=== PATIENT | female | born 2005 | race Caucasian/White ===

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

== ENCOUNTER 2025-04-08 13:55 | Emergency (ER) | payer MEDICAID, SELFPAY ==
[2025-04-08 13:56] VITALS: BP 117/76; PULSE 117; RESP 18; TEMP 36.8; O2SAT 97; BMI 23.3
--- NOTE | 2025-04-08 14:06 | US_ITS ---
PROCEDURE: TRANSVAGINAL W/PREG US 04/08/2025 REASON FOR EXAM: ABDOMINAL PAIN TECHNIQUE: TRANSVAGINAL W/PREG US FINDINGS No visualized intrauterine . No visualized gestational sac. Uterus measures 8.7 x 5.4 x 4.5 cm. No fibroids. Endometrial thickness of 18 mm. Minimal free fluid in the cul-de-sac. Right ovary measures 2.0 x 1.8 x 1.7 cm in the left ovary measures 3.2 x 2.5 x 2.2 cm. Both within preserved vascular flow. US/Transvaginal w/Preg US IMPRESSION: No visualized intrauterine . Reading Location: [id number]
--- NOTE | 2025-04-08 14:13 | EX.ED.DYSGE1 ---
HPI <VALERIA Rodriguez - Last Filed: 04/08/25 20:51> History of Present Illness Chief Complaint: Abd Pain Narrative Narrative: 20-year-old female who is G2, P1 approximately 8 weeks presents with 2 days of left lower quadrant abdominal pain. She states her period was late and she saw [facility] MRI MANAGER about 6 days ago and had a positive urine density test in the office. She initially thought this pain was ligament pain but after it persisted she called them and they recommended she seek ED evaluation. She has had first trimester nausea and vomiting but this is a chronic issue for her managed with Zofran. She denies fever or chills. No urinary symptoms. She is having normal bowel movements. No history of abdominal surgery. She is about 6 months and states her last was high risk because she had labor at 28 weeks and then vaginal delivery at 36 weeks. PFS <VALERIA Rodriguez - Last Filed: 04/08/25 20:51> [facility] Medical History ADHD Home Medications ?Medication ?Instructions ?Recorded ?Last Taken ?Type vit no.95-ferrous 1 tab PO DAILY 08/24/24 04/07/25 History fumarate 28 mg-folic acid 800 mcg tablet () ondansetron HCl 4 mg tablet 4 mg PO Q8H PRN PRN nausea/vomiting 04/08/25 04/07/25 History sertraline 100 mg tablet 100 mg PO DAILY 04/08/25 04/07/25 History Allergy/AdvReac Type Severity Reaction Status Date / Time No Known Allergies Allergy Verified 04/08/25 13:56 Family History no significant family his Social History Smoking Status: Never smoker ROS <VALERIA Rodriguez - Last Filed: 04/08/25 20:51> ROS ED ROS Narrative Constitutional: Negative for fever, chills, malaise. GI: Positive for abdominal pain, nausea, vomiting. Negative for diarrhea, constipation, melena, hematochezia. : Negative for dysuria, hematuria or frequency. EXAM <VALERIA Rodriguez - Last Filed: 04/08/25 20:51> Physical Exam Narrative Exam Narrative: CONST: Patient sitting in no acute distress. EYES: Normal inspection. NECK: Normal inspection. RESP: No respiratory distress, CTAB. CVS: Regular rate and rhythm, no murmur, no gallop. ABD: Soft mild left lower quadrant tenderness, no guarding or rebound, nondistended. Back: Normal inspection, no CVA tenderness. SKIN: Color normal, no rash, warm, dry, intact. EXTREMITIES: Normal appearance, no pedal edema. NEURO: Alert and answering questions appropriately. PSYCH: Normal affect. Const Vital Signs: 04/08/25 13:56 04/08/25 15:56 04/08/25 17:00 Temperature 98.2 F Temperature Source Temporal Pulse Rate 117 H 70 Respiratory Rate 18 Blood Pressure 117/76 110/56 L 108/64 Blood Pressure Mean 89 74 78 Pulse Ox 97 98 100 Oxygen Delivery Method Room Air Room Air Room Air 04/08/25 18:10 Temperature 97.6 F L Temperature Source Pulse Rate 64 Respiratory Rate 18 Blood Pressure 118/78 Blood Pressure Mean 91 Pulse Ox 99 Oxygen Delivery Method <Dr. Darryl Galeano DO - Last Filed: 04/08/25 16:14> Physical Exam Const Vital Signs: 04/08/25 13:56 04/08/25 15:56 04/08/25 17:00 Temperature 98.2 F Temperature Source Temporal Pulse Rate 117 H 70 Respiratory Rate 18 Blood Pressure 117/76 110/56 L 108/64 Blood Pressure Mean 89 74 78 Pulse Ox 97 98 100 Oxygen Delivery Method Room Air Room Air Room Air 04/08/25 18:10 Temperature 97.6 F L Temperature Source Pulse Rate 64 Respiratory Rate 18 Blood Pressure 118/78 Blood Pressure Mean 91 Pulse Ox 99 Oxygen Delivery Method <Dr. Mirna Alcazar MD - Last Filed: 04/08/25 23:34> Physical Exam Const Vital Signs: 04/08/25 13:56 04/08/25 15:56 04/08/25 17:00 Temperature 98.2 F Temperature Source Temporal Pulse Rate 117 H 70 Respiratory Rate 18 Blood Pressure 117/76 110/56 L 108/64 Blood Pressure Mean 89 74 78 Pulse Ox 97 98 100 Oxygen Delivery Method Room Air Room Air Room Air 04/08/25 18:10 Temperature 97.6 F L Temperature Source Pulse Rate 64 Respiratory Rate 18 Blood Pressure 118/78 Blood Pressure Mean 91 Pulse Ox 99 Oxygen Delivery Method [facility] <VALERIA Rodriguez - Last Filed: 04/08/25 20:51> [facility] Narrative Medical decision making narrative: Differential includes but not limited to UTI, threatened miscarriage, ectopic Consults: MRI MANAGER 20-year-old female G2, P1 and first trimester presents with left-sided abdominal pain. She appears well and nontoxic. She is tachycardic at 117 with otherwise normal vital signs. Soft with left upper and lower quadrant tenderness but no peritoneal signs. hCG quant is 989 which is around 4-week . UA is negative. Transvaginal ultrasound shows no intrauterine ; but based on her quant I think it is too early to visualize anything. I spoke with on-call MRI MANAGER Dr. Cortes who advised the patient call the office tomorrow and they will arrange to have her quant rechecked in 2 days. Patient was informed of this and was discharged in stable condition. Patient seen and evaluated with LAKIA. I personally interviewed and examined the patient. I was involved in all aspects of patient's orders, interpretation of results, and treatment. Patient signed out to me by Dr. Galeano pending transvaginal ultrasound results. in brief, the patient thinks she is about 8 weeks along. She has not seen an parachute inspector yet for her first ultrasound. She was presenting with left sided abdominal pain. More LUQ on initial exam. Ultrasound shows no visualized intrauterine . No visualized gestational sac. Minimal free fluid in the cul-de-sac. Right ovary measures 2.0 x 1.8 x 1.7 cm in the left ovary measures 3.2 x 2.5 x 2.2 cm. Both within preserved vascular flow. Given the patients hcg quant this would put her at approximately 3-4 weeks which coincides with no intrauterine seen on transvaginal ultrasound. 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 Lab Data Labs: Laboratory Results - last 24 hr 04/08/25 14:25 HCG, Quant 989 H Urine Color Straw Urine Clarity Clear Urine pH 6.5 Ur Specific [place] 1.010 Urine Protein Negative Urine Glucose (UA) Normal Urine Ketones 5 H Urine Occult Blood Negative Urine Nitrite Negative Urine Bilirubin Negative Urine Urobilinogen Normal Ur Leukocyte Esterase Negative Urine RBC 0-5 SEEN Urine WBC 0-5 SEEN Ur Squamous Epith Cells 5-10 SEEN Urine Bacteria 0 SEEN Urine Mucus 0 SEEN Radiography Diagnostic Testing: Clinical Impression(s) from Imaging Studies Obstetrics Ultrasound 04/08/25 14:06 IMPRESSION: No visualized intrauterine . Reading Location: [id number] <Dr. Darryl Galeano, DO - Last Filed: 04/08/25 16:14> [facility] Lab Data Labs: Laboratory Results - last 24 hr 04/08/25 14:25 HCG, Quant 989 H Urine Color Straw Urine Clarity Clear Urine pH 6.5 Ur Specific [place] 1.010 Urine Protein Negative Urine Glucose (UA) Normal Urine Ketones 5 H Urine Occult Blood Negative Urine Nitrite Negative Urine Bilirubin Negative Urine Urobilinogen Normal Ur Leukocyte Esterase Negative Urine RBC 0-5 SEEN Urine WBC 0-5 SEEN Ur Squamous Epith Cells 5-10 SEEN Urine Bacteria 0 SEEN Urine Mucus 0 SEEN Radiography Diagnostic Testing: Clinical Impression(s) from Imaging Studies Obstetrics Ultrasound 04/08/25 14:06 IMPRESSION: No visualized intrauterine . Reading Location: [facility] Treatment and Re-Evaluation :: I have personally performed a face to face assessment of the patient and have reviewed the LAKIA Note. I performed a substantive portion of the visit including all aspects of the following. My martinez findings include: History: Patient presents with abdominal pain that began yesterday. Patient states that began rather suddenly. Patient describes it as sharp. Patient states it was worse when she moves. Patient states it is worse over the left upper quadrant. Patient states she is approximately 8 weeks . Patient admits to some nausea and vomiting. Patient states she called her MRI MANAGER who referred her to the emergency department. Patient denies any dysuria, frequency, or hematuria. Patient denies any diarrhea, melena, or hematochezia. Exam: Vital signs are stable except for mild tachycardia of 117. Patient is afebrile. Patient is in no acute distress. Oral mucosa is pink and moist. Neck is supple. Trachea is midline. There is no JVD. Heart was regular rate and rhythm. Lungs are clear and equal bilaterally. Abdomen is soft. Bowel sounds are normal. There is left upper quadrant tenderness. There is no rebound or guarding noted. Cranial nerves II through XII are intact. There are no focal motor or sensory deficits noted. Medical Decision Making: Differential diagnosis includes ectopic , urinary tract infection, pyelonephritis, colitis, and urinary tract infection. Urinalysis will be obtained to assess for urinary tract infection and hematuria. Quantitative hCG will be obtained to assess for . Transvaginal ultrasound will be obtained to assess for ectopic . Urinalysis was reviewed. There is no evidence of urinary tract infection or hematuria. Quantitative hCG was reviewed and was 989. Care of the patient was turned over to the oncoming physician pending ultrasound results. <Dr. Mirna Alcazar MD - Last Filed: 04/08/25 23:34> [facility] Narrative Medical decision making narrative: Differential includes but not limited to UTI, threatened miscarriage, ectopic Consults: MRI MANAGER 20-year-old female G2, P1 and first trimester presents with left-sided abdominal pain. She appears well and nontoxic. She is tachycardic at 117 with otherwise normal vital signs. Soft with left upper and lower quadrant tenderness but no peritoneal signs. hCG quant is 989 which is around 4-week . UA is negative. Transvaginal ultrasound shows no intrauterine ; but based on her quant I think it is too early to visualize anything. I spoke with on-call MRI MANAGER Dr. Cortes who advised the patient call the office tomorrow and they will arrange to have her quant rechecked in 2 days. Patient was informed of this and was discharged in stable condition. Patient seen and evaluated with LAKIA. I personally interviewed and examined the patient. I was involved in all aspects of patient's orders, interpretation of results, and treatment. Patient signed out to me by Dr. Galeano pending transvaginal ultrasound results. in brief, the patient thinks she is about 8 weeks along. She has not seen an parachute inspector yet for her first ultrasound. She was presenting with left sided abdominal pain. More LUQ on initial exam. Ultrasound shows no visualized intrauterine . No visualized gestational sac. Minimal free fluid in the cul-de-sac. Right ovary measures 2.0 x 1.8 x 1.7 cm in the left ovary measures 3.2 x 2.5 x 2.2 cm. Both within preserved vascular flow. Given the patients hcg quant this would put her at approximately 3-4 weeks which coincides with no intrauterine seen on transvaginal ultrasound. Do not think this is an ectopic with no significant free fluid seen on ultrasound, largely unremarkable physical exam. 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 Patient discharged from the Emergency Department. I do not feel that the patient's evaluation reveals any acute reason for admission at this time. I instructed them to either follow-up with their primary care physician or promptly return to the Emergency Department for reevaluation should symptoms worsen or new symptoms develop. I explained what symptoms would indicate the need to return to the emergency department. Shared decision making was used. The patient voiced understanding of the treatment plan and is agreeable with it. Clinical impression Left lower quadrant abdominal pain Positive Lab Data Attestation: I reviewed the patient's lab results. Labs: Laboratory Results - last 24 hr 04/08/25 14:25 HCG, Quant 989 H Urine Color Straw Urine Clarity Clear Urine pH 6.5 Ur Specific [place] 1.010 Urine Protein Negative Urine Glucose (UA) Normal Urine Ketones 5 H Urine Occult Blood Negative Urine Nitrite Negative Urine Bilirubin Negative Urine Urobilinogen Normal Ur Leukocyte Esterase Negative Urine RBC 0-5 SEEN Urine WBC 0-5 SEEN Ur Squamous Epith Cells 5-10 SEEN Urine Bacteria 0 SEEN Urine Mucus 0 SEEN Radiography Diagnostic Testing: Clinical Impression(s) from Imaging Studies Obstetrics Ultrasound 04/08/25 14:06 IMPRESSION: No visualized intrauterine . Reading Location: [facility] Discharge Plan Triage Chief Complaint: Abd Pain ED Midlevel Provider: Mary Funes ED Provider: Darryl Galeano Dx/Rx/DC Orders Clinical Impression: Abdominal pain during in first trimester Instructions: Abdominal Pain Prescriptions: No Action ondansetron HCl 4 mg tablet 4 mg PO Q8H PRN PRN (Reason: nausea/vomiting) sertraline 100 mg tablet 100 mg PO DAILY PNV cmb#95-ferrous fumarate-FA [] 28 mg iron- 800 mcg tablet 1 tab PO DAILY Primary Care Provider: Halie Butts Referrals: Tami Cortes DO [Med Staff - Active Staff] - Halie Butts DO [Primary Care Provider] - Activity Restrictions/Additional Instructions: It is too early in your to see anything on the ultrasound. Make sure you call the [facility] MRI MANAGER office tomorrow. The staff there will instruct you when to get your blood work drawn next to check the hCG quant which is the hormone level. Print Language: Lithuanian Disposition Disposition: Home, Self Care Discharge Date/Time: 04/08/25 18:11
[2025-04-08 14:37] LABS: Mucous, Urine 0 SEEN /hpf (<or=2+)
[2025-04-08 14:46] LABS: Color, Urine Straw (Yellow); Glucose, Dipstick Normal (Normal); Ketone-Dipstick 5 mg/dl (Negative); Leukocyte Esterase-Dipstick Negative /ul (Negative); Nitrite-Dipstick Negative (Negative); Occult Blood-Urine Negative /ul (Negative); Protein-Dipstick Negative (Negative); Specific Gravity, Urine 1.010 (1.002-1.030); Urine Bilirubin Dipstick Negative (Negative)
[2025-04-08 15:16] LABS: hCG Titer Quant., Serum 989 mIU/mL (<9 non-preg)
[2025-04-08 15:56] VITALS: BP 110/56; PULSE 70; O2SAT 98
[2025-04-08 16:14] LABS: Red Blood Cells-Urine 0-5 SEEN /hpf (0-5); Squamous Epithelial Cells - UA 5-10 SEEN /hpf (5-10)
[2025-04-08 17:00] VITALS: BP 108/64; O2SAT 100
[2025-04-08 18:10] VITALS: BP 118/78; PULSE 64; RESP 18; TEMP 36.4; O2SAT 99
== END 2025-04-08 18:11 | disposition home or self-care (01) ==
PROVIDERS: Physician Assistant; Emergency Provider Emergency Medicine; PCP Family Medicine; Visit Provider Emergency Medicine
DX: O26.891 Other specified pregnancy related conditions, first trimester (principal); R10.32 Left lower quadrant pain; R11.2 Nausea with vomiting, unspecified; Z3A.01 Less than 8 weeks gestation of pregnancy; Z79.899 Other long term (current) drug therapy
CPT/HCPCS: 76817; 81001; 84702; 99283

== ENCOUNTER 2025-04-29 18:00 | Emergency (ER) | payer MEDICAID, SELFPAY ==
[2025-04-29 18:01] VITALS: BP 116/83; PULSE 97; RESP 16; TEMP 36.8; O2SAT 99; BMI 25.9
--- NOTE | 2025-04-29 18:32 | EX.ED.GENINJ ---
HPI History of Present Illness Chief Complaint: Nausea/Vomiting Narrative Narrative: Chief complaint and HPI: 20-year-old female who is G2, P1 and 7 weeks presents for evaluation of nausea and vomiting. Patient states that she is 7 weeks by outpatient ultrasound with her [employer]. She follows with [facility] [employer]. She states she was at their office today. Patient had hyperemesis gravidarum with her first . She has home Zofran. She states the nausea and vomiting worsened today with little p.o. intake. SAL[employer]PARTMENT SUPER[employer]OR told her to come to the emergency department for fluids. She denies any fever, chills, shortness of breath, chest pain, abdominal pain, vaginal bleeding, dysuria. Review of systems: See HPI Medications: As listed on the chart Allergies: As listed on the chart PFSH: Per chart Vital signs: As listed on the chart. Reviewed. Physical exam: Gen: A&O x3, NAD Head: Normocephalic, atraumatic Eyes: No sclera icterus, conjunctiva clear ENT: Mildly dry mucous membranes Neck: Trachea midline, No JVD CV: RRR, no murmurs, no peripheral edema Resp: Lungs CTA BL, no w/r/c GI: Abd soft, non-distended, non-tender, no r/r/g Musc: Full ROM, no deformity Skin: Warm, dry Neuro: Alert, oriented, grossly intact, sensation intact Psych: Cooperative, appropriate mood and affect [facility] Medical History ADHD Home Medications ?Medication ?Instructions ?Recorded ?Last Taken ?Type vit no.95-ferrous 1 tab PO DAILY 08/24/24 04/07/25 History fumarate 28 mg-folic acid 800 mcg tablet () ondansetron HCl 4 mg tablet 4 mg PO Q8H PRN PRN nausea/vomiting 04/08/25 04/07/25 History sertraline 100 mg tablet 100 mg PO DAILY 04/08/25 04/07/25 History Allergy/AdvReac Type Severity Reaction Status Date / Time No Known Allergies Allergy Verified 04/29/25 18:01 Social History Smoking Status: Never smoker EXAM Physical Exam Const Vital Signs: 04/29/25 18:01 04/29/25 20:01 Temperature 98.3 F Temperature Source Temporal Pulse Rate 97 75 Respiratory Rate 16 24 H Blood Pressure 116/83 H 106/76 Blood Pressure Mean 94 86 Pulse Ox 99 100 Oxygen Delivery Method Room Air Room Air MDM MDM MDM Narrative Medical decision making narrative: 20-year-old female who is G2, P1 and 7 weeks presents for evaluation of nausea and vomiting. Patient states that she is 7 weeks by outpatient ultrasound with her [employer]. She follows with [facility] [employer]. Patient had hyperemesis gravidarum with her first . She has home Zofran. She states the nausea and vomiting worsened today with little p.o. intake. SAL[employer]PARTMENT SUPER[employer]OR told her to come to the emergency department for fluids. She denies any fever, chills, shortness of breath, chest pain, abdominal pain, vaginal bleeding, dysuria. Differential diagnosis includes but is not limited to nausea vomiting and early , dehydration, electrolyte abnormality, UTI. NS bolus and Zofran ordered. Basic labs ordered with UA. Patient not having any abdominal pain or vaginal bleeding therefore I do not think any ultrasound is needed at this time. CBC with leukocytosis of 14.6. This is not unusual in . No anemia. BMP relatively unremarkable without significant electrolyte abnormality or KUNAL. UA positive for ketones which is consistent with nausea and vomiting. No UTI but she does have +1 bacteria. Will treat with Keflex for asymptomatic bacteriuria in to prevent UTI. Patient was updated of all results for and understand the plan. Symptoms have improved with medications here. Able to tolerate p.o. intake. Patient stable to discharge home. Does not need prescription for antinausea medicine as she states she has it at home. Impression: 1. Nausea and vomiting in first trimester 2. Asymptomatic bacteriuria in Lab Data Labs: Laboratory Results - last 24 hr 04/29/25 04/29/25 18:12 19:29 WBC 14.6 H RBC 5.23 Hgb 14.9 Hct 44.4 MCV 84.9 MCH 28.5 MCHC 33.6 RDW Std Deviation 38.5 RDW Coeff of Derek 12.6 Plt Count 283 MPV 11.4 Immature Gran % (Auto) 0.500 Neut % (Auto) 86.1 H Lymph % (Auto) 8.4 L [place] % (Auto) 4.6 Eos % (Auto) 0.1 Baso % (Auto) 0.3 Absolute Neuts (auto) 12.6 H Absolute Lymphs (auto) 1.23 Nucleated RBC % 0 Sodium 136 Potassium 3.7 Chloride 102 Carbon Dioxide 20.2 L Anion Gap 14 BUN 5 Creatinine 0.54 L Estim Creat Clear Calc 169.93 Est GFR (MDRD) Non-Af 135 BUN/Creatinine Ratio 9.8 L Glucose 88 Calcium 9.7 Urine Color Yellow Urine Clarity Sl. Cloudy Urine pH 6.0 Ur Specific [place] 1.020 Urine Protein 30 H Urine Glucose (UA) Normal Urine Ketones 150 A* Urine Occult Blood Negative Urine Nitrite Negative Urine Bilirubin Negative Urine Urobilinogen Normal Ur Leukocyte Esterase Negative Urine RBC 0-5 SEEN Urine WBC 0-5 SEEN Ur Squamous Epith Cells 5-10 SEEN Urine Bacteria 1+ Urine Mucus 0 SEEN Discharge Plan Triage Chief Complaint: Nausea/Vomiting ED Provider: Nate Bowling Dx/Rx/DC Orders Prescriptions: No Action ondansetron HCl 4 mg tablet 4 mg PO Q8H PRN PRN (Reason: nausea/vomiting) sertraline 100 mg tablet 100 mg PO DAILY PNV no.95-ferrous fumarate-FA [] 28 mg iron- 800 mcg tablet 1 tab PO DAILY Primary Care Provider: Halie Butts Referrals: Halie Butts, [Primary Care Provider] - Print Language: Togolese
[2025-04-29] MEDS: 0.9% Normal Saline (1000mL) 1,000 ML 1000 ML IV (18:37)
[2025-04-29 18:45] LABS: Hematocrit 44.4 % (37-47); Hemoglobin 14.9 g/dL (12.0-15.0); Immature Granulocytes Count 0.080 X10^3/uL (0.0-0.0); Mean Corp Hgb Conc 33.6 g/dL (32-36); Mean Corpuscular Volume 84.9 fL (81-99); Mean Platelet Vol. 11.4 fl (6.2-12.0); NRBC Flagged by Analyzer 0 % (0-5); Platelet Count 283 K/mm3 (150-450); RBC Distribution Width CV 12.6 % (11.6-14.6); RBC Distribution Width SD 38.5 fl (35.1-43.9); Red Blood Count 5.23 M/mm3 (4.2-5.4); White Blood Count 14.6 K/mm3 (4.4-11.0)
[2025-04-29 19:40] LABS: Anion Gap 14 (5-15); BUN 5 mg/dL (4-19); BUN/Creat Ratio 9.8 RATIO (10-20); Calcium,Total 9.7 mg/dL (7.6-11.0); Carbon Dioxide 20.2 mmol/L (21.0-32.0); Chloride 102 mmol/L (98-108); Estimated Creatinine Clearance 169.93 ml/min (50-250); Glucose 88 mg/dL (70-99); Potassium 3.7 mmol/L (3.3-5.1)
[2025-04-29 19:41] LABS: Mucous, Urine 0 SEEN /hpf (<or=2+)
[2025-04-29 19:53] LABS: Color, Urine Yellow (Yellow); Glucose, Dipstick Normal (Normal); Leukocyte Esterase-Dipstick Negative /ul (Negative); Nitrite-Dipstick Negative (Negative); Occult Blood-Urine Negative /ul (Negative); Protein-Dipstick 30 mg/dl (Negative); Specific Gravity, Urine 1.020 (1.002-1.030); Urine Bilirubin Dipstick Negative (Negative)
[2025-04-29 20:01] VITALS: BP 106/76; PULSE 75; RESP 24; O2SAT 100
[2025-04-29 20:21] LABS: Ketone-Dipstick 150 mg/dl (Negative)
[2025-04-29 20:47] LABS: Squamous Epithelial Cells - UA 5-10 SEEN /hpf (5-10)
[2025-04-29 20:49] LABS: Red Blood Cells-Urine 0-5 SEEN /hpf (0-5)
[2025-04-29 21:27] VITALS: BP 101/57; PULSE 75; RESP 18; TEMP 36.7; O2SAT 100
== END 2025-04-29 21:37 | disposition home or self-care (01) ==
PROVIDERS: Emergency Provider Surgery; PCP Family Medicine; Visit Provider Surgery
DX: O21.9 Vomiting of pregnancy, unspecified (principal); Z3A.01 Less than 8 weeks gestation of pregnancy; R82.71 Bacteriuria; O99.891 Other specified diseases and conditions complicating pregnancy
CPT/HCPCS: 80048; 81001; 85025; 87086; 87088; 96361; 96374; 99284; A4216; J2405

== ENCOUNTER 2025-05-06 18:02 | Observation (INO) | payer MEDICAID, SELFPAY ==
[2025-05-06 18:04] VITALS: BP 120/80; PULSE 73; RESP 16; TEMP 36.9; O2SAT 98; BMI 25.6
[2025-05-06] MEDS: 0.9% Normal Saline (1000mL) 1,000 ML 1000 ML IV (18:34)
[2025-05-06 19:09] LABS: Anion Gap 12 (5-15); BUN 6 mg/dL (4-19); BUN/Creat Ratio 12.8 RATIO (10-20); Calcium,Total 9.2 mg/dL (7.6-11.0); Carbon Dioxide 20.9 mmol/L (21.0-32.0); Chloride 104 mmol/L (98-108); Estimated Creatinine Clearance 182.39 ml/min (50-250); Glucose 83 mg/dL (70-99); Potassium 4.0 mmol/L (3.3-5.1)
[2025-05-06 19:15] VITALS: BP 102/75; BP 105/70; BP 95/54; PULSE 70; PULSE 80; PULSE 93
[2025-05-06 20:03] VITALS: BP 101/66; PULSE 79; RESP 14; O2SAT 98
[2025-05-06] MEDS: 0.9% Normal Saline (1000mL) 1,000 ML 999 ML IV (21:08)
[2025-05-06 21:09] LABS: Color, Urine Yellow (Yellow); Glucose, Dipstick Normal (Normal); Leukocyte Esterase-Dipstick 100 /ul (Negative); Nitrite-Dipstick Negative (Negative); Occult Blood-Urine Negative /ul (Negative); Protein-Dipstick 15 mg/dl (Negative); Specific Gravity, Urine 1.025 (1.002-1.030); Urine Bilirubin Dipstick Negative (Negative)
[2025-05-06 21:17] LABS: Ketone-Dipstick 150 mg/dl (Negative)
[2025-05-06 21:50] VITALS: BP 105/81; PULSE 81; RESP 14; O2SAT 99
[2025-05-06 23:15] VITALS: BP 102/71; PULSE 78; RESP 14; O2SAT 99
--- NOTE | 2025-05-06 23:25 | EX.ED.DYSGE1 ---
HPI History of Present Illness Chief Complaint: Nausea/Vomiting Detail of Chief Complaint: Nausea and vomiting for past several days. Informant: patient Onset/Context/Timing Onset: Days Context: Sudden Onset Timing: Continuous (Nauseous continuous), Intermittent and Waxes and wanes Quality: Patient started vomiting 3 days ago. Yesterday she had numerous episodes o Location: Nausea vomiting, 8 weeks gestation Current Severity: Severe Maximum Severity: Severe Worsened by: Relieved by: Nothing Associated Symptoms Associated Symptoms: Thirst, dry mouth, orthostatic symptoms, decreased urine output Narrative Narrative: Patient is a 20-year-old Ab0 female who is 8 weeks gestation. She is followed at the [facility]. She is present on Zofran. She states she is still vomiting. She denies fever, chills night sweats. She denies upper respiratory tract infectious symptoms. She denies chest discomfort. She complains of abdominal pain with vomiting. She has vomited numerous times. She denies coffee-ground emesis or hematemesis. She denies dysuria, frequency, urgency or hematuria. [id number], she reports decreased urine output. She gets orthostatic lightheadedness. She denies myalgias or arthralgias. She denies rash. She did report hyperemesis gravidarum with first . Prior similar symptoms: Yes Recent Illness/Hospitalization: [facility] Medical History Musculoskeletal pain Pyelonephritis ADHD Home Medications ?Medication ?Instructions ?Recorded ?Last Taken ?Type vit no.95-ferrous 1 tab PO DAILY 08/24/24 04/07/25 History fumarate 28 mg-folic acid 800 mcg tablet () ondansetron HCl 4 mg tablet 4 mg PO Q8H PRN PRN nausea/vomiting 04/08/25 04/07/25 History sertraline 100 mg tablet 100 mg PO DAILY 04/08/25 04/07/25 History cephalexin 500 mg capsule 500 mg PO BID 7 days #14 caps 04/29/25 Unknown Rx Allergy/AdvReac Type Severity Reaction Status Date / Time No Known Allergies Allergy Verified 05/06/25 18:06 Social History (Updated 05/06/25 @ 23:[address] Isidro Payne MD) household members: spouse and children Smoking Status: Never smoker ROS ROS ED Constitutional Constitutional ED: Denies chills, fever(s), subjective, sweats or weight loss Eyes Eyes: Denies blurry vision or change in vision ENT ENT ED: Reports other Details: Dry mouth and thirst ; Denies ear pain, rhinorrhea or sore throat Cardiovascular Cardiovascular: Denies chest pain or palpitations Respiratory/Chest Respiratory/Chest: Reports cough, dyspnea and dyspnea on exertion Gastrointestinal Gastrointestinal: Reports abdominal pain, nausea and vomiting; Denies diarrhea Genitourinary Genitourinary ED: Reports other Details: Decreased urine output ; Denies dysuria, hematuria or urinary frequency Musculoskeletal Musculoskeletal: Denies arthralgias or myalgias Integumentary Denies rash Neurologic Neurologic: Reports weakness; Denies paresthesias Endocrine Endocrinology: Denies cold intolerance or heat intolerance Hematologic/Lymphatic Hematologic/Lymphatic: Reports systems reviewed and no addt'l complaints, except as documented EXAM Physical Exam Const Vital Signs: 05/06/25 18:04 05/06/25 19:15 05/06/25 20:03 Temperature 98.5 F Temperature Source Oral Pulse Rate 73 79 Pulse Rate [Lying] 70 Pulse Rate [Sitting (for 1 minute prior to obtaining)] 80 Pulse Rate [Standing (for 1 minute prior to obtaining)] 93 Respiratory Rate 16 14 Blood Pressure 120/80 101/66 Blood Pressure [Lying] 95/54 L Blood Pressure [Sitting (for 1 minute prior to obtaining)] 102/75 Blood Pressure [Standing (for 1 minute prior to obtaining)] 105/70 Blood Pressure Mean 93 77 Blood Pressure Mean [Lying] 67 Blood Pressure Mean [Sitting (for 1 minute prior to obtaining)] 84 Blood Pressure Mean [Standing (for 1 minute prior to obtaining)] 81 Pulse Ox 98 98 Oxygen Delivery Method Room Air Room Air 05/06/25 21:50 05/06/25 23:15 Temperature Temperature Source Pulse Rate 81 78 Pulse Rate [Lying] Pulse Rate [Sitting (for 1 minute prior to obtaining)] Pulse Rate [Standing (for 1 minute prior to obtaining)] Respiratory Rate 14 14 Blood Pressure 105/81 H 102/71 Blood Pressure [Lying] Blood Pressure [Sitting (for 1 minute prior to obtaining)] Blood Pressure [Standing (for 1 minute prior to obtaining)] Blood Pressure Mean 89 81 Blood Pressure Mean [Lying] Blood Pressure Mean [Sitting (for 1 minute prior to obtaining)] Blood Pressure Mean [Standing (for 1 minute prior to obtaining)] Pulse Ox 99 99 Oxygen Delivery Method Room Air Room Air Positive well nourished and well developed Constitutional Narrative: Patient is ill-appearing pale. Vital signs noted. Orthostatic vital signs were negative. General Appearance ED: well developed and pallor; Negative for cyanotic or diaphoretic HEENT Reports dry mucous membranes HEENT Narrative: Head is atraumatic normocephalic. Ears are normal. Nares patent. Posterior pharynx is normal. Mouth ED: Yes dry mucous membranes Mouth: dry mucous membranes Eyes PERRL and EOMs intact bilaterally General Eye ED: Negative for pale conjunctiva or scleral icterus Neck no lymphadenopathy, supple and no JVD Chest Wall inspection of chest normal and palpation of chest normal Resp normal respiratory effort and clear to auscultation bilaterally Cardio regular rate, regular rhythm, S1 normal heart sound, S2 normal heart sound and no murmurs GI non-distended and no masses; Negative for normal to inspection, nondistended, normoactive bowel sounds, non-tender or hepatosplenomegaly Auscultation: hypoactive bowel sounds Palpation: soft and tender epigastric Back/Spine no CVA tenderness Extremity normal to inspection Neuro oriented x3 and CN's II-XII intact bilaterally Sensorium / Orientation: alert Psych mental status grossly normal Skin no rashes or lesions noted, no wounds and No skin turgor normal General Skin Exam: pallor; Negative for jaundice MDM MDM MDM Narrative Medical decision making narrative: Clinically patient looks dehydrated. Will order 1 L normal saline. She did not urinate after first liter. Second liter was ordered. Patient was initially treated with IV Zofran. She reports nausea with improvement. She was then given 10 mg of Reglan. She continued to have nausea and vomiting. She has made very minimal urine and spite of receiving 2 L of normal saline which is a proximately 30 cc/kg. Lab Data Attestation: I reviewed the patient's lab results. Lab results narrative: Basic metabolic panel is unremarkable. Urine reveals a spec gravity 1.025 with positive proteins and ketones. Labs: Laboratory Results - last 24 hr 05/06/25 05/06/25 18:33 20:55 Sodium 137 Potassium 4.0 Chloride 104 Carbon Dioxide 20.9 L Anion Gap 12 BUN 6 Creatinine 0.50 L Estim Creat Clear Calc 182.39 Est GFR (MDRD) Non-Af 138 BUN/Creatinine Ratio 12.8 Glucose 83 Calcium 9.2 Urine Color Yellow Urine Clarity Cloudy Urine pH 6.0 Ur Specific [place] 1.025 Urine Protein 15 H Urine Glucose (UA) Normal Urine Ketones 150 A* Urine Occult Blood Negative Urine Nitrite Negative Urine Bilirubin Negative Urine Urobilinogen Normal Ur Leukocyte Esterase 100 H Treatment and Re-Evaluation :: Since patient has made minimal urine still having nausea vomiting after administration of 2 different antiemetics and unable to pass p.o. challenge she was admitted to Dr. Belle Quiles service. Discharge Plan Dx/Rx/DC Orders Clinical Impression: Hyperemesis gravidarum before end of 22 week gestation with dehydration, Ketosis, Failure of outpatient treatment Disposition Disposition: Acute Care Hospital [facility]
[2025-05-06 23:41] VITALS: BP 108/60; PULSE 80; RESP 16; TEMP 36.9; O2SAT 100
--- NOTE | 2025-05-06 23:52 | ED.RN ---
REPORT CALLED TO [facility]. NO FURTHER QUESTIONS AT THIS TIME.
--- OUTSIDE RECORDS SUMMARY | 2025-05-07 | XMS RPT_ITS | CCD ---
Author Organization [facility] Care Team Providers Care Wastewater Treatment Supervisor Name Role Phone Kuldeep Khan MD Primary Care Provider [phone] Unavailable Primary Care Provider UnavailKuldeep Lindo MD Primary Care Provider Rachel SEALS, Paula Najera Unavailable Unavailable DAMON BEAVER Attending Unavailable STRONG, KULDEEP H Primary Care Unavailable MANISH JOHNSON Admitting Unavailable Kuldeep Khan MD Primary Care Provider Unavailable Primary Care Provider UnavailDr. Halie Evans DO Primary Care Provider Dr. Darryl Galeano DO Emergency Provider Diony Ferreira MD Primary Care Provider Dr. Darryl Galeano DO Attending Provider Dr. Nate Bowling DO Emergency Provider TOBY ROME Attending Unavailable STRONG, KULDEEP H Primary Care Unavailable TOBY ROME Attending Unavailable TOBY ROME Referring Unavailable STRONG, KULDEEP H Primary Care Unavailable PEGGY CEDILLO Attending Unavailable STRONG, KULDEEP H Primary Care Unavailable SETH CASTRO Attending Unavailable STRONG, KLUDEEP H Primary Care Unavailable FERREIRA, DIONY Primary Care Unavailable FERREIRADIONY Attending Unavailable TOBY ROME Attending Unavailable FERREIRA, DIONY Primary Care Unavailable ENE KING Attending Unavailable FERREIRA, DIONY Primary Care Unavailable HAURY, TOBY Referring Unavailable STRONG, KULDEEP H Primary Care Unavailable SUELLEN CORTES Attending Unavailable STRONG, KULDEEP H Primary Care Unavailable SELF Referring Unavailable PARADISE DIAZ Attending Unavailable LISA GREGORY Attending Unavailable STRONG, KULDEEP H Primary Care Unavailable FERREIRA, DIONY Referring Unavailable FERREIRA, DIONY Referring Unavailable STRONG, KULDEEP H Primary Care Unavailable ALISON GRIMM Attending Unavailable BELLE CARRILLO Referring Unavailable Mathew'PEGGY RAMEY Attending Unavailable STRONG, KULDEEP H Primary Care Unavailable HAURY, TOBY Referring Unavailable STRONG, KULDEEP H Primary Care Unavailable HAURY, TOBY Referring Unavailable STRONG, KULDEEP H Primary Care Unavailable BELLE CARRILLO Attending Unavailable STRONG, KULDEEP H Primary Care Unavailable HAURY, TOBY Attending Unavailable STRONG, KULDEEP H Primary Care Unavailable STRONG, KULDEEP H Primary Care Unavailable HAURY, TOBY Referring Unavailable PEGGY CEDILLO Attending Unavailable STRONG, KULDEEP H Primary Care Unavailable STRONG, KULDEEP H Primary Care Unavailable SELF Referring Unavailable DIONY FERREIRA Referring Unavailable FERREIRA, DIONY Primary Care Unavailable STRONG, KULDEEP H Primary Care Unavailable ALISON GRIMM Attending Unavailable KATINA REDDY Attending Unavailable STRONG, KULDEEP H Primary Care Unavailable STRONG, KULDEEP H Primary Care Unavailable HAURY, TOBY Attending Unavailable STRONG, KULDEEP H Primary Care Unavailable HAURY, TOBY Attending Unavailable STRONG, KULDEEP H Primary Care Unavailable STRONG, KULDEEP H Primary Care Unavailable THOMPSON GONZALEZ Attending Unavail able STRONG, KULDEEP H Primary Care Unavailable STRONG, KULDEEP H Referring Unavailable DIONY FERREIRA Attending Unavailable HAURY, TOBY Attending Unavailable STRONG, KULDEEP H Primary Care Unavailable HAURY, TOBY Referring Unavailable STRONG, KULDEEP H Primary Care Unavailable KATINA REDDY Referring Unavailable STRONG, KULDEEP H Primary Care Unavailable BELLE CARRILLO Attending Unavailable STRONG, KULDEEP H Primary Care Unavailable JEREMI CARRILLOCA Sotero Referring Unavailable STRONG, KULDEEP H Primary Care Unavailable KB BELLE L Referring Unavailable PEGGY CEDILLO Attending Unavailable STRONG, KULDEEP H Primary Care Unavailable Debbie Cedilloica Admitting Unavailable Debbie Cedilloica Attending Unavailable Strong, Kuldeep Primary Care Unavailable Belle Carrillo Attending Unavailable Kb Belle Referring Unavailable Strong, Kuldeep Primary Care Unavailable CedilloDebbiePeggy Attending Unavailable Cedillo, Peggy Referring Unavailable Strong, Kuldeep Primary Care Unavailable Strong, Kuldeep Primary Care Unavailable Debbie Cedilloica Attending Unavailable Dinorah Cortesa Attending Unavailable Wiswell, Suellen Referring Unavailable Strong, Kuldeep Primary Care Unavailable Strong, Kuldeep Primary Care Unavailable Alison Grimm Admitting Unavailable Alison Grimm Attending Unavailable Alison Grimm Referring Unavailable Nate Bowling Attending UnavailHalie Evans Primary Care Unavailable Halie Butts Primary Care Unavailable Darryl Galeano Attending Unavailable Darryl Galeano Attending Unavailable Strong, Kuldeep Primary Care Unavailable Strong, Kuldeep Primary Care Unavailable Addie Bustos Attending Unavailable Kuldeep Khan Primary Care Unavailable Provider, Ed Physician Attending Unavailab Thompson Morejon Admitting Unavail able Thompson Trevino Attending Unavail able Kuldeep Khan Primary Care Unavailable Peggy Cedillo Consulting Unavailable Medications Current Medications Medication Drug Class(es) Dates Sig (Normalized) Sig (Original) aspirin 81 mg delayed release oral tablet (4 sources) Platelet Aggregation Inhibitor, Nonsteroidal Anti-inflammatory Drug Start: 04-29-2025 take 1 tablet by mouth once daily aspirin, enteric coated (ECOTRIN LOW STRENGTH) 81 mg EC tablet Indications: with uncertain dates in first trimester (HCC) Take 1 tablet by mouth once daily. 90 tablet 3 04/29/2025 Active Start: 06-05-2024 End: 06-30-2024 take 1 tablet by mouth once daily aspirin, enteric coated (ASPIRIN, ENTERIC COATED) 81 mg EC tablet Take 1 tablet by mouth once daily. 30 tablet 4 06/05/2024 06/30/2024 Discontinued cephalexin 500 mg oral capsule (10 sources) Cephalosporin Antibacterial Start: 04-29-2025 take 1 capsule by mouth twice daily Cephalexin 500 mg capsule Active 500 mg PO TWICE A DAY 14 7 0 April 29, 2025 12:00am Start: 01-12-2025 End: 01-19-2025 take 1 capsule by mouth four times daily cephALEXin (KEFLEX) 500 mg capsule Take 1 capsule by mouth four times daily for 7 days. 28 capsule 01/12/2025 01/19/2025 Active Start: 11-12-2024 End: 11-19-2024 take 1 capsule by mouth four times daily cephALEXin (KEFLEX) 500 mg capsule Take 1 capsule by mouth four times daily for 7 days. 28 capsule 11/12/2024 11/19/2024 Active Start: 10-13-2024 End: 10-29-2024 take 1 capsule by mouth four times daily cephALEXin (KEFLEX) 500 mg capsule Take 1 capsule by mouth four times daily. 40 capsule 10/13/2024 10/29/2024 Discontinued cholecalciferol 0.025 mg oral capsule (5 sources) Vitamin D Start: 04-16-2025 End: 04-16-2026 take 1 capsule by mouth once daily Cholecalciferol, Vitamin D3, (VITAMIN D) 25 mcg (1,000 unit) cap Take 1 capsule by mouth once daily. 90 capsule 3 04/16/2025 04/16/2026 Active clotrimazole 10 mg/ml topical cream (1 source) Azole Antifungal Start: 11-12-2024 End: 11-19-2024 clotrimazole (LOTRIMIN) 1 % cream Apply to affected area two times a day for 7 days. 12 g 11/12/2024 11/19/2024 Active hydrocortisone 0.01 mg/mg topical ointment (8 sources) Corticosteroid Start: 04-14-2025 End: 05-05-2025 hydrocortisone 1 % ointment Indications: Eczema, unspecified type Apply to affected area two times a day for 21 days. Apply twice daily for 2 weeks then daily for 1 week 56 g 04/14/2025 05/05/2025 Active ondansetron 4 mg oral tablet (20 sources) Serotonin-3 Receptor Antagonist Start: 04-22-2025 take 1 tablet by mouth every eight hours as needed ondansetron (ZOFRAN) 4 mg tablet Take 1 tablet by mouth every 8 hours as needed for nausea/vomiting. 30 tablet 04/22/2025 Active Start: 04-04-2025 End: 04-19-2025 take 1 tablet by mouth every eight hours as needed ondansetron (ZOFRAN) 4 mg tablet Take 1 tablet by mouth every 8 hours as needed for nausea/vomiting. 30 tablet 04/22/2025 Active Start: 10-22-2024 End: 10-24-2024 take 1 tablet by mouth every eight hours as needed for nausea Ondansetron 4 mg tablet,disintegrating Discontinued 4 mg PO EVERY 8 HOURS NEEDED as needed for nausea October 22, 2024 1:00am October 24, 2024 11:06am Start: 09-12-2024 End: 10-10-2024 take 1 tablet by mouth every eight hours as needed for nausea Ondansetron 4 mg tablet,disintegrating Discontinued 4 mg PO EVERY 8 HOURS NEEDED as needed for Nausea September 12, 2024 1:00am October 10, 2024 10:43pm Start: 08-03-2024 End: 10-12-2024 take 1 tablet by mouth once daily Ondansetron Hcl 4 mg tablet Discontinued 4 mg PO DAILY August 03, 2024 1:00am October 12, 2024 2:21am Start: 03-27-2024 End: 11-26-2024 take 1 tablet by mouth every eight hours as needed for nausea Ondansetron Hcl 4 mg tablet Discontinued 4 mg PO EVERY 8 HOURS NEEDED as needed for nausea/vomiting April 07, 2024 12:00am May 26, 2024 5:57pm oseltamivir 75 mg oral capsule (1 source) Neuraminidase Inhibitor Start: 09-19-2023 End: 09-24-2023 take 1 capsule by mouth twice daily oseltamivir (TAMIFLU) 75 mg capsule Indications: Influenza A Take 1 capsule by mouth two times a day for 5 days. 10 capsule 0 09/19/2023 09/24/2023 Active Comment on above: Take 1 capsule by mo [facility] two times a day for 5 days. Pnv Cmb#95-Ferrous Fumarate-Fa () 28 mg iron- 800 mcg tablet (1 source) Start: 08-24-2024 Pnv Cmb#95-Ferrous Fumarate-Fa () 28 mg iron- 800 mcg tablet Active 1 {tbl} PO DAILY August 24, 2024 1:00am Pnv No.95-Ferrous Fumarate-Fa () 28 mg iron- 800 mcg tablet (1 source) Start: 08-24-2024 Pnv No.95-Ferrous Fumarate-Fa () 28 mg iron- 800 mcg tablet Active 1 {tbl} PO DAILY August 24, 2024 1:00am vits no.138/folic/dha (ALIVE ORAL) (6 sources) vits no.138/folic/dha (ALIVE ORAL) Take by mouth. Active promethazine hydrochloride 12.5 mg rectal suppository (20 sources) Phenothiazine Start: 04-19-2025 take 12.5 mg rectal route every six hours as needed promethazine (PHENERGAN) 12.5 mg suppository 1 suppository by RECTAL route every 6 hours as needed. 40 suppository 1 04/19/2025 Active Start: 05-08-2024 End: 10-10-2024 take 1 tablet by mouth every six hours as needed for nausea and vomiting Promethazine 25 mg tablet Discontinued 25 mg PO EVERY 6 HOURS NEEDED as needed for nausea and vomiting May 26, 2024 12:00am October 10, 2024 10:41pm sertraline 100 mg oral tablet (20 sources) Serotonin Reuptake Inhibitor Start: 02-25-2025 End: 02-25-2026 take 1 tablet by mouth once daily sertraline (ZOLOFT) 100 mg tablet Indications: mood disorder (HCC) Take 1 tablet by mouth once daily. 90 tablet 3 02/25/2025 02/25/2026 Active Start: 11-26-2024 End: 02-25-2025 take 1 tablet by mouth once daily sertraline (ZOLOFT) 50 mg tablet Indications: mood disorder (HCC) Take 1 tablet by mouth once daily. 90 tablet 3 12/30/2024 02/25/2025 Discontinued Completed/Discontinued Medications Medication Drug Class(es) Dates Sig (Normalized) Sig (Original) acetaminophen 500 mg oral tablet (4 sources) Start: 10-10-2024 End: 04-08-2025 take 1-10 tablets by mouth every six hours as needed for pain Acetaminophen 500 mg Tablet Discontinued 1000 mg PO EVERY 6 HOURS NEEDED as needed for Pain 1-10 Or Fever 0 0 October 24, 2024 1:00am April 08, 2025 2:23pm 3-bead 24 hr amphetamine aspartate 3.125 mg / amphetamine sulfate 3.125 mg / dextroamphetamine saccharate 3.125 mg / dextroamphetamine sulfate 3.125 mg extended release oral capsule (5 sources) Central Nervous System Stimulant Start: 07-04-2022 End: 06-21-2023 take 1 capsule by mouth once daily dextroamphetamine -amphetamine (MYDAYIS) 12.5 mg CT24 Indications: Attention deficit hyperactivity disorder (ADHD), combined type Take 1 capsule by mouth once daily for 90 days. 90 Each 0 07/04/2022 06/21/2023 Discontinued (Discontinued by Patient) Comment on above: Take 1 capsule by [facility] once daily for 90 days. betamethasone 3 mg/ml / betamethasone acetate 3 mg/ml injectable suspension (10 sources) Corticosteroid Start: 08-25-2024 End: 08-25-2024 betamethasone acetate-betametha sone sodium phosphate 12 mg injection (CELESTONE) Start: 08-25-2024 End: 08-25-2024 inject 1 dose by intramuscular injection once 12 mg, INTRAMUSCULAR, ONCE, 1 dose, On Sat08/25/24 at 1700, Protect From Light. Start: 08-24-2024 End: 08-26-2024 inject 12 mg by intramuscular injection every twenty-four hours betamethasone acetate-betamethasone sodium phosphate 12 mg injection (CELESTONE) Start: 08-24-2024 End: 08-26-2024 inject 2 mL by intramuscular injection every twenty-four hours betamethasone acetate-betamethasone sodium phosphate (CELESTONE) 6 mg/mL injection Indications: 28 weeks gestation of , Supervision of high risk in second trimester , Threatened premature labor, antepartum Inject 2 mL intramuscularly every 24 hours for 2 days. 4 mL 08/24/2024 08/26/2024 Active cloNIDine hydrochloride 0.1 mg oral tablet (11 sources) Central alpha-2 Adrenergic Agonist Start: 06-21-2023 End: 03-27-2024 take 1 tablet by mouth twice daily cloNIDine HCl (CATAPRES) 0.1 mg tablet Take 1 tablet by mouth two times a day. 90 tablet 1 06/21/2023 03/27/2024 Discontinued Start: 07-04-2022 End: 06-21-2023 take 1 tablet by mouth once daily at bedtime cloNIDine HCl (CATAPRES) 0.2 mg tablet Indications: Attention deficit hyperactivity disorder (ADHD), combined type Take 1 tablet by mouth daily at bedtime. 90 tablet 3 07/04/2022 06/21/2023 Discontinued (Dosage adjustment) Comment on above: Take 1 tablet by ashleigh th daily at bedtime. Take 1 tablet by ashleigh th two times a day. cyclobenzaprine hydrochloride 5 mg oral tablet (11 sources) Muscle Relaxant Start: 025 End: take 1 tablet by mouth three times daily as needed for muscle spasms Cyclobenzaprine 5 mg Tablet Discontinued 5 mg PO 3 TIMES DAILY NEEDED as needed for Muscle Spasm 0 0 October 13, 2024 1:00am October 24, 2024 11:06am 24 hr dexmethylphenidate hydrochloride 10 mg extended release oral capsule (4 sources) Central Nervous System Stimulant Start: 018 End: Dexmethylphenidate 10 MG capsule,ER biphasic 50-50 Discontinued 10 mg PO DAILY November 25, 2017 12:00am April 07, 2024 6:47pm ADHD Start: 11-25-2017 End: 04-07-2024 Dexmethylphenidate 20 MG cap sharan,ER biphasic 50-50 Discontinued 20 mg PO DAILY November 25, 2017 12:00am April 07, 2024 6:47pm ADHD 1 ml diphenhydrAMINE hydrochloride 50 mg/ml cartridge (1 source) Histamine-1 Receptor Antagonist Start: 05-17-2024 End: 05-17-2024 25 mg, Intravenous, ONCE, 1 dose, On 05/17/24 at 1730 Ethinyl Estradiol / norgestimate (7 sources) Progestin, Estrogen Start: 06-15-2022 End: 10-07-2023 take 1 tablet by mouth once daily JIMBO 0.25-35 mg-mcg per tablet Take 1 tablet by mouth once daily. 0 06/15/2022 10/07/2023 Discontinued (Course of therapy completed) Start: 06-15-2022 take 1 tablet by ashleigh th once daily JIMBO 0.25-35 mg-mcg per tablet Take 1 tablet by mouth once daily. 0 06/15/2022 Active Comment on above: Take 1 tablet by ashleigh th once daily. famotidine 20 mg oral tablet (16 sources) Histamine-2 Receptor Antagonist Start: End: take 1 tablet by mouth twice daily famotidine (PEPCID) 20 mg tablet Take 1 tablet by mouth two times a day. 60 tablet 1 10/15/2024 11/26/2024 Discontinued Start: 03-27-2024 End: 08-22-2024 take 1 tablet by mouth twice daily Famotidine 20 mg tablet Discontinued 20 mg PO TWICE A DAY May 26, 2024 12:00am August 22, 2024 9:20am ferrous sulfate 140 mg extended release oral tablet (7 sources) Start: 10-13-2024 End: 10-29-2024 take 1 tablet by mouth once daily ferrous sulfate (SLOW FE) 140 mg (45 mg iron) TbER Take 1 tablet by mouth once daily. With orange juice. 30 tablet 1 10/13/2024 10/29/2024 Discontinued ibuprofen 600 mg oral tablet (2 sources) Nonsteroidal Anti-inflammatory Drug Start: 10-24-2024 End: 04-08-2025 take 1 tablet by mouth every six hours as needed for pain Ibuprofen 600 mg Tablet Discontinued 600 mg PO EVERY 6 HOURS NEEDED as needed for Pain Score 1-10 0 0 October 24, 2024 1:00am April 08, 2025 2:23pm iv contrast (will be provided with radiology test) (4 sources) Start: 04-13-2025 End: 04-14-2025 inject 1 dose intravenously once iv contrast (will be provided with radiology test) MRI TSP Inject, intravenously, once for 1 dose. No IV access, insert saline lock prior to the beginning of sedation, infusion, injection of imaging exam. Discontinue saline lock post exam. If Pt. has a central line or IVAD, may access for administration according to line specific nursing protocol. Once exam is complete flush line and de-access according to line specific nursing protocol in the MR contrast administration guidelines link. 1 each 04/13/2025 04/14/2025 Start: 04-13-2025 End: 04-14-2025 iv contrast (will be provide d with radiology test) MRI LSP Inject, intravenously, once for 1 dose. No IV access, insert saline lock prior to the beginning of sedation, infusion, injection of imaging exam. Discontinue saline lock post exam. If Pt. has a central line or IVAD, may access for administration according to line specific nursing protocol. Once exam is complete flush line and de-access according to line specific nursing protocol in the MR contrast administration guidelines link. 1 each 04/13/2025 04/14/2025 Start: 04-13-2025 End: 04-14-2025 inject 1 dose intravenously once iv contrast (will be provided with radiology test) MRI TSP Inject, intravenously, once for 1 dose. No IV access, insert saline lock prior to the beginning of sedation, infusion, injection of imaging exam. Discontinue saline lock post exam. If Pt. has a central line or IVAD, may access for administration according to line specific nursing protocol. Once exam is complete flush line and de-access according to line specific nursing protocol in the MR contrast administration guidelines link. 1 each 04/13/2025 04/14/2025 Active Start: 04-13-2025 End: 04-14-2025 iv contrast (will be provide d with radiology test) MRI LSP Inject, intravenously, once for 1 dose. No IV access, insert saline lock prior to the beginning of sedation, infusion, injection of imaging exam. Discontinue saline lock post exam. If Pt. has a central line or IVAD, may access for administration according to line specific nursing protocol. Once exam is complete flush line and de-access according to line specific nursing protocol in the MR contrast administration guidelines link. 1 each 04/13/2025 04/14/2025 Active 2 ml metoclopramide 5 mg/ml prefilled syringe (1 source) Dopamine-2 Receptor Antagonist Start: 05-17-2024 End: 05-17-2024 5 mg, Intravenous, ONCE, 1 dose, On 05/17/24 at 1730 metroNIDAZOLE 500 mg oral tablet (2 sources) Nitroimidazole Antimicrobial Start: 08-22-2024 End: 10-10-2024 take 1 tablet by mouth twice daily Metronidazole 500 mg tablet Discontinued 500 mg PO TWICE A DAY 14 0 August 22, 2024 1:00am October 10, 2024 10:41pm nitrofurantoin, macrocrystals 25 mg / nitrofurantoin, monohydrate 75 mg oral capsule (5 sources) Nitrofuran Antibacterial Start: 05-26-2024 End: 08-22-2024 take 1 capsule by mouth every twelve hours Nitrofurantoin Monohyd/M-Cryst (Macrobid) 100 mg capsule Discontinued 100 mg PO Q12H 14 7 0 May 26, 2024 12:00am August 22, 2024 9:20am On Hold: pt states hasnt taken in a long time must administer with a meal/food Start: 03-04-2023 End: 03-09-2023 take 1 capsule by mouth twice daily nitrofurantoin monohydrate and macrocrystal (MACROBID) 100 mg capsule Take 1 capsule by mouth twice daily for 5 days. 10 capsule 0 03/04/2023 03/09/2023 Active Start: 11-29-2022 End: 12-04-2022 take 1 capsule by mouth twice daily at mealtime nitrofurantoin monohydrate and macrocrystal (MACROBID) 100 mg capsule Take 1 capsule by mouth twice daily with meals for 5 days. 10 capsule 0 11/29/2022 12/04/2022 Active Comment on above: Take 1 capsule by mo ut twice daily with meals for 5 days. Take 1 capsule by [facility] twice daily for 5 days. pantoprazole 40 mg delayed release oral tablet (20 sources) Proton Pump Inhibitor Start: End: take 1 tablet by mouth once daily Pantoprazole 20 mg tablet,delayed release (DR/EC) Discontinued 20 mg PO DAILY August 21, 2024 1:00am October 12, 2024 2:21am Start: 07-27-2024 End: 04-08-2025 take 1 tablet by mouth once daily Pantoprazole 40 mg tablet,delayed release (DR/EC) Discontinued 40 mg PO DAILY October 12, 2024 1:00am April 08, 2025 2:23pm Start: 04-30-2024 End: 07-27-2024 take 1 tablet by mouth once daily pantoprazole DR (PROTONIX) 20 mg tablet Take 1 tablet by mouth once daily. 90 tablet 06/30/2024 07/27/2024 Discontinued take 1 tablet by ashleigh once daily Pantoprazole [address] tablet DR Take 1 tablet by mouth daily. Active PNV/iron,carb/docusat/folic ac (PRENA-CAP ORAL) (20 sources) End: 10-29-2024 take 1 tablet by mouth once daily before mealtime PNV/iron,carb/docusat/folic ac (PRENA-CAP ORAL) Take 1 tablet by mouth once daily. 10/29/2024 Discontinued take 1 tablet by ashleigh once daily before mealtime PNV/iron,carb/docusat/folic ac (PRENA-CA P ORAL) Take 1 tablet by mouth once daily. Active take 1 tablet by ashleigh once daily before mealtime PNV/iron,carb/docusat/folic ac (PRENA-CA P ORAL) Take 1 tablet by mouth once daily. 0 Active progesterone 200 mg oral capsule (20 sources) Progesterone Start: 07-13-2024 End: 04-09-2025 Progesterone Micronized 200 mg capsule Discontinued 200 mg VAGINAL DAILY October 10, 2024 1:00am October 22, 2024 4:38pm 250 ml sodium chloride 9 mg/ml injection (1 source) Start: 05-17-2024 End: 05-17-2024 1,000 mL, Intravenous, ONCE, 1 dose, On 05/17/24 at 1730 Problems Active Problems Problem Classification Problem Date Documented Date Episodic/Chronic Abdominal pain (12 sources) Rebound tenderness; Translations: [Rebound abdominal tenderness, unspecified site] Onset: 04-13-2025 10-19-2024 Episodic Comment on above: Right mid quadrant Allergic reactions (2 sources) Eczema; Translations: [Dermatitis, unspecified] Onset: 04-14-2025 04-14-2025 Episodic Anxiety disorders (20 sources) Mixed anxiety and depressive disorder; Translations: [Anxiety disorder, unspecified] Onset: 08-25-2024 08-25-2024 Chronic Attention-deficit, conduct, and disruptive behavior disorders (20 sources) Attention deficit hyperactivity disorder; Translations: [Attention-deficit hyperactivity disorder, unspecified type] Onset: 08-28-2011 08-28-2011 Chronic Attention-deficit, conduct, and disruptive behavior disorders (1 source) Attention deficit hyperactivity disorder, combined type; Translations: [Attention-deficit hyperactivity disorder, combined type] 03-27-2024 Chronic Conditions associated with dizziness or vertigo (2 sources) Dizziness; Translations: [Dizziness and giddiness] 06-03-2024 Episodic Contraceptive and procreative management (1 source) Subcutaneous contraceptive implant present; Translations: [Encounter for surveillance of implantable subdermal contraceptive] 10-07-2023 Episodic Genitourinary symptoms and ill-defined conditions (7 sources) Increased frequency of urination; Translations: [Frequency of micturition] Episodic Immunizations and screening for infectious disease (1 source) Encounter for screening for infections with a predominantly sexual mode of transmission; Translations: [Screen for STD (sexually transmitted disease)] Onset: 04-29-2025 Episodic Inflammatory diseases of female pelvic organs (2 sources) Bacterial vaginosis; Translations: [Acute vaginitis] 08-22-2024 Episodic Influenza (1 source) Influenza due to Influenza A virus; Translations: [Influenza due to other identified influenza virus with other respiratory manifestations] 09-19-2023 Episodic Menstrual disorders (5 sources) Menstrual period late; Translations: [Irregular menstruation, unspecified] Onset: 01-12-2025 03-09-2024 Chronic Miscellaneous mental health disorders (2 sources) Chronic insomnia; Translations: [Psychophysiologic insomnia] Onset: 04-14-2025 04-14-2025 Chronic Mood disorders (1 source) Depressive disorder; Translations: [Depression, unspecified depression type] 04-14-2025 Chronic Mood disorders (1 source) Mood disorders; Translations: [Depression, unspecified depression type] Onset: 04-14-2025 Other complications of (19 sources) Vomiting of , unspecified; Translations: [Unspecified vomiting of , unspecified as to episode of care or not applicable] Onset: 03-27-2024 03-27-2024 Episodic Other complications of (20 sources) High risk ; Translations: [Supervision of high risk , unspecified, second trimester] Onset: 03-27-2024 05-22-2024 Episodic Other complications of (2 sources) Pyelonephritis in ; Translations: [Infections of kidney in , third trimester] 10-13-2024 Episodic Other complications of (2 sources) Abdominal pain in ; Translations: [Other specified related conditions, first trimester] 04-08-2025 Episodic Other complications of (2 sources) Reduced movement; Translations: [Decreased movements, unspecified trimester, not applicable or unspecified] 08-30-2024 Episodic Other complications of (1 source) Pain in female pelvis; Translations: [Other specified related conditions, unspecified trimester] 04-08-2025 Episodic Other complications of (1 source) Uncertain viability of ; Translations: [ with inconclusive viability, not applicable or unspecified] 04-16-2025 Episodic Other complications of (3 sources) Finding of pattern of ; Translations: [Supervision of other high risk pregnancies, unspecified trimester] Onset: 04-29-2025 04-29-2025 Episodic Other complications of (2 sources) with inconclusive viability, not applicable or unspecified; Translations: [Encounter to determine viability of , single or unspecified fetus (HCC)] Onset: 04-16-2025 Episodic Other complications of (2 sources) Mild hyperemesis gravidarum; Translations: [Hyperemesis gravidarum (HCC)] Onset: 05-22-2024 Episodic Other complications of (1 source) Other specified related conditions, unspecified trimester; Translations: [Pelvic pain in (HCC)] Onset: 04-14-2025 Episodic Other connective tissue disease (1 source) Pain of bilateral hands; Translations: [Pain in right hand] 06-21-2023 Episodic Other connective tissue disease (1 source) Pain of right thigh; Translations: [Pain in right thigh] 10-29-2024 Episodic Other connective tissue disease (2 sources) Musculoskeletal pain; Translations: [Myalgia, other site] 10-19-2024 Episodic Other nervous system disorders (1 source) Other chronic pain; Translations: [Chronic midline thoracic back pain] Onset: 03-03-2025 Chronic Other screening for suspected conditions (not mental disorders or infectious disease) (9 sources) Patient encounter status; Translations: [Encounter for screening for nuchal translucency] Onset: 05-13-2024 05-13-2024 Episodic Other skin disorders (2 sources) Eruption; Translations: [Rash and other nonspecific skin eruption] 04-17-2024 Episodic Other upper respiratory infections (2 sources) Sore throat symptom; Translations: [Acute pharyngitis, unspecified] 09-19-2023 Episodic Residual codes; unclassified (1 source) Initial insomnia; Translations: [Other insomnia] 06-21-2023 Chronic Residual codes; unclassified (1 source) Viral syndrome; Translations: [Other general symptoms and signs] 09-19-2023 Episodic Residual codes; unclassified (1 source) Procedure not done; Translations: [Procedure and treatment not carried out, unspecified reason] 01-26-2024 Episodic Residual codes; unclassified (1 source) Gestation period, 5 weeks; Translations: [Less than 8 weeks gestation of ] 03-27-2024 Episodic Residual codes; unclassified (1 source) Gestation period, 12 weeks; Translations: [12 weeks gestation of ] 05-08-2024 Episodic Residual codes; unclassified (2 sources) Gestation period, 13 weeks; Translations: [13 weeks gestation of ] 05-13-2024 Episodic Residual codes; unclassified (1 source) Gestation period, 14 weeks; Translations: [14 weeks gestation of ] 05-22-2024 Episodic Residual codes; unclassified (1 source) Gestation period, 16 weeks; Translations: [16 weeks gestation of ] 06-05-2024 Episodic Residual codes; unclassified (2 sources) Gestation period, 20 weeks; Translations: [20 weeks gestation of ] 06-30-2024 Episodic Residual codes; unclassified (2 sources) Gestation period, 22 weeks; Translations: [22 weeks gestation of ] 07-13-2024 Episodic Residual codes; unclassified (3 sources) Gestation period, 24 weeks; Translations: [24 weeks gestation of ] 07-27-2024 Episodic Residual codes; unclassified (3 sources) Gestation period, 28 weeks; Translations: [28 weeks gestation of ] 08-24-2024 Episodic Residual codes; unclassified (9 sources) Gestation period, 30 weeks; Translations: [30 weeks gestation of ] Onset: 09-29-2024 09-08-2024 Episodic Residual codes; unclassified (1 source) Gestation period, 31 weeks; Translations: [31 weeks gestation of ] 09-15-2024 Episodic Residual codes; unclassified (1 source) Gestation period, 32 weeks; Translations: [32 weeks gestation of ] 09-23-2024 Episodic Residual codes; unclassified (1 source) Gestation period, 33 weeks; Translations: [33 weeks gestation of ] 09-30-2024 Episodic Residual codes; unclassified (3 sources) Gestation period, 35 weeks; Translations: [35 weeks gestation of ] 10-15-2024 Episodic Comment on above: HD#3 Residual codes; unclassified (3 sources) Gestation period, 36 weeks; Translations: [36 weeks gestation of ] 10-22-2024 Episodic Residual codes; unclassified (2 sources) Gestation period, 26 weeks; Translations: [26 weeks gestation of ] 08-22-2024 Episodic Residual codes; unclassified (2 sources) Gestation period, 7 weeks; Translations: [Less than 8 weeks gestation of ] 04-29-2025 Episodic Residual codes; unclassified (2 sources) Less than 8 weeks gestation of ; Translations: [7 weeks gestation of ([facility])] Onset: 05-13-2024 Episodic Spondylosis; intervertebral disc disorders; other back problems (9 sources) Chronic thoracic back pain; Translations: [Pain in thoracic spine] Onset: 03-03-2025 02-26-2025 Episodic Unclassified (20 sources) [facility] Education - COMMON Onset: 03-27-2024 03-27-2024 Unclassified (20 sources) Education - [place] Onset: 03-27-2024 03-27-2024 Unclassified (1 source) Well adult 02-24-2025 Unclassified (1 source) Other specified diseases and conditions complicating ; Translations: [Other specified diseases and conditions complicating ] Onset: 10-19-2024 Urinary tract infections (4 sources) Urinary tract infectious disease; Translations: [Urinary tract infection, site not specified] 06-03-2024 Episodic Past or Other Problems Problem Classification Problem Date Documented Da te Episodic/Chronic Early or threatened labor (20 sources) False labor before 37 completed weeks of gestation; Translations: [False labor before 37 completed weeks of gestation, unspecified trimester] Onset: 08-24-2024 Resolved: 10-29-2024 08-24-2024 Episodic Miscellaneous mental health disorders (20 sources) mood disturbance; Translations: [Mental disorders of mother, condition or complication] Onset: 12-30-2024 11-26-2024 Episodic Nausea and vomiting (3 sources) Nausea and vomiting; Translations: [Nausea with vomiting, unspecified] Onset: 05-28-2024 09-20-2024 Episodic Nonmalignant breast conditions (3 sources) Inflammatory disorder of breast; Translations: [Mastitis without abscess] Onset: 01-12-2025 11-12-2024 Episodic Other complications of (20 sources) Heartburn; Translations: [Other specified related conditions, first trimester] Onset: 03-27-2024 03-27-2024 Episodic Other complications of (20 sources) Anxiety in ; Translations: [Other mental disorders complicating , unspecified trimester] Onset: 03-27-2024 03-27-2024 Episodic Other complications of (20 sources) Hyperemesis gravidarum; Translations: [Mild hyperemesis gravidarum] Onset: 03-27-2024 Resolved: 12-30-2024 05-08-2024 Episodic Other complications of (20 sources) Depressive disorder; Translations: [Other mental disorders complicating , second trimester] Onset: 05-22-2024 Resolved: 12-30-2024 05-22-2024 Episodic Other complications of (20 sources) Short cervical length in ; Translations: [Cervical shortening, second trimester] Onset: 07-13-2024 Resolved: 04-29-2025 06-30-2024 Episodic Other complications of (20 sources) Other mental disorders complicating the puerperium; Translations: [Mental disorders of mother, condition or complication] Onset: 03-27-2024 Resolved: 04-29-2025 10-29-2024 Episodic Other complications of (1 source) Supervision of high risk , unspecified, third trimester; Translations: [Supervision of high risk in third trimester] Onset: 09-29-2024 Episodic Other complications of (1 source) Supervision of high risk , unspecified, second trimester; Translations: [Supervision of high risk in second trimester] Onset: 07-27-2024 Episodic Other complications of (2 sources) Other specified related conditions, second trimester; Translations: [Heartburn during in second trimester] Onset: 05-08-2024 Episodic Other complications of (1 source) Cervical shortening, unspecified trimester; Translations: [Cervix, short (affecting )] Onset: 07-13-2024 Episodic Other complications of (1 source) Cervical shortening, second trimester; Translations: [Cervical shortening, second trimester] Onset: 07-13-2024 Episodic Other complications of (1 source) Decreased movements, second trimester, not applicable or unspecified; Translations: [Decreased movements, second trimester, not applicable or unspecified] Onset: 09-04-2024 Episodic Other gastrointestinal disorders (1 source) Heartburn; Translations: [Heartburn during in second trimester] Onset: 05-08-2024 Episodic Other lower respiratory disease (20 sources) Rib pain; Translations: [Pleurodynia] Onset: 09-29-2024 09-08-2024 Episodic Other lower respiratory disease (1 source) Pleurodynia; Translations: [Rib pain] Onset: 09-29-2024 Episodic Other and delivery including normal (20 sources) Normal ; Translations: [Encounter for supervision of normal first , first trimester] Onset: 03-27-2024 Resolved: 09-08-2024 03-27-2024 Episodic Residual codes; unclassified (20 sources) FH: Deafness; Translations: [Family history of deafness and hearing loss] Onset: 03-27-2024 03-27-2024 Episodic Residual codes; unclassified (1 source) 30 weeks gestation of ; Translations: [30 weeks gestation of ] Onset: 09-29-2024 Episodic Residual codes; unclassified (1 source) 24 weeks gestation of ; Translations: [24 weeks gestation of ] Onset: 08-24-2024 Episodic Residual codes; unclassified (1 source) 22 weeks gestation of ; Translations: [22 weeks gestation of ] Onset: 07-13-2024 Episodic Residual codes; unclassified (1 source) 20 weeks gestation of ; Translations: [20 weeks gestation of ] Onset: 06-30-2024 Episodic Residual codes; unclassified (1 source) 13 weeks gestation of ; Translations: [13 weeks gestation of ] Onset: 05-13-2024 Episodic Residual codes; unclassified (1 source) 12 weeks gestation of ; Translations: [12 weeks gestation of ] Onset: 05-08-2024 Episodic Short gestation; low weight; and growth retardation (20 sources) Prematurity of infant; Translations: [ , unspecified weeks of gestation] Onset: 08-25-2024 08-25-2024 Episodic Unclassified (2 sources) mood disorder (HCC) 02-26-2025 Results Test Name Value Interpretation Reference Range Facility Urine Cultureon 05-02-2025 [facility] Mixed Gram Positive Organisms [place] Count 25,000-50,000 [facility] Mixed contaminants. Submit a new specimen if indicated. Normal [facility] Comment on above: Performed By: #### M 100.2200 #### [facility] [address] [place], [address] [facility] ZAIN ROSE ([id number]) 5 F Date Time Provider Department 04/30/25 NURSE CLEATER [facility] [place] [facility] During your visit today, we recorded the following information about you: Amairani Judd RN 04/30/2025 8:11 AM Signed 1st risk assessment form submitted 04/30/25 Amairani Judd RN Allergies As of Date: 04/30/2025 (No Known Allergies) Date Reviewed: 04/29/2025 Reviewed by: Kate Guo LPN - Fully Assessed Reason for Visit: PRAF [4193] Prescriptions as of 04/30/2025 - aspirin, enteric coated (ECOTRIN LOW STRENGTH) 81 mg EC tablet Take 1 tablet by mouth once daily. - ondansetron (ZOFRAN) 4 mg tablet Take 1 tablet by mouth every 8 hours as needed for nausea/vomiting. - promethazine (PHENERGAN) 12.5 mg suppository 1 suppository by RECTAL route every 6 hours as needed. - vits no.138/folic/dha (ALIVE ORAL) Take by mouth. - Cholecalciferol, Vitamin D3, (VITAMIN D) 25 mcg (1,000 unit) cap Take 1 capsule by mouth once daily. - hydrocortisone 1 % ointment Apply to affected area two times a day for 21 days. Apply twice daily for 2 weeks then daily for 1 week - sertraline (ZOLOFT) 100 mg tablet Take 1 tablet by mouth once daily. Problem List As Of Date 04/30/2025 Noted Resolved ADHD (attention deficit hyperactivity disorder)*08/28/2011 with uncertain dates in first trimest*03/27/2024 09/08/2024 Family history of deafness [Z82.2] 03/27/2024 Hyperemesis gravidarum (HCC) [O21.0] 03/27/2024 12/30/2024 anxiety (HCC) [O99.345, F41.8] 03/27/2024 04/29/2025 Depression affecting in second trimes*05/22/2024 12/30/2024 Cervix, short (affecting ) (HCC) [O26.*07/13/2024 04/29/2025 contractions [O47.00] 08/24/2024 10/29/2024 Anxiety and depression [F41.9, F32.A] 08/25/2024 Prematurity of fetus [P07.30] 08/25/2024 Rib pain [R07.81] 09/29/2024 mood disorder (HCC) [O90.6] 12/30/2024 Short interval between pregnancies affecting pr*04/29/2025 Encounter for supervision of normal i*04/29/2025 Nausea and vomiting during (HCC) [O21*04/29/2025 Encounter Status:Closed by AMAIRANI JUDD on 04/30/25 Normal [facility] Absolute lymphocyte countOrd ered By: Nate Bowling on 04-29-2025 Lymphocytes Auto (Unsp spec) [#/Vol] 1.23 10*3/uL 0.83-4.51 [facility] Absolute neutrophil countOrd ered By: Nate Bowling on 04-29-2025 Neutrophils (Bld) [#/Vol] 12.6 10*3/uL High 2.0-7.7 [facility] Anion gap in Serum or Plasma Ordered By: Nate Bowling on 04-29-2025 Anion gap [Moles/Vol] 14 mmol/L 5-15 [facility] Automated lymphocyte count a s percentage of total leukocytesOrdered By: Nate Bowling on 04-29-2025 Lymphocytes/100 WBC Auto (Unsp spec) 8.4 % Low 19-41 [facility] BUN/creatinine ratioOrdered By: Nate Bowling on 04-29-2025 Urea nitrogen/Creatinine [Mass ratio] 9.8 mg/mg Low 10-20 [facility] Bacteria Ur Culton Bacteria identified Cx Nom (U) ORGANISM ID: 1 50,000-<100,000 CFU/ml Normal urogenital yeny Normal [facility] Comment on above: Performed By: #### 6 30-4 ####[facility] [id number] [address] [place] Basic Metabolic Profile (BMP )on 04-29-2025 BUN/CRE 9.8 RATIO Low 10-20 [facility] Comment on above: Performed By: #### M 100.2200 #### [facility] [address] [place], [address] Calcium [Mass/Vol] 9.7 mg/dL Normal 7.6-11.0 [facility] Comment on above: Performed By: #### M 100.2200 #### [facility] [address] [place], [address] Chloride [Moles/Vol] 102 mmol/L Normal 98-108 [facility] Comment on above: Performed By: #### M 100.2200 #### [facility] [address] [place], [address] CO2 [Moles/Vol] 20.2 mmol/L Low 21.0-32.0 [facility] Comment on above: Performed By: #### M 100.2200 #### [facility] [address] [place], [address] Creatinine [Mass/Vol] 0.54 mg/dL Low 0.70-1.20 [facility] Comment on above: Performed By: #### M 100.2200 #### [facility] [address] [place], [address] ECRCL 169.93 ml/min Normal 50-250 [facility] Comment on above: Performed By: #### M 100.2200 #### [facility] [address] [place], [address] GAP 14 Normal 5-15 [facility] Comment on above: Performed By: #### M 100.2200 #### [facility] [address] [place], [address] GFR/1.73 sq M.predicted among non-blacks MDRD (S/P/Bld) [Vol rate/Area] 135 mL/min/{1.73_m2} Normal >60 [facility] Comment on above: Result Comment: mL/m in/1.73m2 CKD-EPI Creatinine Equation (2020) Performed By: #### M 100.2200 #### [facility] [address] [place], [address] Glucose [Mass/Vol] 88 mg/dL Normal 70-99 [facility] Comment on above: Performed By: #### M 100.2200 #### [facility] [address] [place], [address] Potassium [Moles/Vol] 3.7 mmol/L Normal 3.3-5.1 [facility] Comment on above: Performed By: #### M 100.2200 #### [facility] [address] [place], [address] Sodium [Moles/Vol] 136 mmol/L Normal 133-145 [facility] Comment on above: Performed By: #### M 100.2200 #### [facility] [address] [place], [address] Urea nitrogen [Mass/Vol] 5 mg/dL Normal 4-19 [facility] Comment on above: Performed By: #### M 100.2200 #### [facility] [address] [place], [address] Basophil percentageOrdered B y: Nate Bowling on 04-29-2025 Basophils/100 WBC (Bld) 0.3 % 0-1 [facility] Bilirubin Test strip Ql (U)O rdered By: Nate Bowling on 04-29-2025 Bilirubin Ql (U) Negative Negative [facility] C. trachomatis+N. gonorrhoea e DNA VIRIDIANA+probe Ql (Unsp spec)on 04-29-2025 C. trachomatis rRNA VIRIDIANA+probe Ql (Unsp spec) Not detected Normal Not detected [facility] Comment on above: Order Comment: Speci men Type: SWABOrdering Facility: [facility] Address: [address] [place] [address] Performed By: #### T RVAMP, 26639-9 ####[facility] [id number] [place] [id number] [place] N. gonorrhoeae rRNA VIRIDIANA+probe Ql (Unsp spec) Not detected Normal Not detected [facility] Comment on above: Order Comment: Speci men Type: SWABOrdering Facility: [facility] Address: [address] [place] [address] Performed By: #### T RVAMP, 78485-1 ####[facility] [id number] [place] [id number] [place] CBC W/Diff, Automatedon 04-19 Absolute Lymph 1.23 X10 3/uL Normal 0.83-4.51 [facility] Comment on above: Performed By: #### M 100.2200 #### [facility] [address] [place], [address] Absolute Neut 12.6 X10 3/uL High 2.0-7.7 [facility] Comment on above: Performed By: #### M 100.2200 #### [facility] [address] [place], [address] Basophils/100 WBC (Bld) 0.3 % Normal 0-1 [facility] Comment on above: Performed By: #### M 100.2200 #### [facility] [address] [place], [address] Eosinophils/100 WBC (Bld) 0.1 % Normal 0-5 [facility] Comment on above: Performed By: #### M 100.2200 #### [facility] [address] [place], [address] Erythrocyte distribution width (RBC) [Ratio] 12.6 % Normal 11.6-14.6 [facility] Comment on above: Performed By: #### M 100.2200 #### [facility] [address] [place], [address] Hematocrit (Bld) [Volume fraction] 44.4 % Normal 37-47 [facility] Comment on above: Performed By: #### M 100.2200 #### [facility] [address] [place], [address] Hemoglobin (Bld) [Mass/Vol] 14.9 g/dL Normal 12.0-15.0 [facility] Comment on above: Performed By: #### M 100.2200 #### [facility] [address] [place], [address] IG% 0.500 Normal 0.0-0.9 [facility] Comment on above: Result Comment: IG% - Immature Granulocytes (promyelocytes, myelocytes and metamyelocytes) > 1% indicates that a LEFT SHIFT is Present. Performed By: #### M 100.2200 #### [facility] [address] [place], [address] Lymphocytes/100 WBC (Bld) 8.4 % Low 19-41 [facility] Comment on above: Performed By: #### M 100.2200 #### [facility] [address] [facility] [place], [address] MCH (RBC) [Entitic mass] 28.5 pg Normal 27.0-32.0 [facility] Comment on above: Performed By: #### M 100.2200 #### [facility] [address] [place], [address] MCHC (RBC) [Mass/Vol] 33.6 g/dL Normal 32-36 [facility] Comment on above: Performed By: #### M 100.2200 #### [facility] [address] [place], [address] MCV (RBC) [Entitic vol] 84.9 fL Normal 81-99 [facility] Comment on above: Performed By: #### M 100.2200 #### [facility] [address] [place], [address] Monocytes/100 WBC (Bld) 4.6 % Normal 0-10 [facility] Comment on above: Performed By: #### M 100.2199 #### [facility] [address] [place], [address] Neutrophils/100 WBC (Bld) 86.1 % High 47-70 [facility] Comment on above: Performed By: #### M 100.2199 #### [facility] [address] [place], [address] Nucleated RBC (Bld) [#/Vol] 0 10*3/uL Normal 0-5 [facility] Comment on above: Performed By: #### M 100.2199 #### [facility] [address] [place], [address] Platelet mean volume (Bld) [Entitic vol] 11.4 fL Normal 6.2-12.0 [facility] Comment on above: Performed By: #### M 100.2199 #### [facility] [address] [place], [address] Platelets (Bld) [#/Vol] 283 10*3/uL Normal 150-450 [facility] Comment on above: Performed By: #### M 100.2199 #### [facility] [address] [place], [address] RBC (Bld) [#/Vol] 5.23 10*6/uL Normal 4.2-5.4 [facility] Comment on above: Performed By: #### M 100.2199 #### [facility] [address] [place], [address] RDW SD 38.5 fl Normal 35.1-43.9 [facility] Comment on above: Performed By: #### M 100.2199 #### [facility] [address] [place], [address] WBC (Bld) [#/Vol] 14.6 10*3/uL High 4.4-11.0 [facility] Comment on above: Performed By: #### M 100.2200 #### [facility] [address] [place], [address] Carbon dioxide, total [Moles /volume] in Central venous bloodOrdered By: Nate Bowling on 04-29-2025 CO2 [Moles/Vol] 20.2 mmol/L Low 21.0-32.0 [facility] Chloride assayOrdered By: Connor Bowling on 04-29-2025 Chloride [Moles/Vol] 102 mmol/L 98-108 [facility] Emergency Department Summary on 04-29-2025 Emergency Department Summary [facility] Medical Records Department [address] [facility] [place] [address] Emergency Department Summary 04/29/25 MR#: [id number] Acct: [id number] Name: ZAIN ROSE GALINDO Rep #: [id number] : 2005 20 From: Nate Bowling DO PCP: Dr. Halie Butts, DO Status:[facility] ER Location: ED HPI History of Present Illness Chief Complaint: Nausea/Vomiting Narrative Narrative: Chief complaint and HPI: 20-year-old female who is G2, P1 and 7 weeks presents for evaluation of nausea and vomiting. 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 She follows with [facility] [employer]PER[employer]. She states she was at their office today. Patient had hyperemesis gravidarum with her first . She has home Zofran. She states the nausea and vomiting worsened today with little p.o. intake. [employer] OPERATOR told her to come to the emergency department for fluids. She denies any fever, chills, shortness of breath, chest pain, abdominal pain, vaginal bleeding, dysuria. Review of systems: See HPI Medications: As listed on the chart Allergies: As listed on the chart PFSH: Per chart Vital signs: As listed on the chart. Reviewed. Physical exam: Gen: A O x3, NAD Head: Normocephalic, atraumatic Eyes: No sclera icterus, conjunctiva clear ENT: Mildly dry mucous membranes Neck: Trachea midline, No JVD CV: RRR, no murmurs, no peripheral edema Resp: Lungs CTA BL, no w/r/c GI: Abd soft, non-distended, non-tender, no r/r/g Musc: Full ROM, no deformity Skin: Warm, dry Neuro: Alert, oriented, grossly intact, sensation intact Psych: Cooperative, appropriate mood and affect PFS PFS Medical History ADHD Home Medications ???Medication ???Instructions ???Recorded ???Last Taken ???Type vit no.95-ferrous 1 tab PO DAILY 08/24/24 04/07/25 H istory fumarate 28 mg-folic acid 800 mcg tablet () ondansetron HCl 4 mg tablet 4 mg PO Q8H PRN PRN nausea/vomitin g 04/08/25 04/07/25 History sertraline 100 mg tablet 100 mg PO DAILY 04/08/25 04/07/25 History Allergy/AdvReac Type Severity Reaction Status Date / Time No Known Allergies Allergy Verified 04/29/25 18:01 Social History Smoking Status: Never smoker EXAM Physical Exam Const Vital Signs: 04/29/25 18:01 04/29/25 20:01 Temperature 98.3 F Temperature Source Temporal Pulse Rate 97 75 Respiratory Rate 16 24 H Blood Pressure 116/83 H 106/76 Blood Pressure Mean 94 86 Pulse Ox 99 100 Oxygen Delivery Method Room Air Room Air MDM MDM MDM Narrative Medical decision making narrative: 20-year-old female who is G2, P1 and 7 weeks presents for evaluation of nausea and vomiting. 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 She follows with [facility] DISPOSAL PLANT OPERATOR. Patient had hyperemesis gravidarum with her first . She has home Zofran. She states the nausea and vomiting worsened today with little p.o. intake. DISPOSAL PLANT OPERATOR told her to come to the emergency department for fluids. She denies any fever, chills, shortness of breath, chest pain, abdominal pain, vaginal bleeding, dysuria. Differential diagnosis includes but is not limited to nausea vomiting and early , dehydration, electrolyte abnormality, UTI. NS bolus and Zofran ordered. Basic labs ordered with UA. Patient not having any abdominal pain or vaginal bleeding therefore I do not think any ultrasound is needed at this time. CBC with leukocytosis of 14.6. This is not unusual in . No anemia. BMP relatively unremarkable without significant electrolyte abnormality or KUNAL. UA positive for ketones which is consistent with nausea and vomiting. No UTI but she does have +1 bacteria. Will treat with Keflex for asymptomatic bacteriuria in to prevent UTI. Patient was updated of all results for and understand the plan. Symptoms have improved with medications here. Able to tolerate p.o. intake. Patient stable to discharge home. Does not need prescription for antinausea medicine as she states she has it at home. Impression: 1. Nausea and vomiting in first trimester 2. Asymptomatic bacteriuria in Lab Data Labs: Laboratory Results - last 24 hr 04/29/25 04/29/25 18:12 19:29 WBC 14.6 H RBC 5.23 Hgb 14.9 Hct 44.4 MCV 84.9 MCH 28.5 MCHC 33.6 RDW Std Deviation 38.5 RDW Coeff of Derek 12.6 Plt Count 283 MPV 11.4 Immature Gran % (Auto) 0.500 Neut % (Auto) 86.1 H Lymph % (Auto) 8.4 L Meade % (Auto) 4.6 Eos % (Auto) 0.1 Baso % (Auto) 0.3 Absolute Neuts (auto) 12.6 H Absolute Lymphs (auto) 1.23 Nucleated RBC % 0 Sodium 136 (more content not included)... Normal [facility] Eosinophil percentageOrdered By: Nate Bowling on 04-29-2025 Eosinophils/100 WBC (Bld) 0.1 % 0-5 [facility] Erythrocyte distribution wid th ratioOrdered By: Nate Bowling on 04-29-2025 Erythrocyte distribution width (RBC) [Ratio] 12.6 % 11.6-14.6 [facility] Erythrocyte distribution wid th standard deviationOrdered By: Nate Patel on 04-29-2025 Erythrocyte distribution width (RBC) [Ratio] 38.5 fl 35.1-43.9 [facility] Glomerular filtration rate ( GFR) estimation/1.73 sq m using serum, plasma, or whole bOrdered By: Nate Bowling on 04-29-2025 GFR/1.73 sq M.predicted among non-blacks MDRD (S/P/Bld) [Vol rate/Area] 135 mL/min/{1.73_m2} >60 [facility] Comment on above: mL/min/1.73m2 CKD-EP I Creatinine Equation (2020) Hematocrit Auto (Bld) [Volum e fraction]Ordered By: Nate Bowling on 04-29-2025 Hematocrit (Bld) [Volume fraction] 44.4 % 37-47 [facility] Hemoglobin measurementOrdere d By: Nate Bowling on 04-29-2025 Hemoglobin (Bld) [Mass/Vol] 14.9 g/dL 12.0-15.0 [facility] Immature granulocytes/100 WB C Auto (Bld)Ordered By: Nateinocencio Bowling on 04-29-2025 Immature granulocytes/100 WBC (Bld) 0.500 % 0.0-0.9 [facility] Comment on above: IG% - Immature Granu locytes (promyelocytes, myelocytes and metamyelocytes) > 1% indicates that a LEFT SHIFT is Present. Ketones Test strip Ql (U)Ord ered By: Nate Bowling on 04-29-2025 Ketones Ql (U) 150 mg/dl Abnormal Negative [facility] Comment on above: CRITICAL VALUE ASCENCIO D TO TUNDE AGUILAR04/29/252019 Mohini Harris.RESULTS READ BACK BY SAME. MCV (mean corpuscular volume ) determinationOrdered By: Nate Bowling on 04-29-2025 MCV (RBC) [Entitic vol] 84.9 fL 81-99 [facility] Mean corpuscular hemoglobin (MCH) determinationOrdered By: Nate Bowling on 04-29-2025 MCH (RBC) [Entitic mass] 28.5 pg 27.0-32.0 [facility] Mean corpuscular hemoglobin concentration (MCHC) determinationOrdered By: Nate Bowling on 04-29-2025 MCHC (RBC) [Mass/Vol] 33.6 g/dL 32-36 [facility] Mean platelet volume determi nationOrdered By: Nate Bowling on 04-29-2025 Platelet mean volume (Bld) [Entitic vol] 11.4 fL 6.2-12.0 [facility] Microscopic analysis of urin e for red blood cells (RBC)Ordered By: Nate Bowling on 04-29-2025 Microscopic analysis of urine for red blood cells (RBC) 0-5 SEEN /hpf 0-5 [facility] Monocyte percentageOrdered B y: Nate Bowling on 04-29-2025 Monocytes/100 WBC (Bld) 4.6 % 0-10 [facility] Mucus LM Ql (Urine sed)Order ed By: Nate Bowling on 04-29-2025 Mucus Ql (Urine sed) 0 SEEN /hpf [facility] Neutrophil percentageOrdered By: Newman Tawnya on 04-29-2025 Neutrophils/100 WBC (Bld) 86.1 % High 47-70 [facility] Nitrite Test strip Ql (U)Ord ered By: Nate Bowling on 04-29-2025 Nitrite Ql (U) Negative Negative [facility] Nucleated red blood cell per centageOrdered By: Nate Bowling on 04-29-2025 Nucleated RBC/100 WBC (Bld) [Ratio] 0 % 0-5 [facility] [place] JAILER ULTRASOUNDon 04-29-20 25 Indication Viability. Confirmation of intrauterine . Confirmation of cardiac activity. Estimation of gestational age Impression cardiac activity is visualized, CRL indicates discrepancy from clinical dates, BOGDAN 12/15/25 based on today's ultrasound Recommendations Follow up for 1st Trimester Anatomy with Nuchal Translucency as clinically indicated if desired. Method Transvaginal ultrasound examination. View: Adequate visualization Menezes . Number of embryos: 1 Dating LMP on: 02/13/2025 GA by LMP 10 w + 5 d BOGDAN by LMP: 11/20/2025 Ultrasound examination on: 04/29/2025 GA by U/S based upon: CRL GA by U/S 7 w + 1 d BOGDAN by U/S: 12/15/2025 Assigned: based on ultrasound (CRL), selected on 04/29/2025 Assigned GA 7 w + 1 d Assigned BOGDAN: 12/15/2025 Biometry Standard FHR 143 bpm CRL 10.5 mm 7w 1d 90% [place] Assessment Gestational sac: visualized Location: intrauterine Yolk sac: visualized Embryo: visualized CRL 10.5 mm 7w 1d 90% [place] Cardiac activity: present FHR 143 bpm General Evaluation Cardiac activity present. FHR 143 bpm Performed By: Ene King CNP Read By: Ene King CNP MATERNAL MEDICINE [facility] Radiology Study observation (narrative) [facility] Platelet countOrdered By: Connor Bowling on 04-29-2025 Platelets (Bld) [#/Vol] 283 10*3/uL 150-450 [facility] Potassium measurement (mass/ volume)Ordered By: Nate Bowling on 04-29-2025 Potassium (Unsp spec) [Mass/Vol] 3.7 mmol/L 3.3-5.1 [facility] Protein Test strip Ql (U)Ord ered By: Nate Bowling on 04-29-2025 Protein Ql (U) 30 mg/dl High Negative [facility] RBC Auto (Bld) [#/Vol]Ordere d By: Nate Bowlnig on 04-29-2025 RBC (Bld) [#/Vol] 5.23 10*6/uL 4.2-5.4 [facility] Serum creatinine measurement (mass/volume)Ordered By: Nate Bowling on 04-29-2025 Creatinine [Mass/Vol] 0.54 mg/dL Low 0.70-1.20 [facility] Serum glucose measurement (m ass/volume)Ordered By: Nate Bowling on 04-29-2025 Glucose [Mass/Vol] 88 mg/dL 70-99 [facility] Serum or plasma calcium chirag urement (mass/volume)Ordered By: Nate Patel on 04-29-2025 Calcium [Mass/Vol] 9.7 mg/dL 7.6-11.0 [facility] Serum or plasma urea nitroge n measurement (mass/volume)Ordered By: Nate Bowling on 04-29-2025 Urea nitrogen [Mass/Vol] 5 mg/dL 4-19 [facility] Sodium levelOrdered By: Kavin Bowling on 04-29-2025 Sodium [Moles/Vol] 136 mmol/L 133-145 [facility] Squamous epithelial cells de tection in urine sediment by light microscopyOrdered By: Nate Bowling on 04-29-2025 Epithelial cells.squamous LM Ql (Urine sed) 5-10 SEEN /hpf 5-10 [facility] TRICHOMONAS VAGINALIS NAATon 04-29-2025 T. vaginalis DNA VIRIDIANA+probe Ql (Unsp spec) Not detected Normal Not detected [facility] Comment on above: Order Comment: Speci men Type: SWABOrdering Facility: [facility] Address: [address] [place] [address] Performed By: #### T RVAMP, 19505-7 ####[facility] LABCLIA [id number] [place] [address] [place] Urinalysis, Completeon 04-29 BACTERIA 1+ /hpf Normal None Seen [facility] Comment on above: Order Comment: CLEAN CATCH Performed By: #### L 400.0001 #### [facility] [address] [place], [place], [id number] (791) RBC 0-5 SEEN Normal 0-5 [facility] Comment on above: Order Comment: CLEAN CATCH Performed By: #### L 400.0001 #### [facility] [address] [place], [address] WBC 0-5 SEEN Normal 0-5 [facility] Comment on above: Order Comment: CLEAN CATCH Performed By: #### L 400.0001 #### [facility] [address] [place], [address] EPI,SQUAMOUS 5-10 SEEN Normal 5-10 [facility] Comment on above: Order Comment: CLEAN CATCH Performed By: #### L 400.0001 #### [facility] [address] [place], [address] Mucus Ql (Urine sed) 0 SEEN Normal [facility] Comment on above: Order Comment: CLEAN CATCH Performed By: #### L 400.0001 #### [facility] [address] [place], [address] Urine clarityOrdered By: Vladimir Bowling on 04-29-2025 Clarity (U) Sl. Cloudy Clear [facility] Urine color determinationOrd ered By: Nate Bowling on 04-29-2025 Color (U) Yellow Yellow [facility] Urine glucose detectionOrder ed By: Nate Bowling on 04-29-2025 Glucose Ql (U) Normal mg/dl Normal [facility] Urine leukocyte esterase det ection by dipstickOrdered By: Nate Bowling on 04-29-2025 Leukocyte esterase Test strip Ql (U) Negative Negative [facility] Urine pHOrdered By: Nate Harris on 04-29-2025 pH (U) 6.0 [pH] 5.0 - 8.0 [facility] Urine sediment bacteria coun t by microscopy (number/high power field)Ordered By: Nate Bowling on 04-29-2025 Bacteria LM.HPF (Urine sed) [#/Area] 1 /[HPF] None Seen [facility] Urine specific gravity measu rementOrdered By: Nate Bowling on 04-29-2025 Specific gravity (U) [Rel density] 1.020 1.002-1.030 [facility] Urine urobilinogen measureme ntOrdered By: Nate Bowling on 04-29-2025 Urobilinogen Ql (U) Normal mg/dl Normal [facility] White blood cell (WBC) count Ordered By: Nate Bowling on 04-29-2025 WBC (Bld) [#/Vol] 14.6 10*3/uL High 4.4-11.0 [facility] White blood cell countOrdere d By: Nate Bowling on 04-29-2025 White blood cell count 0-5 SEEN /hpf 0-5 [facility] CNPNon 04-22-2025 CNPN Telephone (OBGYWM) ZAIN ROSE ([id number]) 5 F Date Time Provider Department 04/22/25 SETH CASTRO OBNICK During your visit today, we recorded the following information about you: Matt Lewis RN 04/22/2025 1:04 PM Signed Patient calling requesting a refill on her Zofran Rx. Patient is currently using Phenergan suppositories, but states she can only use them at night d/t work. Patient has a New OB appointment scheduled for 04/29. Please order if appropriate, will need to call patient back. BOZENA Valdez Courtney, APRN.CNM 04/22/2025 1:06 PM Signed On 04/19/25 patient was unable to tolerate PO Zofran and rectal phenergan was prescribed at this time. Patient should continue to use suppositories as needed and will discuss at NOB. NICOLÁS Cedillo Tara, RN 04/22/2025 1:47 PM S[address] Spoke to Dr. Grimm, as per her note on 04/19/25, Pt called in over weekend and Pt was given phenergan because she was unable to keep PO zofran down and Dr. Grimm did state that the Pt did not sound well on the phone. Would you be willing to at least give Pt one refill of zofran prior to NOB appt? Please advise. BOZENA Castelan Courtney, APRN.CNM 04/22/2025 1:58 PM Addendum RX sent. She should NOT use both medications together. NICOLÁS Cedillo Courtney, APRN.CNM 04/22/2025 1:59 PM Signed Addended by: SETH CASTRO on: 04/22/2025 01:59 PM Modules accepted: Orders Carine Doherty RN 04/22/2025 5:03 PM Signed [employer] message sent to Pt. Carine Doherty RN Allergies As of Date: 04/22/2025 (No Known Allergies) Date Reviewed: 04/22/2025 Reviewed by: Mona Lewis MA - Fully Assessed Reason for Visit: Nausea [70] Order(s):ondansetron (ZOFRAN) 4 mg tabletTake 1 tablet by mouth every 8 hours as needed for nausea/vomiting.Disp : 30 tabletRfl: 0 Prescriptions as of 04/22/2025 - ondansetron (ZOFRAN) 4 mg tablet Take 1 tablet by mouth every 8 hours as needed for nausea/vomiting. - promethazine (PHENERGAN) 12.5 mg suppository 1 suppository by RECTAL route every 6 hours as needed. - vits no.138/folic/dha (ALIVE ORAL) Take by mouth. - Cholecalciferol, Vitamin D3, (VITAMIN D) 25 mcg (1,000 unit) cap Take 1 capsule by mouth once daily. - hydrocortisone 1 % ointment Apply to affected area two times a day for 21 days. Apply twice daily for 2 weeks then daily for 1 week - sertraline (ZOLOFT) 100 mg tablet Take 1 tablet by mouth once daily. Problem List As Of Date 04/22/2025 Noted Resolved ADHD (attention deficit hyperactivity disorder)*08/28/2011 with uncertain dates in first trimest*03/27/2024 09/08/2024 Family history of deafness [Z82.2] 03/27/2024 Hyperemesis gravidarum (HCC) [O21.0] 03/27/2024 12/30/2024 anxiety [O99.345, F41.8] 03/27/2024 Depression affecting in second trimes*05/22/2024 12/30/2024 Cervix, short (affecting ) [O26.879] 07/13/2024 contractions [O47.00] 08/24/2024 10/29/2024 Anxiety and depression [F41.9, F32.A] 08/25/2024 Prematurity of fetus [P07.30] 08/25/2024 Rib pain [R07.81] 09/29/2024 mood disorder (HCC) [O90.6] 12/30/2024 Prescriptions ordered this encounter Disp Refills Start End ONDANSETRON HCL 4 MG TABLET 30 t* 0 04/22/2025 Route: PO Sig: Take 1 tablet by mouth every 8 hours as needed for nausea/vomiting. Encounter Status:Closed by SETH CASTRO on 04/22/25 [facility] Z[facility] RO[facility] ([id number]) 5 F Date Time Provider Department 04/19/25 ALISON GRIMM During your visit today, we recorded the following information about you: Alison Grimm MD 04/19/2025 3:26 PM Signed Constant nausea. Unable to tolerate PO zofran. Requesting a different medication. Ok trying rectal phenergan Allergies As of Date: 04/19/2025 (No Known Allergies) Date Reviewed: 04/16/2025 Reviewed by: Toby Rome APRN.HOG BUYER - Fully Assessed Order(s):promethazin e (PHENERGAN) 12.5 mg suppository1 suppository by RECTAL route every 6 hours as needed.Disp: 40 suppositoryRfl: 1 Prescriptions as of 04/19/2025 - promethazine (PHENERGAN) 12.5 mg suppository 1 suppository by RECTAL route every 6 hours as needed. - vits no.138/folic/dha (ALIVE ORAL) Take by mouth. - Cholecalciferol, Vitamin D3, (VITAMIN D) 25 mcg (1,000 unit) cap Take 1 capsule by mouth once daily. - hydrocortisone 1 % ointment Apply to affected area two times a day for 21 days. Apply twice daily for 2 weeks then daily for 1 week - sertraline (ZOLOFT) 100 mg tablet Take 1 tablet by mouth once daily. Problem List As Of Date 04/19/2025 Noted Resolved ADHD (attention deficit hyperactivity disorder)*08/28/2011 with uncertain dates in first trimest*03/27/2024 09/08/2024 Family history of deafness [Z82.2] 03/27/2024 Hyperemesis gravidarum (HCC) [O21.0] 03/27/2024 12/30/2024 anxiety [O99.345, F41.8] 03/27/2024 Depression affecting in second trimes*05/22/2024 12/30/2024 Cervix, short (affecting ) [O26.879] 07/13/2024 contractions [O47.00] 08/24/2024 10/29/2024 Anxiety and depression [F41.9, F32.A] 08/25/2024 Prematurity of fetus [P07.30] 08/25/2024 Rib pain [R07.81] 09/29/2024 mood disorder (HCC) [O90.6] 12/30/2024 Prescriptions ordered this encounter Disp Refills Start End PROMETHAZINE 12.5 MG RECTAL SUPPOSIT* 40 s* 1 04/19/2025 Route: VT Si suppository by RECTAL route every 6 hours as needed. Medications Discontinued During This Encounter Prescriptions - ondansetron (ZOFRAN) 4 mg tablet (Discontinued) Take 1 tablet by mouth every 8 hours as needed for nausea/vomiting. Encounter Status:Closed by ALISON GRIMM on 04/19/25 [facility] CNOVon 04-16-2025 CNOV Office Visit (OBGYWM) ZAIN ROSE ([id number]) 5 F Date Time Provider Department 04/16/25 1:30 PM TOBY ROME During your visit today, we recorded the following information about you: Blood pressure Weight 120/68 76.2 kg Toby Rome APRN.CNP 04/16/2025 3:51 PM Signed Bioinformatics Specialist offered: Patient declines. Zain Rose is a 20 year old female who presents for lower left quadrant pain in early . HPI: Zain is here for lower left quadrant pain in early . LMP 02/09, putting her at around 9 weeks today. HCG has increased to 9771 (04/14) from 989 on 04/08. Reports pain is still present, but mild. Denies bleeding. She is almost 6 months . Has not had ultrasound to confirm IUP. 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 Operator History LMP: 02/13/2025 (Exact Date), Unknown Age at Menarche: 13 Age at First : Age at Menopause: Corduroy Brusher Operator History Comments: Sexual Activity: Not Currently; Male Contraception: No contraception data on record PAST MEDICAL HISTORY Diagnosis Date ADHD (attention deficit hyperactivity disorder) Depression affecting in second trimester, antepartum (HCC) 05/22/2024 May 22, 2024 Initial Office Visit from 03/27/2024 in OB/Gynecology Routine Office Visit from 05/22/2024 in OB/Gynecology 03/24/2024 03/27/2024 05/22/2024 [id number] Depression Screening Over the past 2 weeks have you felt down, depressed, or hopeless? Negative Negative Positive - Further Testing Generalized anxiety disorder Hyperemesis gravidarum (HCC) 03/27/2024 May 22, 2024 Significantly improving with Zofran pump and IV fluids. Toby Rome APRN.HOG BUYER May 13, 2024 - Continues to experience severe nausea and vomiting - Minimal food/water intake - Phenergan providing some relief - Recommend Zofran pump, ordered. May 08, 2024 7% weight loss Tried going to ER, but was waiting for 4 hours so she left Vomits up to 10x per day NEGATIVE MEDICAL HISTORY normal color vision past medical history of age 2 years dermatoid - by her right eye contractions (HCC) 08/24/2024 PAST SURGICAL HISTORY Procedure Laterality Date NEXPLANON REMOVAL Left 10/07/2023 PAST SURGICAL HISTORY OF surgery on eye FAMILY HISTORY Problem Relation Age of Onset Allergies Father Cancer Maternal Grandmother Breast Cancer Maternal Grandmother SOCIAL HISTORY[1] Current Outpatient Medications Medication Sig vits no.138/folic/dha (ALIVE ORAL) Take by mouth. hydrocortisone 1 % ointment Apply to affected area two times a day for 21 days. Apply twice daily for 2 weeks then daily for 1 week ondansetron (ZOFRAN) 4 mg tablet Take 1 tablet by mouth every 8 hours as needed for nausea/vomiting. sertraline (ZOLOFT) 100 mg tablet Take 1 tablet by mouth once daily. No current facility-administere d medications for this visit. Allergies As of Date: 04/16/2025 (No Known Allergies) Fully Assessed 04/16/2025 REVIEW OF SYSTEMS Abdomen: No bloating, early satiety, indigestion, or increased flatulence. No abdominal pain, nausea, vomiting, diarrhea, or constipation. + LLQ pain Expanded ROS: GRADUATE INTERN: + positive test Allergies and current medication updated:Yes SENSITIVE EXAM: The sensitive examination was discussed with the Patient or Patient's Authorized Surface Plate Inspector. As applicable, any other physician, advance practice provider, medical student, or other health professional student that will be observing or involved in the sensitive examination for educational or training purposes was discussed with the Patient or Authorized Surface Plate Inspector. The Patient or Authorized Surface Plate Inspector has agreed to proceed with the sensitive examination. (Sensitive examination includes inspection and/or palpation of the breasts, pelvis, prostate and anorectal regions). EXAM: BP 120/68 Wt 168 lb (76.2kg) LMP 02/13/2025 GENERAL: pleasant, female in no apparent distress HEENT: Normocephalic, atraumatic, mucus membranes moist, and no lesions CHEST: Normal inspiratory effort ABDOMEN: soft, non-tender, and no masses PELVIC: external genitalia normal, normal Bartholin's glands, urethra, Huxley's glands, no vulvar lesions, normal appearing perineal body and perianal region NEURO: alert and oriented x3,exam grossly non-focal EXTREMITIES: normal ASSESSMENT AND PLAN: 1. with uncertain dates in first trimester (HCC) - ICD9: V22.1, ICD10: Z34.91 (primary diagnosis) 2. with uncertain viability, single or unspecified fetus (HCC) - ICD9: V23.87, ICD10: O36.80X0 - POCUS confirms gestational sac in uterus - Images also reviewed by Dr. Carrillo - Discussed with Zain that ectopic has been ruled out. Per Dr. Carrillo, repeat ul (more content not included)... Normal [facility] [place] JAILER ULTRASOUNDon 04-16-20 25 Indication Viability; confirm cardiac activity Impression Single intrauterine gestational sac. No pole or yolk sac identified. Recommendations Follow-up ultrasound in at least [address] Carrillo Method Transvaginal ultrasound examination. View: Adequate visualization Menezes . Number of embryos: 1 Dating LMP on: 02/13/2025 GA by LMP 8 w + 6 d BOGDAN by LMP: 11/20/2025 Assigned: based on the LMP, selected on 04/16/2025 Assigned GA 8 w + 6 d Assigned BOGDAN: 11/20/2025 Assessment Gestational sac: visualized. Location: intrauterine Yolk sac: not visualized Embryo: not visualized Performed By: Toby Rome NP Read By: Toby Rome NP MATERNAL MEDICINE [facility] Radiology Study observation (narrative) [facility] 25(OH)D3 [facility] 25-hydroxyvitamin D3 [Mass/Vol] 17.8 ng/mL Low 31.0-80.0 [facility] Comment on above: Order Comment: Speci men Type: BLOOD SPECIMENOrdering Facility: [facility] Address: [facility] [place] [address] Result Comment: Clas sification of 25 [place] Vitamin D status: Deficiency/Insufficiency: < or = 30 ng/ml. Sufficiency/Optimal Levels: 31-80 ng/mL Toxicity: > 100 ng/mL. Test performed by chemiluminescent immunoassay. Performed By: #### 1 989-3 ####[facility]IA [id number] [place] [address] [place] B-HCG SerPl-aCncon HCG.beta subunit Qn 9771.0 m[IU]/mL High <5.0 [facility] Comment on above: Order Comment: Speci men Type: BLOOD SPECIMENOrdering Facility: [facility] Address: [address] [place] [address] Result Comment: DANIEL TITATIVE HCG NORMAL RANGES Weeks of Gestation (Weeks Since LMP) 3 Weeks (5.8-71.2 mIU/mL) 4 Weeks (9.5-750 mIU/mL) 5 Weeks (217-7138 mIU/mL) 6 Weeks (158-30834 mIU/mL) 7 Weeks (3697-091508 mIU/mL) 8 Weeks (57554-242645 mIU/mL) 9 Weeks (33297-810314 mIU/mL) 10 Weeks (55343-495873 mIU/mL) 12 Weeks (22410-030958 mIU/mL) Referenced to 4th IS of [facility] Performed By: #### 2 1198-7 ####[facility] [id number] [place] [address] [place] CBC W Auto Differential pane l (Bld)on 04-14-2025 Basophils (Bld) [#/Vol] 0.03 10*3/uL Normal <0.11 [facility] Comment on above: Order Comment: Speci men Type: BLOOD SPECIMENOrdering Facility: [facility] Address: [address] [place] [address] Performed By: #### 5 7021-8 ####[facility] [id number] [place] [address] [place] Basophils/100 WBC (Bld) 0.3 % Normal C [facility] Comment on above: Order Comment: Speci men Type: BLOOD SPECIMENOrdering Facility: [facility] Address: [address] [place] [address] Performed By: #### 5 7021-8 ####[facility] [id number] [address], [place] [address] [place] Differential cell count method Nom (Bld) Auto Normal [facility] Comment on above: Order Comment: Speci men Type: BLOOD SPECIMENOrdering Facility: [facility] Address: [address] [place] [address] Performed By: #### 5 7021-8 ####[facility] [id number] [address], [place] [address] [place] Eosinophils (Bld) [#/Vol] 0.04 10*3/uL Normal <0.46 [facility] Comment on above: Order Comment: Speci men Type: BLOOD SPECIMENOrdering Facility: [facility] Address: [address] [place] [address] Performed By: #### 5 7021-8 ####[facility] LABCLIA [id number] [place] [address] [place] Eosinophils/100 WBC (Bld) 0.4 % Normal [facility] Comment on above: Order Comment: Speci men Type: BLOOD SPECIMENOrdering Facility: [facility] Address: [address] [place] [address] Performed By: #### 5 7021-8 ####[facility] LABCLIA [id number] [place] [address] [place] Erythrocyte distribution width (RBC) [Ratio] 12.9 % Normal 11.5-15.0 [facility] Comment on above: Order Comment: Speci men Type: BLOOD SPECIMENOrdering Facility: [facility] Address: [address] [place] [address] Performed By: #### 5 7021-8 ####[facility] LABCLIA [id number] [place] [id number] [place] Hematocrit (Bld) [Volume fraction] 43.1 % Normal 36.0-46.0 [facility] Comment on above: Order Comment: Speci men Type: BLOOD SPECIMENOrdering Facility: [facility] Address: [address] [place] [address] Performed By: #### 5 7021-8 ####[facility]CLIA [id number] [place] [id number] [place] Hemoglobin (Bld) [Mass/Vol] 13.9 g/dL Normal 11.5-15.5 [facility] Comment on above: Order Comment: Speci men Type: BLOOD SPECIMENOrdering Facility: [facility] Address: [address] [place] [address] Performed By: #### 5 7021-8 ####[facility]CLIA [id number] [place] [address] [place] Immature granulocytes (Bld) [#/Vol] 0.07 10*3/uL Normal <0.10 [facility] Comment on above: Order Comment: Speci men Type: BLOOD SPECIMENOrdering Facility: [facility] Address: [address] [place] [address] Performed By: #### 5 7021-8 ####[facility] LABIA [id number] [place] [address] [place] Immature granulocytes/100 WBC (Bld) 0.7 % Normal [facility] Comment on above: Order Comment: Speci men Type: BLOOD SPECIMENOrdering Facility: [facility] Address: [address] [place] [address] Performed By: #### 5 7021-8 ####[facility]CLIA [id number] [place] [address] [place] Lymphocytes (Bld) [#/Vol] 1.81 10*3/uL Normal 1.00-4.00 [facility] Comment on above: Order Comment: Speci men Type: BLOOD SPECIMENOrdering Facility: [facility] Address: [address] [place] [address] Performed By: #### 5 7021-8 ####[facility]CLIA [id number] [place] [address] [place] Lymphocytes/100 WBC (Bld) 18.6 % Normal [facility] Comment on above: Order Comment: Speci men Type: BLOOD SPECIMENOrdering Facility: [facility] Address: [address] [place] [address] Performed By: #### 5 7021-8 ####[facility] LABIA [id number] [place] [address] [place] MCH (RBC) [Entitic mass] 28.3 pg Normal 26.0-34.0 [facility] Comment on above: Order Comment: Speci men Type: BLOOD SPECIMENOrdering Facility: [facility] Address: [address] [place] [address] Performed By: #### 5 7021-8 ####[facility] LABIA [id number] [place] [address] [place] MCHC (RBC) [Mass/Vol] 32.3 g/dL Normal 30.5-36.0 [facility] Comment on above: Order Comment: Speci men Type: BLOOD SPECIMENOrdering Facility: [facility] Address: [address] [place] [address] Performed By: #### 5 7021-8 ####[facility] LABIA [id number] [place] [address] [place] MCV (RBC) [Entitic vol] 87.8 fL Normal 80.0-100.0 [facility] Comment on above: Order Comment: Speci men Type: BLOOD SPECIMENOrdering Facility: [facility] Address: [address] [place] [address] Performed By: #### 5 7021-8 ####[facility] LABIA [id number] [place] [address] [place] Monocytes (Bld) [#/Vol] 0.62 10*3/uL Normal <0.87 [facility] Comment on above: Order Comment: Speci men Type: BLOOD SPECIMENOrdering Facility: [facility] Address: [address] [place] [address] Performed By: #### 5 7021-8 ####[facility]CLIA [id number] [place] [address] [place] Monocytes/100 WBC (Bld) 6.4 % Normal [facility] Comment on above: Order Comment: Speci men Type: BLOOD SPECIMENOrdering Facility: [facility] Address: [address] [place] [address] Performed By: #### 5 7021-8 ####[facility]CLIA [id number] [place] [address] [place] Neutrophils (Bld) [#/Vol] 7.17 10*3/uL Normal 1.45-7.50 [facility] Comment on above: Order Comment: Speci men Type: BLOOD SPECIMENOrdering Facility: [facility] Address: [address] [place] [address] Performed By: #### 5 7021-8 ####[facility]CLIA [id number] [place] [address] [place] Neutrophils/100 WBC (Bld) 73.6 % Normal [facility] Comment on above: Order Comment: Speci men Type: BLOOD SPECIMENOrdering Facility: [facility] Address: [address] [place] [address] Performed By: #### 5 7021-8 ####[facility]CLIA [id number] [place] [address] [place] Nucleated RBC (Bld) [#/Vol] 10*3/uL Normal <0.01 [facility] Comment on above: Order Comment: Speci men Type: BLOOD SPECIMENOrdering Facility: [facility] Address: [address] [place] [address] Performed By: #### 5 7021-8 ####[facility]CLIA [id number] [place] [address] [place] Nucleated RBC/100 WBC (Bld) [Ratio] 0.0 /100 WBC Normal [facility] Comment on above: Order Comment: Speci men Type: BLOOD SPECIMENOrdering Facility: [facility] Address: [address] [place] [address] Performed By: #### 5 7021-8 ####[facility] LABCLIA [id number] [address], [place] [address] [place] Platelet mean volume (Bld) [Entitic vol] 11.6 fL Normal 9.0-12.7 [facility] Comment on above: Order Comment: Speci men Type: BLOOD SPECIMENOrdering Facility: [facility] Address: [address] [place] [address] Performed By: #### 5 7021-8 ####[facility] LABIA [id number] [place] [address] [place] Platelets (Bld) [#/Vol] 310 10*3/uL Normal 150-400 [facility] Comment on above: Order Comment: Speci men Type: BLOOD SPECIMENOrdering Facility: [facility] Address: [address] [place] [address] Performed By: #### 5 7021-8 ####[facility] LABCLIA [id number] [address] [place] [address] [place] RBC (Bld) [#/Vol] 4.91 10*6/uL Normal 3.90-5.20 [facility] Comment on above: Order Comment: Speci men Type: BLOOD SPECIMENOrdering Facility: [facility] Address: [address] [place] [address] Performed By: #### 5 7021-8 ####[facility] LABCLIA [id number] [place] [address] [place] WBC (Bld) [#/Vol] 9.74 10*3/uL Normal 3.70-11.00 [facility] Comment on above: Order Comment: Speci men Type: BLOOD SPECIMENOrdering Facility: [facility] Address: [address] [place] [address] Performed By: #### 5 7021-8 ####[facility] LABCLIA [id number] [facility] [address] [place] CNOVon 04-14-2025 CNOV Office Visit (FAMPWS) ZAIN ROSE ([id number]) 5 F Date Time Provider Department 04/14/25 5:00 PM [facility] During your visit today, we recorded the following information about you: Pulse Respiration Blood pressure Weight 73/minute 12/minute 110/74 75.8 kg Last Period 02/13/25 Diony Ferreira MD 04/14/2025 5:42 PM Signed Family Medicine OUTPATIENT VISIT April 14, 2025 CC: Depression follow up HPI: 20 year old female patient with a history of , , delivered via at [facility] on 10/22/24. 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 HOMAR on 02/25/25 with myself. At that time, she had post depression. Consulted psychiatry and increased sertraline to 100mg Consulted psychology. Also had pain at site of epidural with leg paresthesia though in upper thigh so ordered MRI. Interval events Patient now . Advised to continue sertraline. Established with panel sewer. ED visit 04/08. Hcg 989, US did now show pregancy bu expected at this HCG. Feels like mood is better. Still having some low mood but no more TSH. Anhedonia has resolved. Sleep is poor. Fatigued during day. Chronic insomnia. Concentration is so so. Self esteem is improved. Anxiety is improved a little bit. Still having nausea and emesis. Zofran is helping somewhat. Using zofran ATC. Having emesis about five times per day. Abdominal pain is improved today. Has a rash between her fingers. Noone else with a rash like this. Only on one hand. Scented soaps make it worse. Itchy. Not painful. Not anywhere else. Review of Systems PAIN ASSESSMENT: Negative for pain, history of chronic pain, or current treatment for a chronic pain condition. GENERAL: No weight loss, or fevers HEENT: Negative for frequent or significant headaches RESPIRATORY: Negative for cough, wheezing, shortness of breath CARDIOVASCULAR: Negative for chest pain, palpitations, PND or orthopnea GI: as above : No history of dysuria, frequency, urgency, or change in urine appearance NEURO: No history of headaches, numbness, weakness, or changes to vision or hearing Health maintenance: Meningococcal B Vaccine(1 of 2 - Standard) Never done Allergies: ALLERGIES No Known Allergies Medications: ondansetron (ZOFRAN) 4 mg tablet Take 1 tablet by mouth every 8 hours as needed for nausea/vomiting. sertraline (ZOLOFT) 100 mg tablet Take 1 tablet by mouth once daily. hydrocortisone 1 % ointment Apply to affected area two times a day for 21 days. Apply twice daily for 2 weeks then daily for 1 week iv contrast (will be provided with radiology test) MRI TSP Inject, intravenously, once for 1 dose. No IV access, insert saline lock prior to the beginning of sedation, infusion, injection of imaging exam. Discontinue saline lock post exam. If Pt. has a central line or IVAD, may access for administration according to line specific nursing protocol. Once exam is complete flush line and de-access according to line specific nursing protocol in the MR contrast administration guidelines link. iv contrast (will be provided with radiology test) MRI LSP Inject, intravenously, once for 1 dose. No IV access, insert saline lock prior to the beginning of sedation, infusion, injection of imaging exam. Discontinue saline lock post exam. If Pt. has a central line or IVAD, may access for administration according to line specific nursing protocol. Once exam is complete flush line and de-access according to line specific nursing protocol in the MR contrast administration guidelines link. Past Medical History: PAST MEDICAL HISTORY Diagnosis Date ADHD (attention deficit hyperactivity disorder) Depression affecting in second trimester, antepartum ([facility]) 05/22/2024 May 22, 2024 Initial Office Visit from 03/27/2024 in OB/Gynecology Routine Office Visit from 05/22/2024 in OB/Gynecology 03/24/2024 03/27/2024 05/22/2024 1543 1123 1507 Depression Screening Over the past 2 weeks have you felt down, depressed, or hopeless? Negative Negative Positive - Further Testing Generalized anxiety disorder Hyperemesis gravidarum ([facility]) 03/27/2024 May 22, 2024 Significantly improving with Zofran pump and IV fluids. Toby Rome, [employer]ER May 13, 2024 - Continues to experience severe nausea and vomiting - Minimal food/water intake - Phenergan providing some relief - Recommend Zofran pump, ordered. May 08, 2024 7% weight loss Tried going to ER, but was waiting for 4 hours so she left Vomits up to 10x per day NEGATIVE MEDICAL HISTORY normal color vision past medical history of age 2 years dermatoid - by her right eye contractions ([facility]) 08/24/2024 Social History: SOCIAL (more content not included)... Normal [facility] Comprehensive metabolic 2000 panelon 04-14-2025 Albumin [Mass/Vol] 4.2 g/dL Normal 3.9-4.9 [facility] Comment on above: Order Comment: Speci odilia Type: BLOOD SPECIMENOrdering Facility: [facility] Address: [address] [place] [address] Performed By: #### T [facility], 24306-6, 2276-4, 91345-2 ####[facility] LABCLIA [id number] [place] [address] [place] ALP [Catalytic activity/Vol] 131 U/L High 34-123 [facility] Comment on above: Order Comment: Speci men Type: BLOOD SPECIMENOrdering Facility: [facility] Address: [address] [place] [address] Performed By: #### T [facility], 68448-3, 2275-4, 17076-2 ####[facility] LABCLIA [id number] [address] [address] [place] ALT [Catalytic activity/Vol] 16 U/L Normal 7-38 [facility] Comment on above: Order Comment: Speci men Type: BLOOD SPECIMENOrdering Facility: [facility] Address: [address] [place] [address] Performed By: #### T BHARATHI, 79387-3, 2275-4, 69302-3 ####[facility] LABIA [id number] [address] [address] [place] Anion gap [Moles/Vol] 10 mmol/L Normal 8-15 [facility] Comment on above: Order Comment: Speci men Type: BLOOD SPECIMENOrdering Facility: [facility] Address: [address] [place] [address] Performed By: #### T BHARATHI, 57468-9, 2275-4, 59833-6 ####[facility] LABIA [id number] [address] [address] [place] AST [Catalytic activity/Vol] 18 U/L Normal 13-35 [facility] Comment on above: Order Comment: Speci men Type: BLOOD SPECIMENOrdering Facility: [facility] Address: [address] [place] [address] Performed By: #### T BHARATHI, 09991-1, 4, 00252-0 ####[facility] LABIA [id number] [address] [address] [place] Bilirubin [Mass/Vol] 0.4 mg/dL Normal 0.2-1.3 [facility] Comment on above: Order Comment: Speci men Type: BLOOD SPECIMENOrdering Facility: [facility] Address: [address] [place] [address] Performed By: #### T BHARATHI, 69449-6, 2275-11, ####[facility] LABIA [id number] [address] [address] [place] Calcium [Mass/Vol] 9.2 mg/dL Normal 8.5-10.2 [facility] Comment on above: Order Comment: Speci men Type: BLOOD SPECIMENOrdering Facility: [facility] Address: [address] [place] [address] Performed By: #### T BHARATHI, 63228-4, 2275-11, ####[facility] LABIA [id number] [address] [address] [place] Chloride [Moles/Vol] 105 mmol/L Normal 98-107 [facility] Comment on above: Order Comment: Speci men Type: BLOOD SPECIMENOrdering Facility: [facility] Address: [address] [place] [address] Performed By: #### T BHARATHI, 46213-0, 2275-11, 44213-3 ####[facility] LABIA [id number] [address] [address] [place] CO2 [Moles/Vol] 21 mmol/L Low 22-30 [facility] Comment on above: Order Comment: Speci men Type: BLOOD SPECIMENOrdering Facility: [facility] Address: [address] [place], [place] [address] Performed By: #### T BHARATHI, 21115-4, 2275-11, ####[facility] LABIA [id number] [address] [address] [place] Creatinine [Mass/Vol] 0.56 mg/dL Low 0.58-0.96 [facility] Comment on above: Order Comment: Speci men Type: BLOOD SPECIMENOrdering Facility: [facility] Address: [address] [place], [place] [address] Performed By: #### T BHARATHI, 90566-9, 2275-11, 88768-4 ####[facility] LABCLIA [id number] [place] [address] [place] eGFRcr SerPlBld CKD-EPI 2020 134 mL/min/1.73m??? Normal >=60 [facility] Comment on above: Order Comment: Ana hartley Type: BLOOD SPECIMENOrdering Facility: [facility] Address: [address] [place] [address] Result Comment: Cristy mated Glomerular Filtration Rate (eGFR) is calculated using the 2020 CKD-EPI creatinine equation. This equation utilizes serum creatinine, sex, and age as parameters. The creatinine assay has traceable calibration to isotope dilution-mass spectrometry. Refer to KDIGO guidelines for clinical interpretation. In patients with unstable renal function, e.g. those with acute kidney injury, the eGFR may not accurately reflect actual GFR. Performed By: #### T [facility], 24559-6, 2276-4, 32901-3 ####[facility] LABCLIA [id number] [place] [address] [place] Glucose [Mass/Vol] 76 mg/dL Normal 74-99 [facility] Comment on above: Order Comment: Ana hartley Type: BLOOD SPECIMENOrdering Facility: [facility] Address: [address] [place] [address] Result Comment: The [place] [employer] (ADA) provides guidance for cutoff values for fasting glucose and random glucose. The ADA defines fasting as no caloric intake for at least 8 hours. Fasting plasma glucose results between 100 to 125 mg/dL indicate increased risk for diabetes (prediabetes). Fasting plasma glucose results greater than or equal to 126 mg/dL meet the criteria for diagnosis of diabetes. In the absence of unequivocal hyperglycemia, results should be confirmed by repeat testing. In a patient with classic symptoms of hyperglycemia or hyperglycemic crisis, random plasma glucose results greater than or equal to 200 mg/dL meet the criteria for diagnosis of diabetes. Reference: Standards of Medical Care in Diabetes 2016, [place] [employer]. Diabetes Care. 2016.39(Suppl 1). Performed By: #### T [facility], 77825-9, 2276-4, 21805-5 ####[facility] LABCLIA [id number] [address] [address] [place] Potassium [Moles/Vol] 4.6 mmol/L Normal 3.7-5.1 [facility] Comment on above: Order Comment: Speci men Type: BLOOD SPECIMENOrdering Facility: [facility] Address: [address] [place] [address] Performed By: #### T BHARATHI, 13151-3, 2275-11, 98261-3 ####[facility]CLIA [id number] [address] [address] [place] Protein [Mass/Vol] 6.9 g/dL Normal 6.3-8.0 [facility] Comment on above: Order Comment: Speci men Type: BLOOD SPECIMENOrdering Facility: [facility] Address: [address] [place] [address] Performed By: #### T BHARATHI, 36544-6, 2275-11, 03193-0 ####[facility] LABCLIA [id number] [place] [id number] [place] Sodium [Moles/Vol] 136 mmol/L Normal 136-144 [facility] Comment on above: Order Comment: Speci men Type: BLOOD SPECIMENOrdering Facility: [facility] Address: [address] [place] [address] Performed By: #### T BHARATHI, 56133-1, 2275-11, 99617-0 ####[facility]CLIA [id number] [address] [address] [place] Urea nitrogen [Mass/Vol] 6 mg/dL Low 7-21 [facility] Comment on above: Order Comment: Speci men Type: BLOOD SPECIMENOrdering Facility: [facility] Address: [address] [place], [place] [address] Performed By: #### T BHARATHI, 90944-1, 2275-11, 68518-8 ####[facility] LABCLIA [id number] [place] [id number] [place] Ferritin SerPl-ncon 2024 Ferritin [Mass/Vol] 29.9 ng/mL Normal 14.7-205.1 [facility] Comment on above: Order Comment: Speci men Type: BLOOD SPECIMENOrdering Facility: [facility] Address: [address] [place] [address] Performed By: #### T [facility], 49011-5, 2276-4, 02463-7 ####[facility] [id number] [place] [id number] [place] HCG Preg Ur Qlon 04-14-2025 HCG ( test) Ql (U) Positive Abnormal Negative [facility] Comment on above: Order Comment: Speci men Type: URINE SPECIMENOrdering Facility: [facility] Address: [address] [place] [address] Result Comment: This test is intended to aid in the early detection of . Very dilute urine samples, as indicated by a low specific gravity, may not contain sales representative public utilities levels of hCG. This test detects intact hCG only. This test does not reliably detect hCG degradation products, including free-beta subunit and beta-core fragment. Therefore, this test may show reduced reactivity in urine after 8 weeks gestation. A number of conditions other than , including trophoblastic disease and certain non-trophoblastic neoplasms cause elevated levels of hCG. As with any assay employing mouse antibodies, the possibility exists for interference by human anti-mouse antibodies (HAMA) in the specimen. The test provides a presumptive diagnosis for . Performed By: #### 2 106-3 ####[facility] [id number] [place] [id number] [place] Iron and Iron binding capaci ty panelon 04-14-2025 Iron [Mass/Vol] 79 ug/dL Normal 41-186 [facility] Comment on above: Order Comment: Speci men Type: BLOOD SPECIMENOrdering Facility: [facility] Address: [address] [place] [address] Performed By: #### T [facility], 88130-0, 2276-4, 63445-5 ####[facility] LABIA [id number] [place] [id number] [place] Iron binding capacity [Mass/Vol] 372 ug/dL Normal 232-386 [facility] Comment on above: Order Comment: Speci men Type: BLOOD SPECIMENOrdering Facility: [facility] Address: [address] [place] [address] Performed By: #### T [facility], 26361-6, 6-4, 16547-4 ####[facility] [id number] [place] [id number] [place] Iron/TIBC [Molar ratio] 21.2 % Normal 15.0-57.0 C [facility] Comment on above: Order Comment: Speci men Type: BLOOD SPECIMENOrdering Facility: [facility] Address: [address] [place] [address] Performed By: #### T [facility], 78907-8, 2276-4, 57711-1 ####[facility] [id number] [place] [id number] [place] TSH W/REFLEX FT4on 5 TSH Qn 0.986 m[IU]/L Normal 0.510-4.300 [facility] Comment on above: Order Comment: Speci men Type: BLOOD SPECIMENOrdering Facility: [facility] [facility] Address: [address] [place] [address] Result Comment: If t he patient is , TSH reference range varies by gestational period: First Trimester (weeks 9-12): 0.180-2.990 mIU/L Second Trimester: 0.110-3.980 mIU/L Third Trimester: 0.480-4.710 mIU/L Ricki Bey et al. A Practical Approach for the Verifications and Determination of Site- and Trimester-Specific Reference Intervals for Thyroid Function tests in . Thyroid, 2019:29:3:412-420. Nickolas Saldana, et al. 2017 Guidelines of the [place] [employer] for the Diagnosis and Management of Thyroid Disease during and the . Thyroid, 2017:27:3:315-389. Performed By: #### T [facility], 03588-6, 2276-4, 36148-1 ####[facility] LABCLIA [id number] [place] [address] [place] Bilirubin Test strip Ql (U)O rdered By: Mary Funes on 04-08-2025 Bilirubin Ql (U) Negative Negative [facility] CNPNon 04-08-2025 CNPN Telephone (OBGYWM) ZAIN ROSE ([id number]) 5 F Date Time Provider Department 04/08/25 SUELLEN CORTES OBGYWM During your visit today, we recorded the following information about you: Edilberto Bailey RN 04/08/2025 11:50 AM Signed LMP 02/09/25 - 8w2d Patient calling in c/o LLQ pain that started this morning and seems to be getting worse. Sharp pain rating 5/10 on pain scale currently. No bleeding or other concners. She has not been seen for yet, has not had u/s elsewhere. NOB scheduled for 04/29/25. No available appts today with any provider. Please advise. BOZENA Washington Sara, MD 04/08/2025 1:29 PM Signed Recommend HCG quant today and possibly Saturday depending on level. To go to ER with severe pain or heavy bleeding. Give ectopic precautions Carine Doherty RN 04/08/2025 1:55 PM Signed Left message for patient informing her Q-Layer message was going to be sent and to let our office know that she got the message. OBZENA Castelan Tara, RN 04/08/2025 4:37 PM Signed Pt did read mychart message sent to her on 04/08/25. BOZENA Castelan Lindsey, RN 04/09/2025 12:05 PM Signed Suellen Cortes MD to Seth Castro APRN.Katina Garvin MD 04/08/25 2:34 PM FYI early with LLQ pain. She just delivered only a few months ago. Looks like she was still when she had a visit in December for missed menses. test was negative at that time. Most recent note with Paradise says regular periods with an LMP but implantation bleeding that she thought was a period, so not sure about how regular her periods are. I ordered a HCG quant to get an idea of where we are at. If high she'll need to schedule a pelvic US. If not high I already placed order for a repeat Saturday Matt Lewis RN 04/09/2025 12:05 PM Signed Patient calling stating she went to the [facility] ER yesterday for abdominal pain and was told that she needed to follow up in our office. Patient states blood work in ER was showing that she is only around 4 weeks, but states she should be around 8 weeks. Patient had blood work done at [facility] ER, not [facility] as ordered. Patient states she is still having LLQ pain that she rates at a 6 out of 10, describes as a constant sharp stabbing that increases with movement. Per patient they did not really do anything in the ER, was told she was 4 weeks according to blood work. Patient states she also had an ultrasound, but was told that she was to early and were not able to see anything. Denies any bleeding. Patient does have New OB scheduled for 04/29. ER notes printed from [facility], please review and advise on plan of care. See also below note from from . BOZENA Valdez Courtney, APRN.ESTELLA 04/09/2025 12:19 PM Signed Reviewed ER report. HCG level is 989 which is positive. This HCG level is too low to warrant anything to be seen via ultrasound which they were not able to see in ER. It is recommended that patient follow up with repeat HCG level in 2 days and will follow up with patient next week. Please review bleeding precautions and when she would need to return to ER. We will need to see how her HCG levels trend. Keep NOB. Seth Castro APRN.Edilberto Lim RN 04/09/2025 1:53 PM Signed Patient notified. She will get repeat hcg quant drawn tomorrow. Initial hcg quant was 989 at [facility] on 04/08/25. BOZENA Washington Tara, RN 04/15/2025 4:58 PM Signed Specimen Collected: 04/14/25 3:07 PM EDT Last Resulted: 04/15/25 4:38 PM EDT <5.0 mIU/mL 9,771.0 High Pt calling as she is concerned because states she is only 8 weeks (Per LMP 02/13/25, 8w5d) AND NOB appt is not until 04/29/25 and wanting to know if she should be seen sooner. Unfortunately, no sooner NOB appointments available. Did inform Pt about care center AND that they'll do basic US as Pt states she was high risk previously and is nervous, but informed her that if she does go there to please have records sent to us so that we have them for her NOB appt. Also reviewed with Pt to call the office if she has any severe abdominal pain (Pt states she still has intermittent abdominal pain, tolerable at this time), AND denies vaginal bleeding/but advised to call if begins with. Pt voiced understanding. Informed Pt that we would have provider review HCG level. Please advise re: any additional guidance at this time. BOZENA Castelan Jennifer, MD 04/15/2025 5:10 PM Signed The HCGs are about a week apart but do seem to be rising appropriately. I would recommend she get one a 48 hours to better access the rise unless she has an US from the center with an IUP. Toby Rome APRN.CNP 04/16/2025 7:58 AM Signed I can do a POCUS on her today to confirm IUP. She can return for her full new OB visit. Toby Rome APRN.Carine Hwang RN 04/16/2025 8:27 (more content not included)... Normal [facility] Emergency Department Summary on 04-08-2025 Emergency Department Summary [facility] Medical Records Department [address] [place] [address] Emergency Department Summary 04/08/25 MR#: [id number] Acct: [id number] Name: ZAIN ROSE Rep #: [id number] : 2005 20 From: Darryl Galeano DO PCP: Dr. Halie Butts DO Status:DEP ER Location: ED HPI History of Present Illness Chief Complaint: Abd Pain Narrative Narrative: 20-year-old female who is G2, P1 approximately 8 weeks presents with 2 days of left lower quadrant abdominal pain. 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 She initially thought this pain was ligament pain but after it persisted she called them and they recommended she seek ED evaluation. She has had first trimester nausea and vomiting but this is a chronic issue for her managed with Zofran. She denies fever or chills. No urinary symptoms. She is having normal bowel movements. No history of abdominal surgery. She is about 6 months and states her last was high risk because she had labor at 28 weeks and then vaginal delivery at 36 weeks. [facility] Medical History ADHD Home Medications ???Medication ???Instructions ???Recorded ???Last Taken ???Type vit no.95-ferrous 1 tab PO DAILY 08/24/24 04/07/25 H istory fumarate 28 mg-folic acid 800 mcg tablet () ondansetron HCl 4 mg tablet 4 mg PO Q8H PRN PRN nausea/vomitin g 04/08/25 04/07/25 History sertraline 100 mg tablet 100 mg PO DAILY 04/08/25 04/07/25 History Allergy/AdvReac Type Severity Reaction Status Date / Time No Known Allergies Allergy Verified 04/08/25 13:56 Family History no significant family his Social History Smoking Status: Never smoker ROS ROS ED ROS Narrative Constitutional: Negative for fever, chills, malaise. GI: Positive for abdominal pain, nausea, vomiting. Negative for diarrhea, constipation, melena, hematochezia. : Negative for dysuria, hematuria or frequency. EXAM Physical Exam Narrative Exam Narrative: CONST: Patient sitting in no acute distress. EYES: Normal inspection. NECK: Normal inspection. RESP: No respiratory distress, CTAB. CVS: Regular rate and rhythm, no murmur, no gallop. ABD: Soft mild left lower quadrant tenderness, no guarding or rebound, nondistended. Back: Normal inspection, no CVA tenderness. SKIN: Color normal, no rash, warm, dry, intact. EXTREMITIES: Normal appearance, no pedal edema. NEURO: Alert and answering questions appropriately. PSYCH: Normal affect. Const Vital Signs: 04/08/25 13:56 04/08/25 15:56 04/08/25 17:00 Temperature 98.2 F Temperature Source Temporal Pulse Rate 117 H 70 Respiratory Rate 18 Blood Pressure 117/76 110/56 L 108/64 Blood Pressure Mean 89 74 78 Pulse Ox 97 98 100 Oxygen Delivery Method Room Air Room Air Room Air 04/08/25 18:10 Temperature 97.6 F L Temperature Source Pulse Rate 64 Respiratory Rate 18 Blood Pressure 118/78 Blood Pressure Mean 91 Pulse Ox 99 Oxygen Delivery Method Physical Exam Const Vital Signs: 04/08/25 13:56 04/08/25 15:56 04/08/25 17:00 Temperature 98.2 F Temperature Source Temporal Pulse Rate 117 H 70 Respiratory Rate 18 Blood Pressure 117/76 110/56 L 108/64 Blood Pressure Mean 89 74 78 Pulse Ox 97 98 100 Oxygen Delivery Method Room Air Room Air Room Air 04/08/25 18:10 Temperature 97.6 F L Temperature Source Pulse Rate 64 Respiratory Rate 18 Blood Pressure 118/78 Blood Pressure Mean 91 Pulse Ox 99 Oxygen Delivery Method Physical Exam Const Vital Signs: 04/08/25 13:56 04/08/25 15:56 04/08/25 17:00 Temperature 98.2 F Temperature Source Temporal Pulse Rate 117 H 70 Respiratory Rate 18 Blood Pressure 117/76 110/56 L 108/64 Blood Pressure Mean 89 74 78 Pulse Ox 97 98 100 Oxygen Delivery Method Room Air Room Air Room Air 04/08/25 18:10 Temperature 97.6 F L Temperature Source Pulse Rate 64 Respiratory Rate 18 Blood Pressure 118/78 Blood Pressure Mean 91 Pulse Ox 99 Oxygen Delivery Method MDM MDM MDM Narrative Medical decision making narrative: Differential includes but not limited to UTI, threatened miscarriage, ectopic 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 She appears well and nontoxic. She is tachycardic at 117 with otherwise normal vital signs. Soft with left upper and lower quadrant tenderness but no peritoneal signs. hCG quant is (more content not included)... Normal [facility] Ketones Test strip Ql (U)Ord ered By: Mary Funes on 04-08-2025 Ketones Ql (U) 5 mg/dl High Negative [facility] Microscopic analysis of urin e for red blood cells (RBC)Ordered By: Mary Funes on 04-08-2025 Microscopic analysis of urine for red blood cells (RBC) 0-5 SEEN /hpf 0-5 [facility] Mucus LM Ql (Urine sed)Order ed By: Mary Funes on 04-08-2025 Mucus Ql (Urine sed) 0 SEEN /hpf [facility] Nitrite Test strip Ql (U)Ord ered By: Mary Funes on 04-08-2025 Nitrite Ql (U) Negative Negative [facility] Protein Test strip Ql (U)Ord ered By: Mary Funes on 04-08-2025 Protein Ql (U) Negative Negative [facility] Serum human chorionic gonado tropin detection for pregnancyOrdered By: Mary Funes on 04-08-2025 HCG ( test) Ql 989 mIU/mL High <9 [facility] Comment on above: Gestational Age0.2-1 Week: 5-50 mIU/mL1-2 Weeks: 50-500 mIU/mL2-3 Weeks: 100-5000 mIU/mL3-4 Weeks: 500-10,000 mIU/mL4-5 Weeks:1000-50,000 mIU/mL5-6 Weeks: 10,000-100,000 mIU/mL6-8 Weeks: 15,000-200,000 mIU/mL2-3 Months:10,000-100,000 mIU/mL Squamous epithelial cells de tection in urine sediment by light microscopyOrdered By: Mary Funes on 04-08-2025 Epithelial cells.squamous LM Ql (Urine sed) 5-10 SEEN /hpf 5-10 [facility] Transvaginal w/Preg USon Transvaginal w/Preg US [facility] Imaging Services [address] [place], [place] [address] Transvaginal w/Preg US MR#: [id number] Acct: [id number] Name: ZAIN ROSE Rep #: [id number] : 2005 F 20 From: Chato Nova MD PCP: Dr. Halie Butts DO Status: REG ER Study: Transvaginal w/Preg US Date of Exam: 04/08/25 Exam# [id number] Ordering Dr: Mary Funes PROCEDURE: TRANSVAGINAL W/PREG US 04/08/2025 REASON FOR EXAM: ABDOMINAL PAIN TECHNIQUE: TRANSVAGINAL W/PREG US FINDINGS No visualized intrauterine . No visualized gestational sac. Uterus measures 8.7 x 5.4 x 4.5 cm. No fibroids. Endometrial thickness of 18 mm. Minimal free fluid in the cul-de-sac. Right ovary measures 2.0 x 1.8 x 1.7 cm in the left ovary measures 3.2 x 2.5 x 2.2 cm. Both within preserved vascular flow. US/Transvaginal w/Preg US IMPRESSION: No visualized intrauterine . Reading Location: [facility] CC: Dr. Halie Butts DO; VALERIA Rodriguez Business Support Assistant: Signed Normal [facility] Urinalysis, Completeon 04-08 EPI,SQUAMOUS 5-10 SEEN Normal 5-10 [facility] Comment on above: Order Comment: COLLE CTOR TO SPECIFY Performed By: #### M 100.2200 #### [facility] [address] [place], [place], [id number] RBC 0-5 SEEN Normal 0-5 [facility] Comment on above: Order Comment: COLLE CTOR TO SPECIFY Performed By: #### M 100.2200 #### [facility] [address] [place], [address] WBC 0-5 SEEN Normal 0-5 [facility] Comment on above: Order Comment: MOODY CTOR TO SPECIFY Performed By: #### M 100.2200 #### [facility] [address] [place], [address] BACTERIA 0 SEEN Normal None Seen [facility] Comment on above: Order Comment: MOODY CTOR TO SPECIFY Performed By: #### M 100.2200 #### [facility] [address] [place], [address] Mucus Ql (Urine sed) 0 SEEN Normal [facility] Comment on above: Order Comment: MOODY CTOR TO SPECIFY Performed By: #### M 100.2200 #### [facility] [address] [place], [address] Urine clarityOrdered By: Tamara Funes on 04-08-2025 Clarity (U) Clear Clear [facility] Urine color determinationOrd ered By: aMry Funes on 04-08-2025 Color (U) Straw Yellow [facility] Urine glucose detectionOrder ed By: Mary Funes on 04-08-2025 Glucose Ql (U) Normal mg/dl Normal [facility] Urine leukocyte esterase det ection by dipstickOrdered By: Mary Funes on 04-08-2025 Leukocyte esterase Test strip Ql (U) Negative Negative [facility] Urine pHOrdered By: Mary kenny on 04-08-2025 pH (U) 6.5 [pH] 5.0 - 8.0 [facility] Urine sediment bacteria coun t by microscopy (number/high power field)Ordered By: Mary Funes on 04-08-2025 Bacteria LM.HPF (Urine sed) [#/Area] 0 /[HPF] None Seen [facility] Urine specific gravity measu rementOrdered By: Mary Funes on 04-08-2025 Specific gravity (U) [Rel density] 1.010 1.002-1.030 [facility] Urine urobilinogen measureme ntOrdered By: Mary Funes on 04-08-2025 Urobilinogen Ql (U) Normal mg/dl Normal [facility] White blood cell countOrdere d By: Mary Funes on 04-08-2025 White blood cell count 0-5 SEEN /hpf 0-5 [facility] hCG Titer Quant., Serumon HCG QUANT. 989 mIU/mL High <9 non-preg [facility] Comment on above: Result Comment: Gest ational Age 0.2-1 Week: 5-50 mIU/mL 1-2 Weeks: 50-500 mIU/mL 2-3 Weeks: 100-5000 mIU/mL 3-4 Weeks: 500-10,000 mIU/mL 4-5 Weeks:1000-50,000 mIU/mL 5-6 Weeks: 10,000-100,000 mIU/mL 6-8 Weeks: 15,000-200,000 mIU/mL 2-3 Months:10,000-100,000 mIU/mL Performed By: #### M 100.2200 #### [facility] [address] [place], [address] [facility] 04-04-2025 CNPN Telephone (OBGYWM) ZAIN ROSE ([id number]) 5 F Date Time Provider Department 04/04/25 ALISON GRIMM OBNICK During your visit today, we recorded the following information about you: Alison Grimm MD 04/04/2025 11:54 AM Signed Patient called with worsening nausea and vomiting. Hx of Hyperemesis requiring zofran pump. Requesting zofran rx. Allergies As of Date: 04/04/2025 (No Known Allergies) Date Reviewed: 04/02/2025 Reviewed by: Paradise Diaz APRN.HOG BUYER - Fully Assessed Primary Visit Diagnosis:Nausea and vomiting in (HCC) [O21.9] Order(s):ondansetron (ZOFRAN) 4 mg tabletTake 1 tablet by mouth every 8 hours as needed for nausea/vomiting.Disp : 30 tabletRfl: 1 Prescriptions as of 04/04/2025 - ondansetron (ZOFRAN) 4 mg tablet Take 1 tablet by mouth every 8 hours as needed for nausea/vomiting. - sertraline (ZOLOFT) 100 mg tablet Take 1 tablet by mouth once daily. Problem List As Of Date 04/04/2025 Noted Resolved ADHD (attention deficit hyperactivity disorder)*08/28/2011 with uncertain dates in first trimest*03/27/2024 09/08/2024 Family history of deafness [Z82.2] 03/27/2024 Hyperemesis gravidarum (HCC) [O21.0] 03/27/2024 12/30/2024 anxiety [O99.345, F41.8] 03/27/2024 Depression affecting in second trimes*05/22/2024 12/30/2024 Cervix, short (affecting ) [O26.879] 07/13/2024 contractions [O47.00] 08/24/2024 10/29/2024 Anxiety and depression [F41.9, F32.A] 08/25/2024 Prematurity of fetus [P07.30] 08/25/2024 Rib pain [R07.81] 09/29/2024 mood disorder (HCC) [O90.6] 12/30/2024 Prescriptions ordered this encounter Disp Refills Start End ONDANSETRON HCL 4 MG TABLET 30 t* 1 04/04/2025 Route: PO Sig: Take 1 tablet by mouth every 8 hours as needed for nausea/vomiting. Encounter Status:Closed by ALISON GRIMM on 04/04/25 [facility] Jose Daniel 04-02-2025 CNOV Office Visit (OBGYWM) ZAIN ROSE ([id number]) 5 F Date Time Provider Department 04/02/25 3:30 PM PARADISE DIAZ During your visit today, we recorded the following information about you: Blood pressure Weight Last Period 119/81 74.8 kg 02/09/25 Paradise Diaz APRN.HOG BUYER 04/02/2025 3:50 PM Signed Obstetrics and Gynecology [place] GRADUATE INTERN Visit Subjective Recording using ambient HarQen software for draft documentation of the visit was discussed with the patient/authorized sales representative public utilities; all questions welcomed and answered. Patient/authorized sales representative public utilities agreed to proceed CHIEF COMPLAINT: CC: Patient is a 20-year-old female presenting for a test. HPI: HPI: : - Patient reports regular menstrual cycles and was surprised by a positive test, as multiple home tests were negative. - Last menstrual period was on February 09; initially thought implantation bleeding was a period. - Stopped when trying to conceive due to high-risk status. - Currently experiencing nausea and requests medication to manage symptoms. - Previously required a Zofran pump for nausea during last . - Currently taking Zoloft and inquires about its safety during . 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 Operator History LMP: 2025 (Exact Date), Unknown Age at Menarche: 13 Age at First : Age at Menopause: Corduroy Brusher Operator History Comments: Sexual Activity: Not Currently; Male Contraception: No contraception data on record PAST MEDICAL HISTORY Diagnosis Date ADHD (attention deficit hyperactivity disorder) Depression affecting in second trimester, antepartum (HCC) 05/22/2024 May 22, 2024 Initial Office Visit from 03/27/2024 in OB/Gynecology Routine Office Visit from 05/22/2024 in OB/Gynecology 03/24/2024 03/27/2024 05/22/2024 [id number] Depression Screening Over the past 2 weeks have you felt down, depressed, or hopeless? Negative Negative Positive - Further Testing Generalized anxiety disorder Hyperemesis gravidarum (HCC) 03/27/2024 May 22, 2024 Significantly improving with Zofran pump and IV fluids. Toby Rome APRN.HOG BUYER May 13, 2024 - Continues to experience severe nausea and vomiting - Minimal food/water intake - Phenergan providing some relief - Recommend Zofran pump, ordered. May 08, 2024 7% weight loss Tried going to ER, but was waiting for 4 hours so she left Vomits up to 10x per day NEGATIVE MEDICAL HISTORY normal color vision past medical history of age 2 years dermatoid - by her right eye contractions (HCC) 08/24/2024 PAST SURGICAL HISTORY Procedure Laterality Date NEXPLANON REMOVAL Left 10/07/2023 PAST SURGICAL HISTORY OF surgery on eye FAMILY HISTORY Problem Relation Age of Onset Allergies Father Cancer Maternal Grandmother Breast Cancer Maternal Grandmother SOCIAL HISTORY[1] Current Outpatient Medications Medication Sig sertraline (ZOLOFT) 100 mg tablet Take 1 tablet by mouth once daily. No current facility-administere d medications for this visit. ALLERGIES No Known Allergies REVIEW OF SYSTEMS: Gastrointestinal: (+) nausea Genitourinary: (+) amenorrhea Objective SENSITIVE EXAM: Sensitive exam not performed. PHYSICAL EXAM: BP 119/81 Wt 165 lb (74.8kg) LMP 2025 GENERAL: Pleasant; in no acute distress PULMONARY: normal inspiratory effort NEURO: alert and oriented x3 Assessment AND Plan ASSESSMENT AND PLAN: 1. Missed menses (N92.6) 2. Encounter for test, result positive ([facility]) (Z32.01) - Positive test result; LMP 02/09, currently 7 weeks and 3 days gestation; BOGDAN 11/16/2024. - Advised patient to continue sertraline throughout . - Recommended vitamin B6 and Unisom for nausea management. - Instructed patient to schedule a new OB appointment Paradise Diaz APRN.CNP Medical Decision Making: Problems: Low: Acute, uncomplicated illness or injury Data: Unique test(s) ordered: 1 Risk: Moderate: Drug management Medical Decision Making Level: 3 - Low [1] Social History Tobacco Use Smoking status: Never Smokeless tobacco: Never Tobacco comments: no smoking in home Vaping Use Vaping status: Former Quit date: 03/08/2024 Substance Use Topics Alcohol use: Not Currently Comment: no alcohol use in home Drug use: Never Allergies As of Date: 04/02/2025 (No Known Allergies) Date Reviewed: 04/02/2025 Reviewed by: Paradise Diaz APRN.CNP - Fully Assessed Reason for Visit: problem visit [Other] Primary Visit Diagnosis:Missed menses [N92.6] Other Visit Diagnosis:Encounter for test, result positive ([facility]) [Z32.01] Order(s):UA DIP,URINE HCG (POC) [1725544] Order #: [id number]. #:[id number] (more content not included)... Normal [facility] UA DIP,URINE HCG (POC)on Beta HCG ( test) Ql (U) Positive Abnormal Negative [facility] Comment on above: Location:[facility], [address], [facility] [address] Interpretation and review of laboratory results Abnormal [facility] Director Of Enterprise Strategy (POCT) Internal QC OK [facility] Location:[facility], [address], [place] [id number] [place] [address] POINT OF CARE [facility] CNPNon 03-03-2025 CNPN Telephone (INTMWS) ZAIN ROSE ([id number]) 5 F Date Time Provider Department 03/03/25 DIONY FERREIRA INTWS During your visit today, we recorded the following information about you: Evelyn Draper, ARTHUR 03/03/2025 4:55 PM Signed Your patient arrived today for MRI ordered, we noticed she answered yes to and our onsite Rad requested the patient be reschedule for MRI to verify . Please advise. Allergies As of Date: 03/03/2025 (No Known Allergies) Date Reviewed: 02/25/2025 Reviewed by: Rubi Carrillo LPN - Fully Assessed Reason for Visit: Patient Update [1234] Prescriptions as of 04/09/2025 - ondansetron (ZOFRAN) 4 mg tablet Take 1 tablet by mouth every 8 hours as needed for nausea/vomiting. - sertraline (ZOLOFT) 100 mg tablet Take 1 tablet by mouth once daily. Problem List As Of Date 03/03/2025 Noted Resolved ADHD (attention deficit hyperactivity disorder)*08/28/2011 with uncertain dates in first trimest*03/27/2024 09/08/2024 Family history of deafness [Z82.2] 03/27/2024 Hyperemesis gravidarum (HCC) [O21.0] 03/27/2024 12/30/2024 anxiety [O99.345, F41.8] 03/27/2024 Depression affecting in second trimes*05/22/2024 12/30/2024 Cervix, short (affecting ) [O26.879] 07/13/2024 contractions [O47.00] 08/24/2024 10/29/2024 Anxiety and depression [F41.9, F32.A] 08/25/2024 Prematurity of fetus [P07.30] 08/25/2024 Rib pain [R07.81] 09/29/2024 mood disorder (HCC) [O90.6] 12/30/2024 Encounter Status:Closed by EVELYN DRAPER on 04/09/25 [facility] Jose Daniel 02-25-2025 CNOV Office Visit (FAMPWS) ZAIN ROSE ([id number]) 5 F Date Time Provider Department 02/25/25 5:00 PM DIONY FERREIRA During your visit today, we recorded the following information about you: Temperature Pulse Respiration Blood pressure 98.3 degrees 88/minute 12/minute 110/78 Weight Height Last Period 74.4 kg 1.632 m 02/09/25 Diony Ferreira MD 02/26/2025 12:25 PM Signed Family Medicine OUTPATIENT VISIT February 25, 2025 CC: Depression HPI: 20 year old female patient with a history of , , delivered via at [facility] on 10/22/24. Post delivery course has been complicated by mastitis treated w/ Keflex, hyperemesis gravidarum, and post depression treated with zoloft 50mg OD ADHD not on meds. She presents due to c/f post depression. Thinks that zoloft has been helping. Thoughts that she would be better off but never any actual planning. States I would never do it. Says if she ever did have thoughts of wanting to actually kill herself, she would tell her partner and would go to the ED. Mood has overall recently been getting worse over last few weeks, as have thoughts that things would be better if she were not here. No obvious trigger. Never any thoughts of wanting to hurt others including never any thoughts of wanting to harm her child. No desire to self harm in non fatal method. Previously was on clonidine for sleep prior to . Not currently or planning to resume. Psychosis: None Delusions: None Had longstanding depression prior to delivery. No episodes of magdalena. Also generalized anxiety. No therapy currently. None since [facility]. Not seeing psychiatry. Feels she does have good support at home. She also endorses back pain at side of epidural that has been worsening over last weeks. No drainage or erythema. No radiation of pain. No pain elsewhere. Pain is midline at exact site of epidural placement. No fevers or chills. No hx of IVDU. She is endorsing paresthesia of her right anterior thigh present since that comes and goes but denies any leg or arm weakness, saddle anesthesia, bowel or bladder changes. Also no ZENDEJAS, confusion, speech changes, facial droop, vision or hearing changes. PHQ-9 06/02/2020 07/04/2022 02/24/2025 PHQ-9 Scores Feeling down, depressed, irritable, or hopeless? - Nearly every day - Little interest or pleasure in doing things? - More than half the days - Trouble falling asleep, staying asleep, or sleeping too much? - Nearly every day - Poor appetite, weight loss, or overeating? - More than half the days - Feeling tired, or having little energy? - More than half the days - Feeling bad about yourself - or feeling that you are a failure, or have let yourself or your family down? - Nearly every day - Trouble concentrating on things like school work, reading, or watching TV? - More than half the days - Moving or speaking so slowly that other people could have noticed? Or the opposite- being so fidgety or restless that you have been moving around a lot more than usual? - Nearly every day - Thoughts that you would be better off , or of hurting yourself in some way? - More than half the days - In the PAST YEAR have you felt depressed or sad most days, even if you felt okay sometimes? - Yes - If you are experiencing any of the problems on this questionnaire, how difficult have these problems made it for you to do your work, take care of things at home, or get along with other people? - Somewhat difficult - Has there been a time in the PAST MONTH when you have had serious thoughts about ending your life? - No - Have you EVER, in your WHOLE LIFE, tried to kill yourself or made a suicide attempt? - No - PHQ-A Score - 22 - Little interest or pleasure in doing things: Not at all - Several days Feeling down, depressed, or hopeless: Not at all - Nearly every day Trouble falling or staying asleep, or sleeping too much - - Nearly every day Feeling tired or having little energy - - Nearly every day Poor appetite or overeating - - More than half the days Feeling bad about yourself - or that you are a failure or have let yourself or your family down - - Nearly every day Trouble concentrating on things, such as reading the newspaper or watching television - - More than half the days Moving or speaking so slowly that other people could have noticed. Or the opposite - being so fidgety or restless that you have been moving around a lot more than usual - - More than half the days Thoughts that you would be better off , or of hurting yourself in some way - - More than half the days PHQ-9 Score - - 21 Details Proxy-reported Review of Systems PAIN ASSESSMENT: Negative for pain, history of chronic pain, or current treatment for a chronic pain condition. Pain at epidural site. No mitch (more content not included)... Normal [facility] Satish 02-23-2025 CNPN Telephone (PEDSWS) ZAIN ROSE ([id number]) 5 F Date Time Provider Department 02/23/25 KULDEEP KHAN During your visit today, we recorded the following information about you: Stefanie Stacy MA 02/23/2025 6:18 PM Signed Please put a consult in for patient to ELIZABETH to family [facility] ROBIN Ernst John H, MD 02/24/2025 2:39 PM Signed Telephone on 02/23/25 ESTABLISH WITH PRIMARY CARE - NEW PATIENT MD Maryam Kemp Cherryle, RN 02/24/2025 2:56 PM Signed PSS calling to schedule BOZENA Blankenship Cherryle, RN 02/24/2025 3:31 PM Signed scheduled Nicolle Francisco RN Allergies As of Date: 02/23/2025 (No Known Allergies) Date Reviewed: 01/12/2025 Reviewed by: Erica Rowley LPN - Fully Assessed Reason for Visit: Transition Of Care [4074] Primary Visit Diagnosis:Well adult on routine health check [Z00.00] Order(s):ESTABLISH WITH PRIMARY CARE ? NEW PATIENT [[id number]] Order #: [id number]: 1 FUTURE Prescriptions as of 02/24/2025 - sertraline (ZOLOFT) 50 mg tablet Take 1 tablet by mouth once daily. Problem List As Of Date 02/23/2025 Noted Resolved ADHD (attention deficit hyperactivity disorder)*08/28/2011 with uncertain dates in first trimest*03/27/2024 09/08/2024 Family history of deafness [Z82.2] 03/27/2024 Hyperemesis gravidarum (HCC) [O21.0] 03/27/2024 12/30/2024 anxiety [O99.345, F41.8] 03/27/2024 Depression affecting in second trimes*05/22/2024 12/30/2024 Cervix, short (affecting ) [O26.879] 07/13/2024 contractions [O47.00] 08/24/2024 10/29/2024 Anxiety and depression [F41.9, F32.A] 08/25/2024 Prematurity of fetus [P07.30] 08/25/2024 Rib pain [R07.81] 09/29/2024 mood disorder (HCC) [O90.6] 12/30/2024 Encounter Status:Closed by NICOLLE FRANCISCO on 02/24/25 [facility] CNOVon 01-12-2025 CNOV Office Visit (UCWSTR) ZAIN ROSE ([id number]) 5 Date Time Provider Department 01/12/25 6:15 PM LISA GREGORY [facility] During your visit today, we recorded the following information about you: Temperature Pulse Respiration Blood pressure 98.7 degrees 90/minute 18/minute 124/82 Weight 70.5 kg Lisa Gregory APRN.HOG BUYER 01/12/2025 7:00 PM Signed [facility] Subjective Zain Rose is a 19 year old female. Patient presents with: Breast Problem: Mastitis x 1 day left breast-also missed eriod HPI Patient is a 19-year-old female that is recently . She had a delivery on 10/22/24. She is currently trying to stop breast-feeding and had some left pain in her breast and mild redness. She denies any fever or bodyaches. She states she is also started supposed to start her period today. And would like a test. She denies any abdominal pain, no frequency in urination, or back pain today. Review of Systems Constitutional: Negative for fever. Genitourinary: Negative for difficulty urinating, flank pain, frequency, pelvic pain, vaginal bleeding, vaginal discharge and vaginal pain. Skin: Positive for rash. Psychiatric/Behavior al: Negative for agitation and behavioral problems. Objective BP 124/82 Pulse 90 Temp 37.1 ?C (98.7 ?F) (Tympanic) Resp 18 Wt 70.5 kg (155 lb 6.8 oz) LMP 11/23/2024 (Exact Date) SpO2 99% BMI 25.09 kg/m? PAST MEDICAL HISTORY Diagnosis Date ADHD (attention deficit hyperactivity disorder) Depression affecting in second trimester, antepartum ([facility]) 05/22/2024 May 22, 2024 Initial Office Visit from 03/27/2024 in OB/Gynecology Routine Office Visit from 05/22/2024 in OB/Gynecology 03/24/2024 03/27/2024 05/22/2024 1543 1123 1507 Depression Screening Over the past 2 weeks have you felt down, depressed, or hopeless? Negative Negative Positive - Further Testing Generalized anxiety disorder Hyperemesis gravidarum ([facility]) 03/27/2024 May 22, 2024 Significantly improving with Zofran pump and IV fluids. Toby Rome, HEAD SAWYER.HOG BUYER May 13, 2024 - Continues to experience severe nausea and vomiting - Minimal food/water intake - Phenergan providing some relief - Recommend Zofran pump, ordered. May 08, 2024 7% weight loss Tried going to ER, but was waiting for 4 hours so she left Vomits up to 10x per day NEGATIVE MEDICAL HISTORY normal color vision past medical history of age 2 years dermatoid - by her right eye contractions ([facility]) 08/24/2024 PAST SURGICAL HISTORY Procedure Laterality Date NEXPLANON REMOVAL Left 10/07/2023 PAST SURGICAL HISTORY OF surgery on eye ALLERGIES Patient has no known allergies. MEDICATIONS sertraline (ZOLOFT) 50 mg tablet Take 1 tablet by mouth once daily. cephALEXin (KEFLEX) 500 mg capsule Take 1 capsule by mouth four times daily for 7 days. FAMILY HISTORY Problem Relation Age of Onset Allergies Father Breast Cancer Maternal Grandmother Social History Tobacco Use Smoking status: Never Smokeless tobacco: Never Tobacco comments: no smoking in home Vaping Use Vaping status: Former Quit date: 03/08/2024 Substance Use Topics Alcohol use: Not Currently Comment: no alcohol use in home Drug use: Never Physical Exam Vitals and nursing note reviewed. Constitutional: Appearance: Normal appearance. Cardiovascular: Rate and Rhythm: Normal rate and regular rhythm. Pulses: Normal pulses. Heart sounds: Normal heart sounds, S1 normal and S2 normal. Pulmonary: Effort: Pulmonary effort is normal. Breath sounds: Normal breath sounds. Chest: Chest wall: Tenderness present. No mass, swelling or edema. Breasts: Right: No bleeding, inverted nipple, mass, nipple discharge or skin change. Left: Normal. No bleeding, inverted nipple, mass or nipple discharge. Skin change: Mild erythema 2x2 cm non indurated left breast,. Abdominal: General: Abdomen is flat. Tenderness: There is no abdominal tenderness. There is no right CVA tenderness, left CVA tenderness, guarding or rebound. Lymphadenopathy: Upper Body: Right upper body: No supraclavicular or axillary adenopathy. Left upper body: No supraclavicular or axillary adenopathy. Neurological: Mental Status: She is alert. {ASSESSMENT/PLAN: 1. Missed period - ICD9: 626.4, ICD10: N92.6 (primary diagnosis) - Negative test, continue - HCG QUAL UR B/O - 2. Mastitis - ICD9: 611.0, ICD10: N61.0 - Will start on keflex follow up with OBGYN. - If worsening seek emergency care Lisa Gregory APRN.HOG BUYER History and Record Review Clinical information obtained from an independent historian. History obtained from or confirmed by: parent. External record(s) reviewed: prior outpatient record. Findings from review of outpatient records: Previous charts reviewed Differe (more content not included)... Normal [facility] UA DIP,URINE HCG (POC)on Beta HCG ( test) Ql (U) Negative Negative [facility] Comment on above: Location:[facility], [address] [place] [address], [id number] Director Of Enterprise Strategy (POCT) Internal QC [facility] Location:[facility], [address] [place] [address], [id number] [facility] POINT OF CARE [facility] CNCOon 12-30-2024 CNCO Letter Text Normal [facility] CNOVon 12-30-2024 CNOV Office Visit (OBGYWM) ZAIN ROSE ([id number]) 5 F Date Time Provider Department 12/30/24 4:00 PM TOBY ROME During your visit today, we recorded the following information about you: Blood pressure Weight 110/60 68.9 kg Toby Rome APRN.CNP 12/30/2024 4:12 PM Signed Zain Rose is a 19 year old female who presents for medication follow up. HPI: Zain had reported increased anger at her visit. She had declined counseling, but wanted to trial medication. 50 mg of Zoloft was initiated. She reports today that anger has subsided and that medication is helping significantly. She does not feel that a dosage increase or decrease is necessary. Holding and bonding with baby. Denies thoughts of self harm or harming others. Significant other present. 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 Operator History LMP: 11/23/2024 (Exact Date), Age at Menarche: 13 Age at First : Age at Menopause: Corduroy Brusher Operator History Comments: Sexual Activity: Not Currently; Male Contraception: No contraception data on record PAST MEDICAL HISTORY Diagnosis Date ADHD (attention deficit hyperactivity disorder) Depression affecting in second trimester, antepartum ([facility]) 05/22/2024 May 22, 2024 Initial Office Visit from 03/27/2024 in OB/Gynecology Routine Office Visit from 05/22/2024 in OB/Gynecology 03/24/2024 03/27/2024 05/22/2024 0148 0204 1102 Depression Screening Over the past 2 weeks have you felt down, depressed, or hopeless? Negative Negative Positive - Further Testing Generalized anxiety disorder Hyperemesis gravidarum ([facility]) 03/27/2024 May 22, 2024 Significantly improving with Zofran pump and IV fluids. Toby Rome APRN.HOG BUYER May 13, 2024 - Continues to experience severe nausea and vomiting - Minimal food/water intake - Phenergan providing some relief - Recommend Zofran pump, ordered. May 08, 2024 7% weight loss Tried going to ER, but was waiting for 4 hours so she left Vomits up to 10x per day NEGATIVE MEDICAL HISTORY normal color vision past medical history of age 2 years dermatoid - by her right eye contractions (HCC) 08/24/2024 PAST SURGICAL HISTORY Procedure Laterality Date NEXPLANON REMOVAL Left 10/07/2023 PAST SURGICAL HISTORY OF surgery on eye FAMILY HISTORY Problem Relation Age of Onset Allergies Father Breast Cancer Maternal Grandmother Social History Tobacco Use Smoking status: Never Smokeless tobacco: Never Tobacco comments: no smoking in home Vaping Use Vaping status: Former Quit date: 03/08/2024 Substance Use Topics Alcohol use: Not Currently Comment: no alcohol use in home Drug use: Never Current Outpatient Medications Medication Sig sertraline (ZOLOFT) 50 mg tablet Take 1 tablet by mouth once daily. No current facility-administere d medications for this visit. Allergies As of Date: 12/30/2024 (No Known Allergies) Fully Assessed 12/30/2024 REVIEW OF SYSTEMS Expanded ROS: PSYCH: Negative for depression, anxiety, rage Allergies and current medication updated:Yes SENSITIVE EXAM: Sensitive exam not performed. EXAM: BP 110/60 Wt 152 lb (68.9kg) LMP 11/23/2024 GENERAL: pleasant, female in no apparent distress HEENT: Normocephalic, atraumatic, mucus membranes moist, and no lesions CHEST: Normal inspiratory effort NEURO: alert and oriented x3,exam grossly non-focal EXTREMITIES: normal ASSESSMENT AND PLAN: 1. mood disorder (HCC) - ICD9: 648.44, 296.90, ICD10: O90.6 - Continue 50 mg of Zoloft - Do not attempt to self discontinue without discussing with provider - Declines counseling, mental health resources provided - To notify with worsening mood RTO for annual or sooner as needed. Toby Rome APRN.LUIS I spent a total of 10 minutes on the date of the service which included preparing to see the patient, [id number] patient care, completing clinical documentation, obtaining and/or reviewing separately obtained history, counseling and educating the patient/family/careg iver, and ordering medications, tests, or procedures. Toby Rome APRN.CNP 12/30/2024 4:12 PM Signed Psychotherapy Services at [facility] Call Behavioral Health Access Line at [phone] to schedule Individual psychotherapy In-person or virtual Wait time for first evaluation may be 12 or more weeks. Wait list spots may be available. Due to the high volume of patients this option is recommended if you are looking for short term acute symptom coping strategies. [phone] - [facility] If you are in suicidal crisis, please call or text [phone]-TALK ( ) or visit the National Suicide Prevention Lifeline website. [facility] If you are in c (more content not included)... Normal [facility] CNOVon 11-12-2024 [facility] ([id number]) 5 F Date Time Provider Department 11/12/24 3:30 PM GEORGE PRETTY [facility] During your visit today, we recorded the following information about you: Temperature Pulse Respiration Blood pressure 98.5 degrees 97/minute 20/minute 109/82 Weight Last Period 68 kg 11/12/24 George Pretty, PA 11/12/2024 3:44 PM Signed [facility] Subjective Zain Rose is a 19 year old female. Patient presents with: Breast Problem: Bilat breast, redness warmth, painful, lumps present in both, states she is exclusively pumping x 1 week HPI 19-year-old female presents for bilateral breast redness, warmth, pain, lumpiness and rash. Patient states that she is pumping. She states that she felt like her pump was not getting enough out of her breast, she recently got a new one. She states that she has had bilateral breast warmth, redness and pain for the past week. She has also felt generally unwell. She denies any fevers. She states that her breasts are lumpy and painful. She states yesterday she knows she has a rash around the nipple area on both breasts. It is not itchy, it is a little bit burning. She states infant has no signs of thrush, but also infant does not feed from her breasts. No other complaint PAST MEDICAL HISTORY Diagnosis Date ADHD (attention deficit hyperactivity disorder) Generalized anxiety disorder NEGATIVE MEDICAL HISTORY normal color vision past medical history of age 2 years dermatoid - by her right eye contractions 08/24/2024 PAST SURGICAL HISTORY Procedure Laterality Date NEXPLANON REMOVAL Left 10/07/2023 PAST SURGICAL HISTORY OF surgery on eye ALLERGIES Patient has no known allergies. MEDICATIONS cephALEXin (KEFLEX) 500 mg capsule Take 1 capsule by mouth four times daily for 7 days. clotrimazole (LOTRIMIN) 1 % cream Apply to affected area two times a day for 7 days. ondansetron (ZOFRAN) 4 mg tablet Take 1 tablet by mouth every 8 hours as needed for nausea/vomiting. (Patient not taking: Reported on 11/12/2024) famotidine (PEPCID) 20 mg tablet Take 1 tablet by mouth two times a day. (Patient not taking: Reported on 11/12/2024) cyclobenzaprine (FLEXERIL) 5 mg tablet Take 1 tablet by mouth three times a day as needed. (Patient not taking: Reported on 11/12/2024) FAMILY HISTORY Problem Relation Age of Onset Allergies Father Breast Cancer Maternal Grandmother Social History Tobacco Use Smoking status: Never Smokeless tobacco: Never Tobacco comments: no smoking in home Vaping Use Vaping status: Former Quit date: 03/08/2024 Substance Use Topics Alcohol use: Not Currently Comment: no alcohol use in home Drug use: Never Review of Systems Constitutional: Negative for chills and fever. HENT: Negative for congestion, ear pain and sore throat. Respiratory: Negative for cough and shortness of breath. Cardiovascular: Negative for chest pain. Gastrointestinal: Negative for diarrhea and vomiting. Skin: Positive for color change and rash. Objective BP 109/82 Pulse 97 Temp 36.9 ?C (98.5 ?F) Resp 20 Wt 68 kg (149 lb 14.6 oz) LMP 11/12/2024 (Exact Date) SpO2 97% Yes BMI 24.20 kg/m? Physical Exam Vitals and nursing note reviewed. Exam conducted with a contour stitcher present. Constitutional: General: She is not in acute distress. Appearance: Normal appearance. She is not toxic-appearing. Cardiovascular: Rate and Rhythm: Normal rate and regular rhythm. Pulmonary: Effort: Pulmonary effort is normal. Breath sounds: Normal breath sounds. Chest: Breasts: Right: Skin change and tenderness present. Left: Skin change and tenderness present. Comments: Patient has tenderness of bilateral breasts. She has slightly raised erythematous bumps around bilateral areola's. No drainage or fluctuance. No abscess felt. Skin: General: Skin is warm and dry. Neurological: Mental Status: She is alert. {ASSESSMENT/PLAN: 1. Mastitis - ICD9: 611.0, ICD10: N61.0 (primary diagnosis) -Will cover for mastitis due to breast pain, tenderness. Rx Keflex -Warm compresses to the breasts -Continue pumping 2. Rash - ICD9: 782.1, ICD10: R21 -Rash appears more consistent with a dermatitis or possible nipple candidiasis. Rx for clotrimazole ointment given -Follow-up with mold dresser if symptoms persist Diagnosis and treatment plan were discussed and questions were answered to the patient's satisfaction. Pt acknowledged understanding of concepts and follow up plan. Specific signs and symptoms that would indicate the need for higher level of care were discussed in detail warranting prompt ER evaluation. VALERIA Mcmanus History and Record Review External record(s) reviewed: prior outpatient record. Differential Diagnoses - Mastitis is more likely for the (more content not included)... [facility] (FRIEDAWM) ZAIN ROSE ([id number]) 5 F Date Time Provider Department 10/29/24 TOBY ROME During your visit today, we recorded the following information about you: Toby Rome APRN.LUIS 10/29/2024 3:12 PM Signed Please call patient in 1 week to check on mood. - UMU score 15 - Reports getting good emotional support at home - Declines counseling or medication - Mental health resources provided, including crisis line - Denies thoughts of self harm or thoughts of harming others Toby Rome APRN.Edilberto Lux RN 11/05/2024 8:34 AM Signed Patient states she is feeling better this week. Still no thoughts of harming self or others. Still has good support at home. Has not reached out to counselor. Will call if she feels worse prior to next appt. Edilberto Bailey RN Allergies As of Date: 10/29/2024 (No Known Allergies) Date Reviewed: 10/29/2024 Reviewed by: Toby Rome APRN.LUIS - Fully Assessed Reason for Visit: Anxiety [9] Prescriptions as of 11/05/2024 - ondansetron (ZOFRAN) 4 mg tablet Take 1 tablet by mouth every 8 hours as needed for nausea/vomiting. - famotidine (PEPCID) 20 mg tablet Take 1 tablet by mouth two times a day. - cyclobenzaprine (FLEXERIL) 5 mg tablet Take 1 tablet by mouth three times a day as needed. Problem List As Of Date 10/29/2024 Noted Resolved ADHD (attention deficit hyperactivity disorder)*08/28/2011 with uncertain dates in first trimest*03/27/2024 09/08/2024 Family history of deafness [Z82.2] 03/27/2024 Hyperemesis gravidarum [O21.0] 03/27/2024 Heartburn during in third trimester [*03/27/2024 anxiety [O99.345, F41.8] 03/27/2024 Depression affecting in second trimes*05/22/2024 Cervix, short (affecting ) [O26.879] 07/13/2024 contractions [O47.00] 08/24/2024 10/29/2024 Anxiety and depression [F41.9, F32.A] 08/25/2024 Prematurity of fetus [P07.30] 08/25/2024 Rib pain [R07.81] 09/29/2024 Medications Discontinued During This Encounter Prescriptions - cephALEXin (KEFLEX) 500 mg capsule (Discontinued) Reported on 10/29/2024 - ferrous sulfate (SLOW FE) 140 mg (45 mg iron) TbER (Discontinued) Reported on 10/29/2024 - pantoprazole DR (PROTONIX) 40 mg tablet (Discontinued) Reported on 10/29/2024 - PNV/iron,carb/docusa t/folic ac (PRENA-CAP ORAL) (Discontinued) Reported on 10/29/2024 Encounter Status:Closed by EDILBERTO BAILEY on 11/05/24 Normal [facility] Rule out Beta Strep (Grp. B) on 10-26-2024 [facility] Beta Streptococcus is not isolated. Normal [facility] Comment on above: Performed By: #### M 100.678 #### [facility] [address] [place], [address] CBC W/Diff, Automatedon 03 Absolute Lymph 1.57 X10 3/uL Normal 0.83-4.51 [facility] Comment on above: Performed By: #### L 100.0100 #### [facility] [address] [place], [address] Absolute Neut 15.7 X10 3/uL High 2.0-7.7 [facility] Comment on above: Performed By: #### L 100.0100 #### [facility] [address] [place], [address] Basophils/100 WBC (Bld) 0.2 % Normal 0-1 [facility] Comment on above: Performed By: #### L 100.0100 #### [facility] [address] [place], [address] Eosinophils/100 WBC (Bld) 0.2 % Normal 0-5 [facility] Comment on above: Performed By: #### L 100.0100 #### [facility] [address] [place], [address] Erythrocyte distribution width (RBC) [Ratio] 12.6 % Normal 11.6-14.6 [facility] Comment on above: Performed By: #### L 100.0100 #### [facility] [address] [place], [address] Hematocrit (Bld) [Volume fraction] 36.2 % Low 37-47 [facility] Comment on above: Performed By: #### L 100.0100 #### [facility] [address] [place], [address] Hemoglobin (Bld) [Mass/Vol] 12.3 g/dL Normal 12.0-15.0 [facility] Comment on above: Performed By: #### L 100.0100 #### [facility] [address] [place], [address] IG% 1.100 High 0.0-0.9 [facility] Comment on above: Result Comment: IG% - Immature Granulocytes (promyelocytes, myelocytes and metamyelocytes) > 1% indicates that a LEFT SHIFT is Present. Performed By: #### L 100.0100 #### [facility] [address] [place], [address] Lymphocytes/100 WBC (Bld) 8.4 % Low 19-41 [facility] Comment on above: Performed By: #### L 100.0100 #### [facility] [address] [place], [address] MCH (RBC) [Entitic mass] 28.7 pg Normal 27.0-32.0 [facility] Comment on above: Performed By: #### L 100.0100 #### [facility] [address] [place], [address] MCHC (RBC) [Mass/Vol] 34.0 g/dL Normal 32-36 [facility] Comment on above: Performed By: #### L 100.0100 #### [facility] [address] [place], [address] MCV (RBC) [Entitic vol] 84.6 fL Normal 81-99 [facility] Comment on above: Performed By: #### L 100.0100 #### [facility] [address] [place], [address] Monocytes/100 WBC (Bld) 5.5 % Normal 0-10 [facility] Comment on above: Performed By: #### L 100.0100 #### [facility] [address] [place], [address] Neutrophils/100 WBC (Bld) 84.6 % High 47-70 [facility] Comment on above: Performed By: #### L 100.0100 #### [facility] [address] [place], [address] Nucleated RBC (Bld) [#/Vol] 0 10*3/uL Normal 0-5 [facility] Comment on above: Performed By: #### L 100.0100 #### [facility] [address] [place], [address] Platelet mean volume (Bld) [Entitic vol] 10.6 fL Normal 6.2-12.0 [facility] Comment on above: Performed By: #### L 100.0100 #### [facility] [address] [place], [address] Platelets (Bld) [#/Vol] 273 10*3/uL Normal 150-450 [facility] Comment on above: Performed By: #### L 100.0100 #### [facility] [address] [place], [address] RBC (Bld) [#/Vol] 4.28 10*6/uL Normal 4.2-5.4 [facility] Comment on above: Performed By: #### L 100.0100 #### [facility] [address] [place], [address] RDW SD 38.5 fl Normal 35.1-43.9 [facility] Comment on above: Performed By: #### L 100.0100 #### [facility] [address] [place], [address] WBC (Bld) [#/Vol] 18.6 10*3/uL High 4.4-11.0 [facility] Comment on above: Performed By: #### L 100.0100 #### [facility] [address] [place], [address] H AND P Exam - OB/GYNon H&P Exam - DISPOSAL PLANT OPERATOR [facility] Medical Records Department [address] [place] [address] H P Exam - DISPOSAL PLANT OPERATOR 10/22/24 1750 MR#: [id number] Acct: [id number] Name: ZAIN ROSE GALINDO Rep #: [id number] : 2005 19 From: Alison Grimm MD PCP: Dr. Kuldeep Khan MD Status:ADM IN Location: [id number] HPI - General General Date of Admission: 10/22/24 Date of Service: 10/22/24 Chief Complaint: Contractions HPI Narrative ZAIN ROSE, is a 19 F who presents in labor. GBS positive Maternal Data Information BOGDAN Calculator Estimated Delivery Date Method Current WG Current Estimate 11/15/24 Manual 36w 4d Final BOGDAN: 11/15/24 Gestational age: 36+4 PFSH PFSH Medical History ADHD Home Medications ???Medication ???Instructions ???Recorded ???Last Taken ???Type vit no.95-ferrous 1 tab PO DAILY 08/24/24 10/22/24 0 9:00 History fumarate 28 mg-folic acid 800 mcg tablet () acetaminophen 500 mg tablet 500 mg PO Q6H PRN pain 10/10/24 09:00 History 500 mg pantoprazole 40 mg tablet,delayed 40 mg PO DAILY 10/12/24 10/22/24 09:00 History release 40 mg cyclobenzaprine 5 mg tablet 5 mg PO TID PRN PRN Muscle Spasm 0 10/13/24 10/20/24 Rx #0 tabs 5 mg ondansetron 4 mg disintegrating 4 mg PO Q8H PRN PRN nausea 5 10/22/24 09:00 History tablet 4 mg Allergy/AdvReac Type Severity Reaction Status Date / Time No Known Allergies Allergy Verified 10/12/24 01:05 Family History no significant family his Surgical History no surgical history Social History Smoking Status: Never smoker History 1 Elective abortions Hx Para 0 Spontaneous abortions Hx # Term Pregnancies Ectopic pregnancies Hx # Pregnancies Multiple births # of living children NST FHR Rate Baby A Baseline: 150 Variability:: Moderate Accelerations:: 15 x 15 Decelerations:: None NST Reactive:: Yes FHR Category:: Category I ROS Constitutional Constitutional: Denies fatigue, fever(s) or malaise Eyes Eyes: Denies change in vision ENT HEENT: Denies dizziness or headache(s) Cardiovascular Cardiovascular: Denies chest pain, dyspnea or lightheadedness Respiratory/Chest Respiratory/Chest: Denies cough or dyspnea Gastrointestinal Gastrointestinal: Denies change in bowel habits Genitourinary Genitourinary: Denies burning urination or genital lesions Integumentary Integumentary: Denies rash Neurologic Neurologic: Denies confusion, dizziness, headache(s), numbness or weakness Vital Signs Vital Signs Vital Signs: 10/22/24 17:44 10/22/24 17:44 10/22/24 17:45 Pulse Rate 96 Blood Pressure 116/75 BP Systolic 116 BP Diastolic 75 Pulse Ox 99 10/22/24 17:45 10/22/24 17:49 10/22/24 17:49 Pulse Rate 97 79 Blood Pressure BP Systolic BP Diastolic Pulse Ox 100 Weight Weight: 70.9 kg Body Mass Index (BMI) 25.2 Physical Exam Const alert and no apparent distress General Appearance: cooperative HEENT normocephalic Resp normal respiratory effort Cardio regular rate GI soft to palpation GI Narrative: gravid, nontender, appropriate for gestational age Extremity no calf tenderness General Extremity: edema Skin no wounds Rashes: No rashes noted Psych activity/motor behavior normal Labs Labs Labs: Blood Type O POSITIVE Antibody Screen NEGATIVE Hct 36.2 % (37-47) L Hgb 12.3 g/dL (12.0-15.0) Syphilis Total Ab Nonreactive (Nonreactive) Group B Strep DNA POSITIVE (Negative) H Assessment Plan (1) labor in third trimester: QUALIFIERS: labor delivery status: with delivery in third trimester Fetus number: single or unspecified fetus Qualified Code(s): O60.14X0 - labor third trimester with delivery third trimester, not applicable or unspecified (2) 36 weeks gestation of : PLAN: Plan Admit for labor GBS pos- PCN Epidural prn 10/22/242255 Cosigner Signature (if applicable): CC: Dr. Alison Grimm MD; Dr. Kuldeep Khan MD Signed [facility] L509.8002on 10-22-2024 Syphilis Abs Non-Reactive Normal Nonreactive [facility] Comment on above: Performed By: #### L 400.0001 #### [facility] [address] [place], [address] M8200.0100on 10-22-2024 M8200.0100 Negative [facility] Comment on above: Performed By: #### M 100.678 #### [facility] [address] [place], [address] MR/OB.VAGDELIon 10-22-2024 [facility] Medical Records Department [address] [place] [address] OB Vaginal Delivery 10/22/24 2241 MR#: [id number] Acct: [id number] Name: ZAIN ROSE GALINDO Rep #: [id number] : 2005 19 From: Alison Grimm MD PCP: Dr. Kuldeep Khan MD Status:ADM IN Location: [id number] Assessment Plan (1) delivery: (2) (spontaneous vaginal delivery): Maternal Data Information BOGDAN Calculator Estimated Delivery Date Method Current WG Current Estimate 11/15/24 Manual 36w 4d Final BOGDAN: 11/15/24 Gestational age: 36+4 Vaginal Delivery Maternal Presentation Maternal Presentation: Active Labor Maternal Presentation: labor at 36 weeks Vaginal Delivery Information Procedure Performed: Spontaneous Vaginal Delivery Surgeon/Practitioner : Alison Grimm Date of Procedure: 10/22/24 Pre-Procedure Diagnosis: labor Post-Procedure Diagnosis: Type of anesthesia: Epidural Estimated Blood Loss: 150 cc Time of Delivery: 22:13 Findings Description of procedure: Patient presented to [facility] at 4 cm and very uncomfortable. Admitted in PTL. GBS positive. PCN given. Epidural anesthesia was placed. She progressed without augmentation to complete dilation. AROM was performed just prior to delivery. Delivered AMANDA with the left hand below the chin. Nuchal x 1 reduced prior to delivery. The anterior and posterior shoulders delivered easily followed by the rest of the body. The was placed on the maternal abdomen. The cord was clamped and cut at 45 seconds so the could be moved to the warmer for stimulation. Cord blood was collected. The placenta delivered with gentle traction. A first degree laceration was repaired with 2-0 Vicryl. A left labia laceration was repaired with 3-0 Rapide. All sponge, needle and instrument counts were correct. 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 Alison Grimm MD; Dr. Kuldeep Khan MD Signed Normal [facility] OB Triage Physician Noteon 0 10-22-2024 OB Triage Physician Note [facility] Medical Records Department [address] [place] [address] OB Triage Physician Note 10/22/24 1538 MR#: [id number] Acct: [id number] Name: ZAIN ROSE Rep #: [id number] : 2005 19 From: Alison Grimm MD PCP: Dr. Kuldeep Khan MD Status:ADM IN Y Location: NC505-3 HPI - General General Date of Admission: 10/22/24 Date of Service: 10/22/24 Chief Complaint: Contractions HPI Narrative ZAIN ROSE, is a 19 F who presents from the office with contractions and 4 cm. Found to be in labor and admitted. GBS unknown Maternal Data Information BOGDAN Calculator Estimated Delivery Date Method Current WG Current Estimate 11/15/24 Manual 36w 4d Final BOGDAN: 11/15/24 Gestational age: 36+4 PFSH PFSH Medical History ADHD Home Medications ???Medication ???Instructions ???Recorded ???Last Taken ???Type vit no.95-ferrous 1 tab PO DAILY 08/24/24 10/22/24 0 9:00 History fumarate 28 mg-folic acid 800 mcg tablet () acetaminophen 500 mg tablet 500 mg PO Q6H PRN pain 10/10/24 09:00 History 500 mg pantoprazole 40 mg tablet,delayed 40 mg PO DAILY 10/12/24 10/22/24 09:00 History release 40 mg cyclobenzaprine 5 mg tablet 5 mg PO TID PRN PRN Muscle Spasm 0 10/13/24 10/20/24 Rx #0 tabs 5 mg ondansetron 4 mg disintegrating 4 mg PO Q8H PRN PRN nausea 5 10/22/24 09:00 History tablet 4 mg Allergy/AdvReac Type Severity Reaction Status Date / Time No Known Allergies Allergy Verified 10/12/24 01:05 Social History Smoking Status: Never smoker NST FHR Rate Baby A Baseline: 150 Variability:: Moderate Accelerations:: 15 x 15 Decelerations:: None NST Reactive:: Yes FHR Category:: Category I Assessment Plan (1) labor in third trimester: QUALIFIERS: labor delivery status: with delivery in third trimester Fetus number: single or unspecified fetus Qualified Code(s): O60.14X0 - labor third trimester with delivery third trimester, not applicable or unspecified (2) 36 weeks gestation of : 10/22/24 1750 Date Alison Grimm MD Cosigner Signature (if applicable): Date _ CC: Dr. Alison Grimm MD; Dr. Kuldeep Khan MD Signed Normal [facility] Type AND Screenon 10-22-2024 Ab SCREEN GEL Negative Normal [facility] Comment on above: Order Comment: Labor Performed By: #### L 100.0100 #### [facility] [address] [place], [place], [address] URINE OB DIP B/Oon 5 Glucose Ql (U) Negative Neg mg/dL [facility] Interpretation and review of laboratory results Normal [facility] Protein.monoclonal (U) [Mass/Vol] Negative Neg mg/dL [facility] URINE OB DIP B/Oon 5 Glucose Ql (U) Negative Neg mg/dL [facility] Interpretation and review of laboratory results Normal [facility] Protein.monoclonal (U) [Mass/Vol] trace Neg mg/dL [facility] CBC W/Diff, Automatedon 09-20 Absolute Lymph 1.42 X10 3/uL Normal 0.83-4.51 [facility] Comment on above: Performed By: #### M 100.2200 #### [facility] [address] [place], [place], [address] Absolute Neut 10.9 X10 3/uL High 2.0-7.7 [facility] Comment on above: Performed By: #### M 100.2200 #### [facility] [address] [place], [address] Basophils/100 WBC (Bld) 0.3 % Normal 0-1 [facility] Comment on above: Performed By: #### M 100.2200 #### [facility] [address] [place], [address] Eosinophils/100 WBC (Bld) 0.2 % Normal 0-5 [facility] Comment on above: Performed By: #### M 100.2200 #### [facility] [address] [place], [address] Erythrocyte distribution width (RBC) [Ratio] 12.4 % Normal 11.6-14.6 [facility] Comment on above: Performed By: #### M 100.2200 #### [facility] [address] [place], [address] Hematocrit (Bld) [Volume fraction] 28.9 % Low 37-47 [facility] Comment on above: Performed By: #### M 100.2200 #### [facility] [address] [place], [address] Hemoglobin (Bld) [Mass/Vol] 9.6 g/dL Low 12.0-15.0 [facility] Comment on above: Performed By: #### M 100.2200 #### [facility] [address] [place], [address] IG% 1.000 High 0.0-0.9 [facility] Comment on above: Result Comment: IG% - Immature Granulocytes (promyelocytes, myelocytes and metamyelocytes) > 1% indicates that a LEFT SHIFT is Present. Performed By: #### M 100.2200 #### [facility] [address] [place], [address] Lymphocytes/100 WBC (Bld) 10.6 % Low 19-41 [facility] Comment on above: Performed By: #### M 100.2200 #### [facility] [address] [place], [address] MCH (RBC) [Entitic mass] 28.8 pg Normal 27.0-32.0 [facility] Comment on above: Performed By: #### M 100.2200 #### [facility] [address] [place], [address] MCHC (RBC) [Mass/Vol] 33.2 g/dL Normal 32-36 [facility] Comment on above: Performed By: #### M 100.2200 #### [facility] [address] [place], [address] MCV (RBC) [Entitic vol] 86.8 fL Normal 81-99 [facility] Comment on above: Performed By: #### M 100.2200 #### [facility] [address] [place], [address] Monocytes/100 WBC (Bld) 6.5 % Normal 0-10 [facility] Comment on above: Performed By: #### M 100.2200 #### [facility] [address] [place], [address] Neutrophils/100 WBC (Bld) 81.4 % High 47-70 [facility] Comment on above: Performed By: #### M 100.2200 #### [facility] [address] [place], [address] Nucleated RBC (Bld) [#/Vol] 0 10*3/uL Normal 0-5 [facility] Comment on above: Performed By: #### M 100.2200 #### [facility] [address] [place], [address] Platelet mean volume (Bld) [Entitic vol] 11.0 fL Normal 6.2-12.0 [facility] Comment on above: Performed By: #### M 100.2200 #### [facility] [address] [place], [address] Platelets (Bld) [#/Vol] 176 10*3/uL Normal 150-450 [facility] Comment on above: Performed By: #### M 100.2200 #### [facility] [address] [place], [address] RBC (Bld) [#/Vol] 3.33 10*6/uL Low 4.2-5.4 [facility] Comment on above: Performed By: #### M 100.2200 #### [facility] [address] [place], [address] RDW SD 39.2 fl Normal 35.1-43.9 [facility] Comment on above: Performed By: #### M 100.2200 #### [facility] [address] [place], [address] WBC (Bld) [#/Vol] 13.4 10*3/uL High 4.4-11.0 [facility] Comment on above: Performed By: #### M 100.2200 #### [facility] [address] [place], [address] [facility] ZAIN ROSE ([id number]) 5 F Date Time Provider Department 10/13/24 KATINA REDDY During your visit today, we recorded the following information about you: Alison Yu RN 10/13/2024 9:19 AM Signed 35w2d Please send in prescriptions. Thank you. AlisonBZOENA Fernandez Karmon, MD 10/13/2024 9:34 AM Signed Medications sent. Please kleber to check anemia reflex panel at visit this week due to anemia at [facility]. MD Syeda Powers Trisha, RN 10/13/2024 9:45 AM Signed LANDD aware rx sent to [facility] to notify patient on discharge. Appt note updated. Edilberto Bailey RN Allergies As of Date: 10/13/2024 (No Known Allergies) Date Reviewed: 10/01/2024 Reviewed by: Seth Castro APRN.CNM - Fully Assessed Reason for Visit: Orders [681] Primary Visit Diagnosis:Pyelonephr itis affecting in third trimester [O23.03] Order(s):cyclobenzap rine (FLEXERIL) 5 mg tabletTake 1 tablet by mouth three times a day as needed.Disp: 20 tabletRfl: 0 cephALEXin (KEFLEX) 500 mg capsuleTake 1 capsule by mouth four times daily.Disp: 40 capsuleRfl: 0 ferrous sulfate (SLOW FE) 140 mg (45 mg iron) TbERTake 1 tablet by mouth once daily. With orange juice.Disp: 30 tabletRfl: 1 Prescriptions as of 10/13/2024 - cyclobenzaprine (FLEXERIL) 5 mg tablet Take 1 tablet by mouth three times a day as needed. - cephALEXin (KEFLEX) 500 mg capsule Take 1 capsule by mouth four times daily. - ferrous sulfate (SLOW FE) 140 mg (45 mg iron) TbER Take 1 tablet by mouth once daily. With orange juice. - ondansetron (ZOFRAN) 4 mg tablet Take 1 tablet by mouth every 8 hours as needed for nausea/vomiting. - pantoprazole DR (PROTONIX) 40 mg tablet Take 1 tablet by mouth once daily. - progesterone micronized (PROMETRIUM) 200 mg capsule Use 1 capsule vaginally once daily. - PNV/iron,carb/docusa t/folic ac (PRENA-CAP ORAL) Take 1 tablet by mouth once daily. Problem List As Of Date 10/13/2024 Noted Resolved ADHD (attention deficit hyperactivity disorder)*08/28/2011 with uncertain dates in first trimest*03/27/2024 09/08/2024 Supervision of high risk in third tri*03/27/2024 Family history of deafness [Z82.2] 03/27/2024 Hyperemesis gravidarum [O21.0] 03/27/2024 Heartburn during in third trimester [*03/27/2024 Anxiety during [O99.340, F41.9] 03/27/2024 Depression affecting in second trimes*05/22/2024 Cervix, short (affecting ) [O26.879] 07/13/2024 Threatened labor, third trimester [O47.*08/24/2024 contractions [O47.00] 08/24/2024 Anxiety and depression [F41.9, F32.A] 08/25/2024 Prematurity of fetus [P07.30] 08/25/2024 Rib pain [R07.81] 09/29/2024 30 weeks gestation of [Z3A.30] 09/29/2024 Prescriptions ordered this encounter Disp Refills Start End CYCLOBENZAPRINE 5 MG TABLET 20 t* 0 10/13/2024 Route: ORAL Sig: Take 1 tablet by mouth three times a day as needed. CEPHALEXIN 500 MG CAPSULE 40 c* 0 10/13/2024 Route: ORAL Sig: Take 1 capsule by mouth four times daily. FERROUS SULFATE ER 140 MG (45 MG IRO* 30 t* 1 10/13/2024 Route: ORAL Sig: Take 1 tablet by mouth once daily. With orange juice. Encounter Status:Closed by EDILBERTO BAILEY on 10/13/24 Normal [facility] Metabolic Prof ilon 10-13-2024 Albumin [Mass/Vol] 2.2 g/dL Low 3.2-5.0 [facility] Comment on above: Performed By: #### L 100.0100 #### [facility] [address] [place], [place], [address] Albumin/Globulin [Mass ratio] 0.7 {ratio} Low 0.9-2.4 [facility] Comment on above: Performed By: #### L 100.0100 #### [facility] [address] [place], [address] ALK P 165 U/L High 45-117 [facility] Comment on above: Performed By: #### L 100.0100 #### [facility] [address] [place], [address] ALT [Catalytic activity/Vol] 14 U/L Normal 13-56 [facility] Comment on above: Performed By: #### L 100.0100 #### [facility] [address] [place], [address] AST [Catalytic activity/Vol] 16 U/L Normal 15-37 [facility] Comment on above: Performed By: #### L 100.0100 #### [facility] [address] [place], [address] Bilirubin [Mass/Vol] 0.40 mg/dL Normal 0.20-1.00 [facility] Comment on above: Result Comment: For patients on eltrombopag therapy, use of Dimension [place] TBIL is not recommended. Performed By: #### L 100.0100 #### [facility] [address] [place], [address] BUN/CRE 9.5 RATIO Low 10-20 [facility] Comment on above: Performed By: #### L 100.0100 #### [facility] [address] [place], [address] CA,Total 8.4 mg/dL Low 8.5-10.1 [facility] Comment on above: Performed By: #### L 100.0100 #### [facility] [address] [place], [address] Chloride [Moles/Vol] 109 mmol/L High 98-107 [facility] Comment on above: Performed By: #### L 100.0100 #### [facility] [address] [place], [address] CO2 [Moles/Vol] 21.0 mmol/L Normal 21.0-32.0 [facility] Comment on above: Performed By: #### L 100.0100 #### [facility] [address] [place], [address] Creatinine [Mass/Vol] 0.32 mg/dL Low 0.55-1.02 [facility] Comment on above: Result Comment: The validity of the calculated GFR GFRAA in patients over 70 years has not been determined. Clinical correlation is essential. Performed By: #### L 100.0100 #### [facility] [address] [place], [address] ECRCL 290.85 ml/min Normal [facility] Comment on above: Performed By: #### L 100.0100 #### [facility] [address] [place], [address] EST GFR - AA 343 mL/min Normal >60 [facility] Comment on above: Result Comment: Afri can Bah[place]ian GFR Calc Performed By: #### L 100.0100 #### [facility] [address] [place], [address] GAP 9 Normal 5-15 [facility] Comment on above: Performed By: #### L 100.0100 #### [facility] [address] [place], [address] GFR/1.73 sq M.predicted among non-blacks MDRD (S/P/Bld) [Vol rate/Area] 284 mL/min/{1.73_m2} Normal >60 [facility] Comment on above: Result Comment: Non- GFR Calc Performed By: #### L 100.0100 #### [facility] [address] [place], [address] Globulin (S) [Mass/Vol] 3.0 g/dL Normal 2.2-4.2 [facility] Comment on above: Performed By: #### L 100.0100 #### [facility] [address] [place], [address] Glucose [Mass/Vol] 78 mg/dL Normal 74-106 [facility] Comment on above: Performed By: #### L 100.0100 #### [facility] [address] [place], [address] Potassium [Moles/Vol] 3.2 mmol/L Low 3.5-5.1 [facility] Comment on above: Performed By: #### L 100.0100 #### [facility] [address] [place], [address] Sodium [Moles/Vol] 139 mmol/L Normal 136-145 [facility] Comment on above: Performed By: #### L 100.0100 #### [facility] [address] [place], [address] T PROT 5.2 g/dL Low 6.4-8.2 [facility] Comment on above: Performed By: #### L 100.0100 #### [facility] [address] [place], [address] Urea nitrogen [Mass/Vol] 3 mg/dL Low 7-18 [facility] Comment on above: Performed By: #### L 100.0100 #### [facility] [address] [place], [address] Abdomen/Pelvis W IV Cont ONL Yon 10-12-2024 Abdomen/Pelvis W IV Cont ONLY [facility] Imaging Services [address] [place] [address] Abdomen/Pelvis W IV Cont ONLY MR#: [id number] Acct: [id number] Name: ZAIN ROSE Rep #: [id number] : 2005 F 19 From: Lise Estevez nd, MD PCP: Dr. Kuldeep Khan MD Status: REG ER Study: Abdomen/Pelvis W IV Cont ONLY Date of Exam: Exam# [id number] Ordering Dr: Garcia Castaneda DO PROCEDURE: ABDOMEN/PELVIS W IV CONT ONLY REASON FOR EXAM: 19-year-old female, right lower quadrant abdominal pain, 35 weeks . TECHNIQUE: Abdomen and pelvis CT with intravenous contrast. No oral contrast. IV CONTRAST: Isovue-300 COMPARISON: None. FINDINGS: Lung bases: Clear Liver: The liver is normal in size without focal hepatic mass. The major portal veins are patent. No biliary ductal dilation. Gallbladder: No radiopaque stones within the gallbladder. Spleen: Unremarkable. Pancreas: Unremarkable. Adrenals: Unremarkable. Kidneys: Mild bilateral hydroureteronephrosi s, compatible with patient's state. No nephrolithiasis. Bladder: Minimally distended and unremarkable. Reproductive Organs: Presence of Menezes intrauterine fetus in cephalic presentation. Bowel: Diffuse compression of the bowel loops secondary to patient's state. The bowel loops are normal in caliber. No ascites or pneumoperitoneum. The appendix is not discretely visualized. Lymph nodes: No suspicious lymph node enlargement. Vasculature: Major vascular structures are unremarkable. Bones: Unremarkable. CT/Abdomen/Pelvis W IV Cont ONLY IMPRESSION: 1. No inflammatory mass, ascites or free air. The appendix is not discretely visualized. 2. Menezes intrauterine fetus in cephalic presentation. One or more dose reduction techniques were used (e.g., Automated exposure control, adjustment of the mA and/or kV according to patient size, use of iterative reconstruction technique). Reading Location: [facility] CC: Dr. Kuldeep Khan MD; Dr. Garcia Castaneda DO Business Support Assistant: Signed Normal [facility] Amylaseon 10-12-2024 [place] 90 U/L Normal 25-115 [facility] Comment on above: Performed By: #### L 100.0100 #### [facility] [address] [place], [address] CBC W/Diff, Automatedon 09-20 Absolute Neut Normal 2.0-7.7 [facility] Comment on above: Result Comment: Canc elled via OM: Ordered Performed By: #### L 100.0100 #### [facility] [address] [place], [address] HCT Normal 37-47 [facility] Comment on above: Result Comment: Canc elled via OM: MD Ordered Performed By: #### L 100.0100 #### [facility] [address] [place], [address] HGB Normal 12.0-15.0 [facility] Comment on above: Result Comment: Canc elled via OM: MD Ordered Performed By: #### L 100.0100 #### [facility] [address] [place], [address] MCH Normal 27.0-32.0 [facility] Comment on above: Result Comment: Canc elled via OM: MD Ordered Performed By: #### L 100.0100 #### [facility] [address] [place], [address] MCHC Normal 32-36 [facility] Comment on above: Result Comment: Canc elled via OM: MD Ordered Performed By: #### L 100.0100 #### [facility] [address] [place], [address] MCV Normal 81-99 [facility] Comment on above: Result Comment: Canc elled via OM: MD Ordered Performed By: #### L 100.0100 #### [facility] [address] [place], [address] NEUT% Normal 47-70 [facility] Comment on above: Result Comment: Canc elled via OM: MD Ordered Performed By: #### L 100.0100 #### [facility] [address] [place], [address] PLT Normal 150-450 [facility] Comment on above: Result Comment: Canc elled via OM: MD Ordered Performed By: #### L 100.0100 #### [facility] [address] [place], [address] RBC Normal 4.2-5.4 [facility] Comment on above: Result Comment: Canc elled via OM: MD Ordered Performed By: #### L 100.0100 #### [facility] [address] [place], [address] RDW CV Normal 11.6-14.6 [facility] Comment on above: Result Comment: Canc elled via OM: MD Ordered Performed By: #### L 100.0100 #### [facility] [address] [place], [address] RDW SD Normal 35.1-43.9 [facility] Comment on above: Result Comment: Canc elled via OM: MD Ordered Performed By: #### L 100.0100 #### [facility] [address] [place], [address] WBC Normal 4.4-11.0 [facility] Comment on above: Result Comment: Canc elled via OM: MD Ordered Performed By: #### L 100.0100 #### [facility] [address] [place], [address] Absolute Lymph 1.56 X10 3/uL Normal 0.83-4.51 [facility] Comment on above: Performed By: #### L 100.0100 #### [facility] [address] [place], [address] Absolute Neut 12.0 X10 3/uL High 2.0-7.7 [facility] Comment on above: Performed By: #### L 100.0100 #### [facility] [address] [place], [address] Basophils/100 WBC (Bld) 0.5 % Normal 0-1 [facility] Comment on above: Performed By: #### L 100.0100 #### [facility] [address] [place], [address] Eosinophils/100 WBC (Bld) 0.3 % Normal 0-5 [facility] Comment on above: Performed By: #### L 100.0100 #### [facility] [address] [place], [address] Erythrocyte distribution width (RBC) [Ratio] 12.6 % Normal 11.6-14.6 [facility] Comment on above: Performed By: #### L 100.0100 #### [facility] [address] [place], [address] Hematocrit (Bld) [Volume fraction] 36.2 % Low 37-47 [facility] Comment on above: Performed By: #### L 100.0100 #### [facility] [address] [place], [address] Hemoglobin (Bld) [Mass/Vol] 11.9 g/dL Low 12.0-15.0 [facility] Comment on above: Performed By: #### L 100.0100 #### [facility] [address] [place], [address] IG% 1.600 High 0.0-0.9 [facility] Comment on above: Result Comment: IG% - Immature Granulocytes (promyelocytes, myelocytes and metamyelocytes) > 1% indicates that a LEFT SHIFT is Present. Performed By: #### L 100.0100 #### [facility] [address] [place], [address] Lymphocytes/100 WBC (Bld) 10.4 % Low 19-41 [facility] Comment on above: Performed By: #### L 100.0100 #### [facility] [address] [place], [address] MCH (RBC) [Entitic mass] 28.6 pg Normal 27.0-32.0 [facility] Comment on above: Performed By: #### L 100.0100 #### [facility] [address] [place], [address] MCHC (RBC) [Mass/Vol] 32.9 g/dL Normal 32-36 [facility] Comment on above: Performed By: #### L 100.0100 #### [facility] [address] [place], [address] MCV (RBC) [Entitic vol] 87.0 fL Normal 81-99 [facility] Comment on above: Performed By: #### L 100.0100 #### [facility] [address] [place], [address] Monocytes/100 WBC (Bld) 7.9 % Normal 0-10 [facility] Comment on above: Performed By: #### L 100.0100 #### [facility] [address] [place], [address] Neutrophils/100 WBC (Bld) 79.3 % High 47-70 [facility] Comment on above: Performed By: #### L 100.0100 #### [facility] [address] [place], [address] Nucleated RBC (Bld) [#/Vol] 0 10*3/uL Normal 0-5 [facility] Comment on above: Performed By: #### L 100.0100 #### [facility] [address] [place], [address] Platelet mean volume (Bld) [Entitic vol] 11.0 fL Normal 6.2-12.0 [facility] Comment on above: Performed By: #### L 100.0100 #### [facility] [address] [place], [address] Platelets (Bld) [#/Vol] 236 10*3/uL Normal 150-450 [facility] Comment on above: Performed By: #### L 100.0100 #### [facility] [address] [place], [address] RBC (Bld) [#/Vol] 4.16 10*6/uL Low 4.2-5.4 [facility] Comment on above: Performed By: #### L 100.0100 #### [facility] [address] [place], [address] RDW SD 39.6 fl Normal 35.1-43.9 [facility] Comment on above: Performed By: #### L 100.0100 #### [facility] [address] [place], [address] WBC (Bld) [#/Vol] 15.1 10*3/uL High 4.4-11.0 [facility] Comment on above: Performed By: #### L 100.0100 #### [facility] [address] [place], [address] Comprehensive Metabolic Prof ilon 10-12-2024 Albumin [Mass/Vol] 2.7 g/dL Low 3.2-5.0 [facility] Comment on above: Performed By: #### L 100.0100 #### [facility] [address] [place], [address] Albumin/Globulin [Mass ratio] 0.7 {ratio} Low 0.9-2.4 [facility] Comment on above: Performed By: #### L 100.0100 #### [facility] [address] [place], [address] ALK P 218 U/L High 45-117 [facility] Comment on above: Performed By: #### L 100.0100 #### [facility] [address] [place], [address] ALT [Catalytic activity/Vol] 15 U/L Normal 13-56 [facility] Comment on above: Performed By: #### L 100.0100 #### [facility] [address] [place], [address] AST [Catalytic activity/Vol] 13 U/L Low 15-37 [facility] Comment on above: Performed By: #### L 100.0100 #### [facility] [address] [place], [address] Bilirubin [Mass/Vol] 0.30 mg/dL Normal 0.20-1.00 [facility] Comment on above: Result Comment: For patients on eltrombopag therapy, use of Dimension [place] TBIL is not recommended. Performed By: #### L 100.0100 #### [facility] [address] [place], [address] BUN/CRE 7.0 RATIO Low 10-20 [facility] Comment on above: Performed By: #### L 100.0100 #### [facility] [address] [place], [address] CA,Total 9.0 mg/dL Normal 8.5-10.1 [facility] Comment on above: Performed By: #### L 100.0100 #### [facility] [address] [place], [address] Chloride [Moles/Vol] 108 mmol/L High 98-107 [facility] Comment on above: Performed By: #### L 100.0100 #### [facility] [address] [place], [address] CO2 [Moles/Vol] 23.0 mmol/L Normal 21.0-32.0 [facility] Comment on above: Performed By: #### L 100.0100 #### [facility] [address] [place], [address] Creatinine [Mass/Vol] 0.58 mg/dL Normal 0.55-1.02 [facility] Comment on above: Result Comment: The validity of the calculated GFR GFRAA in patients over 70 years has not been determined. Clinical correlation is essential. Performed By: #### L 100.0100 #### [facility] [address] [place], [address] ECRCL 159.48 ml/min Normal [facility] Comment on above: Performed By: #### L 100.0100 #### [facility] [address] [place], [address] EST GFR - AA 173 mL/min Normal >60 [facility] Comment on above: Result Comment: Afri can [place] GFR Calc Performed By: #### L 100.0100 #### [facility] [address] [place], [address] GAP 8 Normal 5-15 [facility] Comment on above: Performed By: #### L 100.0100 #### [facility] [address] [place], [address] GFR/1.73 sq M.predicted among non-blacks MDRD (S/P/Bld) [Vol rate/Area] 143 mL/min/{1.73_m2} Normal >60 [facility] Comment on above: Result Comment: Non- GFR Calc Performed By: #### L 100.0100 #### [facility] [address] [place], [address] Globulin (S) [Mass/Vol] 4.0 g/dL Normal 2.2-4.2 [facility] Comment on above: Performed By: #### L 100.0100 #### [facility] [address] [place], [address] Glucose [Mass/Vol] 93 mg/dL Normal 74-106 [facility] Comment on above: Performed By: #### L 100.0100 #### [facility] [address] [place], [address] Potassium [Moles/Vol] 3.6 mmol/L Normal 3.5-5.1 [facility] Comment on above: Performed By: #### L 100.0100 #### [facility] [address] [place], [address] Sodium [Moles/Vol] 140 mmol/L Normal 136-145 [facility] Comment on above: Performed By: #### L 100.0100 #### [facility] [address] [place], [address] T PROT 6.7 g/dL Normal 6.4-8.2 [facility] Comment on above: Performed By: #### L 100.0100 #### [facility] [address] [place], [address] Urea nitrogen [Mass/Vol] 4 mg/dL Low 7-18 [facility] Comment on above: Performed By: #### L 100.0100 #### [facility] [address] [place], [address] Emergency Department Summary on 10-12-2024 Emergency Department Summary [facility] Medical Records Department [address] [place] [address] Emergency Department Summary 10/12/24 MR#: [id number] Acct: [id number] Name: ZAIN ROSE GALINDO Rep #: [id number] : 2005 19 From: Garcia Vanegas PCP: Dr. Kuldeep Khan MD Status:ADM IN Location: [id number] HPI HPI - GI History of Present Illness Chief Complaint: Abd Pain Informant: patient and family Narrative Narrative: G1, P0 at 35 weeks gestation followed by [facility] OB. Sent from OB triage for worsening abdominal pain. She states she was kept overnight the day prior for contractions. She was seen by the OB team. She is sent home. Pain worsened this evening. No abdominal surgeries. No fevers. She was given morphine in triage and she was sent down here. Prior similar symptoms: No PFSH PFSH Medical History ADHD Home Medications ???Medication ???Instructions ???Recorded ???Last Taken ???Type vit no.95-ferrous 1 tab PO DAILY 08/24/24 10/10/24 H istory fumarate 28 mg-folic acid 800 mcg tablet () acetaminophen 500 mg tablet 500 mg PO Q6H PRN pain 10/10/24 History progesterone micronized 200 mg 200 mg vaginal DAILY 10/10/2409/20 History capsule pantoprazole 40 mg tablet,delayed 40 mg PO DAILY 10/12/24 Unknown H istory release Allergy/AdvReac Type Severity Reaction Status Date / Time No Known Allergies Allergy Verified 10/12/24 01:05 Social History Smoking Status: Never smoker ROS ROS ED Constitutional Constitutional ED: Denies chills, fever(s) or sweats ENT ENT ED: Denies sore throat Cardiovascular Cardiovascular: Denies chest pain, leg edema, palpitations or racing heartbeat Respiratory/Chest Respiratory/Chest: Denies cough, dyspnea or dyspnea on exertion Gastrointestinal Gastrointestinal: Reports abdominal pain; Denies diarrhea, nausea or vomiting Genitourinary Genitourinary ED: Denies dysuria, hematuria or urinary frequency Musculoskeletal Musculoskeletal: Denies back pain, extremity pain or neck pain Integumentary Denies rash or wounds Neurologic Neurologic: Denies headache(s), paresthesias or weakness EXAM Physical Exam Const Vital Signs: 10/12/24 01:05 10/12/24 02:00 10/12/24 05:00 Temperature 97 F L 97.9 F Temperature Source Oral Pulse Rate 93 97 73 Respiratory Rate 22 H 16 Blood Pressure 137/88 H 114/89 H 113/82 H Blood Pressure Mean 104 95 92 BP Systolic BP Diastolic Pulse Ox 99 99 97 Oxygen Delivery Method Room Air 10/12/24 05:18 10/12/24 05:18 10/12/24 05:21 Temperature Temperature Source Pulse Rate 126 H Respiratory Rate Blood Pressure 130/89 H Blood Pressure Mean BP Systolic 130 BP Diastolic 89 Pulse Ox 97 Oxygen Delivery Method 10/12/24 05:21 10/12/24 05:23 10/12/24 05:23 Temperature Temperature Source Pulse Rate 93 100 Respiratory Rate Blood Pressure Blood Pressure Mean BP Systolic BP Diastolic Pulse Ox 96 Oxygen Delivery Method 10/12/24 05:28 10/12/24 05:28 10/12/24 05:32 Temperature Temperature Source Temporal Pulse Rate 93 Respiratory Rate Blood Pressure Blood Pressure Mean BP Systolic BP Diastolic Pulse Ox 96 Oxygen Delivery Method 10/12/24 05:32 10/12/24 05:32 10/12/24 05:33 Temperature 98.0 F Temperature Source Pulse Rate 97 Respiratory Rate 24 H Blood Pressure Blood Pressure Mean BP Systolic BP Diastolic Pulse Ox Oxygen Delivery Method 10/12/24 05:33 10/12/24 05:36 Temperature Temperature Source Pulse Rate Respiratory Rate Blood Pressure Blood Pressure Mean BP Systolic BP Diastolic Pulse Ox 94 96 Oxygen Delivery Method Positive well nourished and well developed Constitutional Narrative: Pale, uncomfortable General Appearance ED: well developed HEENT Reports moist mucous membranes normocephalic and atraumatic Eyes General Eye ED: Yes normal appearance of both eyes Neck full ROM Chest Wall Chest: Negative for tenderness Resp normal respiratory effort and normal air movement Effort and Inspection: symmetric chest movement; Negative for respiratory distress Cardio regular rate, regular rhythm and no murmurs Peripheral Pulses: pulses 2+ throughout GI GI Narrative: Gravid abdomen tender palpation right side and right lower quadrant. Palpation: Negative for guarding or rebound tenderness present Extremity normal to inspection General Extremety ED: Negative for edema or tenderness General Extremity: Negative for edema Neuro oriented x3 and no sensory deficits noted (more content not included)... 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 Kuldeep Khan MD Status:ADM IN Location: [id number] HPI - General General Date of Admission: 10/12/24 Date of Service: 10/12/24 Chief Complaint: pain HPI Narrative ZAIN ROSE, is a 19 F who presented last night to OB triage with pain. She was admitted overnight by the provider solution make up operator. She reports yesterday she started having right flank pain that wraps around into her right side of her abdomen. She has nausea, vomiting and chills with the pain. She denies dysuria. She says she has had urinary frequency and has been using restroom more often, but only voiding small amounts. She reports having UTI's in the past. Was having contractions on admission that have resolved. No vb or lof. Good FM and states baby is active. Denies fevers, CP, SOB, leg pain. Denies constipation, diarrhea. She last ate soup last night for dinner and had emesis shortly after. Maternal Data Information BOGDAN Calculator Estimated Delivery Date Method Current WG Current Estimate 11/15/24 Manual 35w 1d PFSH PFSH Medical History ADHD Home Medications ???Medication ???Instructions ???Recorded ???Last Taken ???Type vit no.95-ferrous 1 tab PO DAILY 08/24/24 10/10/24 H istory fumarate 28 mg-folic acid 800 mcg tablet () acetaminophen 500 mg tablet 500 mg PO Q6H PRN pain 10/10/24 History progesterone micronized 200 mg 200 mg vaginal DAILY 10/10/2409/20 History capsule pantoprazole 40 mg tablet,delayed 40 mg PO DAILY 10/12/24 Unknown H istory release Allergy/AdvReac Type Severity Reaction Status Date / Time No Known Allergies Allergy Verified 10/12/24 01:05 Social History Smoking Status: Never smoker Vital Signs Vital Signs Vital Signs: 10/12/24 01:05 10/12/24 02:00 10/12/24 05:00 Temperature 97 F L 97.9 F Temperature Source Oral Pulse Rate 93 97 73 Respiratory Rate 22 H 16 Blood Pressure 137/88 H 114/89 H 113/82 H Blood Pressure Mean 104 95 92 BP Systolic BP Diastolic Pulse Ox 99 99 97 Oxygen Delivery Method Room Air 10/12/24 05:18 10/12/24 05:18 10/12/24 05:21 Temperature Temperature Source Pulse Rate 126 H Respiratory Rate Blood Pressure 130/89 H Blood Pressure Mean BP Systolic 130 BP Diastolic 89 Pulse Ox 97 Oxygen Delivery Method 10/12/24 05:21 10/12/24 05:23 10/12/24 05:23 Temperature Temperature Source Pulse Rate 93 100 Respiratory Rate Blood Pressure Blood Pressure Mean BP Systolic BP Diastolic Pulse Ox 96 Oxygen Delivery Method 10/12/24 05:28 10/12/24 05:28 10/12/24 05:32 Temperature Temperature Source Temporal Pulse Rate 93 Respiratory Rate Blood Pressure Blood Pressure Mean BP Systolic BP Diastolic Pulse Ox 96 Oxygen Delivery Method 10/12/24 05:32 10/12/24 05:32 10/12/24 05:33 Temperature 98.0 F Temperature Source Pulse Rate 97 Respiratory Rate 24 H Blood Pressure Blood Pressure Mean BP Systolic BP Diastolic Pulse Ox Oxygen Delivery Method 10/12/24 05:33 10/12/24 05:36 Temperature Temperature Source Pulse Rate Respiratory Rate Blood Pressure Blood Pressure Mean BP Systolic BP Diastolic Pulse Ox 94 96 Oxygen Delivery Method Weight Weight: 163 lb Body Mass Index (BMI) 26.3 Physical Exam Const alert and no apparent distress HEENT normocephalic Resp normal respiratory effort GI soft to palpation GI Narrative: Gravid, moderate tenderness along right side of abdomen. No rebounding, no guarding, no rigidity but did receive IV Morphine 2 hours prior to exam Back/Spine Back/Spine Narrative: +Right sided CVA tenderness General Back: CVA tenderness right Extremity normal to inspection Labs Labs Labs: Blood Type O POSITIVE Antibody Screen NEGATIVE Hct 36.2 % (37-47) L Hgb 11.9 g/dL (12.0-15.0) L Syphilis Total Ab Non-reactive Group B Strep DNA POSITIVE (Negative) H Assessment Plan (1) 35 weeks gestation of : (2) Right flank pain: PLAN: Admit for suspected pyelonephritis. UA shows blood and leuks. She has had flank pain, chills, N/V, urinary frequency. She has CVA tenderness on exam. Start IV Rocephin. Daily CBC with diff. SCD's for DVT prophylaxis. Discussed if no clinical improvement, will need general s (more content not included)... Normal [facility] Lipaseon 10-12-2024 Lipase [Catalytic activity/Vol] 48 U/L Low 73-393 [facility] Comment on above: Performed By: #### L 100.0100 #### [facility] [address] [place], [address] OB Triage Physician Noteon 0 10-12-2024 OB Triage Physician Note [facility] Medical Records Department [address] [place] [address] OB Triage Physician Note 10/12/24 0443 MR#: [id number] Acct: [id number] Name: AZIN ROSE Rep #: [id number] : 2005 19 From: Peggy Cedillo CNM PCP: Dr. Kuldeep Khan MD Status:ADM MARYELLEN Y [id number] HPI - General General Date of Admission: 10/12/24 HPI Narrative ZAIN ROSE, is a 19 F who presents at 35 weeks presents to labor and delivery from the emergency department. No further contractions but intermittent right sided abdominal pain. States now she is able to differentiate the pain is different from the contractions and thinks this was what was really hurting when she presented yesterday. Decreased since in ED as Morphine did help improve discomfort. Nausea and emesis x2. No diarrhea or constipation. No vaginal bleeding or fluid leakage. Maternal Data Information BOGDAN Calculator Estimated Delivery Date Method Current WG Current Estimate 11/15/24 Manual 35w 1d PFSH PFSH Medical History ADHD Home Medications ???Medication ???Instructions ???Recorded ???Last Taken ???Type vit no.95-ferrous 1 tab PO DAILY 08/24/24 10/10/24 H istory fumarate 28 mg-folic acid 800 mcg tablet () acetaminophen 500 mg tablet 500 mg PO Q6H PRN pain 10/10/24 History progesterone micronized 200 mg 200 mg vaginal DAILY 10/10/2409/20 History capsule pantoprazole 40 mg tablet,delayed 40 mg PO DAILY 10/12/24 Unknown H istory release Allergy/AdvReac Type Severity Reaction Status Date / Time No Known Allergies Allergy Verified 10/12/24 01:05 Social History Smoking Status: Never smoker ROS Constitutional Constitutional: Reports systems reviewed and no addt'l complaints, except as documented; Denies headache(s) Eyes Eyes: Denies acute decrease in peripheral vision, blurry vision or change in vision ENT HEENT: Reports systems reviewed and no addt'l complaints, except as documented Cardiovascular Cardiovascular: Denies chest pain or dizziness Respiratory/Chest Respiratory/Chest: Denies cough, dyspnea, dyspnea on exertion, shortness of breath at rest or shortness of breath with exertion Gastrointestinal Gastrointestinal: Denies diarrhea, nausea or vomiting Musculoskeletal Musculoskeletal: Denies limited range of motion Integumentary Integumentary: Reports systems reviewed and no addt'l complaints, except as documented Neurologic Neurologic: Reports systems reviewed and no addt'l complaints, except as documented Psychiatric Psychiatric: Reports systems reviewed and no addt'l complaints, except as documented Endocrine Endocrinology: Reports systems reviewed and no addt'l complaints, except as documented Hematologic/Lymphati c Hematologic/Lymphati c: Reports systems reviewed and no addt'l complaints, except as documented Allergic/Immunologic Allergic/Immunologic : Reports systems reviewed and no addt'l complaints, except as documented Physical Exam Const alert and oriented x3 General Appearance: cooperative Orientation / Consciousness: awake, oriented to person, oriented to place and oriented to time Exam Limitations: no limitations HEENT normocephalic Head and Scalp: normal to inspection, normocephalic and atraumatic Face and Sinus: normal facial exam Eyes General Eye: normal appearance of both eyes Neck full ROM Chest Chest: symmetrical chest wall rise Resp normal respiratory effort and normal air movement Auscultation: clear to auscultation bilaterally Cardio regular rate, regular rhythm, S1 normal heart sound, S2 normal heart sound, no murmurs, no rub, no gallops and no clicks GI normal to inspection, nondistended, normoactive bowel sounds and non-tender GI Narrative: Right sided mid quadrant pain. Rebound tenderness appearance of the vagina normal Bladder / Kidney Exam: no CVA tenderness Back/Spine normal ROM Extremity normal to inspection and full ROM Skin no rashes or lesions noted Neuro oriented x3 and moves all extremities Sensorium / Orientation: awake, alert and oriented to person Motor Exam: clonus absent Deep Tendon Reflexes: Rt Patellar (L4): 2+ and Lt Patellar (L4): 2+ Assessment Plan (1) Abdominal pain: QUALIFIERS: Abdominal location: lower abdomen, unspecified Qualified Code(s): R10.30 - Lower abdominal pain, unspecified (2) 35 weeks gestation of : (3) Rebound abdominal tenderness: COMMENT: Right mid quadrant PLAN: Plan 1) Will admit for observation at this time 2) Consult medicine in AM for possible additional imaging. 3) Labs reviewed, no signs of preeclampsia 4) Abdomen/Pelvis CT reviewed and appendix not visualize. 5) NPO 6) Zofran for nausea (more content not included)... Normal [facility] OB Triage Physician Note [facility] Medical Records Department [address] [place] [address] OB Triage Physician Note 10/12/24 0439 MR#: [id number] Acct: [id number] Name: ZAIN ROSE GALINDO Rep #: [id number] : 2005 19 From: Peggy Cedillo CNM PCP: Dr. Kuldeep Khan MD Status:DEP CLI Y Location: [facility] HPI - General HPI Narrative ZAIN ROSE, is a 19 F who presents 35w1d presents for possible labor and abdominal pain. Presented with contractions and increased RUQ pain. Unable to get comfortable in bed. No vaginal bleeding, fluid leakage. Maternal Data Information BOGDAN Calculator Estimated Delivery Date Method Current WG Current Estimate 11/22/24 Manual 34w 1d PFSH PFSH Medical History ADHD Home Medications ???Medication ???Instructions ???Recorded ???Last Taken ???Type vit no.95-ferrous 1 tab PO DAILY 08/24/24 10/10/24 H istory fumarate 28 mg-folic acid 800 mcg tablet () acetaminophen 500 mg tablet 500 mg PO Q6H PRN pain 10/10/24 History progesterone micronized 200 mg 200 mg vaginal DAILY 10/10/2409/20 History capsule pantoprazole 40 mg tablet,delayed 40 mg PO DAILY 10/12/24 Unknown H istory release Allergy/AdvReac Type Severity Reaction Status Date / Time No Known Allergies Allergy Verified 10/12/24 01:05 Social History Smoking Status: Never smoker NST FHR Rate Baby A Baseline: 115 Variability:: Moderate Accelerations:: 15 x 15 Decelerations:: Variable NST Reactive:: Yes Uterine Activity:: Irregular Assessment Plan (1) False labor: (2) Abdominal pain: (3) 35 weeks gestation of : PLAN: Plan 1) Morphine and vistaril given and no relief. Due to increased pain and rule out of labor, to ED for further evaluation 2) notified. 10/12/24 0442 Date Peggy Cedillo [facility] Cosigner Signature (if applicable): Date _ CC: [facility] Peggy Cedillo; Dr. Kuldeep Khan MD Signed Normal [facility] Uric Acidon 10-12-2024 URIC 3.6 mg/dL Normal 2.6-6.0 [facility] Comment on above: Result Comment: The drugs N-Acetylcysteine and Metamizole may falsely depress this assay. Performed By: #### L 100.0100 #### [facility] [address] [place], [address] Urinalysis, Completeon 10-12 BACTERIA Normal None Seen [facility] Comment on above: Order Comment: MOODY CROWELL TO SPECIFY Result Comment: Mayra gould via OM: Ordered Performed By: #### L 100.0100 #### [facility] [address] [place], [address] BILIRUBIN URINE Normal Negative [facility] Comment on above: Order Comment: MOODY CROWELL TO SPECIFY Result Comment: Mayra gould via OM: Ordered Performed By: #### L 100.0100 #### [facility] [address] [place], [address] Clarity (U) Normal Clear [facility] Comment on above: Order Comment: MOODY CROWELL TO SPECIFY Result Comment: Canc elled via OM: MD Ordered Performed By: #### L 100.0100 #### [facility] [address] [place], [address] Color (U) Normal Yellow [facility] Comment on above: Order Comment: MOODY CTOR TO SPECIFY Result Comment: Canc elled via OM: MD Ordered Performed By: #### L 100.0100 #### [facility] [address] [place], [address] EPI,SQUAMOUS Normal 5-10 [facility] Comment on above: Order Comment: MOODY CTOR TO SPECIFY Result Comment: Canc elled via OM: MD Ordered Performed By: #### L 100.0100 #### [facility] [address] [place], [address] GLUCOSE, UR Normal Normal [facility] Comment on above: Order Comment: MOODY CTOR TO SPECIFY Result Comment: Canc elled via OM: MD Ordered Performed By: #### L 100.0100 #### [facility] [address] [place], [address] KETONE UR Normal Negative [facility] Comment on above: Order Comment: MOODY CTOR TO SPECIFY Result Comment: Canc elled via OM: MD Ordered Performed By: #### L 100.0100 #### [facility] [address] [place], [address] LEUK ESTERASE Normal Negative [facility] Comment on above: Order Comment: MOODY CTOR TO SPECIFY Result Comment: Canc elled via OM: MD Ordered Performed By: #### L 100.0100 #### [facility] [address] [place], [address] Mucus Ql (Urine sed) Normal [facility] Comment on above: Order Comment: MOODY CTOR TO SPECIFY Result Comment: Canc elled via OM: MD Ordered Performed By: #### L 100.0100 #### [facility] [address] [place], [address] Nitrite Ql (U) Normal Negative [facility] Comment on above: Order Comment: MOODY CTOR TO SPECIFY Result Comment: Canc elled via OM: MD Ordered Performed By: #### L 100.0100 #### [facility] [address] [place], [address] OCCULT BLOOD-UR Normal Negative [facility] Comment on above: Order Comment: MOODY CTOR TO SPECIFY Result Comment: Canc elled via OM: MD Ordered Performed By: #### L 100.0100 #### [facility] [address] [place], [address] pH UR Normal 5.0 - 8.0 [facility] Comment on above: Order Comment: MOODY CTOR TO SPECIFY Result Comment: Canc elled via OM: MD Ordered Performed By: #### L 100.0100 #### [facility] [address] [place], [address] PROT DIPSTX Normal Negative [facility] Comment on above: Order Comment: MOODY CTOR TO SPECIFY Result Comment: Canc elled via OM: MD Ordered Performed By: #### L 100.0100 #### [facility] [address] [place], [address] RBC Normal 0-5 [facility] Comment on above: Order Comment: MOODY CTOR TO SPECIFY Result Comment: Canc elled via OM: MD Ordered Performed By: #### L 100.0100 #### [facility] [address] [place], [address] SP.GR. DIPSTX Normal 1.002-1.030 [facility] Comment on above: Order Comment: MOODY CTOR TO SPECIFY Result Comment: Canc elled via OM: MD Ordered Performed By: #### L 100.0100 #### [facility] [address] [place], [address] UR Preservative Normal [facility] Comment on above: Order Comment: COLLE CTOR TO SPECIFY Result Comment: Canc elled via OM: MD Ordered Performed By: #### L 100.0100 #### [facility] [address] [place], [address] UROBILI Normal Normal [facility] Comment on above: Order Comment: COLLE CTOR TO SPECIFY Result Comment: Canc elled via OM: MD Ordered Performed By: #### L 100.0100 #### [facility] [address] [place], [address] WBC Normal 0-5 [facility] Comment on above: Order Comment: COLLE CTOR TO SPECIFY Result Comment: Canc elled via OM: MD Ordered Performed By: #### L 100.0100 #### [facility] [address] [place], [address] Urine Cultureon 10-12-2024 URC Mixed Gram Positive Organisms [place] Count 1000-10,000 MIXC Mixed contaminants. Submit a new specimen if indicated. Normal [facility] Comment on above: Performed By: #### M 100.2200 #### [facility] [address] [place], [address] (ROM) Rupture Of Membraneson 10-11-2024 ROM Negative Normal Negative [facility] Comment on above: Result Comment: Amni otic fluid not present indicates No Rupture of Membranes at time of specimen collection. Performed By: #### L 100.0100 #### [facility] [address] [place], [address] ROM Negative Normal Negative [facility] Comment on above: Result Comment: Amni otic fluid not present indicates No Rupture of Membranes at time of specimen collection. Performed By: #### L 400.0001 #### [facility] [address] [place], [address] Basic Metabolic Profile (BMP )on 10-11-2024 BUN/CRE 9.4 RATIO Low 10-20 [facility] Comment on above: Performed By: #### M 100.678 #### [facility] [address] [place], [address] CA,Total 8.8 mg/dL Normal 8.5-10.1 [facility] Comment on above: Performed By: #### M 100.678 #### [facility] [address] [place], [address] Chloride [Moles/Vol] 110 mmol/L High 98-107 [facility] Comment on above: Performed By: #### M 100.678 #### [facility] [address] [place], [address] CO2 [Moles/Vol] 21.0 mmol/L Normal 21.0-32.0 [facility] Comment on above: Performed By: #### M 100.678 #### [facility] [address] [place], [address] Creatinine [Mass/Vol] 0.42 mg/dL Low 0.55-1.02 [facility] Comment on above: Result Comment: The validity of the calculated GFR GFRAA in patients over 70 years has not been determined. Clinical correlation is essential. Performed By: #### M 100.678 #### [facility] [address] [place], [address] ECRCL 219.01 ml/min Normal [facility] Comment on above: Performed By: #### M 100.678 #### [facility] [address] [place], [address] EST GFR - AA 246 mL/min Normal >60 [facility] Comment on above: Result Comment: Afri can Bahamian GFR Calc Performed By: #### M 100.678 #### [facility] [address] [place], [address] GAP 8 Normal 5-15 [facility] Comment on above: Performed By: #### M 100.678 #### [facility] [address] [place], [address] GFR/1.73 sq M.predicted among non-blacks MDRD (S/P/Bld) [Vol rate/Area] 203 mL/min/{1.73_m2} Normal >60 [facility] Comment on above: Result Comment: Non- GFR Calc Performed By: #### M 100.678 #### [facility] [address] [place], [address] Glucose [Mass/Vol] 87 mg/dL Normal 74-106 [facility] Comment on above: Performed By: #### M 100.678 #### [facility] [address] [place], [address] Potassium [Moles/Vol] 3.5 mmol/L Normal 3.5-5.1 [facility] Comment on above: Performed By: #### M 100.678 #### [facility] [address] [place], [address] Sodium [Moles/Vol] 139 mmol/L Normal 136-145 [facility] Comment on above: Performed By: #### M 100.678 #### [facility] [address] [place], [address] Urea nitrogen [Mass/Vol] 4 mg/dL Low 7-18 [facility] Comment on above: Performed By: #### M 100.678 #### [facility] [address] [place], [address] CBC W/Diff, Automatedon 02-2 -2024 Absolute Lymph 2.13 X10 3/uL Normal 0.83-4.51 [facility] Comment on above: Performed By: #### L 400.0001 #### [facility] [address] [place], [address] Absolute Neut 12.4 X10 3/uL High 2.0-7.7 [facility] Comment on above: Performed By: #### L 400.0001 #### [facility] [address] [place], [address] Basophils/100 WBC (Bld) 0.6 % Normal 0-1 [facility] Comment on above: Performed By: #### L 400.0001 #### [facility] [address] [place], [address] Eosinophils/100 WBC (Bld) 0.5 % Normal 0-5 [facility] Comment on above: Performed By: #### L 400.0001 #### [facility] [address] [place], [address] Erythrocyte distribution width (RBC) [Ratio] 12.4 % Normal 11.6-14.6 [facility] Comment on above: Performed By: #### L 400.0001 #### [facility] [address] [place], [address] Hematocrit (Bld) [Volume fraction] 35.3 % Low 37-47 [facility] Comment on above: Performed By: #### L 400.0001 #### [facility] [address] [place], [address] Hemoglobin (Bld) [Mass/Vol] 11.8 g/dL Low 12.0-15.0 [facility] Comment on above: Performed By: #### L 400.0001 #### [facility] [address] [place], [address] IG% 1.400 High 0.0-0.9 [facility] Comment on above: Result Comment: IG% - Immature Granulocytes (promyelocytes, myelocytes and metamyelocytes) > 1% indicates that a LEFT SHIFT is Present. Performed By: #### L 400.0001 #### [facility] [address] [place], [address] Lymphocytes/100 WBC (Bld) 13.3 % Low 19-41 [facility] Comment on above: Performed By: #### L 400.0001 #### [facility] [address] [place], [address] MCH (RBC) [Entitic mass] 28.6 pg Normal 27.0-32.0 [facility] Comment on above: Performed By: #### L 400.0001 #### [facility] [address] [place], [address] MCHC (RBC) [Mass/Vol] 33.4 g/dL Normal 32-36 [facility] Comment on above: Performed By: #### L 400.0001 #### [facility] [address] [place], [address] MCV (RBC) [Entitic vol] 85.5 fL Normal 81-99 [facility] Comment on above: Performed By: #### L 400.0001 #### [facility] [address] [place], [address] Monocytes/100 WBC (Bld) 6.9 % Normal 0-10 [facility] Comment on above: Performed By: #### L 400.0001 #### [facility] [address] [place], [address] Neutrophils/100 WBC (Bld) 77.3 % High 47-70 [facility] Comment on above: Performed By: #### L 400.0001 #### [facility] [address] [place], [address] Nucleated RBC (Bld) [#/Vol] 0 10*3/uL Normal 0-5 [facility] Comment on above: Performed By: #### L 400.0001 #### [facility] [address] [place], [address] Platelet mean volume (Bld) [Entitic vol] 10.9 fL Normal 6.2-12.0 [facility] Comment on above: Performed By: #### L 400.0001 #### [facility] [address] [place], [address] Platelets (Bld) [#/Vol] 222 10*3/uL Normal 150-450 [facility] Comment on above: Performed By: #### L 400.0001 #### [facility] [address] [place], [address] RBC (Bld) [#/Vol] 4.13 10*6/uL Low 4.2-5.4 [facility] Comment on above: Performed By: #### L 400.0001 #### [facility] [address] [place], [address] RDW SD 38.6 fl Normal 35.1-43.9 [facility] Comment on above: Performed By: #### L 400.0001 #### [facility] [address] [place], [address] WBC (Bld) [#/Vol] 16.1 10*3/uL High 4.4-11.0 [facility] Comment on above: Performed By: #### L 400.0001 #### [facility] [address] [place], [address] Absolute Neut Normal 2.0-7.7 [facility] Comment on above: Result Comment: DUPL ICATE Performed By: #### L 400.0001 #### [facility] [address] [place], [address] HCT Normal 37-47 [facility] Comment on above: Result Comment: DUPL ICATE Performed By: #### L 400.0001 #### [facility] [address] [place], [address] HGB Normal 12.0-15.0 [facility] Comment on above: Result Comment: DUPL ICATE Performed By: #### L 400.0001 #### [facility] [address] [place], [address] MCH Normal 27.0-32.0 [facility] Comment on above: Result Comment: DUPL ICATE Performed By: #### L 400.0001 #### [facility] [address] [place], [address] MCHC Normal 32-36 [facility] Comment on above: Result Comment: DUPL ICATE Performed By: #### L 400.0001 #### [facility] [address] [place], [address] MCV Normal 81-99 [facility] Comment on above: Result Comment: DUPL ICATE Performed By: #### L 400.0001 #### [facility] [address] [place], [address] NEUT% Normal 47-70 [facility] Comment on above: Result Comment: DUPL ICATE Performed By: #### L 400.0001 #### [facility] [address] [place], [address] PLT Normal 150-450 [facility] Comment on above: Result Comment: DUPL ICATE Performed By: #### L 400.0001 #### [facility] [address] [place], [address] RBC Normal 4.2-5.4 [facility] Comment on above: Result Comment: DUPL ICATE Performed By: #### L 400.0001 #### [facility] [address] [place], [address] RDW CV Normal 11.6-14.6 [facility] Comment on above: Result Comment: DUPL ICATE Performed By: #### L 400.0001 #### [facility] [address] [place], [address] RDW SD Normal 35.1-43.9 [facility] Comment on above: Result Comment: DUPL ICATE Performed By: #### L 400.0001 #### [facility] [address] [place], [address] WBC Normal 4.4-11.0 [facility] Comment on above: Result Comment: DUPL ICATE Performed By: #### L 400.0001 #### [facility] [address] [place], [address] Group B Strep DNA By PCRon 0 10-11-2024 GBS DNA ASSAY Positive Abnormal Negative [facility] Comment on above: Result Comment: Peni cillin is the recommended antibiotic for the treatment of Group B Streptococcal disease. In case of penicillin allergy, susceptibility testing for Clindamycin and Erythromycin is suggested by request. Performed By: #### L 400.0001 #### [facility] [address] [place], [address] L509.8000on 10-11-2024 Syphilis Abs Non-Reactive Normal [facility] Comment on above: Performed By: #### L 100.0100 #### [facility] [address] [place], [place], [address] OB Triage Physician Noteon 0 10-11-2024 OB Triage Physician Note [facility] Medical Records Department [address] [facility] [place] [address] OB Triage Physician Note 10/11/24 1135 MR#: [id number] Acct: [id number] Name: ZAIN ROSE GALINDO Rep #: [id number] : 2005 19 From: Peggy Cedillo CNM PCP: Dr. Kuldeep Khan MD Status:REG CLI Y Location: [id number] HPI - General HPI Narrative ZAIN ROSE, is a 19 F who presents with irregular contractions. Presented last night at 34w6d and 35 weeks today. No leakage of fluid or vaginal bleeding. Good movement. Maternal Data Information BOGDAN Calculator Estimated Delivery Date Method Current WG Current Estimate 11/22/24 Manual 34w 0d PFSH PFSH Medical History ADHD Home Medications ???Medication ???Instructions ???Recorded ???Last Taken ???Type ondansetron HCl 4 mg tablet 4 mg PO DAILY 08/03/24 10/09/24 22 :00 History pantoprazole 20 mg tablet,delayed 20 mg PO DAILY 08/21/24 10/09/24 22:00 History release vit no.95-ferrous 1 tab PO DAILY 08/24/24 10/09/24 2 2:00 History fumarate 28 mg-folic acid 800 mcg tablet () acetaminophen 500 mg tablet 500 mg PO Q6H PRN pain 10/10/24 12:00 History progesterone micronized 200 mg 200 mg vaginal DAILY 10/10/2409/20 22:00 History capsule Allergy/AdvReac Type Severity Reaction Status Date / Time No Known Allergies Allergy Verified 10/10/24 21:41 Surgical History no surgical history Social History Smoking Status: Never smoker ROS Constitutional Constitutional: Reports systems reviewed and no addt'l complaints, except as documented; Denies headache(s) Eyes Eyes: Denies acute decrease in peripheral vision, blurry vision or change in vision ENT HEENT: Reports systems reviewed and no addt'l complaints, except as documented Cardiovascular Cardiovascular: Denies chest pain or dizziness Respiratory/Chest Respiratory/Chest: Denies cough, dyspnea, dyspnea on exertion, shortness of breath at rest or shortness of breath with exertion Gastrointestinal Gastrointestinal: Denies abdominal pain, diarrhea, nausea or vomiting Genitourinary Genitourinary: Denies abdominal discomfort Musculoskeletal Musculoskeletal: Denies limited range of motion Integumentary Integumentary: Reports systems reviewed and no addt'l complaints, except as documented Neurologic Neurologic: Reports systems reviewed and no addt'l complaints, except as documented Psychiatric Psychiatric: Reports systems reviewed and no addt'l complaints, except as documented Endocrine Endocrinology: Reports systems reviewed and no addt'l complaints, except as documented Hematologic/Lymphati c Hematologic/Lymphati c: Reports systems reviewed and no addt'l complaints, except as documented Allergic/Immunologic Allergic/Immunologic : Reports systems reviewed and no addt'l complaints, except as documented Physical Exam Const alert and oriented x3 General Appearance: cooperative Orientation / Consciousness: awake, oriented to person, oriented to place and oriented to time Exam Limitations: no limitations HEENT normocephalic Head and Scalp: normal to inspection, normocephalic and atraumatic Face and Sinus: normal facial exam Eyes General Eye: normal appearance of both eyes Neck full ROM Chest Chest: symmetrical chest wall rise Resp normal respiratory effort and normal air movement Auscultation: clear to auscultation bilaterally Cardio regular rate, regular rhythm, S1 normal heart sound, S2 normal heart sound, no murmurs, no rub, no gallops and no clicks GI normal to inspection, nondistended, normoactive bowel sounds and non-tender appearance of the vagina normal Bladder / Kidney Exam: no CVA tenderness Back/Spine normal ROM Extremity normal to inspection and full ROM Skin no rashes or lesions noted Neuro oriented x3 and moves all extremities Sensorium / Orientation: awake, alert and oriented to person NST FHR Rate Baby A Baseline: 135 Variability:: Moderate Accelerations:: 15 x 15 Decelerations:: None NST Reactive:: Yes Uterine Activity:: Irregular every 2-5 minutes, mild Assessment Plan (1) 35 weeks gestation of : (2) False labor: PLAN: Plan 1) IV fluid bolus with 1L LR x2 2) Zofran for nausea 3) ROM negative 4) Urine culture 5) D/C home. notified of above assessment and plan. 10/11/24 1138 Date Peggy Cedillo CNM Cosigndarshana Signature (if applicable): Date _ CC: ESTELLA Cedillo; Dr. Kuldeep Khan MD Signed Normal [facility] Type AND Screenon 10-11-2024 Ab SCREEN GEL Negative Normal [facility] Comment on above: Order Comment: CLEAN CATCH Performed By: #### L 400.0001 #### [facility] [address] [place], [address] ABO and Rh group Nom (Bld) Blood group O Rh(D) positive Normal [facility] Comment on above: Order Comment: CLEAN CATCH Performed By: #### L 400.0001 #### [facility] [address] [place], [address] Urinalysis, Routine (Dipstic k)on 10-11-2024 BILIRUBIN URINE Negative Normal Negative [facility] Comment on above: Order Comment: COLLE CTOR TO SPECIFY Performed By: #### M 100.678 #### [facility] [address] [place], [address] Clarity (U) Sl. Cloudy Normal Clear [facility] Comment on above: Order Comment: COLLE CTOR TO SPECIFY Performed By: #### M 100.678 #### [facility] [address] [place], [address] Color (U) Yellow Normal Yellow [facility] Comment on above: Order Comment: COLLE CTOR TO SPECIFY Performed By: #### M 100.678 #### [facility] [address] [place], [address] GLUCOSE, UR Normal Normal Normal [facility] Comment on above: Order Comment: COLLE CTOR TO SPECIFY Performed By: #### M 100.678 #### [facility] [address] [place], [address] KETONE UR Negative Normal Negative [facility] Comment on above: Order Comment: COLLE CTOR TO SPECIFY Performed By: #### M 100.678 #### [facility] [address] [place], [address] LEUK ESTERASE 500 /ul Abnormal Negative [facility] Comment on above: Order Comment: COLLE CTOR TO SPECIFY Performed By: #### M 100.678 #### [facility] [address] [place], [address] Nitrite Ql (U) Negative Normal Negative [facility] Comment on above: Order Comment: MOODY CTOR TO SPECIFY Performed By: #### M 100.678 #### [facility] [address] [place], [address] OCCULT BLOOD-UR 150 /ul Abnormal Negative [facility] Comment on above: Order Comment: MOODY CTOR TO SPECIFY Performed By: #### M 100.678 #### [facility] [address] [place], [address] pH UR 8.0 Normal 5.0 - 8.0 [facility] Comment on above: Order Comment: MOODY CTOR TO SPECIFY Performed By: #### M 100.678 #### [facility] [address] [place], [address] PROT DIPSTX Negative Normal Negative [facility] Comment on above: Order Comment: MOODY CTOR TO SPECIFY Performed By: #### M 100.678 #### [facility] [address] [place], [address] SP.GR. DIPSTX 1.015 Normal 1.002-1.030 [facility] Comment on above: Order Comment: MOODY CTOR TO SPECIFY Performed By: #### M 100.678 #### [facility] [address] [place], [address] UROBILI Normal Normal Normal [facility] Comment on above: Order Comment: MOODY CTOR TO SPECIFY Performed By: #### M 100.678 #### [facility] [address] [place], [address] Urinalysis, Routine (Dipstic k)on 10-10-2024 BILIRUBIN URINE 1 mg/dL Abnormal Negative [facility] Comment on above: Order Comment: MOODY CTOR TO SPECIFY Result Comment: COLO R OF URINE MAY AFFECT DIPSTICK RESULTS. Performed By: #### M 100.678 #### [facility] [address] [place], [address] Clarity (U) Sl. Cloudy Normal Clear [facility] Comment on above: Order Comment: MOODY CTOR TO SPECIFY Performed By: #### M 100.678 #### [facility] [address] [place], [address] Color (U) Yellow Normal Yellow [facility] Comment on above: Order Comment: MOODY CTOR TO SPECIFY Performed By: #### M 100.678 #### [facility] [address] [place], [address] GLUCOSE, UR Normal Normal Normal [facility] Comment on above: Order Comment: MOODY CTOR TO SPECIFY Performed By: #### M 100.678 #### [facility] [address] [place], [address] KETONE UR Negative Normal Negative [facility] Comment on above: Order Comment: MOODY CTOR TO SPECIFY Performed By: #### M 100.678 #### [facility] [address] [place], [address] LEUK ESTERASE 500 /ul Abnormal Negative [facility] Comment on above: Order Comment: MOODY CTOR TO SPECIFY Performed By: #### M 100.678 #### [facility] [address] [place], [address] Nitrite Ql (U) Negative Normal Negative [facility] Comment on above: Order Comment: MOODY CTOR TO SPECIFY Performed By: #### M 100.678 #### [facility] [address] [place], [address] OCCULT BLOOD-UR 10 /ul Abnormal Negative [facility] Comment on above: Order Comment: MOODY CTOR TO SPECIFY Performed By: #### M 100.678 #### [facility] [address] [place], [address] pH UR 6.0 Normal 5.0 - 8.0 [facility] Comment on above: Order Comment: COLLE CTOR TO SPECIFY Performed By: #### M 100.678 #### [facility] [address] [place], [address] PROT DIPSTX 30 mg/dl Abnormal Negative [facility] Comment on above: Order Comment: MOODY CTOR TO SPECIFY Performed By: #### M 100.678 #### [facility] [address] [place], [address] SP.GR. DIPSTX 1.025 Normal 1.002-1.030 [facility] Comment on above: Order Comment: MOODY CTOR TO SPECIFY Performed By: #### M 100.678 #### [facility] [address] [place], [address] UROBILI 4 mg/dl Abnormal Normal [facility] Comment on above: Order Comment: COLLE CTOR TO SPECIFY Performed By: #### M 100.678 #### [facility] [address] [place], [address] [id number] 09-29-2024 [id number] O ID: [id number] Author: PEGGY CARDENAS PT Service: ? Author Type: Physical Therapist Type: [id number] Filed: 09/29/2024 17:07 Note Text: [facility] Physical Therapy Plan of Care Certification Patient Name: Zain Rose : 2005 [facility] #: [id number] Date: 09/29/2024 To: Belle Carrillo MD From Therapist: Peggy Cardenas PT RE: Patient Certification/ Recertification Your review, approval and electronic signature are required in order to comply with Payor: [employer] / Plan: [employer] OAP / Product Type: Open Access / regulations. The identified Physical Therapy PLAN OF CARE for the patient is as follows: R07.81 Rib pain (primary encounter diagnosis) Z3A.30 30 weeks gestation of O09.93 Supervision of high risk in third trimester PLAN OF CARE: Assessment: Zain Rose presents with diagnosis of rib pain that interferes with reaching behind back, reaching overhead, use hand with arm at shoulder level . The patient presents with impairments in ADL's, flexibility, independence in exercise, joint mobility, overall function, patient reported outcome measures, range of motion, strength, and symptom management. PROMIS? (Patient-Reported Outcomes Measurement Information System) scores were reviewed and identified as a rehabilitation concern. Prognosis for therapy is Good due to: within-session changes . The patient will benefit from skilled therapy services to meet the goals established for this plan of care as noted below. Goals for Episode of Care: established 09/29/24 [place] in home exercise program. Patient will decrease pain rating by 2 points to meet minimal clinical important difference for numeric pain rating scale. Patient will increase active ROM of thoracic spine to minimal to no limitation without increased pain to allow pt to to improve performance of ADLs. Perform crafting with decreased report of symptoms/pain in 6 weeks. Patient Goals: ruduce R side Rib pain Time Frame for Goals and Treatment : 11/10/24 Planned Interventions, Frequency, and Duration: Current Frequency: 1x/week Duration: 6 weeks Total Number of Visits Planned: 6 Planned Treatment Interventions: Therapeutic exercise (63416), Neuromuscular re-education (46501), Manual therapy (98082), Therapeutic activities (67772), Self-prison management (34619), Gait Training (17727) PLAN FOR NEXT VISIT: assess symptom response to thoracic stretching and scapular stabilization strengthening AROM Patient demonstrates good understanding of plan of care and treatment. The above goals and plan of care were discussed and agreed upon by patient/family. For further details regarding this patient refer to the Physical Therapy electronically documented visit dated 09/29/2024. Provider Attestation I have reviewed the treatment plan for Zain Rose, [facility]# [id number] for the period of 09/29/24 -- 11/10/24, established on 09/29/2024. Signature certifies the need for therapy services. Normal [facility] CNTHERAPYon 09-29-2024 CNTHERAPY OT/PT/Speech Visit (PTWS) ZAIN ROSE ([id number]) 5 F Date Time Provider Department 09/29/24 3:45 PM PEGGY CARDENAS Date Time Provider Department Center 09/29/2024 3:45 PM [id number]-RPEGGY CARDENAS [place] Reason for Visit: PT Carina [[id number]] Primary Visit Diagnosis:Rib pain [R07.81] Other Visit Diagnoses:30 weeks gestation of [Z3A.30] Supervision of high risk in third trimester [O09.93] Allergies As of Date: 09/29/2024 (No Known Allergies) Date Reviewed: 09/23/2024 Reviewed by: Ivanna García MA - Fully Assessed Prescriptions as of 09/29/2024 - ondansetron (ZOFRAN) 4 mg tablet Take 1 tablet by mouth every 8 hours as needed for nausea/vomiting. - pantoprazole DR (PROTONIX) 40 mg tablet Take 1 tablet by mouth once daily. - progesterone micronized (PROMETRIUM) 200 mg capsule Use 1 capsule vaginally once daily. - PNV/iron,carb/docusa t/folic ac (PRENA-CAP ORAL) Take 1 tablet by mouth once daily. Additional Progress Notes VISIT DATE: 03/27/2024 GA: 6w --------- Toby Rome APRN.HOG BUYER 03/27/2024 11:40 AM Addendum Bioinformatics Specialist offered: Patient declines. INITIAL OB ASSESSMENT HPI: Zain is a 19 year old No obstetric history on file. White here to establish Obstetrical Care. Patient's last menstrual period was 09/30/2023 (approximate). from OB Dating Form. was unplanned but accepted Complaints: Abdominal pain (mild light cramping) OB History No obstetric history on file. Previous history: Prior : never History of 4th degree laceration: NA History of shoulder dystocia: No History of Hypertensive disorders including pre-eclampsia or gestational hypertension: No History of gestational diabetes: No Patient's Risk Screening for delivery: Have you had a prior menezes between 20w and 36w6d? No How many pregnancies have you had before? 0 Did you have a previous baby with a GBS Infection? No Please select all that apply for any prior : N/A MEDICAL/PSYCHOSOCIAL HISTORY: History of hemorrhage or bleeding concerns: No Thyroid Disease: No History of chronic hypertension: No History of pre-existing diabetes: No No results found for: ABORHD No weight on file for this encounter. Last Pap: History of abnormal pap: No Prior treatment for cervical dysplasia: none. Last HPV: History of STDs: None Partner History of STDs: None Did you have a partner with Herpes? No Tobacco use: No E-Cigarette/Vaping Use: No Caffeine use: Yes, 60-80 mg per day Drug use: No Alcohol use: No Multivitamin with Folic acid: Yes Would refuse blood transfusion if medically necessary: No Social Needs: How often does this describe you? I don't have enough money to pay my bills: Sometimes Within the past 12 months, have you worried that your food would run out before you had money to buy more? Sometimes In the past 12 months, has lack of reliable transportation kept you from going to medical appointments or work, or from getting things needed for daily living? Never In the past 12 months, have you had any concerns about having a place to live, or about the condition or quality of your housing? Never Would you like more information on any of the following (please check all that apply)? Not interested Social History: Do you have any history of depression, anxiety, PTSD, or other mood problems? Yes Do you have a history of abuse or trauma that may impact your experience? No Are you currently employed? Yes Depression/Anxiety Screening: Admits to anxiety. OB Depression and Anxiety Screening- This Encounter (since 03/26/2024) Over the past 2 weeks have you felt down, depressed, or hopeless? Negative Over the past two weeks, have you felt little interest or pleasure in doing things?? Negative Feeling nervous, anxious or on edge 1-Several days Not being able to stop or control worrying 1-Several days Anxiety Pre-Screening Total (If >/= 3 additional questions will be reviewed) 2 Genetic Screening: Partner present: No Patient verbalized knowledge of partner family health history: Yes Do you or your partner have any personal or family history of defects not previously discussed: No Do you have history of a complicated by anomaly, genetic condition, or demise: No OB Risk Screening: Completed, no positive findings documented. Marital Status:Co-habitating Partner: Name: Enzo Age: 20 Occupation: [employer] Gender: Male PAST MEDICAL HISTORY No date: NEGATIVE MEDICAL HISTORY Comment: normal color vision age 2 years: past medical history of Comment: dermatoid - by her right eye PAST SURGICAL HISTORY 10/07/2023: NEXPLANON REMOVAL; Left No date: PAST SURGICAL HISTORY OF Comment: [place] (more content not included)... Normal [facility] THERAPY NTon 09-29-2024 THERAPY NT HNO ID: [id number] Author: PEGGY CARDENAS, PT Service: ? Author Type: Physical Therapist Type: Therapy (PT/OT/Speech/Resp) Filed: 09/29/2024 16:04 Note Text: Program_ID:[id number] Access Code: [email or web address] URL: [email or web address] Date: 09-29-2024 Prepared By: Peggy Cardenas Program Notes Exercises - Standing Thoracic Open Book at Wall - 1-2 x daily - 7 x weekly - 2 sets - 15 reps - Standing Shoulder W at Wall - 1-2 x daily - 7 x weekly - 2 sets - 15 reps - Scapular Protraction at Wall - 1-2 x daily - 7 x weekly - 2 sets - 5 reps - Seated Scapular Retraction - 1-2 x daily - 7 x weekly - 2 sets - 15 reps Normal [facility] Bacteria Ur Culton 5 Bacteria identified Cx Nom (U) ORGANISM ID: 1 50,000-<100,000 CFU/ml Mixed microbiota No further workup. Mixed microbiota can be due to???urine???contami nation with skin bacteria at time of collection or presence of a long-term urinary catheter. If a new culture is needed, please consider re-education of the patient on proper midstream collection technique or straight catheterization for???urine???collec tion. Normal [facility] Comment on above: Performed By: #### 6 30-4 ####[facility] [id number] [facility] [id number] [id number] [place] UA DIP, URINE (POC)on 2024 BILIRUBIN UA (POCT) Negative Negative [facility] CLARITY UA (POCT) Clear [facility] COLOR UA (POCT) Yellow [facility] GLUCOSE UA (POCT) Negative Negative mg/dL [facility] Hemoglobin Ql (U) Negative Negative [facility] Interpretation and review of laboratory results Abnormal [facility] KETONE UA (POCT) Negative Negative mg/dL [facility] LEUKOCYTES UA (POCT) Small Abnormal Negative [facility] NITRITE UA (POCT) Negative Negative [facility] PH UA (POCT) 7.0 4.5 - 8.0 [facility] Protein Ql (U) Trace Abnormal Negative mg/dL [facility] SPECIFIC GRAVITY UA (POCT) 1.025 1.005 - 1.030 [facility] UROBILINOGEN UA (POCT) 1.0 Normal E.U./d L [facility] Location:[facility], [address], [place], [address] [facility] POINT OF CARE [facility] URINE OB DIP B/Oon Glucose Ql (U) Negative Neg mg/dL [facility] Interpretation and review of laboratory results Normal [facility] Protein.monoclonal (U) [Mass/Vol] trace Neg mg/dL [facility] Urine Cultureon 09-15-2024 [facility] Mixed Gram Positive Organisms [place] Count 11,000-25,000 MIXC Mixed contaminants. Submit a new specimen if indicated. Normal [facility] Comment on above: Performed By: #### M 100.678 #### [facility] [address] [place], [address] Satish 09-14-2024 LUISN Telephone (OBGYW) ZAIN ROSE ([id number]) 5 F Date Time Provider Department 09/14/24 PEGGY CEDILLO During your visit today, we recorded the following information about you: Alison Yu, BOZENA 09/14/2024 2:31 PM Signed 31w1d Patient states that she has not been able to keep any food/fluids down since last night. So far the sandwich she ate 30 min ago has stayed down. She went to [facility] ER on Saturday for IV hydration. She was given RX for Zofran and has not yet picked it up. Highly encouraged she pick up attendant the RX. Patient was on Zofran pump and was d/c in Jun. Aware she needs to return to ER if it's been 24 hours or more since she last kept something down. Next OB visit is 09/23. Does patient need seen sooner? BOZENA Raymond Jessica, APRN.CNM 09/14/2024 3:25 PM Signed If we can see her tomorrow or Saturday if possible. Thanks, Peggy Cedillo APRN.Matt Lopez RN 09/14/2024 3:38 PM Signed Patient called and appointment scheduled. Matt Lewis RN Allergies As of Date: 09/14/2024 (No Known Allergies) Date Reviewed: 09/08/2024 Reviewed by: Belle Carrillo MD - Fully Assessed Reason for Visit: OB Vomiting [Other] Prescriptions as of 09/14/2024 - pantoprazole DR (PROTONIX) 40 mg tablet Take 1 tablet by mouth once daily. - progesterone micronized (PROMETRIUM) 200 mg capsule Use 1 capsule vaginally once daily. - ondansetron (ZOFRAN) 4 mg tablet Take 4 mg by mouth every 8 hours as needed for nausea/vomiting. - PNV/iron,carb/docusa t/folic ac (PRENA-CAP ORAL) Take 1 tablet by mouth once daily. Problem List As Of Date 09/14/2024 Noted Resolved ADHD (attention deficit hyperactivity disorder)*08/28/2011 with uncertain dates in first trimest*03/27/2024 09/08/2024 Supervision of high risk in second tr*03/27/2024 Family history of deafness [Z82.2] 03/27/2024 Hyperemesis gravidarum [O21.0] 03/27/2024 Heartburn during in third trimester [*03/27/2024 Anxiety during [O99.340, F41.9] 03/27/2024 Depression affecting in second trimes*05/22/2024 Cervix, short (affecting ) [O26.879] 07/13/2024 Threatened labor, third trimester [O47.*08/24/2024 contractions [O47.00] 08/24/2024 Anxiety and depression [F41.9, F32.A] 08/25/2024 Prematurity of fetus [P07.30] 08/25/2024 Encounter Status:Closed by MATT LEWIS on 09/14/24 Normal [facility] CBC W/Diff, Automatedon 08-20 Absolute Lymph 1.31 X10 3/uL Normal 0.83-4.51 [facility] Comment on above: Performed By: #### M 100.2200 #### [facility] [address] [place], [address] Absolute Neut 13.7 X10 3/uL High 2.0-7.7 [facility] Comment on above: Performed By: #### M 100.2200 #### [facility] [address] [place], [address] Basophils/100 WBC (Bld) 0.4 % Normal 0-1 [facility] Comment on above: Performed By: #### M 100.2200 #### [facility] [address] [place], [address] Eosinophils/100 WBC (Bld) 0.2 % Normal 0-5 [facility] Comment on above: Performed By: #### M 100.2200 #### [facility] [address] [place], [address] Erythrocyte distribution width (RBC) [Ratio] 12.9 % Normal 11.6-14.6 [facility] Comment on above: Performed By: #### M 100.2200 #### [facility] [address] [place], [address] Hematocrit (Bld) [Volume fraction] 39.3 % Normal 37-47 [facility] Comment on above: Performed By: #### M 100.2200 #### [facility] [address] [place], [address] Hemoglobin (Bld) [Mass/Vol] 13.0 g/dL Normal 12.0-15.0 [facility] Comment on above: Performed By: #### M 100.2200 #### [facility] [address] [place], [address] IG% 0.900 Normal 0.0-0.9 [facility] Comment on above: Result Comment: IG% - Immature Granulocytes (promyelocytes, myelocytes and metamyelocytes) > 1% indicates that a LEFT SHIFT is Present. Performed By: #### M 100.2200 #### [facility] [address] [place], [address] Lymphocytes/100 WBC (Bld) 8.1 % Low 19-41 [facility] Comment on above: Performed By: #### M 100.2200 #### [facility] [address] [place], [address] MCH (RBC) [Entitic mass] 28.9 pg Normal 27.0-32.0 [facility] Comment on above: Performed By: #### M 100.2200 #### [facility] [address] [place], [address] MCHC (RBC) [Mass/Vol] 33.1 g/dL Normal 32-36 [facility] Comment on above: Performed By: #### M 100.2200 #### [facility] [address] [place], [address] MCV (RBC) [Entitic vol] 87.3 fL Normal 81-99 [facility] Comment on above: Performed By: #### M 100.2200 #### [facility] [address] [place], [address] Monocytes/100 WBC (Bld) 5.2 % Normal 0-10 [facility] Comment on above: Performed By: #### M 100.2200 #### [facility] [address] [place], [address] Neutrophils/100 WBC (Bld) 85.2 % High 47-70 [facility] Comment on above: Performed By: #### M 100.2200 #### [facility] [address] [place], [address] Nucleated RBC (Bld) [#/Vol] 0 10*3/uL Normal 0-5 [facility] Comment on above: Performed By: #### M 100.2200 #### [facility] [address] [place], [address] Platelet mean volume (Bld) [Entitic vol] 10.1 fL Normal 6.2-12.0 [facility] Comment on above: Performed By: #### M 100.2200 #### [facility] [address] [place], [address] Platelets (Bld) [#/Vol] 252 10*3/uL Normal 150-450 [facility] Comment on above: Performed By: #### M 100.2200 #### [facility] [address] [place], [address] RBC (Bld) [#/Vol] 4.50 10*6/uL Normal 4.2-5.4 [facility] Comment on above: Performed By: #### M 100.2200 #### [facility] [address] [place], [address] RDW SD 40.7 fl Normal 35.1-43.9 [facility] Comment on above: Performed By: #### M 100.2200 #### [facility] [address] [place], [address] WBC (Bld) [#/Vol] 16.1 10*3/uL High 4.4-11.0 [facility] Comment on above: Performed By: #### M 100.2200 #### [facility] [address] [place], [address] Comprehensive Metabolic Prof ilon 09-12-2024 Albumin [Mass/Vol] 3.0 g/dL Low 3.2-5.0 [facility] Comment on above: Performed By: #### M 100.2200 #### [facility] [address] [place], [address] Albumin/Globulin [Mass ratio] 0.7 {ratio} Low 0.9-2.4 [facility] Comment on above: Performed By: #### M 100.2200 #### [facility] [address] [place], [address] ALK P 174 U/L High 45-117 [facility] Comment on above: Performed By: #### M 100.2200 #### [facility] [address] [place], [address] ALT [Catalytic activity/Vol] 11 U/L Low 13-56 [facility] Comment on above: Performed By: #### M 100.2200 #### [facility] [address] [place], [address] AST [Catalytic activity/Vol] 11 U/L Low 15-37 [facility] Comment on above: Performed By: #### M 100.2200 #### [facility] [address] [place], [address] Bilirubin [Mass/Vol] 0.50 mg/dL Normal 0.20-1.00 [facility] Comment on above: Result Comment: For patients on eltrombopag therapy, use of Dimension [place] TBIL is not recommended. Performed By: #### M 100.2200 #### [facility] [address] [place], [address] BUN/CRE 14.4 RATIO Normal 10-20 [facility] Comment on above: Performed By: #### M 100.2200 #### [facility] [address] [place], [address] CA,Total 9.3 mg/dL Normal 8.5-10.1 [facility] Comment on above: Performed By: #### M 100.2200 #### [facility] [address] [place], [address] Chloride [Moles/Vol] 107 mmol/L Normal 98-107 [facility] Comment on above: Performed By: #### M 100.2200 #### [facility] [address] [place], [address] CO2 [Moles/Vol] 23.0 mmol/L Normal 21.0-32.0 [facility] Comment on above: Performed By: #### M 100.2200 #### [facility] [address] [place], [address] Creatinine [Mass/Vol] 0.49 mg/dL Low 0.55-1.02 [facility] Comment on above: Result Comment: The validity of the calculated GFR GFRAA in patients over 70 years has not been determined. Clinical correlation is essential. Performed By: #### M 100.2200 #### [facility] [address] [place], [address] ECRCL 172.87 ml/min Normal [facility] Comment on above: Performed By: #### M 100.2200 #### [facility] [address] [place], [address] EST GFR - AA 210 mL/min Normal >60 [facility] Comment on above: Result Comment: Afri can [place] GFR Calc Performed By: #### M 100.2200 #### [facility] [address] [place], [address] GAP 7 Normal 5-15 [facility] Comment on above: Performed By: #### M 100.2200 #### [facility] [address] [place], [address] GFR/1.73 sq M.predicted among non-blacks MDRD (S/P/Bld) [Vol rate/Area] 174 mL/min/{1.73_m2} Normal >60 [facility] Comment on above: Result Comment: Non- GFR Calc Performed By: #### M 100.2200 #### [facility] [address] [place], [address] Globulin (S) [Mass/Vol] 4.1 g/dL Normal 2.2-4.2 [facility] Comment on above: Performed By: #### M 100.2200 #### [facility] [address] [place], [address] Glucose [Mass/Vol] 81 mg/dL Normal 74-106 [facility] Comment on above: Performed By: #### M 100.2200 #### [facility] [address] [place], [address] Potassium [Moles/Vol] 3.7 mmol/L Normal 3.5-5.1 [facility] Comment on above: Performed By: #### M 100.2200 #### [facility] [address] [place], [address] Sodium [Moles/Vol] 137 mmol/L Normal 136-145 [facility] Comment on above: Performed By: #### M 100.2200 #### [facility] [address] [place], [address] T PROT 7.1 g/dL Normal 6.4-8.2 [facility] Comment on above: Performed By: #### M 100.2200 #### [facility] [address] [place], [address] Urea nitrogen [Mass/Vol] 7 mg/dL Normal 7-18 [facility] Comment on above: Performed By: #### M 100.2200 #### [facility] [address] [place], [address] Emergency Department Summary on 09-12-2024 Emergency Department Summary [facility] Medical Records Department [address] [place] [address] Emergency Department Summary 09/12/24 MR#: [id number] Acct: [id number] Name: ZAIN ROSE Rep #: [id number] : 2005 19 From: Mary SHAW PCP: Dr. Kuldeep Khan MD Status:DEP ER Location: ED I did not participate in this patient's care. Herberth HANSEN History of Present Illness Chief Complaint: Nausea/Vomiting Narrative Narrative: 19-year-old female is approximately 31 weeks and states last night she developed malaise and nausea and today has been vomiting throughout the day and unable to keep down fluids. She states she vomited up the Zofran tablet and does not have anymore. She has no abdominal pain or bleeding and is feeling good movement. She states she had hyperemesis gravidarum which improved after the first trimester but then she had labor and has been on bedrest for the last few weeks. She denies fever but states she is felt hot and flushed. [facility] Medical History ADHD Home Medications ???Medication ???Instructions ???Recorded ???Last Taken ???Type promethazine 25 mg tablet 25 mg PO Q6H PRN PRN nausea and 05/26/24 Unknown History vomiting ondansetron HCl 4 mg tablet 4 mg PO DAILY 08/03/24 08/23/24 08:00 History 4 mg pantoprazole 20 mg tablet,delayed 20 mg PO DAILY 08/21/24 08/23/24 16:00 History release 20 mg metronidazole 500 mg tablet 500 mg PO BID #14 tabs 08/22/24 08/23/24 00:00 Rx 500 mg vit no.95-ferrous 1 tab PO DAILY 08/24/24 08/23/24 12:00 History fumarate 28 mg-folic acid 800 mcg 1 TAB tablet () ondansetron 4 mg disintegrating 4 mg PO Q8H PRN PRN Nausea #12 tabs 09/12/24 Unknown Rx tablet Allergy/AdvReac Type Severity Reaction Status Date / Time No Known Allergies Allergy Verified 09/12/24 20:17 Surgical History no surgical history Social History Smoking Status: Never smoker ROS ROS ED ROS Narrative Constitutional: Negative for fever, chills. CVS: Negative for chest pain, syncope. Respiratory: Negative for shortness of breath, cough. GI: Positive for nausea and vomiting. Negative for abdominal pain, diarrhea. : Negative for dysuria, frequency. EXAM Physical Exam Narrative Exam Narrative: CONST: Patient sitting in no acute distress. EYES: Normal inspection. NECK: Normal inspection. RESP: No respiratory distress, CTAB. CVS: Slightly tachycardic with regular rhythm, no murmur, no gallop. ABD: Gravid abdomen nontender, no guarding or rebound, nondistended, no hepatosplenomegaly. SKIN: Color normal, no rash, warm, dry, intact. EXTREMITIES: Normal appearance, no pedal edema. NEURO: Alert and answering questions appropriately. PSYCH: Normal affect. Const Vital Signs: 09/12/24 20:18 09/12/24 22:14 Temperature 97.7 F L 98.1 F Temperature Source Temporal Pulse Rate 118 H 93 Respiratory Rate 18 18 Blood Pressure 108/75 106/45 L Blood Pressure Mean 86 65 Pulse Ox 97 99 Oxygen Delivery Method Room Air Physical Exam Const Vital Signs: 09/12/24 20:18 09/12/24 22:14 Temperature 97.7 F L 98.1 F Temperature Source Temporal Pulse Rate 118 H 93 Respiratory Rate 18 18 Blood Pressure 108/75 106/45 L Blood Pressure Mean 86 65 Pulse Ox 97 99 Oxygen Delivery Method Room Air MDM MDM MDM Narrative Medical decision making narrative: Differential includes electrolyte derangement, KUNAL, UTI 19-year-old female approximately 31 weeks presents with nausea and vomiting that started last evening. She ran out of Zofran. She states she has mild abdominal cramping but no overt pain and is feeling good movement and does not have bleeding. She appears well and nontoxic. Heart rate is 118 with otherwise normal vital signs. She has no clinical signs of dehydration and gravid abdomen is soft and nontender. Labs show WBC of 16.1. It looks like she has chronic leukocytosis and this is lower than earlier this month. Electrolytes and renal function are normal. Her urinalysis is contaminated but does have 3+ bacteria. She has no urinary symptoms so I will send for culture and at this time do not feel she needs antibiotics. She was given IV fluids and Zofran. She is tolerating a p.o. challenge and vital signs have improved. I feel she is safe for discharge, I prescribed Zofran ODT and she was instructed to follow-up with her DISPOSAL PLANT OPERATOR. Lab Data Attestation: I reviewed the patient's lab results. Labs: Laboratory Results - last 24 hr 09/12/24 09/12/24 20:23 20:54 WBC 16.1 H RBC 4.50 Hgb 13.0 Hct 39.3 MCV 87.3 MCH 28. (more content not included)... Normal [facility] M100.678on 09-12-2024 M100.678 Pending SARS-CoV-2 (COVID 19) Negative INFLUENZA A Negative INFLUENZA B Negative RSV PCR Negative Normal [facility] Comment on above: Performed By: #### M 100.678 #### [facility] [address] [place], [place], [id number] ,Serum,hCG Quali.on 09-12-2024 HCG, SERUM QUAL Normal [facility] Comment on above: Result Comment: Mayra gould via OM: Ordered Performed By: #### M 100.678 #### [facility] [address] [place], [place], [id number] INTERNAL QC OK? Normal [facility] Comment on above: Result Comment: Canc elled via OM: Ordered Performed By: #### M 100.678 #### [facility] [address] [place], [address] RECORD KIT LOT# Normal [facility] Comment on above: Result Comment: Canc elled via OM: MD Ordered Performed By: #### M 100.678 #### [facility] [address] [place], [address] Urinalysis, Completeon 09-12 BACTERIA 3+ /hpf Normal None Seen [facility] Comment on above: Order Comment: CLEAN CATCH Performed By: #### L 400.0001 #### [facility] [address] [place], [address] EPI,SQUAMOUS 10-25 SEEN Normal 5-10 [facility] Comment on above: Order Comment: CLEAN CATCH Performed By: #### L 400.0001 #### [facility] [address] [place], [address] RBC 0-5 SEEN Normal 0-5 [facility] Comment on above: Order Comment: CLEAN CATCH Performed By: #### L 400.0001 #### [facility] [address] [place], [address] WBC 10-25 SEEN Normal 0-5 [facility] Comment on above: Order Comment: CLEAN CATCH Performed By: #### L 400.0001 #### [facility] [address] [place], [address] Mucus Ql (Urine sed) 0 SEEN Normal [facility] Comment on above: Order Comment: CLEAN CATCH Performed By: #### L 400.0001 #### [facility] [address] [place], [address] BACTERIAL VAGINOSIS NAATon 0 08-25-2024 Lactobacillus crispatus+gasseri+phillips ii + Gardnerella vaginalis + Atopobium vaginae rRNA VIRIDIANA+probe Ql (Vag fld) Not detected Normal Not detected [facility] Comment on above: Order Comment: Speci men Type: SWAB Ordering Facility: [facility] Address: [address] [place] [address] Performed By: #### B VAMP #### [facility] CLIA [id number] [address] [place] [address] [id number] C. trachomatis+N. gonorrhoea e DNA VIRIDIANA+probe Ql (Unsp spec)on 08-25-2024 C. trachomatis rRNA VIRIDIANA+probe Ql (Unsp spec) Not detected Normal Not detected [facility] Comment on above: Order Comment: Speci men Type: SWAB Ordering Facility: [facility] Address: [address] [place] [address] Performed By: #### 3 6902-5, TRVAMP #### [facility] CLIA [id number] [address] N. gonorrhoeae rRNA VIRIDIANA+probe Ql (Unsp spec) Not detected Normal Not detected [facility] Comment on above: Order Comment: Speci men Type: SWAB Ordering Facility: [facility] Address: [address] [place] [address] Performed By: #### 3 6902-5, TRVAMP #### [facility] CLIA [id number] [address] [facility] CNDSon 08-25-2024 CNDS HNO ID: [id number] Author: JAKOB CEJA MD Service: Obstetrics Author Type: Resident Type: Discharge Summary Filed: 08/25/2024 10:48 Note Text: Attestation signed by Jakob Ceja MD at 08/25/2024 10:48 AM Attending Note Reviewed the discharge summary for this patient being cared for by the OB team and agree with its content and above plan of care unless otherwise indicated. Signature: Jakob Ceja MD Date: August 25, 2024 Time: 10:48 AM I have performed the [id number] and relevant services for a total of >30 minutes. DISCHARGE NOTE (Patient Admitted Less than 48 Hours) SERVICE DATE: 08/25/2024 SERVICE TIME: 10:01 AM ADMISSION DATE: 08/24/2024 DISCHARGE DISPOSITION: Home with Self Care DIET: Regular ACTIVITY AFTER DISCHARGE: Resume pre-hospital activity FOLLOW UP CARE REQUIRED: Appointment today for 2nd dose of betamethasone. 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 40 mg tablet Commonly known as: PROTONIX Take 1 tablet by mouth once daily. PRENA-CAP ORAL progesterone micronized 200 mg capsule Commonly known as: PROMETRIUM Use 1 capsule vaginally once daily. ZOFRAN 4 mg tablet Generic drug: ondansetron FINAL DIAGNOSIS: contractions Plan of care discussed with Provider, RN, Patient SIGNATURE: Johnny Ulrich DO PATIENT NAME: Zain Rose DATE: August 25, 2024 TIME: 10:01 AM [facility] Nurse [facility] (OBGYWM) ZAIN ROSE ([id number]) 5 F Date Time Provider Department 08/25/24 4:00 PM NURSE DISPOSAL PLANT OPERATOR [facility] OBGYWM During your visit today, we recorded the following information about you: Blood pressure Weight 110/73 69.9 kg Alison Yu RN 08/25/2024 4:42 PM Signed The patient is here for 2nd injection of Betamethasone. Dose: 12mg/2ml Amount wasted: none. 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 Lot #: [id number] Expiration Date: 03/18/2025 See MAR The date due for the next injection is N/A Provider Alison Grimm MD was present in the office at the time of injection. Patient tolerated well. Alison Yu RN Allergies As of Date: 08/25/2024 (No Known Allergies) Date Reviewed: 08/24/2024 Reviewed by: Tania Fatima MA - Fully Assessed Primary Visit Diagnosis:Threatened premature labor, antepartum [O47.00] Order(s):[] betamethasone acetate-betamethason e sodium phosphate 12 mg injection (CELESTONE)Disp: Rfl: Prescriptions as of 08/25/2024 - betamethasone acetate-betamethason e sodium phosphate (CELESTONE) 6 mg/mL injection Inject 2 mL intramuscularly every 24 hours for 2 days. - pantoprazole DR (PROTONIX) 40 mg tablet Take 1 tablet by mouth once daily. - progesterone micronized (PROMETRIUM) 200 mg capsule Use 1 capsule vaginally once daily. - ondansetron (ZOFRAN) 4 mg tablet Take 4 mg by mouth every 8 hours as needed for nausea/vomiting. - PNV/iron,carb/docusa t/folic ac (PRENA-CAP ORAL) Take 1 tablet by mouth once daily. Problem List As Of Date 08/25/2024 Noted Resolved ADHD (attention deficit hyperactivity disorder)*08/28/2011 with uncertain dates in first trimest*03/27/2024 Supervision of high risk in second tr*03/27/2024 Family history of deafness [Z82.2] 03/27/2024 Hyperemesis gravidarum [O21.0] 03/27/2024 Heartburn during in third trimester [*03/27/2024 Anxiety during [O99.340, F41.9] 03/27/2024 Depression affecting in second trimes*05/22/2024 Cervix, short (affecting ) [O26.879] 07/13/2024 Threatened labor, third trimester [O47.*08/24/2024 contractions [O47.00] 08/24/2024 Anxiety and depression [F41.9, F32.A] 08/25/2024 Prematurity of fetus [P07.30] 08/25/2024 Prescriptions ordered this encounter Disp Refills Start End BETAMETHASONE ACETATE AND SODIUM MYNOR* 08/25/2024 08/25/2024 Route: INTRAMUSCULA Encounter Status:Closed by ALISON YU on 08/25/24 [facility] ZAIN RO[facility] ([id number]) 5 F Date Time Provider Department 08/25/24 ALISON GRIMM During your visit today, we recorded the following information about you: Edilberto Bailey RN 08/25/2024 4:52 PM Signed 28w2d Patient stopped at front attendant after betamethasone injection visit today. Asking for letter for some type of light duty at work. She was discharged from [facility] d/t PTL. 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 Didn't have specific requests. Aware note being sent to solution make up operator provider to review tomorrow d/t time of day. BOZENA Washington Jennifer, MD 08/26/2024 9:34 AM Signed She can have a letter for whatever qualifies as light duty for her work Matt Lewis RN 08/26/2024 10:49 AM Signed Called patient to inquire what she needs letter to address for work. Patient states she wants letter stating that she should not be working because she is on her feet all day. Discussed with patient not working and light duty are two different things and that this would have to be approved by doctor. Can you address? Patient has next appointment on 09/08/24. BOZENA [place] Jennifer, MD 08/26/2024 11:26 AM Signed She needs to start with her HR department. They more than likely have FMLA paperwork that would be needed for light duty or off completely. Either way she only get 12 weeks of FMLA. They will not hold her job for her after that. Matt Lewis RN 08/26/2024 11:39 AM Signed Patient notified and voiced understanding. Matt Lewis RN Allergies As of Date: 08/25/2024 (No Known Allergies) Date Reviewed: 08/24/2024 Reviewed by: Tania Fatima MA - Fully Assessed Reason for Visit: Letter [264] Prescriptions as of 08/26/2024 - betamethasone acetate-betamethason e sodium phosphate (CELESTONE) 6 mg/mL injection Inject 2 mL intramuscularly every 24 hours for 2 days. - pantoprazole DR (PROTONIX) 40 mg tablet Take 1 tablet by mouth once daily. - progesterone micronized (PROMETRIUM) 200 mg capsule Use 1 capsule vaginally once daily. - ondansetron (ZOFRAN) 4 mg tablet Take 4 mg by mouth every 8 hours as needed for nausea/vomiting. - PNV/iron,carb/docusa t/folic ac (PRENA-CAP ORAL) Take 1 tablet by mouth once daily. Problem List As Of Date 08/25/2024 Noted Resolved ADHD (attention deficit hyperactivity disorder)*08/28/2011 with uncertain dates in first trimest*03/27/2024 Supervision of high risk in second tr*03/27/2024 Family history of deafness [Z82.2] 03/27/2024 Hyperemesis gravidarum [O21.0] 03/27/2024 Heartburn during in third trimester [*03/27/2024 Anxiety during [O99.340, F41.9] 03/27/2024 Depression affecting in second trimes*05/22/2024 Cervix, short (affecting ) [O26.879] 07/13/2024 Threatened labor, third trimester [O47.*08/24/2024 contractions [O47.00] 08/24/2024 Anxiety and depression [F41.9, F32.A] 08/25/2024 Prematurity of fetus [P07.30] 08/25/2024 Encounter Status:Closed by MATT LEWIS on 08/26/24 [facility] HISTORY PHYSICALon HISTORY PHYSICAL HNO ID: [id number] Author: JAKOB CEJA MD Service: Obstetrics Author Type: Resident Type: H&P Filed: 08/25/2024 10:46 Note Text: Attestation signed by Jakob Ceja MD at 08/25/2024 10:46 AM Attending Note I evaluated the patient and personally participated in the martinez components. I agree with the resident's findings and plan as documented and have discussed the case and management of the patient's care with the resident. Pt transferred for concern for PTL. No evidence of PTL. Will d/c Mag, and discharge in am if no further ctx. Signature: Jakob Ceja MD Date: 08/25/2024 Time: 10:45 AM OBSTETRICS HISTORY AND PHYSICAL SERVICE DATE: August 25, 2024 SERVICE TIME: 1:22 AM Subjective Patient's stated reason for arrival: contractions CHIEF COMPLAINT: Contractions HISTORY OF THE PRESENT ILLNESS: The patient is a 19 year old female, , who is at 28w2d with an BOGDAN of 11/15/2024, by Last Menstrual Period dating method. Patient is a transfer of care from [facility] for contractions. She reports having contractions over the weekend. She presented to her provider today due to contractions, which she reports were q7-8m apart. The office started on BMZ and then sent her home. Her contractions worsened at home, so she presented to [facility]. They completed a cervical exam: fingertip, and started her on magnesium. She was then transferred here. The last contraction she felt was in the ambulance, that she rated a 8/10. She has not had any contractions since. Reports good movement, denies vaginal bleeding or discharge. Denies headache, vision changes, chest pain, shortness of breath, and right upper quadrant pain. Reports no history of HSV, HIV, MRSA, or Hep B or C. Reports no recreational drug use, substance use, tobacco/vaping, or alcohol in the last year. POST DELIVERY CONTRACEPTION: Discussed post-delivery contraception options. Patient does not desire post-delivery contraception. HISTORY REVIEW PAST MEDICAL HISTORY Diagnosis Date ADHD (attention deficit hyperactivity disorder) Generalized anxiety disorder NEGATIVE MEDICAL HISTORY normal color vision past medical history of age 2 years dermatoid - by her right eye PAST SURGICAL HISTORY Procedure Laterality Date NEXPLANON REMOVAL Left 10/07/2023 PAST SURGICAL HISTORY OF surgery on eye FAMILY HISTORY Problem Relation Age of Onset Allergies Father Breast Cancer Maternal Grandmother Social History Tobacco Use Smoking status: Never Smokeless tobacco: Never Tobacco comments: no smoking in home Vaping Use Vaping status: Former Quit date: 03/08/2024 Substance Use Topics Alcohol use: Not Currently Comment: no alcohol use in home Drug use: Never Obstetric History T0 L0 SAB0 IAB0 Ectopic0 Multiple0 Live Births0 Name of Baby 1: Not recorded Date: Not recorded GA: Not recorded Type: Not recorded Apgar1: Not recorded Apgar5: Not recorded Living: Not recorded ALLERGIES No Known Allergies Prior to Admission Medications Prescriptions Last Dose Informant Patient Reported? Taking? PNV/iron,carb/docusa t/folic ac (PRENA-CAP ORAL) Yes No Sig: Take 1 tablet by mouth once daily. betamethasone acetate-betamethason e sodium phosphate (CELESTONE) 6 mg/mL injection No No Sig: Inject 2 mL intramuscularly every 24 hours for 2 days. ondansetron (ZOFRAN) 4 mg tablet Yes No Sig: Take 4 mg by mouth every 8 hours as needed for nausea/vomiting. pantoprazole DR (PROTONIX) 40 mg tablet No No Sig: Take 1 tablet by mouth once daily. progesterone micronized (PROMETRIUM) 200 mg capsule No No Sig: Use 1 capsule vaginally once daily. Facility-Administere d Medications Last Administration Doses Remaining betamethasone acetate-betamethason e sodium phosphate 12 mg injection (CELESTONE) 08/24/2024 4:22 PM 1 REVIEW OF SYSTEMS: See HPI. Objective LAST VITALS: Pulse BP Resp O2 Sat Temp Pain 93 112/67 15 98 % 36.5 ?C (97.7 ?F) 8 HT/WT/BMI: Height Weight BMI 167.6 cm (5' 6) 69.9 kg (154 lb 3.2 oz) 24.89 SENSITIVE EXAMINATION CONSENT: The sensitive examination was discussed with the Patient or Patient's Authorized Surface Plate Inspector. As applicable, any other physician, advance practice provider, medical student, or other health professional student that will be observing or involved in the sensitive examination for educational or training purposes was discussed with the Patient or Authorized Surface Plate Inspector. The Patient or Authorized Surface Plate Inspector has agreed to proceed with the sensitive examination. (Sensitive examination includes inspection and/or palpation of the breasts, pelvis, prostate and anorectal regions) PHYSICAL EXAM: General: WD, WN (more content not included)... Normal [facility] TRICHOMONAS VAGINALIS NAATon 08-25-2024 T. vaginalis DNA VIRIDIANA+probe Ql (Unsp spec) Not detected Normal Not detected [facility] Comment on above: Order Comment: Speci men Type: SWAB Ordering Facility: [facility] Address: [address] [place] [address] Performed By: #### 3 6902-5, TRVA #### [facility] CLIA [id number] [address] [place] [address] [place] Urinalysis complete panel (U )on 08-25-2024 Bilirubin Ql (U) Negative Normal Negative [facility] Comment on above: Order Comment: Speci men Type: URINE SPECIMEN Ordering Facility: [facility] Address: [address] [place] [address] Performed By: #### 2 4356-8 #### [facility] CLIA [id number] [address] OF [place] Clarity (Unsp spec) Clear Normal Clear [facility] Comment on above: Order Comment: Speci men Type: URINE SPECIMEN Ordering Facility: [facility] Address: [address] [place] [address] Performed By: #### 2 4356-8 #### [facility] CLIA [id number] [address] Color (U) Yellow Normal Yellow [facility] Comment on above: Order Comment: Speci men Type: URINE SPECIMEN Ordering Facility: [facility] Address: [address] [place] [address] Performed By: #### 2 4356-8 #### [facility] CLIA [id number] [address] Epithelial cells LM.HPF (Urine sed) [#/Area] Few Normal [facility] Comment on above: Order Comment: Speci men Type: URINE SPECIMEN Ordering Facility: [facility] Address: [address] [place] [address] Performed By: #### 2 4356-8 #### [facility] CLIA [id number] [address] OF [place] Glucose Test strip (U) [Mass/Vol] Negative Normal Negative [facility] Comment on above: Order Comment: Speci men Type: URINE SPECIMEN Ordering Facility: [facility] Address: [address] [place] [address] Performed By: #### 2 4356-8 #### [facility] CLIA [id number] [address] [place] Hemoglobin Ql (U) Negative Normal Negative [facility] Comment on above: Order Comment: Speci men Type: URINE SPECIMEN Ordering Facility: [facility] Address: [address] [place] [address] Performed By: #### 2 4356-8 #### [facility] CLIA [id number] [address] OF [facility] Ketones Ql (U) 1+ Abnormal Negative [facility] Comment on above: Order Comment: Speci men Type: URINE SPECIMEN Ordering Facility: [facility] Address: [address] [place] [address] Performed By: #### 2 4356-8 #### [facility] CLIA [id number] [address] Leukocyte esterase Test strip Ql (U) Trace Abnormal Negative [facility] Comment on above: Order Comment: Speci men Type: URINE SPECIMEN Ordering Facility: [facility] Address: [address] [place] [address] Performed By: #### 2 4356-8 #### [facility] CLIA [id number] 1 [place] [address] [place] Nitrite Ql (U) Negative Normal Negative [facility] Comment on above: Order Comment: Speci men Type: URINE SPECIMEN Ordering Facility: [facility] Address: [address] [place] [address] Performed By: #### 2 4356-8 #### [facility] CLIA [id number] [address] [place] pH (U) 5.5 [pH] Normal 5.0-8.0 [facility] Comment on above: Order Comment: Speci men Type: URINE SPECIMEN Ordering Facility: [facility] Address: [address] [place] [address] Performed By: #### 2 4356-8 #### [facility] CLIA [id number] [address] [place] Protein (U) [Mass/Vol] Negative Normal Negative [facility] Comment on above: Order Comment: Speci men Type: URINE SPECIMEN Ordering Facility: [facility] Address: [address] [place], [place] [address] Performed By: #### 2 4356-8 #### [facility] CLIA [id number] [address] RBC LM.HPF (Urine sed) [#/Area] 0-3 /HPF Normal 0-3 /HPF [facility] Comment on above: Order Comment: Speci men Type: URINE SPECIMEN Ordering Facility: [facility] Address: [address] [place] [address] Performed By: #### 2 4356-8 #### [facility] CLIA [id number] [address] Specific gravity (U) [Rel density] >=1.030 High 1.005-1.030 [facility] Comment on above: Order Comment: Speci men Type: URINE SPECIMEN Ordering Facility: [facility] Address: [address] [place] [address] Performed By: #### 2 4356-8 #### [facility] CLIA [id number] [address] Urobilinogen Ql (U) 0.2 EU/dL Normal 0.2 EU/d L, 1.0 EU/dL [facility] Comment on above: Order Comment: Speci men Type: URINE SPECIMEN Ordering Facility: [facility] Address: [address] [place] [address] Performed By: #### 2 4356-8 #### [facility] CLIA [id number] [address] [place] [address] WBC LM.HPF (Urine sed) [#/Area] 0-5 /HPF Normal 0-5 /HPF [facility] Comment on above: Order Comment: Speci men Type: URINE SPECIMEN Ordering Facility: [facility] Address: [address] [place] [address] Performed By: #### 2 4356-8 #### [facility] CLIA [id number] [address] CBC W Auto Differential pane l (Bld)on 08-24-2024 Basophils (Bld) [#/Vol] 0.06 10*3/uL Normal <0.11 [facility] Comment on above: Order Comment: Speci men Type: BLOOD SPECIMENOrdering Facility: [facility] Address: [address] [place] [address] Performed By: #### 5 7021-8 ####[facility] [id number] [facility] [address] [place] Basophils/100 WBC (Bld) 0.5 % Normal C [facility] Comment on above: Order Comment: Speci men Type: BLOOD SPECIMENOrdering Facility: [facility] Address: [address] [place] [address] Performed By: #### 5 7021-8 ####[facility] [id number] [place] [address] [place] Differential cell count method Nom (Bld) Auto Normal [facility] Comment on above: Order Comment: Speci men Type: BLOOD SPECIMENOrdering Facility: [facility] Address: [address] [place] [address] Performed By: #### 5 7021-8 ####[facility] [id number] [place] [address] [place] Eosinophils (Bld) [#/Vol] 0.06 10*3/uL Normal <0.46 [facility] Comment on above: Order Comment: Speci men Type: BLOOD SPECIMENOrdering Facility: [facility] Address: [address] [place] [address] Performed By: #### 5 7021-8 ####[facility] [id number] [facility] [address] [place] Eosinophils/100 WBC (Bld) 0.5 % Normal [facility] Comment on above: Order Comment: Speci men Type: BLOOD SPECIMENOrdering Facility: [facility] Address: [address] [place] [address] Performed By: #### 5 7021-8 ####[facility] [id number] [place] [address] [place] Erythrocyte distribution width (RBC) [Ratio] 13.5 % Normal 11.5-15.0 [facility] Comment on above: Order Comment: Speci men Type: BLOOD SPECIMENOrdering Facility: [facility] Address: [address] [place] [address] Performed By: #### 5 7021-8 ####[facility] [id number] [place] [address] [place] Hematocrit (Bld) [Volume fraction] 38.5 % Normal 36.0-46.0 [facility] Comment on above: Order Comment: Speci men Type: BLOOD SPECIMENOrdering Facility: [facility] Address: [address] [place] [address] Performed By: #### 5 7021-8 ####[facility] [id number] [place] [address] [place] Hemoglobin (Bld) [Mass/Vol] 12.8 g/dL Normal 11.5-15.5 [facility] Comment on above: Order Comment: Speci men Type: BLOOD SPECIMENOrdering Facility: [facility] Address: [address] [place] [address] Performed By: #### 5 7021-8 ####[facility] [id number] [place] [address] [place] Immature granulocytes (Bld) [#/Vol] 0.24 10*3/uL High <0.10 [facility] Comment on above: Order Comment: Speci men Type: BLOOD SPECIMENOrdering Facility: [facility] Address: [address] [place] [address] Performed By: #### 5 7021-8 ####[facility]IA [id number] [place] [id number] [place] Immature granulocytes/100 WBC (Bld) 1.9 % Normal [facility] Comment on above: Order Comment: Speci men Type: BLOOD SPECIMENOrdering Facility: [facility] Address: [address] [place] [address] Performed By: #### 5 7021-8 ####[facility] [id number] [place] [address] [place] Lymphocytes (Bld) [#/Vol] 1.20 10*3/uL Normal 1.00-4.00 [facility] Comment on above: Order Comment: Speci men Type: BLOOD SPECIMENOrdering Facility: [facility] Address: [address] [place] [address] Performed By: #### 5 7021-8 ####[facility] [id number] [place] [address] [place] Lymphocytes/100 WBC (Bld) 9.4 % Normal [facility] Comment on above: Order Comment: Speci men Type: BLOOD SPECIMENOrdering Facility: [facility] Address: [address] [place] [address] Performed By: #### 5 7021-8 ####[facility] [id number] [place] [address] [place] MCH (RBC) [Entitic mass] 29.7 pg Normal 26.0-34.0 [facility] Comment on above: Order Comment: Speci men Type: BLOOD SPECIMENOrdering Facility: [facility] Address: [address] [place] [address] Performed By: #### 5 7021-8 ####[facility] [id number] [place] [address] [place] MCHC (RBC) [Mass/Vol] 33.2 g/dL Normal 30.5-36.0 [facility] Comment on above: Order Comment: Speci men Type: BLOOD SPECIMENOrdering Facility: [facility] Address: [address] [place] [address] Performed By: #### 5 7021-8 ####[facility] [id number] [place] [address] [place] MCV (RBC) [Entitic vol] 89.3 fL Normal 80.0-100.0 C [facility] Comment on above: Order Comment: Speci men Type: BLOOD SPECIMENOrdering Facility: [facility] Address: [address] [place] [address] Performed By: #### 5 7021-8 ####[facility] [id number] [place] [address] [place] Monocytes (Bld) [#/Vol] 0.74 10*3/uL Normal <0.87 [facility] Comment on above: Order Comment: Speci men Type: BLOOD SPECIMENOrdering Facility: [facility] Address: [address] [place] [address] Performed By: #### 5 7021-8 ####[facility] [id number] [place] [address] [place] Monocytes/100 WBC (Bld) 5.8 % Normal C [facility] Comment on above: Order Comment: Speci men Type: BLOOD SPECIMENOrdering Facility: [facility] Address: [address] [place] [address] Performed By: #### 5 7021-8 ####[facility] [id number] [place] [address] [place] Neutrophils (Bld) [#/Vol] 10.53 10*3/uL High 1.45-7.50 [facility] Comment on above: Order Comment: Speci men Type: BLOOD SPECIMENOrdering Facility: [facility] Address: [address] [place] [address] Performed By: #### 5 7021-8 ####[facility] [id number] [place] [address] [place] Neutrophils/100 WBC (Bld) 81.9 % Normal [facility] Comment on above: Order Comment: Speci men Type: BLOOD SPECIMENOrdering Facility: [facility] Address: [address] [place] [address] Performed By: #### 5 7021-8 ####[facility] [id number] [place] [address] [place] Nucleated RBC (Bld) [#/Vol] 10*3/uL Normal <0.01 [facility] Comment on above: Order Comment: Speci men Type: BLOOD SPECIMENOrdering Facility: [facility] Address: [address] [place] [address] Performed By: #### 5 7021-8 ####[facility] [id number] [place] [address] [place] Nucleated RBC/100 WBC (Bld) [Ratio] 0.0 /100 WBC Normal [facility] Comment on above: Order Comment: Speci men Type: BLOOD SPECIMENOrdering Facility: [facility] Address: [address] [place] [address] Performed By: #### 5 7021-8 ####[facility] [id number] [place] [address] [place] Platelet mean volume (Bld) [Entitic vol] 11.5 fL Normal 9.0-12.7 [facility] Comment on above: Order Comment: Speci men Type: BLOOD SPECIMENOrdering Facility: [facility] Address: [address] [place] [address] Performed By: #### 5 7021-8 ####[facility] [id number] [place] [address] [place] Platelets (Bld) [#/Vol] 256 10*3/uL Normal 150-400 [facility] Comment on above: Order Comment: Speci men Type: BLOOD SPECIMENOrdering Facility: [facility] Address: [address] [place] [address] Performed By: #### 5 7021-8 ####[facility] [id number] [place] [id number] [place] RBC (Bld) [#/Vol] 4.31 10*6/uL Normal 3.90-5.20 [facility] Comment on above: Order Comment: Speci men Type: BLOOD SPECIMENOrdering Facility: [facility] Address: [address] [place] [address] Performed By: #### 5 7021-8 ####[facility] [id number] [place] [address] [place] WBC (Bld) [#/Vol] 12.83 10*3/uL High 3.70-11.00 [facility] Comment on above: Order Comment: Speci men Type: BLOOD SPECIMENOrdering Facility: [facility] Address: [address] [place] [address] Performed By: #### 5 7021-8 ####[facility] [id number] [place] [id number] [place] CBC W/Diff, Automatedon 01-0 6-5 Absolute Lymph 0.77 X10 3/uL Low 0.83-4.51 [facility] Comment on above: Performed By: #### L 100.0100, L500.2500 #### [facility] [address] [place], [address] Absolute Neut 18.5 X10 3/uL High 2.0-7.7 [facility] Comment on above: Performed By: #### L 100.0100, L500.2500 #### [facility] [address] [place], [address] Basophils/100 WBC (Bld) 0.4 % Normal 0-1 [facility] Comment on above: Performed By: #### L 100.0100, L500.2500 #### [facility] [address] [place], [address] Eosinophils/100 WBC (Bld) 0.0 % Normal 0-5 [facility] Comment on above: Performed By: #### L 100.0100, L500.2500 #### [facility] [address] [place], [address] Erythrocyte distribution width (RBC) [Ratio] 13.4 % Normal 11.6-14.6 [facility] Comment on above: Performed By: #### L 100.0100, L500.2500 #### [facility] [address] [place], [address] Hematocrit (Bld) [Volume fraction] 37.6 % Normal 37-47 [facility] Comment on above: Performed By: #### L 100.0100, L500.2500 #### [facility] [address] [place], [address] Hemoglobin (Bld) [Mass/Vol] 12.4 g/dL Normal 12.0-15.0 [facility] Comment on above: Performed By: #### L 100.0100, L500.2500 #### [facility] [address] [place], [address] IG% 2.300 High 0.0-0.9 [facility] Comment on above: Result Comment: IG% - Immature Granulocytes (promyelocytes, myelocytes and metamyelocytes) > 1% indicates that a LEFT SHIFT is Present. Performed By: #### L 100.0100, L500.2500 #### [facility] [address] [place], [address] Lymphocytes/100 WBC (Bld) 3.8 % Low 19-41 [facility] Comment on above: Performed By: #### L 100.0100, L500.2500 #### [facility] [address] [place], [address] MCH (RBC) [Entitic mass] 28.8 pg Normal 27.0-32.0 [facility] Comment on above: Performed By: #### L 100.0100, L500.2500 #### [facility] [address] [place], [address] MCHC (RBC) [Mass/Vol] 33.0 g/dL Normal 32-36 [facility] Comment on above: Performed By: #### L 100.0100, L500.2500 #### [facility] [address] [place], [address] MCV (RBC) [Entitic vol] 87.2 fL Normal 81-99 [facility] Comment on above: Performed By: #### L 100.0100, L500.2500 #### [facility] [address] [place], [address] Monocytes/100 WBC (Bld) 1.6 % Normal 0-10 [facility] Comment on above: Performed By: #### L 100.0100, L500.2500 #### [facility] [address] [place], [address] Neutrophils/100 WBC (Bld) 91.9 % High 47-70 [facility] Comment on above: Performed By: #### L 100.0100, L500.2500 #### [facility] [address] [place], [address] Nucleated RBC (Bld) [#/Vol] 0 10*3/uL Normal 0-5 [facility] Comment on above: Performed By: #### L 100.0100, L500.2500 #### [facility] [address] [place], [address] Platelet mean volume (Bld) [Entitic vol] 10.9 fL Normal 6.2-12.0 [facility] Comment on above: Performed By: #### L 100.0100, L500.2500 #### [facility] [address] [place], [address] Platelets (Bld) [#/Vol] 247 10*3/uL Normal 150-450 [facility] Comment on above: Performed By: #### L 100.0100, L500.2500 #### [facility] [address] [place], [address] RBC (Bld) [#/Vol] 4.31 10*6/uL Normal 4.2-5.4 [facility] Comment on above: Performed By: #### L 100.0100, L500.2500 #### [facility] [address] [place], [address] RDW SD 42.8 fl Normal 35.1-43.9 [facility] Comment on above: Performed By: #### L 100.0100, L500.2500 #### [facility] [address] [place], [address] WBC (Bld) [#/Vol] 20.2 10*3/uL High 4.4-11.0 [facility] Comment on above: Performed By: #### L 100.0100, L500.2500 #### [facility] [address] [place], [address] GESTATIONAL GLUCOSE SCREEN, 1-HOUR, 50 GRAM, NON-FASTINGon 08-24-2024 Glucose [Mass/Vol] 115 mg/dL Normal 74-134 [facility] Comment on above: Order Comment: Speci men Type: BLOOD SPECIMENOrdering Facility: [facility] Address: [address] [place] [address] Result Comment: [facility] Congress of Obstetricians and Gynecologists (Marisa/[place]ula) guidelines state a gestational diabetes mellitus positive screen is made, in women not previously diagnosed with overt diabetes, when the 1 hr plasma glucose level is equal to or above 140 mg/dL. [facility] [employer] [facility] [place] recommends a 135 mg/dL cutoff. Performed By: #### G LTGST ####[facility] [id number] [address] [address] [place] GROUP B STREPTOCOCCUS BY PCR , ROUTINE SCREENINGon 08-24-2024 GROUP B STREPTOCOCCUS BY PCR, ROUTINE SCREENING GROUP B STREP PCR: Negative for Group B Streptococcus by PCR. Normal [facility] Comment on above: Performed By: #### G BPCR ####[facility] [id number] [place] [id number] [place] H AND P Exam - OB/GYNon H&P Exam - DISPOSAL [employer]ANT OPERATOR [facility] Medical Records Department [address] [place] [address] H P Exam - [employer]POSAL [employer]ANT OPERATOR 08/24/241957 MR#: [id number] Acct: [id number] Name: ZAIN ROSE GALINDO Rep #: [id number] : 2005 19 From: Suellen Cortes DO PCP: Dr. Kuldeep Khan MD Status:[facility] Location: [id number] HPI - General General Date of Admission: 08/24/24 Date of Service: 08/24/24 Chief Complaint: ctx's HPI Narrative ZAIN ROSE, is a 19 F who presents with more frequent ctx's. She was admitted over the weekend for threatened PTL. She was seen in the office today and cervix was unchanged. She was given 1 dose BMZ in the office and a GBS was collected. Her ctx's were improved earlier today so the plan was to return to the office in 24 hours for second dose of BMZ. However she presents to L D triage with more frequent ctx's. She reports ctx's are every 7-10 min. No vb, lof. Good FM. Maternal Data Information BOGDAN Calculator Estimated Delivery Date Method Current WG Current Estimate 11/22/24 Manual 27w 1d PFSH PFSH Medical History ADHD Home Medications ???Medication ???Instructions ???Recorded ???Last Taken ???Type promethazine 25 mg tablet 25 mg PO Q6H PRN PRN nausea and 05/26/24 Unknown History vomiting ondansetron HCl 4 mg tablet 4 mg PO DAILY 08/03/24 08/23/24 08:00 History 4 mg pantoprazole 20 mg tablet,delayed 20 mg PO DAILY 08/21/24 08/23/24 16:00 History release 20 mg metronidazole 500 mg tablet 500 mg PO BID #14 tabs 08/22/24 08/23/24 00:00 Rx 500 mg vit no.95-ferrous 1 tab PO DAILY 08/24/24 08/23/24 12:00 History fumarate 28 mg-folic acid 800 mcg 1 TAB tablet () Allergy/AdvReac Type Severity Reaction Status Date / Time No Known Allergies Allergy Verified 08/24/24 18:56 Surgical History no surgical history Social History Smoking Status: Never smoker History Addt'l History: H/o shortened cervix on vaginal prometrium NST FHR Rate Baby A NST Reactive:: Appropriate for gestational age Uterine Activity:: irregular Vital Signs Vital Signs Vital Signs: 08/24/24 19:01 08/24/24 19:01 08/24/24 19:02 Temperature Temperature Source Pulse Rate 103 H Respiratory Rate Blood Pressure 102/63 BP Systolic 102 BP Diastolic 63 Pulse Ox 98 08/24/24 19:02 08/24/24 19:02 08/24/24 19:02 Temperature Temperature Source Temporal Pulse Rate 86 Respiratory Rate 16 Blood Pressure BP Systolic BP Diastolic Pulse Ox 08/24/24 19:02 Temperature 98.5 F Temperature Source Pulse Rate Respiratory Rate Blood Pressure BP Systolic BP Diastolic Pulse Ox Weight Weight: 153 lb 14.122 oz Body Mass Index (BMI) 24.8 Physical Exam Const alert and no apparent distress Constitutional Narrative: breathing through ctx's HEENT normocephalic Resp normal respiratory effort GI soft to palpation and non-tender Narrative: Cvx 0.5/60/-1, soft, anterior Labs Labs Labs: Hct 42.0 % (37-47) Hgb 13.8 g/dL (12.0-15.0) Assessment Plan (1) 28 weeks gestation of : PLAN: Patient admitted over the weekend for threatened PTL. Bedside TAUS showing transverse presentation. Cvx remains fingertip dilated but softer and more anterior. Patient now breathing through ctx's. 1st dose of BMZ given in office and GBS collected. Start Mag gtt for neuroprotection. Discussed patient with [facility] who accepts patient as a transport to a tertiary care center. [facility] recommends Indocin as well. Will transport patient to tertiary care center. Discussed with patient if she makes cervical change and remains transverse presentation, would need a classical section with need for a repeat section with future . (2) Threatened labor, antepartum: 08/24/242005 Cosigner Signature (if applicable): CC: Dr. Kuldeep Khan MD; Dr. Suellen Cortes DO Signed [facility] L509.8000on 08-24-2024 Syphilis Abs Non-Reactive Normal [facility] Comment on above: Performed By: #### M 100.2200 #### [facility] [address] [facility] [place], [address] Reagin and Treponema pallidu m IgG and IgM [Interp]on 08-24-2024 T. pallidum IgG+IgM IA Ql (S) Non-Reactive Normal Nonreactive [facility] Comment on above: Order Comment: Speci men Type: BLOOD SPECIMENOrdering Facility: [facility] Address: [address] [place] [address] Performed By: #### 7 3752-8 ####[facility] [id number] [place] [address] [place] Reagin+T pallidum IgG+IgM Se rPl-Impon 08-24-2024 Reagin and Treponema pallidum IgG and IgM [Interp] Cannot exclude recent Treponemal infection if specimen collected within 7-10 days after appearance of suspect lesions or 2-3 weeks after an exposure. Clinical correlation is required. Normal [facility] Comment on above: Order Comment: Speci men Type: BLOOD SPECIMENOrdering Facility: [facility] Address: [address] [place] [address] Performed By: #### 7 3752-8 ####[facility] [id number] [address] [place] [address] [place] Type AND Screenon 08-24-2024 Ab SCREEN GEL Negative Normal [facility] Comment on above: Order Comment: Labor Performed By: #### L 100.0100, L500.2500 #### [facility] [address] [place], [address] ABO and Rh group Nom (Bld) Blood group O Rh(D) positive Normal [facility] Comment on above: Order Comment: Labor Performed By: #### L 100.0100, L500.2500 #### [facility] [address] [place], [address] Urine Cultureon 08-24-2024 [facility] Staphylococcus aureus [place] Count 1000-10,000 Staphylococcus aureus: REACTION cefOXitin Susc Islt Doxycycline Islt LUCIA <=0.5 S Clindamycin.induced Susc Islt NEG Gentamicin Islt LUCIA <=0.5 S Linezolid Islt LUCIA 2 S Moxifloxacin Islt LUCIA <=0.25 S Nitrofurantoin Islt LUCIA <=16 S Oxacillin Susc Islt 0.5 S Tetracycline Islt LUCIA <=1 S TMP SMX Islt LUCIA <=10 S Vancomycin Islt LUCIA 1 S Normal [facility] Comment on above: Performed By: #### L 100.0100, L500.2500 #### [facility] [address] [place], [address] OB Triage Physician Noteon 0 08-22-2024 OB Triage Physician Note [facility] Medical Records Department [address] [place] [address] OB Triage Physician Note 08/22/24 0821 MR#: [id number] Acct: [id number] Name: ZAIN ROSE GALINDO Rep #: [id number] : 2005 19 From: Belle Carrillo MD PCP: Dr. Kuldeep Khan MD Status:REG CLI Y [facility] HPI - General General Date of Admission: 08/21/24 Date of Service: 08/22/24 Chief Complaint: abdominal pain/cramping HPI Narrative ZAIN ROSE, is a 19 F who presents c/o cramping. I have been going on for a few days but she would only have a couple a day. Then she stated after she had intercourse yesterday afternoon they began to get more and more frequent. She rated them a 10 out of 10 when she arrived to labor and delivery. She denies any vaginal bleeding or leaking of fluid. She denies any fevers chills, nausea or constipation. She did have 2 emesis yesterday but that is normal for her she has had intermittent emesis throughout the . She denies any dysuria or hematuria. Should be noted that she has been on vaginal progesterone for a short cervix. She denies any vaginal itching or burning or change in sexual partners. She has had good movement. Maternal Data Information BOGDAN Calculator Estimated Delivery Date Method Current WG Current Estimate 11/22/24 Manual 26w 6d Final BOGDAN: 11/22/24 Gestational age: 26 6/7 [facility] Medical History ADHD Home Medications ???Medication ???Instructions ???Recorded ???Last Taken ???Type promethazine 25 mg tablet 25 mg PO Q6H PRN PRN nausea and 05/26/24 Unknown History vomiting ondansetron HCl 4 mg tablet 4 mg PO DAILY 08/03/24 07/30/24 History pantoprazole 20 mg tablet,delayed 20 mg PO DAILY 08/21/24 Unknown History release metronidazole 500 mg tablet 500 mg PO BID #14 tabs 08/22/24 Unknown Rx Allergy/AdvReac Type Severity Reaction Status Date / Time No Known Allergies Allergy Verified 08/21/24 20:55 Surgical History no surgical history Social History Smoking Status: Never smoker Physical Exam Narrative Awake, alert, no acute distress Skin warm dry and intact Abdomen soft, nondistended, gravid, no CVA tenderness, no rebound or guarding on abdominal exam. Fundus is appropriate size for gestational age Extremities no edema Verbal consent for sensitive exam obtained. Nursing present for exam. Cervix is fingertip, approximately 2 cm long, medium consistency and mid position. Can appreciate slight bulging of the lower uterine segment. NST FHR Rate Baby A Baseline: normal Variability:: Moderate Accelerations:: 10 x 10 Decelerations:: None NST Reactive:: Appropriate for gestational age Uterine Activity:: irreg ctxs Assessment Plan (1) Supervision of high risk , unspecified, second trimester: PLAN: Contractions decreased overnight. There is a vaginal odor appreciated on exam. Swabs were not sent as patient had cervical exams, and recent intercourse. Will treat empirically for BV. Discussed with the patient labor precautions. Recommend light activity and pelvic rest for now. Follow-up in the office in 2 days as scheduled but encourage patient to return if contractions increase. Patient is more comfortable at this point with rare contractions. If contractions increase again would consider betamethasone. Also would consider observation at tertiary care center. Has not been taking vaginal progesterone regularly, encouraged to this. Follow-up closely. Patient is comfortable with this plan. (2) 26 weeks gestation of : (3) Threatened labor, antepartum: (4) Bacterial vaginitis: 08/22/24826 Date Belle Carrillo MD Cosigner Signature (if applicable): Date _ CC: Dr. Kuldeep Khan MD; Dr. Belle Carrillo MD Signed Normal [facility] Fibronectinon 08-21-19 fFIBRONECTIN Positive Abnormal [facility] Comment on above: Result Comment: RESU LTS CALLED TO WOMEN YUDI SEALS 08/21/24 9279 Britni Ravi. REPORT READ BACK BY . SAME Performed By: #### M 100.0401 #### [facility] [address] [place], [address] Urinalysis, Routine (Dipstic k)on 08-21-2024 BILIRUBIN URINE Negative Normal Negative [facility] Comment on above: Order Comment: MOODY CTOR TO SPECIFY Performed By: #### M 100.2200 #### [facility] [address] [place], [address] Clarity (U) Sl. Cloudy Normal Clear [facility] Comment on above: Order Comment: MOODY CTOR TO SPECIFY Performed By: #### M 100.2200 #### [facility] [address] [place], [address] Color (U) Yellow Normal Yellow [facility] Comment on above: Order Comment: MOODY CTOR TO SPECIFY Performed By: #### M 100.2200 #### [facility] [address] [place], [address] GLUCOSE, UR Normal Normal Normal [facility] Comment on above: Order Comment: MOODY CTOR TO SPECIFY Performed By: #### M 100.2200 #### [facility] [address] [place], [address] KETONE UR Negative Normal Negative [facility] Comment on above: Order Comment: MOODY CTOR TO SPECIFY Performed By: #### M 100.2200 #### [facility] [address] [place], [address] LEUK ESTERASE 100 /ul Abnormal Negative [facility] Comment on above: Order Comment: MOODY CTOR TO SPECIFY Performed By: #### M 100.2200 #### [facility] [address] [place], [address] Nitrite Ql (U) Negative Normal Negative [facility] Comment on above: Order Comment: MOODY CTOR TO SPECIFY Performed By: #### M 100.2200 #### [facility] [address] [place], [address] OCCULT BLOOD-UR Negative Normal Negative [facility] Comment on above: Order Comment: MOODY CTOR TO SPECIFY Performed By: #### M 100.2200 #### [facility] [address] [place], [address] pH UR 6.0 Normal 5.0 - 8.0 [facility] Comment on above: Order Comment: COLLE CTOR TO SPECIFY Performed By: #### M 100.2200 #### [facility] [address] [place], [address] PROT DIPSTX 15 mg/dl Abnormal Negative [facility] Comment on above: Order Comment: COLLE CTOR TO SPECIFY Performed By: #### M 100.2200 #### [facility] [address] [place], [address] SP.GR. DIPSTX 1.015 Normal 1.002-1.030 [facility] Comment on above: Order Comment: MOODY CTOR TO SPECIFY Performed By: #### M 100.2200 #### [facility] [address] [place], [address] UROBILI Normal Normal Normal [facility] Comment on above: Order Comment: COLLE CTOR TO SPECIFY Performed By: #### M 100.2200 #### [facility] [address] [place], [address] OB Triage Physician Noteon 1 10-05-2023 OB Triage Physician Note [facility] Medical Records Department [address] [place] [address] OB Triage Physician Note 08/04/24 1027 MR#: [id number] Acct: [id number] Name: ZAIN ROSE GALINDO Rep #: [id number] : 2005 19 From: Peggy Cedillo CNM PCP: Dr. Kuldeep Khan MD Status:DEP CLI Y Location: [facility] HPI - General General Date of Service: 08/03/24 HPI Narrative ZAIN ROSE, is a 19 F who presents at 24w1d presents to labor and delivery due to decreased movement. Offers no other complaints. Maternal Data Information BOGDAN Calculator Estimated Delivery Date Method Current WG Current Estimate 11/22/24 Manual 24w 2d PFSH PFSH Medical History ADHD Home Medications ???Medication ???Instructions ???Recorded ???Last Taken ???Type famotidine 20 mg tablet 20 mg PO BID 05/26/24 08/03/24 History nitrofurantoin 100 mg PO Q12H 7 days #14 caps 05/26/24 Unknown Rx monohydrate/macrocry stals 100 mg capsule (Macrobid) promethazine 25 mg tablet 25 mg PO Q6H PRN PRN nausea and 05/26/24 Unknown History vomiting ondansetron HCl 4 mg tablet 4 mg PO DAILY 08/03/24 07/30/24 History Allergy/AdvReac Type Severity Reaction Status Date / Time No Known Allergies Allergy Verified 08/03/24 23:35 Surgical History no surgical history Social History Smoking Status: Never smoker NST FHR Rate Baby A Baseline: 135 Variability:: Minimal Accelerations:: 10 x 10 Decelerations:: None Uterine Activity:: None Assessment Plan (1) Decreased movement: (2) 24 weeks gestation of : PLAN: Plan 1) heart tones normal 2) D/C home 08/04/24 1029 Date Peggy Sanford Signature (if applicable): Date _ CC: ESTELLA Cedillo; Dr. Kuldeep Khan MD Signed Normal [facility] Examination level ultrasound on 07-13-2024 Indication Cervical length Impression REMOTE READ -The patient presents for TVS for cervical length measurement to assess the patient's risk for . -Single, live, intrauterine . -The cervical length measures 23.8 mm (less than 25 mm) with no evidence of funneling or other dynamic changes. -Cervical lengths less than 25 mm in asymptomatic patients have been associated with delivery. Recommendations Vaginal progesterone ordered Recommend examination of cervix, if dilated then discuss cerclage, if not dilated then continue vaginal progesterone until 36 weeks with additional follow up as clinically indicated Maternal Assessment Height 168 cm Height (ft) 5 ft Height (in) 6 in Physical Exam Initial weight (lb) 158 lb Initial BMI 25.50 kg/m Maternal assessment other: 1 Para 0 Growth Overview Exam date GA BPD (mm) HC (mm) AC (mm) FL (mm) HL (mm) EFW (g) 06/30/2024 20w 2d 45 22% 168.4 25% 162.6 77% 29.3 20% 29.7 32% 336 38% Method Transabdominal and transvaginal ultrasound examination. View: Adequate visualization Menezes . Number of fetuses: 1 Dating LMP on: 2024 GA by LMP 22 w + 1 d BOGDAN by LMP: 11/15/2024 GA by prior assessment 22 w + 1 d BOGDAN by prior assessment: 11/15/2024 Assigned: based on stated BOGDAN, selected on 07/13/2024 Assigned GA 22 w + 1 d Assigned BOGDAN: 11/15/2024 General Evaluation Cardiac activity present. FHR 135 bpm. movements: present. Presentation: breech Placenta: Placental site: anterior, fundal Umbilical cord: Cord vessels: 3 vessel cord Amniotic fluid: Amount of AF: normal amount. MVP 4.0 cm Anatomy Lateral ventricles: normal Choroid plexus: normal Profile: normal 4-chamber view: normal RVOT view: normal LVOT view: normal 3-vessel view: normal Heart / Thorax Situs: situs solitus (normal) Stomach: normal Kidneys: normal Bladder: normal sex: female Wants to know sex: yes Maternal Structures Uterus / Cervix Uterus: Visualized Cervix: Visualized Approach: Transvaginal Cervical length 23.8 mm Ovaries / Tubes / Adnexa Rt ovary: Visualized Lt ovary: Not visualized Performed By: Matt Lugo RDMS, RVT Read By: Mia Valdivia M.D. MATERNAL MEDICINE [facility] Radiology Study observation (narrative) [facility] Examination level ultrasound on 06-30-2024 Indication Standard anatomic survey Impression REMOTE READ The patient is referred for a standard anatomic survey. - Single, live, intrauterine . - biometry is consistent with the established gestational age. - No malformations were visualized on a complete standard anatomic survey. - The amniotic fluid volume is normal amount. - The placenta is anterior, fundal. - The Transvaginal cervical length measures 29.1 mm with no evidence of funneling or other dynamic changes. - Not all structural malformations can be detected by ultrasound examination. Recommendations Return in 1-2 weeks for cervical length Maternal Assessment Height 168 cm Height (ft) 5 ft Height (in) 6 in Physical Exam Initial weight (lb) 158 lb Initial BMI 25.50 kg/m Maternal assessment other: 1 Para 0 Method Transabdominal and transvaginal ultrasound examination. View: Suboptimal view: limited by position Menezes . Number of fetuses: 1 Dating LMP on: 2024 GA by LMP 20 w + 2 d BOGDAN by LMP: 11/15/2024 GA by prior assessment 20 w + 2 d BOGDAN by prior assessment: 11/15/2024 Ultrasound examination on: 06/30/2024 GA by U/S based upon: AC, BPD, Femur, HC GA by U/S 19 w + 6 d BOGDAN by U/S: 11/18/2024 Assigned: based on stated BOGDAN, selected on 06/30/2024 Assigned GA 20 w + 2 d Assigned BOGDAN: 11/15/2024 General Evaluation Cardiac activity present. FHR 135 bpm. movements: present. Presentation: cephalic Placenta: Placental site: anterior, fundal Umbilical cord: Cord vessels: 3 vessel cord Amniotic fluid: Amount of AF: normal amount. MVP 3.5 cm Growth Overview Exam date GA BPD (mm) HC (mm) AC (mm) FL (mm) HL (mm) EFW (g) 06/30/2024 20w 2d 45 22% 168.4 25% 162.6 77% 29.3 20% 29.7 32% 336 38% Biometry Standard BPD 45.0 mm 19w 4d 22% Hadlock OFD 59.9 mm 19w 3d 30% Nicolaides HC 168.4 mm 19w 3d 25% Muna Cerebellum tr 20.6 mm 19w 5d 51% Hill Nuchal fold 4.9 mm AC 162.6 mm 21w 2d 77% Hadlock Femur 29.3 mm 19w 1d 20% Muna Humerus 29.7 mm 19w 5d 32% Muna EFW 336 g 20w 0d 38% Hadlock EFW (lb) 0 lb EFW (oz) 12 oz EFW by: Hadlock (HC-AC-FL) Extended [employer] Work[employer] 6.1 mm CM 4.7 mm 37% Nicolaides Extremities / Bony Struc FL / HC 0.17 4% Hadlock Other Structures FHR 135 bpm Anatomy Cranium: normal Lateral ventricles: normal Choroid plexus: normal Midline falx: normal Cavum septi pellucidi: normal Cerebellum: normal Cisterna magna: normal Head / Neck Vermis: Normal but not required for a standard anatomy exam Neck: Normal but not required for a standard anatomy exam Nuchal fold: Normal but not required for a standard anatomy exam Lips: normal Profile: Normal but not required for a standard anatomy exam Nose: Normal but not required for a standard anatomy exam Face Maxilla: Normal but not required for a standard anatomy exam Mandible: Normal but not required for a standard anatomy exam Orbits: Normal but not required for a standard anatomy exam Lens: Normal but not required for a standard anatomy exam 4-chamber view: normal RVOT view: normal LVOT view: normal 3-vessel view: normal 5-ybisnd-ckhgxcj view: normal Heart / Thorax Situs: situs solitus (normal) Aortic arch view: Normal but not required for a standard anatomy exam SVC: Normal but not required for a standard anatomy exam IVC: Normal but not required for a standard anatomy exam Cardiac axis: normal Rt lung: Normal but not required for a standard anatomy exam Lt lung: Normal but not required for a standard anatomy exam Diaphragm: Normal but not required for a standard anatomy exam Cord insertion: normal Stomach: normal Kidneys: normal Bladder: normal Genitals: normal Abdomen Abdom. wall: normal Cervical spine: normal Thoracic spine: normal Lumbar spine: normal Sacral spine: normal Arms: normal Legs: normal Rt upper arm: normal Rt forearm: normal Rt hand: normal Rt fingers: normal Lt upper arm: normal Lt forearm: normal Lt hand: normal Lt fingers: normal Rt upper leg: normal Rt lower leg: normal Rt foot: normal Lt upper leg: normal Lt lower leg: normal Lt foot: normal sex: female Wants to know sex: yes Maternal Structures Uterus / Cervix Uterus: Visualized Cervix: Visualized Approach: Transvaginal Cervical length 29.1 mm Ovaries / Tubes / Adnexa Rt ovary: Visualized Lt ovary: Visualized Performed By: Matt Lugo RDMS, RVT Read By: Mia Valdivia M.D. MATERNAL MEDICINE [facility] Radiology Study observation (narrative) [facility] SEQUENTIAL SCN SECOND TRIMon 06-05-2024 AFP [Mass/Vol] 39.4 ng/mL Normal [facility] Comment on above: Order Comment: Speci men Type: BLOOD SPECIMENOrdering Facility: [facility] Address: [address] [place] [address] Performed By: #### S EQ2 ####[facility] LABCLIA [id number] [place] [address] AFP adjusted [MoM] 1.22 Normal [facility] Comment on above: Order Comment: Speci men Type: BLOOD SPECIMENOrdering Facility: [facility] Address: [address] [place] [address] Performed By: #### S EQ2 ####[facility] LABCLIA [id number] [place] [address] Age at delivery 19.8 [age] Normal [facility] Comment on above: Order Comment: Speci men Type: BLOOD SPECIMENOrdering Facility: [facility] Address: [address] [place] [address] Performed By: #### S EQ2 ####[facility] LABCLIA [id number] [place] [address] Collection date (Specimen) Date: Normal [facility] Comment on above: Order Comment: Speci men Type: BLOOD SPECIMENOrdering Facility: [facility] Address: [address] [place] [address] Result Comment: 05/19 Performed By: #### S EQ2 ####[facility] LABCLIA [id number] [place] [address] E3.unconjugated [Mass/Vol] 0.97 ng/mL Normal [facility] Comment on above: Order Comment: Speci men Type: BLOOD SPECIMENOrdering Facility: [facility] Address: [address] [place] [address] Performed By: #### S EQ2 ####[facility] LABCLIA [id number] [place] [address] E3.unconjugated adjusted [MoM] 1.13 Normal [facility] Comment on above: Order Comment: Speci men Type: BLOOD SPECIMENOrdering Facility: [facility] Address: [address] [place] [address] Performed By: #### S EQ2 ####[facility] LABCLIA [id number] [place] [address] [place] Rump length US 67.7 mm Normal [facility] Comment on above: Order Comment: Speci men Type: BLOOD SPECIMENOrdering Facility: [facility] Address: [address] [place] [address] Performed By: #### S EQ2 ####[facility] LABCLIA [id number] [place] [address] Nuchal fold [Multiple of the median] Thickness US 0.86 Normal [facility] Comment on above: Order Comment: Speci men Type: BLOOD SPECIMENOrdering Facility: [facility] Address: [address] [place] [address] Performed By: #### S EQ2 ####[facility] LABCLIA [id number] [place] [address] Nuchal fold Thickness US 1.3 mm Normal [facility] Comment on above: Order Comment: Speci men Type: BLOOD SPECIMENOrdering Facility: [facility] Address: [address] [place] [address] Performed By: #### S EQ2 ####[facility] LABCLIA [id number] [place] [address] First and Second trimester integrated maternal screen [Interp] Comment Normal [facility] Comment on above: Order Comment: Speci men Type: BLOOD SPECIMENOrdering Facility: [facility] Address: [address] [place] [address] Result Comment: Scre en Negative for Open Spina Bifida. Comment Screen Negative for Down syndrome Comment Screen Negative for Trisomy 18 Performed By: #### S EQ2 ####[facility] LABCLIA [id number] [place] [address] FIRST TRIMESTER SAMPLE Comment Normal [facility] Comment on above: Order Comment: Speci men Type: BLOOD SPECIMENOrdering Facility: [facility] Address: [address] [place] [address] Performed By: #### S EQ2 ####[facility] LABCLIA [id number] [place] [address] Gestational age 16.1 weeks Normal [facility] Comment on above: Order Comment: Speci men Type: BLOOD SPECIMENOrdering Facility: [facility] Address: [address] [place] [address] Performed By: #### S EQ2 ####[facility] LABCLIA [id number] [place] [address] HCG adjusted [MoM] 1.03 Normal [facility] Comment on above: Order Comment: Speci men Type: BLOOD SPECIMENOrdering Facility: [facility] Address: [address] [place] [address] Performed By: #### S EQ2 ####[facility] LABCLIA [id number] [place] [address] HCG Qn 37.1 IU/mL Normal [facility] Comment on above: Order Comment: Speci men Type: BLOOD SPECIMENOrdering Facility: [facility] Address: [address] [place] [address] Performed By: #### S EQ2 ####[facility] LABCLIA [id number] [place] [address] Inhibin A [Mass/Vol] 113.4 pg/mL Normal [facility] Comment on above: Order Comment: Speci men Type: BLOOD SPECIMENOrdering Facility: [facility] Address: [address] [place] [address] Performed By: #### S EQ2 ####[facility] LABCLIA [id number] [place] [address] Inhibin A adjusted [MoM] 0.68 Normal [facility] Comment on above: Order Comment: Speci men Type: BLOOD SPECIMENOrdering Facility: [facility] Address: [address] [place] [address] Performed By: #### S EQ2 ####[facility] LABCLIA [id number] [place] [address] Insulin dependent diabetes mellitus Ql No Normal [facility] Comment on above: Order Comment: Speci men Type: BLOOD SPECIMENOrdering Facility: [facility] Address: [address] [place] [address] Performed By: #### S EQ2 ####[facility] LABCLIA [id number] [place] [address] Laboratory comment Idris (Report) Comment Normal [facility] Comment on above: Order Comment: Speci men Type: BLOOD SPECIMENOrdering Facility: [facility] Address: [address] [place] [address] Result Comment: The [employer] recommends that all women be counseled regarding the differences between screening and invasive diagnostic testing. Performed By: #### S EQ2 ####[facility] LABCLIA [id number] [place] [address] Mother's race Normal [facility] Comment on above: Order Comment: Speci men Type: BLOOD SPECIMENOrdering Facility: [facility] Address: [address] [place] [address] Performed By: #### S EQ2 ####[facility] LABCLIA [id number] [place] [address] Neural tube defect risk Qn (fetus) Screening Risk: Normal [facility] Comment on above: Order Comment: Speci men Type: BLOOD SPECIMENOrdering Facility: [facility] Address: [address] [place] [address] Result Comment: [id number] Performed By: #### S EQ2 ####[facility] LABCLIA [id number] [place] [address] NOTE: Comment Normal [facility] Comment on above: Order Comment: Speci men Type: BLOOD SPECIMENOrdering Facility: [facility] Address: [address] [place] [address] Result Comment: Tere garcia verify all clinical data used in this risk assessment and call [phone] with any corrections. Esperanza Kennedy, Ph.D., [facility] Director References: Available upon request Open Spina Bifida (OSB) MoM Cutoffs Menezes 2.5 Black 2.8 IDD 2.0 Twins 4.5 Risk Cutoffs Down Syndrome (DS) cutoff 1:270 Trisomy 18 (T18) cutoff 1:100 For further inquiries contact [employer] Customer Service at [phone]. This test was developed and its performance characteristics determined by [employer]. It has not been cleared or approved by the Food and Drug Administration. Performed By: #### S EQ2 ####[facility] LABCLIA [id number] [place] [address] Number of fetuses by US 1 Normal C [facility] Comment on above: Order Comment: Speci men Type: BLOOD SPECIMENOrdering Facility: [facility] Address: [address] [place] [address] Performed By: #### S EQ2 ####[facility] LABCLIA [id number] [place] [address] associated plasma protein A [Mass/Vol] 1027.4 ng/mL Normal [facility] Comment on above: Order Comment: Speci men Type: BLOOD SPECIMENOrdering Facility: [facility] Address: [address] [place] [address] Performed By: #### S EQ2 ####[facility] LABCLIA [id number] [place] [address] associated plasma protein A adjusted [MoM] 0.88 Normal [facility] Comment on above: Order Comment: Speci men Type: BLOOD SPECIMENOrdering Facility: [facility] Address: [address], [place] [address] Performed By: #### S EQ2 ####[facility] LABCLIA [id number] [place] [address] RESULTS Report Normal [facility] Comment on above: Order Comment: Speci men Type: BLOOD SPECIMENOrdering Facility: [facility] Address: [address] [place] [address] Performed By: #### S EQ2 ####[facility] LABCLIA [id number] [place] [address] SECOND TRIMESTER SAMPLE Comment Normal [facility] Comment on above: Order Comment: Speci men Type: BLOOD SPECIMENOrdering Facility: [facility] Address: [address] [place] [address] Performed By: #### S EQ2 ####[facility] LABCLIA [id number] [place] [address] Activity Therapist [Identifier] [id number] Normal [facility] Comment on above: Order Comment: Speci men Type: BLOOD SPECIMENOrdering Facility: [facility] Address: [address] [place] [address] Performed By: #### S EQ2 ####[facility] LABCLIA [id number] [place] [address] Trisomy 18 risk Based on maternal age Qn (fetus) Age Risk: Normal [facility] Comment on above: Order Comment: Speci men Type: BLOOD SPECIMENOrdering Facility: [facility] Address: [address] [place] [address] Result Comment: [id number] Performed By: #### S EQ2 ####[facility] LABCLIA [id number] [place] [address] Trisomy 18 risk Qn (fetus) Screening Risk: Normal [facility] Comment on above: Order Comment: Speci men Type: BLOOD SPECIMENOrdering Facility: [facility] Address: [address] [place], [place] [id number] Result Comment: <1 [place] n [id number] Performed By: #### S EQ2 ####[facility] LABCLIA [id number] [place] [address] Trisomy 21 risk Based on maternal age Qn (fetus) Age Risk: Normal [facility] Comment on above: Order Comment: Ana hartley Type: BLOOD SPECIMENOrdering Facility: [facility] Address: [address] [place] [address] Result Comment: 1 in 1144 Performed By: #### S EQ2 ####[facility] LABCLIA [id number] [place] [address] Trisomy 21 risk Qn (fetus) Screening Risk: Normal [facility] Comment on above: Order Comment: Ana hartley Type: BLOOD SPECIMENOrdering Facility: [facility] Address: [address] [place] [address] Result Comment: <1 i n [id number] Performed By: #### S EQ2 ####[facility] LABCLIA [id number] [place] [address] Ultrasound date Date: Normal [facility] Comment on above: Order Comment: Ana hartley Type: BLOOD SPECIMENOrdering Facility: [facility] Address: [address] [place] [address] Result Comment: 04/20 Performed By: #### S EQ2 ####[facility] LABCLIA [id number] [place] [address] CNPLynsey 05-28-2024 [facility]UP[facility] ZAIN ROSE ([id number]) 5 F Date Time Provider Department 05/28/24 SETH CASTRO During your visit today, we recorded the following information about you: Alison Yu RN 05/28/2024 3:07 PM Signed 15w4d [facility] nurse called to give the office an update. See 05/26/24 phone note. Patient still scores high on the depression screen, but has no plan. No changes since Saturday. However, her urine ketones are 2+. [facility] nurse asking if our office has a plan in place for her to receive IV fluids. Patient last seen 05/22 for a NOB visit. BOZENA Raymond Courtney, APRN.CNM 05/28/2024 3:12 PM Signed There should be orders for IV fluids on the [facility] order set? They can give her IV fluids if they feel necessary. She currently is being treated for UTI as well. Is she unable to keep fluids down orally? NICOLÁS Cedillo Trisha, RN 05/28/2024 3:26 PM Signed The signed [facility] order only states to add hydration with D5LR at start of care for 500mL bolus then 125mL/hr up to 4 days. No further fluid order included for the rest of duration she is under their care. BOZENA Washington Courtney, APRN.CNM 05/28/2024 3:31 PM Signed I will fill out order sheet to fax to them. NICOLÁS Cedillo Trisha, RN 05/28/2024 4:02 PM Signed Spoke to [facility] nurse. Typically they only do the initial IV therapy when started on the Zofran pump as ordered. She is going to check with her administration to see if they will approve a second round of IV fluids for patient. She is going to call the back line back once she gets their response. BOZENA Washington Trisha, RN 05/28/2024 4:55 PM Signed [facility] nurse called back and got approval for IV fluids to be started tomorrow. She will type up order and fax to office to be signed and faxed back. Spoke to patient and she is aware too. Stated she already spoke to her nurse and it is scheduled for tomorrow. Edilberto Bailey RN Allergies As of Date: 05/28/2024 (No Known Allergies) Date Reviewed: 05/25/2024 Reviewed by: Franco Caal APRN.HOG BUYER - Fully Assessed Reason for Visit: Patient Update [1234] Prescriptions as of 05/28/2024 - ondansetron (ZOFRAN) 4 mg tablet Take 4 mg by mouth every 8 hours as needed for nausea/vomiting. - promethazine (PHENERGAN) 25 mg tablet Take 1 tablet by mouth every 6 hours as needed. - pantoprazole DR (PROTONIX) 20 mg tablet Take 1 tablet by mouth once daily. - PNV/iron,carb/docusa t/folic ac (PRENA-CAP ORAL) Take 1 tablet by mouth once daily. Problem List As Of Date 05/28/2024 Noted Resolved ADHD (attention deficit hyperactivity disorder)*08/28/2011 with uncertain dates in first trimest*03/27/2024 Supervision of high risk in second tr*03/27/2024 Family history of deafness [Z82.2] 03/27/2024 Hyperemesis gravidarum [O21.0] 03/27/2024 Heartburn during in second trimester *03/27/2024 Anxiety during [O99.340, F41.9] 03/27/2024 Depression affecting in second trimes*05/22/2024 Encounter Status:Closed by SETH CASTRO on 05/28/24 Normal [facility] Urine Cultureon 05-28-2024 [facility] Escherichia coli [place] Count 11,000-25,000 Mixed Gram Pos Gram Neg Org Mixed Gram Pos Gram Neg Org MIXC Mixed contaminants. Submit a new specimen if indicated. Escherichia coli: REACTION Ampicillin Islt LUCIA >=32 Ampicillin+Sulbac Islt LUCIA >=32 R ceFAZolin Islt LUCIA 16 Cefepime Islt LUCIA <=0.12 S cefTRIAXone Islt LUCIA <=0.25 S Ciprofloxacin Islt LUCIA <=0.25 S B-Lactamase Extended Susc Islt NEG Gentamicin Islt LUCIA >=16 R Imipenem Islt LUCIA <=0.25 S levoFLOXacin Islt LUCIA <=0.12 S Nitrofurantoin Islt LUCIA <=16 S Pip+Tazo Islt LUCIA 64 R Tobramycin Islt LUCIA 8 R TMP SMX Islt LUCIA >=320 R Normal [facility] Comment on above: Performed By: #### M 100.347 #### [facility] [address] [place], [address] Satish 05-27-2024 CNPN Telephone (UCWSTR) ZAIN ROSE Dania ([id number]) 5 F Date Time Provider Department 05/27/24 MIGUEL DYER [facility] During your visit today, we recorded the following information about you: Berenice Hoover MA 05/27/2024 8:00 AM Signed ----- Message from Miguel Dyer APRN.HOG BUYER sent at 05/27/2024 7:54 AM EDT ----- Please advise patient the urine culture was negative. Follow instructions given by provider at visit, f/u with DISPOSAL PLANT OPERATOR if symptoms persist or worsen. Berenice Hoover MA 05/27/2024 8:04 AM Signed Patient notified of results, verbalized understanding and mentioned she went to ER for other causes last night and they did run another urinalysis to which they diagnosed her with a UTI, so she is being treated with atb that was prescribed by [facility]. Instructed to follow up with DISPOSAL PLANT OPERATOR upon completion of medication to ensure symptoms have resolved. Berenice Hoover MA Allergies As of Date: 05/27/2024 (No Known Allergies) Date Reviewed: 05/25/2024 Reviewed by: Franco Caal APRN.HOG BUYER - Fully Assessed Prescriptions as of 05/27/2024 - ondansetron (ZOFRAN) 4 mg tablet Take 4 mg by mouth every 8 hours as needed for nausea/vomiting. - promethazine (PHENERGAN) 25 mg tablet Take 1 tablet by mouth every 6 hours as needed. - pantoprazole DR (PROTONIX) 20 mg tablet Take 1 tablet by mouth once daily. - PNV/iron,carb/docusa t/folic ac (PRENA-CAP ORAL) Take 1 tablet by mouth once daily. Problem List As Of Date 05/27/2024 Noted Resolved ADHD (attention deficit hyperactivity disorder)*08/28/2011 with uncertain dates in first trimest*03/27/2024 Supervision of high risk in second tr*03/27/2024 Family history of deafness [Z82.2] 03/27/2024 Hyperemesis gravidarum [O21.0] 03/27/2024 Heartburn during in second trimester *03/27/2024 Anxiety during [O99.340, F41.9] 03/27/2024 Depression affecting in second trimes*05/22/2024 Encounter Status:Closed by BERENICE HOOVER on 05/27/24 Normal [facility] Basic Metabolic Profile (BMP )on 05-26-2024 BUN/CRE 7.5 RATIO Low 10-20 [facility] Comment on above: Performed By: #### L 100.0100, L500.2500 #### [facility] [address] [place], [address] CA,Total 9.6 mg/dL Normal 8.5-10.1 [facility] Comment on above: Performed By: #### L 100.0100, L500.2500 #### [facility] [address] [place], [address] Chloride [Moles/Vol] 105 mmol/L Normal 98-107 [facility] Comment on above: Performed By: #### L 100.0100, L500.2500 #### [facility] [address] [place], [address] CO2 [Moles/Vol] 24.0 mmol/L Normal 21.0-32.0 [facility] Comment on above: Performed By: #### L 100.0100, L500.2500 #### [facility] [address] [place], [address] Creatinine [Mass/Vol] 0.53 mg/dL Low 0.55-1.02 [facility] Comment on above: Result Comment: The validity of the calculated GFR GFRAA in patients over 70 years has not been determined. Clinical correlation is essential. Performed By: #### L 100.0100, L500.2500 #### [facility] [address] [place], [address] ECRCL 159.83 ml/min Normal [facility] Comment on above: Performed By: #### L 100.0100, L500.2500 #### [facility] [address] [place], [address] EST GFR - AA 190 mL/min Normal >60 [facility] Comment on above: Result Comment: Afri can Bahamian GFR Calc Performed By: #### L 100.0100, L500.2500 #### [facility] [address] [place], [address] GAP 9 Normal 5-15 [facility] Comment on above: Performed By: #### L 100.0100, L500.2500 #### [facility] [address] [place], [address] GFR/1.73 sq M.predicted among non-blacks MDRD (S/P/Bld) [Vol rate/Area] 157 mL/min/{1.73_m2} Normal >60 [facility] Comment on above: Result Comment: Non- GFR Calc Performed By: #### L 100.0100, L500.2500 #### [facility] [address] [place], [address] Glucose [Mass/Vol] 94 mg/dL Normal 74-106 [facility] Comment on above: Performed By: #### L 100.0100, L500.2500 #### [facility] [address] [place], [address] Potassium [Moles/Vol] 3.7 mmol/L Normal 3.5-5.1 [facility] Comment on above: Performed By: #### L 100.0100, L500.2500 #### [facility] [address] [place], [address] Sodium [Moles/Vol] 137 mmol/L Normal 136-145 [facility] Comment on above: Performed By: #### L 100.0100, L500.2500 #### [facility] [address] [place], [address] Urea nitrogen [Mass/Vol] 4 mg/dL Low 7-18 [facility] Comment on above: Performed By: #### L 100.0100, L500.2500 #### [facility] [address] [place], [address] CBC W/Diff, Automatedon 10-0 8-2024 Absolute Lymph 1.19 X10 3/uL Normal 0.83-4.51 [facility] Comment on above: Performed By: #### L 100.0100, L500.2500 #### [facility] [address] [place], [address] Absolute Neut 14.3 X10 3/uL High 2.0-7.7 [facility] Comment on above: Performed By: #### L 100.0100, L500.2500 #### [facility] [address] [place], [address] Basophils/100 WBC (Bld) 0.5 % Normal 0-1 [facility] Comment on above: Performed By: #### L 100.0100, L500.2500 #### [facility] [address] [place], [address] Eosinophils/100 WBC (Bld) 0.2 % Normal 0-5 [facility] Comment on above: Performed By: #### L 100.0100, L500.2500 #### [facility] [address] [place], [address] Erythrocyte distribution width (RBC) [Ratio] 12.5 % Normal 11.6-14.6 [facility] Comment on above: Performed By: #### L 100.0100, L500.2500 #### [facility] [address] [place], [address] Hematocrit (Bld) [Volume fraction] 42.0 % Normal 37-47 [facility] Comment on above: Performed By: #### L 100.0100, L500.2500 #### [facility] [address] [place], [address] Hemoglobin (Bld) [Mass/Vol] 13.8 g/dL Normal 12.0-15.0 [facility] Comment on above: Performed By: #### L 100.0100, L500.2500 #### [facility] [address] [place], [address] IG% 0.500 Normal 0.0-0.9 [facility] Comment on above: Result Comment: IG% - Immature Granulocytes (promyelocytes, myelocytes and metamyelocytes) > 1% indicates that a LEFT SHIFT is Present. Performed By: #### L 100.0100, L500.2500 #### [facility] [address] [place], [address] Lymphocytes/100 WBC (Bld) 7.2 % Low 19-41 [facility] Comment on above: Performed By: #### L 100.0100, L500.2500 #### [facility] [address] [place], [address] MCH (RBC) [Entitic mass] 28.3 pg Normal 27.0-32.0 [facility] Comment on above: Performed By: #### L 100.0100, L500.2500 #### [facility] [address] [place], [address] MCHC (RBC) [Mass/Vol] 32.9 g/dL Normal 32-36 [facility] Comment on above: Performed By: #### L 100.0100, L500.2500 #### [facility] [address] [place], [address] MCV (RBC) [Entitic vol] 86.1 fL Normal 81-99 [facility] Comment on above: Performed By: #### L 100.0100, L500.2500 #### [facility] [address] [place], [address] Monocytes/100 WBC (Bld) 5.3 % Normal 0-10 [facility] Comment on above: Performed By: #### L 100.0100, L500.2500 #### [facility] [address] [place], [address] Neutrophils/100 WBC (Bld) 86.3 % High 47-70 [facility] Comment on above: Performed By: #### L 100.0100, L500.2500 #### [facility] [address] [place], [address] Nucleated RBC (Bld) [#/Vol] 0 10*3/uL Normal 0-5 [facility] Comment on above: Performed By: #### L 100.0100, L500.2500 #### [facility] [address] [place], [address] Platelet mean volume (Bld) [Entitic vol] 10.8 fL Normal 6.2-12.0 [facility] Comment on above: Performed By: #### L 100.0100, L500.2500 #### [facility] [address] [place], [address] Platelets (Bld) [#/Vol] 279 10*3/uL Normal 150-450 [facility] Comment on above: Performed By: #### L 100.0100, L500.2500 #### [facility] [address] [place], [address] RBC (Bld) [#/Vol] 4.88 10*6/uL Normal 4.2-5.4 [facility] Comment on above: Performed By: #### L 100.0100, L500.2500 #### [facility] [address] [place], [address] RDW SD 39.3 fl Normal 35.1-43.9 [facility] Comment on above: Performed By: #### L 100.0100, L500.2500 #### [facility] [address] [place], [address] WBC (Bld) [#/Vol] 16.6 10*3/uL High 4.4-11.0 [facility] Comment on above: Performed By: #### L 100.0100, L500.2500 #### [facility] [address] [place], [address] CNPNon 05-26-2024 [facility] ZAIN RO[facility] ([id number]) 5 F Date Time Provider Department 05/26/24 BELLE CARRILLO OBGYWM During your visit today, we recorded the following information about you: Edilberto Bailey, RN 05/26/2024 12:08 PM Signed 15w2d [facility] nurse calling with update. Stated depression screening was high again and she had to report it. Stated patient is still having thoughts of harming self, but no plan in place. She saw on 05/22 for depression and refused medication then. She has not called the counseling center to schedule with a counselor yet either. I called the patient then and she stated all the above. She plans to call the counselor today to establish care with them. She still has crisis hotline if needed. Feels she has good support and her symptoms have not worsened since she saw last week. Offered sooner appointment if needed here and patient declined. Advised if she changes her mind regarding medication to call office back and encouraged her to call counselor today to schedule an appointment. Patient agreed. Edilberto Bailey RN Belle Carrillo MD 05/26/2024 5:54 PM Signed Thank you for reaching out to her and agree w/ this plan. Belle Carrillo MD Allergies As of Date: 05/26/2024 (No Known Allergies) Date Reviewed: 05/25/2024 Reviewed by: Franco Caal APRN.HOG BUYER - Fully Assessed Reason for Visit: Patient Update [1234] Prescriptions as of 05/26/2024 - ondansetron (ZOFRAN) 4 mg tablet Take 4 mg by mouth every 8 hours as needed for nausea/vomiting. - promethazine (PHENERGAN) 25 mg tablet Take 1 tablet by mouth every 6 hours as needed. - pantoprazole DR (PROTONIX) 20 mg tablet Take 1 tablet by mouth once daily. - PNV/iron,carb/docusa t/folic ac (PRENA-CAP ORAL) Take 1 tablet by mouth once daily. Problem List As Of Date 05/26/2024 Noted Resolved ADHD (attention deficit hyperactivity disorder)*08/28/2011 with uncertain dates in first trimest*03/27/2024 Supervision of high risk in second tr*03/27/2024 Family history of deafness [Z82.2] 03/27/2024 Hyperemesis gravidarum [O21.0] 03/27/2024 Heartburn during in second trimester *03/27/2024 Anxiety during [O99.340, F41.9] 03/27/2024 Depression affecting in second trimes*05/22/2024 Encounter Status:Closed by BELLE CARRILLO on 05/26/24 Normal [facility] Emergency Department Summary on 05-26-2024 Emergency Department Summary [facility] Medical Records Department [address] [place] [address] Emergency Department Summary 05/26/24 MR#: [id number] Acct: [id number] Name: ELVERZAIN GALINDO Rep #: [id number] : 2005 19 From: Addie Bustos DO PCP: Dr. Kuldeep Khan MD Status:DEP ER Location: ED HPI History of Present Illness Chief Complaint: Dizziness Detail of Chief Complaint: Dizziness and near syncope Informant: patient Narrative Narrative: Patient presents the emergency department complaint of dizziness and feeling like she could pass out. 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 She did sit down. She has had similar episodes in the past but they have passed quickly and this time it is just not passing. She denies headache. Patient is 15 weeks . Patient states that she is on continuous Zofran because she has had hyperemesis and had lost about 25 pounds related to vomiting and dehydration. Patient states she has actually not thrown up in over 5 days and does not think she is dehydrated. She denies recent illness otherwise. She has had no abdominal pain or vaginal bleeding. Patient states that she has had some dysuria and yesterday was tested for a UTI but has not had her results yet. [facility] Medical History ADHD Home Medications ???Medication ???Instructions ???Recorded ???Last Taken ???Type famotidine 20 mg tablet 20 mg PO BID 05/26/24 Unknown History nitrofurantoin 100 mg PO Q12H 7 days #14 caps 05/26/24 Unknown Rx monohydrate/macrocry stals 100 mg capsule (Macrobid) promethazine 25 mg tablet 25 mg PO Q6H PRN PRN nausea and 05/26/24 Unknown History vomiting Allergy/AdvReac Type Severity Reaction Status Date / Time No Known Allergies Allergy Verified 05/26/24 17:44 Surgical History no surgical history Social History Smoking Status: Never smoker ROS ROS ED Review of Systems ROS Unobtainable: other Constitutional Constitutional ED: Reports lethargy; Denies chills, fever(s), sweats or weight loss Eyes Eyes: Denies blurry vision, change in vision or diplopia ENT ENT ED: Denies rhinorrhea or sore throat Cardiovascular Cardiovascular: Denies chest pain, orthopnea or racing heartbeat Respiratory/Chest Respiratory/Chest: Denies cough, dyspnea, dyspnea on exertion, orthopnea or sputum Gastrointestinal Gastrointestinal: Denies abdominal pain, diarrhea, nausea or vomiting Genitourinary Genitourinary ED: Denies dysuria, hematuria or urinary frequency Musculoskeletal Musculoskeletal: Denies arthralgias, back pain, myalgias or neck pain Integumentary Denies abscess, Abrasions or rash Neurologic Neurologic: Reports other Details: Dizziness and near syncope ; Denies headache(s) or weakness Psychiatric Psychiatric: Denies anxiety, depression or suicidal thoughts Endocrine Endocrinology: Denies polydipsia, polyphagia or polyuria Hematologic/Lymphati c Hematologic/Lymphati c: Denies easy bleeding, easy bruising or lymphadenopathy Allergic/Immunologic Allergic/Immunologic ED: Denies mouth swelling, tongue swelling or urticaria EXAM Physical Exam Const Vital Signs: 05/26/24 17:40 05/26/24 18:14 Temperature 98.4 F Temperature Source Oral Pulse Rate 82 Pulse Rate [Lying] 77 Pulse Rate [Sitting (for 1 minute prior to obtaining)] 76 Pulse Rate [Standing (for 1 minute prior to obtaining)] 100 Respiratory Rate 16 Blood Pressure 110/80 Blood Pressure [Lying] 114/63 Blood Pressure [Sitting (for 1 minute prior to obtaining)] 114/75 Blood Pressure [Standing (for 1 minute prior to obtaining)] 110/83 H Blood Pressure Mean 90 Blood Pressure Mean [Lying] 80 Blood Pressure Mean [Sitting (for 1 minute prior to obtaining)] 88 Blood Pressure Mean [Standing (for 1 minute prior to obtaining)] 92 Pulse Ox 99 Oxygen Delivery Method Room Air Positive well nourished and well developed General Appearance ED: well developed and NAD HEENT Reports TM's clear and moist mucous membranes normocephalic and atraumatic; Negative for trauma or tenderness Tympanic Membrane ED: Yes TM's clear Eyes PERRL and EOMs intact bilaterally General Eye ED: Negative for pale conjunctiva or scleral icterus Neck no lymphadenopathy, supple and no JVD General: Negative for tenderness Chest Wall inspection of chest normal and palpation of chest normal Chest: Negative for tenderness Resp normal respiratory effort and clear to auscultation bilaterally Effort and Inspection: Negative for respiratory distress or pain with movement Auscultation: Negative for rhonchi, wheezes or diminished lung sounds (more content not included)... Normal [facility] Urinalysis, Completeon 05-26 Mucus Ql (Urine sed) 1+ /hpf Normal [facility] Comment on above: Order Comment: CLEAN CATCH Performed By: #### L 400.0001 #### [facility] [address] [place], [address] BACTERIA 3+ /hpf Normal None Seen [facility] Comment on above: Order Comment: CLEAN CATCH Performed By: #### L 400.0001 #### [facility] [address] [place], [address] WBC 5-10 SEEN Normal 0-5 [facility] Comment on above: Order Comment: CLEAN CATCH Performed By: #### L 400.0001 #### [facility] [address] [place], [address] EPI,SQUAMOUS 0-5 SEEN Normal 5-10 [facility] Comment on above: Order Comment: CLEAN CATCH Performed By: #### L 400.0001 #### [facility] [address] [place], [address] RBC 0 SEEN Normal 0-5 [facility] Comment on above: Order Comment: CLEAN CATCH Performed By: #### L 400.0001 #### [facility] [address] [place], [address] Bacteria Ur Culton 4 Bacteria identified Cx Nom (U) ORGANISM ID: 1 10,000 -<50,000 CFU/ml Normal urogenital yeny Normal [facility] Comment on above: Performed By: #### 6 30-4 ####[facility] [id number] [address] [place] CNOVon 05-25-2024 CNOV Office Visit (UCWSTR) ZAIN ROSE ([id number]) 5 F Date Time Provider Department 05/25/24 6:30 PM FRANCO CAAL UCWSTR During your visit today, we recorded the following information about you: Temperature Pulse Respiration Blood pressure 98.5 degrees 88/minute 16/minute 110/68 Weight 66.4 kg Franco Caal APRN.HOG BUYER 05/25/2024 6:49 PM Signed Subjective HPI Nontoxic-appearing 15-week female presents urgent care chief complaint possible UTI. Duration of symptoms 1 week. Associated symptoms dysuria frequency. Presents today for evaluation. No OTC medication use. Denies any fevers vomiting abdominal pain new nausea flank pain urological abnormalities vaginal discharge leaking of fluid or rashes. Past medical history prescription medications allergies reviewed. .Patient presents with: Urinary Frequency: burning with urination x 1 week, 15 weeks PAST MEDICAL HISTORY Diagnosis Date ADHD (attention deficit hyperactivity disorder) Generalized anxiety disorder NEGATIVE MEDICAL HISTORY normal color vision past medical history of age 2 years dermatoid - by her right eye PAST SURGICAL HISTORY Procedure Laterality Date NEXPLANON REMOVAL Left 10/07/2023 PAST SURGICAL HISTORY OF surgery on eye ALLERGIES Patient has no known allergies. MEDICATIONS promethazine (PHENERGAN) 25 mg tablet Take 1 tablet by mouth every 6 hours as needed. pantoprazole DR (PROTONIX) 20 mg tablet Take 1 tablet by mouth once daily. PNV/iron,carb/docusa t/folic ac (PRENA-CAP ORAL) Take 1 tablet by mouth once daily. ondansetron (ZOFRAN) 4 mg tablet Take 4 mg by mouth every 8 hours as needed for nausea/vomiting. FAMILY HISTORY Problem Relation Age of Onset Allergies Father Breast Cancer Maternal Grandmother Social History Tobacco Use Smoking status: Never Smokeless tobacco: Never Tobacco comments: no smoking in home Vaping Use Vaping status: Former Quit date: 03/08/2024 Substance Use Topics Alcohol use: Not Currently Comment: no alcohol use in home Drug use: Never BP 110/68 Pulse 88 Temp 36.9 ?C (98.5 ?F) Resp 16 Wt 66.4 kg (146 lb 6.2 oz) LMP 2024 (Approximate) SpO2 98% BMI 23.63 kg/m? Review of Systems Constitutional: Negative for chills, fever and malaise/fatigue. Cardiovascular: Negative for chest pain. Gastrointestinal: Negative for abdominal pain, constipation, diarrhea, nausea and vomiting. Genitourinary: Positive for dysuria and frequency. Negative for flank pain, hematuria and urgency. Musculoskeletal: Negative for myalgias. Objective Physical Exam Vitals and nursing note reviewed. Constitutional: General: She is not in acute distress. Appearance: She is not diaphoretic. HENT: Head: Jaw: No trismus. Right Ear: Hearing normal. No decreased hearing noted. No drainage, swelling or tenderness. Tympanic membrane is not perforated, erythematous or bulging. Left Ear: Hearing normal. No decreased hearing noted. No drainage, swelling or tenderness. Tympanic membrane is not perforated, erythematous or bulging. Mouth/Throat: Pharynx: Uvula midline. No uvula swelling. Tonsils: No tonsillar abscesses. Cardiovascular: Rate and Rhythm: Normal rate and regular rhythm. Pulses: Normal pulses. Pulmonary: Effort: Pulmonary effort is normal. No respiratory distress. Breath sounds: Normal breath sounds. Chest: Chest wall: No tenderness. Abdominal: General: Bowel sounds are normal. There is no distension. Palpations: Abdomen is soft. Abdomen is not rigid. Tenderness: There is no abdominal tenderness. There is no right CVA tenderness, left CVA tenderness, guarding or rebound. Negative signs include Johnson's sign and McBurney's sign. Musculoskeletal: General: No tenderness. Lymphadenopathy: Head: Right side of head: No submental, submandibular, tonsillar, preauricular, posterior auricular or occipital adenopathy. Left side of head: No submental, submandibular, tonsillar, preauricular, posterior auricular or occipital adenopathy. Cervical: Right cervical: No superficial or posterior cervical adenopathy. Left cervical: No superficial or posterior cervical adenopathy. Skin: General: Skin is warm and dry. Findings: No rash. Neurological: Mental Status: She is alert and oriented to person, place, and time. ASSESSMENT/PLAN: 1. Urinary frequency - ICD9: 788.41, ICD10: R35.0 (primary diagnosis) - UA DIP, URINE (POC) - URINE CULTURE 2. Burning with urination - ICD9: 788.1, ICD10: R30.0 - UA DIP, URINE (POC) - URINE CULTURE Urine dip negative. Will not treat at this point. Follow-up with [employer]POSAL [employer]ANT OPERATOR if symptoms persist. Treat accordingly urine culture results. Patient was educated on supportive therapies. Patient will follow up with primary care provider as needed. Patient was instructed to immediately (more content not included)... Normal [facility] UA DIP, URINE (POC)on 2023 BILIRUBIN UA (POCT) Negative Negative [facility] CLARITY UA (POCT) Clear [facility] COLOR UA (POCT) Yellow [facility] GLUCOSE UA (POCT) Negative Negative mg/dL [facility] Hemoglobin Ql (U) Negative Negative [facility] KETONE UA (POCT) Negative Negative mg/dL [facility] LEUKOCYTES UA (POCT) Negative Negative [facility] NITRITE UA (POCT) Negative Negative [facility] PH UA (POCT) 7.0 4.5 - 8.0 [facility] Protein Ql (U) Negative Negative mg/dL [facility] SPECIFIC GRAVITY UA (POCT) 1.015 1.005 - 1.030 [facility] UROBILINOGEN UA (POCT) 0.2 Normal E.U./d L [facility] Location:[address], [place], [place], [id number] [place] [address] POINT OF CARE [facility] 05-21-2024 LUISN Telephone (VICKIGYWM) ZAIN ROSE ([id number]) 5 F Date Time Provider Department 05/21/24 TOBY ROME During your visit today, we recorded the following information about you: Edilberto Bailey, BOZENA 05/21/2024 12:56 PM Signed 14w4d Received phone call from [facility] nurse regarding patient. She stated her depression screen with them is worse this visit than last. She has occasional thoughts of harming self, but no plan in place. I then called the patient and she again agreed with that information. She declined visit for today d/t work. She states she has good support system and isn't alone at any point. She does not have a counselor, but she does have the 24 hour crisis hotline number if she would need it. Advised to keep appointment tomorrow with for sure then and call us if she changes her mind or crisis hotline as needed. Patient agreed. BOZENA Ace Emily, APRN.HOG BUYER 05/21/2024 1:25 PM Signed Noted. She is welcome to move up her appointment. To call crisis line with any further thoughts of self harm Toby Rome APRN.LUIS Allergies As of Date: 05/21/2024 (No Known Allergies) Date Reviewed: 05/13/2024 Reviewed by: Toby Rome APRN.HOG BUYER - Fully Assessed Reason for Visit: Patient Update [1234] Prescriptions as of 05/21/2024 - promethazine (PHENERGAN) 25 mg tablet Take 1 tablet by mouth every 6 hours as needed. - pantoprazole DR (PROTONIX) 20 mg tablet Take 1 tablet by mouth once daily. - ondansetron (ZOFRAN) 4 mg tablet Take 1 tablet by mouth every 8 hours as needed for nausea/vomiting. - PNV/iron,carb/docusa t/folic ac (PRENA-CAP ORAL) Take 1 tablet by mouth once daily. Problem List As Of Date 05/21/2024 Noted Resolved ADHD (attention deficit hyperactivity disorder)*08/28/2011 with uncertain dates in first trimest*03/27/2024 Encounter for supervision of normal first pregn*03/27/2024 Family history of deafness [Z82.2] 03/27/2024 Hyperemesis gravidarum [O21.0] 03/27/2024 Heartburn during in second trimester *03/27/2024 Anxiety during [O99.340, F41.9] 03/27/2024 Encounter Status:Closed by EDILBERTO BAILEY on 05/21/24 Normal [facility] Satish 05-18-2024 ADAM Telephone (OBGYWM) ZAIN ROSE ([id number]) 5 F Date Time Provider Department 05/18/24 TOBY ROME OBGYWM During your visit today, we recorded the following information about you: Matt Lewis RN 05/18/2024 4:14 PM Signed Denisha a nurse with [employer] calling to notify the office that she met with the patient today to start her zofran pump and IV hydration. Nurse states they always do a depression screening as part of their evaluation and patient score moderate to severe. Nurse states her depression is more physical than mental because she feels so horrible. Denies any thought of harming self or others. BOZENA Valdez Emily, APRN.LUIS 05/18/2024 4:37 PM Signed Please offer patient sooner appointment to discuss mental health if she'd like. Can be virtual. Toby Rome APRN.Alison Neal RN 05/18/2024 4:50 PM Signed Spoke with patient. Appointment given. Alison Yu RN Allergies As of Date: 05/18/2024 (No Known Allergies) Date Reviewed: 05/13/2024 Reviewed by: Toby Rome APRN.LUIS - Fully Assessed Reason for Visit: Patient Update [1234] Prescriptions as of 05/18/2024 - promethazine (PHENERGAN) 25 mg tablet Take 1 tablet by mouth every 6 hours as needed. - pantoprazole DR (PROTONIX) 20 mg tablet Take 1 tablet by mouth once daily. - ondansetron (ZOFRAN) 4 mg tablet Take 1 tablet by mouth every 8 hours as needed for nausea/vomiting. - PNV/iron,carb/docusa t/folic ac (PRENA-CAP ORAL) Take 1 tablet by mouth once daily. Problem List As Of Date 05/18/2024 Noted Resolved ADHD (attention deficit hyperactivity disorder)*08/28/2011 with uncertain dates in first trimest*03/27/2024 Encounter for supervision of normal first pregn*03/27/2024 Family history of deafness [Z82.2] 03/27/2024 Hyperemesis gravidarum [O21.0] 03/27/2024 Heartburn during in second trimester *03/27/2024 Anxiety during [O99.340, F41.9] 03/27/2024 Encounter Status:Closed by ALISON YU on 05/18/24 Normal [facility] CBCon 05-17-2024 ABSOLUTE BAS 0.0 10*3/uL Normal 0.0-0.2 [facility] Comment on above: Performed By: #### A CBC, CHEM7F #### Testing performed at [address] [address] ABSOLUTE EOS 0.0 10*3/uL Normal 0.0-0.7 [facility] Comment on above: Performed By: #### A CBC, CHEM7F #### Testing performed at [address] [address] ABSOLUTE NEUTROPHIL COUNT 10.9 10*3/uL High 1.4-6.5 [facility] Comment on above: Performed By: #### A CBC, CHEM7F #### Testing performed at [address] [address] Basophils/100 WBC (Bld) 0.1 % Normal 0.0-2.0 [facility] Comment on above: Performed By: #### A CBC, CHEM7F #### Testing performed at [address] [address] DTYPE AUTO DIFF Normal [facility] Comment on above: Performed By: #### A CBC, CHEM7F #### Testing performed at [address] [address] Eosinophils/100 WBC (Bld) 0.2 % Normal 0.0-11.0 [facility] Comment on above: Performed By: #### A CBC, CHEM7F #### Testing performed at [address] [address] Lymphocytes (Bld) [#/Vol] 1.0 10*3/uL Low 1.2-3.4 [facility] Comment on above: Performed By: #### A CBC, CHEM7F #### Testing performed at [address] [address] Lymphocytes/100 WBC (Bld) 8.3 % Low 20.0-55.0 [facility] Comment on above: Performed By: #### A CBC, CHEM7F #### Testing performed at [address] [address] Monocytes (Bld) [#/Vol] 0.7 10*3/uL Normal 0.0-0.7 [facility] Comment on above: Performed By: #### A CBC, CHEM7F #### Testing performed at [address] [address] Monocytes/100 WBC (Bld) 5.1 % Normal 0.0-10.0 [facility] Comment on above: Performed By: #### A CBC, CHEM7F #### Testing performed at [address] [address] Neutrophils/100 WBC (Bld) 86.3 % High 37.0-75.0 [facility] Comment on above: Performed By: #### A CBC, CHEM7F #### Testing performed at [address] [address] Erythrocyte distribution width (RBC) [Ratio] 13.3 % Normal 11.5-14.5 [facility] Comment on above: Performed By: #### A CBC, CHEM7F #### Testing performed at [address] [address] Hematocrit (Bld) [Volume fraction] 39.7 % Normal 36.0-48.0 [facility] Comment on above: Performed By: #### A CBC, CHEM7F #### Testing performed at [address] [address] Hemoglobin (Bld) [Mass/Vol] 13.3 g/dL Normal 12.0-16.0 [facility] Comment on above: Performed By: #### A CBC, CHEM7F #### Testing performed at [address] [place] [address] MCH (RBC) [Entitic mass] 28.5 pg Normal 26.0-35.0 [facility] Comment on above: Performed By: #### A CBC, CHEM7F #### Testing performed at [address] [place] [address] MCHC (RBC) [Mass/Vol] 33.4 g/dL Normal 27.0-37.0 [facility] Comment on above: Performed By: #### A CBC, CHEM7F #### Testing performed at [address] [address] MCV (RBC) [Entitic vol] 85.3 fL Normal 80.0-100.0 [facility] Comment on above: Performed By: #### A CBC, CHEM7F #### Testing performed at [address] [address] Platelet mean volume (Bld) [Entitic vol] 9.3 fL Normal 7.4-11.0 [facility] Comment on above: Performed By: #### A CBC, CHEM7F #### Testing performed at [address] [address] Platelets (Bld) [#/Vol] 221 10*3/uL Normal 130-400 [facility] Comment on above: Performed By: #### A CBC, CHEM7F #### Testing performed at [address] [address] RBC (Bld) [#/Vol] 4.66 10*6/uL Normal 4.0-5.4 [facility] Comment on above: Performed By: #### A CBC, CHEM7F #### Testing performed at [address] [address] WBC (Bld) [#/Vol] 12.6 10*3/uL High 3.6-11.0 [facility] Comment on above: Performed By: #### A CBC, CHEM7F #### Testing performed at [address] [address] CBC, EDIF, PLATELETon 2023 ABSOLUTE BASOPHIL COUNT 0.0 10*3/uL 0.0 - 0.2 10*3/uL [facility] Basophils/100 WBC (Bld) 0.1 % 0.0 - 2.0 % [facility] Differential cell count method Nom (Bld) AUTO DIFF % [facility] Eosinophils (Bld) [#/Vol] 0.0 10*3/uL 0.0 - 0.7 10*3/uL [facility] Eosinophils/100 WBC (Bld) 0.2 % 0.0 - 11.0 % [facility] Erythrocyte distribution width (RBC) [Ratio] 13.3 % 11.5 - 14.5 % [facility] Hematocrit (Bld) [Volume fraction] 39.7 % 36.0 - 48.0 % [facility] Hemoglobin (Bld) [Mass/Vol] 13.3 g/dL [facility] Interpretation and review of laboratory results Abnormal [facility] Lymphocytes (Bld) [#/Vol] 1.0 10*3/uL Low 1.2 - 3.4 10*3/uL [facility] Lymphocytes/100 WBC (Bld) 8.3 % Low 20.0 - 55.0 % [facility] MCH (RBC) [Entitic mass] 28.5 pg 26.0 - 35.0 PG [facility] MCHC (RBC) [Mass/Vol] 33.4 g/dL [facility] MCV (RBC) [Entitic vol] 85.3 fL A [facility] Monocytes (Bld) [#/Vol] 0.7 10*3/uL 0.0 - 0.7 10*3/uL [facility] Monocytes/100 WBC (Bld) 5.1 % 0.0 - 10.0 % [facility] Neutrophils (Bld) [#/Vol] 10.9 10*3/uL High 1.4 - 6.5 10*3/uL [facility] Neutrophils/100 WBC (Bld) 86.3 % High 37.0 - 75.0 % [facility] Platelet mean volume (Bld) [Entitic vol] 9.3 fL [facility] Platelets (Bld) [#/Vol] 221 10*3/uL 130 - 400 10*3/uL [facility] RBC (Bld) [#/Vol] 4.66 10*6/uL 4.0 - 5.4 10*6/uL [facility] WBC (Bld) [#/Vol] 12.6 10*3/uL High 3.6 - 11.0 10*3/uL [facility] CHEM 7 FASTINGon 05-17-2024 Chloride [Moles/Vol] 108 mmol/L High 98-107 [facility] Comment on above: Result Comment: Tere garcia note: Triglyceride levels of 600mg/dL or higher may positively bias chloride results by approximately 2.1 mmol Performed By: #### A CBC, CHEM7F #### [place] [address] CO2 [Moles/Vol] 22 mmol/L Normal 22-30 [facility] Comment on above: Performed By: #### A CBC, CHEM7F #### [place] [address] Creatinine [Mass/Vol] 0.44 mg/dL Low 0.70-1.20 [facility] Comment on above: Performed By: #### A CBC, CHEM7F #### Testing performed at [address] [address] EST. GFR, 237 ml/min/1.73sq.m [facility] Comment on above: Performed By: #### A CBC, CHEM7F #### Testing performed at [address] [address] EST. GFR,Non 196 ml/min/1.73sq.m [facility] Comment on above: Performed By: #### A CBC, CHEM7F #### Testing performed at [address] [address] GFR Information Average GFR for 18-29 years old = 116. [facility] Comment on above: Result Comment: Cuff Matcher zheng Kidney disease, GFR = <60. Kidney failure, GFR = <15. The GFR estimate is not adjusted for extreme body surface area or acute process, nor has it been validated for women or ethnic groups other than and . Performed By: #### A CBC, CHEM7F #### [place] [address] Glucose [Mass/Vol] 91 mg/dL Normal 70-100 [facility] Comment on above: Result Comment: NORMAL <100 mg/dL PREDIABETES 101-126 mg/dL DIABETES 126 mg/dL or higher Performed By: #### A CBC, CHEM7F #### Testing performed at [address] [address] Potassium [Moles/Vol] 3.7 mmol/L Normal 3.5-5.1 [facility] Comment on above: Performed By: #### A CBC, CHEM7F #### Testing performed at [address] [address] Sodium [Moles/Vol] 136 mmol/L Low 137-145 [facility] Comment on above: Performed By: #### A CBC, CHEM7F #### Testing performed at [address] [address] Urea nitrogen [Mass/Vol] 2 mg/dL Low 7-20 [facility] Comment on above: Performed By: #### A CBC, CHEM7F #### Testing performed at [address] [address] CHEM 7 (LYTES,BUN,CREA,GLUC) on 05-17-2024 Chloride [Moles/Vol] 108 mmol/L High [facility] Comment on above: Please note: Triglyc eride levels of 600mg/dL or higher may positively bias chloride results by approximately 2.1 mmol CO2 [Moles/Vol] 22 mmol/L [facility] Creatinine [Mass/Vol] 0.44 mg/dL Low [facility] GFR COMMENT Average GFR for 18-29 years old = 116. [facility] Comment on above: Chronic Kidney disea se, GFR = <60. Kidney failure, GFR = <15. The GFR estimate is not adjusted for extreme body surface area or acute process, nor has it been validated for women or ethnic groups other than and . GFR/1.73 sq M.predicted among blacks MDRD (S/P/Bld) [Vol rate/Area] 237 mL/min/{1.73_m2} ml/min/1.73sq. m [facility] GFR/1.73 sq M.predicted among non-blacks MDRD (S/P/Bld) [Vol rate/Area] 196 mL/min/{1.73_m2} ml/min/1.73sq. m [facility] Glucose post fast [Mass/Vol] 91 mg/dL [facility] Comment on above: NORMAL <100 mg/dL PREDIABETES 101-126 mg/dL DIABETES 126 mg/dL or higher Interpretation and review of laboratory results Abnormal [facility] Potassium [Moles/Vol] 3.7 mmol/L [facility] Sodium [Moles/Vol] 136 mmol/L Low [facility] Urea nitrogen [Mass/Vol] 2 mg/dL Low [facility] URINALYSIS, MACROon 05-17-20 24 Bilirubin Ql (U) Negative NEGATIVE [facility] Clarity (U) CLEAR CLEAR [facility] Color (U) LIGHT YELLOW Abnormal YELLOW [facility] Glucose Test strip (U) [Mass/Vol] Negative NEGATIVE mg/dl [facility] Hemoglobin Ql (U) Negative NEGATIVE [facility] Interpretation and review of laboratory results Abnormal [facility] Ketones (U) [Mass/Vol] 80 mg/dL Abnormal NEGATIVE [facility] Leukocyte esterase Test strip Ql (U) Negative NEGATIVE [facility] Nitrite Ql (U) Negative NEGATIVE [facility] pH (U) 7.0 [pH] 5.0 - 7.0 [facility] Protein Ql (U) Negative NEGATIVE mg/dl [facility] Specific gravity (U) [Rel density] 1.015 1.010 - 1.025 [facility] Urobilinogen (U) [Mass/Vol] 0.2 mg/dL [facility] URINE MACROSCOPICon 05-17-20 24 Bilirubin Ql (U) Negative Normal NEGATIVE [facility] Comment on above: Performed By: #### U MAC #### [place] [address] Clarity (U) CLEAR Normal CLEAR [facility] Comment on above: Performed By: #### U MAC #### Testing performed at [address] [address] Color (U) LIGHT YELLOW Abnormal YELLOW [facility] Comment on above: Performed By: #### U MAC #### Testing performed at [address] [address] Glucose Ql (U) Negative Normal NEGATIVE [facility] Comment on above: Performed By: #### U MAC #### Testing performed at [address] [address] pH (U) 7.0 [pH] Normal 5.0-7.0 [facility] Comment on above: Performed By: #### U MAC #### Testing performed at [address] [address] URINE HEMOGLOBIN Negative Normal NEGATIVE [facility] Comment on above: Performed By: #### U MAC #### Testing performed at [address] [address] URINE KETONE 80 mg/dl Abnormal NEGATIVE [facility] Comment on above: Performed By: #### U MAC #### Testing performed at [address] [address] URINE LEUKOTEST Negative Normal NEGATIVE [facility] Comment on above: Performed By: #### U MAC #### Testing performed at [address] [address] URINE NITRATES Negative Normal NEGATIVE [facility] Comment on above: Performed By: #### U MAC #### Testing performed at [address] [address] URINE SPEC GRAVITY 1.015 Normal 1.010-1.025 [facility] Comment on above: Performed By: #### U MAC #### Testing performed at [address] [address] URINE TOTAL PROTEIN Negative Normal NEGATIVE [facility] Comment on above: Performed By: #### U MAC #### Testing performed at [address] [address] Urobilinogen Qn (U) 0.2 {Jazmine'U}/dL Normal 0.2-1.0 [facility] Comment on above: Performed By: #### U MAC #### Testing performed at [address] [address] Satish 05-13-2024 LUISN Telephone (OBGYWM) ZAIN ROSE ([id number]) 5 F Date Time Provider Department 05/13/24 TOBY ROME During your visit today, we recorded the following information about you: Toby Rome APRN.LUIS 05/13/2024 9:44 AM Signed Zofran pump ordered, form placed at nurse station. Toby Rome APRN.Edilberto Lux RN 05/13/2024 10:02 AM Signed Order faxed to [facility]. Edilberto Bailey RN Allergies As of Date: 05/13/2024 (No Known Allergies) Date Reviewed: 05/13/2024 Reviewed by: Toby Rome APRN.CNP - Fully Assessed Reason for Visit: Orders [681] Prescriptions as of 05/13/2024 - promethazine (PHENERGAN) 25 mg tablet Take 1 tablet by mouth every 6 hours as needed. - pantoprazole DR (PROTONIX) 20 mg tablet Take 1 tablet by mouth once daily. - ondansetron (ZOFRAN) 4 mg tablet Take 1 tablet by mouth every 8 hours as needed for nausea/vomiting. - PNV/iron,carb/docusa t/folic ac (PRENA-CAP ORAL) Take 1 tablet by mouth once daily. Problem List As Of Date 05/13/2024 Noted Resolved ADHD (attention deficit hyperactivity disorder)*08/28/2011 with uncertain dates in first trimest*03/27/2024 Encounter for supervision of normal first pregn*03/27/2024 Family history of deafness [Z82.2] 03/27/2024 Hyperemesis gravidarum [O21.0] 03/27/2024 Heartburn during in second trimester *03/27/2024 Anxiety during [O99.340, F41.9] 03/27/2024 Encounter Status:Closed by EDILBERTO BAILEY on 05/13/24 Normal [facility] nuchal translucency me asured by on 05-13-2024 Indication First trimester anatomic survey Impression REMOTE READ The patient is referred for a first trimester anatomy scan including nuchal translucency measurement as clinically indicated. - Single, live, intrauterine . - [place] rump length measurement is consistent with the established gestational age. - No malformations visualized on a complete first trimester anatomic assessment. - The nuchal translucency measurement is 1.3 mm. - Not all structural malformations can be detected by ultrasound examination. Maternal Structures: Right Ovary: Size 30 mm x 18 mm x 18 mm Left Ovary: Size 22 mm x 18 mm x 14 mm Recommendations Return for anatomy ultrasound Maternal Assessment Height 168 cm Height (ft) 5 ft Height (in) 6 in Physical Exam Initial weight (lb) 158 lb Initial BMI 25.50 kg/m Maternal assessment other: 1 Para 0 Method Transabdominal ultrasound examination Menezes . Number of fetuses: 1 Dating LMP on: 2024 GA by LMP 13 w + 3 d BOGDAN by LMP: 11/15/2024 GA by prior assessment 13 w + 3 d BOGDAN by prior assessment: 11/15/2024 Ultrasound examination on: 05/13/2024 GA by U/S based upon: CRL GA by U/S 13 w + 0 d BOGDAN by U/S: 11/18/2024 Assigned: based on stated BOGDAN, selected on 05/13/2024 Assigned GA 13 w + 3 d Assigned BOGDAN: 11/15/2024 General Evaluation Cardiac activity present Placenta: anterior Cord vessels: 3 vessel cord Amniotic fluid: normal amount Biometry Standard FHR 151 bpm CRL 67.7 mm 13w 0d 23% Hadlock NT 1.30 mm First Trimester Anatomy Calvarium: normal Falx cerebri: normal Choroid plexus: normal Profile: normal Nasal bone: normal Retronasal triangle: normal Maxilla: normal Mandible: normal Nuchal translucency: Unremarkable Situs: normal Cardiac position: normal Cardiac axis: normal 4-chamber view: suboptimal 4-chamber view with color: suboptimal [id number] view: suboptimal Abdominal cord insertion: normal Stomach: normal Kidneys: normal Bladder: normal Color doppler of perivesical umbilical arteries: normal Vertebral alignment: normal Arms: normal Hands: normal Legs: normal Feet: normal Maternal Structures Uterus / Cervix Uterus: Visualized Uterus length 111 mm Uterus width 97 mm Uterus height 89 mm Uterus Vol 503.7 cm Ovaries / Tubes / Adnexa Rt ovary: Visualized Rt ovary D1 30 mm Rt ovary D2 18 mm Rt ovary D3 18 mm Rt ovary Vol 5.2 cm Lt ovary: Visualized Lt ovary D1 22 mm Lt ovary D2 18 mm Lt ovary D3 14 mm Lt ovary Vol 2.9 cm Performed By: Matt Lugo, TAMMI, RVT Read By: Mia Valdivia M.D. MATERNAL MEDICINE [facility] Radiology Study observation (narrative) [facility] SEQUENTIAL SCN FIRST TRIMEST Javan 05-13-[birth year]24 [age] delivery 19.8 yr Normal [facility] Comment on above: Order Comment: Speci men Type: BLOOD SPECIMENOrdering Facility: [facility] Address: [address] [place] [address] Performed By: #### S EQ1 ####[facility] [id number] [place] [address] [place] R[place] length US 67.7 mm Normal [facility] Comment on above: Order Comment: Speci men Type: BLOOD SPECIMENOrdering Facility: [facility] Address: [address] [place] [address] Performed By: #### S EQ1 ####[facility] LABCLIA [id number] [place] [address] Nuchal fold [Multiple of the median] Thickness US 0.86 Normal [facility] Comment on above: Order Comment: Speci men Type: BLOOD SPECIMENOrdering Facility: [facility] Address: [address] [place] [address] Performed By: #### S EQ1 ####[facility] LABCLIA [id number] [place] [address] Nuchal fold Thickness US 1.3 mm Normal [facility] Comment on above: Order Comment: Speci men Type: BLOOD SPECIMENOrdering Facility: [facility] Address: [address] [place] [address] Performed By: #### S EQ1 ####[facility] LABCLIA [id number] [place] [address] First and Second trimester integrated maternal screen [Interp] Comment Normal [facility] Comment on above: Order Comment: Speci men Type: BLOOD SPECIMENOrdering Facility: [facility] Address: [address] [place] [address] Result Comment: The risk for Down syndrome is less than the 1:45 cutoff. Comment The risk for trisomy 18 is less than the 1:100 cutoff. Performed By: #### S EQ1 ####[facility] LABCLIA [id number] [place] [address] Gestational age 12.9 weeks Normal [facility] Comment on above: Order Comment: Deannai odilia Type: BLOOD SPECIMENOrdering Facility: [facility] Address: [address] [place] [address] Performed By: #### S EQ1 ####[facility] LABCLIA [id number] [place] [address] HCG adjusted [MoM] 0.89 Normal [facility] Comment on above: Order Comment: Speci men Type: BLOOD SPECIMENOrdering Facility: [facility] Address: [address] [place] [address] Performed By: #### S EQ1 ####[facility] LABCLIA [id number] [place] [address] HCG Qn 79.5 IU/mL Normal [facility] Comment on above: Order Comment: Deannai men Type: BLOOD SPECIMENOrdering Facility: [facility] Address: [address] [place] [address] Performed By: #### S EQ1 ####[facility] LABCLIA [id number] [place] [address] Laboratory comment Idris (Report) Comment Normal [facility] Comment on above: Order Comment: Deannai men Type: BLOOD SPECIMENOrdering Facility: [facility] Address: [address] [place] [address] Result Comment: Tere garcia submit a second trimester sample between 15.0 - 21.9 weeks gestation to complete risk assessment for Down syndrome, trisomy 18 and open spina bifida. The [place] [employer] recommends that all women be counseled regarding the differences between screening and invasive diagnostic testing. Performed By: #### S EQ1 ####[facility] LABCLIA [id number] [place] [address] Mother's race Normal [facility] Comment on above: Order Comment: Speci men Type: BLOOD SPECIMENOrdering Facility: [facility] Address: [address] [place] [address] Performed By: #### S EQ1 ####[facility] LABCLIA [id number] [place] [address] NOTE: Comment Normal [facility] Comment on above: Order Comment: Speci men Type: BLOOD SPECIMENOrdering Facility: [facility] Address: [address] [place] [address] Result Comment: Tere garcia verify all clinical data used in this risk assessment and call [phone] with any corrections. Esperanza Kennedy, Ph.D., [facility] Director References: Available upon request Open Spina Bifida (OSB) MoM Cutoffs Menezes 2.5 Black 2.8 IDD 2.0 Twins 4.5 Risk Cutoffs Down Syndrome (DS) cutoff 1:270 Trisomy 18 (T18) cutoff 1:100 For further inquiries contact [employer] Customer Service at [phone]. This test was developed and its performance characteristics determined by [employer]. It has not been cleared or approved by the Food and Drug Administration. Performed By: #### S EQ1 ####[facility] LABCLIA [id number] [place] [address] Number of fetuses by US 1 Normal C [facility] Comment on above: Order Comment: Speci men Type: BLOOD SPECIMENOrdering Facility: [facility] Address: [address] [place] [address] Performed By: #### S EQ1 ####[facility] LABCLIA [id number] [place] [address] associated plasma protein A [Mass/Vol] 1027.4 ng/mL Normal [facility] Comment on above: Order Comment: Speci men Type: BLOOD SPECIMENOrdering Facility: [facility] Address: [address] [place] [address] Performed By: #### S EQ1 ####[facility] LABCLIA [id number] [place] [address] associated plasma protein A adjusted [MoM] 0.88 Normal [facility] Comment on above: Order Comment: Speci men Type: BLOOD SPECIMENOrdering Facility: [facility] Address: [address] [place] [address] Performed By: #### S EQ1 ####[facility] LABCLIA [id number] [place] [address] RESULTS Report Normal [facility] Comment on above: Order Comment: Speci men Type: BLOOD SPECIMENOrdering Facility: [facility] Address: [address] [place] [address] Performed By: #### S EQ1 ####[facility] LABCLIA [id number] [place] [address] Activity Therapist [Identifier] [id number] Normal [facility] Comment on above: Order Comment: Speci men Type: BLOOD SPECIMENOrdering Facility: [facility] Address: [address] [place] [address] Performed By: #### S EQ1 ####[facility] LABCLIA [id number] [place] [address] SUBMIT PART 2 SAMPLE USING Date: Normal [facility] Comment on above: Order Comment: Speci men Type: BLOOD SPECIMENOrdering Facility: [facility] Address: [address] [place] [address] Result Comment: Sequ ential 2 Test Code [id number] Based on gest age provided, draw sample after: 05/28/2024 Performed By: #### S EQ1 ####[facility] LABCLIA [id number] [place] [address] Trisomy 18 risk Based on maternal age Qn (fetus) Age Risk: Normal [facility] Comment on above: Order Comment: Speci men Type: BLOOD SPECIMENOrdering Facility: [facility] Address: [address] [place] [address] Result Comment: [id number] Performed By: #### S EQ1 ####[facility] LABCLIA [id number] [place] [address] Trisomy 18 risk Qn (fetus) Screening Risk: Normal [facility] Comment on above: Order Comment: Speci men Type: BLOOD SPECIMENOrdering Facility: [facility] Address: [address] [place] [address] Result Comment: <1 [place] [id number] Performed By: #### S EQ1 ####[facility] LABCLIA [id number] [place] [address] Trisomy 21 risk Based on maternal age Qn (fetus) Age Risk: Normal [facility] Comment on above: Order Comment: Speci men Type: BLOOD SPECIMENOrdering Facility: [facility] Address: [address] [place] [address] Result Comment: in 1143 Performed By: #### S EQ1 ####[facility] LABCLIA [id number] [place] [address] Trisomy 21 risk Qn (fetus) Screening Risk: Normal [facility] Comment on above: Order Comment: Speci men Type: BLOOD SPECIMENOrdering Facility: [facility] Address: [address] [place] [address] Result Comment: <1 [place] [id number] Performed By: #### S EQ1 ####[facility] LABCLIA [id number] [place] [address] Ultrasound date Date: Normal [facility] Comment on above: Order Comment: Speci men Type: BLOOD SPECIMENOrdering Facility: [facility] Address: [address] [place] [address] Result Comment: 04/20 Performed By: #### S EQ1 ####[facility] LABCLIA [id number] [place] [address] TYPE + SCREEN PRENATALon ABO O Normal [facility] Comment on above: Order Comment: Speci men Type: BLOOD SPECIMENOrdering Facility: [facility] Address: [address] [place] [address] Performed By: #### T SPN ####[facility] BLO[facility] BANKCLIA [id number] [address] [place] HISTORICAL AB SCR STATUS Negative Normal [facility] Comment on above: Order Comment: Speci men Type: BLOOD SPECIMENOrdering Facility: [facility] Address: [address] [place] [address] Performed By: #### T SPN ####[facility] BLOOD BANKCLIA [id number] [place] [address] [place] Rh Nom (Bld) Positive Normal [facility] Comment on above: Order Comment: Speci men Type: BLOOD SPECIMENOrdering Facility: [facility] Address: [address] [place] [address] Performed By: #### T SPN ####[facility] BLOOD BANKCLIA [id number] [place] [address] [place] TYPE AND SCREEN EXPIRATION 05/16/2024 23:59 Normal [facility] Comment on above: Order Comment: Speci men Type: BLOOD SPECIMENOrdering Facility: [facility] Address: [address] [place] [address] Performed By: #### T SPN ####[facility] BLOOD BANKCLIA [id number] [place] [address] [place] CBC panel Auto (Bld)on 05-08 Erythrocyte distribution width (RBC) [Ratio] 12.8 % 11.5 - 15.0 % [facility] Hematocrit (Bld) [Volume fraction] 41.2 % 36.0 - 46.0 % [facility] Hemoglobin (Bld) [Mass/Vol] 14.0 g/dL 11.5 - 15.5 g/dL [facility] Interpretation and review of laboratory results Normal [facility] MCH (RBC) [Entitic mass] 28.6 pg 26.0 - 34.0 pg [facility] MCHC (RBC) [Mass/Vol] 34.0 g/dL 30.5 - 36.0 g/dL [facility] MCV (RBC) [Entitic vol] 84.3 fL 80.0 - 100.0 fL [facility] Nucleated RBC (Bld) [#/Vol] NINF [facility] Platelet mean volume (Bld) [Entitic vol] 11.0 fL 9.0 - 12.7 fL [facility] Platelets (Bld) [#/Vol] 240 10*3/uL [facility] RBC (Bld) [#/Vol] 4.89 10*6/uL 3.90 - 5.2 0 m/uL [facility] WBC (Bld) [#/Vol] 10.81 10*3/uL [facility] Erythrocyte distribution width (RBC) [Ratio] 12.8 % Normal 11.5-15.0 [facility] Comment on above: Order Comment: Speci men Type: BLOOD SPECIMENOrdering Facility: [facility] Address: [address] [place] [address] Performed By: #### 5 8410-2 ####[facility] [id number] [address] STATES OF [facility] Hematocrit (Bld) [Volume fraction] 41.2 % Normal 36.0-46.0 [facility] Comment on above: Order Comment: Speci men Type: BLOOD SPECIMENOrdering Facility: [facility] Address: [address] [place] [address] Performed By: #### 5 8410-2 ####[facility] [id number] [place] [address] [place] Hemoglobin (Bld) [Mass/Vol] 14.0 g/dL Normal 11.5-15.5 [facility] Comment on above: Order Comment: Speci men Type: BLOOD SPECIMENOrdering Facility: [facility] Address: [address] [place], [place] [address] Performed By: #### 5 8410-2 ####[facility]ITALNCLIA [id number] [place] [address] [place] MCH (RBC) [Entitic mass] 28.6 pg Normal 26.0-34.0 [facility] Comment on above: Order Comment: Speci men Type: BLOOD SPECIMENOrdering Facility: [facility] Address: [address] [place] [address] Performed By: #### 5 8410-2 ####[facility] [id number] [place] [address] [place] MCHC (RBC) [Mass/Vol] 34.0 g/dL Normal 30.5-36.0 [facility] Comment on above: Order Comment: Speci men Type: BLOOD SPECIMENOrdering Facility: [facility] Address: [address] [place] [address] Performed By: #### 5 8410-2 ####[facility] [id number] [place] [address] [place] MCV (RBC) [Entitic vol] 84.3 fL Normal 80.0-100.0 C [facility] Comment on above: Order Comment: Speci men Type: BLOOD SPECIMENOrdering Facility: [facility] Address: [address] [place] [address] Performed By: #### 5 8410-2 ####[facility] [id number] [address] [place] Nucleated RBC (Bld) [#/Vol] 10*3/uL Normal <0.01 [facility] Comment on above: Order Comment: Speci men Type: BLOOD SPECIMENOrdering Facility: [facility] Address: [address] [place] [address] Performed By: #### 5 8410-2 ####[facility]ITALNCINTERM[facility] [id number] [place] [address] [place] Platelet mean volume (Bld) [Entitic vol] 11.0 fL Normal 9.0-12.7 [facility] Comment on above: Order Comment: Speci men Type: BLOOD SPECIMENOrdering Facility: [facility] Address: [address] [place] [address] Performed By: #### 5 8410-2 ####[facility] ROSMERYNallelyINNALIA [id number] [place] [address] [place] Platelets (Bld) [#/Vol] 240 10*3/uL Normal 150-400 [facility] Comment on above: Order Comment: Speci men Type: BLOOD SPECIMENOrdering Facility: [facility] Address: [address] [place] [address] Performed By: #### 5 8410-2 ####[facility] HOSPITALNCFLORAA [id number] [place] [address] [place] RBC (Bld) [#/Vol] 4.89 10*6/uL Normal 3.90-5.20 [facility] Comment on above: Order Comment: Speci men Type: BLOOD SPECIMENOrdering Facility: [facility] Address: [address] [place] [address] Performed By: #### 5 8410-2 ####[facility]ITALNCLIA [id number] [place] [address] [place] WBC (Bld) [#/Vol] 10.81 10*3/uL Normal 3.70-11.00 [facility] Comment on above: Order Comment: Speci men Type: BLOOD SPECIMENOrdering Facility: [facility] Address: [address] [place] [address] Performed By: #### 5 8410-2 ####[facility] H[facility]ITALNCLIA [id number] [place] [address] [place] Comprehensive metabolic 2000 panelOrdered By: Ronit Casillas on 05-08-2024 Albumin [Mass/Vol] 4.3 g/dL 3.9 - 4.9 g/dL [facility] ALP [Catalytic activity/Vol] 100 U/L 34 - 123 U/L [facility] ALT [Catalytic activity/Vol] 11 U/L 7 - 38 U/L [facility] Anion gap [Moles/Vol] 12 mmol/L 8 - 15 mmol/L [facility] AST [Catalytic activity/Vol] 15 U/L 13 - 35 U/L [facility] Bilirubin [Mass/Vol] 0.5 mg/dL 0.2 - 1 .3 mg/dL [facility] Calcium [Mass/Vol] 9.6 mg/dL 8.5 - 10. 2 mg/dL [facility] Chloride [Moles/Vol] 103 mmol/L 98 - 10 7 mmol/L [facility] CO2 [Moles/Vol] 22 mmol/L 22 - 30 mmol/L [facility] Creatinine [Mass/Vol] 0.48 mg/dL Low 0.58 - 0.96 mg/dL [facility] GFR/1.73 sq M.predicted among non-blacks MDRD (S/P/Bld) [Vol rate/Area] 140 mL/min/{1.73_m2} - PINF [facility] Comment on above: Estimated Glomerular Filtration Rate (eGFR) is calculated using the 2020 CKD-EPI creatinine equation. This equation utilizes serum creatinine, sex, and age as parameters. The creatinine assay has traceable calibration to isotope dilution-mass spectrometry. Refer to KDIGO guidelines for clinical interpretation. In patients with unstable renal function, e.g. those with acute kidney injury, the eGFR may not accurately reflect actual GFR. Glucose [Mass/Vol] 98 mg/dL 74 - 99 mg/dL [facility] Comment on above: The [place] Diabete s Association (ADA) provides guidance for cutoff values for fasting glucose and random glucose. The ADA defines fasting as no caloric intake for at least 8 hours. Fasting plasma glucose results between 100 to 125 mg/dL indicate increased risk for diabetes (prediabetes). Fasting plasma glucose results greater than or equal to 126 mg/dL meet the criteria for diagnosis of diabetes. In the absence of unequivocal hyperglycemia, results should be confirmed by repeat testing. In a patient with classic symptoms of hyperglycemia or hyperglycemic crisis, random plasma glucose results greater than or equal to 200 mg/dL meet the criteria for diagnosis of diabetes. Reference: Standards of Medical Care in Diabetes 2016, [place] [employer]. Diabetes Care. 2016.39(Suppl 1). Interpretation and review of laboratory results Abnormal [facility] Potassium [Moles/Vol] 3.9 mmol/L 3.7 - 5.1 mmol/L [facility] Protein [Mass/Vol] 6.9 g/dL 6.3 - 8.0 g/dL Cl [facility] Sodium [Moles/Vol] 137 mmol/L 136 - 144 mmol/L [facility] Urea nitrogen [Mass/Vol] 4 mg/dL Low 7 - 21 mg/d L [facility] Comprehensive metabolic 2000 panelon 05-08-2024 Albumin [Mass/Vol] 4.3 g/dL Normal 3.9-4.9 [facility] Comment on above: Order Comment: Ana hartley Type: BLOOD SPECIMENOrdering Facility: [facility] Address: [address] [place] [address] Performed By: #### 2 4323-8 ####[facility] [id number] [place] [address] [place] ALP [Catalytic activity/Vol] 100 U/L Normal 34-123 [facility] Comment on above: Order Comment: Deannai odilia Type: BLOOD SPECIMENOrdering Facility: [facility] Address: [address] [place] [address] Performed By: #### 2 4323-8 ####[facility] CENTERLIA [id number] [place] [address] [place] ALT [Catalytic activity/Vol] 11 U/L Normal 7-38 [facility] Comment on above: Order Comment: Deannai men Type: BLOOD SPECIMENOrdering Facility: [facility] Address: [address] [place] [address] Performed By: #### 2 4323-8 ####[facility] CENTERLIA [id number] [place] [address] [place] Anion gap [Moles/Vol] 12 mmol/L Normal 8-15 [facility] Comment on above: Order Comment: Speci men Type: BLOOD SPECIMENOrdering Facility: [facility] Address: [address] [place] [address] Performed By: #### 2 4323-8 ####[facility] HOSPITALNCLI [id number] [place] [address] [place] AST [Catalytic activity/Vol] 15 U/L Normal 13-35 [facility] Comment on above: Order Comment: Speci men Type: BLOOD SPECIMENOrdering Facility: [facility] Address: [address] [place] [address] Performed By: #### 2 4323-8 ####[facility] [id number] [place] [address] [place] Bilirubin [Mass/Vol] 0.5 mg/dL Normal 0.2-1.3 [facility] Comment on above: Order Comment: Speci men Type: BLOOD SPECIMENOrdering Facility: [facility] Address: [address] [place] [address] Performed By: #### 2 4323-8 ####[facility] [id number] [place] [address] [place] Calcium [Mass/Vol] 9.6 mg/dL Normal 8.5-10.2 [facility] Comment on above: Order Comment: Speci men Type: BLOOD SPECIMENOrdering Facility: [facility] Address: [address] [place] [address] Performed By: #### 2 4323-8 ####[facility] [id number] [place] [address] [place] Chloride [Moles/Vol] 103 mmol/L Normal 98-107 [facility] Comment on above: Order Comment: Speci men Type: BLOOD SPECIMENOrdering Facility: [facility] Address: [address] [id number] Performed By: #### 2 4323-8 ####[facility] MARTANCELVIRA [id number] [place] [address] [place] [facility] CO2 [Moles/Vol] 22 mmol/L Normal 22-30 [facility] Comment on above: Order Comment: Speci men Type: BLOOD SPECIMENOrdering Facility: [facility] Address: [address] [place] [address] Performed By: #### 2 4323-8 ####[facility]ITALNCINTERMOUNTAIN [facility] [id number] [address] [place] Creatinine [Mass/Vol] 0.48 mg/dL Low 0.58-0.96 [facility] Comment on above: Order Comment: Speci men Type: BLOOD SPECIMENOrdering Facility: [facility] Address: [address] [place] [address] Performed By: #### 2 4323-8 ####[facility] HOSPITALNCLIA [id number] [address] Creatinine and Glomerular filtration rate.predicted panel (S/P/Bld) 140 mL/min/1.73m??? Normal >=60 [facility] Comment on above: Order Comment: Speci men Type: BLOOD SPECIMENOrdering Facility: [facility] Address: [address] [place] [address] Result Comment: Cristy mated Glomerular Filtration Rate (eGFR) is calculated using the 2020 CKD-EPI creatinine equation. This equation utilizes serum creatinine, sex, and age as parameters. The creatinine assay has traceable calibration to isotope dilution-mass spectrometry. Refer to KDIGO guidelines for clinical interpretation. In patients with unstable renal function, e.g. those with acute kidney injury, the eGFR may not accurately reflect actual GFR. Performed By: #### 2 4323-8 ####[facility] CAMPUSWNCLIA [id number] [place] [address] [place] Glucose [Mass/Vol] 98 mg/dL Normal 74-99 [facility] Comment on above: Order Comment: Speci men Type: BLOOD SPECIMENOrdering Facility: [facility] Address: [address] [place], [place] [id number] Result Comment: The [place] Diabetes Association (ADA) provides guidance for cutoff values for fasting glucose and random glucose. The ADA defines fasting as no caloric intake for at least 8 hours. Fasting plasma glucose results between 100 to 125 mg/dL indicate increased risk for diabetes (prediabetes). Fasting plasma glucose results greater than or equal to 126 mg/dL meet the criteria for diagnosis of diabetes. In the absence of unequivocal hyperglycemia, results should be confirmed by repeat testing. In a patient with classic symptoms of hyperglycemia or hyperglycemic crisis, random plasma glucose results greater than or equal to 200 mg/dL meet the criteria for diagnosis of diabetes. Reference: Standards of Medical Care in Diabetes 2016, [place] [employer]. Diabetes Care. 2016.39(Suppl 1). Performed By: #### 2 4323-8 ####[facility] CAMPUSWINNALIA [id number] [place] [address] [place] Potassium [Moles/Vol] 3.9 mmol/L Normal 3.7-5.1 [facility] Comment on above: Order Comment: Deannai men Type: BLOOD SPECIMENOrdering Facility: [facility] Address: [address] [place] [address] Performed By: #### 2 4323-8 ####[facility] MILLWNCLIA [id number] [place] [address] [place] Protein [Mass/Vol] 6.9 g/dL Normal 6.3-8.0 [facility] Comment on above: Order Comment: Speci men Type: BLOOD SPECIMENOrdering Facility: [facility] Address: [address] [place], [place] [address] Performed By: #### 2 4323-8 ####[facility] MILLWNCLIA [id number] [place] [address] [place] Sodium [Moles/Vol] 137 mmol/L Normal 136-144 [facility] Comment on above: Order Comment: Speci men Type: BLOOD SPECIMENOrdering Facility: [facility] Address: [facility] [place] [address] Performed By: #### 2 4323-8 ####[facility] CAMPUSWMNLIA [id number] [place] [address] [place] Urea nitrogen [Mass/Vol] 4 mg/dL Low 7-21 [facility] Comment on above: Order Comment: Speci men Type: BLOOD SPECIMENOrdering Facility: [facility] Address: [facility] [place] [address] Performed By: #### 2 4323-8 ####[facility]ENTER[facility] [id number] [place] [address] [place] CBC W/Diff, Automatedon 04-19 Absolute Lymph 0.95 X10 3/uL Normal 0.83-4.51 [facility] Comment on above: Performed By: #### L 400.0001 #### [facility] [address] [facility] [place], [address] Absolute Neut 11.3 X10 3/uL High 2.0-7.7 [facility] Comment on above: Performed By: #### L 400.0001 #### [facility] [address] [place], [address] Basophils/100 WBC (Bld) 0.2 % Normal 0-1 [facility] Comment on above: Performed By: #### L 400.0001 #### [facility] [address] [place], [address] Eosinophils/100 WBC (Bld) 0.2 % Normal 0-5 [facility] Comment on above: Performed By: #### L 400.0001 #### [facility] [address] [place], [address] Erythrocyte distribution width (RBC) [Ratio] 12.7 % Normal 11.6-14.6 [facility] Comment on above: Performed By: #### L 400.0001 #### [facility] [address] [place], [address] Hematocrit (Bld) [Volume fraction] 42.8 % Normal 37-47 [facility] Comment on above: Performed By: #### L 400.0001 #### [facility] [address] [place], [address] Hemoglobin (Bld) [Mass/Vol] 14.1 g/dL Normal 12.0-15.0 [facility] Comment on above: Performed By: #### L 400.0001 #### [facility] [address] [place], [address] IG% 0.700 Normal 0.0-0.9 [facility] Comment on above: Result Comment: IG% - Immature Granulocytes (promyelocytes, myelocytes and metamyelocytes) > 1% indicates that a LEFT SHIFT is Present. Performed By: #### L 400.0001 #### [facility] [address] [facility] [place], [address] Lymphocytes/100 WBC (Bld) 7.4 % Low 19-41 [facility] Comment on above: Performed By: #### L 400.0001 #### [facility] [address] [place], [address] MCH (RBC) [Entitic mass] 28.1 pg Normal 27.0-32.0 [facility] Comment on above: Performed By: #### L 400.0001 #### [facility] [address] [place], [address] MCHC (RBC) [Mass/Vol] 32.9 g/dL Normal 32-36 [facility] Comment on above: Performed By: #### L 400.0001 #### [facility] [address] [place], [address] MCV (RBC) [Entitic vol] 85.4 fL Normal 81-99 [facility] Comment on above: Performed By: #### L 400.0001 #### [facility] [address] [place], [address] Monocytes/100 WBC (Bld) 4.3 % Normal 0-10 [facility] Comment on above: Performed By: #### L 400.0001 #### [facility] [address] [place], [address] Neutrophils/100 WBC (Bld) 87.2 % High 47-70 [facility] Comment on above: Performed By: #### L 400.0001 #### [facility] [place], [address] Nucleated RBC (Bld) [#/Vol] 0 10*3/uL Normal 0-5 [facility] Comment on above: Performed By: #### L 400.0001 #### [facility] [address] [place], [address] Platelet mean volume (Bld) [Entitic vol] 11.4 fL Normal 6.2-12.0 [facility] Comment on above: Performed By: #### L 400.0001 #### [facility] [address] [place], [address] Platelets (Bld) [#/Vol] 230 10*3/uL Normal 150-450 [facility] Comment on above: Performed By: #### L 400.0001 #### [facility] [address] [place], [address] RBC (Bld) [#/Vol] 5.01 10*6/uL Normal 4.2-5.4 [facility] Comment on above: Performed By: #### L 400.0001 #### [facility] [address] [place], [address] RDW SD 39.1 fl Normal 35.1-43.9 [facility] Comment on above: Performed By: #### L 400.0001 #### [facility] [address] [place], [address] WBC (Bld) [#/Vol] 12.9 10*3/uL High 4.4-11.0 [facility] Comment on above: Performed By: #### L 400.0001 #### [facility] [address] [place], [address] Comprehensive Metabolic Prof ilon 05-06-2024 Albumin [Mass/Vol] 3.8 g/dL Normal 3.2-5.0 [facility] Comment on above: Performed By: #### L 400.0001 #### [facility] [address] [place], [address] Albumin/Globulin [Mass ratio] 1.1 {ratio} Normal 0.9-2.4 [facility] Comment on above: Performed By: #### L 400.0001 #### [facility] [address] [place], [address] ALK P 106 U/L Normal 45-117 [facility] Comment on above: Performed By: #### L 400.0001 #### [facility] [address] [place], [address] ALT [Catalytic activity/Vol] 16 U/L Normal 13-56 [facility] Comment on above: Performed By: #### L 400.0001 #### [facility] [address] [place], [address] AST [Catalytic activity/Vol] 9 U/L Low 15-37 [facility] Comment on above: Performed By: #### L 400.0001 #### [facility] [address] [place], [address] Bilirubin [Mass/Vol] 0.60 mg/dL Normal 0.20-1.00 [facility] Comment on above: Result Comment: For patients on eltrombopag therapy, use of Dimension [place] TBIL is not recommended. Performed By: #### L 400.0001 #### [facility] [address] [place], [address] BUN/CRE 7.8 RATIO Low 10-20 [facility] Comment on above: Performed By: #### L 400.0001 #### [facility] [address] [place], [address] CA,Total 9.5 mg/dL Normal 8.5-10.1 [facility] Comment on above: Performed By: #### L 400.0001 #### [facility] [address] [place], [address] Chloride [Moles/Vol] 105 mmol/L Normal 98-107 [facility] Comment on above: Performed By: #### L 400.0001 #### [facility] [address] [place], [address] CO2 [Moles/Vol] 24.0 mmol/L Normal 21.0-32.0 [facility] Comment on above: Performed By: #### L 400.0001 #### [facility] [address] [place], [address] Creatinine [Mass/Vol] 0.51 mg/dL Low 0.55-1.02 [facility] Comment on above: Result Comment: The validity of the calculated GFR GFRAA in patients over 70 years has not been determined. Clinical correlation is essential. Performed By: #### L 400.0001 #### [facility] [address] [place], [address] ECRCL 166.09 ml/min Normal [facility] Comment on above: Performed By: #### L 400.0001 #### [facility] [address] [place], [address] EST GFR - AA 198 mL/min Normal >60 [facility] Comment on above: Result Comment: Afri can Bahamian GFR Calc Performed By: #### L 400.0001 #### [facility] [address] [place], [address] GAP 10 Normal 5-15 [facility] Comment on above: Performed By: #### L 400.0001 #### [facility] [address] [place], [address] GFR/1.73 sq M.predicted among non-blacks MDRD (S/P/Bld) [Vol rate/Area] 164 mL/min/{1.73_m2} Normal >60 [facility] Comment on above: Result Comment: Non- GFR Calc Performed By: #### L 400.0001 #### [facility] [address] [place], [address] Globulin (S) [Mass/Vol] 3.6 g/dL Normal 2.2-4.2 [facility] Comment on above: Performed By: #### L 400.0001 #### [facility] [address] [place], [address] Glucose [Mass/Vol] 93 mg/dL Normal 74-106 [facility] Comment on above: Performed By: #### L 400.0001 #### [facility] [address] [place], [address] Potassium [Moles/Vol] 3.8 mmol/L Normal 3.5-5.1 [facility] Comment on above: Performed By: #### L 400.0001 #### [facility] [address] [place], [address] Sodium [Moles/Vol] 139 mmol/L Normal 136-145 [facility] Comment on above: Performed By: #### L 400.0001 #### [facility] [address] [place], [address] T PROT 7.4 g/dL Normal 6.4-8.2 [facility] Comment on above: Performed By: #### L 400.0001 #### [facility] [address] [place], [address] Urea nitrogen [Mass/Vol] 4 mg/dL Low 03-05 [facility] Comment on above: Performed By: #### L 400.0001 #### [facility] [address] [place], [address] ,Serum,hCG Quali.on 05-06-2024 HCG, SERUM QUAL Positive Abnormal [facility] Comment on above: Result Comment: PREG MIRYAM TEST is *POSITIVE* RESULTS CALLED TO JUDI 05/06/24 Wood Ravi. REPORT READ BACK BY . SAME Performed By: #### L [id number] #### [facility] [address] [place], [address] Urinalysis, Completeon 05-06 BACTERIA Normal None Seen [facility] Comment on above: Order Comment: COLLE CTOR TO SPECIFY Result Comment: NO U RINE WAS COLLECTED. PATIENT DEPARTED ED. Performed By: #### L 400.0001 #### [facility] [address] [place], [address] BILIRUBIN URINE Normal Negative [facility] Comment on above: Order Comment: COLLE CTOR TO SPECIFY Result Comment: NO U RINE WAS COLLECTED. PATIENT DEPARTED ED. Performed By: #### L 400.0001 #### [facility] [address] [place], [address] Clarity (U) Normal Clear [facility] Comment on above: Order Comment: COLLE CTOR TO SPECIFY Result Comment: NO U RINE WAS COLLECTED. PATIENT DEPARTED ED. Performed By: #### L 400.0001 #### [facility] [address] [place], [address] Color (U) Normal Yellow [facility] Comment on above: Order Comment: MOODY CTOR TO SPECIFY Result Comment: NO U RINE WAS COLLECTED. PATIENT DEPARTED ED. Performed By: #### L 400.0001 #### [facility] [address] [place], [address] EPI,SQUAMOUS Normal 5-10 [facility] Comment on above: Order Comment: COLLE CTOR TO SPECIFY Result Comment: NO U RINE WAS COLLECTED. PATIENT DEPARTED ED. Performed By: #### L 400.0001 #### [facility] [address] [place], [address] GLUCOSE, UR Normal Normal [facility] Comment on above: Order Comment: MOODY CTOR TO SPECIFY Result Comment: NO U RINE WAS COLLECTED. PATIENT DEPARTED ED. Performed By: #### L 400.0001 #### [facility] [address] [place], [address] KETONE UR Normal Negative [facility] Comment on above: Order Comment: MOODY CTOR TO SPECIFY Result Comment: NO U RINE WAS COLLECTED. PATIENT DEPARTED ED. Performed By: #### L 400.0001 #### [facility] [address] [place], [address] LEUK ESTERASE Normal Negative [facility] Comment on above: Order Comment: MOODY CTOR TO SPECIFY Result Comment: NO U RINE WAS COLLECTED. PATIENT DEPARTED ED. Performed By: #### L 400.0001 #### [facility] [address] [place], [address] Mucus Ql (Urine sed) Normal [facility] Comment on above: Order Comment: MOODY CTOR TO SPECIFY Result Comment: NO U RINE WAS COLLECTED. PATIENT DEPARTED ED. Performed By: #### L 400.0001 #### [facility] [address] [place], [address] Nitrite Ql (U) Normal Negative [facility] Comment on above: Order Comment: COLLE CTOR TO SPECIFY Result Comment: NO U RINE WAS COLLECTED. PATIENT DEPARTED ED. Performed By: #### L 400.0001 #### [facility] [address] [place], [address] OCCULT BLOOD-UR Normal Negative [facility] Comment on above: Order Comment: COLLE CTOR TO SPECIFY Result Comment: NO U RINE WAS COLLECTED. PATIENT DEPARTED ED. Performed By: #### L 400.0001 #### [facility] [address] [place], [address] pH UR Normal 5.0 - 8.0 [facility] Comment on above: Order Comment: COLLE CTOR TO SPECIFY Result Comment: NO U RINE WAS COLLECTED. PATIENT DEPARTED ED. Performed By: #### L 400.0001 #### [facility] [address] [place], [address] PROT DIPSTX Normal Negative [facility] Comment on above: Order Comment: COLLE CTOR TO SPECIFY Result Comment: NO U RINE WAS COLLECTED. PATIENT DEPARTED ED. Performed By: #### L 400.0001 #### [facility] [address] [place], [address] RBC Normal 0-5 [facility] Comment on above: Order Comment: COLLE CTOR TO SPECIFY Result Comment: NO U RINE WAS COLLECTED. PATIENT DEPARTED ED. Performed By: #### L 400.0001 #### [facility] [address] [place], [address] SP.GR. DIPSTX Normal 1.002-1.030 [facility] Comment on above: Order Comment: COLLE CTOR TO SPECIFY Result Comment: NO U RINE WAS COLLECTED. PATIENT DEPARTED ED. Performed By: #### L 400.0001 #### [facility] [address] [place], [address] UR Preservative Normal [facility] Comment on above: Order Comment: COLLE CTOR TO SPECIFY Result Comment: NO U RINE WAS COLLECTED. PATIENT DEPARTED ED. Performed By: #### L [id number] #### [facility] [address] [place], [address] UROBILI Normal Normal [facility] Comment on above: Order Comment: COLLE CTOR TO SPECIFY Result Comment: NO U RINE WAS COLLECTED. PATIENT DEPARTED ED. Performed By: #### L 400.0001 #### [facility] [address] [place], [address] WBC Normal 0-5 [facility] Comment on above: Order Comment: COLLE CTOR TO SPECIFY Result Comment: NO U RINE WAS COLLECTED. PATIENT DEPARTED ED. Performed By: #### L [id number] #### [facility] [address] [place], [address] [facility]-05-20[facility] RO[facility] ([id number]) 5 F Date Time Provider Department 05/05/24 KATINA REDDY OBNICK During your visit today, we recorded the following information about you: Alison Yu RN 05/05/2024 4:04 PM Signed 11w2d For the last week and a half patient has been feeling shaky, like she could faint, dizzy, and nauseated. If she drinks a pop the feeling will subside, but then she's nauseated afterwards. States she is eating a snack every hour - carrots, chips, crackers (mostly carbs). Drinking x8 32 oz water bottles a day. She sometimes feels this way if she is standing up for while. Please advise. BOZENA Raymond Karmon, MD 05/05/2024 4:06 PM Signed Recommend snacks with protein AND fat. Should hydrate with water. Keep Saturday appt. MD Berto Powers Tara, RN 05/05/2024 4:18 PM Signed Pt notified and voiced understanding. Carine Doherty RN Allergies As of Date: 05/05/2024 (No Known Allergies) Date Reviewed: 04/17/2024 Reviewed by: Franco Caal APRN.HOG BUYER - Fully Assessed Reason for Visit: OB dizziness [Other] Prescriptions as of 05/05/2024 - pantop[address]ole DR (PROTONIX) 20 mg tablet Take 1 tablet by mouth once daily. - ondansetron (ZOFRAN) 4 mg tablet Take 1 tablet by mouth every 8 hours as needed for nausea/vomiting. - PNV/iron,carb/docusa t/folic ac (PRENA-CAP ORAL) Take 1 tablet by mouth once daily. Problem List As Of Date 05/05/2024 Noted Resolved ADHD (attention deficit hyperactivity disorder)*08/28/2011 with uncertain dates in first trimest*03/27/2024 Encounter for supervision of normal first pregn*03/27/2024 Family history of deafness [Z82.2] 03/27/2024 Nausea and vomiting during [O21.9] 03/27/2024 Heartburn during in first trimester [*03/27/2024 Anxiety during [O99.340, F41.9] 03/27/2024 Encounter Status:Closed by CARINE DOHERTY on 05/05/24 Normal [facility] US Pelvison 04-13-2024 Indication dating Impression Normal appearing anteflexed uterus measuring 83 mm x 66 mm x 52 mm. The central endometrial complex contains a gestational sac with a yolk sac and pole measuring 18.7 mm. Cardiac activity is present. CRL is consistent with patient's LMP. Both ovaries are visualized and appear normal. No adnexal masses identified. There is no free fluid visualized in the peritoneal cavity. Recommendations Viable menezes intrauterine with BOGDAN 11/15/2024 Follow up as clinically indicated. Method Transabdominal ultrasound examination. View: Adequate visualization Menezes . Number of embryos: 1 Dating LMP on: 2024 GA by LMP 8 w + 5 d BOGDAN by LMP: 11/15/2024 Ultrasound examination on: 04/10/2024 GA by U/S based upon: CRL GA by U/S 8 w + 3 d BOGDAN by U/S: 11/17/2024 Assigned: based on the LMP, selected on 04/10/2024 Assigned GA 8 w + 5 d Assigned BOGDAN: 11/15/2024 Assessment Gestational sac: visualized Location: intrauterine Yolk sac: visualized YS 3.0 mm <1% [place] Embryo: visualized CRL 18.7 mm 8w 3d 26% Hadlock Cardiac activity: present FHR 166 bpm Uterus Uterus: Visualized Uterus position: anteflexed Description of uterine malformations: none Myometrium: normal Cervix details: normal Uterus length 83 mm Uterus width 66 mm Uterus height 52 mm Uterus Vol 148.6 cm [place] no free fluid visualized Right Ovary Rt ovary: Visualized Rt ovary morphology: premenopausal normal follicular Rt ovary D1 29 mm Rt ovary D2 20 mm Rt ovary D3 22 mm Rt ovary Vol 6.6 cm Left Ovary Lt ovary: Visualized Lt ovary morphology: premenopausal normal follicular Lt ovary D1 23 mm Lt ovary D2 23 mm Lt ovary D3 19 mm Lt ovary Vol 5.0 cm Performed By: Carolyn Vega RDMS Read By: Terri Cancino M.D. MATERNAL MEDICINE [facility] US Pelvison 04-10-2024 Radiology Study observation (narrative) [facility] [place] ULTRASOUNDon 03-27-20 Indication Viability; confirm cardiac activity Impression Single intrauterine gestational sac, CRL indicates discrepancy from clinical dates, BOGDAN 11/22/24 based on today's ultrasound, cardiac activity is uncertain. Recommendations Follow up for repeat ultrasound in 1 week Method Transvaginal ultrasound examination. View: Adequate visualization Menezes . Number of embryos: 1 Dating LMP on: 2024 GA by LMP 6 w + 5 d BOGDAN by LMP: 11/15/2024 Ultrasound examination on: 03/27/2024 GA by U/S based upon: CRL GA by U/S 5 w + 5 d BOGDAN by U/S: 11/22/2024 Assigned: based on ultrasound (CRL), selected on 03/27/2024 Assigned GA 5 w + 5 d Assigned BOGDAN: 11/22/2024 Biometry Standard CRL 2.2 mm 5w 5d <1% [place] Assessment Gestational sac: visualized Location: intrauterine Yolk sac: visualized Embryo: visualized CRL 2.2 mm 5w 5d <1% [place] Cardiac activity: uncertain General Evaluation Cardiac activity uncertain Performed By: Toby Rome NP Read By: Toby Rome NP MATERNAL MEDICINE [facility] Radiology Study observation (narrative) [facility] UA DIP,URINE HCG (POC)on Beta HCG ( test) Ql (U) Positive Abnormal Negative [facility] Comment on above: Location:[facility], [address] [place] [address], [place], [address] Interpretation and review of laboratory results Abnormal [facility] Director Of Enterprise Strategy (POCT) Internal QC OK [facility] Location:[facility], [address] [facility], [place], [address] [facility] POINT OF CARE [facility] INFLUENZA A&B MOLECULAR (POC )on 09-19-2023 Flu A (POCT) Positive Abnormal Negative [facility] Procedural Control Valid [facility] STREP A MOLECULAR (POC)on Procedural Control Valid [facility] Strep A (POCT) Negative Negative [facility] C-REACTIVE PROTEIN (CRP)on 08-22-2022 CRP [Mass/Vol] <0.9 mg/dL [facility] CBC W Auto Differential pane l (Bld)on 06-22-2023 Basophils (Bld) [#/Vol] 0.04 10*3/uL <0.11 k/uL [facility] Basophils/100 WBC (Bld) 0.5 % [facility] Differential cell count method Nom (Bld) Auto [facility] Eosinophils (Bld) [#/Vol] 0.07 10*3/uL <0.46 k/uL [facility] Eosinophils/100 WBC (Bld) 0.8 % [facility] Erythrocyte distribution width (RBC) [Ratio] 12.2 % 11.5 - 15.0 % [facility] Hematocrit (Bld) [Volume fraction] 44.4 % 36.0 - 46.0 % [facility] Hemoglobin (Bld) [Mass/Vol] 14.4 g/dL 11.5 - 15.5 g/dL [facility] Immature granulocytes (Bld) [#/Vol] 0.04 10*3/uL <0.10 k/uL [facility] Immature granulocytes/100 WBC (Bld) 0.5 % [facility] Lymphocytes (Bld) [#/Vol] 2.01 10*3/uL 1.00 - 4.00 k/uL [facility] Lymphocytes/100 WBC (Bld) 24.0 % [facility] MCH (RBC) [Entitic mass] 29.0 pg 26.0 - 34.0 pg [facility] MCHC (RBC) [Mass/Vol] 32.4 g/dL 30.5 - 36.0 g/dL [facility] MCV (RBC) [Entitic vol] 89.3 fL 80.0 - 100.0 fL [facility] Monocytes (Bld) [#/Vol] 0.72 10*3/uL <0.87 k/uL [facility] Monocytes/100 WBC (Bld) 8.6 % [facility] Neutrophils (Bld) [#/Vol] 5.49 10*3/uL 1.45 - 7.50 k/uL [facility] Neutrophils/100 WBC (Bld) 65.6 % [facility] Nucleated RBC (Bld) [#/Vol] <0.01 k/uL [facility] Nucleated RBC/100 WBC (Bld) [Ratio] 0.0 /100 WBC [facility] Platelet mean volume (Bld) [Entitic vol] 11.4 fL 9.0 - 12.7 fL [facility] Platelets (Bld) [#/Vol] 265 10*3/uL 150 - 400 k /uL [facility] RBC (Bld) [#/Vol] 4.97 10*6/uL 3.90 - 5.2 0 m/uL [facility] WBC (Bld) [#/Vol] 8.37 10*3/uL 3.70 - 11. 00 k/uL [facility] CK CREATINE KINASEon 023 CK [Catalytic activity/Vol] 72 U/L 42 - 196 U/L [facility] Comprehensive metabolic 2000 panelon 06-22-2023 Albumin [Mass/Vol] 4.4 g/dL 3.9 - 4.9 g/dL Cl [facility] ALP [Catalytic activity/Vol] 131 U/L High 45 - 87 U/L [facility] ALT [Catalytic activity/Vol] 14 U/L 7 - 38 U/L [facility] Anion gap [Moles/Vol] 10 mmol/L 9 - 18 mmol/L [facility] AST [Catalytic activity/Vol] 18 U/L 13 - 35 U/L [facility] Bilirubin [Mass/Vol] 0.3 mg/dL 0.2 - 1 .3 mg/dL [facility] Calcium [Mass/Vol] 9.4 mg/dL 8.5 - 10. 2 mg/dL [facility] Chloride [Moles/Vol] 105 mmol/L 97 - 10 5 mmol/L [facility] CO2 [Moles/Vol] 24 mmol/L 22 - 30 mmol/L [facility] Creatinine [Mass/Vol] 0.63 mg/dL 0.58 - 0.96 mg/dL [facility] Estimated Glomerular Filtration Rate 132 mL/min/1.73m >=60 mL/min/1.73m [facility] Glucose [Mass/Vol] 86 mg/dL 74 - 99 mg/dL [facility] Potassium [Moles/Vol] 4.3 mmol/L 3.7 - 5.1 mmol/L [facility] Protein [Mass/Vol] 7.1 g/dL 6.3 - 8.0 g/dL [facility] Sodium [Moles/Vol] 139 mmol/L 136 - 144 mmol/L [facility] Urea nitrogen [Mass/Vol] 7 mg/dL 7 - 21 mg/d L [facility] ESR Westergren method (Bld) [Velocity]on 06-22-2023 ESR (Bld) [Velocity] 2 mm/h 0 - 20 mm/hr [facility] UA DIP, URINE (POC)on 2022 BILIRUBIN UA (POCT) Negative Negative [facility] CLARITY UA (POCT) Slightly Cloudy [facility] COLOR UA (POCT) Yellow [facility] GLUCOSE UA (POCT) Negative Negative mg/dL [facility] HEMOGLOBIN/BLOOD UA (POCT) Trace-intact Abnormal Negative [facility] KETONE UA (POCT) Negative Negative mg/dL [facility] LEUKOCYTES UA (POCT) Trace Abnormal Negative [facility] NITRITE UA (POCT) Negative Negative [facility] PH UA (POCT) 7.0 4.5 - 8.0 [facility] Protein Ql (U) Negative Negative mg/dL [facility] SPECIFIC GRAVITY UA (POCT) 1.025 1.005 - 1.030 [facility] UROBILINOGEN UA (POCT) 0.2 E.U./dL Normal E.U./ dL [facility] UA DIP, URINE (POC)on 2022 BILIRUBIN UA (POCT) Negative Negative [facility] CLARITY UA (POCT) Clear [facility] COLOR UA (POCT) Yellow [facility] GLUCOSE UA (POCT) Negative Negative mg/dL [facility] HEMOGLOBIN/BLOOD UA (POCT) Trace-intact Abnormal Negative [facility] [facility] KETONE UA (POCT) Negative Negative mg/dL [facility] LEUKOCYTES UA (POCT) Trace Abnormal Negative [facility] NITRITE UA (POCT) Negative Negative [facility] PH UA (POCT) 7.5 4.5 - 8.0 [facility] Protein Ql (U) Negative Negative mg/dL [facility] SPECIFIC GRAVITY UA (POCT) 1.015 1.005 - 1.030 [facility] UROBILINOGEN UA (POCT) 0.2 E.U./dL Normal E.U./ dL [facility] Vital Signs Date Time Vital Sign Value Performing Clinician Facility 04-29-2025 21:27-0400 Body temperature 98.1 [degF] Dr. Halie Butts DO Work Phone: [facility] 04-29-2025 21:27-0400 Diastolic blood pressure 57 mm[Hg] Dr. Halie turpin DO Work Phone: [facility] 04-29-2025 21:27-0400 Heart rate 75 /min Dr. Halie Butts DO Work Phone: [facility] 04-29-2025 21:27-0400 Respiratory rate 18 /min Dr. Halie Butts DO Work Phone: [facility] 04-29-2025 21:27-0400 SaO2% (BldA) [Mass fraction] 100 % Dr. Halie Butts DO Work Phone: [facility] 04-29-2025 21:27-0400 Systolic blood pressure 101 mm[Hg] Dr. Halie Butts DO Work Phone: [facility] 04-29-2025 18:01-0400 Body height 167.[address] Halie Butts DO Work Phone: [facility] 04-29-2025 18:01-0400 Body mass index (BMI) [Ratio] 25.9 kg/m2 Dr. Halie Butts DO Work Phone: [facility] 04-29-2025 18:01-0400 Body weight 72.[address] Halie Butts DO Work Phone: [facility] 04-29-2025 15:29-0400 Body mass index (BMI) [Ratio] 27.39 kg/m2 Ene Marv HEAD SAWYER.HOG BUYER Work Phone: [facility] 04-29-2025 15:29-0400 Body weight 72.94 kg Ene Marv HEAD [employer]WYER.HOG BUYER Work Phone: [facility] 04-29-2025 15:29-0400 Diastolic blood pressure 66 mm[Hg] Ene Marv [employer]WYER.HOG BUYER Work Phone: [facility] 04-29-2025 15:29-0400 Systolic blood pressure 118 mm[Hg] Ene Osprey HEAD [employer]WYER.HOG BUYER Work Phone: [facility] 04-16-2025 13:33-0400 Body mass index (BMI) [Ratio] 28.61 kg/m2 Toby Haury HEAD [employer]WYER.HOG BUYER Work Phone: [facility] 04-16-2025 13:33-0400 Body weight 76.2 kg Toby Haury HEAD [employer]WYER.HOG BUYER Work Phone: [facility] 04-16-2025 13:33-0400 Diastolic blood pressure 68 mm[Hg] Toby Haury HEAD [employer]WYER.HOG BUYER Work Phone: [facility] 04-16-2025 13:33-0400 Systolic blood pressure 120 mm[Hg] Toby Haury [employer]ER.H[employer] BUYER Work Phone: [facility] 04-14-2025 16:52-0400 Body mass index (BMI) [Ratio] 28.44 kg/m2 Diony Ferreira MD Work Phone: [facility] 04-14-2025 16:52-0400 Body weight 75.75 kg Diony Ferreira MD Work Phone: [facility] 04-14-2025 16:52-0400 Diastolic blood pressure 74 mm[Hg] Diony Ferreira MD Work Phone: [facility] 04-14-2025 16:52-0400 Heart rate 73 /min Diony Ferreira MD Work Phone: [facility] 04-14-2025 16:52-0400 Respiratory rate 12 /min Diony Ferreira MD Work Phone: [facility] 04-14-2025 16:52-0400 SaO2% (BldA) [Mass fraction] 98 % Diony Ferreira MD Work Phone: [facility] 04-14-2025 16:52-0400 Systolic blood pressure 110 mm[Hg] Diony Ferreira MD Work Phone: [facility] 04-08-2025 18:10-0400 Body temperature 97.6 [degF] Dr. Halie Butts DO Work Phone: [facility] 04-08-2025 18:10-0400 Diastolic blood pressure 78 mm[Hg] Dr. Halie turpin DO Work Phone: [facility] 04-08-2025 18:10-0400 Heart rate 64 /min Dr. Halie Butts DO Work Phone: [facility] 04-08-2025 18:10-0400 Respiratory rate 18 /min Dr. Halie Butts DO Work Phone: [facility] 04-08-2025 18:10-0400 SaO2% (BldA) [Mass fraction] 99 % Dr. Halie Butts DO Work Phone: [facility] 04-08-2025 18:10-0400 Systolic blood pressure 118 mm[Hg] Dr. Halie Butts DO Work Phone: [facility] 04-08-2025 13:56-0400 Body height 167.[address] Halie Butts DO Work Phone: [facility] 04-08-2025 13:56-0400 Body mass index (BMI) [Ratio] 23.3 kg/m2 Dr. Halie Butts DO Work Phone: [facility] 04-08-2025 13:56-0400 Body weight 65.[address] Halie Butts DO Work Phone: [facility] 04-02-2025 15:16-0400 Body mass index (BMI) [Ratio] 28.1 kg/m2 Paradise Diaz APRN.HOG BUYER Work Phone: [facility] 04-02-2025 15:16-0400 Body weight 74.84 kg Paradise Diaz APRN.HOG BUYER Work Phone: [facility] 04-02-2025 15:16-0400 Diastolic blood pressure 81 mm[Hg] Paradise Diaz APRN.HOG BUYER Work Phone: [facility] 04-02-2025 15:16-0400 Systolic blood pressure 119 mm[Hg] Paradise Diaz APRN.HOG BUYER Work Phone: [facility] 02-25-2025 16:49-0400 Body height 163.2 cm Diony Ferreira MD Work Phone: [facility] 02-25-2025 16:49-0400 Body mass index (BMI) [Ratio] 27.93 kg/m2 Diony Ferreira MD Work Phone: [facility] 02-25-2025 16:49-0400 Body temperature 98.29 [degF] Diony Ferreira MD Work Phone: [facility] 02-25-2025 16:49-0400 Body weight 74.39 kg Diony Ferreira MD Work Phone: [facility] 02-25-2025 16:49-0400 Diastolic blood pressure 78 mm[Hg] Diony Ferreira MD Work Phone: [facility] 02-25-2025 16:49-0400 Heart rate 88 /min Diony Ferreira MD Work Phone: [facility] 02-25-2025 16:49-0400 Respiratory rate 12 /min Diony Ferreira MD Work Phone: [facility] 02-25-2025 16:49-0400 SaO2% (BldA) [Mass fraction] 98 % Diony Ferreira MD Work Phone: [facility] 02-25-2025 16:49-0400 Systolic blood pressure 110 mm[Hg] Diony Ferreira MD Work Phone: [facility] 01-12-2025 18:27-0400 Body mass index (BMI) [Ratio] 25.09 kg/m2 Lisa Swank HEAD [employer]WYER.HOG BUYER Work Phone: [facility] 01-12-2025 18:27-0400 Body temperature 98.71 [degF] Lisa Swank HEAD [employer]WYER.HOG BUYER Work Phone: [facility] 01-12-2025 18:27-0400 Body weight 70.5 kg Lisa Swank HEAD [employer]WYER.HOG BUYER Work Phone: [facility] 01-12-2025 18:27-0400 Diastolic blood pressure 82 mm[Hg] Lisa Swank HEAD [employer]WYER.HOG BUYER Work Phone: [facility] 01-12-2025 18:27-0400 Heart rate 90 /min Lisa Swank HEAD [employer]WYER.HOG BUYER Work Phone: [facility] 01-12-2025 18:27-0400 Respiratory rate 18 /min Lisa Swank HEAD [employer]WYER.HOG BUYER Work Phone: [facility] 01-12-2025 18:27-0400 SaO2% (BldA) [Mass fraction] 99 % Lisa Swank [employer]ER.HOG BUYER Work Phone: [facility] 01-12-2025 18:27-0400 Systolic blood pressure 124 mm[Hg] Lisa Swank HEAD [employer]WYER.HOG BUYER Work Phone: [facility] 12-30-2024 15:50-0400 Body mass index (BMI) [Ratio] 24.53 kg/m2 Toby Rome [employer]WYER.HOG BUYER Work Phone: [facility] 12-30-2024 15:50-0400 Body weight 68.95 kg Toby Haury [employer]WYER.HOG BUYER Work Phone: [facility] 12-30-2024 15:50-0400 Diastolic blood pressure 60 mm[Hg] Toby Haury HEAD [employer]WYER.HOG BUYER Work Phone: [facility] 12-30-2024 15:50-0400 Systolic blood pressure 110 mm[Hg] Toby Haury [employer]ER.HOG BUYER Work Phone: [facility] 11-26-2024 16:04-0400 Body mass index (BMI) [Ratio] 24.53 kg/m2 Toby Haury [employer]ER.HOG BUYER Work Phone: [facility] 11-26-2024 16:04-0400 Body weight 68.95 kg Toby Haury [employer]ER.HOG BUYER Work Phone: [facility] 11-26-2024 16:04-0400 Diastolic blood pressure 62 mm[Hg] Toby Haury [employer]ER.HOG BUYER Work Phone: [facility] 11-26-2024 16:04-0400 Systolic blood pressure 104 mm[Hg] Toby Haury [employer].H[employer] BUYER Work Phone: [facility] 11-12-2024 15:33-0400 Body mass index (BMI) [Ratio] 24.2 kg/m2 Krislyn Aberegg PA Work Phone: [facility] 11-12-2024 15:33-0400 Body temperature 98.49 [degF] Krislyn Aberegg PA Work Phone: [facility] 11-12-2024 15:33-0400 Body weight 68 kg Krislyn Aberegg PA Work Phone: [facility] 11-12-2024 15:33-0400 Diastolic blood pressure 82 mm[Hg] Krislyn Aberegg PA Work Phone: [facility] 11-12-2024 15:33-0400 Heart rate 97 /min Krislyn Aberegg PA Work Phone: [facility] 11-12-2024 15:33-0400 Respiratory rate 20 /min Krislyn Aberegg PA Work Phone: [facility] 11-12-2024 15:33-0400 SaO2% (BldA) [Mass fraction] 97 % Krislyn Aberegg PA Work Phone: [facility] 11-12-2024 15:33-0400 Systolic blood pressure 109 mm[Hg] Krislyn Aberegg PA Work Phone: [facility] 10-29-2024 14:46-0400 Body mass index (BMI) [Ratio] 24.37 kg/m2 Toby Haury HEAD [employer]ER.HOG BUYER Work Phone: [facility] 10-29-2024 14:46-0400 Body weight 68.49 kg Toby Haury [employer]ER.HOG BUYER Work Phone: [facility] 10-29-2024 14:46-0400 Diastolic blood pressure 60 mm[Hg] Toby Haury [employer]ER.HOG BUYER Work Phone: [facility] 10-29-2024 14:46-0400 Systolic blood pressure 98 mm[Hg] Toby Haury [employer]ER.HOG BUYER Work Phone: [facility] 10-22-2024 13:35-0500 Body mass index (BMI) [Ratio] 25.34 kg/m2 Belle Carrillo MD Work Phone: [facility] 10-22-2024 13:35-0500 Body weight 71.22 kg Belle Carrillo MD Work Phone: [facility] 10-22-2024 13:35-0500 Diastolic blood pressure 68 mm[Hg] Belle Carrillo MD Work Phone: [facility] 10-22-2024 13:35-0500 Systolic blood pressure 114 mm[Hg] Belle Carrillo MD Work Phone: [facility] 10-15-2024 15:40-0500 Body mass index (BMI) [Ratio] 25.31 kg/m2 Alison Grimm MD Work Phone: [facility] 10-15-2024 15:40-0500 Body weight 71.12 kg Alison Grimm MD Work Phone: [facility] 10-15-2024 15:40-0500 Diastolic blood pressure 60 mm[Hg] Alison Grimm MD Work Phone: [facility] 10-15-2024 15:40-0500 Systolic blood pressure 98 mm[Hg] Alison Grimm MD Work Phone: [facility] 09-30-2024 16:11-0500 Body mass index (BMI) [Ratio] 25.02 kg/m2 Seth Plotts HEAD SAWYER.CNM Work Phone: [facility] 09-30-2024 16:11-0500 Body weight 70.31 kg Seth Plotts HEAD SAWYER.CNM Work Phone: [facility] 09-30-2024 16:11-0500 Diastolic blood pressure 66 mm[Hg] Seth Plotts HEAD SAWYER.CNM Work Phone: [facility] 09-30-2024 16:11-0500 Systolic blood pressure 110 mm[Hg] Seth Plotts HEAD SAWYER.CNM Work Phone: [facility] 09-23-2024 15:13-0500 Body mass index (BMI) [Ratio] 25.18 kg/m2 Peggy Cedillo HEAD SAWYER.CNM Work Phone: [facility] 09-23-2024 15:13-0500 Body weight 70.76 kg Peggy Cedillo HEAD SAWYER.CNM Work Phone: [facility] 09-23-2024 15:13-0500 Diastolic blood pressure 60 mm[Hg] Peggy Cedillo HEAD SAWYER.CNM Work Phone: [facility] 09-23-2024 15:13-0500 Systolic blood pressure 104 mm[Hg] Peggy Cedillo HEAD SAWYER.CNM Work Phone: [facility] 09-15-2024 15:55-0500 Body mass index (BMI) [Ratio] 24.94 kg/m2 Thompson Peña MD Work Phone: [facility] 09-15-2024 15:55-0500 Body weight 70.08 kg Thompson Peña MD Work Phone: [facility] 09-15-2024 15:55-0500 Diastolic blood pressure 62 mm[Hg] Thompson Peña MD Work Phone: [facility] 09-15-2024 15:55-0500 Systolic blood pressure 110 mm[Hg] Thompson Peña MD Work Phone: [facility] 09-08-2024 15:12-0500 Body mass index (BMI) [Ratio] 24.69 kg/m2 Belle Carrillo MD Work Phone: [facility] 09-08-2024 15:12-0500 Body weight 69.4 kg Belle Carrillo MD Work Phone: [facility] 09-08-2024 15:12-0500 Diastolic blood pressure 64 mm[Hg] Belle Carrillo MD Work Phone: [facility] 09-08-2024 15:12-0500 Systolic blood pressure 106 mm[Hg] Belle Carrillo MD Work Phone: [facility] 08-25-2024 16:35-0500 Body mass index (BMI) [Ratio] 24.86 kg/m2 Nurse Wstr Work Phone: [facility] 08-25-2024 16:35-0500 Body weight 69.85 kg Nurse Wstr Work Phone: [facility] 08-25-2024 16:35-0500 Diastolic blood pressure 73 mm[Hg] Nurse Wstr Work Phone: [facility] 08-25-2024 16:35-0500 Systolic blood pressure 110 mm[Hg] Nurse Wstr Work Phone: [facility] 08-24-2024 15:33-0500 Body mass index (BMI) [Ratio] 24.89 kg/m2 Suellen Cortes MD Work Phone: [facility] 08-24-2024 15:33-0500 Body weight 69.94 kg Suellen Cortes MD Work Phone: [facility] 08-24-2024 15:33-0500 Diastolic blood pressure 60 mm[Hg] Suellen Cortes MD Work Phone: [facility] 08-24-2024 15:33-0500 Systolic blood pressure 98 mm[Hg] Suellen Cortes MD Work Phone: [facility] 07-27-2024 15:47-0500 Body mass index (BMI) [Ratio] 23.89 kg/m2 Toby Haury HEAD [employer]WYER.HOG BUYER Work Phone: [facility] 07-27-2024 15:47-0500 Body weight 67.13 kg Toby Haury [employer]WYER.HOG BUYER Work Phone: [facility] 07-27-2024 15:47-0500 Diastolic blood pressure 60 mm[Hg] Toby Haury HEAD [employer]WYER.HOG BUYER Work Phone: [facility] 07-27-2024 15:47-0500 Systolic blood pressure 110 mm[Hg] Toby Haury HEAD [employer]WYER.HOG BUYER Work Phone: [facility] 07-13-2024 15:21-0500 Body mass index (BMI) [Ratio] 23.57 kg/m2 Peggy Cedillo HEAD SAWYER.CNM Work Phone: [facility] 07-13-2024 15:21-0500 Body weight 66.22 kg Peggy Cedillo HEAD SAWYER.CNM Work Phone: [facility] 07-13-2024 15:21-0500 Diastolic blood pressure 62 mm[Hg] Peggy Cedillo HEAD [employer]WYER.CNM Work Phone: [facility] 07-13-2024 15:21-0500 Systolic blood pressure 90 mm[Hg] Peggy Cedillo HEAD SAWYER.CNM Work Phone: [facility] 06-30-2024 16:14-0500 Body mass index (BMI) [Ratio] 22.92 kg/m2 Belle Carrillo MD Work Phone: [facility] 06-30-2024 16:14-0500 Body weight 64.41 kg Belle Carrillo MD Work Phone: [facility] 06-30-2024 16:14-0500 Diastolic blood pressure 64 mm[Hg] Belle Carrillo MD Work Phone: [facility] 06-30-2024 16:14-0500 Systolic blood pressure 98 mm[Hg] Belle Carrillo MD Work Phone: [facility] 06-05-2024 15:51-0400 Body weight 66.2256 kg TOBY ROME [facility] Comment on above: Order Comment: Specimen Type: BLOOD SPEC IMENOrdering Facility: [facility] Address: [address] [place] [address] Performed By: #### S EQ2 ####[employer] LABCLIA [id number] [place] [address] 06-05-2024 15:36-0400 Body mass index (BMI) [Ratio] 23.08 kg/m2 Peggy Cedillo APRN.CNM Work Phone: [facility] 06-05-2024 15:36-0400 Body weight 64.86 kg Peggy Cedillo APRN.CNM Work Phone: [facility] 06-05-2024 15:36-0400 Diastolic blood pressure 60 mm[Hg] Peggy Cedillo APRN.CNM Work Phone: [facility] 06-05-2024 15:36-0400 Systolic blood pressure 100 mm[Hg] Peggy Cedillo APRN.CNEvelin Work Phone: [facility] 05-25-2024 18:31-0400 Body mass index (BMI) [Ratio] 23.63 kg/m2 Franco Caal APRN.HOG BUYER Work Phone: [facility] 05-25-2024 18:31-0400 Body temperature 98.49 [degF] Franco Caal HEAD [employer]WYER.HOG BUYER Work Phone: [facility] 05-25-2024 18:31-0400 Body weight 66.4 kg Franco Caal HEAD SAWYER.HOG BUYER Work Phone: [facility] 05-25-2024 18:31-0400 Diastolic blood pressure 68 mm[Hg] Franco Caal HEAD SAWYER.HOG BUYER Work Phone: [facility] 05-25-2024 18:31-0400 Heart rate 88 /min Franco Caal HEAD SAWYER.HOG BUYER Work Phone: [facility] 05-25-2024 18:31-0400 Respiratory rate 16 /min Franco Caal HEAD SAWYER.HOG BUYER Work Phone: [facility] 05-25-2024 18:31-0400 SaO2% (BldA) [Mass fraction] 98 % Franco Caal HEAD [employer]WYER.HOG BUYER Work Phone: [facility] 05-25-2024 18:31-0400 Systolic blood pressure 110 mm[Hg] Franco Caal HEAD [employer]WYER.HOG BUYER Work Phone: [facility] 05-22-2024 15:09-0400 Body mass index (BMI) [Ratio] 23.27 kg/m2 Toby Rome HEAD SAWYER.HOG BUYER Work Phone: [facility] 05-22-2024 15:09-0400 Body weight 65.41 kg Toby Rome HEAD SAWYER.HOG BUYER Work Phone: [facility] 05-22-2024 15:09-0400 Diastolic blood pressure 64 mm[Hg] Toby Haury HEAD SAWYER.HOG BUYER Work Phone: [facility] 05-22-2024 15:09-0400 Systolic blood pressure 98 mm[Hg] Toby Haury HEAD SAWYER.HOG BUYER Work Phone: [facility] 05-17-2024 18:19-0400 Diastolic blood pressure 82 mm[Hg] [employer] 05-17-2024 18:19-0400 Heart rate 75 /min [facility] 05-17-2024 18:19-0400 Respiratory rate 16 /min [facility] 05-17-2024 18:19-0400 SaO2% (BldA) [Mass fraction] 99 % [facility] 05-17-2024 18:19-0400 Systolic blood pressure 135 mm[Hg] [facility] 05-17-2024 16:36-0400 Body temperature 98.49 [degF] [facility] 05-17-2024 16:34-0400 Body height 167.6 cm [facility] 05-17-2024 16:34-0400 Body mass index (BMI) [Ratio] 23.73 kg/m2 [facility] 05-17-2024 16:34-0400 Body weight 66.68 kg [facility] 05-13-2024 09:27-0400 Body weight 66.2256 kg TOBY ROME [facility] Comment on above: Order Comment: Specimen Type: BLOOD SPEC IMENOrdering Facility: [facility] Address: [address] [place] [address] Performed By: #### S EQ1 ####[employer] LABCLIA [id number] [place] [address] 05-13-2024 09:05-0400 Body mass index (BMI) [Ratio] 23.57 kg/m2 Toby Rome APRN.HOG BUYER Work Phone: [facility] 05-13-2024 09:05-0400 Body weight 66.22 kg Toby Rome APRN.HOG BUYER Work Phone: [facility] 05-13-2024 09:05-0400 Diastolic blood pressure 70 mm[Hg] Toby Rome APRN.HOG BUYER Work Phone: [facility] 05-13-2024 09:05-0400 Heart rate 94 /min Toby Rome APRN.HOG BUYER Work Phone: [facility] 05-13-2024 09:05-0400 Respiratory rate 16 /min Toby Rome APRN.HOG BUYER Work Phone: [facility] 05-13-2024 09:05-0400 SaO2% (BldA) [Mass fraction] 98 % Toby Hasherin HEAD SAWYER.HOG BUYER Work Phone: [facility] 05-13-2024 09:05-0400 Systolic blood pressure 102 mm[Hg] Toby Haury HEAD SAWYER.HOG BUYER Work Phone: [facility] 05-08-2024 15:40-0400 Body mass index (BMI) [Ratio] 23.73 kg/m2 Toby Haury HEAD SAWYER.HOG BUYER Work Phone: [facility] 05-08-2024 15:40-0400 Body weight 66.68 kg Tobyanneliese Zendejassherin HEAD SAWYER.HOG BUYER Work Phone: [facility] 05-08-2024 15:40-0400 Diastolic blood pressure 70 mm[Hg] Toby Haury HEAD SAWYER.HOG BUYER Work Phone: [facility] 05-08-2024 15:40-0400 Systolic blood pressure 102 mm[Hg] Toby Haury HEAD SAWYER.HOG BUYER Work Phone: [facility] 04-17-2024 15:35-0400 Body mass index (BMI) [Ratio] 24.55 kg/m2 Franco Caal HEAD SAWYER.HOG BUYER Work Phone: [facility] 04-17-2024 15:35-0400 Body temperature 97.9 [degF] Franco Caal HEAD SAWYER.HOG BUYER Work Phone: [facility] 04-17-2024 15:35-0400 Body weight 69 kg Franco Caal HEAD SAWYER.HOG BUYER Work Phone: [facility] 04-17-2024 15:35-0400 Diastolic blood pressure 70 mm[Hg] Franco Caal HEAD SAWYER.HOG BUYER Work Phone: [facility] 04-17-2024 15:35-0400 Heart rate 92 /min Franco Caal HEAD SAWYER.HOG BUYER Work Phone: [facility] 04-17-2024 15:35-0400 Respiratory rate 20 /min Franco Afua HEAD SAWYER.HOG BUYER Work Phone: [facility] 04-17-2024 15:35-0400 SaO2% (BldA) [Mass fraction] 97 % Franco Pendlebury HEAD SAWYER.HOG BUYER Work Phone: [facility] 04-17-2024 15:35-0400 Systolic blood pressure 106 mm[Hg] Franco Pendlebury HEAD SAWYER.HOG BUYER Work Phone: [facility] 04-01-2024 15:25-0400 Body mass index (BMI) [Ratio] 25.34 kg/m2 Kirby Moomaw HEAD SAWYER.HOG BUYER Work Phone: [facility] 04-01-2024 15:25-0400 Body temperature 98.6 [degF] Kirby Moomaw HEAD SAWYER.HOG BUYER Work Phone: [facility] 04-01-2024 15:25-0400 Body weight 71.2 kg Kirby Moomaw HEAD SAWYER.HOG BUYER Work Phone: [facility] 04-01-2024 15:25-0400 Diastolic blood pressure 64 mm[Hg] Kirby Moomaw HEAD SAWYER.HOG BUYER Work Phone: [facility] 04-01-2024 15:25-0400 Heart rate 105 /min Kirby Moomaw HEAD SAWYER.HOG BUYER Work Phone: [facility] 04-01-2024 15:25-0400 Respiratory rate 20 /min Kirby Moomaw HEAD SAWYER.HOG BUYER Work Phone: [facility] 04-01-2024 15:25-0400 SaO2% (BldA) [Mass fraction] 96 % Kirby Moomaw HEAD SAWYER.HOG BUYER Work Phone: [facility] 04-01-2024 15:25-0400 Systolic blood pressure 100 mm[Hg] Kirby Moomaw HEAD SAWYER.HOG BUYER Work Phone: [facility] 03-27-2024 10:56-0400 Body height 167.6 cm Toby Rome HEAD SAWYER.HOG BUYER Work Phone: [facility] 03-27-2024 10:56-0400 Body mass index (BMI) [Ratio] 25.5 kg/m2 Toby Hasherin HEAD SAWYER.HOG BUYER Work Phone: [facility] 03-27-2024 10:56-0400 Body weight 71.67 kg Toby Hasherin HEAD SAWYER.HOG BUYER Work Phone: [facility] 03-27-2024 10:56-0400 Diastolic blood pressure 70 mm[Hg] Toby Haury HEAD SAWYER.HOG BUYER Work Phone: [facility] 03-27-2024 10:56-0400 Heart rate 76 /min Toby Haury HEAD SAWYER.HOG BUYER Work Phone: [facility] 03-27-2024 10:56-0400 Respiratory rate 14 /min Toby Haury HEAD SAWYER.HOG BUYER Work Phone: [facility] 03-27-2024 10:56-0400 SaO2% (BldA) [Mass fraction] 98 % Toby Hasherin HEAD SAWYER.HOG BUYER Work Phone: [facility] 03-27-2024 10:56-0400 Systolic blood pressure 112 mm[Hg] Toby Haury HEAD SAWYER.HOG BUYER Work Phone: [facility] 03-09-2024 15:19-0400 Body temperature 98.8 [degF] Franoc Pendlebury HEAD SAWYER.HOG BUYER Work Phone: [facility] 03-09-2024 15:19-0400 Body weight 72.8 kg Franco Afua HEAD SAWYER.HOG BUYER Work Phone: [facility] 03-09-2024 15:19-0400 Diastolic blood pressure 64 mm[Hg] Franco Pendlebury HEAD SAWYER.HOG BUYER Work Phone: [facility] 03-09-2024 15:19-0400 Heart rate 92 /min Franco Pendlebury HEAD SAWYER.HOG BUYER Work Phone: [facility] 03-09-2024 15:19-0400 Respiratory rate 20 /min Franco Pendlebury HEAD SAWYER.HOG BUYER Work Phone: [facility] 03-09-2024 15:19-0400 SaO2% (BldA) [Mass fraction] 98 % Franco Shellylebury HEAD SAWYER.HOG BUYER Work Phone: [facility] 03-09-2024 15:19-0400 Systolic blood pressure 100 mm[Hg] Franco Pendlebury HEAD SAWYER.HOG BUYER Work Phone: [facility] 10-07-2023 14:26-0500 Diastolic blood pressure 72 mm[Hg] Toby Haury HEAD SAWYER.HOG BUYER Work Phone: [facility] 10-07-2023 14:26-0500 Systolic blood pressure 116 mm[Hg] Toby Haury HEAD SAWYER.HOG BUYER Work Phone: [facility] 10-07-2023 14:10-0500 Body weight 67.77 kg Toby Haury HEAD SAWYER.HOG BUYER Work Phone: [facility] 09-19-2023 15:06-0500 Body temperature 100.99 [degF] Miguel Praisler-Wood HEAD SAWYER.HOG BUYER Work Phone: [facility] 09-19-2023 15:06-0500 Body weight 66.68 kg Miguel Praisler-Wood HEAD SAWYER.HOG BUYER Work Phone: [facility] 09-19-2023 15:06-0500 Diastolic blood pressure 77 mm[Hg] Miguel Praisler-Wood HEAD SAWYER.HOG BUYER Work Phone: [facility] 09-19-2023 15:06-0500 Heart rate 103 /min Miguel Praisler-Wood HEAD SAWYER.HOG BUYER Work Phone: [facility] 09-19-2023 15:06-0500 Respiratory rate 20 /min Miguel Praisler-Wood HEAD SAWYER.HOG BUYER Work Phone: [facility] 09-19-2023 15:06-0500 SaO2% (BldA) [Mass fraction] 99 % Miguel Praisler-Wood HEAD SAWYER.HOG BUYER Work Phone: [facility] 09-19-2023 15:06-0500 Systolic blood pressure 110 mm[Hg] Miguel Praisler-Wood HEAD SAWYER.HOG BUYER Work Phone: [facility] 06-21-2023 16:06-0400 Body temperature 98.8 [degF] Kuldeep Khan MD Work Phone: [facility] 06-21-2023 16:06-0400 Body weight 61.24 kg Kuldeep Khan MD Work Phone: [facility] 06-21-2023 16:06-0400 Heart rate 80 /min Kuldeep Khan MD Work Phone: [facility] 06-21-2023 16:06-0400 Respiratory rate 16 /min Kuldeep Khan MD Work Phone: [facility] 03-04-2023 16:19-0400 Body temperature 98.91 [degF] Miguel Praisler-Wood HEAD SAWYER.HOG BUYER Work Phone: [facility] 03-04-2023 16:19-0400 Body weight 54.07 kg Miguel Praisler-Wood HEAD SAWYER.HOG BUYER Work Phone: [facility] 03-04-2023 16:19-0400 Diastolic blood pressure 62 mm[Hg] Miguel Praisler-Wood HEAD SAWYER.HOG BUYER Work Phone: [facility] 03-04-2023 16:19-0400 Heart rate 97 /min Miguel Praisler-Wood HEAD SAWYER.HOG BUYER Work Phone: [facility] 03-04-2023 16:19-0400 Respiratory rate 18 /min Miguel Praisler-Wood HEAD SAWYER.HOG BUYER Work Phone: [facility] 03-04-2023 16:19-0400 SaO2% (BldA) [Mass fraction] 99 % Miguel Praisler-Wood HEAD SAWYER.HOG BUYER Work Phone: [facility] 03-04-2023 16:19-0400 Systolic blood pressure 104 mm[Hg] Miguel Praisler-Wood HEAD SAWYER.HOG BUYER Work Phone: [facility] 11-27-2022 19:07-0400 Body temperature 98.4 [degF] Franco Pattersonlauren HEAD SAWYER.HOG BUYER Work Phone: [facility] 11-27-2022 19:07-0400 Body weight 51.08 kg Franco Pattersonlauren HEAD SAWYER.HOG BUYER Work Phone: [facility] 11-27-2022 19:07-0400 Diastolic blood pressure 60 mm[Hg] Franco Pattersonlauren HEAD SAWYER.HOG BUYER Work Phone: [facility] 11-27-2022 19:07-0400 Heart rate 90 /min Franco Pattersonlauren HEAD SAWYER.HOG BUYER Work Phone: [facility] 11-27-2022 19:07-0400 Respiratory rate 18 /min Franco Pattersonlauren HEAD SAWYER.HOG BUYER Work Phone: [facility] 11-27-2022 19:07-0400 SaO2% (BldA) [Mass fraction] 99 % Franco Pattersonlauren HEAD SAWYER.HOG BUYER Work Phone: [facility] 11-27-2022 19:07-0400 Systolic blood pressure 98 mm[Hg] [facility].HOG BUYER Work Phone: [facility] Encounters Encounter Date Encounter Type Care Provider Facility Start: 04-30-2025 End: 04-30-2025 Telephone encounter Nurse Volleyball Assembler [facility] Work Phone: Obstetrics/Gynecology Comment on above: PRAF Start: 04-29-2025 End: 04-29-2025 Emergency department patient visit Dr. Halie Butts DO Work Phone: -Emergency Department Work Phone: Start: 04-29-2025 End: 04-29-2025 ambulatory ENE EL PASO Facility:[facility] Start: 04-29-2025 End: 04-29-2025 Patient encounter procedure Ene Osprey HEAD SAWYER.HOG BUYER Work Phone: OB/Gynecology Comment on above: Encounter for superv ision of normal in multigravida in first trimester (HCC) (Primary Dx); 7 weeks gestation of (HCC); Short interval between pregnancies affecting , antepartum (HCC); Encounter to determine viability of , single or unspecified fetus (HCC); with uncertain dates in first trimester (HCC); Screen for STD (sexually transmitted disease); Nausea and vomiting during (HCC) Start: 04-22-2025 End: 04-22-2025 Telephone encounter Seth Castro APRN.CNM Work Phone: OB/Gynecology Comment on above: Nausea Start: 04-19-2025 End: 04-19-2025 Telephone encounter Alison Grimm MD Work Phone: OB/Gynecology Start: 04-16-2025 End: 04-16-2025 E-mail encounter from caregiver Diony Ferreira MD Work Phone: [facility] Start: 04-16-2025 End: 04-16-2025 Follow-up encounter Belle Carrillo MD Work Phone: OB/Gynecology Start: 04-16-2025 End: 04-16-2025 Patient encounter procedure Toby Rome APRN.HOG BUYER Work Phone: OB/Gynecology Comment on above: with uncer tain dates in first trimester (HCC) (Primary Dx); with uncertain viability, single or unspecified fetus (HCC); Left lower quadrant pain Start: 04-16-2025 End: 04-16-2025 ambulatory Diony Ferreira MD Work Phone: [facility] Comment on above: Labs Start: 04-14-2025 End: 04-14-2025 Office outpatient visit 40 minutes Diony Ferreira MD Work Phone: [facility] Comment on above: Chronic insomnia (Pr imary Dx); Eczema, unspecified type; Depression, unspecified depression type; Hyperemesis gravidarum (HCC) Start: 04-14-2025 End: 04-14-2025 ambulatory DIONY FERREIRA Facility:[facility] Start: 04-14-2025 End: 04-14-2025 ambulatory DIONY FERREIRA Facility:[facility] Start: 04-13-2025 End: 04-13-2025 Orders Only Diony Ferreira MD Work Phone: [facility] Comment on above: Chronic midline low back pain, unspecified whether sciatica present (Primary Dx) Start: 04-08-2025 End: 04-12-2025 Telephone encounter Suellen Cortes MD Work Phone: OB/Gynecology Comment on above: LLQ Pain in early pr egnancy Start: 04-08-2025 End: 04-08-2025 Emergency department patient visit Dr. Halie Butts DO Work Phone: -Emergency Department Work Phone: Start: 04-04-2025 End: 04-04-2025 Telephone encounter Alison Grimm MD Work Phone: OB/Gynecology Start: 04-02-2025 End: 04-02-2025 Patient encounter procedure Paradise Diaz APRN.[facility] Work Phone: OB/Gynecology Comment on above: Missed menses (Prima ry Dx); Encounter for test, result positive (HCC) Start: 04-02-2025 End: 04-02-2025 ambulatory PARADISE DIAZ Facility:[facility] Start: 03-03-2025 End: 03-03-2025 Subsequent hospital visit by physician [employer]ri [employer] [facility] (I-Stat/1.5t) Work Phone: Radiology Start: 03-03-2025 End: 03-03-2025 ambulatory Diony Ferreira MD Work Phone: [facility] Comment on above: test Start: 03-03-2025 End: 03-03-2025 E-mail encounter from caregiver Diony Ferreira MD Work Phone: [facility] Start: 03-03-2025 End: 04-09-2025 Telephone encounter Diony Ferreira MD Work Phone: [facility] Comment on above: Patient Update Start: 02-25-2025 End: 02-25-2025 Office outpatient new 45 minutes Diony Ferreira MD Work Phone: [facility] Comment on above: mood diso rder (HCC) (Primary Dx); Chronic midline thoracic back pain Start: 02-25-2025 End: 02-25-2025 ambulatory KULDEEP KHAN Facility:[facility] Start: 02-23-2025 End: 02-24-2025 Telephone encounter Kuldeep Khan MD Work Phone: [facility] Comment on above: Transition Of Care Start: 02-23-2025 End: 02-24-2025 Well adult Kuldeep Khan MD Work Phone: [facility] Start: 01-12-2025 End: 01-12-2025 Patient encounter procedure Lisa Gregory HEAD SAWYER.HOG BUYER Work Phone: [facility] Comment on above: Missed period (Prima ry Dx); Mastitis Start: 01-12-2025 End: 01-12-2025 ambulatory LISA GREGORY Facility:[facility] Start: 12-30-2024 End: 12-30-2024 Patient encounter procedure Toby Haury HEAD SAWYER.HOG BUYER Work Phone: OB/Gynecology Comment on above: mood diso rder (HCC) (Primary Dx) Start: 12-30-2024 End: 12-30-2024 ambulatory TOBY ROME Facility:[facility] Start: 11-26-2024 End: 11-26-2024 ambulatory TOBY [facility] Facility:[facility] Start: 11-26-2024 End: 11-26-2024 Patient encounter procedure Toby Haury HEAD SAWYER.HOG BUYER Work Phone: OB/Gynecology Comment on above: care and examination (HCC) (Primary Dx); mood disorder (HCC) Start: 11-12-2024 End: 11-12-2024 ambulatory KULDEEP Anand KHAN Facility:[facility] Start: 11-12-2024 End: 11-12-2024 Patient encounter procedure George Pretty PA Work Phone: [facility] Comment on above: Mastitis (Primary Dx ); Rash Start: 10-29-2024 End: 10-29-2024 ambulatory KATINA REDDY Facility:[facility] Start: 10-29-2024 End: 10-29-2024 Patient encounter procedure Toby Haury HEAD SAWYER.HOG BUYER Work Phone: OB/Gynecology Comment on above: care and examination immediately after delivery (Primary Dx); anxiety; Pain of right thigh Start: 10-29-2024 End: 11-05-2024 Telephone encounter Toby Latricia BAILEY Work Phone: OB/Gynecology Comment on above: Anxiety Start: 10-22-2024 End: 10-24-2024 Evaluation and management of inpatient [facility] Facility:[facility] Start: 10-22-2024 End: 10-23-2024 ambulatory Alison Grimm MD Work Phone: OB/Gynecology Comment on above: Ob Delivery Note Start: 10-22-2024 End: 10-22-2024 Patient encounter procedure Belle Carrillo MD Work Phone: OB/Gynecology Comment on above: Supervision of high risk in third trimester (Primary Dx); 36 weeks gestation of ; Threatened labor, third trimester Start: 10-19-2024 End: 10-19-2024 Refill Alison Grimm MD Work Phone: OB/Gynecology Comment on above: Refill Request Start: 10-15-2024 End: 10-15-2024 ambulatory [facility] Facility:[facility] Start: 10-15-2024 End: 10-15-2024 Patient encounter procedure Alison Grimm MD Work Phone: OB/Gynecology Comment on above: 35 weeks gestation o f (Primary Dx); Pyelonephritis affecting in third trimester; Supervision of high risk in third trimester; Cervix, short (affecting ) Start: 10-13-2024 End: 10-13-2024 Telephone encounter Katina Reddy MD Work Phone: OB/Gynecology Comment on above: Orders Start: 10-12-2024 End: 10-13-2024 Evaluation and management of inpatient Thompson Trevino Facility:[facility] Start: 10-11-2024 End: 10-12-2024 ambulatory [facility] Facility:[facility] Start: 10-10-2024 End: 10-11-2024 ambulatory Peggy Cedillo Facility:[facility] Start: 09-30-2024 End: 09-30-2024 Patient encounter procedure Seth Castro APRN.CNM Work Phone: OB/Gynecology Comment on above: Supervision of high risk in third trimester (Primary Dx); Anxiety and depression; Cervix, short (affecting ); 33 weeks gestation of Start: 09-30-2024 End: 09-30-2024 ambulatory SETH CASTRO Facility:[facility] Start: 09-29-2024 End: 09-29-2024 ambulatory Peggy Cardenas [facility] Physical Therapy Comment on above: Rib pain (Primary Dx ); 30 weeks gestation of ; Supervision of high risk in third trimester Start: 09-23-2024 End: 09-23-2024 ambulatory PEGGY CEDILLO Facility:[facility] Start: 09-23-2024 End: 09-23-2024 Patient encounter procedure Peggy Cedillo APRN.CNM Work Phone: OB/Gynecology Comment on above: Supervision of high risk in third trimester (Primary Dx); 32 weeks gestation of ; Cervix, short (affecting ); Threatened premature labor, antepartum; Anxiety and depression; Dysuria Start: 09-15-2024 End: 09-15-2024 ambulatory THOMPSON PEÑA Facility:[facility] Start: 09-15-2024 End: 09-15-2024 Patient encounter procedure Thompson Peña MD Work Phone: OB/Gynecology Comment on above: Nausea and vomiting in (Primary Dx); Cervix, short (affecting ); Supervision of high risk in third trimester; 31 weeks gestation of Start: 09-14-2024 End: 09-14-2024 Telephone encounter Peggy Cedillo APRN.CNEvelin Work Phone: OB/Gynecology Comment on above: OB Vomiting Start: 09-12-2024 End: 09-12-2024 Emergency department patient visit Darryl Galeano Facility:[facility] Start: 09-08-2024 End: 09-08-2024 ambulatory BELLE CARRILLO Facility:[facility] Start: 09-08-2024 End: 09-08-2024 Patient encounter procedure Belle Carrillo MD Work Phone: OB/Gynecology Comment on above: Supervision of high risk in third trimester (Primary Dx); Threatened premature labor, antepartum; Cervix, short (affecting ); 30 weeks gestation of ; Rib pain Start: 08-26-2024 End: 08-26-2024 Patient Outreach Paula Ramos RN Flight Surveyor Management Comment on above: Transition Of Care ( Discharged: [facility] contractions 08/25/24, 15 hours) Start: 08-25-2024 End: 08-25-2024 ambulatory KULDEEP KHAN Facility:[facility] Start: 08-25-2024 End: 08-25-2024 Nursing evaluation of patient and report Nurse Aerospace Physiological Technician [facility] Work Phone: OB/Gynecology Comment on above: Threatened premature labor, antepartum (Primary Dx) Start: 08-25-2024 End: 08-26-2024 Telephone encounter Alison Grimm MD Work Phone: OB/Gynecology Comment on above: Letter Start: 08-24-2024 End: 08-25-2024 Evaluation and management of inpatient DAMON BEAVER Facility:[facility] Start: 08-24-2024 End: 08-24-2024 Patient encounter procedure Suellne Cortes MD Work Phone: OB/Gynecology Comment on above: Supervision of high risk in second trimester (Primary Dx); 28 weeks gestation of ; Threatened premature labor, antepartum Start: 08-24-2024 End: 08-24-2024 ambulatory Heidi Vila RN NURSE WATER TANKER DRIVER Comment on above: Contractions Start: 08-21-2024 End: 08-22-2024 ambulatory Belle Carrillo Facility:[facility] Start: 08-03-2024 End: 08-04-2024 ambulatory Peggy Cedillo Facility:[facility] Start: 07-27-2024 End: 07-27-2024 ambulatory TOBY ROME Facility:[facility] Start: 07-27-2024 End: 07-27-2024 Patient encounter procedure Toby Rome HEAD SAWYER.HOG BUYER Work Phone: OB/Gynecology Comment on above: Supervision of high risk in second trimester (Primary Dx); 24 weeks gestation of ; Heartburn during in second trimester; Cervix, short (affecting ) Start: 07-13-2024 End: 07-13-2024 Patient encounter procedure Whi Tech 1 Volleyball Assembler [facility] Comment on above: Cervical shortening, second trimester (Primary Dx); 22 weeks gestation of Supervision of high risk in second trimester (Primary Dx); Heartburn during in second trimester; Cervical shortening, second trimester; Hyperemesis gravidarum; 22 weeks gestation of ; Cervix, short (affecting ) Start: 07-13-2024 End: 07-13-2024 ambulatory BELLE CARRILLO Facility:[facility] Start: 06-30-2024 End: 06-30-2024 ambulatory BELLE CARRILLO Facility:[facility] Start: 06-30-2024 End: 06-30-2024 ambulatory KATINA REDDY Facility:[facility] Start: 06-30-2024 End: 06-30-2024 Patient encounter procedure Belle Carrillo MD Work Phone: OB/Gynecology Comment on above: Supervision of high risk in second trimester (Primary Dx); Heartburn during in second trimester; 20 weeks gestation of ; Cervical shortening, second trimester Encounter for anatomic survey (Primary Dx); 20 weeks gestation of Start: 06-05-2024 End: 06-05-2024 ambulatory TOBY ROME Facility:[facility] Start: 06-05-2024 End: 06-05-2024 Patient encounter procedure Peggy Cedillo APRN.CNM Work Phone: OB/Gynecology Comment on above: Supervision of high risk in second trimester (Primary Dx); 16 weeks gestation of ; Hyperemesis gravidarum; Heartburn during in second trimester; Depression affecting in second trimester, antepartum; Anxiety during Start: 05-28-2024 End: 05-28-2024 Telephone encounter Seth Castro APRN.CNM Work Phone: OB/Gynecology Comment on above: Patient Update Start: 05-27-2024 End: 05-27-2024 Telephone encounter Miguel Dyer APRN.CNP Work Phone: [facility] Start: 05-26-2024 End: 05-26-2024 Emergency department patient visit [facility] Facility[facility] Start: 05-26-2024 End: 05-26-2024 Telephone encounter Belle Carrillo MD Work Phone: OB/Gynecology Comment on above: Patient Update Start: 05-25-2024 End: 05-25-2024 ambulatory [facility] Facility:[facility] Start: 05-25-2024 End: 05-25-2024 Office outpatient visit 15 minutes Franco Caal APRN.HOG BUYER Work Phone: [facility] Comment on above: Urinary frequency (P rimary Dx); Burning with urination Start: 05-22-2024 End: 05-22-2024 Patient encounter procedure Toby Rome APRN.HOG BUYER Work Phone: OB/Gynecology Comment on above: Encounter for superv ision of normal first in second trimester (Primary Dx); 14 weeks gestation of ; Depression affecting in second trimester, antepartum; Anxiety during ; Hyperemesis gravidarum Start: 05-22-2024 End: 05-22-2024 ambulatory Toby Rome APRN.CNP Work Phone: OB/Gynecology Comment on above: [facility] Start: 05-22-2024 End: 05-22-2024 E-mail encounter from caregiver Toby Rome APRN.CNP Work Phone: OB/Gynecology Start: 05-21-2024 End: 05-21-2024 Telephone encounter Toby Rome APRN.HOG BUYER Work Phone: OB/Gynecology Comment on above: Patient Update Start: 05-18-2024 End: 05-18-2024 Telephone encounter Toby Rome APRN.HOG BUYER Work Phone: OB/Gynecology Comment on above: Patient Update Start: 05-17-2024 End: 05-17-2024 Emergency department patient visit [facility] Start: 05-13-2024 End: 05-13-2024 Telephone encounter Toby Rome APRN.HOG BUYER Work Phone: OB/Gynecology Comment on above: Orders Start: 05-13-2024 End: 05-13-2024 ambulatory TOBY SHERIN Facility:[facility] Start: 05-13-2024 End: 05-13-2024 Patient encounter procedure Toby Latricia BAILEY Work Phone: OB/Gynecology Comment on above: Encounter for superv ision of normal first in second trimester (Primary Dx); 13 weeks gestation of ; Hyperemesis gravidarum; Encounter for screening for nuchal translucency Encounter for antena michael screening for malformation using ultrasound (Primary Dx); 13 weeks gestation of ; Encounter for (NT) nuchal translucency scan Start: 05-08-2024 End: 05-08-[facility] Start: 05-08-2024 End: 05-08-2024 Patient encounter procedure Tobyanneliese Zendejassherin [place].HOG BUYER Work Phone: OB/Gynecology Comment on above: Encounter for superv ision of normal first in first trimester (Primary Dx); 12 weeks gestation of ; with uncertain dates in first trimester; Anxiety during ; Hyperemesis gravidarum; Heartburn during in second trimester Start: 05-06-2024 End: 05-06-2024 Emergency department patient visit Kuldeep Khan Facility:[facility] Start: 05-05-2024 End: 05-05-2024 Telephone encounter Katina Reddy MD Work Phone: OB/Gynecology Comment on above: OB dizziness Start: 04-30-2024 End: 04-30-2024 Telephone encounter Seth Castro APRN.CNM Work Phone: OB/Gynecology Comment on above: Heartburn (/) Start: 04-17-2024 End: 04-17-2024 Office outpatient visit 15 minutes Franco Caal APRN.CNP Work Phone: [facility] Comment on above: Rash (Primary Dx) Start: 04-10-2024 End: 04-10-2024 ambulatory [facility] OB/Gynecology Start: 04-10-2024 End: 04-10-2024 Patient encounter procedure Whi Tech 1 Volleyball Assembler [facility] OB/Gynecology Start: 04-02-2024 Telephone encounter Katina dutta MD Work Phone: OB/Gynecology Comment on above: Appointment Start: 04-01-2024 End: 04-01-2024 Patient encounter procedure Kirby Sarmiento HEAD SAWYER.HOG BUYER Work Phone: [facility] Comment on above: URI, acute (Primary Dx) Start: 03-27-2024 End: 03-27-2024 Patient encounter procedure Toby Rome APRN.HOG BUYER Work Phone: OB/Gynecology Comment on above: Encounter for superv ision of normal first in first trimester (Primary Dx); 5 weeks gestation of ; with uncertain dates in first trimester; Family history of deafness; Nausea and vomiting during ; Heartburn during in first trimester; Anxiety during ; Attention deficit hyperactivity disorder (ADHD), combined type Start: 03-09-2024 End: 03-09-2024 Office outpatient visit 15 minutes Franco Caal APRN.HOG BUYER Work Phone: [facility] Comment on above: Late menses (Primary Dx) Start: 01-26-2024 End: 01-26-2024 Patient encounter procedure Franco Caal APRN.HOG BUYER Work Phone: [facility] Comment on above: Procedure not kayley d out (Primary Dx) Start: 10-07-2023 End: 10-07-2023 Patient encounter procedure Toby Rome APRN.HOG BUYER Work Phone: OB/Gynecology Comment on above: Encounter for Nexpla non removal (Primary Dx) Start: 09-19-2023 End: 09-19-2023 Patient encounter procedure Miguel Dyer APRN.HOG BUYER Work Phone: [facility] Comment on above: Sore throat (Primary Dx); Flu-like symptoms; Influenza A Start: 06-21-2023 End: 06-21-2023 Patient encounter procedure Kuldeep Khan MD Work Phone: [facility] Comment on above: Sleep initiation dis order (Primary Dx); Bilateral hand pain Start: 03-06-2023 Telephone encounter George SHAW Work Phone: [facility] Comment on above: Results Start: 03-04-2023 End: 03-04-2023 Patient encounter procedure Miguel CifuentesChris HEAD SAWYER.HOG BUYER Work Phone: [facility] Comment on above: Urinary frequency (P rimary Dx) Start: 11-29-2022 Telephone encounter Frandy Mae MD Work Phone: [facility] Comment on above: Results (Urine Cx) Start: 11-27-2022 End: 11-27-2022 Office outpatient visit 15 minutes Franco Caal HEAD SAWYER.HOG BUYER Work Phone: [facility] Comment on above: Urinary frequency (P rimary Dx) Procedures Date Procedure Procedure Detail Performing Clinician Start: 04-29-2025 Urnls dip stick/tabl et reagent auto microscopy Dr. Halie Butts DO Work Phone: Start: 04-29-[address] Halie Butts DO Work Phone: Start: 04-29-2025 Us uterus l imited 1/> fetuses Ene King HEAD SAWYER.HOG BUYER Work Phone: Start: 04-16-2025 Us uterus l imited 1/> fetuses Toby Rome HEAD SAWYER.HOG BUYER Work Phone: Start: 04-08-2025 Urnls dip stick/tabl et reagent auto microscopy Dr. Halie Butts DO Work Phone: Start: 04-08-[address]inal [address]etr ic ultrasonography Dr. Halie Butts DO Work Phone: Start: 04-02-2025 UA DIP,URINE HCG (POC) Paradise Diaz APRN.HOG BUYER Work Phone: Start: 01-12-2025 UA DIP,URINE HCG (POC) [facility] Provider Start: 10-22-2024 Urnls dip stick/tabl et rgnt non-auto w/o micrscp Alison Grimm MD Work Phone: Start: 10-15-2024 Urnls dip stick/tabl et rgnt non-auto w/o micrscp Alison Grimm MD Work Phone: Start: 09-23-2024 Urnls dip stick/tabl et rgnt auto w/o microscopy Peggy Cedillo APRN.CNM Work Phone: Start: 09-15-2024 Urnls dip stick/tabl et rgnt non-auto w/o micrscp Thompson Peña MD Work Phone: Start: 07-13-2024 Us preg uterus after 1st trimest 08/19 gestation Belle Carrillo MD Work Phone: Start: 06-30-2024 Us preg uterus after 1st trimest 08/19 gestation Katina Reddy MD Work Phone: Start: 05-25-2024 Urnls dip stick/tabl et rgnt auto w/o microscopy Peggy Remy HEAD SAWYER.HOG BUYER Work Phone: Start: 05-17-2024 Urinalysis, reagent strip without microscopy Chyna Magaña HEAD SAWYER-HOG BUYER Work Phone: Start: 05-17-2024 Complete blood count with white cell differential, automated Chyna Magaña HEAD SAWYER-HOG BUYER Work Phone: Start: 05-17-2024 Creatinine blood Chyna Magaña HEAD SAWYER-HOG BUYER Work Phone: Start: 05-13-2024 Antibody screen TOBY SHEIKH Comment on above: Order Comment: Speci men Type: BLOOD SPECIMENOrdering Facility: [facility] Address: [address] [place] [address] Performed By: #### T SPN ####CC [facility] BLOOD BANKCLIA [id number] [place] [id number] [place] Start: 05-13-2024 Us nuchal mitchell slucency 1st gestation Toby Rome HEAD SAWYER.HOG BUYER Work Phone: Start: 04-10-2024 Us pelvic nonobstetr ic real-time image complete Toyb Zendejassherin [place].HOG BUYER Work Phone: Start: 03-27-2024 Us uterus l imited / fetuses Toby Zendejassherin [place].HOG BUYER Work Phone: Start: 03-09-2024 UA DIP,URINE HCG (POC) [facility] Provider Start: 09-19-2023 INFLUENZA A&B MOLECU LAR (POC) Miguel Dyer HEAD SAWYER.HOG BUYER Work Phone: Start: 09-19-2023 STREP A MOLECULAR (POC) Jamaal Mortensen HEAD SAWYER.HOG BUYER Work Phone: Start: 03-04-2023 Urnls dip stick/tabl et rgnt auto w/o microscopy Nicci Szymanski PA-C Work Phone: Start: 11-27-2022 Urnls dip stick/tabl et rgnt auto w/o microscopy Miguel Dyer HEAD SAW[employer]ER.[employer]ER Work Phone: Start: 07-04-2022 Adult depression scr eening assessment Franco Caal HEAD SAW[employer]ER.[employer]ER Work Phone: Plan of Treatment Date Care Activity Detail Author Start: 05-14-2026 Tetanus vaccination TETANUS [facility] Start: 05-14-2026 [facility] Start: 04-29-2026 GC (Gonorrhea) Screening (18-24) GC (Gonorrhea) Screening (18-24) [facility] Start: 04-29-2026 Screening for Chlamydia trachomatis Chlamydia Screening (18-24) [facility] Start: 09-08-2025 Covid-19 Vaccine (2023- season) Covid-19 Vaccine ( season) [facility] Comment on above: Postponed from 04/19/2024 (Declined at t his time) Start: 08-25-2025 GC (Gonorrhea) Screening (18-24) GC (Gonorrhea) Screening (18-24) [facility] Start: 08-25-2025 Screening for Chlamydia trachomatis Chlamydia Screening (18-24) [facility] Start: 07-16-2025 End: 07-16-2025 Patient encounter procedure 07/16/2025 4:40 PM EST Office Visit [facility] [place] [address] [place] [address] Diony Ferreira MD [address] [place] [address] 3 month follow up [facility] [place] Comment on above: 3 month follow up Start: 06-24-2025 End: 06-24-2025 Patient encounter procedure Maternal Fet al Medicine Comment on above: anatomy anatomy/OB Start: 05-28-2025 End: 05-28-2025 Patient encounter procedure 05/28/2025 3:40 PM EDT Routine Office Visit OB/Gynecology [address] [place] [address] Suellen Cortes MD [address] [place] [address] OB OB/Gynecology Comment on above: OB Start: 05-27-2025 End: 05-27-2025 Patient encounter procedure 05/27/2025 3:00 PM EDT Routine Office Visit Maternal Medicine [address] [place] [address] nuchal Maternal Medicine Comment on above: nuchal Start: 05-12-2025 End: 05-12-2025 Patient encounter procedure Radiology Comment on above: Chronic midline thoracic back pain [M54. 6, G89.29] Start: 04-29-2025 [facility] Start: 04-29-2025 [facility] Start: 04-29-2025 End: 04-29-2025 Patient encounter procedure OB/Gynecolog y Comment on above: NEW OB LMP 02/09/25 NEW OB LMP 02/13/25 confirm viability, h ad pocus 04/16 Start: 04-29-2025 End: 07-29-2025 ANEMIA REFLEX PANEL ANEMIA REFLEX PANEL Lab Routine with uncertain dates in first trimester (HCC) Expected: 04/29/2025, Expires: 07/29/2025 [facility] Work Phone: Comment on above: Expected: 04/29/2025, Expires: Start: 04-29-2025 Bacteria identified in Urine by Culture [facility] Start: 04-29-2025 End: 07-29-2025 Chromosome 21 trisomy [Presence] in Blood or Tissue by Cytogenetics [id number] PLUS Lab Routine 7 weeks gestation of (HCC) Expected: 04/29/2025, Expires: 07/29/2025 [facility] Comment on above: Expected: 04/29/2025, Expires: Start: 04-29-2025 End: 07-29-2025 Hemoglobin A1c in Blood HEMOGLOBIN A1C Lab Routine with uncertain dates in first trimester (HCC) Expected: 04/29/2025, Expires: 07/29/2025 [facility] Comment on above: Expected: 04/29/2025, Expires: Start: 04-29-2025 End: 07-29-2025 Hepatitis B virus surface Ag [Presence] in Serum HEPATITIS B SURFACE ANTIGEN Lab Routine with uncertain dates in first trimester (HCC) Expected: 04/29/2025, Expires: 07/29/2025 [facility] Comment on above: Expected: 04/29/2025, Expires: Start: 04-29-2025 End: 07-29-2025 Hepatitis C virus Ab [Presence] in Serum HEPATITIS C ANTIBODY IA WITH CONFIRMATION Lab Routine with uncertain dates in first trimester (HCC) Expected: 04/29/2025, Expires: 07/29/2025 [facility] Comment on above: Expected: 04/29/2025, Expires: Start: 04-29-2025 End: 07-29-2025 HIV 1+2 Ab [Presence] in Serum or Plasma by Immunoassay HIV 1/2 COMBO WITH REFLEX TO DIFFERENTIATION Lab Routine with uncertain dates in first trimester (HCC) Expected: 04/29/2025, Expires: 07/29/2025 [facility] Comment on above: Expected: 04/29/2025, Expires: Start: 04-29-2025 End: 04-29-2026 [facility] Comment on above: Expected: 04/29/2025, Expires: 6 Start: 04-29-2025 End: 07-29-2025 RUBELLA IGG ANTIBODY RUBELLA IGG ANTIBODY Lab Routine with uncertain dates in first trimester (HCC) Expected: 04/29/2025, Expires: 07/29/2025 [facility] Comment on above: Expected: 04/29/2025, Expires: 5 Start: 04-29-2025 End: 07-29-2025 SYPHILIS TREPONEMAL W/REFLEX SYPHILIS TREPONEMAL W/REFLEX Lab Routine Screen for STD (sexually transmitted disease) Expected: 04/29/2025, Expires: 07/29/2025 [facility] Comment on above: Expected: 04/29/2025, Expires: Start: 04-29-2025 End: 07-29-2025 TYPE + SCREEN TYPE + SCREEN Blood Bank Routine with uncertain dates in first trimester (HCC) Expected: 04/29/2025, Expires: 07/29/2025 [facility] Comment on above: Expected: 04/29/2025, Expires: Start: 04-19-2025 Influenza vaccination [facility] Start: 04-14-2025 End: 04-14-2025 Patient encounter procedure [facility] [place] Comment on above: 5 week follow up Start: 04-14-2025 End: 04-14-2025 ambulatory 04/14/2025 3:15 PM EDT Results Only [facility] [address] [place] [address] [facility] Start: 04-08-2025 [facility] Start: 04-08-2025 End: 07-08-2025 Choriogonadotropin.beta subunit [Units/volume] in Serum or Plasma HCG QUANTITATIVE Lab Routine Pelvic pain in (HCC) Expected: 04/08/2025, Expires: 07/08/2025 [facility] Work Phone: Comment on above: Expected: 04/08/2025, Expires: Start: 03-27-2025 GC (Gonorrhea) Screening (18-24) GC (Gonorrhea) Screening (18-24) [facility] Start: 03-27-2025 Screening for Chlamydia trachomatis Chlamydia Screening (18-24) [facility] Start: 03-03-2025 End: 03-03-2025 Patient encounter procedure Radiology Comment on above: Chronic midline thoracic back pain [M54. 6, G89.29] Start: 03-03-2025 End: 06-02-2025 Choriogonadotropin ( test) [Presence] in Urine HCG, QUALITATIVE, URINE Lab Routine Encounter for test, result unknown Expected: 03/03/2025, Expires: 06/02/2025 [facility] Work Phone: Comment on above: Expected: 03/03/2025, Expires: Start: 02-25-2025 End: 02-25-2025 Patient encounter procedure 02/25/2025 5:00 PM EDT Office Visit [facility] [address] [place], [place] [address] Diony Ferreira MD [address] [place] [address] [phone] Transfer from peds OK'd per [facility] Comment on above: Transfer from peds OK'd per [facility] Start: 02-25-2025 End: 05-27-2025 25-hydroxyvitamin D3 [Mass/volume] in Serum or Plasma VITAMIN D 25 HYDROXY Lab Routine mood disorder (HCC) Expected: 02/25/2025, Expires: 05/27/2025 [facility] Comment on above: Expected: 02/25/2025, Expires: Start: 02-25-2025 End: 05-27-2025 CBC W Auto Differential panel - Blood COMPLETE BLOOD COUNT AND DIFFERENTIAL Lab Routine mood disorder (HCC) Expected: 02/25/2025, Expires: 05/27/2025 [facility] Work Phone: Comment on above: Expected: 02/25/2025, Expires: Start: 02-25-2025 End: 05-27-2025 Comprehensive metabolic 2000 panel - Serum or Plasma COMPREHENSIVE METABOLIC PANEL Lab Routine mood disorder (HCC) Expected: 02/25/2025, Expires: 05/27/2025 [facility] Comment on above: Expected: 02/25/2025, Expires: Start: 02-25-2025 End: 05-27-2025 Ferritin [Mass/volume] in Serum or Plasma FERRITIN Lab Routine mood disorder (HCC) Expected: 02/25/2025, Expires: 05/27/2025 [facility] Comment on above: Expected: 02/25/2025, Expires: Start: 02-25-2025 End: 05-27-2025 Iron and Iron binding capacity panel - Serum or Plasma IRON AND TIBC Lab Routine mood disorder (HCC) Expected: 02/25/2025, Expires: 05/27/2025 [facility] Comment on above: Expected: 02/25/2025, Expires: Start: 02-25-2025 End: 05-27-2025 TSH W/REFLEX FT4 TSH W/REFLEX FT4 Lab Routine mood disorder (HCC) Expected: 02/25/2025, Expires: 05/27/2025 [facility] Comment on above: Expected: 02/25/2025, Expires: Start: 02-15-2025 [facility]: Postponed from 04/19/2024 (Declined at t his time) Start: 12-30-2024 End: 12-30-2024 Patient encounter procedure 12/30/2024 4:00 PM EDT Office Visit OB/Gynecology [address] [place] [address] Toby Rome APRN.HOG BU[employer]ER [address] [place] [address] 1 month follow up OB/Gynecology Comment on above: 1 month follow up Start: 11-26-2024 End: 11-26-2024 Patient encounter procedure 11/26/2024 2:30 PM EDT Office Visit OB/Gynecology [address] [place] [id number] Toby Rome APRN.HOG BUYER [address] [place] [address] 6w Post OB/Gynecology Comment on above: 6w Post Start: 11-06-2024 End: 11-06-2024 Patient encounter procedure 11/06/2024 3:40 PM EDT Routine Office Visit OB/Gynecology [address] [place] [address] Alison Grimm MD [address] [place] [address] OB OB/Gynecology Comment on above: OB Start: 11-05-2024 End: 11-05-2024 Patient encounter procedure 11/05/2024 3:15 PM EDT Routine Office Visit OB/Gynecology [address] [place] [address] Seth Castro APRN.CNM [address] [place] [address] OB OB/Gynecology Comment on above: OB Start: 10-29-2024 End: 10-29-2024 Patient encounter procedure OB/Gynecolog y Comment on above: OB PP Start: 10-27-2024 End: 10-27-2024 ambulatory 10/27/2024 5:15 PM EDT OT/PT/Speech Visit [facility] Physical Therapy [address] [place] [address] Peggy Cardenas, PT Z3A.30 (ICD-10-CM) - 30 weeks gestation of [facility] Comment on above: Z3A.30 (ICD-10-CM) - 30 weeks gestation of Start: 10-22-2024 End: 10-22-2024 Patient encounter procedure 10/22/2024 1:50 PM EST Routine Office Visit OB/Gynecology [address] [place] [address] Alison Grimm MD [address] [place] [address] OB OB/Gynecology Comment on above: OB Start: 10-20-2024 End: 10-20-2024 ambulatory 10/20/2024 5:15 PM EST OT/PT/Speech Visit [facility] [address] [place] [address] O'Peggy Ramey, PT Z3A.30 (ICD-10-CM) - 30 weeks gestation of [facility] Therapy Comment on above: Z3A.30 (ICD-10-CM) - 30 weeks gestation of Start: 10-15-2024 End: 10-15-2024 Patient encounter procedure OB/Gynecolog y Comment on above: OB Routine OB Routine - recheck anemia reflex panel per KJ (anemic at [facility]) Start: 10-13-2024 End: 10-13-2024 ambulatory 10/13/2024 5:15 PM EST OT/PT/Speech Visit [facility] [address] [place] [address] O'TanvirDebbiePeggy, PT Z3A.30 (ICD-10-CM) - 30 weeks gestation of [facility] Therapy Comment on above: Z3A.30 (ICD-10-CM) - 30 weeks gestation of Start: 10-06-2024 End: 10-06-2024 ambulatory 10/06/2024 5:15 PM EST OT/PT/Speech Visit [facility] Therapy [address] [place] [address] O'TanvirPeggy, PT Z3A.30 (ICD-10-CM) - 30 weeks gestation of [facility] Physical Therapy Comment on above: Z3A.30 (ICD-10-CM) - 30 weeks gestation of Start: 09-30-2024 End: 09-30-2024 Patient encounter procedure 09/30/2024 4:30 PM EST Routine Office Visit OB/Gynecology [address] [place] [address] Seth Castro APRN.[facility] [address] [place] [address] OB OB/Gynecology Comment on above: OB Start: 09-29-2024 End: 09-29-2024 ambulatory 09/29/2024 3:45 PM EST OT/PT/Speech Visit [place] [facility] [address] [place] [address] Peggy Cardenas, PT 30 weeks gestation of [Z3A.30]; Supervision of high risk in third trimester [O09.93]; Rib pain [R07.81] [place] [facility] Comment on above: 30 weeks gestation of [Z3A.30] ; Supervision of high risk in third trimester [O09.93]; Rib pain [R07.81] Start: 09-23-2024 End: 09-23-2024 Patient encounter procedure 09/23/2024 3:15 PM EST Routine Office Visit OB/Gynecology [address] [place] [address] Seth Castro APRN.CN [address] [place] [address] ob OB/Gynecology Comment on above: ob Start: 09-15-2024 End: 09-15-2024 Patient encounter procedure 09/15/2024 3:40 PM EST Routine Office Visit OB/Gynecology [address] [place] [address] Thompson Gonzalez MD [address] [place] [address] OB-N/V follow up OB/Gynecology Comment on above: OB-N/V follow up Start: 09-08-2024 End: 09-08-2024 Patient encounter procedure 09/08/2024 3:10 PM EST Routine Office Visit OB/Gynecology [address] [place] [address] Belle Carrillo MD [address] [place] [address] OB Routine OB/Gynecology Comment on above: OB Routine Start: 08-25-2024 End: 08-25-2024 Nursing evaluation of patient and report 08/25/2024 4:15 PM EST Nurse Visit OB/Gynecology [address] [place] [address] Wstr, Nurse [employer] Physiological Technician [facility] [address] [place] [address] 2nd Betamethasone OB/Gynecology Comment on above: 2nd Betamethasone Start: 08-24-2024 End: 08-24-2024 Patient encounter procedure 08/24/2024 3:50 PM EST Routine Office Visit OB/Gynecology [address] [place] [address] Suellen Cortes MD [address] [place] [address] OB Routine OB/Gynecology Comment on above: OB Routine Start: 08-24-2024 End: 08-24-2024 ambulatory 08/24/2024 3:30 PM EST Results Only [facility] [address] [place] [address] Glucose Test and LABS [facility] Comment on above: Glucose Test and LABS Start: 07-27-2024 End: 07-27-2024 Patient encounter procedure 07/27/2024 3:45 PM EST Routine Office Visit OB/Gynecology [address] [place] [address] Toby Rome APRN.[employer] [address] [place] [address] OB Routine OB/Gynecology Comment on above: OB Routine Start: 07-27-2024 End: 10-26-2024 ANEMIA REFLEX PANEL ANEMIA REFLEX PANEL Lab Routine Supervision of high risk in second trimester 24 weeks gestation of Expected: 07/27/2024, Expires: 10/26/2024 [facility] Comment on above: Expected: 07/27/2024, Expires: Start: 07-27-2024 End: 10-26-2024 GESTATIONAL GLUCOSE SCREEN, 1-HOUR, 50 GRAM, NON-FASTING GESTATIONAL GLUCOSE SCREEN, 1-HOUR, 50 GRAM, NON-FASTING Lab Routine Supervision of high risk in second trimester 24 weeks gestation of Expected: 07/27/2024, Expires: 10/26/2024 [facility] Work Phone: Comment on above: Expected: 07/27/2024, Expires: Start: 07-27-2024 End: 10-26-2024 SYPHILIS TREPONEMAL W/REFLEX SYPHILIS TREPONEMAL W/REFLEX Lab Routine Supervision of high risk in second trimester 24 weeks gestation of Expected: 07/27/2024, Expires: 10/26/2024 [facility] Comment on above: Expected: 07/27/2024, Expires: Start: 07-20-2024 End: 07-20-2024 Patient encounter procedure Psychiatry Comment on above: Depression affecting in second trimester, antepartum [O99.342, F32.A] [facility] Depression a ffecting in second trimester, antepartum [O99.342, F32.A] #2 [facility] Depressio n affecting in second trimester, antepartum [O99.342, F32.A] Start: 07-13-2024 End: 07-13-2024 Patient encounter procedure 07/13/2024 2:30 PM EST Routine Office Visit Maternal Medicine [address] [place] [address] Cervical Length Maternal Medicine Comment on above: Cervical Length Start: 06-30-2024 End: 06-30-2024 Patient encounter procedure Maternal Fet al Medicine Comment on above: Anatomy Anatomy/OB Start: 06-30-2024 End: 06-30-2025 OBSTETRIC ULTRASOUND [facility] OBSTETRIC ULTRASOUND [facility] Anc Imaging Routine Cervical shortening, second trimester Expected: 06/30/2024, Expires: 06/30/2025 [facility] Work Phone: Comment on above: Expected: 06/30/2024, Expires: 5 Start: 06-05-2024 End: 06-05-2024 Patient encounter procedure 06/05/2024 3:15 PM EDT Routine Office Visit OB/Gynecology [address] [place] [address] Peggy Cedillo APRN.CNM [address] [place] [address] OB Routine OB/Gynecology Comment on above: OB Routine Start: 05-27-2024 End: 07-22-2024 SEQUENTIAL SCN SECOND TRIM SEQUENTIAL SCN SECOND TRIM Lab Routine Encounter for supervision of normal first in second trimester 13 weeks gestation of Encounter for screening for nuchal translucency Expected: 05/27/2024, Expires: 07/22/2024 [facility] Comment on above: Expected: 05/27/2024, Expires: 4 Start: 05-22-2024 End: 05-22-2024 Patient encounter procedure 05/22/2024 3:15 PM EDT Routine Office Visit OB/Gynecology [address] [address] Toby Rome APRN.HOG BUYER [address] [place] [address] OB - depression OB/Gynecology Comment on above: OB - depression Start: 05-13-2024 End: 08-12-2024 SEQUENTIAL SCN FIRST TRIMESTER [facility] Work Phone: Comment on above: Expected: 05/13/2024, Expires: 4 Start: 05-13-2024 End: 05-13-2024 Patient encounter procedure Maternal Fet al Medicine Comment on above: Nuchal US OB Routine Start: 05-08-2024 End: 05-08-2024 Patient encounter procedure 05/08/2024 3:45 PM EDT Routine Office Visit OB/Gynecology [address] [place] [address] Toby Rome APRN.HOG BUYER [address] [place] [address] OB OB/Gynecology Comment on above: OB Start: 05-08-2024 End: 05-08-2025 NUCHAL TRANSLUCENCY [facility]I NUCHAL TRANSLUCENCY [facility] Anc Imaging Routine Encounter for supervision of normal first in first trimester 12 weeks gestation of Expected: 05/08/2024, Expires: 05/08/2025 [facility] Work Phone: Comment on above: Expected: 05/08/2024, Expires: Start: 05-01-2024 End: 05-01-2024 Patient encounter procedure 05/01/2024 4:30 PM EDT Routine Office Visit OB/Gynecology [address] [place] [address] Peggy Cedillo APRN.CNM [address] [place] [address] [facility] OB OB/Gynecology Comment on above: [facility] OB Start: 04-24-2024 End: 04-24-2024 Patient encounter procedure 04/24/2024 2:30 PM EDT Routine Office Visit OB/Gynecology [address] [place] [address] Peggy Cedillo APRN.CNM [address] [place] [place] [address] [facility] OB OB/Gynecology Comment on above: [facility] OB Start: 04-19-2024 Covid-19 Vaccine ( season) Covid-19 Vaccine ( season) [facility] Start: 04-19-2024 Covid-19 Vaccine ( season) Covid-19 Vaccine ( season) [facility] Start: 04-19-2024 Influenza vaccination [facility] Start: 04-10-2024 End: 04-10-2024 ambulatory 04/10/2024 2:00 PM EDT Procedure OB/Gynecology [address] [place] [place] [address] dating ultrasound OB/Gynecology Comment on above: dating ultrasound Start: 04-03-2024 End: 04-03-2024 Patient encounter procedure 04/03/2024 1:00 PM EDT Routine Office Visit OB/Gynecology [address] [place] [address] Katina Reddy MD [address] [place] [address] F/U OB/ bed side utrla sound OB/Gynecology Comment on above: F/U OB/ bed side utrla sound Start: 04-02-2024 End: 04-02-2025 OBSTETRIC ULTRASOUND [facility] OBSTETRIC ULTRASOUND [facility] Anc Imaging Routine Encounter for test, result positive Expected: 04/02/2024, Expires: 04/02/2025 [facility] Work Phone: Comment on above: Expected: 04/02/2024, Expires: Start: 03-27-2024 End: 06-26-2024 CBC panel - Blood by Automated count COMPLETE BLOOD COUNT Lab Routine 5 weeks gestation of with uncertain dates in first trimester Expected: 03/27/2024, Expires: 06/26/2024 [facility] Work Phone: Comment on above: Expected: 03/27/2024, Expires: Start: 03-27-2024 End: 06-26-2024 Hemoglobin A1c in Blood HEMOGLOBIN A1C Lab Routine 5 weeks gestation of with uncertain dates in first trimester Expected: 03/27/2024, Expires: 06/26/2024 [facility] Comment on above: Expected: 03/27/2024, Expires: Start: 03-27-2024 End: 06-26-2024 HEMOGLOBIN EVALUATION CASCADE HEMOGLOBIN EVALUATION CASCADE Lab Routine 5 weeks gestation of with uncertain dates in first trimester Expected: 03/27/2024, Expires: 06/26/2024 [facility] Comment on above: Expected: 03/27/2024, Expires: Start: 03-27-2024 End: 06-26-2024 Hepatitis B virus surface Ag [Presence] in Serum HEPATITIS B SURFACE ANTIGEN Lab Routine 5 weeks gestation of with uncertain dates in first trimester Expected: 03/27/2024, Expires: 06/26/2024 [facility] Comment on above: Expected: 03/27/2024, Expires: Start: 03-27-2024 End: 06-26-2024 Hepatitis C virus Ab [Presence] in Serum HEPATITIS C ANTIBODY IA WITH CONFIRMATION Lab Routine 5 weeks gestation of with uncertain dates in first trimester Expected: 03/27/2024, Expires: 06/26/2024 [facility] Comment on above: Expected: 03/27/2024, Expires: Start: 03-27-2024 End: 06-26-2024 HIV 1+2 Ab [Presence] in Serum or Plasma by Immunoassay HIV 1/2 COMBO WITH REFLEX TO DIFFERENTIATION Lab Routine 5 weeks gestation of with uncertain dates in first trimester Expected: 03/27/2024, Expires: 06/26/2024 [facility] Comment on above: Expected: 03/27/2024, Expires: Start: 03-27-2024 End: 06-26-2024 RUBELLA IGG ANTIBODY RUBELLA IGG ANTIBODY Lab Routine 5 weeks gestation of with uncertain dates in first trimester Expected: 03/27/2024, Expires: 06/26/2024 [facility] Comment on above: Expected: 03/27/2024, Expires: Start: 03-27-2024 End: 06-26-2024 SYPHILIS TOTAL W/REFLEX SYPHILIS TOTAL W/REFLEX Lab Routine 5 weeks gestation of with uncertain dates in first trimester Expected: 03/27/2024, Expires: 06/26/2024 [facility] Comment on above: Expected: 03/27/2024, Expires: Start: 03-27-2024 End: 06-26-2024 TYPE + SCREEN TYPE + SCREEN Blood Bank Routine 5 weeks gestation of with uncertain dates in first trimester Expected: 03/27/2024, Expires: 06/26/2024 [facility] Comment on above: Expected: 03/27/2024, Expires: 4 Start: 03-27-2024 End: 03-27-2025 US Pelvis PELVIC US [facility] Anc Imaging Routine with uncertain dates in first trimester Expected: 03/27/2024, Expires: 03/27/2025 [facility] Comment on above: Expected: 03/27/2024, Expires: 5 Start: 03-27-2024 End: 03-27-2024 Patient encounter procedure 03/27/2024 11:00 AM EDT Initial Office Visit OB/Gynecology [address] [place], [place] [id number] Toby Rome APRN.HOG BUYER [address] [place], [place] [id number] new ob OB/Gynecology Comment on above: new ob Start: 08-19-2023 Behavioral Health Screening Behavioral Health Screening [facility] Start: 08-19-2023 Depression Assessment Depression Assessment [facility] Start: 07-04-2023 Adult depression screening assessment DEPRESSION SCREENING [facility] Start: 04-19-2023 Covid-19 Vaccine ( season) Covid-19 Vaccine ( season) [facility] Start: 04-19-2023 Influenza vaccination [facility] Start: 2023 Anxiety Screening Anxiety Screening [facility] Start: 2023 CHLAMYDIA SCREENING (18) CHLAMYDIA SCREENING (18-) [facility] Start: 2023 Depression Screening Depression Screening [facility] Start: 2023 GC (GONORRHEA) SCREENING () GC (GONORRHEA) SCREENING () [facility] Start: 2023 HEPATITIS C SCREENING HEPATITIS C SCREENING [facility] Start: 2023 Hepatitis C screening Hepatitis C Screening [facility] Start: 2023 HIV SCREENING HIV SCREENING [facility] Start: 2023 HIV screening HIV Screening [facility] Start: 2023 Screening for Chlamydia trachomatis Chlamydia Screening (18-24) [facility] Start: 08-19-2022 DEPRESSION ASSESSMENT DEPRESSION ASSESSMENT [facility] Start: 2021 Meningococcal B Vaccine (1 of 2 - Standard) Meningococcal B Vaccine (1 of 2 - Standard) [facility] Start: 2021 Meningococcal B Vaccine: Consider Based On Risk (1 of 2 - Patient Seeks Protection) Meningococcal B Vaccine: Consider Based On Risk (1 of 2 - Patient Seeks Protection) [facility] Start: 2021 MENINGOCOCCAL B: Consider based on risk (1 of 2 - Patient Seeks Protection) MENINGOCOCCAL B: Consider based on risk (1 of 2 - Patient Seeks Protection) [facility] Start: 2021 Screening for Chlamydia trachomatis CHLAMYDIA SCREEN [facility] Start: 02-10-2020 CHLAMYDIA SCREENING (<18) CHLAMYDIA SCREENING (<18) [facility] Start: 02-10-2020 GC (GONORRHEA) SCREENING (<18) GC (GONORRHEA) SCREENING (<18) [facility] Start: 02-10-2020 HIV screening HIV SCREENING DISCUSSION [facility] Start: 2019 PEDS TO ADULT TRANSITION ANNUAL ASSESSMENT PEDS TO ADULT TRANSITION ANNUAL ASSESSMENT [facility] Start: 2015 MENINGOCOCCAL B: Consider based on risk (1 of 2 - Risk Bexsero 2-dose series) MENINGOCOCCAL B: Consider based on risk (1 of 2 - Risk Bexsero 2-dose series) [facility] Start: 2005 COVID-19 VACCINE (#1) COVID-19 VACCINE (#1) [facility] Start: 2005 Hepatitis C screening HEPATITIS C VIRUS SCREENING [facility] Start: 2005 Screening for Chlamydia trachomatis GONORRHEA SCREEN [facility] Bacteria identified in Urine by Culture URINE CULTURE Microbiology Routine Urinary frequency 11/27/2022 7:42 PM EDT [facility] Work Phone: Bacteria identified in Urine by Culture URINE CULTURE Microbiology Routine Urinary frequency 03/04/2023 6:44 PM EDT [facility] Work Phone: Bacteria identified in Urine by Culture URINE CULTURE Microbiology Routine 5 weeks gestation of with uncertain dates in first trimester 03/27/2024 11:41 AM EDT [facility] Bacteria identified in Urine by Culture URINE CULTURE Microbiology Routine Urinary frequency Burning with urination Ordered: 05/25/2024 [facility] Work Phone: Comment on above: Ordered: 05/25/2024 Bacteria identified in Urine by Culture BACTERIAL CULTURE, URINE Microbiology Routine Dysuria 09/23/2024 4:41 PM [facility] Work Phone: Chlamydia trachomatis+Neisseria gonorrhoeae DNA [Presence] in Unspecified specimen by VIRIDIANA with probe detection GONORRHEA/CHLAMYDIA NAAT Lab Routine 5 weeks gestation of with uncertain dates in first trimester 03/27/2024 11:41 AM T [facility] Chlamydia trachomatis+Neisseria gonorrhoeae DNA [Presence] in Unspecified specimen by VIRIDIANA with probe detection GONORRHEA/CHLAMYDIA NAAT Lab Routine with uncertain dates in first trimester ([facility]) 04/29/2025 4:07 PM T [facility] End: 05-13-2026 MR Lumbar spine WO and W contrast IV MRI LUMBAR SPINE WO/W IVCON Radiology Routine Chronic midline low back pain, unspecified whether sciatica present 1 Occurrences starting 04/13/2025 until 05/13/2026 [facility] Comment on above: 1 Occurrences starting 04/13/2025 until 05/13/2026 End: 03-27-2026 MR Lumbar spine WO contrast MRI LUMBAR SPINE WO IVCON Radiology Routine Chronic midline thoracic back pain 1 Occurrences starting 02/25/2025 until 03/27/2026 [facility] Comment on above: 1 Occurrences starting 02/25/2025 until 03/27/2026 End: 05-13-2026 MR Thoracic spine WO and W contrast IV MRI THORACIC SPINE WO/W IVCON Radiology Routine Chronic midline low back pain, unspecified whether sciatica present 1 Occurrences starting 04/13/2025 until 05/13/2026 [facility] Work Phone: Comment on above: 1 Occurrences starting 04/13/2025 until 05/13/2026 End: 03-27-2026 MR Thoracic spine WO contrast MRI THORACIC SPINE WO IVCON Radiology Routine Chronic midline thoracic back pain 1 Occurrences starting 02/25/2025 until 03/27/2026 [facility] Comment on above: 1 Occurrences starting 02/25/2025 until 03/27/2026 NEXPLANON REMOVAL NEXPLANON ARSLAN MARILYN Procedures Routine Encounter for Nexplanon removal Ordered: 08/30/2023 [facility] Work Phone: Comment on above: Ordered: 08/30/2023 Patient Education [facility] Work Phone: PT ED SLEEP PT ED SLEEP Othe r 04/14/2025 [facility] Work Phone: ROUTINE, GR OUP B STREP PCR ROUTINE, GROUP B STREP PCR Microbiology Routine 28 weeks gestation of Supervision of high risk in second trimester 08/24/2024 4:03 PM EST [facility] Work Phone: SARS-CoV-2 (COVID-19 ) RNA [Presence] in Respiratory specimen by VIRIDIANA with probe detection COVID NAAT, UPPER RESPIRATORY, ROUTINE Microbiology Routine Flu-like symptoms Ordered: 09/19/2023 [facility] Work Phone: Comment on above: Ordered: 09/19/2023 SARS-CoV-2 (COVID-19 ) RNA [Presence] in Respiratory specimen by VIRIDIANA with probe detection COVID NAAT, UPPER RESPIRATORY, ROUTINE Microbiology Routine URI, acute Ordered: 04/01/2024 [facility] Work Phone: Comment on above: Ordered: 04/01/2024 TRICHOMONAS VAGINALIS NAAT TRICH OMONAS VAGINALIS NAAT Lab Routine Screen for STD (sexually transmitted disease) 04/29/2025 4:07 PM EDT [facility] Urine culture [facility] URINE OB DIP B/O URINE OB DIP B/ O Lab Routine Threatened premature labor, antepartum Cervix, short (affecting ) 30 weeks gestation of Supervision of high risk in third trimester Ordered: 09/08/2024 [facility] Work Phone: Comment on above: Ordered: 09/08/2024 Urine test visual color cmprsn meths HCG QUAL UR B/O Lab Routine Late menses Ordered: 03/09/2024 [facility] Work Phone: Comment on above: Ordered: 03/09/2024 Urine test visual color cmprsn meths HCG QUAL UR B/O Lab Routine Missed period Ordered: 01/12/2025 [facility] Work Phone: Comment on above: Ordered: 01/12/2025 [facility] Immunizations Immunization Date Immunization Notes Care Provider Ronni epps 06-01-2022 influenza virus vacc ine, unspecified formulation Franco Pendlebury [employer] Work Phone: [facility] 06-13-2021 influenza, injectabl e, quadrivalent, contains preservative Franco Pendlebury [employer] Work Phone: [facility] Work Phone: 06-13-2021 meningococcal polysaccharide (groups A, C, Y and W-135) diphtheria toxoid conjugate vaccine (MCV4P) Franco Pendlelauren [employer] Work Phone: [facility] Work Phone: 05-27-2020 influenza virus vacc ine, unspecified formulation Franco Pendlebury [employer] Work Phone: [facility] 05-19-2018 influenza, injectabl e, quadrivalent, preservative free Franco Pendlebury [employer] Work Phone: [facility] 05-13-2017 influenza, seasonal, injectable Franco Pendlebury [employer] Work Phone: [facility] Work Phone: 01-11-2017 Human Papillomavirus 9-valent vaccine Franco Pendlebury [employer] Work Phone: [facility] 05-14-2016 Human Papillomavirus 9-valent vaccine Franco Pendlebury [employer] Work Phone: [facility] 05-14-2016 influenza, injectabl e, quadrivalent, preservative free Franco Pendlebury [employer] Work Phone: [facility] 05-14-2016 meningococcal polysaccharide (groups A, C, Y and W-135) diphtheria toxoid conjugate vaccine (MCV4P) Franco Pendlelauren [employer] Work Phone: [facility] 05-14-2016 tetanus toxoid, redu no diphtheria toxoid, and acellular pertussis vaccine, adsorbed Franco Pendlebury [employer] Work Phone: [facility] 06-23-2015 influenza, injectabl e, quadrivalent, contains preservative Franco Pendlebury [employer] Work Phone: [facility] Work Phone: 06-27-2013 influenza virus vacc ine, live, attenuated, for intranasal use Franco Pendlebury [employer] Work Phone: [facility] 05-07-2011 influenza virus vacc ine, live, attenuated, for intranasal use Franco Pendlebury [employer] Work Phone: [facility] Work Phone: 05-27-2010 influenza virus vacc ine, live, attenuated, for intranasal use Franco Pendlebury [employer] Work Phone: [facility] Work Phone: 02-21-2010 diphtheria, tetanus toxoids and acellular pertussis vaccine [facility]omón [facility] [employer] Work Phone: [facility] Work Phone: 02-21-2010 measles, mumps and rubella virus vaccine Franco Pendlebury [employer] Work Phone: [facility] Work Phone: 02-21-2010 poliovirus vaccine, inactivated Franco Pendmeghnabury [employer] Work Phone: [facility] Work Phone: 02-21-2010 varicella virus vaccine Paramjit salomón Pendlebury [employer] Work Phone: [facility] Work Phone: 08-13-2008 influenza virus vacc ine, live, attenuated, for intranasal use Franco Pendlebury [employer] Work Phone: [facility] 08-21-2007 influenza virus vacc ine, live, attenuated, for intranasal use Franco Pendbury [employer] Work Phone: [facility] Work Phone: 09-09-2006 influenza virus vacc ine, unspecified formulation Francosalomón [facility] [employer] Work Phone: [facility] Work Phone: 05-15-2006 diphtheria, tetanus toxoids and acellular pertussis vaccine Franco [facility] [employer] Work Phone: [facility] Work Phone: 05-15-2006 haemophilus influenz ae type b vaccine, HbOC conjugate [facility] [employer] Work Phone: [facility] Work Phone: 02-13-2006 measles, mumps and rubella virus vaccine Francosalomón [facility] [employer] Work Phone: [facility] Work Phone: 02-13-2006 pneumococcal conjuga te vaccine, 7 valent Franco [facility] [employer] Work Phone: [facility] Work Phone: 02-13-2006 varicella virus vaccine Paramjit salomón [facility] [employer] Work Phone: [facility] Work Phone: 2005 DTaP-hepatitis B and poliovirus vaccine Franco [facility] [employer] Work Phone: [facility] Work Phone: 2005 haemophilus influenz ae type b vaccine, HbOC conjugate [facility] [employer] Work Phone: [facility] Work Phone: 2005 influenza virus vacc ine, unspecified formulation Francosalomón [facility] [employer] Work Phone: [facility] Work Phone: 2005 pneumococcal conjuga te vaccine, 7 valent Franco [facility] [employer] Work Phone: [facility] Work Phone: 2005 DTaP-hepatitis B and poliovirus vaccine [facility] [employer] Work Phone: [facility] Work Phone: 2005 haemophilus influenz ae type b vaccine, HbOC conjugate [facility] [employer] Work Phone: [facility] Work Phone: 2005 pneumococcal conjuga te vaccine, 7 valent [facility] [employer] Work Phone: [facility] Work Phone: 2005 DTaP-hepatitis B and poliovirus vaccine [facility] [employer] Work Phone: [facility] Work Phone: 2005 haemophilus influenz ae type b vaccine, HbOC conjugate [facility] [employer] Work Phone: [facility] Work Phone: 2005 pneumococcal conjuga te vaccine, 7 valent [facility] [employer] Work Phone: [facility] Work Phone: Payers Date Payer Category Payer Self-pay 2024 Private Health Insurance [id number] 2024 Medicaid [id number] 2024 Private Health Insurance [id number] 2023 Private Health Insurance [id number] 2017 Private Health Insurance [id number] 2005 Unknown [id number] 2.16.8 [id number] Private Health Insurance [id number] Unknown [id number] 2.16.8 [id number] Unknown [id number] 2.16.8 [id number] Unknown [id number] 2.16.8 [id number] Unknown [id number] 2.16.8 [id number] Unknown [id number] 2.16.8 [id number] Unknown [id number] 2.16.8 [id number] Unknown [id number] 2.16.8 [id number] Unknown [id number] 2.16.8 [id number] Unknown [id number] 2.16.8 [id number] Unknown [id number] 2.16.8 [id number] Unknown [id number] 2.16.8 [id number] Unknown [id number] 2.16.8 [id number] Social History Date Type Detail Facility Start: 07-04-2022 End: 04-29-2025 Tobacco smoking status NHIS Never smoked tobacco [facility] Start: 07-04-2022 End: 05-17-2024 Tobacco use and exposure Smokeless tobacco non-user [facility] Start: 11-27-2022 End: 03-09-2024 Alcohol intake Current non-drinker of alcohol (finding) [facility] Start: 06-27-2022 History SDOH Physica l Activity DPW 1 [facility] Start: 06-27-2022 History SDOH Financial 5 [facility] Start: 06-27-2022 History SDOH Transport Med 2 [facility] Start: 07-04-2022 Tobacco Comment no smoking in home [facility] Start: 2005 Sex Assigned At Not on file [facility] Start: 03-04-2023 End: 04-27-2024 [facility] Start: 03-04-2023 End: 04-27-2024 Tobacco use panel [facility] Start: 07-20-2012 How hard is it for y ou to pay for the very basics like food, housing, medical care, and heating Not hard at all [facility] (I/We) worried wheth er (my/our) food would run out before (I/we) got money to buy more. Never true [facility] In the past 12 month s, was there a time when you were not able to pay the mortgage or rent on time? No [facility] Start: 03-27-2024 End: 04-29-2025 Alcohol intake Ex-drinker (finding) [facility] Start: 03-24-2024 Education 13 [facility] Start: 02-23-2024 [facility] Start: 2005 Sex Assigned At Female [facility] Start: 03-24-2024 Gender identity Identifies as female gender (finding) [facility] Start: 03-24-2024 Sexual orientation Bisexual (finding ) [facility] The thought of [place] myself has occurred to me Hardly ever [facility] Are you now , , , , never or living with a partner? Living with partner [facility] How often to you hav e a drink containing alcohol? Monthly or less [facility] How many standard dr inks containing alcohol do you have on a typical day? 1 or 2 [facility] How often do you hav e 6 or more drinks on 1 occasion? Never [facility] How hard is it for y ou to pay for the very basics like food, housing, medical care, and heating Hard [facility] Do you feel stress - tense, restless, nervous, or anxious, or unable to sleep at night because your mind is troubled all the time - these days [OSQ] Very much [facility] (I/We) worried wheth er (my/our) food would run out before (I/we) got money to buy more. Often true [facility] The food that (I/we) bought just didn't last, and (I/we) didn't have money to get more. Sometimes true [facility] Goals Date Patient Goal Desired Activity /State Personal health goal Personal health goal Functional Status Date Assessment Result Facility 08-25-2024 Are you deaf, or do you have serious difficulty hearing No 08/25/2024 10:15 AM Bienvenido Gregory, BOZENA No [facility] 08-25-2024 Are you blind, or do you have serious difficulty seeing, even when wearing glasses No 08/25/2024 10:15 AM Bienvenido Gregory, BOZENA No [facility] 08-25-2024 Do you have serious difficulty walking or climbing stairs No 08/25/2024 10:15 AM Bienvenido Gregory, BOZENA No [facility] 08-25-2024 Do you have difficul ty dressing or bathing No 08/25/2024 10:15 AM Bienvenido Gregory, BOZENA No [facility] 08-25-2024 Because of a physica l, mental, or emotional condition, do you have difficulty doing errands alone such as visiting a physician's office or shopping No 08/25/2024 10:15 AM Bienvenido Gregory, BOZENA No [facility] Mental Status Date Assessment Result Facility 08-25-2024 Because of a physica l, mental, or emotional condition, do you have serious difficulty concentrating, remembering, or making decisions No 08/25/2024 10:15 AM Bienvenido Gregory, BOZENA No [facility] Clinical Notes 11-27-2022 to 04-30-2025 Telephone Encounter - Amairani Judd RN - 04/30/2025 8:06 AM EDTTelephone Encounter - Amairani Judd RN - 04/30/2025 8:06 AM Ene Patel APRN.CNP - 04/29/2025 2:45 PM EDT Note Date & Type Note Facility 04-30-2025 Telephone encounter Note Form atting of this note might be different from the original. 1st risk assessment form submitted 04/30/25 Amairani Judd RN [facility] 04-30-2025 Miscellaneous Notes Formattin g of this note might be different from the original. 1st risk assessment form submitted 04/30/25 Amairani Judd RN documented in this encounter [facility] 04-29-2025 Discharge summary [facility] 04-29-2025 History of Present illness Narrative Bioinformatics Specialist offered: Patient declines. INITIAL OB ASSESSMENT HPI: Zain is a 20 year old White Female here to establish Obstetrical Care. Patient's last menstrual period was 02/13/2025 (exact date). from OB Dating Form. was planned Complaints: Severe nausea/vomiting OB History Gravida2 Para1 Term0 Preterm1 AB0 Living1 SAB0 IAB0 Ectopic0 Multiple0 Live Births1 Previous history: Prior : never History of 4th degree laceration: No History of shoulder dystocia: No History of Hypertensive disorders including pre-eclampsia or gestational hypertension: No History of gestational diabetes: No Patient's Risk Screening for delivery: Have you had a prior menezes between 20w and 36w6d? yes How many pregnancies have you had before? 1 Did you have a previous baby with a GBS Infection? No Please select all that apply for any prior : N/A MEDICAL/PSYCHOSOCIAL HISTORY: History of hemorrhage or bleeding concerns: No Thyroid Disease: No History of chronic hypertension: No History of pre-existing diabetes: No No results found for: ABORHD BMI 27.39 kg/(m^2) Last Pap: never done History of abnormal pap: No Prior treatment for cervical dysplasia: none. Last HPV: History of STDs: None Partner History of STDs: None Did you have a partner with Herpes? No Tobacco use: No E-Cigarette/Vaping Use: No Caffeine use: Yes Drug use: No Alcohol use: No Multivitamin with Folic acid: Yes Would refuse blood transfusion if medically necessary: No Social Needs: How often does this describe you? I don't have enough money to pay my bills: Sometimes Within the past 12 months, have you worried that your food would run out before you had money to buy more? Never In the past 12 months, has lack of reliable transportation kept you from going to medical appointments or work, or from getting things needed for daily living? Never In the past 12 months, have you had any concerns about having a place to live, or about the condition or quality of your housing? Never Would you like more information on any of the following (please check all that apply)? Not interested Social History: Do you have any history of depression, anxiety, PTSD, or other mood problems? Yes Do you have a history of abuse or trauma that may impact your experience? No Are you currently employed? Yes Depression/Anxiety Screening: admits to symptoms of depression. OB Depression and Anxiety Screening- This Encounter Feeling down, depressed, or hopeless: Several days Little interest or pleasure in doing things: Several days Feeling nervous, anxious, or on edge More than half the days Not being able to stop or control worrying Several days Anxiety Pre-Screening Total (If >/= 3 additional questions will be reviewed) 3 Worrying too much about different things More than half the days Trouble relaxing Nearly Everyday Being so restless that it is hard to sit still Nearly Everyday Becoming easily annoyed or irritable More than half the days Feeling afraid, as if something awful might happen Nearly Everyday How difficult to do work, care for home, get along with people Somewhat difficult UMU-7 Score 16 Genetic Screening: Partner present: Yes Patient verbalized knowledge of partner family health history: Yes Do you or your partner have any personal or family history of defects not previously discussed: No Do you have history of a complicated by anomaly, genetic condition, or demise: No Preeclampsia Risk Screening: Screening for prevention of preeclampsia: High risk factors: None Moderate risk ractors: None OB Risk Screening: Completed, positive findings include: Patient answered 'Yes' they had a prior menezes between 20w and 36w6d. Marital Status:Partnering Partner: Name: Enzo Age: 22 Occupation: [employer] Gender: Male PAST MEDICAL HISTORY Diagnosis Date ADHD (attention deficit hyperactivity disorder) Depression affecting in second trimester, antepartum (HCC) 05/22/2024 May 22, 2024 Initial Office Visit from 03/27/2024 in OB/Gynecology Routine Office Visit from 05/22/2024 in OB/Gynecology 03/24/2024 03/27/2024 05/22/2024 [id number] Depression Screening Over the past 2 weeks have you felt down, depressed, or hopeless? Negative Negative Positive - Further Testing Generalized anxiety disorder Hyperemesis gravidarum (HCC) 03/27/2024 May 22, 2024 Significantly improving with Zofran pump and IV fluids. Toby Rome APRN.HOG BUYER May 13, 2024 - Continues to experience severe nausea and vomiting - Minimal food/water intake - Phenergan providing some relief - Recommend Zofran pump, ordered. May 08, 2024 7% weight loss Tried going to ER, but was waiting for 4 hours so she left Vomits up to 10x per day NEGATIVE MEDICAL HISTORY normal color vision past medical history of age 2 years dermatoid - by her right eye contractions (HCC) 08/24/2024 PAST SURGICAL HISTORY Procedure Laterality Date NEXPLANON REMOVAL Left 10/07/2023 PAST SURGICAL HISTORY OF surgery on eye Current Outpatient Medications Medication Sig Dispense Refill ondansetron (ZOFRAN) 4 mg tablet Take 1 tablet by mouth every 8 hours as needed for nausea/vomiting. 30 tablet 0 promethazine (PHENERGAN) 12.5 mg suppository 1 suppository by RECTAL route every 6 hours as needed. 40 suppository 1 vits no.138/folic/dha (ALIVE ORAL) Take by mouth. Cholecalciferol, Vitamin D3, (VITAMIN D) 25 mcg (1,000 unit) cap Take 1 capsule by mouth once daily. 90 capsule 3 hydrocortisone 1 % ointment Apply to affected area two times a day for 21 days. Apply twice daily for 2 weeks then daily for 1 week 56 g 0 sertraline (ZOLOFT) 100 mg tablet Take 1 tablet by mouth once daily. 90 tablet 3 aspirin, enteric coated (ECOTRIN LOW STRENGTH) 81 mg EC tablet Take 1 tablet by mouth once daily. 90 tablet 3 No current facility-administered medications for this visit. Allergies As of Date: 04/29/2025 (No Known Allergies) Fully Assessed 04/29/2025 Does patient have penicillin allergy: No REVIEW OF SYSTEMS: GENERAL: Negative for: Fever or Chills HEENT: Negative for: Headache, Impaired Vision, Ringing in Ears, Nosebleeds NECK: Negative for: Swelling, Pain, Stiffness RESPIRATORY: Negative for: Cough, Shortness of breath, Wheezing GASTROINTESTINAL: Negative for: Heartburn, Constipation, Diarrhea, Blood in stool and Positive for: Nausea and Vomiting MUSCULOSKELETAL: Negative for: Muscle or joint pain, stiffness, Joint swelling NEUROLOGIC/PSYCHIATRIC: Negative for: Weakness, Paralysis, Numbness, Tingling, Tremor, Anxiety, Depression, Memory loss SKIN: Negative for: Rash, Itching GENITOURINARY: Negative for: vaginal itching, vaginal discharge, hematuria or dysuria SENSITIVE EXAM: The sensitive examination was discussed with the Patient or Patient's Authorized Surface Plate Inspector. As applicable, any other physician, advance practice provider, medical student, or other health professional student that will be observing or involved in the sensitive examination for educational or training purposes was discussed with the Patient or Authorized Surface Plate Inspector. The Patient or Authorized Surface Plate Inspector has agreed to proceed with the sensitive examination. (Sensitive examination includes inspection and/or palpation of the breasts, pelvis, prostate and anorectal regions). PHYSICAL EXAM: BP 118/66 Wt 160 lb 12.8 oz (72.9kg) LMP 02/13/2025 GENERAL: pleasant in no apparent distress DERMATOLOGY: Normal, without lesions, non-icteric, and non-hirsute CHEST: Normal inspiratory effort BREAST: soft, non-tender, symmetric, no dominant mass, normal nipple-areolar complex, no lymphadenopathy, and no nipple discharge ABDOMEN: soft, non-tender, and no masses NEURO: alert and oriented x3,exam grossly non-focal PELVIS: External genitalia normal without lesions. Perineal body intact. No vaginal or cervical lesions. Cervix closed. No adnexal masses or tenderness. Clinical Pelvimetry: Pelvimetry clinically assessed as adequate Limited OB ultrasound exam: single intrauterine and POCUS performed. +cardiac activity, CRL NOT consistent with LMP. Ene King, HEAD SAWYER.HOG BUYER SBIRT Zain Rose was given the 4P's screening tool. Zain answered No to all the questions, the result is determined to be negative. ASSESSMENT: 20 year old at 7w1d wks gestational age PLAN: 1) Patient oriented to practice. Patient given new OB orientation folder. Discussed nutrition, folic acid supplementation, dietary guidelines, exercise, smoking, alcohol, caffeine, and drug use. Discussed gestational weight gain guidelines. Discussed routine OB labs including STD/HIV. Discussed how to access Your guide to a health and the [employer]. Reviewed midwifery and service station cashier services that are available. 2) Screening: Hemoglobin A1C: ordered Baby Aspirin: The patient has been counseled about the potential benefits of low dose aspirin in and our recommendation that this be offered to all patients, regardless of whether they meet the high risk criteria specified above. She Accepts Aneuploidy Screening: Discussed aneuploidy screening, nuchal translucency/first trimester early anatomy ultrasound and NIPT. The risks/benefits and limitations of NIPT/aneuploidy screening were reviewed including the potential for false negative and false positive results. The availability of genetic counseling was reviewed. Information on aneuploidy screening was provided. The patient chooses to proceed with First trimester early anatomy ultrasound (12-13w6d) and NIPT (10 weeks) Myriad Carrier Screening: Discussed myriad carrier screening. We discussed the availability of professional-society guided carrier screening and reviewed the conditions screened and limitations of screening. The availability of genetic counseling was reviewed. Information on carrier screening was provided. 3) Patient offered option of Virtual Visits. Patient unsure. May consider in future. 4) History of . Will order MFM consult for further discussion. 5) Zofran pump ordered Follow up in 5 weeks or sooner cristal. Ene King APRN.LUIS documented in this encounter [facility] 04-29-2025 Note HNO ID: [id number] Author: ENE KING APRN.CNP Service: ? Author Type: Nurse Practitioner Type: Progress Notes Filed: 04/29/2025 16:59 Note Text: Bioinformatics Specialist offered: Patient declines. INITIAL OB ASSESSMENT HPI: Zain is a 20 year old White Female here to establish Obstetrical Care. Patient's last menstrual period was 02/13/2025 (exact date). from OB Dating Form. was planned Complaints: Severe nausea/vomiting OB History Gravida2 Para1 Term0 Preterm1 AB0 Living1 SAB0 IAB0 Ectopic0 Multiple0 Live Births1 Previous history: Prior : never History of 4th degree laceration: No History of shoulder dystocia: No History of Hypertensive disorders including pre-eclampsia or gestational hypertension: No History of gestational diabetes: No Patient's Risk Screening for delivery: Have you had a prior menezes between 20w and 36w6d? yes How many pregnancies have you had before? 1 Did you have a previous baby with a GBS Infection? No Please select all that apply for any prior : N/A MEDICAL/PSYCHOSOCIAL HISTORY: History of hemorrhage or bleeding concerns: No Thyroid Disease: No History of chronic hypertension: No History of pre-existing diabetes: No No results found for: ABORHD BMI 27.39 kg/(m2) Last Pap: never done History of abnormal pap: No Prior treatment for cervical dysplasia: none. Last HPV: History of STDs: None Partner History of STDs: None Did you have a partner with Herpes? No Tobacco use: No E-Cigarette/Vaping Use: No Caffeine use: Yes Drug use: No Alcohol use: No Multivitamin with Folic acid: Yes Would refuse blood transfusion if medically necessary: No Social Needs: How often does this describe you? I don't have enough money to pay my bills: Sometimes Within the past 12 months, have you worried that your food would run out before you had money to buy more? Never In the past 12 months, has lack of reliable transportation kept you from going to medical appointments or work, or from getting things needed for daily living? Never In the past 12 months, have you had any concerns about having a place to live, or about the condition or quality of your housing? Never Would you like more information on any of the following (please check all that apply)? Not interested Social History: Do you have any history of depression, anxiety, PTSD, or other mood problems? Yes Do you have a history of abuse or trauma that may impact your experience? No Are you currently employed? Yes Depression/Anxiety Screening: admits to symptoms of depression. OB Depression and Anxiety Screening- This Encounter Feeling down, depressed, or hopeless: Several days Little interest or pleasure in doing things: Several days Feeling nervous, anxious, or on edge More than half the days Not being able to stop or control worrying Several days Anxiety Pre-Screening Total (If >/= 3 additional questions will be reviewed) 3 Worrying too much about different things More than half the days Trouble relaxing Nearly Everyday Being so restless that it is hard to sit still Nearly Everyday Becoming easily annoyed or irritable More than half the days Feeling afraid, as if something awful might happen Nearly Everyday How difficult to do work, care for home, get along with people Somewhat difficult UMU-7 Score 16 Genetic Screening: Partner present: Yes Patient verbalized knowledge of partner family health history: Yes Do you or your partner have any personal or family history of defects not previously discussed: No Do you have history of a complicated by anomaly, genetic condition, or demise: No Preeclampsia Risk Screening: Screening for prevention of preeclampsia: High risk factors: None Moderate risk ractors: None OB Risk Screening: Completed, positive findings include: Patient answered 'Yes' they had a prior menezes between 20w and 36w6d. Marital Status:Partnering Partner: Name: Enzo Age: 22 Occupation: [employer] Gender: Male PAST MEDICAL HISTORY Diagnosis Date ADHD (attention deficit hyperactivity disorder) Depression affecting in second trimester, antepartum (FORM[facility]LY [facility]) 05/22/2024 May 22, 2024 Initial Office Visit from 03/27/2024 in OB/Gynecology Routine Office Visit from 05/22/2024 in OB/Gynecology 03/24/2024 03/27/2024 05/22/2024 1543 1123 1507 Depression Screening Over the past 2 weeks have you felt down, depressed, or hopeless? Negative Negative Positive - Further Testing Generalized anxiety disorder Hyperemesis gravidarum ([facility]) 03/27/2024 May 22, 2024 Significantly improving with Zofran pump and IV fluids. Toby Rome APRN.HOG BUYER May 13, 2024 - Continues to experience severe nausea and vomiting - Minimal food/water intake - Phenergan providing some relief - Recomme (more content not included)... [facility] 04-29-2025 Instructions Kate Guo LPN - 04/29/2025 2:24 PM EDT Please select the following link to access the [facility] Your Guide to a Healthy . [email or web address] Please select the following link to access the [facility] Your Guide to a Healthy . [email or web address] documented in this encounter [facility] 04-29-2025 Discharge summary Note Date/Time April 29, 2025 9:17pm [facility] Medical Records Department [address] [place] [address] Emergency Department Summary 04/29/25 MR#: [id number] Acct: [id number] Name: ZAIN ROSE GALINDO Rep #:[id number] : 2005 20 From: Nate calhoun DO PCP: Dr. Halie Butts, DO Status:REG ER Location: ED HPI History of Present Illness Chief Complaint: Nausea/Vomiting Narrative Narrative: Chief complaint and HPI: 20-year-old female who is G2, P1 and 7 weeks presents for evaluation of nausea and vomiting. 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 She follows with [facility] DISPOSAL PLANT OPERATOR. She states she was at their office today. Patient hadhyperemesis gravidarum with her first . She has home Zofran. She states the nausea and vomiting worsened today with little p.o. intake. DISPOSAL PLANT OPERATOR told her to come to the emergency department for fluids. She denies any fever, chills, shortness of breath, chest pain, abdominal pain, vaginal bleeding, dysuria. Review of systems: See HPI Medications: As listed on the chart Allergies: As listed on the chart PFSH: Per chart Vital signs: As listed on the chart. Reviewed. Physical exam: Gen: A&O x3, NAD Head: Normocephalic, atraumatic Eyes: No sclera icterus, conjunctiva clear ENT: Mildly dry mucous membranes Neck: Trachea midline, No JVD CV: RRR, no murmurs, no peripheral edema Resp: Lungs CTA BL, no w/r/c GI: Abd soft, non-distended, non-tender, no r/r/g Musc: Full ROM, no deformity Skin: Warm, dry Neuro: Alert, oriented, grossly intact, sensation intact Psych: Cooperative, appropriate mood and affect [facility] Medical History ADHD Home Medications ?Medication ?Instructions ?Recorded ?Last Taken ?Type vit no.95-ferrous 1 tab PO DAILY 08/24/24 History fumarate 28 mg-folic acid 800 mcg tablet () ondansetron HCl 4 mg tablet 4 mg PO Q8H PRN PRN nausea /vomiting 04/08/25 04/07/25 History sertraline 100 mg tablet 100 mg PO DAILY 04/08/25 History Allergy/AdvReac Type Severity Reaction Status Date / Time No Known Allergies Allergy Verified 04/29/25 18:01 Social History Smoking Status: Never smoker EXAM Physical Exam Const Vital Signs: 04/29/25 18:01 04/29/25 20:01 Temperature 98.3 F Temperature Source Temporal Pulse Rate 97 75 Respiratory Rate 16 24 H Blood Pressure 116/83 H 106/76 Blood Pressure Mean 94 86 Pulse Ox 99 100 Oxygen Delivery Method Room Air Room Air MDM MDM MDM Narrative Medical decision making narrative: 20-year-old female who is G2, P1 and 7 weeks presents for evaluation ofnausea and vomiting. 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 She follows with [facility] DISPOSAL PLANT OPERATOR. Patient had hyperemesis gravidarum with her first . She has home Zofran. She states the nausea and vomiting worsened today with little p.o. intake. DISPOSAL PLANT OPERATOR told her to come to the emergency department for fluids. She denies any fever, chills, shortness of breath, chest pain, abdominal pain, vaginal bleeding, dysuria. Differential diagnosis includes but is not limited to nausea vomiting and early , dehydration, electrolyte abnormality, UTI. NS bolus and Zofran ordered. Basic labs ordered with UA. Patient not having any abdominal pain or vaginal bleeding therefore I do not think any ultrasound is needed at this time. CBC with leukocytosis of 14.6. This is not unusual in . No anemia. BMP relatively unremarkable without significant electrolyte abnormality or KUNAL. UA positive for ketones which is consistent with nausea andvomiting. No UTI but she does have +1 bacteria. Will treat with Keflex for asymptomatic bacteriuria in to prevent UTI. Patient was updated of all results for and understand the plan. Symptoms have improved with medications here. Able to tolerate p.o. intake. Patient stable to discharge home. Does not need prescription for antinausea medicine as she states she has it at home. Impression: 1. Nausea and vomiting in first trimester 2. Asymptomatic bacteriuria in Lab Data Labs: Laboratory Results - last 24 hr 04/29/25 04/29/25 18:12 19:29 WBC 14.6 H RBC 5.23 Hgb 14.9 Hct 44.4 MCV 84.9 MCH 28.5 MCHC 33.6 RDW Std Deviation 38.5 RDW Coeff of Derek 12.6 Plt Count 283 MPV 11.4 Immature Gran % (Auto) 0.500 Neut % (Auto) 86.1 H Lymph % (Auto) 8.4 L Meade % (Auto) 4.6 Eos % (Auto) 0.1 Baso % (Auto) 0.3 Absolute Neuts (auto) 12.6 H Absolute Lymphs (auto) 1.23 Nucleated RBC % 0 Sodium 136 Potassium 3.7 Chloride 102 Carbon Dioxide 20.2 L Anion Gap 14 BUN 5 Creatinine 0.54 L Estim Creat Clear Calc 169.93 Est GFR (MDRD) Non-Af 135 BUN/Creatinine Ratio 9.8 L Glucose 88 Calcium 9.7 Urine Color Yellow Urine Clarity Sl. Cloudy Urine pH 6.0 Ur Specific [place] 1.020 Urine Protein 30 H Urine Glucose (UA) Normal Urine Ketones 150 A* Urine Occult Blood Negative Urine Nitrite Negative Urine Bilirubin Negative Urine Urobilinogen Normal Ur Leukocyte Esterase Negative Urine RBC 0-5 SEEN Urine WBC 0-5 SEEN Ur Squamous Epith Cells 5-10 SEEN Urine Bacteria 1+ Urine Mucus 0 SEEN Discharge Plan Triage Chief Complaint: Nausea/Vomiting ED Provider: Nate Bowling Dx/Rx/DC Orders Prescriptions: No Action ondansetron HCl 4 mg tablet 4 mg PO Q8H PRN PRN (Reason: nausea/vomiting) sertraline 100 mg tablet 100 mg PO DAILY PNV no.95-ferrous fumarate-FA [] 28 mg iron- 800 mcg tablet 1 tab PO DAILY Primary Care Provider: Halie Butts Referrals: Halie Butts DO [Primary Care Provider] - Print Language: Somali What to do if you have Problems For any increased pain, shortness of breath, bleeding, nausea or vomiting, chestpain, or any unexpected problems, contact your Primary Care Provider. Call [facility] ([phone]) or report to the closest Emergency Room. Call 911 if necessary. 04/29/252116 <Electronically signed by Nate Bowling DO> Cosigner Signature (if applicable): CC: Dr. Halie Butts DO ~ Signed [facility] Work Phone: 1(835) 171-284209-04-2025 Telephone encounter Note* Telephone Encounter - Carine Doherty RN - 04/22/2025 5:03 PM EDT Retention Science message sent to Pt. Carine Doherty RN [facility]09-04-2025 Miscellaneous Notes* Telephone Encounter - Carine Doherty RN - 04/22/2025 5:03 PM EDT Retention Science message sent to Pt. Carine Doherty RN * Addendum Note - Seth Castro APRN.CNM - 04/22/2025 1:59 PM EDTAddended by: SETH CASTRO on: 04/22/2025 01:59 PM Modules accepted: Orders * Telephone Encounter - Seth Castro APRN.CNM - 04/22/2025 1:57 PM EDT RX sent. She should NOT use both medications together. Seth Castro APRN.CNM * Telephone Encounter - Carine Doherty RN - 04/22/2025 1:45 PM EDT Spoke to Dr. Grimm, as per her note on 04/19/25, Pt called in over weekend and Pt was given phenergan because she was unable to keep PO zofran down and Dr. Grimm did state that the Pt did not sound well on the phone. Would you be willing to at least give Pt one refill of zofran prior to NOB appt? Please advise. Carine Doherty RN * Telephone Encounter - Seth Castro APRN.CNM - 04/22/2025 1:05 PM EDT On 04/19/25 patient was unable to tolerate PO Zofran and rectal phenergan was prescribed at this time. Patient should continue to use suppositories as needed and will discuss at NOB. Seth Castro APRN.CNM * Telephone Encounter - Matt Lewis RN - 04/22/2025 1:03 PM EDT Patient calling requesting a refill on her Zofran Rx. Patient is currently using Phenergan suppositories, but states she can only use them at night d/t work. Patient has a New OB appointment scheduled for 04/29. Please order if appropriate, will need to call patient back. Matt Lewis RN [facility] Note* Addendum Note - Seth Castro APRN.CNM - 04/22/2025 1:59 PM EDTAddended by: SETH CASTRO on: 04/22/2025 01:59 PM Modules accepted: Orders [facility]09-04-2025 Telephone encounter Note* Telephone Encounter - Seth Castro APRN.CNM - 04/22/2025 1:57 PM EDT RX sent. She should NOT use both medications together. Seth Castro APRN.CNM [facility]09-04-2025 Telephone encounter Note* Telephone Encounter - Carine Doherty RN - 04/22/2025 1:45 PM EDT Spoke to Dr. Grimm, as per her note on 04/19/25, Pt called in over weekend and Pt was given phenergan because she was unable to keep PO zofran down and Dr. Grimm did state that the Pt did not sound well on the phone. Would you be willing to at least give Pt one refill of zofran prior to NOB appt? Please advise. Carine Doherty RN [facility]09-04-2025 Telephone encounter Note* Telephone Encounter - Seth Castro APRN.CNM - 04/22/2025 1:05 PM EDT On 04/19/25 patient was unable to tolerate PO Zofran and rectal phenergan was prescribed at this time. Patient should continue to use suppositories as needed and will discuss at NOB. Seth Castro APRN.CNM [facility]09-04-2025 Telephone encounter Note* Telephone Encounter - Matt Lewis RN - 04/22/2025 1:03 PM EDT Patient calling requesting a refill on her Zofran Rx. Patient is currently using Phenergan suppositories, but states she can only use them at night d/t work. Patient has a New OB appointment scheduled for 04/29. Please order if appropriate, will need to call patient back. Matt Lewis RN [facility]09-01-2025 Telephone encounter Note* Telephone Encounter - Alison Grimm MD - 04/19/2025 3:24 PM EDT Constant nausea. Unable to tolerate PO zofran. Requesting a different medication. Ok trying rectal phenergan [facility]09-01-2025 Miscellaneous Notes* Telephone Encounter - Alison Grimm MD - 04/19/2025 3:24 PM EDT Constant nausea. Unable to tolerate PO zofran. Requesting a different medication. Ok trying rectal phenergan [facility] Telephone encounter Note * Telephone Encounter - Diony Ferreira MD - 04/16/2025 2:22 PM EDT Low vit D [facility]08-29-2025 Miscellaneous Notes* Telephone Encounter - Diony Ferreira MD - 04/16/2025 2:22 PM EDT Low vit D [facility]25 NoteHNO ID: [id number] Author: TOBY ROME APRN.HOG BUYER Service: ? Author Type: Nurse Practitioner Type: Progress Notes Filed: 04/16/2025 15:51 Note Text: Bioinformatics Specialist offered: Patient declines. Zain Rose is a 20 year old female who presents for lower left quadrant pain in early . HPI: Zain is here for lower left quadrant pain in early . LMP 02/09, putting her at around 9 weeks today. HCG has increased to 9771 (04/14) from 989 on 04/08. Reports pain is still present, but mild. Denies bleeding. She is almost 6 months . Has not had ultrasound to confirm IUP. 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 Operator History LMP: 02/13/2025 (Exact Date), Unknown Age at Menarche: 13 Age at First : Age at Menopause: Corduroy Brusher Operator History Comments: Sexual Activity: Not Currently; Male Contraception: No contraception data on record PAST MEDICAL HISTORY Diagnosis Date ADHD (attention deficit hyperactivity disorder) Depression affecting in second trimester, antepartum (FORM[facility]LY [facility]) 05/22/2024 May 22, 2024 Initial Office Visit from 03/27/2024 in OB/Gynecology Routine Office Visit from 05/22/2024 in OB/Gynecology 03/24/2024 03/27/2024 05/22/2024 1543 1123 1507 Depression Screening Over the past 2 weeks have you felt down, depressed, or hopeless? Negative Negative Positive - Further Testing Generalized anxiety disorder Hyperemesis gravidarum ([facility]) 03/27/2024 May 22, 2024 Significantly improving with Zofran pump and IV fluids. Toby Rome, ULISES.HOG BUYER May 13, 2024 - Continues to experience severe nausea and vomiting - Minimal food/water intake - Phenergan providing some relief - Recommend Zofran pump, ordered. May 08, 2024 7% weight loss Tried going to ER, but was waiting for 4 hours so she left Vomits up to 10x per day NEGATIVE MEDICAL HISTORY normal color vision past medical history of age 2 years dermatoid - by her right eye contractions ([facility]LY [facility]) 08/24/2024 PAST SURGICAL HISTORY Procedure Laterality Date NEXPLANON REMOVAL Left 10/07/2023 PAST SURGICAL HISTORY OF surgery on eye FAMILY HISTORY Problem Relation Age of Onset Allergies Father Cancer Maternal Grandmother Breast Cancer Maternal Grandmother SOCIAL HISTORY[1] Current Outpatient Medications Medication Sig vits no.138/folic/dha (ALIVE ORAL) Take by mouth. hydrocortisone 1 % ointment Apply to affected area two times a day for 21 days. Apply twice daily for 2 weeks then daily for 1 week ondansetron (ZOFRAN) 4 mg tablet Take 1 tablet by mouth every 8 hours as needed for nausea/vomiting. sertraline (ZOLOFT) 100 mg tablet Take 1 tablet by mouth once daily. No current facility-administered medications for this visit. Allergies As of Date: 04/16/2025 (No Known Allergies) Fully Assessed 04/16/2025 REVIEW OF SYSTEMS Abdomen: No bloating, early satiety, indigestion, or increased flatulence. No abdominal pain, nausea, vomiting, diarrhea, or constipation. + LLQ pain Expanded ROS: GRADUATE INTERN: + positive test Allergies and current medication updated:Yes SENSITIVE EXAM: The sensitive examination was discussed with the Patient or Patient's Authorized Surface Plate Inspector. As applicable, any other physician, advance practice provider, medical student, or other health professional student that will be observing or involved in the sensitive examination for educational or training purposes was discussed with the Patient or Authorized Surface Plate Inspector. The Patient or Authorized Surface Plate Inspector has agreed to proceed with the sensitive examination. (Sensitive examination includes inspection and/or palpation of the breasts, pelvis, prostate and anorectal regions). EXAM: BP 120/68 Wt 168 lb (76.2kg) LMP 02/13/2025 GENERAL: pleasant, female in no apparent distress HEENT: Normocephalic, atraumatic, mucus membranes moist, and no lesions CHEST: Normal inspiratory effort ABDOMEN: soft, non-tender, and no masses PELVIC: external genitalia normal, normal Bartholin's glands, urethra, Huxley's glands, no vulvar lesions, normal appearing perineal body and perianal region NEURO: alert and oriented x3,exam grossly non-focal EXTREMITIES: normal ASSESSMENT AND PLAN: 1. with uncertain dates in first trimester (HCC) - ICD9: V22.1, ICD10: Z34.91 (primary diagnosis) 2. with uncertain viability, single or unspecified fetus (HCC) - ICD9: V23.87, ICD10: O36.80X0 - POCUS confirms gestational sac in uterus - Images also reviewed by Dr. Carrillo - Discussed with Zain that ectopic has been ruled out. Per Dr. Carrillo, repeat ultrasound in 2 weeks or more to determine viability of . - Discussed with Zain that this could be early or potentially early loss 3. Left lower quadrant pain - ICD9: 789.04, ICD10: R10.32 (more content not included)...[facility]08-29-2025 History of Present illness Narrative* Toby Rome APRN.HOG BUYER - 04/16/2025 1:25 PM EDT Bioinformatics Specialist offered: Patient declines. Zain Rose is a 20 year old female who presents for lower left quadrant pain in early . HPI: Zain is here for lower left quadrant pain in early . LMP 02/09, putting her at around 9 weeks today. HCG has increased to 9771 (04/14) from 989 on 04/08. Reports pain is still present, but mild. Denies bleeding. She is almost 6 months . Has not had ultrasound to confirm IUP. 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 Operator History LMP: 02/13/2025 (Exact Date), Unknown Age at Menarche: 13 Age at First : Age at Menopause: Corduroy Brusher Operator History Comments: Sexual Activity: Not Currently; Male Contraception: No contraception data on record PAST MEDICAL HISTORY Diagnosis Date ADHD (attention deficit hyperactivity disorder) Depression affecting in second trimester, antepartum (FORMERLY [facility]) 05/22/2024 May 22, 2024 Initial Office Visit from 03/27/2024 in OB/Gynecology Routine Office Visit from 05/22/2024 in OB/Gynecology 03/24/2024 03/27/2024 05/22/2024 1543 1123 1507 Depression Screening Over the past 2 weeks have you felt down, depressed, or hopeless? Negative Negative Positive - Further Testing Generalized anxiety disorder Hyperemesis gravidarum (FORM[facility]LY [facility]) 03/27/2024 May 22, 2024 Significantly improving with Zofran pump and IV fluids. Toby Rome, HEAD SAWYER.HOG BUYER May 13, 2024 - Continues to experience severe nausea and vomiting - Minimal food/water intake - Phenergan providing some relief - Recommend Zofran pump, ordered. May 08, 2024 7% weight loss Tried going to ER, but was waiting for 4 hours so she left Vomits up to 10x per day NEGATIVE MEDICAL HISTORY normal color vision past medical history of age 2 years dermatoid - by her right eye contractions (HCC) 08/24/2024 PAST SURGICAL HISTORY Procedure Laterality Date NEXPLANON REMOVAL Left 10/07/2023 PAST SURGICAL HISTORY OF surgery on eye FAMILY HISTORY Problem Relation Age of Onset Allergies Father Cancer Maternal Grandmother Breast Cancer Maternal Grandmother SOCIAL HISTORY[1] Current Outpatient Medications Medication Sig vits no.138/folic/dha (ALIVE ORAL) Take by mouth. hydrocortisone 1 % ointment Apply to affected area two times a day for 21 days. Apply twice daily for 2 weeks then daily for 1 week ondansetron (ZOFRAN) 4 mg tablet Take 1 tablet by mouth every 8 hours as needed for nausea/vomiting. sertraline (ZOLOFT) 100 mg tablet Take 1 tablet by mouth once daily. No current facility-administered medications for this visit. Allergies As of Date: 04/16/2025 (No Known Allergies) Fully Assessed 04/16/2025 REVIEW OF SYSTEMS Abdomen: No bloating, early satiety, indigestion, or increased flatulence. No abdominal pain, nausea, vomiting, diarrhea, or constipation. + LLQ pain Expanded ROS: GRADUATE INTERN: + positive test Allergies and current medication updated:Yes SENSITIVE EXAM: The sensitive examination was discussed with the Patient or Patient's Authorized Surface Plate Inspector. As applicable, any other physician, advance practice provider, medical student, or other health professional student that will be observing or involved in the sensitive examination for educational or training purposes was discussed with the Patient or Authorized Surface Plate Inspector. The Patient or Authorized Surface Plate Inspector has agreed to proceed with the sensitive examination. (Sensitive examination includes inspection and/or palpation of the breasts, pelvis, prostate and anorectal regions). EXAM: BP 120/68 Wt 168 lb (76.2kg) LMP 02/13/2025 GENERAL: pleasant, female in no apparent distress HEENT: Normocephalic, atraumatic, mucus membranes moist, and no lesions CHEST: Normal inspiratory effort ABDOMEN: soft, non-tender, and no masses PELVIC: external genitalia normal, normal Bartholin's glands, urethra, Huxley's glands, no vulvar lesions, normal appearing perineal body and perianal region NEURO: alert and oriented x3,exam grossly non-focal EXTREMITIES: normal ASSESSMENT AND PLAN: 1. with uncertain dates in first trimester (HCC) - ICD9: V22.1, ICD10: Z34.91 (primary diagnosis) 2. with uncertain viability, single or unspecified fetus (HCC) - ICD9: V23.87, ICD10: O36.80X0 - POCUS confirms gestational sac in uterus - Images also reviewed by Dr. Carrillo - Discussed with Zain that ectopic has been ruled out. Per Dr. Carrillo, repeat ultrasound in 2 weeks or more to determine viability of . - Discussed with Zain that this could be early or potentially early loss 3. Left lower quadrant pain - ICD9: 789.04, ICD10: R10.32 - Improving - Reviewed to go to ER with severe pain, fever, chills, heavy bleeding RTO for new OB visit or sooner if other symptoms occur. Toby Rome APRN.CNP Medical Decision Making: Problems: Low: Acute, uncomplicated illness or injury Data: Unique test result(s) reviewed: 3+ Risk: Low: Low risk from testing/treatment Medical Decision Making Level: 3 - Low [1] Social History Tobacco Use Smoking status: Never Smokeless tobacco: Never Tobacco comments: no smoking in home Vaping Use Vaping status: Former Quit date: 03/08/2024 Substance Use Topics Alcohol use: Not Currently Comment: no alcohol use in home Drug use: [facility] Telephone encounter Note * Telephone Encounter - Alison Yu RN - 04/16/2025 9:46 AM EDT Patient called the office. Has not had an US yet. See 04/08 phone note. Scheduled with today for POCUS. Alison Yu RN [facility]08-29-2025 Miscellaneous Notes* Telephone Encounter - Alison Yu RN - 04/16/2025 9:46 AM EDT Patient called the office. Has not had an US yet. See 04/08 phone note. Scheduled with today for POCUS. Alison Yu RN documented in [facility] encounterWay[facility]08-27-2025 Instructions* Patient Instructions* Diony Ferreira MD - 04/14/2025 5:33 PM EDT Please use the hydrocortisone for your eczema on your hands, and try not to scratch your rash. Please use vaseline or aquaphor twice daily to avoid flares, and use hypoallergenic soaps. Please see sleep cognitive behavioural therapy. Please follow up with OB. I have reached out to see if they can get you in sooner. If your vomiting becomes so severe that you are unable to stay hydrated, then you should attend an ED. documented in [facility] encounter[facility]08-27-2025 NoteHNO ID: [id number] Author: DIONY FERREIRA MD Service: ? Author Type: Physician Type: Progress Notes Filed: 04/14/2025 17:42 Note Text: Family Medicine OUTPATIENT VISIT April 14, 2025 CC: Depression follow up HPI: 20 year old female patient with a history of , , delivered via at [facility] on 10/22/24. 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 HOMAR on 02/25/25 with myself. At that time, she had post depression. Consulted psychiatry and increased sertraline to 100mg Consulted psychology. Also had pain at site of epidural with leg paresthesia though in upper thigh so ordered MRI. Interval events Patient now . Advised to continue sertraline. Established with panel sewer. ED visit 04/08. Hcg 989, US did now show pregancy bu expected at this HCG. Feels like mood is better. Still having some low mood but no more TSH. Anhedonia has resolved. Sleep is poor. Fatigued during day. Chronic insomnia. Concentration is so so. Self esteem is improved. Anxiety is improved a little bit. Still having nausea and emesis. Zofran is helping somewhat. Using zofran ATC. Having emesis about five times per day. Abdominal pain is improved today. Has a rash between her fingers. Noone else with a rash like this. Only on one hand. Scented soaps make it worse. Itchy. Not painful. Not anywhere else. Review of Systems PAIN ASSESSMENT: Negative for pain, history of chronic pain, or current treatment for a chronic pain condition. GENERAL: No weight loss, or fevers HEENT: Negative for frequent or significant headaches RESPIRATORY: Negative for cough, wheezing, shortness of breath CARDIOVASCULAR: Negative for chest pain, palpitations, PND or orthopnea GI: as above : No history of dysuria, frequency, urgency, or change in urine appearance NEURO: No history of headaches, numbness, weakness, or changes to vision or hearing Health maintenance: Meningococcal B Vaccine(1 of 2 - Standard) Never done Allergies: ALLERGIES No Known Allergies Medications: ondansetron (ZOFRAN) 4 mg tablet Take 1 tablet by mouth every 8 hours as needed for nausea/vomiting. sertraline (ZOLOFT) 100 mg tablet Take 1 tablet by mouth once daily. hydrocortisone 1 % ointment Apply to affected area two times a day for 21 days. Apply twice daily for 2 weeks then daily for 1 week iv contrast (will be provided with radiology test) MRI TSP Inject, intravenously, once for 1 dose. No IV access, insert saline lock prior to the beginning of sedation, infusion, injection of imaging exam. Discontinue saline lock post exam. If Pt. has a central line or IVAD, may access for administration according to line specific nursing protocol. Once exam is complete flush line and de-access according to line specific nursing protocol in the MR contrast administration guidelines link. iv contrast (will be provided with radiology test) MRI LSP Inject, intravenously, once for 1 dose. No IV access, insert saline lock prior to the beginning of sedation, infusion, injection of imaging exam. Discontinue saline lock post exam. If Pt. has a central line or IVAD, may access for administration according to line specific nursing protocol. Once exam is complete flush line and de-access according to line specific nursing protocol in the MR contrast administration guidelines link. Past Medical History: PAST MEDICAL HISTORY Diagnosis Date ADHD (attention deficit hyperactivity disorder) Depression affecting in second trimester, antepartum (FORM[facility]LY [facility]) 05/22/2024 May 22, 2024 Initial Office Visit from 03/27/2024 in OB/Gynecology Routine Office Visit from 05/22/2024 in OB/Gynecology 03/24/2024 03/27/2024 05/22/2024 1543 1125 1806 Depression Screening Over the past 2 weeks have you felt down, depressed, or hopeless? Negative Negative Positive - Further Testing Generalized anxiety disorder Hyperemesis gravidarum ([facility]) 03/27/2024 May 22, 2024 Significantly improving with Zofran pump and IV fluids. Toby Rome, HEAD SAWYER.HOG BUYER May 13, 2024 - Continues to experience severe nausea and vomiting - Minimal food/water intake - Phenergan providing some relief - Recommend Zofran pump, ordered. May 08, 2024 7% weight loss Tried going to ER, but was waiting for 4 hours so she left Vomits up to 10x per day NEGATIVE MEDICAL HISTORY normal color vision past medical history of age 2 years dermatoid - by her right eye contractions (HCC) 08/24/2024 Social History: SOCIAL HISTORY[1] Family History: Family History Problem Relation Age of Onset Allergies Father Cancer Maternal Grandmother Breast Cancer Maternal Grandmother BP 110/74 Pulse 73 Resp 12 Wt 75.8 kg (167 lb) LMP 02/13/2025 (Exact Date) SpO2 98% BMI 28.44 kg/m? General: Awake, (more content not included)...[facility] 04-14-2025 History of Present illness Narrative* Diony Ferreira MD - 04/14/2025 5:02 PM EDT Images from the original note were not included. Family Medicine OUTPATIENT VISIT April 14, 2025 CC: Depression follow up HPI: 20 year old female patient with a history of , , delivered via at [facility] on 10/22/24. 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 HOMAR on 02/25/25 with myself. At that time, she had post depression. Consulted psychiatry and increased sertraline to 100mg Consulted psychology. Also had pain at site of epidural with leg paresthesia though in upper thigh so ordered MRI. Interval events Patient now . Advised to continue sertraline. Established with panel sewer. ED visit 04/08. Hcg 989, US did now show pregancy bu expected at this HCG. Feels like mood is better. Still having some low mood but no more TSH. Anhedonia has resolved. Sleep is poor. Fatigued during day. Chronic insomnia. Concentration is so so. Self esteem is improved. Anxiety is improved a little bit. Still having nausea and emesis. Zofran is helping somewhat. Using zofran ATC. Having emesis about five times per day. Abdominal pain is improved today. Has a rash between her fingers. Noone else with a rash like this. Only on one hand. Scented soaps make it worse. Itchy. Not painful. Not anywhere else. Review of Systems PAIN ASSESSMENT: Negative for pain, history of chronic pain, or current treatment for a chronic pain condition. GENERAL: No weight loss, or fevers HEENT: Negative for frequent or significant headaches RESPIRATORY: Negative for cough, wheezing, shortness of breath CARDIOVASCULAR: Negative for chest pain, palpitations, PND or orthopnea GI: as above : No history of dysuria, frequency, urgency, or change in urine appearance NEURO: No history of headaches, numbness, weakness, or changes to vision or hearing Health maintenance: Meningococcal B Vaccine(1 of 2 - Standard) Never done Allergies: ALLERGIES No Known Allergies Medications: ondansetron (ZOFRAN) 4 mg tablet Take 1 tablet by mouth every 8 hours as needed for nausea/vomiting. sertraline (ZOLOFT) 100 mg tablet Take 1 tablet by mouth once daily. hydrocortisone 1 % ointment Apply to affected area two times a day for 21 days. Apply twice daily for 2 weeks then daily for 1 week iv contrast (will be provided with radiology test) MRI TSP Inject, intravenously, once for 1 dose. No IV access, insert saline lock prior to the beginning of sedation, infusion, injection of imaging exam. Discontinue saline lock post exam. If Pt. has a central line or IVAD, may access for administration according to line specific nursing protocol. Once exam is complete flush line and de-access according to line specific nursing protocol in the MR contrast administration guidelines link. iv contrast (will be provided with radiology test) MRI LSP Inject, intravenously, once for 1 dose. No IV access, insert saline lock prior to the beginning of sedation, infusion, injection of imaging exam. Discontinue saline lock post exam. If Pt. has a central line or IVAD, may access for administration according to line specific nursing protocol. Once exam is complete flush line and de-access according to line specific nursing protocol in the MR contrast administration guidelines link. Past Medical History: PAST MEDICAL HISTORY Diagnosis Date ADHD (attention deficit hyperactivity disorder) Depression affecting in second trimester, antepartum (HCC) 05/22/2024 May 22, 2024 Initial Office Visit from 03/27/2024 in OB/Gynecology Routine Office Visit from 05/22/2024 in OB/Gynecology 03/24/2024 03/27/2024 05/22/2024 6846 [id number] Depression Screening Over the past 2 weeks have you felt down, depressed, or hopeless? Negative Negative Positive - Further Testing Generalized anxiety disorder Hyperemesis gravidarum (HCC) 03/27/2024 May 22, 2024 Significantly improving with Zofran pump and IV fluids. Toby Rome APRN.HOG BUYER May 13, 2024 - Continues to experience severe nausea and vomiting - Minimal food/water intake - Phenergan providing some relief - Recommend Zofran pump, ordered. 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 No abnormal posturing or positioning. Speech is normal. Strength grossly intact. RESP: Clear lungs bilateral with good air entry, No increased work of breathing CVS: RRR, No murmur. Pulses 2+. GI: Abdomen is soft, non distended, non tender. No masses or hepatomegaly appreciated. Skin/Other: No rashes or lesions. HEENT: pupils equal Extremities: No peripheral edema, swelling or erythema of lower extremities. Labs: Reviewed the following: Labs in process Imaging: Reviewed the following: NA Assessment/Plan: ASSESSMENT/PLAN: 1. Chronic insomnia - ICD9: 780.52, ICD10: F51.04 (primary diagnosis) Chronic insomnia which is likely exacerbating MDD - sleep CBT 2. Eczema, unspecified type - ICD9: 692.9, ICD10: L30.9 - discussed skin care of rash - follow up if symptoms persist or worsen. - HYDROCORTISONE 1 % TOPICAL OINTMENT -vaseline/aquaphor BID to prevent flares -hypoallergenic soaps 3. Depression, unspecified depression type - ICD9: 311, ICD10: F32.A Controlled Continue zoloft 100 Encouraged her to establish with psychology 4. Hyperemesis gravidarum (HCC) - ICD9: 643.00, ICD10: O21.0 Uncontrolled On zofran Will reach out to OB to see if she can be seen earlier Continue zofran Discussed s/s that should prompt ED presentation Diony Ferreira Remainder of plan including medications to be continued as prior to this visit unless noted above. I will reach out if lab testing or imaging is abnormal and requires a change in the plan discussed above. Otherwise, we can review results at follow up. I discussed this with the patient and they arein agreement. Discussed with patient the importance of continuity of care. Follow up appointments as scheduled below. We discussed returning sooner if symptoms should worsen or not improve as expected as discussed during our appointment. Symptoms that should prompt escalation of care that we discussed include worsening SI, n/v worsening and inability to remain hydrated Diony Ferreira MD Internal Medicine and Pediatrics [facility] 04/14/2025 5:40 PM Portions of note generated prior to visit. History of illness, past medical and surgical history, family and social history, medications, allergies, labs and imaging reviewed during visit and are updated as appropriate following visit. I spent 40 minutes in the visit, with more than 50% of the total [id number] time of the visit in counseling / coordination of care. Future Appointments Date Time Provider Department Center 04/29/2025 2:45 PM Ene King APRN.HOG BUYER [facility] 05/12/2025 3:30 PM MRI RADIO [facility].5T[facility] 05/12/2025 4:00 PM MRI RADIO [facility] (I-STAT/1.5T) [facility] 07/16/2025 4:40 PM Diony Ferreira MD [facility] [1] Social History Tobacco Use Smoking status: Never Smokeless tobacco: Never Tobacco comments: no smoking in home Vaping Use Vaping status: Former Quit date: 03/08/2024 Substance Use Topics Alcohol use: Not Currently Comment: no alcohol use in home Drug use: Never documented in [facility] encounter[facility]08-[facility]25 Telephone encounter Note * Telephone Encounter - Edilberto Bailey RN - 04/09/2025 1:51 PM EDT Patient notified. She will get repeat hcg quant drawn tomorrow. Initial hcg quant was 989 at [facility] on 04/08/25. Edilberto Bailey RN [facility]08-22-2025 Miscellaneous Notes* Telephone Encounter - Edilberto Bailey RN - 04/09/2025 1:51 PM EDT Patient notified. She will get repeat hcg quant drawn tomorrow. Initial hcg quant was 989 at [facility] on 04/08/25. Edilberto Bailey RN * Telephone Encounter - Seth Castro APRN.CNM - 04/09/2025 12:13 PM EDT Reviewed ER report. HCG level is 989 which is positive. This HCG level is too low to warrant anything to be seen via ultrasound which they were not able to see in ER. It is recommended that patient follow up with repeat HCG level in 2 days and will follow up with patient next week. Please review bleeding precautions and when she would need to return to ER. We will need to see how her HCG levels trend. Keep NOB. Seth Castro APRN.CNM * Telephone Encounter - Matt Lewis RN - 04/09/2025 11:55 AM EDT Patient calling stating she went to the [facility] ER yesterday for abdominal pain and was told that she needed to follow up in our office. Patient states blood work in ER was showing that she is only around 4 weeks, but states she should be around 8 weeks. Patient had blood work done at [facility] ER, not [facility] as ordered. Patient states she is still having LLQ pain that she rates at a 6 out of 10, describes as a constant sharp stabbing that increases with movement. Per patient they did not really do anything in the ER, was told she was 4 weeks according to blood work. Patient states she also had an ultrasound, but was told that she was to early and were not able to see anything. Denies any bleeding. Patient does have New OB scheduled for 04/29. ER notes printed from [facility], please review and advise on plan of care. See also below note from from . Matt Lewis RN * Telephone Encounter - Matt Lewis RN - 04/09/2025 11:54 AM EDT Images from the original note were not included. Suellen Cortes MD to Seth Castro APRN.Katina Garvin MD 04/08/25 2:34 PM FYI early with LLQ pain. She just delivered only a few months ago. Looks like she was still when she had a visit in December for missed menses. test was negative at that time. Most recent note with [facility] says regular periods with an LMP but implantation bleeding that she thought was a period, so not sure about how regular her periods are. I ordered a HCG quant to get anidea of where we are at. If high she'll need to schedule a pelvic US. If not high I already placed order for a repeat Saturday * Telephone Encounter - Carine Doherty RN - 04/08/2025 4:35 PM EDT Pt did read [employer] message sent to her on 04/08/25. Carine Doherty RN * Telephone Encounter - Carine Doherty RN - 04/08/2025 1:54 PM EDT Left message for patient informing her [employer] message was going to be sent and to let our office know that she got the message. Carine Doherty RN * Telephone Encounter - Suellen Cortes MD - 04/08/2025 1:27 PM EDT Recommend HCG quant today and possibly Saturday depending on level. To go to ER with severe pain orheavy bleeding. Give ectopic precautions * Telephone Encounter - Edilberto Bailey RN - 04/08/2025 11:47 AM EDT LMP 02/09/25 - 8w2d Patient calling in c/o LLQ pain that started this morning and seems to be getting worse. Sharp painrating 5/10 on pain scale currently. No bleeding or other concners. She has not been seen for yet, has not had u/s elsewhere. NOB scheduled for 04/29/25. No available appts today with any pro vider. Please advise. Edilberto Bailey RN documented in this encounterWay[facility]08-22-2025 Telephone encounter Note * Telephone Encounter - Seth Castro APRN.CNM - 04/09/2025 12:13 PM EDT Reviewed ER report. HCG level is 989 which is positive. This HCG level is too low to warrant anything to be seen via ultrasound which they were not able to see in ER. It is recommended that patient follow up with repeat HCG level in 2 days and will follow up with patient next week. Please review bleeding precautions and when she would need to return to ER. We will need to see how her HCG levels trend. Keep NOB. Seth Castro APRN.CNM [facility] Work Phone: [phone]) 460-908908-22-2025 Telephone encounter Note* Telephone Encounter - Matt Lewis RN - 04/09/2025 11:55 AM EDT Patient calling stating she went to the [facility] ER yesterday for abdominal pain and was told that she needed to follow up in our office. Patient states blood work in ER was showing that she is only around 4 weeks, but states she should be around 8 weeks. Patient had blood work done at [facility] ER, not [facility] as ordered. Patient states she is still having LLQ pain that she rates at a 6 out of 10, describes as a constant sharp stabbing that increases with movement. Per patient they did not really do anything in the ER, was told she was 4 weeks according to blood work. Patient states she also had an ultrasound, but was told that she was to early and were not able to see anything. Denies any bleeding. Patient does have New OB scheduled for 04/29. ER notes printed from [employer], please review and advise on plan of care. See also below note from from . Matt Lewis RN [facility]08-22-2025 Telephone encounter Note* Telephone Encounter - Matt Lewis RN - 04/09/2025 11:54 AM EDT Images from the original note were not included. Suellen Cortes MD to Seth Castro APRN.Katina Garvin MD 04/08/25 2:34 PM FYI early with LLQ pain. She just delivered only a few months ago. Looks like she was still when she had a visit in December for missed menses. test was negative at that time. Most recent note with Paradise says regular periods with an LMP but implantation bleeding that she thought was a period, so not sure about how regular her periods are. I ordered a HCG quant to get anidea of where we are at. If high she'll need to schedule a pelvic US. If not high I already placed order for a repeat Saturday T [facility]08-21-2025 Radiology Diagnostic study note [facility] Imaging Services [address] [place], [place] [id number] Transvaginal w/Preg US MR#: [id number] Acct: [id number] Name: ZAIN ROSE Rep #: [id number] 10 : 2005 F 20 From: Ulises Nova MD PCP: Dr. Halie Butts DO Status: REG ER Study:Transvaginal w/Preg US Date of Exam: 04/08/25 Exam# [id number] Ordering Dr: Mary Maguire PROCEDURE: TRANSVAGINAL W/PREG US 04/08/2025 REASON FOR EXAM: ABDOMINAL PAIN TECHNIQUE: TRANSVAGINAL W/PREG US FINDINGS No visualized intrauterine . No visualized gestational sac. Uterus measures 8.7 x 5.4 x 4.5 cm. No fibroids. Endometrial thickness of 18 mm. Minimal free fluidin the cul-de-sac. Right ovary measures 2.0 x 1.8 x 1.7 cm in the left ovary measures 3.2 x 2.5 x 2.2 cm. Both within preserved vascular flow. US/Transvaginal w/Preg US IMPRESSION: No visualized intrauterine . Reading Location: [id number] CC: Dr. Halie Btuts DO; VALERIA Rodriguez ~ Business Support Assistant: Signed [facility]08-21-2025 Telephone encounter Note* Telephone Encounter - Carine Doherty RN - 04/08/2025 4:35 PM EDT Pt did read [employer] message sent to her on 04/08/25. Carine Doherty RN [facility]08-21-2025 Telephone encounter Note* Telephone Encounter - Carine Doherty RN - 04/08/2025 1:54 PM EDT Left message for patient informing her mychart message was going to be sent and to let our office know that she got the message. Carine Doherty RN [facility]08-21-2025 Telephone encounter Note* Telephone Encounter - Suellen Cortes MD - 04/08/2025 1:27 PM EDT Recommend HCG quant today and possibly Saturday depending on level. To go to ER with severe pain orheavy bleeding. Give ectopic precautions [facility]08-21-2025 Telephone encounter Note* Telephone Encounter - Edilberto Bailey RN - 04/08/2025 11:47 AM EDT LMP 02/09/25 - 8w2d Patient calling in c/o LLQ pain that started this morning and seems to be getting worse. Sharp painrating 5/10 on pain scale currently. No bleeding or other concners. She has not been seen for yet, has not had u/s elsewhere. NOB scheduled for 04/29/25. No available appts today with any pro vider. Please advise. Edilberto Bailey RN [facility]08-17-2025 Telephone encounter Note* Telephone Encounter - Alison Grimm MD - 04/04/2025 11:52 AM EDT Patient called with worsening nausea and vomiting. Hx of Hyperemesis requiring zofran pump. Requesting zofran rx. [facility]08-17-2025 Miscellaneous Notes* Telephone Encounter - Alison Grimm MD - 04/04/2025 11:52 AM EDT Patient called with worsening nausea and vomiting. Hx of Hyperemesis requiring zofran pump. Requesting zofran rx. documented in this encounterWay[facility]-2025 NoteHNO ID: [id number] Author: PARADISE DIAZ APRN.HOG BUYER Service: ? Author Type: Nurse Practitioner Type: Progress Notes Filed: 04/02/2025 15:50 Note Text: Obstetrics and Gynecology [place] GRADUATE INTERN Visit Subjective Recording using ambient Har[employer]en software for draft documentation of the visit was discussed with the patient/authorized sales representative public utilities; all questions welcomed and answered. Patient/authorized sales representative public utilities agreed to proceed CHIEF COMPLAINT: CC: Patient is a 20-year-old female presenting for a test. HPI: HPI: : - Patient reports regular menstrual cycles and was surprised by a positive test, as multiple home tests were negative. - Last menstrual period was on February 09; initially thought implantation bleeding was a period. - Stopped when trying to conceive due to high-risk status. - Currently experiencing nausea and requests medication to manage symptoms. - Previously required a Zofran pump for nausea during last . - Currently taking Zoloft and inquires about its safety during . 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 Operator History LMP: 2025 (Exact Date), Unknown Age at Menarche: 13 Age at First : Age at Menopause: Corduroy Brusher Operator History Comments: Sexual Activity: Not Currently; Male Contraception: No contraception data on record PAST MEDICAL HISTORY Diagnosis Date ADHD (attention deficit hyperactivity disorder) Depression affecting in second trimester, antepartum (HCC) 05/22/2024 May 22, 2024 Initial Office Visit from 03/27/2024 in OB/Gynecology Routine Office Visit from 05/22/2024 in OB/Gynecology 03/24/2024 03/27/2024 05/22/2024 1543 1123 1507 Depression Screening Over the past 2 weeks have you felt down, depressed, or hopeless? Negative Negative Positive - Further Testing Generalized anxiety disorder Hyperemesis gravidarum (HCC) 03/27/2024 May 22, 2024 Significantly improving with Zofran pump and IV fluids. Toby Rome APRN.HOG BUYER May 13, 2024 - Continues to experience severe nausea and vomiting - Minimal food/water intake - Phenergan providing some relief - Recommend Zofran pump, ordered. May 08, 2024 7% weight loss Tried going to ER, but was waiting for 4 hours so she left Vomits up to 10x per day NEGATIVE MEDICAL HISTORY normal color vision past medical history of age 2 years dermatoid - by her right eye contractions (HCC) 08/24/2024 PAST SURGICAL HISTORY Procedure Laterality Date NEXPLANON REMOVAL Left 10/07/2023 PAST SURGICAL HISTORY OF surgery on eye FAMILY HISTORY Problem Relation Age of Onset Allergies Father Cancer Maternal Grandmother Breast Cancer Maternal Grandmother SOCIAL HISTORY[1] Current Outpatient Medications Medication Sig sertraline (ZOLOFT) 100 mg tablet Take 1 tablet by mouth once daily. No current facility-administered medications for this visit. ALLERGIES No Known Allergies REVIEW OF SYSTEMS: Gastrointestinal: (+) nausea Genitourinary: (+) amenorrhea Objective SENSITIVE EXAM: Sensitive exam not performed. PHYSICAL EXAM: BP 119/81 Wt 165 lb (74.8kg) LMP 2025 GENERAL: Pleasant; in no acute distress PULMONARY: normal inspiratory effort NEURO: alert and oriented x3 Assessment AND Plan ASSESSMENT AND PLAN: 1. Missed menses (N92.6) 2. Encounter for test, result positive ([facility]) (Z32.01) - Positive test result; LMP 02/09, currently 7 weeks and 3 days gestation; BOGDAN 11/16/2024. - Advised patient to continue sertraline throughout . - Recommended vitamin B6 and Unisom for nausea management. - Instructed patient to schedule a new OB appointment Paradise Diaz APRN.CNP Medical Decision Making: Problems: Low: Acute, uncomplicated illness or injury Data: Unique test(s) ordered: 1 Risk: Moderate: Drug management Medical Decision Making Level: 3 - Low [1] Social History Tobacco Use Smoking status: Never Smokeless tobacco: Never Tobacco comments: no smoking in home Vaping Use Vaping status: Former Quit date: 03/08/2024 Substance Use Topics Alcohol use: Not Currently Comment: no alcohol use in home [facility] History of Present illness Narrative* Paradise Diaz APRN.CNP - 04/02/2025 3:10 PM EDT Images from the original note were not included. Obstetrics and Gynecology [place] [employer] INTERN Visit Subjective Recording using ambient [employer] software for draft documentation of the visit was discussed with the patient/authorized sales representative public utilities; all questions welcomed and answered. Patient/authorized sales representative public utilities agreed to proceed CHIEF COMPLAINT: CC: Patient is a 20-year-old female presenting for a test. HPI: HPI: : - Patient reports regular menstrual cycles and was surprised by a positive test, as multiple home tests were negative. - Last menstrual period was on February 09; initially thought implantation bleeding was a period. - Stopped when trying to conceive due to high-risk status. - Currently experiencing nausea and requests medication to manage symptoms. - Previously required a Zofran pump for nausea during last . - Currently taking Zoloft and inquires about its safety during . 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 Operator History LMP: 2025 (Exact Date), Unknown Age at Menarche: 13 Age at First : Age at Menopause: Corduroy Brusher Operator History Comments: Sexual Activity: Not Currently; Male Contraception: No contraception data on record PAST MEDICAL HISTORY Diagnosis Date ADHD (attention deficit hyperactivity disorder) Depression affecting in second trimester, antepartum ([facility]) 05/22/2024 May 22, 2024 Initial Office Visit from 03/27/2024 in OB/Gynecology Routine Office Visit from 05/22/2024 in OB/Gynecology 03/24/2024 03/27/2024 05/22/2024 1543 1123 1507 Depression Screening Over the past 2 weeks have you felt down, depressed, or hopeless? Negative Negative Positive - Further Testing Generalized anxiety disorder Hyperemesis gravidarum ([facility]) 03/27/2024 May 22, 2024 Significantly improving with Zofran pump and IV fluids. Toby Rome, HEAD SAWYER.HOG BUYER May 13, 2024 - Continues to experience severe nausea and vomiting - Minimal food/water intake - Phenergan providing some relief - Recommend Zofran pump, ordered. May 08, 2024 7% weight loss Tried going to ER, but was waiting for 4 hours so she left Vomits up to 10x per day NEGATIVE MEDICAL HISTORY normal color vision past medical history of age 2 years dermatoid - by her right eye contractions (HCC) 08/24/2024 PAST SURGICAL HISTORY Procedure Laterality Date NEXPLANON REMOVAL Left 10/07/2023 PAST SURGICAL HISTORY OF surgery on eye FAMILY HISTORY Problem Relation Age of Onset Allergies Father Cancer Maternal Grandmother Breast Cancer Maternal Grandmother SOCIAL HISTORY[1] Current Outpatient Medications Medication Sig sertraline (ZOLOFT) 100 mg tablet Take 1 tablet by mouth once daily. No current facility-administered medications for this visit. ALLERGIES No Known Allergies REVIEW OF SYSTEMS: Gastrointestinal: (+) nausea Genitourinary: (+) amenorrhea Objective SENSITIVE EXAM: Sensitive exam not performed. PHYSICAL EXAM: BP 119/81 Wt 165 lb (74.8kg) LMP 2025 GENERAL: Pleasant; in no acute distress PULMONARY: normal inspiratory effort NEURO: alert and oriented x3 Assessment & Plan ASSESSMENT AND PLAN: 1. Missed menses (N92.6) 2. Encounter for test, result positive (HCC) (Z32.01) - Positive test result; LMP 02/09, currently 7 weeks and 3 days gestation; BOGD[facility] 11/16/2024. - Advised patient to continue sertraline throughout . - Recommended vitamin B6 and Unisom for nausea management. - Instructed patient to schedule a new OB appointment Paradise Diaz APRN.CNP Medical Decision Making: Problems: Low: Acute, uncomplicated illness or injury Data: Unique test(s) ordered: 1 Risk: Moderate: Drug management Medical Decision Making Level: 3 - Low [1] Social History Tobacco Use Smoking status: Never Smokeless tobacco: Never Tobacco comments: no smoking in home Vaping Use Vaping status: Former Quit date: 03/08/2024 Substance Use Topics Alcohol use: Not Currently Comment: no alcohol use in home Drug use: Never documented in [facility] Telephone encounter Note * Telephone Encounter - Diony Ferreira MD - 03/03/2025 5:05 PM EDT Ordering test [facility]07-16-2025 Miscellaneous Notes* Telephone Encounter - Diony Ferreira MD - 03/03/2025 5:05 PM EDT Ordering test documented in this encounterWay[facility]-2025 Telephone encounter Note * Telephone Encounter - Evelyn Draper, ARTHUR - 03/03/2025 4:51 PM EDT Your patient arrived today for MRI ordered, we noticed she answered yes to and our [facility]siteRad requested the patient be reschedule for MRI to verify . Please advise. [facility]07-16-2025 Miscellaneous Notes* Telephone Encounter - Evelyn Draper PSS - 03/03/2025 4:51 PM EDT Your patient arrived today for MRI ordered, we noticed she answered yes to and our onsite[facility] requested the patient be reschedule for MRI to verify . Please advise. documented in this encounterWayne [facility]07-10-2025 Instructions* Patient Instructions* Diony Ferreira MD - 02/25/2025 5:37 PM EDT Please see psychiatry and psychology We increased your zoloft. If you have any thoughts of planning to hurt yourself, please go to the emergency room. We ordered spinal imaging and blood work. documented in this encounterWay[facility]-2025 History of Present illness Narrative* Diony Ferreira MD - 02/25/2025 5:00 PM EDT Images from the original note were not included. Family Medicine OUTPATIENT VISIT February 25, 2025 CC: Depression HPI: 20 year old female patient with a history of , , delivered via at [facility] on 10/22/24. Post delivery course has been complicated by mastitis treated w/ Keflex, hyperemesis gravidarum, and post depression treated with zoloft 50mg OD ADHD not on meds. She presents due to c/f post depression. Thinks that zoloft has been helping. Thoughts that she would be better off but never any actual planning. States I would never do it. Says if she ever did have thoughts of wanting to actually kill herself, she would tell her partner and would go to the ED. Mood has overall recently been getting worse over last few weeks, as have thoughts that things would be better if she were not here. No obvious trigger. Never any thoughts of wanting to hurt others including never any thoughts of wanting to harm her child. No desire to self harm in non fatal method. Previously was on clonidine for sleep prior to . Not currently or planning to resume. Psychosis: None Delusions: None Had longstanding depression prior to delivery. No episodes of magdalena. Also generalized anxiety. No therapy currently. [facility] Not seeing psychiatry. Feels she does have good support at home. She also endorses back pain at side of epidural that has been worsening over last weeks. No drainage or erythema. No radiation of pain. No pain elsewhere. Pain is midline at exact site of epidural placement. No fevers or chills. No hx of IVDU. She is endorsing paresthesia of her right anterior thigh present since that comes and goes but denies any leg or arm weakness, saddle anesthesia, bowel or bladder changes. Also no ZENDEJAS, confusion, speech changes, facial droop, vision or hearing changes. PHQ-9 06/02/2020 07/04/2022 02/24/2025 PHQ-9 Scores Feeling down, depressed, irritable, or hopeless? - Nearly every day - Little interest or pleasure in doing things? - More than half the days - Trouble falling asleep, staying asleep, or sleeping too much? - Nearly every day - Poor appetite, weight loss, or overeating? - More than half the days - Feeling tired, or having little energy? - More than half the days - Feeling bad about yourself - or feeling that you are a failure, or have let yourself or your familydown? - Nearly every day - Trouble concentrating on things like school work, reading, or watching TV? - More than half the days - Moving or speaking so slowly that other people could have noticed? Or the opposite- being so fidgety or restless that you have been moving around a lot more than usual? - Nearly every day - Thoughts that you would be better off , or of hurting yourself in some way? - More than half the days - In the PAST YEAR have you felt depressed or sad most days, even if you felt okay sometimes? - Yes - If you are experiencing any of the problems on this questionnaire, how difficult have these problems made it for you to do your work, take care of things at home, or get along with other people? - Somewhat difficult - Has there been a time in the PAST MONTH when you have had serious thoughts about ending your life? - No - Have you EVER, in your WHOLE LIFE, tried to kill yourself or made a suicide attempt? - No - PHQ-A Score - 22 - Little interest or pleasure in doing things: Not at all - Several days Feeling down, depressed, or hopeless: Not at all - Nearly every day Trouble falling or staying asleep, or sleeping too much - - Nearly every day Feeling tired or having little energy - - Nearly every day Poor appetite or overeating - - More than half the days Feeling bad about yourself - or that you are a failure or have let yourself or your family down - -Nearly every day Trouble concentrating on things, such as reading the newspaper or watching television - - More thanhalf the days Moving or speaking so slowly that other people could have noticed. Or the opposite - being so fidgety or restless that you have been moving around a lot more than usual - - More than half the days Thoughts that you would be better off , or of hurting yourself in some way - - More than half the days PHQ-9 Score - - 21 Details Proxy-reported Review of Systems PAIN ASSESSMENT: Negative for pain, history of chronic pain, or current treatment for a chronic pain condition. Pain at epidural site. No drainage from site. Pain has been getting worse. Pain is 5/10. GENERAL: No weight loss, or fevers HEENT: Negative for frequent or significant headaches RESPIRATORY: Negative for cough, wheezing, shortness of breath CARDIOVASCULAR: Negative for chest pain, palpitations, PND or orthopnea GI: diarrhea or abdominal pain. No VT bleeding or melana : No history of dysuria, frequency, urgency, or change in urine appearance NEURO: No history of headaches, numbness, weakness, or changes to vision or hearing. Numbness over anterior thigh since dlivery.. No bowel or bladder changes. No saddle anesthesia. Health maintenance: Meningococcal B Vaccine(1 of 2 - Standard) Never done Allergies: ALLERGIES No Known Allergies Medications: sertraline (ZOLOFT) 100 mg tablet Take 1 tablet by mouth once daily. Past Medical History: PAST MEDICAL HISTORY Diagnosis Date ADHD (attention deficit hyperactivity disorder) Depression affecting in second trimester, antepartum ([facility]) 05/22/2024 May 22, 2024 Initial Office Visit from 03/27/2024 in OB/Gynecology Routine Office Visit from 05/22/2024 in OB/Gynecology 03/24/2024 03/27/2024 05/22/2024 1543 1123 1507 Depression Screening Over the past 2 weeks have you felt down, depressed, or hopeless? Negative Negative Positive - Further Testing Generalized anxiety disorder Hyperemesis gravidarum ([facility]) 03/27/2024 May 22, 2024 Significantly improving with Zofran pump and IV fluids. Toby Rome APRN.HOG BUYER May 13, 2024 - Continues to experience severe nausea and vomiting - Minimal food/water intake - Phenergan providing some relief - Recommend Zofran pump, ordered. May 08, 2024 7% weight loss Tried going to ER, but was waiting for 4 hours so she left Vomits up to 10x per day NEGATIVE MEDICAL HISTORY normal color vision past medical history of age 2 years dermatoid - by her right eye contractions ([facility]) 08/24/2024 Social History: Social History Tobacco Use Smoking status: Never Smokeless tobacco: Never Tobacco comments: no smoking in home Vaping Use Vaping status: Former Quit date: 03/08/2024 Substance Use Topics Alcohol use: Not Currently Comment: no alcohol use in home Drug use: Never Rare ETOH use. Denies all else. 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 No abnormal posturing or positioning. Speech is normal. CN all intact. There is no paresthesia evident on my exam There is no saddle anesthesia Motor exam including LE is 5/5 Sensation all grossly intact. Reflexes +2 upper and lower extremities Exam of her spine remarkable for tenderness over palpation of lower thoracic spine around T9-12 butno erythema, drainage, or visible abnormalities and normal forward flexion. RESP: Clear lungs bilateral with good air entry, No increased work of breathing CVS: RRR, No murmur. Pulses 2+. GI: Abdomen is soft, non distended, non tender. No masses or hepatomegaly appreciated. Skin/Other: No rashes or lesions. HEENT: pupils equal Extremities: No peripheral edema, swelling or erythema of lower extremities. Labs: Reviewed the following: Pertinent labs as outlined above Imaging: Reviewed the following: Reviewed recent pertinent imaging Assessment/Plan: ASSESSMENT/PLAN: 1. mood disorder (HCC) - ICD9: 648.44, 296.90, ICD10: O90.6 (primary diagnosis) Worsening depression on hx of longstanding MDD and anxiety disorder. Having SI without any plan or intent and does not appear to post immediate risk to self or others, and states she wouldtell her partner if she was to have any planning and would present to ED. She appears to have good social support at home. Worsening of symptoms likely iso post period and life stressors. Will send labs to r/o organic pathology, and will increase sertraline as she feels it has been helpful. We did discuss the theoretical risk of increased SI, and that if she should have any worsening of symptoms she should present to the ED if they include any planning. Did discuss she should reach out if she becomes for discussion on whether to potentially transition to alternative SSRI -Will also refer to psychology and psychiatry given persistence and degree of depressive symptoms. - COMPLETE BLOOD COUNT AND DIFFERENTIAL - COMPREHENSIVE METABOLIC PANEL - VITAMIN D 25 HYDROXY - TSH W/REFLEX FT4 - CONSULT TO PSYCHIATRY - SERTRALINE 100 MG TABLET - IRON AND TIBC - FERRITIN - CONSULT TO PSYCHOLOGY 2. Chronic midline thoracic back pain - ICD9: 724.1, 338.29, ICD10: M54.6, G89.29 Chronic midline thoracic back pain at site of epidural with upper thigh paresthesia on right present since placement of epidural. No other red flag s/s such as fever, symptoms of cauda equina or cord compression. Exam today is unremarkable except for midline tenderness. Possibly soft tissue injury vs other non specific msk pain, though given pain at site of prior epidural and complaint of neurological symptom, will assess with labs and imaging to rule out epidural abscess or structural pathology. Did discuss these symptoms and that she should present to ED should they occur. Will assess labs as above and will rule out epidural abscess or other infection with imaging. - MRI THORACIC SPINE WO IVCON - MRI LUMBAR SPINE WO IVCON Diony Ferreira Remainder of plan including medications to be continued as prior to this visit unless noted above. I will reach out if lab testing or imaging is abnormal and requires a change in the plan discussed above. Otherwise, we can review results at follow up. I discussed this with the patient and they arein agreement. Discussed with patient the importance of continuity of care. Follow up appointments as scheduled below. We discussed returning sooner if symptoms should worsen or not improve as expected as discussed during our appointment. Symptoms that should prompt escalation of care that we discussed include reviewof s/s of spinal cord compression and infection, any suicidal ideation with any intent. Diony Ferreira MD Internal Medicine and Pediatrics [facility] 02/25/2025 5:57 PM Portions of note generated prior to visit. History of illness, past medical and surgical history, family and social history, medications, allergies, labs and imaging reviewed during visit and are updated as appropriate following visit. Future Appointments Date Time Provider Department Center 03/03/2025 3:30 PM [facility] 03/03/2025 4:00 PM MRI [facility] (I-STAT/1.5T) [facility] 04/14/2025 5:00 PM Diony Ferreira MD [facility] I spent a total of 45 minutes on the date of the service which included preparing to see the patient, kave-md-asrt patient care, and completing clinical documentation. documented in this encounterWayne [facility]07-10-2025 NoteHNO ID: [id number] Author: DIONY FERREIRA MD Service: ? Author Type: Physician Type: Progress Notes Filed: 02/26/2025 12:25 Note Text: Family Medicine OUTPATIENT VISIT February 25, 2025 CC: Depression HPI: 20 year old female patient with a history of , , delivered via at [facility] on 10/22/24. Post delivery course has been complicated by mastitis treated w/ Keflex, hyperemesis gravidarum, and post depression treated with zoloft 50mg OD ADHD not on meds. She presents due to c/f post depression. Thinks that zoloft has been helping. Thoughts that she would be better off but never any actual planning. States I would never do it. Says if she ever did have thoughts of wanting to actually kill herself, she would tell her partner and would go to the ED. Mood has overall recently been getting worse over last few weeks, as have thoughts that things would be better if she were not here. No obvious trigger. Never any thoughts of wanting to hurt others including never any thoughts of wanting to harm her child. No desire to self harm in non fatal method. Previously was on clonidine for sleep prior to . Not currently or planning to resume. Psychosis: None Delusions: None Had longstanding depression prior to delivery. No episodes of magdalena. Also generalized anxiety. No therapy currently. None since [facility]. Not seeing psychiatry. Feels she does have good support at home. She also endorses back pain at side of epidural that has been worsening over last weeks. No drainage or erythema. No radiation of pain. No pain elsewhere. Pain is midline at exact site of epidural placement. No fevers or chills. No hx of IVDU. She is endorsing paresthesia of her right anterior thigh present since that comes and goes but denies any leg or arm weakness, saddle anesthesia, bowel or bladder changes. Also no ZENDEJAS, confusion, speech changes, facial droop, vision or hearing changes. PHQ-9 06/02/2020 07/04/2022 02/24/2025 PHQ-9 Scores Feeling down, depressed, irritable, or hopeless? - Nearly every day - Little interest or pleasure in doing things? - More than half the days - Trouble falling asleep, staying asleep, or sleeping too much? - Nearly every day - Poor appetite, weight loss, or overeating? - More than half the days - Feeling tired, or having little energy? - More than half the days - Feeling bad about yourself - or feeling that you are a failure, or have let yourself or your family down? - Nearly every day - Trouble concentrating on things like school work, reading, or watching TV? - More than half the days - Moving or speaking so slowly that other people could have noticed? Or the opposite- being so fidgety or restless that you have been moving around a lot more than usual? - Nearly every day - Thoughts that you would be better off , or of hurting yourself in some way? - More than half the days - In the PAST YEAR have you felt depressed or sad most days, even if you felt okay sometimes? - Yes - If you are experiencing any of the problems on this questionnaire, how difficult have these problems made it for you to do your work, take care of things at home, or get along with other people? - Somewhat difficult - Has there been a time in the PAST MONTH when you have had serious thoughts about ending your life? - No - Have you EVER, in your WHOLE LIFE, tried to kill yourself or made a suicide attempt? - No - PHQ-A Score - 22 - Little interest or pleasure in doing things: Not at all - Several days Feeling down, depressed, or hopeless: Not at all - Nearly every day Trouble falling or staying asleep, or sleeping too much - - Nearly every day Feeling tired or having little energy - - Nearly every day Poor appetite or overeating - - More than half the days Feeling bad about yourself - or that you are a failure or have let yourself or your family down - - Nearly every day Trouble concentrating on things, such as reading the newspaper or watching television - - More than half the days Moving or speaking so slowly that other people could have noticed. Or the opposite - being so fidgety or restless that you have been moving around a lot more than usual - - More than half the days Thoughts that you would be better off , or of hurting yourself in some way - - More than half the days PHQ-9 Score - - 21 Details Proxy-reported Review of Systems PAIN ASSESSMENT: Negative for pain, history of chronic pain, or current treatment for a chronic pain condition. Pain at epidural site. No drainage from site. Pain has been getting worse. Pain is 5/10. GENERAL: No weight loss, or fevers HEENT: Negative for frequent or significant headaches RESPIRATORY: Negative for cough, wheezing, shortness of breath CARDIOVASCULAR: Negative for chest pain, palpitations, PND or orthopnea GI: diarrhea or abdominal pain. No P (more content not included)...[facility]07-09-2025 Telephone encounter Note* Telephone Encounter - Nicolle Francisco RN - 02/24/2025 3:31 PM EDT scheduled Nicolle Francisco RN [facility]07-09-2025 Miscellaneous Notes* Telephone Encounter - Nicolle Francisco RN - 02/24/2025 3:31 PM EDT scheduled Nicolle Francisco RN * Telephone Encounter - Nicolle Francisco RN - 02/24/2025 2:52 PM EDT PSS calling to schedule Nicolle Francisco RN * Telephone Encounter - Kuldeep Khan MD - 02/24/2025 2:38 PM EDT Telephone on 02/23/25 ESTABLISH WITH PRIMARY CARE - NEW PATIENT Kuldeep Khan MD * Telephone Encounter - Stefanie Stacy MA - 02/23/2025 6:17 PM EDT Please put a consult in for patient to ELIZABETH to family [facility] Stefanie Stacy MA documented in this encounterWayne [facility]07-09-2025 Telephone encounter Note * Telephone Encounter - Nicolle Francisco RN - 02/24/2025 2:52 PM EDT PSS calling to schedule Nicolle Francisco RN [facility]07-09-2025 Telephone encounter Note* Telephone Encounter - Kuledep Khan MD - 02/24/2025 2:38 PM EDT Telephone on 02/23/25 ESTABLISH WITH PRIMARY CARE - NEW PATIENT Kuldeep Khan MD [facility]07-08-2025 Telephone encounter Note* Telephone Encounter - Stefanie Stacy MA - 02/23/2025 6:17 PM EDT Please put a consult in for patient to ELIZABETH to [facility] Stefanie Stacy MA [facility]05-27-2025 Instructions* Patient Instructions* Lisa Gregory APRN.HOG BUYER - 01/12/2025 7:00 PM EDT Patient presents with: Breast Problem: Mastitis x 1 day left breast-also missed eriod I recommend you follow up with your Primary Care Provider (Physician, Nurse Practitioner, or Physician Microfilming Document Preparer). YOU SHOULD SEEK MEDICAL ATTENTION IMMEDIATELY AT THE NEAREST EMERGENCY DEPARTMENT IF ANY OF THE FOLLOWING OCCURS Call 911 if you have chest pain, heaviness or discomfort Fever (temperature higher than 100.4 F / 38 C) and it doesn't go away or gets worse after 2-3 days of antibiotics Unusual or increasing pain Lightheadedness Feeling sicker at any time or not getting better as expected Can't catch your breath or have shortness of breath Were seen for eye problems and have eye pain, changes/blurring of vision, or the light hurts your eyes and/or you have a fever Were seen for wound/skin infection issues and your wound/infection has increasing redness/swelling/pain, red streaking towards your heart, or green/yellow drainage Were seen for a headache and have any worsening of headache/dizziness or you develop a stiff neck or any other concerns about your headache Were seen for stomach/abdominal complaints and your diarrhea/vomiting/pain worsens and/or you don'turinate in an 8 hour period of time Develop swelling of your lips/face/tongue/throat or think you are having an allergic reaction to any medications Please read all pharmacy handouts regarding possible medication side effects and/or adverse reactions. Call your Primary Care Provider with any questions or concerns. Follow up with your Primary Care Provider if you require any follow up care. Urgent/Express Care and Walk In Clinics do not provide follow up care. documented in this encounterWayne Healthcare [facility] Campus05-27-2025 NoteHNO ID: [id number] Author: LISA GREGORY APRN.CNP Service: ? Author Type: Nurse Practitioner Type: Progress Notes Filed: 01/12/2025 19:00 Note Text: [facility] Subjective Zain Rose is a 19 year old female. Patient presents with: Breast Problem: Mastitis x 1 day left breast-also missed eriod HPI Patient is a 19-year-old female that is recently . She had a delivery on 10/22/24. She is currently trying to stop breast-feeding and had some left pain in her breast and mild redness. She denies any fever or bodyaches. She states she is also started supposed to start her period today. And would like a test. She denies any abdominal pain, no frequency in urination, or back pain today. Review of Systems Constitutional: Negative for fever. Genitourinary: Negative for difficulty urinating, flank pain, frequency, pelvic pain, vaginal bleeding, vaginal discharge and vaginal pain. Skin: Positive for rash. Psychiatric/Behavioral: Negative for agitation and behavioral problems. Objective BP 124/82 Pulse 90 Temp 37.1 ?C (98.7 ?F) (Tympanic) Resp 18 Wt 70.5 kg (155 lb 6.8 oz) LMP 11/23/2024 (Exact Date) SpO2 99% BMI 25.09 kg/m? PAST MEDICAL HISTORY Diagnosis Date ADHD (attention deficit hyperactivity disorder) Depression affecting in second trimester, antepartum (HCC) 05/22/2024 May 22, 2024 Initial Office Visit from 03/27/2024 in OB/Gynecology Routine Office Visit from 05/22/2024 in OB/Gynecology 03/24/2024 03/27/2024 05/22/2024 [id number] Depression Screening Over the past 2 weeks have you felt down, depressed, or hopeless? Negative Negative Positive - Further Testing Generalized anxiety disorder Hyperemesis gravidarum (HCC) 03/27/2024 May 22, 2024 Significantly improving with Zofran pump and IV fluids. Toby Rome, HEAD SAWYER.HOG BUYER May 13, 2024 - Continues to experience severe nausea and vomiting - Minimal food/water intake - Phenergan providing some relief - Recommend Zofran pump, ordered. May 08, 2024 7% weight loss Tried going to ER, but was waiting for 4 hours so she left Vomits up to 10x per day NEGATIVE MEDICAL HISTORY normal color vision past medical history of age 2 years dermatoid - by her right eye contractions (HCC) 08/24/2024 PAST SURGICAL HISTORY Procedure Laterality Date NEXPLANON REMOVAL Left 10/07/2023 PAST SURGICAL HISTORY OF surgery on eye ALLERGIES Patient has no known allergies. MEDICATIONS sertraline (ZOLOFT) 50 mg tablet Take 1 tablet by mouth once daily. cephALEXin (KEFLEX) 500 mg capsule Take 1 capsule by mouth four times daily for 7 days. FAMILY HISTORY Problem Relation Age of Onset Allergies Father Breast Cancer Maternal Grandmother Social History Tobacco Use Smoking status: Never Smokeless tobacco: Never Tobacco comments: no smoking in home Vaping Use Vaping status: Former Quit date: 03/08/2024 Substance Use Topics Alcohol use: Not Currently Comment: no alcohol use in home Drug use: Never Physical Exam Vitals and nursing note reviewed. Constitutional: Appearance: Normal appearance. Cardiovascular: Rate and Rhythm: Normal rate and regular rhythm. Pulses: Normal pulses. Heart sounds: Normal heart sounds, S1 normal and S2 normal. Pulmonary: Effort: Pulmonary effort is normal. Breath sounds: Normal breath sounds. Chest: Chest wall: Tenderness present. No mass, swelling or edema. Breasts: Right: No bleeding, inverted nipple, mass, nipple discharge or skin change. Left: Normal. No bleeding, inverted nipple, mass or nipple discharge. Skin change: Mild erythema 2x2 cm non indurated left breast,. Abdominal: General: Abdomen is flat. Tenderness: There is no abdominal tenderness. There is no right CVA tenderness, left CVA tenderness, guarding or rebound. Lymphadenopathy: Upper Body: Right upper body: No supraclavicular or axillary adenopathy. Left upper body: No supraclavicular or axillary adenopathy. Neurological: Mental Status: She is alert. {ASSESSMENT/PLAN: 1. Missed period - ICD9: 626.4, ICD10: N92.6 (primary diagnosis) - Negative test, continue - HCG QUAL UR B/O - 2. Mastitis - ICD9: 611.0, ICD10: N61.0 - Will start on keflex follow up with OBGYN. - If worsening seek emergency care Lisa Gregory APRN.LUIS History and Record Review Clinical information obtained from an independent historian. History obtained from or confirmed by: parent. External record(s) reviewed: prior outpatient record. Findings from review of outpatient records: Previous charts reviewed Differential Diagnoses - Mastitis is more likely for the following reason(s): suggested by HANDP - Sepsis is less likely for the following reason(s): HANDP not suggestive - abscess is less likely for the following reason(s): HANDP not suggestive Disposition The patient was discharged. OTC (more content not included)...[facility]05-27-2025 History of Present illness Narrative* Lisa Gregory APRN.CNP - 01/12/2025 6:41 PM EDT Images from the original note were not included. [facility] Subjective Zain Rose is a 19 year old female. Patient presents with: Breast Problem: Mastitis x 1 day left breast-also missed eriod HPI Patient is a 19-year-old female that is recently . She had a delivery on 10/22/24. She is currently trying to stop breast-feeding and had some left pain in her breast and mild redness. She denies any fever or bodyaches. She states she is also started supposed to start her period today. And would like a test. She denies any abdominal pain, no frequency in urination, or back pain today. Review of Systems Constitutional: Negative for fever. Genitourinary: Negative for difficulty urinating, flank pain, frequency, pelvic pain, vaginal bleeding, vaginal discharge and vaginal pain. Skin: Positive for rash. Psychiatric/Behavioral: Negative for agitation and behavioral problems. Objective BP 124/82 Pulse 90 Temp 37.1 C (98.7 F) (Tympanic) Resp 18 Wt 70.5 kg (155 lb 6.8 oz) LMP11/23/2024 (Exact Date) SpO2 99% BMI 25.09 kg/m PAST MEDICAL HISTORY Diagnosis Date ADHD (attention deficit hyperactivity disorder) Depression affecting in second trimester, antepartum ([facility]) 05/22/2024 May 22, 2024 Initial Office Visit from 03/27/2024 in OB/Gynecology Routine Office Visit from 05/22/2024 in OB/Gynecology 03/24/2024 03/27/2024 05/22/2024 1543 [id number] 1507 Depression Screening Over the past 2 weeks have you felt down, depressed, or hopeless? Negative Negative Positive - Further Testing Generalized anxiety disorder Hyperemesis gravidarum ([facility]) 03/27/2024 May 22, 2024 Significantly improving with Zofran pump and IV fluids. Toby Rome APRN.HOG BUYER May 13, 2024 - Continues to experience severe nausea and vomiting - Minimal food/water intake - Phenergan providing some relief - Recommend Zofran pump, ordered. May 08, 2024 7% weight loss Tried going to ER, but was waiting for 4 hours so she left Vomits up to 10x per day NEGATIVE MEDICAL HISTORY normal color vision past medical history of age 2 years dermatoid - by her right eye contractions ([facility]) 08/24/2024 PAST SURGICAL HISTORY Procedure Laterality Date NEXPLANON REMOVAL Left 10/07/2023 PAST SURGICAL HISTORY OF surgery on eye ALLERGIES Patient has no known allergies. MEDICATIONS sertraline (ZOLOFT) 50 mg tablet Take 1 tablet by mouth once daily. cephALEXin (KEFLEX) 500 mg capsule Take 1 capsule by mouth four times daily for 7 days. FAMILY HISTORY Problem Relation Age of Onset Allergies Father Breast Cancer Maternal Grandmother Social History Tobacco Use Smoking status: Never Smokeless tobacco: Never Tobacco comments: no smoking in home Vaping Use Vaping status: Former Quit date: 03/08/2024 Substance Use Topics Alcohol use: Not Currently Comment: no alcohol use in home Drug use: Never Physical Exam Vitals and nursing note reviewed. Constitutional: Appearance: Normal appearance. Cardiovascular: Rate and Rhythm: Normal rate and regular rhythm. Pulses: Normal pulses. Heart sounds: Normal heart sounds, S1 normal and S2 normal. Pulmonary: Effort: Pulmonary effort is normal. Breath sounds: Normal breath sounds. Chest: Chest wall: Tenderness present. No mass, swelling or edema. Breasts: Right: No bleeding, inverted nipple, mass, nipple discharge or skin change. Left: Normal. No bleeding, inverted nipple, mass or nipple discharge. Skin change: Mild erythema 2x2 cm non indurated left breast,. Abdominal: General: Abdomen is flat. Tenderness: There is no abdominal tenderness. There is no right CVA tenderness, left CVA tenderness, guarding or rebound. Lymphadenopathy: Upper Body: Right upper body: No supraclavicular or axillary adenopathy. Left upper body: No supraclavicular or axillary adenopathy. Neurological: Mental Status: She is alert. {ASSESSMENT/PLAN: 1. Missed period - ICD9: 626.4, ICD10: N92.6 (primary diagnosis) - Negative test, continue - HCG QUAL UR B/O - 2. Mastitis - ICD9: 611.0, ICD10: N61.0 - Will start on keflex follow up with OBGYN. - If worsening seek emergency care Lisa Gregory APRN.HOG BUYER History and Record Review Clinical information obtained from an independent historian. History obtained from or confirmed by:parent. External record(s) reviewed: prior outpatient record. Findings from review of outpatient records: Previous charts reviewed Differential Diagnoses - Mastitis is more likely for the following reason(s): suggested by H&P - Sepsis is less likely for the following reason(s): H&P not suggestive - abscess is less likely for the following reason(s): H&P not suggestive Disposition The patient was discharged. OTC Medications were advised: Tylenol as needed Patient patient well-appearing nontoxic in no acute distress 19-year-old female presents presents with acute left mastitis no concern for acute abscess, or sepsis today patient provided with superstable patient will be started on Keflex and to follow-up with DISPOSAL PLANT OPERATOR. Patient is no longer , discussed ways to decrease without getting engorged. Patient's test in clinic is negative discussed prevention and to follow-up with primary care versus DISPOSAL PLANT OPERATOR. Did discuss if delayed menses can retest in the next 3 days. No abdominal pain, no concerns for ectopic , pyelonephritis or PID today. No vaginitis complaints today. Patient verbalized understanding and agreement with this plan, no abdominal pain documented in this encounterWayne [facility]05-14-2025 Instructions* Patient Instructions* Toby Rome APRN.CNP - 12/30/2024 4:12 PM EDT Psychotherapy Services at [facility] Call Behavioral Health Access Line at [phone] to schedule Individual psychotherapy In-person or virtual Wait time for first evaluation may be 12 or more weeks. Wait list spots may be available. Due to the high volume of patients this option is recommended if you are looking for short term acute symptomcoping strategies. 7-082-2-LXVZ0ELSC - [facility] Mental Health Hotline If you are in suicidal crisis, please call or text 1-409-583-TALK ( ) or visit the National Suicide Prevention Lifeline website. [facility].gov If you are in crisis, call 521 or go to your nearest Emergency Department Here are some links for wonderful Providers here in the community and surrounding areas. Do not hesitate to contact their offices, many are offering virtual visits during this time. Psychotherapy Services outside of [facility] Support International Online Provider Directory https://[employer].Hyperfair/ - can assist in finding providers in your area that might be more extensive then the list below. [facility] [place] [place] [address] [place] [address] [address] [place] [address] [facility] [address] [place] [address] [facility] [address] [place], [place] [id number] Lien Mir MD [address] [place] [address] [facility] [address] [facility], [address] [place] [address] [facility] [address] [place] [address] [facility] Services [place] / [place] [phone]/ [phone] Miryam Kelsey [address] [facility] [phone] [facility] [place] / [place] [phone] Behavioral health services of [facility] [address] [place] [address]/ [place] [phone] Mario Billingsley, MICHAEL, CLC [facility] Workshops, telehealth and at home visits. [phone] [facility] counseling [address] 20 locations [place], [place], [place], [place], [place], [place], [place], [facility], [place], [place], [place], [place], [place], [place], [facility], [place], [place] ,[facility], [place], [place],[facility], [facility], [place], [facility], [facility], [place] www.AdReady [phone] Psychotherapy resources outside of [facility] are listed below [facility] Psychotherapy Web: https://www.[employer] Inc[employer] Support International Online Provider Directory https://Fracture/ [facility] https://hearo.fm/ [employer] for Behavioral Health and Wellness Web: https://ProBueno/ Contacts+ for Effective Living Web: https://www.MotorwayBuddyliving.Hyperfair/ [employer]Stance Web: https://Feathr.Hyperfair/location/critical access hospital/[place]/ [facility] Web: https://www.[facility].org/ [facility] Web: https://Virally.org/ Recovery Resources Mental health and substance abuse help Web: https://www.Poetica.Wordlock & RESOURCES Support International Direct peer support and connection to professional resources Non-Emergency Helpline Phone: / Text: 292.389.6044 Web: https://www..net/ Online Provider Directory: https://Fracture/ Online Support Meetings: https://www..net/get-help/kab-pslgcx-lfagkoy-meetings/ [facility] [employer] [facility] [employer] [facility] Web: https://TotalHousehold/ MotherToRoot Orange Expert information on medication use during and Text: [phone] Web: https://Essess, Inc/ NATIONAL REGISTRY FOR PSYCHIATRIC MEDICATIONS Currently studying the safety of antidepressants, ADHD medications and atypical antipsychotics taken during TO PARTICIPATE CALL TOLL-FREE: Web: https://womensmentalhealth.org/research/pregnancyregistry/ Support Groups: [facility]- Follow on facebook Baby Bistro support group led by [facility] department [facility] Mamas - Support Group [facility] City[facility].org The POEM support group [phone] Www.poVenuelabsline.org Follow on facebook - LUAN hooper Online support meetings PSI https://www..net/get-help/nrl-eazjzc-iudutje-meetings/ [facility] mommy and me virtual support group 11:30-1pm Support for mothers and new babies and toddlers [place] childbirth education: Childbirth @cc.org or call [phone] CRISIS: CRISIS HOTLINE [phone], 911 or go to the nearest [facility] [phone] / [facility] [phone] https://www.[facility].org Crisis text line text the word HOME to 383658 [facility] [address] [place] [address] [facility] [address] www.Contour InnovationsgiannaJiongji App Yasmin Mane clinical counseling [address] [address] www.Exalt Communications [phone] Holding space psychotherapy Ketty Reyez HOME ATTENDANT SHIPPING SUPPORT CLERK-S [address] [facility] www.Eat In Chef [phone]/ [place] [phone] They all offer virtual. All work with trauma Support groups Online support meetings PSI https://www..net/get-help/khh-afhxyj-eqmiqxd-meetings/ Here are the support groups they offer: Support of parents of 1 to 4 years old children POEM ( Outreach and Encouragement for Moms) offers free support for mothers experiencing depression, anxiety, and other mood and anxiety disorders. Masks are recommended but not required. No pre-registration required. Babies in arms welcome. meetings now take place on the and Saturday of each month Location: [facility] [address] [place] [address] Room 122 (library room) 7-8:00 p.m. When you enter the caodaism parking lot off of [address] the entrance door closest to our meeting room is on the front of the building toward the right. For those who are more comfortable with a virtual platform, POEM offers online support group options several days of the week. To register for an online group or to find out more about POEM, website at: https://mhaohio.org/get-help/qhmgtkdu-iwllfh-tjwbcw/poem-services/ offer a confidential helpline: private Facebook group is called LUAN [facility] Here are the groups they offer: Traumatic childbirth resources: Http://pattch.org/ https://www.RedkneelorenacacaoTVnereyda.Hyperfair/ Name Location (s) Phone # (s) Services Website [facility] 9747 [facility], [place], [place] - [phone]; [address] [facility] 201 [facility] [phone] In-Person GROUPS INDIVIDUAL THERAPY MATERNAL-INFANT MENTAL HEALTH MEDICATION MANAGEMENT PLAY AND ART THERAPY TELETHERAPY https://www.Raw Science Inc./services/ [facility]? [address] [place], [place] [address] ? [address], [address] [place], [place] [address] ? ALEXANDRA [address] [place], [place] [address]? Grief Support Groups Individual Grief Counseling Spiritual Care Memorial Events https://pemberton.[facility].org/grief-services [facility] [address] [place], [place] [address]; ; Email: vicki@[employer] Women's Mental Health; Couples Counseling; Trauma (EMDR); Stress Management; Mood and Anxiety Related Disorders- and much more https://www.Genetic Technologies/ LifeStance Numerous as they have contract providers: access website to find specific providers nearyou Counseling including CBT and EMDR as well as many more modalities; Medication Management; Telehealth and In-Person https://Healthways/ [facility] [address] [place], [place] [address]; [phone] Personal, Family and Group Therapy; Psychological Testing and Diagnosis; Medication Management; Life and Career Coaching; Psychoanalysis; Literacy Testing; Yoga and Meditation https://Orlumet.Hyperfair/ [facility] [address] [facility] [address], [place] [address] [address] ; [address] [place] [address], [address] [place] [address]; Office # for both sites: Individual and Couples Counseling https://www.ZeroFOX.Hyperfair/paymentinsurance.html OCD & Anxiety [facility] [address] [facility], [address], [place] [address]; Specialize in Cognitive-Behavioral Therapy (CBT) for the treatment of anxiety disorders across the lifespan. TELEHEALTH ONLY. https://ocdandanxietycentKash/faqs [facility] [address] [facility] 6th [place], [address] [place] [address] [facility] [place], [address] [place] [address] [facility] [place], [address] [place] 0250076 [place] [address], 8970277 [place] [address] [place], [address] [place] [address] [place], [place], [address] Transportation Services To minimize patient barriers, [facility] provides transportation services to patients who qualify. If you are unable to get to your appointment at any of our facilities, please let us know. Need help now? Stop by one of our walk-in clinics to establish behavioral health care. Counseling Indvidual, Group, Couples and Family Counseling and EMDR. Medication Management Case Management benefits applications housing assistance Substance abuse treatment Medication assisted treatment https://www.[facility].org/mental-health/ [facility] OFFICE AT [facility] 44[address] [place] [address] [facility] OFFICE [address] [place] [address] [facility] OFFICE 5[address] [place] [address] [facility] OFFICE (at [facility]) [address] [place] [address] [facility] SYRINGE EXCHANGE PROGRAM & HIV SCREENING [address] [place] [address] MADERA SYRINGE EXCHANGE PROGRAM [address] [place] [address] Behavioral Health Urgent Care: [facility] Counseling Indvidual and Group Medication Management Case Management benefits applications housing assistance Substance abuse treatment Medication assisted treatment Employment Services/ Job Training https://theID Quantiqueio.org/ Recovery Resources [address] [place], [place] [address]: P: [phone] [address] [facility] [address], [place] [address] P: [phone] Our services include: Addiction Mental Health Treatment Assessment Psychiatry Medical Care Employment Housing Drug and Alcohol Prevention HIV/AIDS Prevention https://www.recres.org/ [facility] [place] [address] [place] [id number] [address] [place], [place] [address] [place] [address] [place] [address] [place] [address] [facility] [address] [place] [address] [place] [address] [place] [address] TMS Therapy/ Counseling Psychocological Testing for ADHD Medication Management In-Person/ Telemedicine https://www.Platter.Hyperfair/patients-depression Memory & Psychological services [address] [address], [place] [address] Neuropsychological Testing For ADHD https://www.memoryandpsych.com/ [facility] Main Office [address] [place], [place] [address] [id number] [address] [place] [address] [id number] Providing brzl-yn-tumz and telehealth services. Adult Case Management Community Education and Prevention Employment Outpatient Treatment - Counseling & Psychotherapy Psychiatric Services http://www.ccc.org/ [facility] [place] [address] [place] [address] Kenna [facility] [address] [place] [address] Virtual Appointments! Now offering safe and convenient virtual client appointments to anyone in [place]! Individual Therapy Couples/Relationship Therapy Trauma/EMDR Therapy Art Therapy Play Therapy Regional Intermodal Truck Driver Support: Parenting Skills, Parent Child Interaction Therapy, Parent Interaction Therapy Meditation Dietitian/Airline Radio Operator Services Group Therapy Yoga https://www.NOVASYS MEDICAL.Hyperfair/ Sherin Krishnan [phone] Private Practice: Telehealth Only Specializes in EMDR for Trauma None documented in this encounterWayne [facility]05-14-2025 NoteHNO ID: [id number] Author: TOBY ROME APRN.CNP Service: ? Author Type: Nurse Practitioner Type: Progress Notes Filed: 12/30/2024 16:12 Note Text: Zain Rose is a 19 year old female who presents for medication follow up. HPI: Zain had reported increased anger at her visit. She had declined counseling, but wanted to trial medication. 50 mg of Zoloft was initiated. She reports today that anger has subsided and that medication is helping significantly. She does not feel that a dosage increase or decrease is necessary. Holding and bonding with baby. Denies thoughts of self harm or harming others. Significant other present. 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 Operator History LMP: 11/23/2024 (Exact Date), Age at Menarche: 13 Age at First : Age at Menopause: Corduroy Brusher Operator History Comments: Sexual Activity: Not Currently; Male Contraception: No contraception data on record PAST MEDICAL HISTORY Diagnosis Date ADHD (attention deficit hyperactivity disorder) Depression affecting in second trimester, antepartum ([facility]) 05/22/2024 May 22, 2024 Initial Office Visit from 03/27/2024 in OB/Gynecology Routine Office Visit from 05/22/2024 in OB/Gynecology 03/24/2024 03/27/2024 05/22/2024 1543 1123 1507 Depression Screening Over the past 2 weeks have you felt down, depressed, or hopeless? Negative Negative Positive - Further Testing Generalized anxiety disorder Hyperemesis gravidarum ([facility]) 03/27/2024 May 22, 2024 Significantly improving with Zofran pump and IV fluids. Toby Rome, ULISES.HOG BUYER May 13, 2024 - Continues to experience severe nausea and vomiting - Minimal food/water intake - Phenergan providing some relief - Recommend Zofran pump, ordered. May 08, 2024 7% weight loss Tried going to ER, but was waiting for 4 hours so she left Vomits up to 10x per day NEGATIVE MEDICAL HISTORY normal color vision past medical history of age 2 years dermatoid - by her right eye contractions ([facility]) 08/24/2024 PAST SURGICAL HISTORY Procedure Laterality Date NEXPLANON REMOVAL Left 10/07/2023 PAST SURGICAL HISTORY OF surgery on eye FAMILY HISTORY Problem Relation Age of Onset Allergies Father Breast Cancer Maternal Grandmother Social History Tobacco Use Smoking status: Never Smokeless tobacco: Never Tobacco comments: no smoking in home Vaping Use Vaping status: Former Quit date: 03/08/2024 Substance Use Topics Alcohol use: Not Currently Comment: no alcohol use in home Drug use: Never Current Outpatient Medications Medication Sig sertraline (ZOLOFT) 50 mg tablet Take 1 tablet by mouth once daily. No current facility-administered medications for this visit. Allergies As of Date: 12/30/2024 (No Known Allergies) Fully Assessed 12/30/2024 REVIEW OF SYSTEMS Expanded ROS: PSYCH: Negative for depression, anxiety, rage Allergies and current medication updated:Yes SENSITIVE EXAM: Sensitive exam not performed. EXAM: BP 110/60 Wt 152 lb (68.9kg) LMP 11/23/2024 GENERAL: pleasant, female in no apparent distress HEENT: Normocephalic, atraumatic, mucus membranes moist, and no lesions CHEST: Normal inspiratory effort NEURO: alert and oriented x3,exam grossly non-focal EXTREMITIES: normal ASSESSMENT AND PLAN: 1. mood disorder (HCC) - ICD9: 648.44, 296.90, ICD10: O90.6 - Continue 50 mg of Zoloft - Do not attempt to self discontinue without discussing with provider - Declines counseling, mental health resources provided - To notify with worsening mood RTO for annual or sooner as needed. Toby Rome APRN.HOG BUYER I spent a total of 10 minutes on the date of the service which included preparing to see the patient, mjyk-mt-hrxa patient care, completing clinical documentation, obtaining and/or reviewing separately obtained history, counseling and educating the patient/family/caregiver, and ordering medications, tests, or procedures.[facility]05-14-2025 History of Present illness Narrative* Toby Rome APRN.HOG BUYER - 12/30/2024 3:47 PM EDT Zain Rose is a 19 year old female who presents for medication follow up. HPI: Zain had reported increased anger at her visit. She had declined counseling, but wanted to trial medication. 50 mg of Zoloft was initiated. She reports today that anger has subsidedand that medication is helping significantly. She does not feel that a dosage increase or decrease is necessary. Holding and bonding with baby. Denies thoughts of self harm or harming others. Significant other present. 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 Operator History LMP: 11/23/2024 (Exact Date), Age at Menarche: 13 Age at First : Age at Menopause: Corduroy Brusher Operator History Comments: Sexual Activity: Not Currently; Male Contraception: No contraception data on record PAST MEDICAL HISTORY Diagnosis Date ADHD (attention deficit hyperactivity disorder) Depression affecting in second trimester, antepartum (HCC) 05/22/2024 May 22, 2024 Initial Office Visit from 03/27/2024 in OB/Gynecology Routine Office Visit from 05/22/2024 in OB/Gynecology 03/24/2024 03/27/2024 05/22/2024 1543 1123 1507 Depression Screening Over the past 2 weeks have you felt down, depressed, or hopeless? Negative Negative Positive - Further Testing Generalized anxiety disorder Hyperemesis gravidarum ([facility]) 03/27/2024 May 22, 2024 Significantly improving with Zofran pump and IV fluids. Toby Rome APRN.HOG BUYER May 13, 2024 - Continues to experience severe nausea and vomiting - Minimal food/water intake - Phenergan providing some relief - Recommend Zofran pump, ordered. May 08, 2024 7% weight loss Tried going to ER, but was waiting for 4 hours so she left Vomits up to 10x per day NEGATIVE MEDICAL HISTORY normal color vision past medical history of age 2 years dermatoid - by her right eye contractions ([facility]) 08/24/2024 PAST SURGICAL HISTORY Procedure Laterality Date NEXPLANON REMOVAL Left 10/07/2023 PAST SURGICAL HISTORY OF surgery on eye FAMILY HISTORY Problem Relation Age of Onset Allergies Father Breast Cancer Maternal Grandmother Social History Tobacco Use Smoking status: Never Smokeless tobacco: Never Tobacco comments: no smoking in home Vaping Use Vaping status: Former Quit date: 03/08/2024 Substance Use Topics Alcohol use: Not Currently Comment: no alcohol use in home Drug use: Never Current Outpatient Medications Medication Sig sertraline (ZOLOFT) 50 mg tablet Take 1 tablet by mouth once daily. No current facility-administered medications for this visit. Allergies As of Date: 12/30/2024 (No Known Allergies) Fully Assessed 12/30/2024 REVIEW OF SYSTEMS Expanded ROS: PSYCH: Negative for depression, anxiety, rage Allergies and current medication updated:Yes SENSITIVE EXAM: Sensitive exam not performed. EXAM: BP 110/60 Wt 152 lb (68.9kg) LMP 11/23/2024 GENERAL: pleasant, female in no apparent distress HEENT: Normocephalic, atraumatic, mucus membranes moist, and no lesions CHEST: Normal inspiratory effort NEURO: alert and oriented x3,exam grossly non-focal EXTREMITIES: normal ASSESSMENT AND PLAN: 1. mood disorder (HCC) - ICD9: 648.44, 296.90, ICD10: O90.6 - Continue 50 mg of Zoloft - Do not attempt to self discontinue without discussing with provider - Declines counseling, mental health resources provided - To notify with worsening mood RTO for annual or sooner as needed. Toby Rome APRN.CNP I spent a total of 10 minutes on the date of the service which included preparing to see the patient, jfnc-on-pvab patient care, completing clinical documentation, obtaining and/or reviewing separately obtained history, counseling and educating the patient/family/caregiver, and ordering medications, tests, or procedures. documented in this encounterWayne Healthcare [facility] Campus04-10-2025 Instructions* Patient Instructions* Toby Rome APRN.CNP - 11/26/2024 4:23 PM EDT Psychotherapy [facility] at [facility] Call Behavioral Health Access Line at [phone] to schedule Individual psychotherapy In-person or virtual Wait time for first evaluation may be 12 or more weeks. Wait list spots may be available. Due to the high volume of patients this option is recommended if you are looking for short term acute symptomcoping strategies. 7-095-0-UUNF0TBZJ - [place] Maternal Mental Health Hotline If you are in suicidal crisis, please call or text 4-855-101-TALK ( ) or visit the National Suicide Prevention Lifeline website. mchb.hrsa.gov If you are in crisis, call 911 or go to your nearest Emergency Department Here are some links for wonderful Providers here in the community and surrounding areas. Do not hesitate to contact their offices, many are offering virtual visits during this time. Psychotherapy Services outside of [facility] Support International Online Provider Directory https://Fracture/ - can assist in finding providers in your area that might be more extensive then the list below. [facility] [place], [place] [address] [place] [address] [facility] [address] [place] [address] [facility] [address] [place] [address] [facility] [address] [place] [address] Lien Mir MD [address] [place] [address] [facility] [address] [facility], [address] [place] [address] [facility] Psychiatric Services [address] [place] [address] [facility] Counseling Services [place] / [place] [phone]/ [phone] Miryam Delacruz [address] [facility] [address] [facility] [phone] Aves of Counseling and Mediation [place] / Bev [phone] Behavioral health services of [facility] [address] [place] [address]/ [place] and [place] [phone] MICHAEL Salguero, CHINTAN [facility] Family Therapy Workshops, telehealth and at home visits. [phone] [facility] counseling center 20 locations [facility], [place], [place], [place], [place], [place], [place] [facility], [place], [place], [place], [place], [place], [place], [facility], [place], [place] ,[facility], [place], [place],[facility], [facility] [place], [place], [facility], [facility], [place] www.AdReady [phone] Psychotherapy resources outside of [facility] are listed below [facility] Web: https://www.Raw Science Inc./ Support International Online Provider Directory https://Fracture/ [facility] https://hearo.fm/ [facility] Well[facility] Web: https://Orlumet.Hyperfair/ Contacts+ for Effective Living Web: https://appCREARliving.Hyperfair/ [facility]ance Web: https://Feathr.Hyperfair/location/state/[place]/ [facility] Web: https://www.[facility].org/ [facility] Web: https://Virally.Wordlock/ Recovery Resources Mental health and substance abuse help Web: https://www.OnQueue Technologiess.org & RESOURCES Support International Direct peer support and connection to professional resources Non-Emergency Helpline Phone: / Text: [phone] Web: https://www..net/ Online Provider Directory: https://Fracture/ Online Support Meetings: https://www..net/get-help/acq-wsgsvs-sydppjn-meetings/ MISHA Baby and Line Cook Services Web: https://wwwWisair/ MotherToBaby Expert information on medication use during and Text: [phone] Web: https://retsCloud.Wordlock/ NATIONAL REGISTRY FOR PSYCHIATRIC MEDICATIONS Currently studying the safety of antidepressants, ADHD medications and atypical antipsychotics taken during TO PARTICIPATE CALL TOLL-FREE: Web: https://womensmentalhealth.org/research/pregnancyregistry/ Support Groups: [facility]- Follow on facebook Baby Bistro support group led by [facility] department Resilient Mamas - Support Group [facility].org The POEM support group [phone] Www.poemonline.org Follow on facebook - LUAN hooper Online support meetings PSI https://www..net/get-help/aep-rmsmoz-zfuthfi-meetings/ [facility] mommy and me virtual support group 11:30-1pm Support for mothers and new babies and toddlers [place] childbirth education: Childbirth @cc.org or call [phone] CRISIS: CRISIS HOTLINE [phone], 911 or go to the nearest ER. [facility] [phone] / [facility] [phone] https://www.[facility] hospitalsrb.org Crisis text line text the word HOME to [phone] [facility] [address] [place]en [address] [facility] [id number] www.Meta Data Analytics 360 Yasmin Mane clinical counseling [address] [address] www.Exalt Communications [phone] Holding space psychotherapy Ketty Reyez HOME ATTENDANT SHIPPING SUPPORT CLERK-S [address] [facility] www.Eat In Chef [phone]/ [place] [phone] They all offer virtual. All work with trauma Support groups Online support meetings [facility] https://www..net/get-help/pfu-xfuroc-rwevszn-meetings/ Here are the support groups they offer: Support of parents of 1 to 4 years old children POEM ( Outreach and Encouragement for Moms) offers free support for mothers experiencing depression, anxiety, and other mood and anxiety disorders. Masks are recommended but not required. No pre-registration required. Babies in arms welcome. meetings now take place on the and Saturday of each month Location: [facility] [address] [place] [address] Room 122 (library room) 7-8:00 p.m. When you enter the caodaism parking lot off of [address] the entrance door closest to our meeting room is on the front of the building toward the right. For those who are more comfortable with a virtual platform, POEM offers online support group options several days of the week. To register for an online group or to find out more about POEM, website at: https://mhaohio.org/get-help/bopxzndz-hqwaqc-kuzrzh/poem-services/ offer a confidential helpline: private Facebook group is called LUAN [place] Here are the groups they offer: Traumatic childbirth resources: Http://pattch.org/ https://www.hakusuCompassMed.Hyperfair/ Name Location (s) Phone # (s) Services Website Holding [facility] Psychotherapy [address] [place], [place] - [phone]; [address] [phone] In-Person GROUPS INDIVIDUAL THERAPY MATERNAL- MENTAL HEALTH MEDICATION MANAGEMENT PLAY AND ART THERAPY TELETHERAPY https://www.Raw Science Inc./services/ [facility]? [address] [place], [place] [address] ? [address] [place], [place] [address] ? ALEXANDRA [address] [place] [phone]? Grief Support Groups Individual Grief Counseling Spiritual Care Memorial Events https://noriega.[facility].org/grief-services [facility] [address] [place], [place] [address]; ; Email: vicki@Applied Genetics [employer] Women's Mental Health; Couples Counseling; Trauma (EMDR); Stress Management; Mood and Anxiety Related Disorders- and much more [email or web address] county [email or web address]/ LifeStance Numerous as they have contract providers: access website to find specific providers nearyou Counseling including CBT and EMDR as well as many more modalities; Medication Management; Telehealth and In-Person [email or web address] [facility] [address] [place], [place] [address]; [phone] Personal, Family and Group Therapy; Psychological Testing and Diagnosis; Medication Management; Life and Career Coaching; Psychoanalysis; Literacy Testing; Yoga and Meditation [email or web address] [facility] [place] [address] [facility] [address], [place] [address] [address] ; [address] [facility] [address] [place] [address]; Office # for both sites: Individual and Couples Counseling [email or web address] [facility]xiety [facility] [address], [address], [place] [address]; Specialize in Cognitive-Behavioral Therapy (CBT) for the treatment of anxiety disorders across the lifespan. TELEHEALTH ONLY. [email or web address] hospitals cleveland medical [email or web address] [facility] [address] [place], [address] [place] [address] [place], [address] [place] [address] [facility] [place] [address] [place] [address] [place], [address], [address] [place] [address] [facility] [place], [address] [place] [address] [place], [address] Transportation Services To minimize patient barriers, [facility] provides transportation services to patients who qualify. If you are unable to get to your appointment at any of our facilities, please let us know. Need help now? Stop by one of our walk-in clinics to establish behavioral health care. Counseling Indvidual, Group, Couples and Family Counseling and EMDR. Medication Management Case Management benefits applications housing assistance Substance abuse treatment Medication assisted treatment [email or web address]/ [facility] OFFICE AT [facility] [address] [place] [address] [facility] OFFICE [address] [place] [address] [facility] OFFICE [address] [place], [place] [id number] [facility] OFFICE (at [facility]) [address] [place] [address] [facility] SYRINGE EXCHANGE PROGRAM & HIV SCREENING [address] [place] [address] [facility] EXCHANGE PROGRAM [address] [place] [address] Behavioral Health Urgent Care: [facility] Counseling Indvidual and Group Medication Management Case Management benefits applications housing assistance Substance abuse treatment Medication assisted treatment Employment Services/ Job Training https://theQingdao Land of State Power Environment EngineeringakOndeego.[email or web address]/ [facility] [address] [place], [place] [address]: P: [phone] [address] [facility], [address], [place], [place] [address] P: [phone] Our services include: Addiction Mental Health Treatment Assessment Psychiatry Medical Care Employment Housing Drug and Alcohol Prevention HIV/AIDS Prevention [email or web address]/ [facility] [place] [address] [place] [address] [place] [address] [place] [address] [address] [place], [place] [address] [place] [address] [place] [address] [place] [address] [facility] [address] [place] [address] [place] [address] [place] [address] TMS Therapy/ Counseling Psychocological Testing for ADHD Medication Management In-Person/ Telemedicine [email or web address] Memory [facility] Psychological services [address], [place] [address] Neuropsychological Testing For ADHD [email or web address] [facility] Office [facility] [place], [place] [address] [address] [address] Providing rpxl-sn-jpot and telehealth services. Adult Case Management Community Education and Prevention Employment Outpatient Treatment - Counseling & Psychotherapy Psychiatric Services [email or web address]/ [facility] [place] [address] [place] [address] [facility]) [address] [place] [address] Virtual Appointments! Now offering safe and convenient virtual client appointments to anyone in [place]! Individual Therapy Couples/Relationship Therapy Trauma/EMDR Therapy Art Therapy Play Therapy [employer] Driver Support: Parenting Skills, Parent Child Interaction Therapy, Parent Infant Interaction Therapy Meditation Dietitian/Airline Radio Operator Services Group Therapy Yoga [email or web address] Sherin Sahuriley [phone] Private Practice: Telehealth Only Specializes in EMDR for Trauma None documented in this encounterWayne Healthcare Main Campus04-10-2025 NoteHNO ID: [id number] Author: TOBY ROME APRN.CNP Service: ? Author Type: Nurse Practitioner Type: Progress Notes Filed: 11/26/2024 16:38 Note Text: VISIT Zain Rose is a 19 year old year old here for visit. Delivery Summary: 1 10/22/24 36w4d 2.58 kg (5 lb 11 oz) F Vag-Spont Epidural Living 5 8 Name: Chou Comments: Active labor, EBL 150 ml, midline, periurethral extension/lac and 1st degree Location: [facility] Delivering Clinician: Alison Grimm MD ROS/ Recovery: Feeding: Breast and bottle feeding problems: None Menses since delivery: moderate to heavy Menstrual pattern prior to : Regular periods [place] since delivery: Resumed Depression: denies symptoms of depression. OB Depression and Anxiety Screening- This Encounter (since 11/25/2024) Over the past 2 weeks have you felt down, depressed, or hopeless? Negative Over the past two weeks, have you felt little interest or pleasure in doing things?? Negative Feeling nervous, anxious or on edge 0-Not at all Not being able to stop or control worrying 0-Not al all Anxiety Pre-Screening Total (If >/= 3 additional questions will be reviewed) 0 Emotional support: Yes Bowel symptoms: Negative for abdominal discomfort, blood in stools or black stools and change in bowel habits Abdomen: N/A Bladder symptoms: No dysuria, gross hematuria, urinary frequency, urinary urgency, or incontinence Other issues: None Last Pap: n/a HPV: N/A PAST MEDICAL HISTORY Diagnosis Date ADHD (attention deficit hyperactivity disorder) Generalized anxiety disorder NEGATIVE MEDICAL HISTORY normal color vision past medical history of age 2 years dermatoid - by her right eye contractions 08/24/2024 PAST SURGICAL HISTORY Procedure Laterality Date NEXPLANON REMOVAL Left 10/07/2023 PAST SURGICAL HISTORY OF surgery on eye FAMILY HISTORY Problem Relation Age of Onset Allergies Father Breast Cancer Maternal Grandmother Social History Tobacco Use Smoking status: Never Smokeless tobacco: Never Tobacco comments: no smoking in home Vaping Use Vaping status: Former Quit date: 03/08/2024 Substance Use Topics Alcohol use: Not Currently Comment: no alcohol use in home Drug use: Never PHYSICAL EXAMINATION: SENSITIVE EXAM: The sensitive examination was discussed with the Patient or Patient's Authorized Surface Plate Inspector. As applicable, any other physician, advance practice provider, medical student, or other health professional student that will be observing or involved in the sensitive examination for educational or training purposes was discussed with the Patient or Authorized Surface Plate Inspector. The Patient or Authorized Surface Plate Inspector has agreed to proceed with the sensitive examination. (Sensitive examination includes inspection and/or palpation of the breasts, pelvis, prostate and anorectal regions). BP 104/62 Wt 152 lb (68.9kg) LMP 11/23/2024 GENERAL: pleasant, female in no apparent distress HEENT: Normocephalic, atraumatic, mucus membranes moist, and no lesions NECK: Supple, full range of motion, no adenopathy, and thyroid normal DERMATOLOGY: Normal, without lesions, non-icteric, and non-hirsute BREAST: deferred CHEST: Normal inspiratory effort ABDOMEN: soft, non-tender, and no masses. INCISION: N/A PELVIC: external genitalia normal, normal Bartholin's glands, urethra, Huxley's glands, no vulvar lesions, no cervical lesions, good vaginal support,+ menses normal appearing perineal body and perianal region BIMANUAL: uterus normal size, shape and consistency, no adnexal masses, and non-tender NEURO: alert and oriented x3,exam grossly non-focal EXTREMITIES: normal ASSESSMENT AND PLAN: 19 year old status post with course complicated by anger. Contraception plan: condoms Follow up: weight loss: Goal set for 10% of body weight over 6 months. Discussed diet and exercise., RTC for annual exams and PRN Can resume intercourse when physically, emotionally, and mentally ready. Reviewed the physical and mental changes that occur after having a baby. Recommend waiting 12-18 months after delivery for any subsequent pregnancies. Reviewed what to expect first year and when to follow up. mood disorder (HCC) - ICD9: 648.44, 296.90, ICD10: O90.6 - Reports increased anger - Denies thoughts of harming self or baby - Declines counseling - Discussed medication. Reviewed risks and benefits. Patient to go to ER with suicidal thoughts or thoughts of harming others. Discussed will likely take 4-6 weeks to notice full effect. Reviewed that symptoms can become worse before better. Ok to continue . Mental health resources provided. - SERTRALINE 50 MG TABLET RTO in 3-4 weeks to assess response t (more content not included)...[facility]04-10-[facility] History of Present illness Narrative* Toby Rome APRN.HOG BUYER - 11/26/2024 4:01 PM EDT VISIT Zain Rose is a 19 year old year old here for visit. Delivery Summary: 1 10/22/24 36w4d 2.58 kg (5 lb 11 oz) F Vag-Spont Epidural Living 5 8 Name: Chou Comments: Active labor, EBL 150 ml, midline, periurethral extension/lac and 1st degree Location: [facility] Delivering Clinician: Alison Grimm MD ROS/ Recovery: Feeding: Breast and bottle feeding problems: None Menses since delivery: moderate to heavy Menstrual pattern prior to : Regular periods [place] since delivery: Resumed Depression: denies symptoms of depression. OB Depression and Anxiety Screening- This Encounter (since 11/25/2024) Over the past 2 weeks have you felt down, depressed, or hopeless? Negative Over the past two weeks, have you felt little interest or pleasure in doing things? Negative Feeling nervous, anxious or on edge 0-Not at all Not being able to stop or control worrying 0-Not al all Anxiety Pre-Screening Total (If >/= 3 additional questions will be reviewed) 0 Emotional support: Yes Bowel symptoms: Negative for abdominal discomfort, blood in stools or black stools and change in bowel habits Abdomen: N/A Bladder symptoms: No dysuria, gross hematuria, urinary frequency, urinary urgency, or incontinence Other issues: None Last Pap: n/a HPV: N/A PAST MEDICAL HISTORY Diagnosis Date ADHD (attention deficit hyperactivity disorder) Generalized anxiety disorder NEGATIVE MEDICAL HISTORY normal color vision past medical history of age 2 years dermatoid - by her right eye contractions 08/24/2024 PAST SURGICAL HISTORY Procedure Laterality Date NEXPLANON REMOVAL Left 10/07/2023 PAST SURGICAL HISTORY OF surgery on eye FAMILY HISTORY Problem Relation Age of Onset Allergies Father Breast Cancer Maternal Grandmother Social History Tobacco Use Smoking status: Never Smokeless tobacco: Never Tobacco comments: no smoking in home Vaping Use Vaping status: Former Quit date: 03/08/2024 Substance Use Topics Alcohol use: Not Currently Comment: no alcohol use in home Drug use: Never PHYSICAL EXAMINATION: SENSITIVE EXAM: The sensitive examination was discussed with the Patient or Patient's Authorized Surface Plate Inspector. As applicable, any other physician, advance practice provider, medical student, or other health professional student that will be observing or involved in the sensitive examination for educational or training purposes was discussed with the Patient or Authorized Surface Plate Inspector. The Patient or Authorized Surface Plate Inspector has agreed to proceed with the sensitive examination. (Sensitive examination includes inspection and/or palpation of the breasts, pelvis, prostate and anorectal regions). BP 104/62 Wt 152 lb (68.9kg) LMP 11/23/2024 GENERAL: pleasant, female in no apparent distress HEENT: Normocephalic, atraumatic, mucus membranes moist, and no lesions NECK: Supple, full range of motion, no adenopathy, and thyroid normal DERMATOLOGY: Normal, without lesions, non-icteric, and non-hirsute BREAST: deferred CHEST: Normal inspiratory effort ABDOMEN: soft, non-tender, and no masses. INCISION: N/A PELVIC: external genitalia normal, normal Bartholin's glands, urethra, Huxley's glands, no vulvar lesions, no cervical lesions, good vaginal support,+ menses normal appearing perineal body and perianal region BIMANUAL: uterus normal size, shape and consistency, no adnexal masses, and non-tender NEURO: alert and oriented x3,exam grossly non-focal EXTREMITIES: normal ASSESSMENT AND PLAN: 19 year old status post with course complicated by anger. Contraception plan: condoms Follow up: weight loss: Goal set for 10% of body weight over 6 months. Discussed diet and exercise., RTC for annual exams and PRN Can resume intercourse when physically, emotionally, and mentally ready. Reviewed the physical and mental changes that occur after having a baby. Recommend waiting 12-18 months after delivery for any subsequent pregnancies. Reviewed what to expect first year and when to follow up. mood disorder (HCC) - ICD9: 648.44, 296.90, ICD10: O90.6 - Reports increased anger - Denies thoughts of harming self or baby - Declines counseling - Discussed medication. Reviewed risks and benefits. Patient to go to ER with suicidal thoughts or thoughts of harming others. Discussed will likely take 4-6 weeks to notice full effect. Reviewed that symptoms can become worse before better. Ok to continue . Mental health resources provided. - SERTRALINE 50 MG TABLET RTO in 3-4 weeks to assess response to Zoloft. Toby Rome APRN.HOG BUYER documented in this encounterWayne Healthcare Main Campus03-27-2025 NoteHNO ID: [id number] Author: GEORGE PRETTY PA Service: ? Author Type: Physician Microfilming Document Preparer Type: Progress Notes Filed: 11/12/2024 15:44 Note Text: [facility] Subjective Zain Rose is a 19 year old female. Patient presents with: Breast Problem: Bilat breast, redness warmth, painful, lumps present in both, states she is exclusively pumping x 1 week HPI 19-year-old female presents for bilateral breast redness, warmth, pain, lumpiness and rash. Patient states that she is pumping. She states that she felt like her pump was not getting enough out of her breast, she recently got a new one. She states that she has had bilateral breast warmth, redness and pain for the past week. She has also felt generally unwell. She denies any fevers. She states that her breasts are lumpy and painful. She states yesterday she knows she has a rash around the nipple area on both breasts. It is not itchy, it is a little bit burning. She states infant has no signs of thrush, but also infant does not feed from her breasts. No other complaint PAST MEDICAL HISTORY Diagnosis Date ADHD (attention deficit hyperactivity disorder) Generalized anxiety disorder NEGATIVE MEDICAL HISTORY normal color vision past medical history of age 2 years dermatoid - by her right eye contractions 08/24/2024 PAST SURGICAL HISTORY Procedure Laterality Date NEXPLANON REMOVAL Left 10/07/2023 PAST SURGICAL HISTORY OF surgery on eye ALLERGIES Patient has no known allergies. MEDICATIONS cephALEXin (KEFLEX) 500 mg capsule Take 1 capsule by mouth four times daily for 7 days. clotrimazole (LOTRIMIN) 1 % cream Apply to affected area two times a day for 7 days. ondansetron (ZOFRAN) 4 mg tablet Take 1 tablet by mouth every 8 hours as needed for nausea/vomiting. (Patient not taking: Reported on 11/12/2024) famotidine (PEPCID) 20 mg tablet Take 1 tablet by mouth two times a day. (Patient not taking: Reported on 11/12/2024) cyclobenzaprine (FLEXERIL) 5 mg tablet Take 1 tablet by mouth three times a day as needed. (Patient not taking: Reported on 11/12/2024) FAMILY HISTORY Problem Relation Age of Onset Allergies Father Breast Cancer Maternal Grandmother Social History Tobacco Use Smoking status: Never Smokeless tobacco: Never Tobacco comments: no smoking in home Vaping Use Vaping status: Former Quit date: 03/08/2024 Substance Use Topics Alcohol use: Not Currently Comment: no alcohol use in home Drug use: Never Review of Systems Constitutional: Negative for chills and fever. HENT: Negative for congestion, ear pain and sore throat. Respiratory: Negative for cough and shortness of breath. Cardiovascular: Negative for chest pain. Gastrointestinal: Negative for diarrhea and vomiting. Skin: Positive for color change and rash. Objective BP 109/82 Pulse 97 Temp 36.9 ?C (98.5 ?F) Resp 20 Wt 68 kg (149 lb 14.6 oz) LMP 11/12/2024 (Exact Date) SpO2 97% Yes BMI 24.20 kg/m? Physical Exam Vitals and nursing note reviewed. Exam conducted with a contour stitcher present. Constitutional: General: She is not in acute distress. Appearance: Normal appearance. She is not toxic-appearing. Cardiovascular: Rate and Rhythm: Normal rate and regular rhythm. Pulmonary: Effort: Pulmonary effort is normal. Breath sounds: Normal breath sounds. Chest: Breasts: Right: Skin change and tenderness present. Left: Skin change and tenderness present. Comments: Patient has tenderness of bilateral breasts. She has slightly raised erythematous bumps around bilateral areola's. No drainage or fluctuance. No abscess felt. Skin: General: Skin is warm and dry. Neurological: Mental Status: She is alert. {ASSESSMENT/PLAN: 1. Mastitis - ICD9: 611.0, ICD10: N61.0 (primary diagnosis) -Will cover for mastitis due to breast pain, tenderness. Rx Keflex -Warm compresses to the breasts -Continue pumping 2. Rash - ICD9: 782.1, ICD10: R21 -Rash appears more consistent with a dermatitis or possible nipple candidiasis. Rx for clotrimazole ointment given -Follow-up with mold dresser if symptoms persist Diagnosis and treatment plan were discussed and questions were answered to the patient's satisfaction. Pt acknowledged understanding of concepts and follow up plan. Specific signs and symptoms that would indicate the need for higher level of care were discussed in detail warranting prompt ER evaluation. VALERIA Mcmanus History and Record Review External record(s) reviewed: prior outpatient record. Differential Diagnoses - Mastitis is more likely for the following reason(s): suggested by HANDP Disposition The patient was discharged. OTC Medications were advised: Tylenol as needed for pain ProceduresUniversity [facility]als [facility]03-[facility] History of Present illness Narrative* George Pretty PA - 11/12/2024 3:41 PM EDT [facility] Subjective Zain Rose is a 19 year old female. Patient presents with: Breast Problem: Bilat breast, redness warmth, painful, lumps present in both, states she is exclusively pumping x 1 week HPI 19-year-old female presents for bilateral breast redness, warmth, pain, lumpiness and rash. Patientstates that she is pumping. She states that she felt like her pump was not getting enough out of her breast, she recently got a new one. She states that she has had bilateral breast warmth, redness and pain for the past week. She has also felt generally unwell. She denies any fevers. She states that her breasts are lumpy and painful. She states yesterday she knows she has a rash around the nipple area on both breasts. It is not itchy, it is a little bit burning. She states has no signsof thrush, but also does not feed from her breasts. No other complaint PAST MEDICAL HISTORY Diagnosis Date ADHD (attention deficit hyperactivity disorder) Generalized anxiety disorder NEGATIVE MEDICAL HISTORY normal color vision past medical history of age 2 years dermatoid - by her right eye contractions 08/24/2024 PAST SURGICAL HISTORY Procedure Laterality Date NEXPLANON REMOVAL Left 10/07/2023 PAST SURGICAL HISTORY OF surgery on eye ALLERGIES Patient has no known allergies. MEDICATIONS cephALEXin (KEFLEX) 500 mg capsule Take 1 capsule by mouth four times daily for 7 days. clotrimazole (LOTRIMIN) 1 % cream Apply to affected area two times a day for 7 days. ondansetron (ZOFRAN) 4 mg tablet Take 1 tablet by mouth every 8 hours as needed for nausea/vomiting. (Patient not taking: Reported on 11/12/2024) famotidine (PEPCID) 20 mg tablet Take 1 tablet by mouth two times a day. (Patient not taking: Reported on 11/12/2024) cyclobenzaprine (FLEXERIL) 5 mg tablet Take 1 tablet by mouth three times a day as needed. (Patientnot taking: Reported on 11/12/2024) FAMILY HISTORY Problem Relation Age of Onset Allergies Father Breast Cancer Maternal Grandmother Social History Tobacco Use Smoking status: Never Smokeless tobacco: Never Tobacco comments: no smoking in home Vaping Use Vaping status: Former Quit date: 03/08/2024 Substance Use Topics Alcohol use: Not Currently Comment: no alcohol use in home Drug use: Never Review of Systems Constitutional: Negative for chills and fever. HENT: Negative for congestion, ear pain and sore throat. Respiratory: Negative for cough and shortness of breath. Cardiovascular: Negative for chest pain. Gastrointestinal: Negative for diarrhea and vomiting. Skin: Positive for color change and rash. Objective BP 109/82 Pulse 97 Temp 36.9 C (98.5 F) Resp 20 Wt 68 kg (149 lb 14.6 oz) LMP 11/12/2024 (Exact Date) SpO2 97% Yes BMI 24.20 kg/m Physical Exam Vitals and nursing note reviewed. Exam conducted with a contour stitcher present. Constitutional: General: She is not in acute distress. Appearance: Normal appearance. She is not toxic-appearing. Cardiovascular: Rate and Rhythm: Normal rate and regular rhythm. Pulmonary: Effort: Pulmonary effort is normal. Breath sounds: Normal breath sounds. Chest: Breasts: Right: Skin change and tenderness present. Left: Skin change and tenderness present. Comments: Patient has tenderness of bilateral breasts. She has slightly raised erythematous bumps around bilateral areola's. No drainage or fluctuance. No abscess felt. Skin: General: Skin is warm and dry. Neurological: Mental Status: She is alert. {ASSESSMENT/PLAN: 1. Mastitis - ICD9: 611.0, ICD10: N61.0 (primary diagnosis) -Will cover for mastitis due to breast pain, tenderness. Rx Keflex -Warm compresses to the breasts -Continue pumping 2. Rash - ICD9: 782.1, ICD10: R21 -Rash appears more consistent with a dermatitis or possible nipple candidiasis. Rx for clotrimazoleointment given -Follow-up with mold dresser if symptoms persist Diagnosis and treatment plan were discussed and questions were answered to the patient's satisfaction. Pt acknowledged understanding of concepts and follow up plan. Specific signs and symptoms that would indicate the need for higher level of care were discussed in detail warranting prompt ER evaluation. VALERIA Mcmanus History and Record Review External record(s) reviewed: prior outpatient record. Differential Diagnoses - Mastitis is more likely for the following reason(s): suggested by H&P Disposition The patient was discharged. OTC Medications were advised: Tylenol as needed for pain Procedures documented in this encounterWayne Healthcare [facility] Campus03-20-2025 Telephone encounter Note * Telephone Encounter - Edilberto Bailey RN - 11/05/2024 8:32 AM EDT Patient states she is feeling better this week. Still no thoughts of harming self or others. Still has good support at home. Has not reached out to counselor. Will call if she feels worse prior to next appt. Edilberto Bailey RN [facility]03-20-2025 Miscellaneous Notes* Telephone Encounter - Edilberto Bailey RN - 11/05/2024 8:32 AM EDT Patient states she is feeling better this week. Still no thoughts of harming self or others. Still has good support at home. Has not reached out to counselor. Will call if she feels worse prior to next appt. Edilberto Bailey RN * Telephone Encounter - Toby Rome APRN.CNP - 10/29/2024 3:11 PM EDT Please call patient in 1 week to check on mood. - UMU score 15 - Reports getting good emotional support at home - Declines counseling or medication - Mental health resources provided, including crisis line - Denies thoughts of self harm or thoughts of harming others Toby Rome APRN.CNP documented in this encounter[facility]25 Telephone encounter Note * Telephone Encounter - Toby Rome APRN.CNP - 10/29/2024 3:11 PM EDT Please call patient in 1 week to check on mood. - UMU score 15 - Reports getting good emotional support at home - Declines counseling or medication - Mental health resources provided, including crisis line - Denies thoughts of self harm or thoughts of harming others Toby Rome APRN.CNP [facility]03-13-2025 Instructions* Patient Instructions* Toby Rome APRN.CNP - 10/29/2024 3:06 PM EDT Psychotherapy Services at [facility] Call Behavioral Health Access Line at [phone] to schedule Individual psychotherapy In-person or virtual Wait time for first evaluation may be 12 or more weeks. Wait list spots may be available. Due to the high volume of patients this option is recommended if you are looking for short term acute symptomcoping strategies. 5-360-8-GGWS7BXIB - [place] Maternal Mental Health Hotline If you are in suicidal crisis, please call or text 3-423-432-TALK ( ) or visit the National Suicide Prevention Lifeline website. mchb.[facility].gov If you are in crisis, call 911 or go to your nearest Emergency Department Here are some links for wonderful Providers here in the community and surrounding areas. Do not hesitate to contact their offices, many are offering virtual visits during this time. Psychotherapy Services outside of [facility] Support International Online Provider Directory https://Fracture/ - can assist in finding providers in your area that might be more extensive then the list below. [facility] [place], [place] [address] [place] [address] [facility] [address] [place] [address] [facility] [address] [place] [address] [facility] [address] [place], [place] [id number] Lien Mir MD [address] [place] [address] [facility] [address] [facility], [address] [place] [address] [facility] Psychiatric Services [address] [place] [address] [facility] Counseling Services [place] / [place] [phone]/ [phone] [facility] [address] [facility] [address] [facility] [phone] Aves of Counseling and Mediation [place] / Bev [phone] Behavioral health services of [facility] [address] [place] [address]/ [facility] [phone] MICHAEL Salguero, CHINTAN Pinto and Beyond Family Therapy Workshops, telehealth and at home visits. [phone] Humanistic counseling center 20 locations [facility], [place], [place], [place], [place], [place], [place] [facility], [place], [place], [place], [place], [place], [place], [facility], [place], [place] ,[place], [place], [place],[facility], [place], [place], [facility], [place], [place] www.AdReady [phone] Psychotherapy resources outside of [facility] are listed below [facility] Space Psychotherapy Web: https://www.Wowan365.comclePLYmedia/ Support International Online Provider Directory https://Fracture/ [facility] https://hearo.fm/ Partners [facility] Wellness Web: https://ProBueno/ Greysox Effective Living Web: https://SocialDiabetes.Hyperfair/ LifeStance Web: https://Healthways/location/state/[place]/ [facility] Web: https://www.[facility].org/ [facility] Web: https://Virally.org/ Recovery Resources Mental health and substance abuse help Web: https://www.OnQueue Technologiess.org & RESOURCES Support International Direct peer support and connection to professional resources Non-Emergency Helpline Phone: / Text: [phone] Web: https://www..net/ Online Provider Directory: https://Fracture/ Online Support Meetings: https://www..net/get-help/alw-vjhfud-bcvoglz-meetings/ MISHA Baby and Line Cook Services Web: https://wwwWisair/ Chewse Expert information on medication use during and Text: [phone] Web: https://Essess, Inc/ NATIONAL REGISTRY FOR PSYCHIATRIC MEDICATIONS Currently studying the safety of antidepressants, ADHD medications and atypical antipsychotics taken during TO PARTICIPATE CALL TOLL-FREE: Web: https://womensmentalhealth.org/research/pregnancyregistry/ Support Groups: [facility]- Follow on facebook Baby Bistro support group led by [facility] department Resilient Mamas - Support Group [facility].org The POEM support group [phone] Www.poemonline.org Follow on facebook - LUAN hooper Online support meetings PSI https://www..net/get-help/hre-cdntfc-qzsrhqo-meetings/ [facility] mommy and me virtual support group 11:30-1pm Support for mothers and new babies and toddlers [place] childbirth education: Childbirth @cc.org or call [phone] CRISIS: CRISIS HOTLINE [phone], 911 or go to the nearest . [facility] [phone] / [facility] [phone] https://www.[facility].org Crisis text line text the word HOME to 934350 [facility] [address] naveen [address] [facility] [phone] www.Meta Data Analytics 360 Yasmin Mane clinical counseling [address] [address] www.Exalt Communications [phone] [facility] psychotherapy Ketty Reyez [facility] SHIPPING SUPPORT CLERK-S [address] [facility] www.Eat In Chef [phone]/ [place] [phone] They all offer virtual. All work with trauma Support groups Online support meetings PSI https://www..net/get-help/qqw-cqoztz-eoczmco-meetings/ Here are the support groups they offer: Support of parents of 1 to 4 years old children POEM ( Outreach and Encouragement for Moms) offers free support for mothers experiencing depression, anxiety, and other mood and anxiety disorders. Masks are recommended but not required. No pre-registration required. Babies in arms welcome. meetings now take place on the and Saturday of each month Location: Kuldeep Sanabria [facility] [address] [place] [address] Room 122 (library room) 7-8:00 p.m. When you enter the caodaism parking lot off of [address] the entrance door closest to our meeting room is on the front of the building toward the right. For those who are more comfortable with a virtual platform, [employer] offers online support group options several days of the week. To register for an online group or to find out more about POEM, website at: https://mhaohio.org/get-help/dbdoaewv-qgyeeb-baxxmo/poem-services/ offer a confidential helpline: private Facebook group is called LUAN Hooper Here are the groups they offer: Traumatic childbirth resources: Http://pattch.org/ https://www.hakusuCompassMed.Hyperfair/ Name Location (s) Phone # (s) Services Website Holding [facility]otherapy [address] [place], [place] - [phone]; [address] [phone] In-Person GROUPS INDIVIDUAL THERAPY MATERNAL-INFANT MENTAL HEALTH MEDICATION MANAGEMENT PLAY AND ART THERAPY TELETHERAPY https://www.Raw Science Inc./services/ Malgorzata Banner NORIEGA? [address] [place], [place] [address] ? [address], [address] [place], [place] [address] ? ALEXANDRA [address] [place] [address]? Grief Support Groups Individual Grief Counseling Spiritual Care Memorial Events https://maryjane.[facility].org/grief-services [facility] [address] [place], [place] [address]; ; Email: vicki@[employer] Women's Mental Health; Couples Counseling; Trauma (EMDR); Stress Management; Mood and Anxiety Related Disorders- and much more https://www.Vision Critical familycounsSellABand.Hyperfair/ LifeStance Numerous as they have contract providers: access website to find specific providers nearyou Counseling including CBT and EMDR as well as many more modalities; Medication Management; Telehealth and In-Person https://Healthways/ [facility] Well[facility] [address] [place], [place] [address]; [phone] Personal, Family and Group Therapy; Psychological Testing and Diagnosis; Medication Management; Life and Career Coaching; Psychoanalysis; Literacy Testing; Yoga and Meditation https://ProBueno/ [place] [facility] [address] [facility] [address], [place] [address] [address] ; [address] [facility], [address] [place] [address]; Office # for both sites: Individual and Couples Counseling https://www.ZeroFOX.Hyperfair/paymentinsurance.html OCD & Anxiety [facility] [address] [facility], [address], [place] [address]; Specialize in Cognitive-Behavioral Therapy (CBT) for the treatment of anxiety disorders across the lifespan. TELEHEALTH ONLY. https://ocdandanxietycentKash/faqs [facility] [address] [place], [address] [place] [address] [facility] [place], [address] [place] [address] [facility], [address] [place] [address] [place] [address], [address] [place] [address] [place] [address]. [place], [address] [place] [address] [place], [address] Transportation Services To minimize patient barriers, [facility] provides transportation services to patients who qualify. If you are unable to get to your appointment at any of our facilities, please let us know. Need help now? Stop by one of our walk-in clinics to establish behavioral health care. Counseling Indvidual, Group, Couples and Family Counseling and EMDR. Medication Management Case Management benefits applications housing assistance Substance abuse treatment Medication assisted treatment https://www.[facility].org/mental-health/ [facility] OFFICE AT [facility] [address] [place] [address] [facility] OFFICE [address] [place] [address] [facility] OFFICE [address] [place] [address] [facility] OFFICE (at [facility]) [address] [place] [address] [facility] SYRINGE EXCHANGE PROGRAM & HIV SCREENING [address] [place] [address] V[place] EXCHANGE PROGRAM [address] [place] [address] Behavioral Health Urgent Care: [facility] Sites Counseling Indvidual and Group Medication Management Case Management benefits applications housing assistance Substance abuse treatment Medication assisted treatment Employment Services/ Job Training https://theSIPphone.org/ Recovery Resources [address] [place], [place] [address]: P: [phone] [address] [facility], [address], [place], [place] [address] P: [phone] Our services include: Addiction Mental Health Treatment Assessment Psychiatry Medical Care Employment Housing Drug and Alcohol Prevention HIV/AIDS Prevention https://www.OnQueue Technologiess.org/ [facility] [place] [address] [place] [address] [address] [place], [place] [address] [place] [address] [place] [address] [place] [address] [facility] [address] [place] [address] [place] [address] [place] [address] TMS Therapy/ Counseling Psychocological Testing for ADHD Medication Management In-Person/ Telemedicine https://www.Platter.com/patients-depression Memory & Psychological services [address] [place] [address], [place] [address] Neuropsychological Testing For ADHD https://www.memoryandpsych.com/ [facility] Main Office [address] [place] [address] [phone] Providing mqnm-bf-oyhj and telehealth services. Adult Case Management Community Education and Prevention Employment Outpatient Treatment - Counseling & Psychotherapy Psychiatric Services http://www.[facility].org/ Ebb And Flow Counseling and Wellness [facility] [address] [place] [address] Kenna [facility] [address] [place] [address] Virtual Appointments! Now offering safe and convenient virtual client appointments to anyone in [place]! Individual Therapy Couples/Relationship Therapy Trauma/EMDR Therapy Art Therapy Play Therapy Regional Intermodal Truck Driver Support: Parenting Skills, Parent Child Interaction Therapy, Parent Infant Interaction Therapy Meditation Dietitian/Airline Radio Operator Services Group Therapy Yoga https://www.MedLink/ Sherin Krishnan [phone] Private Practice: Telehealth Only Specializes in EMDR for Trauma None documented in this encounterWayne [facility]-2025 NoteHNO ID: [id number] Author: TOBY ROME APRN.CNP Service: ? Author Type: Nurse Practitioner Type: Progress Notes Filed: 10/29/2024 15:12 Note Text: EARLY VISIT Zain Rose is a 19 year old here for 1 week visit. Delivery Summary: 1 10/22/24 36w4d 2.58 kg (5 lb 11 oz) F Vag-Spont Epidural Living 5 8 Name: Chou Comments: Active labor, EBL 150 ml, midline, periurethral extension/lac and 1st degree Location: [facility] Delivering Clinician: Alison Grimm MD ROS: General: Denies any fever or chills Hypertension Screening: Headache? No. Visual Changes? No Epigastric Pain? No Increased Swelling? No Taking any BP medications at home? No If applicable, monitoring BP at home? (If Yes, include results) NA Mood: anxious Depression: admits to symptoms of anxiety OB Depression and Anxiety Screening- This Encounter (since 10/28/2024) Over the past 2 weeks have you felt down, depressed, or hopeless? Negative Over the past two weeks, have you felt little interest or pleasure in doing things?? Negative Feeling nervous, anxious or on edge 2-More than half the days Not being able to stop or control worrying 2-More than half the days Anxiety Pre-Screening Total (If >/= 3 additional questions will be reviewed) 4 Worrying too much about different things 2-More than half the days Trouble relaxing 1-Several days Being so restless that it is hard to sit still 3-Nearly every day Becoming easily annoyed or irritable 3-Nearly every day Feeling afraid, as if something awful might happen 2-More than half the days Anxiety (UMU) Full Screening Total 15 Feeding: Breast feeding- pumping problems: not latching- pumping and bottle feeding Bladder: No dysuria, gross hematuria, urinary frequency, urinary urgency, or incontinence Bowel symptoms: Negative for abdominal discomfort, blood in stools or black stools + heartburn, nausea in mornings (resolves after pumping) Abdomen: N/A Bleeding:medium flow Bottom and Perineum: Sore (improves with Tylenol) Sleep: no sleep concerns, [place] since delivery: Not resumed Emotional support: Yes Exercise: N/A Other issues: upper right thigh pain that is sometimes numb, intermittent SENSITIVE EXAM: Sensitive exam not performed. PHYSICAL EXAMINATION: BP 98/60 Wt 68.5 kg (151 lb) LMP 2024 (Approximate) Yes BMI 24.37 kg/m? General: pleasant,female in no apparent distress, AANDO x 3. Skin warm and intact. Breast: Deferred Abdomen: Deferred /Incision: N/A Pelvic: Deferred Bimanual: Deferred ASSESSMENT AND PLAN: 19 year old status post with normal course. and course complicated by anxiety. Contraception plan: condoms . Reinforced 6-week pelvic rest. Encouraged condom usage should patient deviate. anxiety - ICD9: 648.44, 300.00, ICD10: O99.345, F41.8 - UMU score 15 - Reports getting good emotional support at home - Declines counseling or medication - Mental health resources provided, including crisis line - Denies thoughts of self harm or thoughts of harming others Pain of right thigh - ICD9: 729.5, ICD10: M79.651 - Denies redness, warmth, swelling - Discussed possible strain with pushing - Recommend care administrative tech - To notify with redness, warmth, swelling, or worsening pain Recommend adding Ibuprofen for perineal soreness. Follow up: Return to Clinic for 6 week [facility] History of Present illness Narrative* Toby Rome APRN.HOG BUYER - 10/29/2024 2:45 PM EDT EARLY VISIT Zain Rose is a 19 year old here for 1 week visit. Delivery Summary: 1 10/22/24 36w4d 2.58 kg (5 lb 11 oz) F Vag-Spont Epidural Living 5 8 Name: Chou Comments: Active labor, EBL 150 ml, midline, periurethral extension/lac and 1st degree Location: [facility] Delivering Clinician: Alison Grimm MD ROS: General: Denies any fever or chills Hypertension Screening: Headache? No. Visual Changes? No Epigastric Pain? No Increased Swelling? No Taking any BP medications at home? No If applicable, monitoring BP at home? (If Yes, include results) NA Mood: anxious Depression: admits to symptoms of anxiety OB Depression and Anxiety Screening- This Encounter (since 10/28/2024) Over the past 2 weeks have you felt down, depressed, or hopeless? Negative Over the past two weeks, have you felt little interest or pleasure in doing things? Negative Feeling nervous, anxious or on edge 2-More than half the days Not being able to stop or control worrying 2-More than half the days Anxiety Pre-Screening Total (If >/= 3 additional questions will be reviewed) 4 Worrying too much about different things 2-More than half the days Trouble relaxing 1-Several days Being so restless that it is hard to sit still 3-Nearly every day Becoming easily annoyed or irritable 3-Nearly every day Feeling afraid, as if something awful might happen 2-More than half the days Anxiety (UMU) Full Screening Total 15 Feeding: Breast feeding- pumping problems: not latching- pumping and bottle feeding Bladder: No dysuria, gross hematuria, urinary frequency, urinary urgency, or incontinence Bowel symptoms: Negative for abdominal discomfort, blood in stools or black stools + heartburn, nausea in mornings (resolves after pumping) Abdomen: N/A Bleeding:medium flow Bottom and Perineum: Sore (improves with Tylenol) Sleep: no sleep concerns, [place] since delivery: Not resumed Emotional support: Yes Exercise: N/A Other issues: upper right thigh pain that is sometimes numb, intermittent SENSITIVE EXAM: Sensitive exam not performed. PHYSICAL EXAMINATION: BP 98/60 Wt 68.5 kg (151 lb) LMP 2024 (Approximate) Yes BMI 24.37 kg/m General: pleasant,female in no apparent distress, A&O x 3. Skin warm and intact. Breast: Deferred Abdomen: Deferred /Incision: N/A Pelvic: Deferred Bimanual: Deferred ASSESSMENT AND PLAN: 19 year old status post with normal course. and course complicated by anxiety. Contraception plan: condoms . Reinforced 6-week pelvic rest. Encouraged condom usage should patientdeviate. anxiety - ICD9: 648.44, 300.00, ICD10: O99.345, F41.8 - UMU score 15 - Reports getting good emotional support at home - Declines counseling or medication - Mental health resources provided, including crisis line - Denies thoughts of self harm or thoughts of harming others Pain of right thigh - ICD9: 729.5, ICD10: M79.651 - Denies redness, warmth, swelling - Discussed possible strain with pushing - Recommend care administrative tech - To notify with redness, warmth, swelling, or worsening pain Recommend adding Ibuprofen for perineal soreness. Follow up: Return to Clinic for 6 week visit and as needed documented in this encounterWayne [facility]-2025 [facility] Medical Records Department [address] [place] [address] Discharge Summary 10/24/24 1002 MR#: [id number] Acct: [id number] Name: ZAIN ROSE GALINDO Rep #: [id number] : 2005 19 From: Peggy Cedillo CNM PCP: Dr. Kuldeep Khan MD Status:ADM IN Location: [facility]669-6 Providers Date of Admission: 10/22/24 Primary Care Physician: Dr. Kuldeep Khan MD Reason For Visit: LABOR AND DELIVERY Diagnosis Discharge Diagnosis (1) (spontaneous vaginal delivery): Status: Acute Code(s): O80 - Encounter for full-term uncomplicated delivery (2) delivery: Status: Acute Code(s): O60.10X0 - labor with delivery, unspecified trimester, not applicable or unspecified (3) Lactating mother: Status: Acute Code(s): Z39.1 - Encounter for care and examination of lactating mother Plan 1) Routine care, PPD #2 2) Vitals signs stable 3) Pain controlled 4) , services PRN 5) D/C to hotel status 6) Follow up in 2 weeks and 6 weeks Medications at Discharge Home Medications vit no.95-ferrous fumarate 28 mg-folic acid 800 mcg tablet () 1 tab PO DAILY 08/24/24 pantoprazole 40 mg tablet,delayed release 40 mg PO DAILY 10/12/24 acetaminophen 500 mg tablet 1,000 mg (2 x 500 mg) PO Q6H PRN PRN Pain 1-10 Or Fever #0 tabs 10/24/24 ibuprofen 600 mg tablet 600 mg PO Q6H PRN PRN Pain Score 1-10 #0 tabs 10/24/24 Weight / BMI Weight Weight: 156 lb 4.924 oz Body Mass Index (BMI) 25.2 ABG / Lab / Microbiology Data 10/22/24 16:40 Microbiology: Microbiology 10/22/24 16:40 Genital vaginal Group B Streptococcus (PCR) - Final D/C Instructions Discharge Diet: No restrictions Discharge Activity: Return to Normal Activity, May Drive, May Shower and May Take a Tub Bath May resume sexual activity in: 6 weeks Weight Bearing Status: Full weight bearing Call your doctor if you observe: Fever of 101 or Higher, Inability to urinate, Using more than 1 pad per hour, Shortness of breath, Chest pain, Increased palpitations (irregular heartbeat), Calf discomfort and Uncontrolled pain DC O2, CPAP, BIPAP Needs Home O2 Discharge instructions: No Please Follow Up With: Peggy Cedillo CNM When: 2 week virtual visit and 6 week visit Meaningful Use Info Meaningful Use Meaningful Use Diagnoses (Choose all that apply): None applicable Ischemic Stroke Statin Dosing Therapy Reference: STATIN DOSE THERAPY REFERENCE: * Patients > 75 years receive moderate or high dose statin therapy. * Patients 75 years or YOUNGER should receive HIGH intensity statin dose unless contraindicated. You will be required to document reason for non-treatment if statin daily dose does not meet guidelines. HIGH DOSE STATIN THERAPY DAILY Atorvastatin > than or = to 40 mg Rosuvastatin > than or = to 20 mg Amlodipine + Atorvastatin > than or = to 2.5/40 mg Ezetimibe + Simvastatin 10/80 mg Simvastatin 80mg Discharge Plan Admission Admit Date/Time: 10/22/24 16:13 Primary Reason for Your Visit: vaginal delivery Attending Provider: Alison Grimm Primary Care Provider: Kuldeep Khan Discharge Orders/Prescriptions Prescriptions: New acetaminophen 500 mg Tablet 1,000 mg PO Q6H PRN PRN (Reason: Pain 1-10 Or Fever) Qty: 0 0RF ibuprofen 600 mg Tablet 600 mg PO Q6H PRN PRN (Reason: Pain Score 1-10) Qty: 0 0RF Continued PNV cmb#95-ferrous fumarate-FA [] 28 mg iron- 800 mcg tablet 1 tab PO DAILY pantoprazole 40 mg tablet,delayed release (DR/EC) 40 mg PO DAILY Discontinued ondansetron 4 mg tablet,disintegrating 4 mg PO Q8H PRN PRN (Reason: nausea) acetaminophen 500 mg tablet 500 mg PO Q6H PRN (Reason: pain) cyclobenzaprine 5 mg Tablet 5 mg PO TID PRN PRN (Reason: Muscle Spasm) Qty: 0 0RF Referrals / Follow Up: Kuldeep Khan MD [Primary Care Provider] - Disposition Disposition (needs filled in before D/C Order can be placed): Home, Self Care 10/24/24 1010 Cosigner Signature (if applicable): CC: ESTELLA Cedillo; Dr. Kuldeep Khan MD [facility]03-07-2025 NoteHNO ID: [id number] Author: ALISON YU RN Service: ? Author Type: Registered Nurse Type: Progress Notes Filed: 10/23/2024 08:46 Note Text: Patient delivered via at [facility] on 10/22/24 per Alison Grimm MD . See OB Outcome note. [facility] History of Present illness Narrative* Alison Yu RN - 10/23/2024 8:44 AM EST Patient delivered via at [facility] on 10/22/24 per Alison Grimm MD . See OB Outcome note. Alison Yu RN documented in this encounterWay[facility]03-[facility]-2025 Progress note* Quick Notes - Belle Carrillo MD - 10/22/2024 2:03 PM EST RR- VB No. LOF No. CTXS yes q 5 min last 24 hrs some are more intense than others. . Movement: present. Other c/o: No. Medication list reviewed. SENSITIVE EXAM: The sensitive examination was discussed with the Patient or Patient's Authorized Surface Plate Inspector. As applicable, any other physician, advance practice provider, medical student, or other health professional student that will be observing or involved in the sensitive examination for educational or training purposes was discussed with the Patient or Authorized Surface Plate Inspector. The Patient or Authorized Surface Plate Inspector has agreed to proceed with the sensitive examination. (Sensitive examination includes inspection and/or palpation of the breasts, pelvis, prostate and anorectal regions). Physical Exam See Flow Sheet Abd: soft, nontender, gravid Ext: edema: Trace A/P 36w4d Estimated Date of Delivery: 11/15/24 Assessment & Plan Supervision of high risk in third trimester Orders: URINE OB DIP B/O 36 weeks gestation of Orders: URINE OB DIP B/O Threatened labor, third trimester Cervical change, bbow, to L&D for likeloy a dmission Belle Carrillo M.D. [facility]03-06-2025 Miscellaneous Notes* Quick Notes - Belle Carrillo MD - 10/22/2024 2:03 PM EST RR- VB No. LOF No. CTXS yes q 5 min last 24 hrs some are more intense than others. . Movement: present. Other c/o: No. Medication list reviewed. SENSITIVE EXAM: The sensitive examination was discussed with the Patient or Patient's Authorized Surface Plate Inspector. As applicable, any other physician, advance practice provider, medical student, or other health professional student that will be observing or involved in the sensitive examination for educational or training purposes was discussed with the Patient or Authorized Surface Plate Inspector. The Patient or Authorized Surface Plate Inspector has agreed to proceed with the sensitive examination. (Sensitive examination includes inspection and/or palpation of the breasts, pelvis, prostate and anorectal regions). Physical Exam See Flow Sheet Abd: soft, nontender, gravid Ext: edema: Trace A/P 36w4d Estimated Date of Delivery: 11/15/24 Assessment & Plan Supervision of high risk in third trimester Orders: URINE OB DIP B/O 36 weeks gestation of Orders: URINE OB DIP B/O Threatened labor, third trimester Cervical change, bbow, to L&D for likeloy a dmission Belle Carrillo M.D. documented in this encounterWayne [facility]03-06-2025 Instructions* Patient Instructions* Mario Alberto Jain MA - 10/22/2024 1:28 PM EST SEQUENTIAL SCREENINGS The [facility] offers sequential screenings for women who are interested in screenings for chromosomal abnormalities and certain defects during a . The sequential screen combinesultrasound and blood tests to determine the risk of chromosomal abnormalities, including Down's Syndrome (Trisomy 21) and Trisomy 18, as well as open neural tube defects including spina bifida. Ultrasound examination is performed between 11 weeks and 13 weeks gestational age. Blood tests are drawn after the ultrasound and again later in the between 15 and 21 weeks gestational age. Please let your physician know if you are interested in this testing. It will require an appointment withour medication reconciliation technician. This is not an ultrasound performed by a physician in our office during a routine visit. SIGNS AND SYMPTOMS OF LABOR 1. Contractions every 10 minutes or more often 2. Clear, pink, or brownish fluid (water) leaking from vagina 3. Feeling that baby is pushing down, pressure 4. Low, dull backache 5. Cramps that feel like a period 6. Cramps with or without diarrhea If you notice any of the above symptoms, contact our office at [phone] and ask to speak with anurse. After hours, you can call doctors registry at [phone] OR call [facility] at [phone] ask to have the doctor solution make up operator paged. If you consider this an emergency, dial 9-1-7 or go to your nearest emergency department. NEED HELP? Are you dealing with a violent or abusive relationship? Are you a victim of rape or sexual assult? Call [facility] 24 hour Crisis Hotline: 581.843.5112 or 648-699-8815. MANUAL Your Guide to a Healthy manual is now on-line. Visit [email or web address] to download your free copy documented in this encounterWayne [facility]03-03-2025 Telephone encounter Note * Telephone Encounter - Carine Doherty RN - 10/19/2024 1:16 PM EST Last OV 10/15/24 with JG.. Next OB appt 10/22/24 with JG. Requested Prescriptions Pending Prescriptions Disp Refills ondansetron (ZOFRAN) 4 mg tablet 30 tablet 0 Sig: Take 1 tablet by mouth every 8 hours as needed for nausea/vomiting. Carine Doherty RN [facility]03-03-2025 Miscellaneous Notes* Telephone Encounter - Carine Doherty RN - 10/19/2024 1:16 PM EST Last OV 10/15/24 with JG.. Next OB appt 10/22/24 with JG. Requested Prescriptions Pending Prescriptions Disp Refills ondansetron (ZOFRAN) 4 mg tablet 30 tablet 0 Sig: Take 1 tablet by mouth every 8 hours as needed for nausea/vomiting. Carine Doherty RN documented in this encounterWayne Healthcare [facility]02-27-2025 Progress note* Quick Notes - Alison Grimm MD - 10/15/2024 4:24 PM EST S: Zain Rose is a 19 year old female who presents at 11/15/2024, by Last Menstrual Period fora routine visit. Denies headache, visual changes, chest pain, shortness of breath, vaginal bleeding, leakage of fluid, or dysuria. Feeling well, no complaints. Good movement, No contractions O: See flow sheet Gen: No apparent distress Abd: Gravid, nontender Done with progesterone after this week. 3 cm at last check. Recent admission for pyelo. Feeling better now. ASSESSMENT/PLAN: 1. 35 weeks gestation of - ICD9: V22.2, ICD10: Z3A.35 (primary diagnosis) PTL precautions - URINE OB DIP B/O 2. Pyelonephritis affecting in third trimester - ICD9: 646.63, 590.80, ICD10: O23.03 Improving. - URINE OB DIP B/O 3. Supervision of high risk in third trimester - ICD9: V23.9, ICD10: O09.93 - URINE OB DIP B/O - ANEMIA REFLEX PANEL 4. Cervix, short (affecting ) - ICD9: 649.70, ICD10: O26.879 Progesterone until 36 weeks - URINE OB DIP B/O Alison Grimm MD [facility]02-27-2025 Miscellaneous Notes* Quick Notes - Alison Grimm MD - 10/15/2024 4:24 PM EST S: Zain Rose is a 19 year old female who presents at 11/15/2024, by Last Menstrual Period fora routine visit. Denies headache, visual changes, chest pain, shortness of breath, vaginal bleeding, leakage of fluid, or dysuria. Feeling well, no complaints. Good movement, No contractions O: See flow sheet Gen: No apparent distress Abd: Gravid, nontender Done with progesterone after this week. 3 cm at last check. Recent admission for pyelo. Feeling better now. ASSESSMENT/PLAN: 1. 35 weeks gestation of - ICD9: V22.2, ICD10: Z3A.35 (primary diagnosis) PTL precautions - URINE OB DIP B/O 2. Pyelonephritis affecting in third trimester - ICD9: 646.63, 590.80, ICD10: O23.03 Improving. - URINE OB DIP B/O 3. Supervision of high risk in third trimester - ICD9: V23.9, ICD10: O09.93 - URINE OB DIP B/O - ANEMIA REFLEX PANEL 4. Cervix, short (affecting ) - ICD9: 649.70, ICD10: O26.879 Progesterone until 36 weeks - URINE OB DIP B/O Alison Grimm MD documented in this encounterWayne [facility]02-27-2025 Instructions* Patient Instructions* Tania Fatima MA - 10/15/2024 3:35 PM EST SEQUENTIAL SCREENINGS The [facility] offers sequential screenings for women who are interested in screenings for chromosomal abnormalities and certain defects during a . The sequential screen combinesultrasound and blood tests to determine the risk of chromosomal abnormalities, including Down's Syndrome (Trisomy 21) and Trisomy 18, as well as open neural tube defects including spina bifida. Ultrasound examination is performed between 11 weeks and 13 weeks gestational age. Blood tests are drawn after the ultrasound and again later in the between 15 and 21 weeks gestational age. Please let your physician know if you are interested in this testing. It will require an appointment withour medication reconciliation technician. This is not an ultrasound performed by a physician in our office during a routine visit. SIGNS AND SYMPTOMS OF LABOR 1. Contractions every 10 minutes or more often 2. Clear, pink, or brownish fluid (water) leaking from vagina 3. Feeling that baby is pushing down, pressure 4. Low, dull backache 5. Cramps that feel like a period 6. Cramps with or without diarrhea If you notice any of the above symptoms, contact our office at [phone] and ask to speak with anurse. After hours, you can call [employer] registry at [phone] OR call [facility] at [phone] ask to have the doctor solution make up operator paged. If you consider this an emergency, dial 9-1-1 or go to your nearest emergency department. NEED HELP? Are you dealing with a violent or abusive relationship? Are you a victim of rape or sexual assult? Call [facility] ([place]) 24 hour Crisis Hotline: 286.904.8236 or 445-956-8910. MANUAL Your Guide to a Healthy manual is now on-line. Visit [email or web address] to download your free copy documented in this encounterWayne Healthcare [facility] Campus02-25-2025 Telephone encounter Note * Telephone Encounter - Edilberto Bailey RN - 10/13/2024 9:43 AM EST L&D aware rx sent to [facility] to notify patient on discharge. Appt note updated. Edilberto Bailey RN [facility]02-25-2025 Miscellaneous Notes* Telephone Encounter - Edilberto Bailey RN - 10/13/2024 9:43 AM EST L&D aware rx sent to [facility] to notify patient on discharge. Appt note updated. Edilberto Bailey RN * Telephone Encounter - Katina Reddy MD - 10/13/2024 9:33 AM EST Medications sent. Please kleber to check anemia reflex panel at visit this week due to anemia at [facility]. Katina Reddy MD * Telephone Encounter - Alison Yu RN - 10/13/2024 9:18 AM EST 35w2d Please send in prescriptions. Thank you. Alison Highman, RN documented in this encounterWayne Healthcare [facility] Campus02-25-2025 Telephone encounter Note * Telephone Encounter - Katina Reddy MD - 10/13/2024 9:33 AM EST Medications sent. Please kleber to check anemia reflex panel at visit this week due to anemia at [facility]. Katina Reddy MD [facility]02-25-2025 Telephone encounter Note* Telephone Encounter - Alison Yu RN - 10/13/2024 9:18 AM EST 35w2d Please send in prescriptions. Thank you. Alison Yu RN [facility]02-25-2025 [facility] Medical Records Department [address] [place] [address] Discharge Summary 10/13/24 0901 MR#: [id number] Acct: [id number] Name: ZAIN ROSE GALINDO Rep #: [id number] : 2005 19 From: Katina Reddy MD PCP: Dr. Kuldeep Khan MD Status:ADM IN Location: [id number] Providers Date of Admission: 10/12/24 Date of Discharge: 10/13/24 Primary Care Physician: Dr. Kuldeep Khan MD Consultations 10/12/24 07:20 Consult: Hospitalist Routine Consulting Provider: Peggy Cedillo Reason for Consult: right lower abdominal pain EMERGENT Consult: Yes Notified: Yes Date Notified: 10/12/24 Time Notified: 07:21 Method of Notification: Text Reason For Visit: ABD PAIN, 3RD TRIMESTER Diagnosis Discharge Diagnosis (1) 35 weeks gestation of : Status: Acute Code(s): Z3A.35 - 35 weeks gestation of (2) Pyelonephritis: Status: Acute Code(s): N12 - Tubulo-interstitial nephritis, not specified as acute or chronic (3) Musculoskeletal pain: Status: Acute Code(s): M79.18 - Myalgia, other site Plan Plan for d/c home on keflex and flexeril. All questions answered and patient agrees with plan. Medications at Discharge Home Medications vit no.95-ferrous fumarate 28 mg-folic acid 800 mcg tablet () 1 tab PO DAILY 08/24/24 acetaminophen 500 mg tablet 500 mg PO Q6H PRN pain 10/10/24 progesterone micronized 200 mg capsule 200 mg vaginal DAILY 10/10/24 pantoprazole 40 mg tablet,delayed release 40 mg PO DAILY 10/12/24 cyclobenzaprine 5 mg tablet 5 mg PO TID PRN PRN Muscle Spasm #0 tabs 10/13/24 Hospital Course Operations None Procedures None Summary of Care Provided Minutes Spent on Discharge: 20 Hospital Course: Patient admitted for flank pain. She received imaging and medications. Weight / BMI Weight Weight: 163 lb Body Mass Index (BMI) 26.3 ABG / Lab / Microbiology Data 10/13/24 06:00 10/13/24 06:00 Laboratory: Laboratory Results - last 24 hr 10/13/24 06:00: WBC 13.4 H, RBC 3.33 L, Hgb 9.6 L, Hct 28.9 L, MCV 86.8, MCH 28.8, MCHC 33.2, RDW Std Deviation 39.2, RDW Coeff of Derek 12.4, Plt Count 176, MPV 11.0, Immature Gran % (Auto) 1.000 H, Neut % (Auto) 81.4 H, Lymph % (Auto) 10.6 L, Meade % (Auto) 6.5, Eos % (Auto) 0.2, Baso % (Auto) 0.3, Absolute Neuts (auto) 10.9 H, Absolute Lymphs (auto) 1.42, Nucleated RBC % 0, Sodium 139, Potassium 3.2 L, Chloride 109 H, Carbon Dioxide 21.0, Anion Gap 9, BUN 3 L, Creatinine 0.32 L, Estim Creat Clear Calc 290.85, Est GFR (MDRD) Af Amer 343, Est GFR (MDRD) Non-Af 284, BUN/Creatinine Ratio 9.5 L , Glucose 78, Calcium 8.4 L, Total Bilirubin 0.40, AST 16, ALT 14, Alkaline Phosphatase 165 H, Total Protein 5.2 L, Albumin 2.2 L, Globulin 3.0, Albumin/Globulin Ratio 0.7 L D/C Instructions Discharge Diet: No restrictions Discharge Activity: May Shower May resume sexual activity in: 1-2 weeks Weight Bearing Status: Weight bearing as tolerated Call your doctor if you observe: Fever of 101 or Higher, Inability to urinate, Fainting spells and Uncontrolled pain DC O2, CPAP, BIPAP Needs Home O2 Discharge instructions: No Please Follow Up With: Suellen Cortes DO When: Keep appointment this week. Meaningful Use Info Meaningful Use Meaningful Use Diagnoses (Choose all that apply): None applicable Ischemic Stroke Statin Dosing Therapy Reference: STATIN DOSE THERAPY REFERENCE: * Patients > 75 years receive moderate or high dose statin therapy. * Patients 75 years or YOUNGER should receive HIGH intensity statin dose unless contraindicated. You will be required to document reason for non-treatment if statin daily dose does not meet guidelines. HIGH DOSE STATIN THERAPY DAILY Atorvastatin > than or = to 40 mg Rosuvastatin > than or = to 20 mg Amlodipine + Atorvastatin > than or = to 2.5/40 mg Ezetimibe + Simvastatin 10/80 mg Simvastatin 80mg Discharge Plan Admission Admit Date/Time: 10/12/24 08:26 Primary Reason for Your Visit: Kidney infection and pain Attending Provider: Thompson Trevino Primary Care Provider: Kuldeep Khan Consulting Providers: Peggy Cedillo Discharge Orders/Prescriptions Prescriptions: New cyclobenzaprine 5 mg Tablet 5 mg PO TID PRN PRN (Reason: Muscle Spasm) Qty: 0 0RF Continued PNV cmb#95-ferrous fumarate-FA [] 28 mg iron- 800 mcg tablet 1 tab PO DAILY acetaminophen 500 mg tablet 500 mg PO Q6H PRN (Reason: pain) progesterone micronized 200 mg capsule 200 mg vaginal DAILY pantoprazole 40 mg tablet,delayed release (DR/EC) 40 mg PO DAILY Referrals / Follow Up: Kuldeep Khan MD [Primary Care Provider] - Disposition Disposition (needs filled in before D/C Order can be placed): Home, Self Care 10/13/24904 Cosigner Sign (more content not included)...[facility]02-12-2025 Progress note* Quick Notes - Seth Castro APRN.CNM - 09/30/2024 4:15 PM EST S: Zain Rose is a 19 year old female who presents at 33 weeks for a routine visit. Positive movements. Continues to have irregular cramps that are painful. Denies headache, visual changes, chest pain, shortness of breath, vaginal bleeding, leakage of fluid, or dysuria. Feeling well, nocomplaints. O: See flow sheet Gen: No apparent distress Abd: Gravid, nontender ASSESSMENT/PLAN: 1. Supervision of high risk in third trimester - ICD9: V23.9, ICD10: O09.93 (primary diagnosis) 2. Anxiety and depression - ICD9: 300.00, 311, ICD10: F41.9, F32.A 3. Cervix, short (affecting ) - ICD9: 649.70, ICD10: O26.879 4. 33 weeks gestation of - ICD9: V22.2, ICD10: Z3A.33 - BMZ x2 previously - PTL precautions and when to call office reviewed - RTO 2 weeks or sooner if needed Seth Castro APRN.CNM [facility]02-12-2025 Miscellaneous Notes* Quick Notes - Seth Castro APRN.CNM - 09/30/2024 4:15 PM EST S: Zain Rose is a 19 year old female who presents at 33 weeks for a routine visit. Positive movements. Continues to have irregular cramps that are painful. Denies headache, visual changes, chest pain, shortness of breath, vaginal bleeding, leakage of fluid, or dysuria. Feeling well, nocomplaints. O: See flow sheet Gen: No apparent distress Abd: Gravid, nontender ASSESSMENT/PLAN: 1. Supervision of high risk in third trimester - ICD9: V23.9, ICD10: O09.93 (primary diagnosis) 2. Anxiety and depression - ICD9: 300.00, 311, ICD10: F41.9, F32.A 3. Cervix, short (affecting ) - ICD9: 649.70, ICD10: O26.879 4. 33 weeks gestation of - ICD9: V22.2, ICD10: Z3A.33 - BMZ x2 previously - PTL precautions and when to call office reviewed - RTO 2 weeks or sooner if needed Seth Castro APRN.CNM documented in this encounterWayne Healthcare [facility]02-12-2025 Instructions* Patient Instructions* Mario Alberto Jain MA - 09/30/2024 4:08 PM EST SEQUENTIAL SCREENINGS The [facility] offers sequential screenings for women who are interested in screenings for chromosomal abnormalities and certain defects during a . The sequential screen combinesultrasound and blood tests to determine the risk of chromosomal abnormalities, including Down's Syndrome (Trisomy 21) and Trisomy 18, as well as open neural tube defects including spina bifida. Ultrasound examination is performed between 11 weeks and 13 weeks gestational age. Blood tests are drawn after the ultrasound and again later in the between 15 and 21 weeks gestational age. Please let your physician know if you are interested in this testing. It will require an appointment withour medication reconciliation technician. This is not an ultrasound performed by a physician in our office during a routine visit. SIGNS AND SYMPTOMS OF LABOR 1. Contractions every 10 minutes or more often 2. Clear, pink, or brownish fluid (water) leaking from vagina 3. Feeling that baby is pushing down, pressure 4. Low, dull backache 5. Cramps that feel like a period 6. Cramps with or without diarrhea If you notice any of the above symptoms, contact our office at [phone] and ask to speak with anurse. After hours, you can call doctors registry at [phone] OR call [facility] at [phone] ask to have the doctor solution make up operator paged. If you consider this an emergency, dial 3--9 or go to your nearest emergency department. NEED HELP? Are you dealing with a violent or abusive relationship? Are you a victim of rape or sexual assult? Call [facility] ([place]) 24 hour Crisis Hotline: 860.860.5125 or 268-508-9653. MANUAL Your Guide to a Healthy manual is now on-line. Visit [email or web address] to download your free copy documented in this encounterWayne Healthcare [facility] Campus02-11-2025 History of Present illness Narrative* Peggy Cardenas, PT - 09/29/2024 4:03 PM EST Program_ID:[id number] Access Code: [email or web address] URL: [email or web address] Date: 09-29-2024 Prepared By: Peggy Cardenas Program Notes Exercises - Standing Thoracic Open Book at Wall - 1-2 x daily - 7 x weekly - 2 sets - 15 reps - Standing Shoulder W at Wall - 1-2 x daily - 7 x weekly - 2 sets - 15 reps - Scapular Protraction at Wall - 1-2 x daily - 7 x weekly - 2 sets - 5 reps - Seated Scapular Retraction - 1-2 x daily - 7 x weekly - 2 sets - 15 reps * Peggy Cardenas, PT - 09/29/2024 3:44 PM EST Images from the original note were not included. Episode Visit Count: 1 Therapist That Will Accept/Oversee The Plan Of Care: Peggy Cardenas Start of Care Date: 09/29/24 Onset Date: 08/29/24 Plan of Care Certification Date: 09/29/24 Next Certification Due Date: 11/10/24 Patient Identified by Name and Date of : Yes REHABILITATION AND SPORTS THERAPY PHYSICAL THERAPY EVALUATION PLAN OF CARE: Assessment: Zain Rose presents with diagnosis of rib pain that interferes with reaching behind back, reaching overhead, use hand with arm at shoulder level . The patient presents with impairments in ADL's, flexibility, independence in exercise, joint mobility, overall function, patient reported outcome measures, range of motion, strength, and symptom management. PROMIS (Patient-Reported Outcomes Measurement Information System) scores were reviewed and identified as a rehabilitation concern. Prognosis for therapy is Good due to: within-session changes . The patient will benefit from skilled therapy services to meet the goals established for this plan of care as noted below. Goals for Episode of Care: established 09/29/24 [place] in home exercise program. Patient will decrease pain rating by 2 points to meet minimal clinical important difference for numeric pain rating scale. Patient will increase active ROM of thoracic spine to minimal to no limitation without increased pain to allow pt to to improve performance of ADLs. Perform crafting with decreased report of symptoms/pain in 6 weeks. Patient Goals: ruduce R side Rib pain Time Frame for Goals and Treatment : 11/10/24 Planned Interventions, Frequency, and Duration: Current Frequency: 1x/week Duration: 6 weeks Total Number of Visits Planned: 6 Planned Treatment Interventions: Therapeutic exercise (04664), Neuromuscular re- education (98386), Manual therapy (83670), Therapeutic activities (86757), Self- prison management (30974), Gait Training (61693) PLAN FOR NEXT VISIT: assess symptom response to thoracic stretching and scapular stabilization strengthening AROM Patient demonstrates good understanding of plan of care and treatment. The above goals and plan of care were discussed and agreed upon by patient/family. SUBJECTIVE: for R side rib pain. Pain improves with laying on the R side. Pt. becomes somewhat worse with taking a deep breath. Pt. is 33 weeks but says she could have her baby any day now. Patient Goals: ruduce R side Rib pain Functional Limitations: reaching behind back, reaching overhead, use hand with arm at shoulder level Prior Level of Function: Independent without limitations Relevant History Employment: Unemployed Recreation / Current Exercise: crafting Intake Information: Prescription present Previous Treatment: None Falls Interview: No positive findings with falls interview Red Flags Vertebral Fracture Red Flags: Female Vertebral Fracture Clinical Reasonin.834 Abdominal Aortic Aneurysm Clinical Reasoning: No identified risk factors. Cancer Clinical Reasoning: No identified risk factors. Infection Clinical Reasoning: No identified risk factors. Cauda Equina Syndrome Clinical Reasoning: No identified risk factors. Red Flags - Cervical Cancer Clinical Reasoning: No identified risk factors. Infection Clinical Reasoning: No identified risk factors. Spine History Pain is Better Always: (R side lying) Pain: Pain Pain Level: 6 Pain Location: (rib R) Description: Aching Frequency: Continuous Post Treatment Pain Post Treatment Pain Level: 5 Post Treatment Pain Location: (R rib pain) PROMIS Scales 09/29/2024 Higher is Better Phys Func - T Score 38 (moderate dysfunction) Phys Func - Percentile 12 Self-Eff Symptom - T Score 41 (Average) Self-Eff Symptom - Percentile 18 Proxy-reported T-scores: mean of general population = 50. 5 points is clinically meaningfully difference Percentiles provide an indication of how the patient's score ranks in relation to the general population. Higher percentile rankings indicate better function/quality of life. 50th percentile is the average of the general population and indicates half of respondents had a worse score. OBJECTIVE MEASURES WITH LEVEL OF FUNCTION: Posture / Alignment Posture: Forward head, Increased thoracic kyphosis, Decreased lumbar lordosis Sitting Posture: Slump Effects of Posture Correction: no effect Sensation - Lumbar Sensation: Grossly Intact Thoracic Spine AROM Thoracic Flexion: Normal Thoracic Extension: Moderate limitation Thoracic Sidebend Right: Increased pain Thoracic Sidebend Left: Abolishes Education: Education Learning Preferences: Demonstration, Explanation, Performance, Printed Materials Barriers: Acuity of Illness Learning/educational needs: Posture, Home exercise program, Plan of Care Education Provided: Yes, see treatment interventions for education provided Education Provided To: Patient Education Mode/Type: Performance, Literature/Printed Materials, Explanation/Discussion, Demonstration Response to Education/Teach Back: States/Identifies, Return Demonstration TREATMENT: PT Treatment Interventions: Therapeutic Exercise, Self-[facility] Management Evaluation Therapeutic Exercise: 1: *Access Code: [email or web address] URL: [email or web address] Date: 09/29/2024 Prepared by: Peggy Ling Exercises - Standing Thoracic Open Book at Wall - 1-2 x daily - 7 x weekly - 2 sets - 15 reps - Standing Shoulder W at Wall - 1-2 x daily - 7 x weekly - 2 sets - 15 reps - Scapular Protraction at Wall - 1-2 x daily - 7 x weekly - 2 sets - 5 reps - 10 hold - Seated Scapular Retraction - 1-2 x daily - 7 x weekly - 2 sets - 15 reps Skilled Intervention: Patient was educated in proper exercise technique and purpose for exercises. Skilled judgment was used in selection of appropriate interventions. Provided written instruction for home exercise program to facilitate proper performance and compliance. Correct performance of therapeutic exercises was facilitated with verbal, visual, and tactile cuing. Educated patient on rationale for performing exercises in regards to decreasing fatigue , increase ease of ADL, and ROM and function . Patient education as noted. Self-[facility] Management: 1: discussed plan to try scapular and thoracic isometrics to reduce rib pain, unable to do joint mobilzatio or manipuation at this time 2: discsussed anatomy and benefit of scapular stabilziation strengthening as it relates to rib pain 3: discussed posture and position to improve symptoms Skilled Intervention: Skilled judgment in the selection of proper modification for activity of daily living/home management based on clinical presentation, deficits, and needs. Provided written instruction for activities of daily living techniques to facilitate proper performance and compliance. Reviewed patient specific diagnosis in relation to activities of daily living/home management. Activity progression based on professional judgement. Moderate verbal cues for maintaining neutral spine alignment. Provided written instruction for home program to facilitate proper performance and compliance. Correct performance of home program was facilitated with verbal, visual, and tactile cueing. Billing * Evaluation Low Complexity: 1 Unit Therapeutic Exercise Treatment Minutes: 10 Self-Care/Home Management Treatment Minutes: 3 Skilled Treatment Time Minutes (timed and untimed codes): 33 Total Session Time (minutes): 33 Session Start Time : 1542 Session Stop Time : 1615 Peggy Cardenas PT documented in this encounterWay[facility] NoteHNO ID: [id number] Author: PEGGY CARDENAS PT Service: ? Author Type: Physical Therapist Type: Progress Notes Filed: 09/29/2024 17:07 Note Text: Episode Visit Count: 1 Therapist That Will Accept/Oversee The Plan Of Care: Peggy Cardenas Start of Care Date: 09/29/24 Onset Date: 08/29/24 Plan of Care Certification Date: 09/29/24 Next Certification Due Date: 11/10/24 Patient Identified by Name and Date of : Yes REHABILITATION AND SPORTS THERAPY PHYSICAL THERAPY EVALUATION PLAN OF CARE: Assessment: Zain Rose presents with diagnosis of rib pain that interferes with reaching behind back, reaching overhead, use hand with arm at shoulder level . The patient presents with impairments in ADL's, flexibility, independence in exercise, joint mobility, overall function, patient reported outcome measures, range of motion, strength, and symptom management. PROMIS? (Patient-Reported Outcomes Measurement Information System) scores were reviewed and identified as a rehabilitation concern. Prognosis for therapy is Good due to: within-session changes . The patient will benefit from skilled therapy services to meet the goals established for this plan of care as noted below. Goals for Episode of Care: established 09/29/24 [place] in home exercise program. Patient will decrease pain rating by 2 points to meet minimal clinical important difference for numeric pain rating scale. Patient will increase active ROM of thoracic spine to minimal to no limitation without increased pain to allow pt to to improve performance of ADLs. Perform crafting with decreased report of symptoms/pain in 6 weeks. Patient Goals: ruduce R side Rib pain Time Frame for Goals and Treatment : 11/10/24 Planned Interventions, Frequency, and Duration: Current Frequency: 1x/week Duration: 6 weeks Total Number of Visits Planned: 6 Planned Treatment Interventions: Therapeutic exercise (40560), Neuromuscular re-education (17945), Manual therapy (32476), Therapeutic activities (56884), Self-prison management (84921), Gait Training (58127) PLAN FOR NEXT VISIT: assess symptom response to thoracic stretching and scapular stabilization strengthening AROM Patient demonstrates good understanding of plan of care and treatment. The above goals and plan of care were discussed and agreed upon by patient/family. SUBJECTIVE: for R side rib pain. Pain improves with laying on the R side. Pt. becomes somewhat worse with taking a deep breath. Pt. is 33 weeks but says she could have her baby any day now. Patient Goals: ruduce R side Rib pain Functional Limitations: reaching behind back, reaching overhead, use hand with arm at shoulder level Prior Level of Function: Independent without limitations Relevant History Employment: Unemployed Recreation / Current Exercise: crafting Intake Information: Prescription present Previous Treatment: None Falls Interview: No positive findings with falls interview Red Flags Vertebral Fracture Red Flags: Female Vertebral Fracture Clinical Reasonin.834 Abdominal Aortic Aneurysm Clinical Reasoning: No identified risk factors. Cancer Clinical Reasoning: No identified risk factors. Infection Clinical Reasoning: No identified risk factors. Cauda Equina Syndrome Clinical Reasoning: No identified risk factors. Red Flags - Cervical Cancer Clinical Reasoning: No identified risk factors. Infection Clinical Reasoning: No identified risk factors. Spine History Pain is Better Always: (R side lying) Pain: Pain Pain Level: 6 Pain Location: (rib R) Description: Aching Frequency: Continuous Post Treatment Pain Post Treatment Pain Level: 5 Post Treatment Pain Location: (R rib pain) PROMIS Scales 09/29/2024 Higher is Better Phys Func - T Score 38 (moderate dysfunction) Phys Func - Percentile 12 Self-Eff Symptom - T Score 41 (Average) Self-Eff Symptom - Percentile 18 Proxy-reported T-scores: mean of general population = 50. 5 points is clinically meaningfully difference Percentiles provide an indication of how the patient's score ranks in relation to the general population. Higher percentile rankings indicate better function/quality of life. 50th percentile is the average of the general population and indicates half of respondents had a worse score. OBJECTIVE MEASURES WITH LEVEL OF FUNCTION: Posture / Alignment Posture: Forward head, Increased thoracic kyphosis, Decreased lumbar lordosis Sitting Posture: Slump Effects of Posture Correction: no effect Sensation - Lumbar Sensation: Grossly Intact Thoracic Spine AROM Thoracic Flexion: Normal Thoracic Extension: Moderate limitation Thoracic Sidebend Right: Increased pain Thoracic Sidebend Left: Abolishes Education: Education Learning Preferences: Demonstration, Explanation, Performance, Printed Materials Barriers: Acuity of Illness Learning/educational needs: Posture, Home exer (more content not included)... [facility]02-05-2025 Progress note* Quick Notes - Peggy Cedillo APRN.CNM - 09/23/2024 3:39 PM EST SHANIQUE-S: Zain Rose is a 19 year old female who presents at 32w3d with BOGDAN:11/15/2024, by Last Menstrual Period for a routine visit. Denies headache, visual changes, chest pain, shortness of breath, vaginal bleeding, leakage of fluid, or dysuria. Having increased pelvic pressure and pain, denies any urinary symptoms. Denies contractions or rhythmic timetable contractions. O: See flow sheet Gen: No apparent distress Abd: Gravid, nontender Participation of a fellow, resident, medical student, or advanced practice provider student in performing the sensitive examination was discussed with the patient or authorized sales representative public utilities. The patient or authorized sales representative public utilities has agreed to proceed with the sensitive examination. (Sensitive examination includes inspection and/or palpation of the breasts, pelvis, prostate and anorectal regions) ASSESSMENT/PLAN: 1. Supervision of high risk in third trimester -Continue PNV 2. 32 weeks gestation of 3. Cervix, short (affecting ) 4. Threatened premature labor, antepartum -BMZ x2 previously -Continue progesterone vaginally -Reviewed PTL precautions and when to call -Urine culture 5. Anxiety and depression PTL precautions reviewed and when to call RTO as scheduled Peggy Cedillo APRN.CNM [facility]02-05-[facility] Miscellaneous Notes* Quick Notes - Peggy Cedillo APRN.CNM - 09/23/2024 3:39 PM EST SHANIQUE-S: Zain Rose is a 19 year old female who presents at 32w3d with BOGDAN:11/15/2024, by Last Menstrual Period for a routine visit. Denies headache, visual changes, chest pain, shortness of breath, vaginal bleeding, leakage of fluid, or dysuria. Having increased pelvic pressure and pain, denies any urinary symptoms. Denies contractions or rhythmic timetable contractions. O: See flow sheet Gen: No apparent distress Abd: Gravid, nontender Participation of a fellow, resident, medical student, or advanced practice provider student in performing the sensitive examination was discussed with the patient or authorized sales representative public utilities. The patient or authorized sales representative public utilities has agreed to proceed with the sensitive examination. (Sensitive examination includes inspection and/or palpation of the breasts, pelvis, prostate and anorectal regions) ASSESSMENT/PLAN: 1. Supervision of high risk in third trimester -Continue PNV 2. 32 weeks gestation of 3. Cervix, short (affecting ) 4. Threatened premature labor, antepartum -BMZ x2 previously -Continue progesterone vaginally -Reviewed PTL precautions and when to call -Urine culture 5. Anxiety and depression PTL precautions reviewed and when to call RTO as scheduled Peggy Cedillo APRN.CNM documented in this encounterWayne [facility]02-05-2025 Instructions* Patient Instructions* Ivanna García MA - 09/23/2024 3:18 PM EST SEQUENTIAL SCREENINGS [facility] offers sequential screenings for women who are interested in screenings for chromosomal abnormalities and certain defects during a . The sequential screen combinesultrasound and blood tests to determine the risk of chromosomal abnormalities, including Down's Syndrome (Trisomy 21) and Trisomy 18, as well as open neural tube defects including spina bifida. Ultrasound examination is performed between 11 weeks and 13 weeks gestational age. Blood tests are drawn after the ultrasound and again later in the between 15 and 21 weeks gestational age. Please let your physician know if you are interested in this testing. It will require an appointment withour medication reconciliation technician. This is not an ultrasound performed by a physician in our office during a routine visit. SIGNS AND SYMPTOMS OF LABOR 1. Contractions every 10 minutes or more often 2. Clear, pink, or brownish fluid (water) leaking from vagina 3. Feeling that baby is pushing down, pressure 4. Low, dull backache 5. Cramps that feel like a period 6. Cramps with or without diarrhea If you notice any of the above symptoms, contact our office at [phone] and ask to speak with anurse. After hours, you can call doctors registry at [phone] OR call [facility] at [phone] ask to have the doctor solution make up operator paged. If you consider this an emergency, dial 9-1-1 or go to your nearest emergency department. NEED HELP? Are you dealing with a violent or abusive relationship? Are you a victim of rape or sexual assult? Call [facility] [place] ([facility] 24 hour Crisis Hotline: 581.197.2931 or 099-567-4680. MANUAL Your Guide to a Healthy manual is now on-line. Visit [email or web address] to download your free copy documented in this encounterWayne [facility]01-28-2025 Progress note* Quick Notes - Thompson Gonzalez MD - 09/15/2024 4:36 PM EST DM- follow up from ER for n/v. Pt reports using zofran every 8 hrs- last time she vomited was > 24hrs ago. Denies vaginal Bleeding, Leaking fluid, or regular Contractions. Pt reports good movement Physical Exam: Gen: female in no apparent distress Abd: soft, Gravid. Non tender to palpation. See flow sheet @ 31.2 weeks Assessment & Plan Nausea and vomiting in Orders: ondansetron (ZOFRAN) 4 mg tablet; Take 1 tablet by mouth every 8 hours as needed for nausea/vomiting. small frequent meals/fluids reviewed Cervix, short (affecting ) Orders: URINE OB DIP B/O continue prometrium Supervision of high risk in third trimester Orders: URINE OB DIP B/O 31 weeks gestation of Orders: URINE OB DIP B/O follow up as scheduled Thompson Trevino MD [facility]01-28-2025 Miscellaneous Notes* Quick Notes - Thompson Gonzalez MD - 09/15/2024 4:36 PM EST DM- follow up from ER for n/v. Pt reports using zofran every 8 hrs- last time she vomited was > 24hrs ago. Denies vaginal Bleeding, Leaking fluid, or regular Contractions. Pt reports good movement Physical Exam: Gen: female in no apparent distress Abd: soft, Gravid. Non tender to palpation. See flow sheet @ 31.2 weeks Assessment & Plan Nausea and vomiting in Orders: ondansetron (ZOFRAN) 4 mg tablet; Take 1 tablet by mouth every 8 hours as needed for nausea/vomiting. small frequent meals/fluids reviewed Cervix, short (affecting ) Orders: URINE OB DIP B/O continue prometrium Supervision of high risk in third trimester Orders: URINE OB DIP B/O 31 weeks gestation of Orders: URINE OB DIP B/O follow up as scheduled Thompson Trevino MD documented in this encounterWayne [facility]01-28-2025 Instructions* Patient Instructions* Kate Guo LPN - 09/15/2024 3:50 PM EST SEQUENTIAL SCREENINGS [facility] offers sequential screenings for women who are interested in screenings for chromosomal abnormalities and certain defects during a . The sequential screen combinesultrasound and blood tests to determine the risk of chromosomal abnormalities, including Down's Syndrome (Trisomy 21) and Trisomy 18, as well as open neural tube defects including spina bifida. Ultrasound examination is performed between 11 weeks and 13 weeks gestational age. Blood tests are drawn after the ultrasound and again later in the between 15 and 21 weeks gestational age. Please let your physician know if you are interested in this testing. It will require an appointment withour medication reconciliation technician. This is not an ultrasound performed by a physician in our office during a routine visit. SIGNS AND SYMPTOMS OF LABOR 1. Contractions every 10 minutes or more often 2. Clear, pink, or brownish fluid (water) leaking from vagina 3. Feeling that baby is pushing down, pressure 4. Low, dull backache 5. Cramps that feel like a period 6. Cramps with or without diarrhea If you notice any of the above symptoms, contact our office at [phone] and ask to speak with anurse. After hours, you can call doctors registry at [phone] OR call [facility] at [phone] ask to have the doctor solution make up operator paged. If you consider this an emergency, dial 6-9-8 or go to your nearest emergency department. NEED HELP? Are you dealing with a violent or abusive relationship? Are you a victim of rape or sexual assult? Call [facility] ([place]) 24 hour Crisis Hotline: 624.886.2250 or 729-200-2948. MANUAL Your Guide to a Healthy manual is now on-line. Visit [email or web address] to download your free copy documented in this encounterWayne [facility]01-27-2025 Telephone encounter Note * Telephone Encounter - Matt Lewis RN - 09/14/2024 3:38 PM EST Patient called and appointment scheduled. Matt Lewis RN [facility]01-27-2025 Miscellaneous Notes* Telephone Encounter - Matt Lewis RN - 09/14/2024 3:38 PM EST Patient called and appointment scheduled. Matt Lewis RN * Telephone Encounter - Peggy Cedillo APRN.CNM - 09/14/2024 3:25 PM EST If we can see her tomorrow or Saturday if possible. Thanks, Peggy Cedillo APRN.CNM * Telephone Encounter - Alison Yu RN - 09/14/2024 2:29 PM EST 31w1d Patient states that she has not been able to keep any food/fluids down since last night. So far [facility] she ate 30 min ago has stayed down. She went to [facility] ER on Saturday for IV hydration. She was given RX for Zofran and has not yet picked it up. Highly encouraged she pick up attendant the RX. Patient was on Zofran pump and was d/c in Nov. Aware she needs to return to ER if it's been 24 hours or more since she last kept something down. Next OB visit is 09/23. Does patient need seen sooner? Alison Yu RN documented in this encounterWayne [facility]01-27-2025 Telephone encounter Note * Telephone Encounter - Peggy Cedillo APRN.CNM - 09/14/2024 3:25 PM EST If we can see her tomorrow or Saturday if possible. Thanks, Peggy Cedillo APRN.CNM [facility]01-27-2025 Telephone encounter Note* Telephone Encounter - Alison Yu RN - 09/14/2024 2:29 PM EST 31w1d Patient states that she has not been able to keep any food/fluids down since last night. So far the[place]enson she ate 30 min ago has stayed down. She went to [facility] ER on Saturday for IV hydration. She was given RX for Zofran and has not yet picked it up. Highly encouraged she pick up attendant the RX. Patient was on Zofran pump and was d/c in Jun. Aware she needs to return to ER if it's been 24 hours or more since she last kept something down. Next OB visit is 09/23. Does patient need seen sooner? Alison Yu, RN [facility]01-21-2025 Progress note* Quick Notes - Belle Carrillo MD - 09/08/2024 3:32 PM EST RR- VB No. LOF No. CTXS only a few a day Movement: present. Other c/o: No. Medication list reviewed. SENSITIVE EXAM: Sensitive exam not performed. Physical Exam See Flow Sheet Abd: soft, nontender, gravid Ext: edema: Trace A/P 30w2d Estimated Date of Delivery: 11/15/24 some rib pain, hard to sit comfortable, No cough, SOB. No trauma to the area. declines tdap declines flu vaccine f/u in 2 weeks or prn rib pain- refer to chiropractor or sports medicine or PT to see if can get some relief Threatened premature labor, antepartum Orders: URINE OB DIP B/O Cervix, short (affecting ) Orders: URINE OB DIP B/O 30 weeks gestation of Orders: URINE OB DIP B/O Supervision of high risk in third trimester Orders: URINE OB DIP B/O Belle Kb, M.D. [facility]01-21-2025 Miscellaneous Notes* Quick Notes - Belle Carrillo MD - 09/08/2024 3:32 PM EST RR- VB No. LOF No. CTXS only a few a day Movement: present. Other c/o: No. Medication list reviewed. SENSITIVE EXAM: Sensitive exam not performed. Physical Exam See Flow Sheet Abd: soft, nontender, gravid Ext: edema: Trace A/P 30w2d Estimated Date of Delivery: 11/15/24 <!--RTF_S--> some rib pain, hard to sit comfortable, No cough, SOB. No trauma to the area. declines tdap declines flu vaccine f/u in 2 weeks or prn rib pain- refer to chiropractor or sports medicine or PT to see if can get some relief Threatened premature labor, antepartum Orders: URINE OB DIP B/O Cervix, short (affecting ) Orders: URINE OB DIP B/O 30 weeks gestation of Orders: URINE OB DIP B/O Supervision of high risk in third trimester Orders: URINE OB DIP B/O <!--RTF_E--> Belle Carrillo M.D. documented in this encounterWayne [facility]01-21-2025 Instructions* Patient Instructions* Ivanna García MA - 09/08/2024 3:12 PM EST SEQUENTIAL SCREENINGS [facility] offers sequential screenings for women who are interested in screenings for chromosomal abnormalities and certain defects during a . The sequential screen combinesultrasound and blood tests to determine the risk of chromosomal abnormalities, including Down's Syndrome (Trisomy 21) and Trisomy 18, as well as open neural tube defects including spina bifida. Ultrasound examination is performed between 11 weeks and 13 weeks gestational age. Blood tests are drawn after the ultrasound and again later in the between 15 and 21 weeks gestational age. Please let your physician know if you are interested in this testing. It will require an appointment withour medication reconciliation technician. This is not an ultrasound performed by a physician in our office during a routine visit. SIGNS AND SYMPTOMS OF LABOR 1. Contractions every 10 minutes or more often 2. Clear, pink, or brownish fluid (water) leaking from vagina 3. Feeling that baby is pushing down, pressure 4. Low, dull backache 5. Cramps that feel like a period 6. Cramps with or without diarrhea If you notice any of the above symptoms, contact our office at [phone] and ask to speak with anurse. After hours, you can call doctors registry at [phone] OR call [facility] at [phone] ask to have the doctor solution make up operator paged. If you consider this an emergency, dial [phone] or go to your nearest emergency department. NEED HELP? Are you dealing with a violent or abusive relationship? Are you a victim of rape or sexual assult? Call [facility] ([place]) 24 hour Crisis Hotline: 881.926.2522 or 436-827-6579. MANUAL Your Guide to a Healthy manual is now on-line. Visit [email or web address] to download your free copy documented in this encounterWayne [facility]01-08-2025 Telephone encounter Note * Telephone Encounter - Matt Lewis RN - 08/26/2024 11:39 AM EST Patient notified and voiced understanding. Matt Lewis RN [facility]01-08-2025 Miscellaneous Notes* Telephone Encounter - Matt Lewis RN - 08/26/2024 11:39 AM EST Patient notified and voiced understanding. Matt Lewis RN * Telephone Encounter - Alison Grimm MD - 08/26/2024 11:25 AM EST She needs to start with her HR department. They more than likely have FMLA paperwork that would be needed for light duty or off completely. Either way she only get 12 weeks of FMLA. They will not hold her job for her after that. * Telephone Encounter - Matt Lewis RN - 08/26/2024 10:46 AM EST Called patient to inquire what she needs letter to address for work. Patient states she wants letter stating that she should not be working because she is on her feet all day. Discussed with patient not working and light duty are two different things and that this would have to be approved by doctor. Can you address? Patient has next appointment on 09/08/24. Matt Lewis RN * Telephone Encounter - Alison Grimm MD - 08/26/2024 9:33 AM EST She can have a letter for whatever qualifies as light duty for her work * Telephone Encounter - Edilberto Bailey RN - 08/25/2024 4:46 PM EST 28w2d Patient stopped at front attendant after betamethasone injection visit today. Asking for letter for sometype of light duty at work. She was discharged from [facility] d/t PTL. 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 Didn't have specific requests. Aware note being sent to solution make up operator provider to review tomorrow d/t time of day. Edilberto Bailey RN documented in [facility] Telephone encounter Note * Telephone Encounter - Alison Grimm MD - 08/26/2024 11:25 AM EST She needs to start with her HR department. They more than likely have FMLA paperwork that would be needed for light duty or off completely. Either way she only get 12 weeks of FMLA. They will not hold her job for her after that. [facility] Work Phone: [phone] Telephone encounter Note* Telephone Encounter - Matt Lewis RN - 08/26/2024 10:46 AM EST Called patient to inquire what she needs letter to address for work. Patient states she wants letter stating that she should not be working because she is on her feet all day. Discussed with patient not working and light duty are two different things and that this would have to be approved by doctor. Can you address? Patient has next appointment on 09/08/24. Matt Lewis RN [facility]01-08-2025 NoteHNO ID: [id number] Author: PAULA RAMOS RN Service: ? Author Type: Registered Nurse Type: Progress Notes Filed: 08/26/2024 12:57 Note Text: TRANSITION CARE MANAGEMENT (TCM) INITIAL CONTACT Provider Action/FYI: RN PCC spoke with patient for TCM follow up. Patient reports she is doing well today, has only had a couple contractions today, no fever, no bleeding, no vaginal discharge, does not think her water has broken. Patient reports a little nausea, no vomiting, eating, drinking, voiding, and stooling normally. Additional concerning symptoms denied at this time. Medications reviewed. Betamethasone injection given yesterday. Follow up appointments reviewed. RN encouraged patient to return to Emergency Department for urgent concerns (including vaginal bleeding, ROM, difficulty breathing), call OB office for less urgent symptom concerns, call this RN for non-urgent needs. Patient verbalizes understanding and denies additional questions or concerns at this time. RN PCC contact info provided. Will follow up and remain available for assistance as needed during the TCM period. Initial contact with patient post discharge, spoke to patient. Patient identified by name and . TCM Eligibility Documentation The following information was gathered during patient outreach 08/26/2024 Date of Outreach: Outreach Attempt 1: Contact Made Date of Discharge 08/25/2024 SUMMARY: -Pt discharged from [facility] on 08/25/24, after 15 hours. -Follow up appointment on Appointments for Next 60 Days Date Time Provider Location Dept Phone 09/08/2024 3:10 PM BELLE CARRILLO Sotero Castano [phone] -Medication review done RN reviewed with patient. -Admitted for: contractions CONCERNS: Patient denies concerns at this time. NEW MEDICATIONS: None Noted. MEDS HELD/DISCONTINUED: None Noted. BRIEF HOSPITAL COURSE: 19 year old EGA:28w2d. Admitted for contractions. Assessment AND Plan contractions - contractions recurring today, last contraction occurred in ambulance during transfer, rated an 8/10 - Reports no contractions since presenting to [facility] - Vital Signs Stable - No contractions on [place] - Repeat Cervical exam: fingertip Plan: - Regular Diet - Stop Mag sulfate - 2nd dose of BMZ on 08/25 Prematurity of fetus - Transverse lie on US - US 20w2d 12oz 38%, AC 77% - First dose of BMZ given 08/24 at 1630, second dose on 08/25 at 1630. - NST daily - NICU to be consulted if concerned for labor Cervix, short (affecting ) - 23.8mm on 07/13 - Continue Prometrium 200mg vaginally Heartburn during in third trimester - daily Protonix ADHD (attention deficit hyperactivity disorder) - no medication Anxiety and depression - no medications - mood stable Family history of deafness - FOB - Unknown etiology DISCHARGE NOTE (Patient Admitted Less than 48 Hours) SERVICE DATE: 08/25/2024 SERVICE TIME: 10:01 AM ADMISSION DATE: 08/24/2024 DISCHARGE DISPOSITION: Home with Self Care DIET: Regular ACTIVITY AFTER DISCHARGE: Resume pre-hospital activity FOLLOW UP CARE REQUIRED: Appointment today for 2nd dose of betamethasone. Follow up within 2 weeks for regular care with primary crewman main battle tank FINAL DIAGNOSIS: contractions Information above from review of EMR and discharge summary Paula Ramos RN, BSN, PCCUniversity [facility]01-[facility] History of Present illness Narrative* Paula Ramos RN - 08/26/2024 9:48 AM EST Images from the original note were not included. TRANSITION CARE MANAGEMENT (TCM) INITIAL CONTACT Provider Action/FYI: RN PCC spoke with patient for TCM follow up. Patient reports she is doing well today, has only had a couple contractions today, no fever, no bleeding, no vaginal discharge, does not think her water has broken. Patient reports a little nausea, no vomiting, eating, drinking, voiding, and stooling normally. Additional concerning symptoms denied at this time. Medications reviewed. Betamethasone injection given yesterday. Follow up appointments reviewed. RN encouraged patient to return to Emergency Department for urgent concerns (including vaginal bleeding, ROM, difficulty breathing), call OB office for less urgent symptom concerns, call this RN for non-urgent needs. Patient verbalizes understanding and denies additional questions or concerns at this time. RN PCC contact info provided. Will follow up and remain available for assistance as needed during the TCM period. Initial contact with patient post discharge, spoke to patient. Patient identified by name and . TCM Eligibility Documentation The following information was gathered during patient outreach 08/26/2024 Date of Outreach: Outreach Attempt 1: Contact Made Date of Discharge 08/25/2024 SUMMARY: -Pt discharged from [facility] on 08/25/24, after 15 hours. -Follow up appointment on Appointments for Next 60 Days Date Time Provider Location Dept Phone 09/08/2024 3:10 PM BELLE CARRILLO [phone] -Medication review done RN reviewed with patient. -Admitted for: contractions CONCERNS: Patient denies concerns at this time. NEW MEDICATIONS: None Noted. MEDS HELD/DISCONTINUED: None Noted. BRIEF HOSPITAL COURSE: 19 year old EGA:28w2d. Admitted for contractions. Assessment & Plan contractions - contractions recurring today, last contraction occurred in ambulance during transfer, rated an 8/10 - Reports [facility] contractions [facility] - Vital Signs Stable - No contractions on [place] - Repeat Cervical exam: fingertip Plan: - Regular Diet - Stop Mag sulfate - 2nd dose of BMZ on 08/25 Prematurity of fetus - Transverse lie on US - US 20w2d 12oz 38%, AC 77% - First dose of BMZ given 08/24 at 1630, second dose on 08/25 at 1630. - NST daily - NICU to be consulted if concerned for labor Cervix, short (affecting ) - 23.8mm on 07/13 - Continue Prometrium 200mg vaginally Heartburn during in third trimester - daily Protonix ADHD (attention deficit hyperactivity disorder) - no medication Anxiety and depression - no medications - mood stable Family history of deafness - FOB - Unknown etiology DISCHARGE NOTE (Patient Admitted Less than 48 Hours) SERVICE DATE: 08/25/2024 SERVICE TIME: 10:01 AM ADMISSION DATE: 08/24/2024 DISCHARGE DISPOSITION: Home with Self Care DIET: Regular ACTIVITY AFTER DISCHARGE: Resume pre-hospital activity FOLLOW UP CARE REQUIRED: Appointment today for 2nd dose of betamethasone. Follow up within 2 weeks for regular care with primary crewman main battle tank FINAL DIAGNOSIS: contractions Information above from review of EMR and discharge summary Paula Ramos RN, BSN, PCC documented in this encounterWay[facility]01-08-2025 Telephone encounter Note * Telephone Encounter - Alison Grimm MD - 08/26/2024 9:33 AM EST She can have a letter for whatever qualifies as light duty for her work [facility]01-08-[facility]25 NotePatient Outreach ([facility]) ZAIN ROSE ([id number]) 5 F Date Time Provider Department 08/26/24 PAULA RAMOS [facility] During your visit today, we recorded the following information about you: Paula Ramos RN 08/26/2024 12:57 PM Signed TRANSITION CARE MANAGEMENT (TCM) INITIAL CONTACT Provider Action/FYI: RN PCC spoke with patient for TCM follow up. Patient reports she is doing well today, has only had a couple contractions today, no fever, no bleeding, no vaginal discharge, does not think her water has broken. Patient reports a little nausea, no vomiting, eating, drinking, voiding, and stooling normally. Additional concerning symptoms denied at this time. Medications reviewed. Betamethasone injection given yesterday. Follow up appointments reviewed. RN encouraged patient to return to Emergency Department for urgent concerns (including vaginal bleeding, ROM, difficulty breathing), call OB office for less urgent symptom concerns, call this RN for non-urgent needs. Patient verbalizes understanding and denies additional questions or concerns at this time. RN PCC contact info provided. Will follow up and remain available for assistance as needed during the TCM period. Initial contact with patient post discharge, spoke to patient. Patient identified by name and . TCM Eligibility Documentation The following information was gathered during patient outreach 08/26/2024 Date of Outreach: Outreach Attempt 1: Contact Made Date of Discharge 08/25/2024 SUMMARY: -Pt discharged from [facility] on 08/25/24, after 15 hours. -Follow up appointment on Appointments for Next 60 Days Date Time Provider Location Dept Phone 09/08/2024 3:10 PM BELLE CARRILLO [phone] -Medication review done RN reviewed with patient. -Admitted for: contractions CONCERNS: Patient denies concerns at this time. NEW MEDICATIONS: None Noted. MEDS HELD/DISCONTINUED: None Noted. BRIEF HOSPITAL COURSE: 19 year old EGA:28w2d. Admitted for contractions. Assessment AND Plan contractions - contractions recurring today, last contraction occurred in ambulance during transfer, rated an 8/10 - Reports no contractions since presenting to [facility] - Vital Signs Stable - No contractions on [place] - Repeat Cervical exam: fingertip Plan: - Regular Diet - Stop Mag sulfate - 2nd dose of BMZ on 08/25 Prematurity of fetus - Transverse lie on US - US 20w2d 12oz 38%, AC 77% - First dose of BMZ given 08/24 at 1630, second dose on 08/25 at 1630. - NST daily - NICU to be consulted if concerned for labor Cervix, short (affecting ) - 23.8mm on 07/13 - Continue Prometrium 200mg vaginally Heartburn during in third trimester - daily Protonix ADHD (attention deficit hyperactivity disorder) - no medication Anxiety and depression - no medications - mood stable Family history of deafness - FOB - Unknown etiology DISCHARGE NOTE (Patient Admitted Less than 48 Hours) SERVICE DATE: 08/25/2024 SERVICE TIME: 10:01 AM ADMISSION DATE: 08/24/2024 DISCHARGE DISPOSITION: Home with Self Care DIET: Regular ACTIVITY AFTER DISCHARGE: Resume pre-hospital activity FOLLOW UP CARE REQUIRED: Appointment today for 2nd dose of betamethasone. 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 contractions 08/25/24, 15 hours Prescriptions as of 08/26/2024 - betamethasone acetate-betamethasone sodium phosphate (CELESTONE) 6 mg/mL injection Inject 2 mL intramuscularly every 24 hours for 2 days. - pantoprazole DR (PROTONIX) 40 mg tablet Take 1 tablet by mouth once daily. - progesterone micronized (PROMETRIUM) 200 mg capsule Use 1 capsule vaginally once daily. - ondansetron (ZOFRAN) 4 mg tablet Take 4 mg by mouth every 8 hours as needed for nausea/vomiting. - PNV/iron,carb/docusat/folic ac (PRENA-CAP ORAL) Take 1 tablet by mouth once daily. Problem List As Of Date 08/26/2024 Noted Resolved ADHD (attention deficit hyperactivity disorder)*08/28/2011 with uncertain dates in first trimest*03/27/2024 Supervision of high risk in second tr*03/27/2024 Family history of deafness [Z82.2] 03/27/2024 Hyperemesis gravidarum [O21.0] 03/27/2024 Heartburn during in third trimester [*03/27/2024 Anxiety during [O99.340, F41.9] 03/27/2024 Depression affecting in second trimes*05/22/2024 Cervix, short (affecting ) [O2 (more content not included)...[facility]01-07-2025 Telephone encounter Note* Telephone Encounter - Edilberto Bailey RN - 08/25/2024 4:46 PM EST 28w2d Patient stopped at front attendant after betamethasone injection visit today. Asking for letter for sometype of light duty at work. She was discharged from [facility] d/t PTL. 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 Didn't have specific requests. Aware note being sent to solution make up operator provider to review tomorrow d/t time of day. Edilberto Bailey RN [facility]01-07-2025 NoteHNO ID: [id number] Author: ALISON YU RN Service: ? Author Type: Registered Nurse Type: Progress Notes Filed: 08/25/2024 16:42 Note Text: The patient is here for 2nd injection of Betamethasone. Dose: 12mg/2ml Amount wasted: none. Route: Intramuscular Site: right upper quadrant gluteus Inspecting Machine Adjuster: [employer] Lot #: [id number] Expiration Date: 03/18/2025 See MAR The date due for the next injection is N/A Provider Alison Grimm MD was present in the office at the time of injection. Patient tolerated well. Alison Yu RNUniversity Hospitals [facility]01-07-2025 History of Present illness Narrative* Alison Yu RN - 08/25/2024 4:33 PM EST The patient is here for 2nd injection of Betamethasone. Dose: 12mg/2ml Amount wasted: none. Route: Intramuscular Site: right upper quadrant gluteus Inspecting Machine Adjuster: [employer] Lot #: [id number] Expiration Date: 03/18/2025 See MAR The date due for the next injection is N/A Provider Alison Grimm MD was present in the office at the time of injection. Patient tolerated well. Alison Yu RN documented in this encounterWayne [facility]01-07-2025 NoteHNO ID: [id number] Author: BIENVENIDO PETERSON RN Service: Nursing Author Type: Registered Nurse Type: Nursing Progress Note Filed: 08/25/2024 13:45 Note Text: Pt resting in bed. States ride will be here in about an hour. Will continue to monitor[facility] NoteHNO ID: [id number] Author: BIENVENIDO PETERSON, RN Service: Nursing Author Type: Registered Nurse Type: Procedures Filed: 08/25/2024 09:37 Note Text: Attestation signed by Jakob Ceja MD at 08/25/2024 10:49 AM PROVIDER INTERPRETATION: Reactive SIGNATURE: Jakob Ceja MD DATE: August 25, 2024 TIME: 10:49 AM OBSTETRICS NST SUMMARY SERVICE DATE: August 25, 2024 The patient is a 19 year old female, , who is at 28w2d with an BOGDAN of 11/15/2024, by Last Menstrual Period dating method. NST OBJECTIVE FINDINGS PER NURSE: Start Time: 841 (08/25/24934 : Bienvenido Peterson, RN) Complete Time: 935 (08/25/24934 : Bienvenido Peterson, RN) Indications: Other: Comment ( contractions) (08/25/24934 : Bienvenido Peterson, RN) Patient Reason For: monitor baby (08/25/24934 : Bienvenido Peterson, RN) NST Explanation: Procedure Explained;Monitor Explained;Verbalizes Understanding (08/25/24934 : Bienvenido Peterson, RN) Acoustic Stimulator: Interventions: MONITORING/ASSESSMENT: Baseline: 130 bpm (08/25/24934 : Bienvenido Peterson, BOZENA) Variability: Moderate (6-25 bpm) (08/25/24934 : Bienvenido Peterson RN) Accelerations: Present (08/25/24934 : Bienvenido Peterson, BOZENA) Decelerations: Decelerations: None (08/25/24934 : Bienvenido Peterson RN) Contractions: Not present (08/25/24934 : Bienvenido Peterson, BOZENA) Frequency: Above information forwarded to Dr. Wing (08/25/24934 : Bienvenido Peterson, BOZENA) for final review and interpretation. SIGNATURE: Bienvenido Peterson RN PATIENT NAME: Zain Rose DATE: August 25, 2024 TIME: 9:37 [facility]01-07-2025 NoteHNO ID: [id number] Author: JAKOB CEJA MD Service: Obstetrics Author Type: Resident Type: Progress Notes Filed: 08/25/2024 10:47 Note Text: Attestation signed by Jakob Ceja MD at 08/25/2024 10:47 AM Attending Note I evaluated the patient and personally participated in the martinez components. I agree with the resident's findings and plan as documented and have discussed the case and management of the patient's care with the resident. Pt no longer having ctx. To continue Prometrium. D/C home . Follow up with OB for 2nd dose of BMZ today. PTL precautions given Signature: Jakob Ceja MD Date: 08/25/2024 Time: 10:46 AM OBSTETRICS ANTEPARTUM PROGRESS NOTE SERVICE DATE: 08/25/2024 SERVICE TIME: 6:20 AM 19 year old EGA:28w2d admitted for contractions . Plan of care discussed with: Provider, RN, Patient. Assessment AND Plan contractions - contractions with last contraction occurred in ambulance during transfer, rated an 8/10 - Patient reports 1 contraction this morning, no additional contractions since - Vital Signs Stable - No contractions on [place] - Repeat Cervical exam: fingertip - S/p Mag sulfate Plan: - Regular Diet - 2nd dose of BMZ on 08/25 - Pending NST this morning Prematurity of fetus - Transverse lie on US - US 20w2d 12oz 38%, AC 77% - First dose of BMZ given 08/24 at 1630, second dose on 08/25 at 1630. - NST daily - NICU to be consulted if concerned for labor Cervix, short (affecting ) - 23.8mm on 07/13 - Continue Prometrium 200mg vaginally Heartburn during in third trimester - daily Protonix ADHD (attention deficit hyperactivity disorder) - no medication Anxiety and depression - no medications - mood stable Family history of deafness - FOB - Unknown etiology Subjective : Patient reports one contraction this morning described as tightening and pressure in her lower abdomen, denies any additional contractions since. Patient denies any fever, chills, chest pain SOB, nausea, vomiting, dysuria, diarrhea, constipation.No current vaginal bleeding, No current leaking of fluid, Good movement, No shortness of breath or chest pain, and No calf tenderness Objective : LAST VITALS: Pulse BP Resp O2 Sat Temp Pain 92 121/73 16 99 % 36.6 ?C (97.9 ?F) 0 PHYSICAL EXAM: General: WD, WN Heart: RR Lungs: clear to auscultation Abdomen: soft, nontender, gravid uterus Uterus: NT, gravid Extremities: no edema MONITORING/ASSESSMENT: Pending NST today LABS Diagnostic tests reviewed for today's visit: Most recent labs and imaging results. SIGNATURE: Johnny Ulrich DO PATIENT NAME: Zain Rose DATE: August 25, 2024 TIME: 5:26 [facility]01-06-2025 Telephone encounter Note* Telephone Encounter - Heidi Vila RN - 08/24/2024 6:19 PM EST Reason: Patient in labor. Patient currently 28 weeks and experiencing contractions every 5 to 10 minutes. Patient rates contractions 6/10. Outcome: L & D recommendation. Patient states she will got o Yulia L &D for evaluation. Reason for Disposition MODERATE-SEVERE abdominal pain Protocols used: - Labor - [id number] [facility]01-06-2025 Miscellaneous Notes* Telephone Encounter - Heidi Vila RN - 08/24/2024 6:19 PM EST Reason: Patient in labor. Patient currently 28 weeks and experiencing contractions every 5 to 10 minutes. Patient rates contractions 6/10. Outcome: L & D recommendation. Patient states she will got o Yulia L &D for evaluation. Reason for Disposition MODERATE-SEVERE abdominal pain Protocols used: - Labor - [id number] documented in this encounterWayne Healthcare [facility]01-06-2025 NoteHNO ID: [id number] Author: EDILBERTO BAILEY RN Service: ? Author Type: Registered Nurse Type: Progress Notes Filed: 08/24/2024 16:30 Note Text: Zain Rose presents for injection of Betamethasone as ordered by Dr. Cortes. GA:28w1d Betamethasone (Celestone) 12mg first dose, given IM - see OCT. Patient tolerated well. Dr. Cortes in office at time of injection. Second dose due: Yes - scheduled nurse visit for tomorrow Edilberto Bailey RNUniversity Hospitals [facility]01-06-2025 History of Present illness Narrative* Edilberto Bailey RN - 08/24/2024 4:29 PM EST Zain Rose presents for injection of Betamethasone as ordered by Dr. Cortes. GA:28w1d Betamethasone (Celestone) 12mg first dose, given IM - see MAR. Patient tolerated well. Dr. Cortes in office at time of injection. Second dose due: Yes - scheduled nurse visit for tomorrow Edilberto Bailey RN documented in this encounterWayne [facility]01-06-2025 Progress note* Quick Notes - Suellen Cortes MD - 08/24/2024 3:39 PM EST SW- Pt doing well today. Was admitted over the weekend for contractions. Has started using the vaginal progesterone and last placed last night. Still having 2 ctx's an hour. Contractions haveincreased in intensity but not frequency. No vb, lof. Good FM. She overall feels better since the weekend and contractions have lessened some today, but were more painful yesterday PE: Gen- NAD, well appearing, comfortable Abd- Soft, gravid, NT Cvx fingertip/50/-2, medium consistency, midposition See flowsheet A/p 28 wk gestation - contractions: Overall improved from the weekend but still having 2 ctx's/hour. GBS collected today. Unable to collect FFN given placement of vaginal Prometrium last night. Discussed r/b/a BMZ with patient and her partner. Patient desires to proceed. BMZ given today and to return tomorrow for second injection. Discussed reasons to call and reasons to present to hospital for evaluation. Questions answered. Cervix unchanged today from weekend - LARC declined signed - Tdap declined - 28 wk labs today - RTO 2 wks Suellen Cortes DO [facility]01-06-2025 Miscellaneous Notes* Quick Notes - Suellen Cortes MD - 08/24/2024 3:39 PM EST SW- Pt doing well today. Was admitted over the weekend for contractions. Has started using the vaginal progesterone and last placed last night. Still having 2 ctx's an hour. Contractions haveincreased in intensity but not frequency. No vb, lof. Good FM. She overall feels better since the weekend and contractions have lessened some today, but were more painful yesterday PE: Gen- NAD, well appearing, comfortable Abd- Soft, gravid, NT Cvx fingertip/50/-2, medium consistency, midposition See flowsheet A/p 28 wk gestation - contractions: Overall improved from the weekend but still having 2 ctx's/hour. GBS collected today. Unable to collect FFN given placement of vaginal Prometrium last night. Discussed r/b/a BMZ with patient and her partner. Patient desires to proceed. BMZ given today and to return tomorrow for second injection. Discussed reasons to call and reasons to present to hospital for evaluation. Questions answered. Cervix unchanged today from weekend - LARC declined signed - Tdap declined - 28 wk labs today - RTO 2 wks Suellen Cortes DO documented in this encounterWayne [facility]01-06-2025 Instructions* Patient Instructions* Tania Fatima MA - 08/24/2024 3:23 PM EST SEQUENTIAL SCREENINGS [facility] offers sequential screenings for women who are interested in screenings for chromosomal abnormalities and certain defects during a . The sequential screen combinesultrasound and blood tests to determine the risk of chromosomal abnormalities, including Down's Syndrome (Trisomy 21) and Trisomy 18, as well as open neural tube defects including spina bifida. Ultrasound examination is performed between 11 weeks and 13 weeks gestational age. Blood tests are drawn after the ultrasound and again later in the between 15 and 21 weeks gestational age. Please let your physician know if you are interested in this testing. It will require an appointment withour medication reconciliation technician. This is not an ultrasound performed by a physician in our office during a routine visit. SIGNS AND SYMPTOMS OF LABOR 1. Contractions every 10 minutes or more often 2. Clear, pink, or brownish fluid (water) leaking from vagina 3. Feeling that baby is pushing down, pressure 4. Low, dull backache 5. Cramps that feel like a period 6. Cramps with or without diarrhea If you notice any of the above symptoms, contact our office at [phone] and ask to speak with anurse. After hours, you can call doctors registry at [phone] OR call [facility] at [phone] ask to have the doctor solution make up operator paged. If you consider this an emergency, dial 7-9 or go to your nearest emergency department. NEED HELP? Are you dealing with a violent or abusive relationship? Are you a victim of rape or sexual assult? Call [facility] ([place]) 24 hour Crisis Hotline: 632.684.2082 or 228-226-6242. MANUAL Your Guide to a Healthy manual is now on-line. Visit [email or web address] to download your free copy SEQUENTIAL SCREENINGS The [facility] offers sequential screenings for women who are interested in screenings for chromosomal abnormalities and certain defects during a . The sequential screen combinesultrasound and blood tests to determine the risk of chromosomal abnormalities, including Down's Syndrome (Trisomy 21) and Trisomy 18, as well as open neural tube defects including spina bifida. Ultrasound examination is performed between 11 weeks and 13 weeks gestational age. Blood tests are drawn after the ultrasound and again later in the between 15 and 21 weeks gestational age. Please let your physician know if you are interested in this testing. It will require an appointment withour medication reconciliation technician. This is not an ultrasound performed by a physician in our office during a routine visit. SIGNS AND SYMPTOMS OF LABOR 1. Contractions every 10 minutes or more often 2. Clear, pink, or brownish fluid (water) leaking from vagina 3. Feeling that baby is pushing down, pressure 4. Low, dull backache 5. Cramps that feel like a period 6. Cramps with or without diarrhea If you notice any of the above symptoms, contact our office at [phone] and ask to speak with anurse. After hours, you can call doctors registry at [phone] OR call [facility] at [phone] ask to have the doctor solution make up operator paged. If you consider this an emergency, dial 2-8-3 or go to your nearest emergency department. NEED HELP? Are you dealing with a violent or abusive relationship? Are you a victim of rape or sexual assult? Call [facility]) 24 hour Crisis Hotline: 662.100.6477 or 139-252-2402. MANUAL Your Guide to a Healthy manual is now on-line. Visit [email or web address] to download your free copy documented in this encounterWay[facility]12-[facility]-2024 Progress note* Quick Notes - Toby Rome APRN.CNP - 07/27/2024 3:54 PM EST EH - S: Zain is a 19 year old female who presents at 24w1d for a routine visit. Feeling movement. Denies headache, visual changes, chest pain, shortness of breath, vaginal bleeding, leakage of fluid, or dysuria. O: See flow sheet Gen: No apparent distress Abd: Gravid, nontender, S ASSESSMENT/PLAN: 1. Supervision of high risk in second trimester - ICD9: V23.9, ICD10: O09.92 (primary diagnosis) - Mood stable - Discussed birthing classes - Discussed pediatricians 2. 24 weeks gestation of - ICD9: V22.2, ICD10: Z3A.24 - GTT, CBC, RPR next visit 3. Heartburn during in second trimester - ICD9: 646.83, 787.1, ICD10: O26.892, R12 - Nausea controlled - Heartburn continues on 20 mg of Protonix, trial 40 mg 4. Cervix, short (affecting ) - ICD9: 649.70, ICD10: O26.879 - Continue pelvic rest - Has not started Prometrium 200 mg vaginally daily due to shortened cervix on US (23.8 mm on 07/13/24). Plans to pick up attendant Prometrium and start. PTL precautions reviewed. RTO in 4 weeks or sooner as needed. Toby Rome APRN.CNP [facility]12-09-2024 Miscellaneous Notes* Quick Notes - Toby Rome APRN.CNP - 07/27/2024 3:54 PM EST EH - S: Zain is a 19 year old female who presents at 24w1d for a routine visit. Feeling movement. Denies headache, visual changes, chest pain, shortness of breath, vaginal bleeding, leakage of fluid, or dysuria. O: See flow sheet Gen: No apparent distress Abd: Gravid, nontender, S<D, 10 lb weight loss ASSESSMENT/PLAN: 1. Supervision of high risk in second trimester - ICD9: V23.9, ICD10: O09.92 (primary diagnosis) - Mood stable - Discussed birthing classes - Discussed pediatricians 2. 24 weeks gestation of - ICD9: V22.2, ICD10: Z3A.24 - GTT, CBC, RPR next visit 3. Heartburn during in second trimester - ICD9: 646.83, 787.1, ICD10: O26.892, R12 - Nausea controlled - Heartburn continues on 20 mg of Protonix, trial 40 mg 4. Cervix, short (affecting ) - ICD9: 649.70, ICD10: O26.879 - Continue pelvic rest - Has not started Prometrium 200 mg vaginally daily due to shortened cervix on US (23.8 mm on 07/13/24). Plans to pick up attendant Prometrium and start. PTL precautions reviewed. RTO in 4 weeks or sooner as needed. Toby Rome APRN.HOG BUYER documented in this encounterWayne [facility]12-09-2024 Instructions* Patient Instructions* Mona Lewis MA - 07/27/2024 3:40 PM EST SEQUENTIAL SCREENINGS [facility] offers sequential screenings for women who are interested in screenings for chromosomal abnormalities and certain defects during a . The sequential screen combinesultrasound and blood tests to determine the risk of chromosomal abnormalities, including Down's Syndrome (Trisomy 21) and Trisomy 18, as well as open neural tube defects including spina bifida. Ultrasound examination is performed between 11 weeks and 13 weeks gestational age. Blood tests are drawn after the ultrasound and again later in the between 15 and 21 weeks gestational age. Please let your physician know if you are interested in this testing. It will require an appointment withour medication reconciliation technician. This is not an ultrasound performed by a physician in our office during a routine visit. SIGNS AND SYMPTOMS OF LABOR 1. Contractions every 10 minutes or more often 2. Clear, pink, or brownish fluid (water) leaking from vagina 3. Feeling that baby is pushing down, pressure 4. Low, dull backache 5. Cramps that feel like a period 6. Cramps with or without diarrhea If you notice any of the above symptoms, contact our office at [phone] and ask to speak with anurse. After hours, you can call doctors registry at [phone] OR call [facility] at [phone] ask to have the doctor solution make up operator paged. If you consider this an emergency, dial 0-8-3 or go to your nearest emergency department. NEED HELP? Are you dealing with a violent or abusive relationship? Are you a victim of rape or sexual assult? Call [facility] ([place]) 24 hour Crisis Hotline: 661.920.4572 or 806-630-2303. MANUAL Your Guide to a Healthy manual is now on-line. Visit [email or web address] to download your free copy documented in this encounterWayne Healthcare [facility] Campus11-25-2024 Progress note* Quick Notes - Peggy Cedillo APRN.CNM - 07/13/2024 3:37 PM EST SHANIQUE-Patient seen today for US. Cervical length decreased and requesting cervical exam. The sensitive examination was discussed with the Patient or Patient's Authorized Surface Plate Inspector. Asapplicable, any other physician, advance practice provider, medical student, or other health professional student that will be observing or involved in the sensitive examination for educational or training purposes was discussed with the Patient or Authorized Surface Plate Inspector. The Patient or Authorized Surface Plate Inspector has agreed to proceed with the sensitive examination. (Sensitive examination includes inspection and/or palpation of the breasts, pelvis, prostate and anorectal regions) Cervix examined with speculum, closed, no vaginal bleeding Cervical digital exam close, thick externally. Reviewed recommendation of pelvic rest and to start Prometrium 200 mg vaginally once daily due to shortened cervix on US today. Follow up as scheduled. Peggy Cedillo APRN.CNM [facility]11-25-2024 Miscellaneous Notes* Quick Notes - Peggy Cedillo APRN.CNM - 07/13/2024 3:37 PM EST SHANIQUE-Patient seen today for US. Cervical length decreased and requesting cervical exam. The sensitive examination was discussed with the Patient or Patient's Authorized Surface Plate Inspector. Asapplicable, any other physician, advance practice provider, medical student, or other health professional student that will be observing or involved in the sensitive examination for educational or training purposes was discussed with the Patient or Authorized Surface Plate Inspector. The Patient or Authorized Surface Plate Inspector has agreed to proceed with the sensitive examination. (Sensitive examination includes inspection and/or palpation of the breasts, pelvis, prostate and anorectal regions) Cervix examined with speculum, closed, no vaginal bleeding Cervical digital exam close, thick externally. Reviewed recommendation of pelvic rest and to start Prometrium 200 mg vaginally once daily due to shortened cervix on US today. Follow up as scheduled. Peggy Cedillo APRN.CNM documented in this encounterWayne Healthcare [facility] Campus11-25-2024 Instructions* Patient Instructions* Mario Alberto Jain MA - 07/13/2024 3:23 PM EST SEQUENTIAL SCREENINGS [facility] offers sequential screenings for women who are interested in screenings for chromosomal abnormalities and certain defects during a . The sequential screen combinesultrasound and blood tests to determine the risk of chromosomal abnormalities, including Down's Syndrome (Trisomy 21) and Trisomy 18, as well as open neural tube defects including spina bifida. Ultrasound examination is performed between 11 weeks and 13 weeks gestational age. Blood tests are drawn after the ultrasound and again later in the between 15 and 21 weeks gestational age. Please let your physician know if you are interested in this testing. It will require an appointment withour medication reconciliation technician. This is not an ultrasound performed by a physician in our office during a routine visit. SIGNS AND SYMPTOMS OF LABOR 1. Contractions every 10 minutes or more often 2. Clear, pink, or brownish fluid (water) leaking from vagina 3. Feeling that baby is pushing down, pressure 4. Low, dull backache 5. Cramps that feel like a period 6. Cramps with or without diarrhea If you notice any of the above symptoms, contact our office at [phone] and ask to speak with anurse. After hours, you can call doctors registry at [phone] OR call [facility] at [phone] ask to have the doctor solution make up operator paged. If you consider this an emergency, dial 7--6 or go to your nearest emergency department. NEED HELP? Are you dealing with a violent or abusive relationship? Are you a victim of rape or sexual assult? Call [facility] ([place]) 24 hour Crisis Hotline: 741.509.7642 or 755-196-1101. MANUAL Your Guide to a Healthy manual is now on-line. Visit [email or web address] to download your free copy documented in this encounterWayne Healthcare [facility] Campus11-12-2024 Note* Addendum Note - Belle Carrillo MD - 06/30/2024 4:42 PM ESTAddended by: BELLE CARRILLO on: 06/30/2024 04:42 PM Modules accepted: Orders [facility]11-12-2024 Miscellaneous Notes* Addendum Note - Belle Carrillo MD - 06/30/2024 4:42 PM ESTAddended by: BELLE CARRILLO on: 06/30/2024 04:42 PM Modules accepted: Orders * Quick Notes - Belle Carrillo MD - 06/30/2024 4:30 PM EST RR- VB No. LOF No. CTXS No. Movement: present. Other c/o: No. Medication list reviewed. Physical Exam See Flow Sheet Abd: soft, nontender, gravid A/P 20w2d Estimated Date of Delivery: 11/15/24 Labs: no labs today. Heartburn - protonix helping. N/v of - improved w/ protonix US today- XX- Short cervix, f/u in 1-2 weeks didn't start ASA Belle Carrillo M.D. documented in this encounterWayne Healthcare [facility]11-12-2024 Progress note* Quick Notes - Belle Carrillo MD - 06/30/2024 4:30 PM EST RR- VB No. LOF No. CTXS No. Movement: present. Other c/o: No. Medication list reviewed. Physical Exam See Flow Sheet Abd: soft, nontender, gravid A/P 20w2d Estimated Date of Delivery: 11/15/24 Labs: no labs today. Heartburn - protonix helping. N/v of - improved w/ protonix US today- XX- Short cervix, f/u in 1-2 weeks didn't start ASA Belle Carrillo M.D. [facility]11-12-2024 Instructions* Patient Instructions* Ivanna García MA - 06/30/2024 4:15 PM EST SEQUENTIAL SCREENINGS [facility] offers sequential screenings for women who are interested in screenings for chromosomal abnormalities and certain defects during a . The sequential screen combinesultrasound and blood tests to determine the risk of chromosomal abnormalities, including Down's Syndrome (Trisomy 21) and Trisomy 18, as well as open neural tube defects including spina bifida. Ultrasound examination is performed between 11 weeks and 13 weeks gestational age. Blood tests are drawn after the ultrasound and again later in the between 15 and 21 weeks gestational age. Please let your physician know if you are interested in this testing. It will require an appointment withour medication reconciliation technician. This is not an ultrasound performed by a physician in our office during a routine visit. SIGNS AND SYMPTOMS OF LABOR 1. Contractions every 10 minutes or more often 2. Clear, pink, or brownish fluid (water) leaking from vagina 3. Feeling that baby is pushing down, pressure 4. Low, dull backache 5. Cramps that feel like a period 6. Cramps with or without diarrhea If you notice any of the above symptoms, contact our office at [phone] and ask to speak with anurse. After hours, you can call doctors registry at [phone] OR call [facility] at [phone] ask to have the doctor solution make up operator paged. If you consider this an emergency, dial 3-8-5 or go to your nearest emergency department. NEED HELP? Are you dealing with a violent or abusive relationship? Are you a victim of rape or sexual assult? Call [facility] ([place]) 24 hour Crisis Hotline: 540.263.8154 or 526-976-4196. MANUAL Your Guide to a Healthy manual is now on-line. Visit [email or web address] to download your free copy documented in this encounterWayne Healthcare [facility] Campus10-18-2024 Progress note* Quick Notes - Peggy Cedillo APRN.CNM - 06/05/2024 3:44 PM EDT SHANIQUE-S: Zain Rose is a 19 year old female who presents at 16w5d with BOGDAN:11/15/2024, by Last Menstrual Period for a routine visit. Denies headache, visual changes, chest pain, shortness of breath, vaginal bleeding, leakage of fluid, or dysuria. Feeling much better with zofran pump O: See flow sheet Gen: No apparent distress Abd: Gravid, nontender ASSESSMENT/PLAN: 1. Supervision of high risk in second trimester -Recommend ASA 81mg PO once daily -Anatomy US at 20 wk -Second part of sequential screen today 2. 16 weeks gestation of 3. Hyperemesis gravidarum -Continue Zofran pump at this time 4. Heartburn during in second trimester -Continue Pepcid 5. Depression affecting in second trimester, antepartum -coping well at this time 6. Anxiety during -Coping well at this time. -PTL precautions reviewed and when to call -RTO in 4 wk Peggy Cedillo APRN.CNM [facility]10-18-2024 Miscellaneous Notes* Quick Notes - Peggy Cedillo APRN.CNM - 06/05/2024 3:44 PM EDT SHANIQUE-S: Zain Rose is a 19 year old female who presents at 16w5d with BOGDAN:11/15/2024, by Last Menstrual Period for a routine visit. Denies headache, visual changes, chest pain, shortness of breath, vaginal bleeding, leakage of fluid, or dysuria. Feeling much better with zofran pump O: See flow sheet Gen: No apparent distress Abd: Gravid, nontender ASSESSMENT/PLAN: 1. Supervision of high risk in second trimester -Recommend ASA 81mg PO once daily -Anatomy US at 20 wk -Second part of sequential screen today 2. 16 weeks gestation of 3. Hyperemesis gravidarum -Continue Zofran pump at this time 4. Heartburn during in second trimester -Continue Pepcid 5. Depression affecting in second trimester, antepartum -coping well at this time 6. Anxiety during -Coping well at this time. -PTL precautions reviewed and when to call -RTO in 4 wk Peggy Cedillo APRN.CNM documented in this encounterWayne Healthcare [facility] Campus10-18-2024 Instructions* Patient Instructions* Mona Lewis MA - 06/05/2024 3:36 PM EDT SEQUENTIAL SCREENINGS [facility] offers sequential screenings for women who are interested in screenings for chromosomal abnormalities and certain defects during a . The sequential screen combinesultrasound and blood tests to determine the risk of chromosomal abnormalities, including Down's Syndrome (Trisomy 21) and Trisomy 18, as well as open neural tube defects including spina bifida. Ultrasound examination is performed between 11 weeks and 13 weeks gestational age. Blood tests are drawn after the ultrasound and again later in the between 15 and 21 weeks gestational age. Please let your physician know if you are interested in this testing. It will require an appointment withour medication reconciliation technician. This is not an ultrasound performed by a physician in our office during a routine visit. SIGNS AND SYMPTOMS OF LABOR 1. Contractions every 10 minutes or more often 2. Clear, pink, or brownish fluid (water) leaking from vagina 3. Feeling that baby is pushing down, pressure 4. Low, dull backache 5. Cramps that feel like a period 6. Cramps with or without diarrhea If you notice any of the above symptoms, contact our office at [phone] and ask to speak with anurse. After hours, you can call doctors registry at [phone] OR call [facility] at [phone] ask to have the doctor solution make up operator paged. If you consider this an emergency, dial 6-1-6 or go to your nearest emergency department. NEED HELP? Are you dealing with a violent or abusive relationship? Are you a victim of rape or sexual assult? Call [facility] ([place]) 24 hour Crisis Hotline: 969.663.2038 or 673-747-3183. MANUAL Your Guide to a Healthy manual is now on-line. Visit [email or web address] to download your free copy documented in this encounterWayne Healthcare [facility] Campus10-10-2024 Telephone encounter Note * Telephone Encounter - Edilberto Bailey RN - 05/28/2024 4:52 PM EDT [facility] nurse called back and got approval for IV fluids to be started tomorrow. She will type up order and fax to office to be signed and faxed back. Spoke to patient and she is aware too. Stated she already spoke to her nurse and it is scheduled for tomorrow. Edilberto Bailey RN [facility]10-10-2024 Miscellaneous Notes* Telephone Encounter - Edilberto Bailey RN - 05/28/2024 4:52 PM EDT [facility] nurse called back and got approval for IV fluids to be started tomorrow. She will type up order and fax to office to be signed and faxed back. Spoke to patient and she is aware too. Stated she already spoke to her nurse and it is scheduled for tomorrow. Edilberto Bailey RN * Telephone Encounter - Edilberto Bailey RN - 05/28/2024 4:01 PM EDT Spoke to [facility] nurse. Typically they only do the initial IV therapy when started on the Zofran pumpas ordered. She is going to check with her administration to see if they will approve a second round of IV fluids for patient. She is going to call the back line back once she gets their response. Edilberto Bailey RN * Telephone Encounter - Seth Castro APRN.CNM - 05/28/2024 3:30 PM EDT I will fill out order sheet to fax to them. Seth Castro APRN.CNM * Telephone Encounter - Edilberto Bailey RN - 05/28/2024 3:21 PM EDT The signed [facility] order only states to add hydration with D5LR at start of care for 500mL bolus [id number] up to 4 days. No further fluid order included for the rest of duration she is under their care. Edilberto Bailey RN * Telephone Encounter - Seth Castro APRN.CNM - 05/28/2024 3:10 PM EDT There should be orders for IV fluids on the [facility] order set? They can give her IV fluids if they feel necessary. She currently is being treated for UTI as well. Is she unable to keep fluids down orally? Seth Castro APRN.CNM * Telephone Encounter - Alison Yu RN - 05/28/2024 3:04 PM EDT 15w4d [facility] nurse called to give the office an update. See 05/26/24 phone note. Patient still scores high on the depression screen, but has no plan. No changes since Saturday. However, her urine ketones are 2+. [facility] nurse asking if our office has a plan in place for her to receive IV fluids. Patient last seen 05/22 for a NOB visit. Alison Yu RN documented in this encounterWayne Healthcare [facility] Campus10-10-2024 Telephone encounter Note * Telephone Encounter - Edilberto Bailey RN - 05/28/2024 4:01 PM EDT Spoke to [facility] nurse. Typically they only do the initial IV therapy when started on the Zofran pumpas ordered. She is going to check with her administration to see if they will approve a second round of IV fluids for patient. She is going to call the back line back once she gets their response. Edilberto Bailey RN [facility]10-10-2024 Telephone encounter Note* Telephone Encounter - Seth Castro APRN.CNM - 05/28/2024 3:30 PM EDT I will fill out order sheet to fax to them. Seth Castro APRN.CNM [facility]10-10-2024 Telephone encounter Note* Telephone Encounter - Edilberto Bailey RN - 05/28/2024 3:21 PM EDT The signed [facility] order only states to add hydration with D5LR at start of care for 500mL bolus [id number] up to 4 days. No further fluid order included for the rest of duration she is under their care. Edilberto Bailey RN [facility]10-10-2024 Telephone encounter Note* Telephone Encounter - Seth Castro APRN.CNM - 05/28/2024 3:10 PM EDT There should be orders for IV fluids on the [facility] order set? They can give her IV fluids if they feel necessary. She currently is being treated for UTI as well. Is she unable to keep fluids down orally? Seth Castro APRN.CNM [facility]10-10-2024 Telephone encounter Note* Telephone Encounter - Alison Yu RN - 05/28/2024 3:04 PM EDT 15w4d [facility] nurse called to give the office an update. See 05/26/24 phone note. Patient still scores high on the depression screen, but has no plan. No changes since Saturday. However, her urine ketones are 2+. [facility] nurse asking if our office has a plan in place for her to receive IV fluids. Patient last seen 05/22 for a NOB visit. Alison Yu RN [facility]10-09-2024 Telephone encounter Note* Telephone Encounter - Berenice Hoover MA - 05/27/2024 8:02 AM EDT Patient notified of results, verbalized understanding and mentioned she went to ER for other causeslast night and they did run another urinalysis to which they diagnosed her with a UTI, so she is being treated with atb that was prescribed by [facility]. Instructed to follow up with DISPOSAL PLANT OPERATOR upon completionof medication to ensure symptoms have resolved. Berenice Hoover MA [facility]10-09-2024 Miscellaneous Notes* Telephone Encounter - Berenice Hoover MA - 05/27/2024 8:02 AM EDT Patient notified of results, verbalized understanding and mentioned she went to ER for other causeslast night and they did run another urinalysis to which they diagnosed her with a UTI, so she is being treated with atb that was prescribed by [facility]. Instructed to follow up with DISPOSAL PLANT OPERATOR upon completionof medication to ensure symptoms have resolved. Berenice Hoover MA * Telephone Encounter - Berenice Hoover MA - 05/27/2024 8:00 AM EDT ----- Message from Miguel Dyer APRN.HOG BUYER sent at 05/27/2024 7:54 AM EDT ----- Please advise patient the urine culture was negative. Follow instructions given by provider at visit, f/u with DISPOSAL PLANT OPERATOR if symptoms persist or worsen. [facility] Telephone encounter Note * Telephone Encounter - Berenice Hoover MA - 05/27/2024 8:00 AM EDT ----- Message from Miguel Dyer APRN.CNP sent at 05/27/2024 7:54 AM EDT ----- Please advise patient the urine culture was negative. Follow instructions given by provider at visit, f/u with DISPOSAL PLANT OPERATOR if symptoms persist or worsen. [facility]10-08-2024 Telephone encounter Note* Telephone Encounter - Belle Carrillo MD - 05/26/2024 5:54 PM EDT Thank you for reaching out to her and agree w/ this plan. Belle Carrillo MD [facility] Work Phone: [phone] 177-920910-08-2024 Miscellaneous Notes* Telephone Encounter - Belle Carrillo MD - 05/26/2024 5:54 PM EDT Thank you for reaching out to her and agree w/ this plan. Belle Carrillo MD * Telephone Encounter - Edilberto Bailey RN - 05/26/2024 12:06 PM EDT 15w2d [employer] nurse calling with update. Stated depression screening was high again and she had to report it. Stated patient is still having thoughts of harming self, but no plan in place. She saw on or depression and refused medication then. She has not called the counseling center to schedule with a counselor yet either. I called the patient then and she stated all the above. She plans to callthe counselor today to establish care with them. She still has crisis hotline if needed. Feels she has good support and her symptoms have not worsened since she saw last week. Offered sooner appointment if needed here and patient declined. Advised if she changes her mind regarding medication to call office back and encouraged her to call counselor today to schedule an appointment. Patient agreed. Edilberto Bailey RN documented in this encounterWay[facility]10-08-2024 Telephone encounter Note * Telephone Encounter - Edilberto Bailey RN - 05/26/2024 12:06 PM EDT 15w2d [employer] nurse calling with update. Stated depression screening was high again and she had to report it. Stated patient is still having thoughts of harming self, but no plan in place. She saw on or depression and refused medication then. She has not called the counseling center to schedule with a counselor yet either. I called the patient then and she stated all the above. She plans to callthe counselor today to establish care with them. She still has crisis hotline if needed. Feels she has good support and her symptoms have not worsened since she saw last week. Offered sooner appointment if needed here and patient declined. Advised if she changes her mind regarding medication to call office back and encouraged her to call counselor today to schedule an appointment. Patient agreed. Edilberto Bailey RN [facility]10-07-2024 NoteHNO ID: [id number] Author: FRANCO CAAL APRN.HOG BUYER Service: ? Author Type: Nurse Practitioner Type: Progress Notes Filed: 05/25/2024 18:49 Note Text: Subjective HPI Nontoxic-appearing 15-week female presents urgent care chief complaint possible UTI. Duration of symptoms 1 week. Associated symptoms dysuria frequency. Presents today for evaluation. No OTC medication use. Denies any fevers vomiting abdominal pain new nausea flank pain urological abnormalities vaginal discharge leaking of fluid or rashes. Past medical history prescription medications allergies reviewed. .Patient presents with: Urinary Frequency: burning with urination x 1 week, 15 weeks PAST MEDICAL HISTORY Diagnosis Date ADHD (attention deficit hyperactivity disorder) Generalized anxiety disorder NEGATIVE MEDICAL HISTORY normal color vision past medical history of age 2 years dermatoid - by her right eye PAST SURGICAL HISTORY Procedure Laterality Date NEXPLANON REMOVAL Left 10/07/2023 PAST SURGICAL HISTORY OF surgery on eye ALLERGIES Patient has no known allergies. MEDICATIONS promethazine (PHENERGAN) 25 mg tablet Take 1 tablet by mouth every 6 hours as needed. pantoprazole DR (PROTONIX) 20 mg tablet Take 1 tablet by mouth once daily. PNV/iron,carb/docusat/folic ac (PRENA-CAP ORAL) Take 1 tablet by mouth once daily. ondansetron (ZOFRAN) 4 mg tablet Take 4 mg by mouth every 8 hours as needed for nausea/vomiting. FAMILY HISTORY Problem Relation Age of Onset Allergies Father Breast Cancer Maternal Grandmother Social History Tobacco Use Smoking status: Never Smokeless tobacco: Never Tobacco comments: no smoking in home Vaping Use Vaping status: Former Quit date: 03/08/2024 Substance Use Topics Alcohol use: Not Currently Comment: no alcohol use in home Drug use: Never BP 110/68 Pulse 88 Temp 36.9 ?C (98.5 ?F) Resp 16 Wt 66.4 kg (146 lb 6.2 oz) LMP 2024 (Approximate) SpO2 98% BMI 23.63 kg/m? Review of Systems Constitutional: Negative for chills, fever and malaise/fatigue. Cardiovascular: Negative for chest pain. Gastrointestinal: Negative for abdominal pain, constipation, diarrhea, nausea and vomiting. Genitourinary: Positive for dysuria and frequency. Negative for flank pain, hematuria and urgency. Musculoskeletal: Negative for myalgias. Objective Physical Exam Vitals and nursing note reviewed. Constitutional: General: She is not in acute distress. Appearance: She is not diaphoretic. HENT: Head: Jaw: No trismus. Right Ear: Hearing normal. No decreased hearing noted. No drainage, swelling or tenderness. Tympanic membrane is not perforated, erythematous or bulging. Left Ear: Hearing normal. No decreased hearing noted. No drainage, swelling or tenderness. Tympanic membrane is not perforated, erythematous or bulging. Mouth/Throat: Pharynx: Uvula midline. No uvula swelling. Tonsils: No tonsillar abscesses. Cardiovascular: Rate and Rhythm: Normal rate and regular rhythm. Pulses: Normal pulses. Pulmonary: Effort: Pulmonary effort is normal. No respiratory distress. Breath sounds: Normal breath sounds. Chest: Chest wall: No tenderness. Abdominal: General: Bowel sounds are normal. There is no distension. Palpations: Abdomen is soft. Abdomen is not rigid. Tenderness: There is no abdominal tenderness. There is no right CVA tenderness, left CVA tenderness, guarding or rebound. Negative signs include Johnson's sign and McBurney's sign. Musculoskeletal: General: No tenderness. Lymphadenopathy: Head: Right side of head: No submental, submandibular, tonsillar, preauricular, posterior auricular or occipital adenopathy. Left side of head: No submental, submandibular, tonsillar, preauricular, posterior auricular or occipital adenopathy. Cervical: Right cervical: No superficial or posterior cervical adenopathy. Left cervical: No superficial or posterior cervical adenopathy. Skin: General: Skin is warm and dry. Findings: No rash. Neurological: Mental Status: She is alert and oriented to person, place, and time. ASSESSMENT/PLAN: 1. Urinary frequency - ICD9: 788.41, ICD10: R35.0 (primary diagnosis) - UA DIP, URINE (POC) - URINE CULTURE 2. Burning with urination - ICD9: 788.1, ICD10: R30.0 - UA DIP, URINE (POC) - URINE CULTURE Urine dip negative. Will not treat at this point. Follow-up with DISPOSAL PLANT OPERATOR if symptoms persist. Treat accordingly urine culture results. Patient was educated on supportive therapies. Patient will follow up with primary care provider as needed. Patient was instructed to immediately proceed to emergency room for any new, worsening, or symptoms lasting longer than anticipated. The patient's clinical presentation is otherwise unremarkable at this time. Based on exam and clinical finding, the patient is stable for discharge. Plan of care was discussed with patient. Valeria (more content not included)...[facility]10-07-[facility]24 History of Present illness Narrative* Franco Caal APRN.HOG BUYER - 05/25/2024 6:47 PM EDT Subjective HPI Nontoxic-appearing 15-week female presents urgent care chief complaint possible UTI. Duration of symptoms 1 week. Associated symptoms dysuria frequency. Presents today for evaluation. No OTCmedication use. Denies any fevers vomiting abdominal pain new nausea flank pain urological abnormalities vaginal discharge leaking of fluid or rashes. Past medical history prescription medications allergies reviewed. .Patient presents with: Urinary Frequency: burning with urination x 1 week, 15 weeks PAST MEDICAL HISTORY Diagnosis Date ADHD (attention deficit hyperactivity disorder) Generalized anxiety disorder NEGATIVE MEDICAL HISTORY normal color vision past medical history of age 2 years dermatoid - by her right eye PAST SURGICAL HISTORY Procedure Laterality Date NEXPLANON REMOVAL Left 10/07/2023 PAST SURGICAL HISTORY OF surgery on eye ALLERGIES Patient has no known allergies. MEDICATIONS promethazine (PHENERGAN) 25 mg tablet Take 1 tablet by mouth every 6 hours as needed. pantoprazole DR (PROTONIX) 20 mg tablet Take 1 tablet by mouth once daily. PNV/iron,carb/docusat/folic ac (PRENA-CAP ORAL) Take 1 tablet by mouth once daily. ondansetron (ZOFRAN) 4 mg tablet Take 4 mg by mouth every 8 hours as needed for nausea/vomiting. FAMILY HISTORY Problem Relation Age of Onset Allergies Father Breast Cancer Maternal Grandmother Social History Tobacco Use Smoking status: Never Smokeless tobacco: Never Tobacco comments: no smoking in home Vaping Use Vaping status: Former Quit date: 03/08/2024 Substance Use Topics Alcohol use: Not Currently Comment: no alcohol use in home Drug use: Never BP 110/68 Pulse 88 Temp 36.9 C (98.5 F) Resp 16 Wt 66.4 kg (146 lb 6.2 oz) LMP 2024(Approximate) SpO2 98% BMI 23.63 kg/m Review of Systems Constitutional: Negative for chills, fever and malaise/fatigue. Cardiovascular: Negative for chest pain. Gastrointestinal: Negative for abdominal pain, constipation, diarrhea, nausea and vomiting. Genitourinary: Positive for dysuria and frequency. Negative for flank pain, hematuria and urgency. Musculoskeletal: Negative for myalgias. Objective Physical Exam Vitals and nursing note reviewed. Constitutional: General: She is not in acute distress. Appearance: She is not diaphoretic. HENT: Head: Jaw: No trismus. Right Ear: Hearing normal. No decreased hearing noted. No drainage, swelling or tenderness. Tympanic membrane is not perforated, erythematous or bulging. Left Ear: Hearing normal. No decreased hearing noted. No drainage, swelling or tenderness. Tympanicmembrane is not perforated, erythematous or bulging. Mouth/Throat: Pharynx: Uvula midline. No uvula swelling. Tonsils: No tonsillar abscesses. Cardiovascular: Rate and Rhythm: Normal rate and regular rhythm. Pulses: Normal pulses. Pulmonary: Effort: Pulmonary effort is normal. No respiratory distress. Breath sounds: Normal breath sounds. Chest: Chest wall: No tenderness. Abdominal: General: Bowel sounds are normal. There is no distension. Palpations: Abdomen is soft. Abdomen is not rigid. Tenderness: There is no abdominal tenderness. There is no right CVA tenderness, left CVA tenderness, guarding or rebound. Negative signs include Johnson's sign and McBurney's sign. Musculoskeletal: General: No tenderness. Lymphadenopathy: Head: Right side of head: No submental, submandibular, tonsillar, preauricular, posterior auricular or occipital adenopathy. Left side of head: No submental, submandibular, tonsillar, preauricular, posterior auricular or occipital adenopathy. Cervical: Right cervical: No superficial or posterior cervical adenopathy. Left cervical: No superficial or posterior cervical adenopathy. Skin: General: Skin is warm and dry. Findings: No rash. Neurological: Mental Status: She is alert and oriented to person, place, and time. ASSESSMENT/PLAN: 1. Urinary frequency - ICD9: 788.41, ICD10: R35.0 (primary diagnosis) - UA DIP, URINE (POC) - URINE CULTURE 2. Burning with urination - ICD9: 788.1, ICD10: R30.0 - UA DIP, URINE (POC) - URINE CULTURE Urine dip negative. Will not treat at this point. Follow-up with DISPOSAL PLANT OPERATOR if symptoms persist. Treat accordingly urine culture results. Patient was educated on supportive therapies. Patient will followup with primary care provider as needed. Patient was instructed to immediately proceed to emergencyroom for any new, worsening, or symptoms lasting longer than anticipated. The patient's clinical presentation is otherwise unremarkable at this time. Based on exam and clinical finding, the patient is stable for discharge. Plan of care was discussed with patient. Patient verbalizes understanding and agrees to plan of care. This note was generated using Soapbox software. It may contain errors in wording, punctuation, or spelling. Franco Caal APRN.LUIS documented in this encounterWay[facility]10-[facility]-2024 Progress note* Quick Notes - Toby Rome APRN.CNP - 05/22/2024 3:19 PM EDT EH - S: Zain is a 19 year old female who presents at 14w5d for a visit to discuss anxiety and depression affecting . O: See flow sheet Gen: No apparent distress Abd: Gravid, nontender ACTIVE PROBLEM LIST Supervision of High Risk in Second Trimester - 03/27/2024 Depression Affecting in Second Trimester, Antepartum Anxiety During - 03/27/2024 Discussed depression and anxiety impact on and baby's health, as well as maternal health.Strongly recommend counseling or medication as very high risk for depression, anxiety, mood disorders. Zain declines medication at this time but willing to trial counseling. + for thoughts of self harm (reported hardly ever). No active plan. Partner emotionally supportive. Women's Behavioral Health consult placed. Discussed alternative options such as counseling center. Crisis line and mental health resources provided. Reports mental health is improving with Zofran pump and feelingphysically better. Toby Rome APRN.CNP Hyperemesis Gravidarum - 03/27/2024 Significantly improving with Zofran pump and IV fluids. PTL precautions reviewed. RTO for next OB visit as scheduled. Plan to schedule with Women's Behavioral Health. Toby Rome APRN.LUIS [facility]10-04-2024 Miscellaneous Notes* Quick Notes - Toby Rome APRN.CNP - 05/22/2024 3:19 PM EDT EH - S: Zain is a 19 year old female who presents at 14w5d for a visit to discuss anxiety and depression affecting . O: See flow sheet Gen: No apparent distress Abd: Gravid, nontender ACTIVE PROBLEM LIST Supervision of High Risk in Second Trimester - 03/27/2024 Depression Affecting in Second Trimester, Antepartum Anxiety During - 03/27/2024 Discussed depression and anxiety impact on and baby's health, as well as maternal health.Strongly recommend counseling or medication as very high risk for depression, anxiety, mood disorders. Zain declines medication at this time but willing to trial counseling. + for thoughts of self harm (reported hardly ever). No active plan. Partner emotionally supportive. Women's Behavioral Health consult placed. Discussed alternative options such as counseling center. Crisis line and mental health resources provided. Reports mental health is improving with Zofran pump and feelingphysically better. Toby Rome APRN.CNP Hyperemesis Gravidarum - 03/27/2024 Significantly improving with Zofran pump and IV fluids. PTL precautions reviewed. RTO for next OB visit as scheduled. Plan to schedule with Women's Behavioral Health. Toby Rome APRN.CNP documented in this encounterWay[facility]10-04-2024 Instructions* Patient Instructions* Toby Rome APRN.CNP - 05/22/2024 3:03 PM EDT Images from the original note were not included. [facility] at [facility] Call Behavioral Health Access Line at [phone] to schedule Individual psychotherapy In-person or virtual Wait time for first evaluation may be 12 or more weeks. Wait list spots may be available. Due to the high volume of patients this option is recommended if you are looking for short term acute symptomcoping strategies. 5-644-9-SUIQ8ZKLD - [place] Maternal Mental Health Hotline If you are in suicidal crisis, please call or text 9-535-151-ZALY ( ) or visit the National Suicide Prevention Lifeline website. [facility].gov If you are in crisis, call 911 or go to your nearest Emergency Department Here are some links for wonderful Providers here in the community and surrounding areas. Do not hesitate to contact their offices, many are offering virtual visits during this time. Psychotherapy Services outside of [facility] Support International Online Provider Directory https://psiBand Metrics.com/ - can assist in finding providers in your area that might be more extensive then the list below. [facility] [place] [address] [place] [address] Marcella [address] [place], [place] [address] [facility] [address] [place], [place] [address] [facility] [address] [place] [address] Lien Mir MD [address] [place] [address] [facility] [address] [facility], [address] [place] [address] [facility] [address] [place] [address] [facility] [place] / [place] [phone]/ [phone] Miryam Cerratolcshana [address] [facility] [phone] [facility] Counseling and Mediation [place] / Bev [phone] Behavioral health services of [facility] [address] [place] [address]/ [place] and [place] [phone] Mario Billingsley, MICHAEL, CLC [facility] Workshops, telehealth and at home visits. [phone] Humanistic counseling alder 20 locations [facility], [place], [place], [place], [place], [place], [facility], [place], [place], [place], [place], [place], [place], [facility], [place], [place] ,[facility], [place], [place],[facility], [facility], [place], [facility], [facility], [place] www.[facility] medical center vinelandExtend Mediasummersville memorial hospitalBin1 ATE [phone] Psychotherapy resources outside of [facility] are listed below [facility] [employer] [facility] Psychotherapy Web: https://www.Raw Science Inc./ Support International Online Provider Directory https://Fracture/ [facility] https://insightcoReflectance Medical.Hyperfair/ Partners for Behavioral Health and Wellness Web: https://ProBueno/ Center for Effective Living Web: https://www.effectiveBureau Of Tradeliving.Hyperfair/ LifeStance Web: https://Feathr.com/location/critical access hospital/[place]/ [facility] Health Web: https://www.Fox Technologiespl[facility].org/ [facility] Web: https://TelemetryWebakOndeego.org/ Recovery Resources Mental health and substance abuse help Web: https://www.OnQueue Technologiess.org & RESOURCES Support International Direct peer support and connection to professional resources Non-Emergency Helpline Phone: / Text: [phone] Web: https://www..net/ Online Provider Directory: https://Fracture/ Online Support Meetings: https://www..net/get-help/kgu-gnmybz-moeulfp-meetings/ MISHA Baby and Line Cook Services Web: https://TotalHousehold/ MotherToBaby Expert information on medication use during and Text: [phone] Web: https://Essess, Inc/ NATIONAL REGISTRY FOR PSYCHIATRIC MEDICATIONS Currently studying the safety of antidepressants, ADHD medications and atypical antipsychotics taken during TO PARTICIPATE CALL TOLL-FREE: Web: https://womensmentalhealth.org/research/pregnancyregistry/ Support Groups: [facility]- Follow on facebook Baby Bistro support group led by [facility] department [facility] - Support Group [facility].org The POEM support group [phone] Www.poemonline.org Follow on facebook - LUAN noriega chapter Online support meetings PSI https://www..net/get-help/ouq-dagfbh-nomuoos-meetings/ [facility] mommy and me virtual support group 11:30-1pm Support for mothers and new babies and toddlers [place] childbirth education: Childbirth @cc.org or call [phone] CRISIS: CRISIS HOTLINE [phone], 911 or go to the nearest . [facility] [phone] / [facility] [phone] https://www.[facility].org Crisis text line text the word HOME to [phone] [facility] [address] [facility] [address] www.Meta Data Analytics 360 Yasmin Mane clinical counseling [address] [facility] [address] [place] [address] www.Exalt Communications [phone] Holding space psychotherapy Ketty Reyez HOME ATTENDANT SHIPPING SUPPORT CLERK-S [address] [facility] www.Eat In Chef [phone]/ [place] [phone] They all offer virtual. All work with trauma Support groups Online support meetings PSI https://www..net/get-help/jcv-wkwbec-cafwgfb-meetings/ Here are the support groups they offer: Support of parents of 1 to 4 years old children POEM ( Outreach and Encouragement for Moms) offers free support for mothers experiencing depression, anxiety, and other mood and anxiety disorders. Masks are recommended but not required. No pre-registration required. Babies in arms welcome. meetings now take place on the and Saturday of each month Location: [facility] [address] [place] [address] Room 122 (library room) 7-8:00 p.m. When you enter the caodaism parking lot off of [address] the entrance door closest to our meeting room is on the front of the building toward the right. For those who are more comfortable with a virtual platform, POEM offers online support group options several days of the week. To register for an online group or to find out more about POEM, website at: https://mhaohio.org/get-help/ludqsdki-tcyczx-pxrxci/poem-services/ offer a confidential helpline: private Facebook group is called LUAN Hooper Here are the groups they offer: Traumatic childbirth resources: Http://pattch.org/ https://www.RedkneelorenacacaoTVnereyda.Hyperfair/ Name Location (s) Phone # (s) Services Website Red-M [facility] [address] [place] [address], [place], [place] - [phone]; [address] [facility] [address] [place], [place]- [phone] In-Person GROUPS INDIVIDUAL THERAPY MATERNAL- MENTAL HEALTH MEDICATION MANAGEMENT PLAY AND ART THERAPY TELETHERAPY https://www.Raw Science Inc./services/ Malgorzata samson [facility]? [address] [place], [place] [address] ? GILBERT [address] [facility], [address] [place], [place] [address] ? ALEXANDRA [address] [place] [phone]? Grief Support Groups Individual Grief Counseling Spiritual Care Memorial Events https://pemberton.[facility].org/grief-services [facility] [address] [place], [place] [address]; ; Email: vicki@[employer] Women's Mental Health; Couples Counseling; Trauma (EMDR); Stress Management; Mood and Anxiety Related Disorders- and much more https://www.Genetic Technologies/ LifeStance Numerous as they have contract providers: access website to find specific providers nearyou Counseling including CBT and EMDR as well as many more modalities; Medication Management; Telehealth and In-Person https://Healthways/ [employer] for Behavioral Health and Wellness [address] [place] [address]; [phone] Personal, Family and Group Therapy; Psychological Testing and Diagnosis; Medication Management; Life and Career Coaching; Psychoanalysis; Literacy Testing; Yoga and Meditation [email or web address]/ Fit [facility] [address], [place] [address] [address] ; [address] [facility], [address] [place] [address]; Office # for both sites: Individual and Couples Counseling [email or web address] OCD & Anxiety [facility] [address] [facility], [address], [place] [address]; Specialize in Cognitive-Behavioral Therapy (CBT) for the treatment of anxiety disorders across the lifespan. TELEHEALTH ONLY. [email or web address] [facility] [address] [place], [address] [place] [address] [place], [address] [place] [address] [place], [address] [place] [address] [place], [address], [address] [place] [address] [facility] [place], [address] [place] [address] [place], [place], [id number] Transportation Services To minimize patient barriers, [facility] provides transportation services to patients who qualify. If you are unable to get to your appointment at any of our facilities, please let us know. Need help now? Stop by one of our walk-in clinics to establish behavioral health care. Counseling Indvidual, Group, Couples and Family Counseling and EMDR. Medication Management Case Management benefits applications housing assistance Substance abuse treatment Medication assisted treatment [email or web address]/ [facility] OFFICE AT [facility] [address] [place] [address] [facility] OFFICE [address] [place] [address] [facility] OFFICE [address] [place] [address] TO OFFICE (at [facility]) [address] [place] [address] [facility] SYRINGE EXCHANGE PROGRAM & HIV SCREENING [address] [place] [address] [facility] EXCHANGE PROGRAM [address] [place] [address] Behavioral Health Urgent Care: [facility] Counseling Indvidual and Group Medication Management Case Management benefits applications housing assistance Substance abuse treatment Medication assisted treatment Employment Services/ Job Training https://theQingdao Land of State Power Environment EngineeringakOndeego.org/ [facility] [address] [place], [place] [address]: P: [phone] [address] [facility], [address], [place], [place] [address] P: [phone] Our services include: Addiction Mental Health Treatment Assessment Psychiatry Medical Care Employment Housing Drug and Alcohol Prevention HIV/AIDS Prevention [email or web address]://[email or web address]/ [facility] [place] [address] [place] [address] [place] [address] [place], [place] [address] [place] [address] [place] [address] [place] [address] [facility] [address] [place] [address] [place] [address] [place] [address] TMS Therapy/ Counseling Psychocological Testing for ADHD Medication Management In-Person/ Telemedicine [email or web address] Memory & Psychological services [address], [place] [address] Neuropsychological Testing For ADHD [email or web address] [facility] Office [address] [place] [id number] [address] Providing jyci-sf-oijm and telehealth services. Adult Case Management Community Education and Prevention Employment Outpatient Treatment - Counseling & Psychotherapy Psychiatric Services [email or web address] [facility] [place] [address] [place] [address] [place] [facility] [address] [place] [address] Virtual Appointments! Now offering safe and convenient virtual client appointments to anyone in [place]! Individual Therapy Couples/Relationship Therapy Trauma/EMDR Therapy Art Therapy Play Therapy Regional [employer] Truck Driver Support: Parenting Skills, Parent Child Interaction Therapy, Parent Infant Interaction Therapy Meditation Dietitian/Airline Radio Operator Services Group Therapy Yoga [email or web address]/ Sherin Krishnan [phone] Private Practice: Telehealth Only Specializes in EMDR for Trauma None SEQUENTIAL SCREENINGS [facility] offers sequential screenings for women who are interested in screenings for chromosomal abnormalities and certain defects during a . The sequential screen combinesultrasound and blood tests to determine the risk of chromosomal abnormalities, including Down's Syndrome (Trisomy 21) and Trisomy 18, as well as open neural tube defects including spina bifida. Ultrasound examination is performed between 11 weeks and 13 weeks gestational age. Blood tests are drawn after the ultrasound and again later in the between 15 and 21 weeks gestational age. Please let your physician know if you are interested in this testing. It will require an appointment withour medication reconciliation technician. This is not an ultrasound performed by a physician in our office during a routine visit. SIGNS AND SYMPTOMS OF LABOR 1. Contractions every 10 minutes or more often 2. Clear, pink, or brownish fluid (water) leaking from vagina 3. Feeling that baby is pushing down, pressure 4. Low, dull backache 5. Cramps that feel like a period 6. Cramps with or without diarrhea If you notice any of the above symptoms, contact our office at [phone] and ask to speak with anurse. After hours, you can call doctors registry at [phone] OR call [facility] at [phone] ask to have the doctor solution make up operator paged. If you consider this an emergency, dial 9-1-5 or go to your nearest emergency department. NEED HELP? Are you dealing with a violent or abusive relationship? Are you a victim of rape or sexual assult? Call [facility] 24 hour Crisis Hotline: 695.193.2228 or 685-949-6858. MANUAL Your Guide to a Healthy manual is now on-line. Visit [facility].org/HealthyPregnancyGuide to download your free copy documented in [facility]-2024 Telephone encounter Note * Telephone Encounter - Toby Rome APRN.CNP - 05/21/2024 1:25 PM EDT Noted. She is welcome to move up her appointment. To call crisis line with any further thoughts of self harm Toby Rome APRN.CNP [facility]10-03-2024 Miscellaneous Notes* Telephone Encounter - Toby Rome APRN.CNP - 05/21/2024 1:25 PM EDT Noted. She is welcome to move up her appointment. To call crisis line with any further thoughts of self harm Toby Rome APRN.CNP * Telephone Encounter - Edilberto Bailey RN - 05/21/2024 12:53 PM EDT 14w4d Received phone call from [employer] nurse regarding patient. She stated her depression screen with them is worse this visit than last. She has occasional thoughts of harming self, but no plan in place. I then called the patient and she again agreed with that information. She declined visit for today d/twork. She states she has good support system and isn't alone at any point. She does not have a counselor, but she does have the 24 hour crisis hotline number if she would need it. Advised to keep appointment tomorrow with for sure then and call us if she changes her mind or crisis hotline as needed. Patient agreed. FYI. Edilberto Bailey RN documented in this encounterWay[facility]10-03-2024 Telephone encounter Note * Telephone Encounter - Edilberto Bailey RN - 05/21/2024 12:53 PM EDT 14w4d Received phone call from [employer] nurse regarding patient. She stated her depression screen with them is worse this visit than last. She has occasional thoughts of harming self, but no plan in place. I then called the patient and she again agreed with that information. She declined visit for today d/twork. She states she has good support system and isn't alone at any point. She does not have a counselor, but she does have the 24 hour crisis hotline number if she would need it. Advised to keep appointment tomorrow with for sure then and call us if she changes her mind or crisis hotline as needed. Patient agreed. FYI. Edilberto Bailey RN [facility]09-30-2024 Telephone encounter Note* Telephone Encounter - Alison Yu RN - 05/18/2024 4:50 PM EDT Spoke with patient. Appointment given. Alison Yu RN [facility]09-30-2024 Miscellaneous Notes* Telephone Encounter - Alison Yu RN - 05/18/2024 4:50 PM EDT Spoke with patient. Appointment given. Alison Yu RN * Telephone Encounter - Toby Rome APRN.CNP - 05/18/2024 4:37 PM EDT Please offer patient sooner appointment to discuss mental health if she'd like. Can be virtual. Toby Rome APRN.LUIS * Telephone Encounter - Matt Lewis RN - 05/18/2024 4:12 PM EDT Denisha a nurse with [employer] calling to notify the office that she met with the patient today to start her zofran pump and IV hydration. Nurse states they always do a depression screening as part of their evaluation and patient score moderate to severe. Nurse states her depression is more physical thanmental because she feels so horrible. Denies any thought of harming self or others. Matt Lewis RN documented in this encounterWay[facility]09-30-2024 Telephone encounter Note * Telephone Encounter - Toby Rome APRN.CNP - 05/18/2024 4:37 PM EDT Please offer patient sooner appointment to discuss mental health if she'd like. Can be virtual. Toby Rome APRN.CNP [facility]09-30-2024 Telephone encounter Note* Telephone Encounter - Matt Lewis RN - 05/18/2024 4:12 PM EDT Denisha a nurse with [employer] calling to notify the office that she met with the patient today to start her zofran pump and IV hydration. Nurse states they always do a depression screening as part of their evaluation and patient score moderate to severe. Nurse states her depression is more physical thanmental because she feels so horrible. Denies any thought of harming self or others. Matt Lewis RN [facility]09-29-2024 Physician Emergency department Note* GINETTE Ridley - 05/17/2024 6:36 PM EDT Emergency Department Report [facility] Service Date:.05/17/24 PCP: No primary care provider on file. Chief Complaint: Chief Complaint Patient presents with Problem Patient to ED with c/o I can't stop vomiting since yesterday. Patient is currently 14 weeks . States I'm getting a nurse tomorrow. HPI Zain Rose is a 19 y.o. female presents to the ED today due to nausea and vomiting during . Patient states she was a proximally 14 weeks . She was 1 para 0. Patient follows with [facility]. Patient has been ultrasound which was normal. She denies any abdominal pain, vaginal discharge or bleeding. She denies any urinary complaints. Patient states she did take promethazine at home without relief. Patient was told by her OB that if she goes a day without food that she needs to come to the ER for IV fluids. Review of Systems: Review of Systems Constitutional: Negative. HENT: Negative. Eyes: Negative. Respiratory: Negative. Cardiovascular: Negative. Gastrointestinal: Positive for nausea and vomiting. Musculoskeletal: Negative. Skin: Negative. Neurological: Negative. Psychiatric/Behavioral: Negative. Past Medical History: No past medical history on file. Past Surgical History: No past surgical history on file. Allergies: Not on File Medications: Patient's Medications New Prescriptions No medications on file Previous Medications PANTOPRAZOLE [address] TABLET DR Take 1 tablet by mouth daily. PROMETHAZINE 25 MG TABLET Take 1 tablet by mouth every 6 hours as needed for Nausea / Vomiting. Modified Medications No medications on file Discontinued Medications No medications on file Family History: History reviewed. No pertinent family history. Social History: Social History Socioeconomic History Marital status: Single Spouse name: Not on file Number of children: Not on file Years of education: Not on file Highest education level: Not on file Occupational History Not on file Tobacco Use Smoking status: Never Smokeless tobacco: Never Vaping Use Vaping status: Never Used Substance and Sexual Activity Alcohol use: Not Currently Drug use: Not Currently Sexual activity: Not on file Other Topics Concern Not on file Social History Narrative Not on file Social Determinants of Health Financial Resource Strain: Low Risk (06/27/2022) Received from [facility] Overall Financial Resource Strain (CARDIA) Difficulty of Paying Living Expenses: Not hard at all Food Insecurity: No Food Insecurity (06/27/2022) Received from [facility] Hunger Vital Sign Worried About Running Out of Food in the Last Year: Never true Ran Out of Food in the Last Year: Never true Transportation Needs: No Transportation Needs (06/27/2022) Received from [facility] PRAPARE - Transportation Lack of Transportation (Medical): No Lack of Transportation (Non-Medical): No Physical Activity: Insufficiently Active (06/27/2022) Received from [facility] Exercise Vital Sign Days of Exercise per Week: 1 day Minutes of Exercise per Session: 10 min Stress: Not on file Social Connections: Not on file Intimate Partner Violence: Not on file Housing Stability: Not on file Physical Exam: Physical Exam Vitals and nursing note reviewed. Constitutional: General: She is not in acute distress. Appearance: Normal appearance. She is not ill-appearing or toxic-appearing. HENT: Head: Normocephalic. Right Ear: External ear normal. Left Ear: External ear normal. Nose: Nose normal. Eyes: Pupils: Pupils are equal, round, and reactive to light. Cardiovascular: Rate and Rhythm: Normal rate. Heart sounds: Normal heart sounds. Pulmonary: Effort: Pulmonary effort is normal. Breath sounds: Normal breath sounds. Abdominal: General: Bowel sounds are normal. There is no distension. Palpations: Abdomen is soft. Tenderness: There is no abdominal tenderness. There is no right CVA tenderness or left CVA tenderness. Musculoskeletal: General: Normal range of motion. Cervical back: Normal range of motion. Skin: General: Skin is warm and dry. Capillary Refill: Capillary refill takes less than 2 seconds. Neurological: General: No focal deficit present. Mental Status: She is alert and oriented to person, place, and time. Psychiatric: Thought Content: Thought content normal. Vital Signs During ED Visit Patient Vitals for the past 24 hrs: BP Temp Temp src Pulse Resp SpO2 Height Weight 05/17/24 1819 135/82 -- -- 75 16 99 % -- -- 05/17/24 1722 135/80 -- -- 77 16 99 % -- -- 05/17/24 1636 137/83 98.5 F (36.9 C) Oral 89 17 98 % -- -- 05/17/24 1634 -- -- -- -- -- -- 1.676 m (5' 6) 66.7 kg (147 lb) Orders/Results: Orders Placed This Encounter CBC, EDIF, PLATELET CHEM 7 (LYTES,BUN,CREA,GLUC) Sodium chloride 0.9% IV solution 1,000 mL diphenhydrAMINE (BENADRYL) injection 25 mg Metoclopramide (REGLAN) injection 5 mg URINALYSIS, MACRO Results for orders placed or performed during the hospital encounter of 05/17/24 CBC, EDIF, PLATELET Result Value Ref Range WBC (WHITE BLOOD COUNT) 12.6 (H) 3.6 - 11.0 10*3/uL RBC 4.66 4.0 - 5.4 10*6/uL HEMOGLOBIN (HGB) 13.3 12.0 - 16.0 G/DL HEMATOCRIT (HCT) 39.7 36.0 - 48.0 % MEAN CELL VOLUME 85.3 80.0 - 100.0 FL Mean Cell HGB 28.5 26.0 - 35.0 PG MEAN CELL HGB CONCENTRATION 33.4 27.0 - 37.0 G/DL RBC DISTRIBUTION 13.3 11.5 - 14.5 % PLATELET COUNT 221 130 - 400 10*3/uL MEAN PLATELET VOLUME 9.3 7.4 - 11.0 FL DIFFERENTIAL TYPE AUTO DIFF % NEUTROPHILS 86.3 (H) 37.0 - 75.0 % LYMPHOCYTE 8.3 (L) 20.0 - 55.0 % MONOCYTE % 5.1 0.0 - 10.0 % EOSINOPHIL % 0.2 0.0 - 11.0 % BASOPHIL % 0.1 0.0 - 2.0 % Absolute Neutrophil Count 10.9 (H) 1.4 - 6.5 10*3/uL LYMPHOCYTES, ABSOLUTE 1.0 (L) 1.2 - 3.4 10*3/uL MONOCYTES, ABSOLUTE 0.7 0.0 - 0.7 10*3/uL ABSOLUTE EOSINOPHIL COUNT 0.0 0.0 - 0.7 10*3/uL ABSOLUTE BASOPHIL COUNT 0.0 0.0 - 0.2 10*3/uL CHEM 7 (LYTES,BUN,CREA,GLUC) Result Value Ref Range Glucose 91 70 - 100 MG/DL BUN 2 (L) 7 - 20 MG/DL CREATININE SERUM 0.44 (L) 0.70 - 1.20 MG/DL SODIUM 136 (L) 137 - 145 MMOL/L POTASSIUM 3.7 3.5 - 5.1 MMOL/L CHLORIDE 108 (H) 98 - 107 MMOL/L CARBON DIOXIDE (CO2) 22 22 - 30 MMOL/L ESTIMATED GFR, NON AMER 196 ml/min/1.73sq.m ESTIMATED GFR, 237 ml/min/1.73sq.m GFR COMMENT Average GFR for 18-29 years old = 116. URINALYSIS, MACRO Result Value Ref Range COLOR, URINE LIGHT YELLOW (A) YELLOW APPEARANCE, URINE CLEAR CLEAR Specific [place], Urine 1.015 1.010 - 1.025 PH URINE 7.0 5.0 - 7.0 Urine Protein NEGATIVE NEGATIVE mg/dl GLUCOSE, URINE NEGATIVE NEGATIVE mg/dl KETONES, URINE 80 (A) NEGATIVE mg/dl BILIRUBIN, URINE NEGATIVE NEGATIVE BLOOD, URINE DIPSTICK NEGATIVE NEGATIVE NITRITES, URINE NEGATIVE NEGATIVE UROBILINOGEN, URINE 0.2 0.2 - 1.0 E.U./dL LEUKOCYTE ESTERASE, URINE NEGATIVE NEGATIVE Radiographic Imaging No orders to display Procedures: Procedures Moderate Sedation Procedure: No ED Summary/MDM Patient presents to the ER with nausea and vomiting in early . Patient received a 1 L fluid bolus as well as Benadryl and Reglan. She was feeling improved. She was to follow up with her OBGYN tomorrow. Patient verbalized understanding and agrees with discharged home stable. Clinical Impression: 1. Nausea and vomiting during No follow-ups on file. New Prescriptions No medications on file Discontinued Medications No medications on file An After Visit Summary was printed and given to the patient with above information. . . GINETTE Ridley 05/17/24 1855 [facility]09-29-2024 Emergency department Note* Chyna Magaña APRN- HOG BUYER - 05/17/2024 6:36 PM EDT Emergency Department Report [facility] Service Date:.05/17/24 PCP: No primary care provider on file. Chief Complaint: Chief Complaint Patient presents with Problem Patient to ED with c/o I can't stop vomiting since yesterday. Patient is currently 14 weeks . States I'm getting a nurse tomorrow. RAY Rose is a 19 y.o. female presents to the ED today due to nausea and vomiting during . Patient states she was a proximally 14 weeks . She was 1 para 0. [facility] Patient has been ultrasound which was normal. She denies any abdominal pain, vaginal discharge or bleeding. She denies any urinary complaints. Patient states she did take promethazine at home without relief. Patient was told by her OB that if she goes a day without food that she needs to come to the ER for IV fluids. Review of Systems: Review of Systems Constitutional: Negative. HENT: Negative. Eyes: Negative. Respiratory: Negative. Cardiovascular: Negative. Gastrointestinal: Positive for nausea and vomiting. Musculoskeletal: Negative. Skin: Negative. Neurological: Negative. Psychiatric/Behavioral: Negative. Past Medical History: No past medical history on file. Past Surgical History: No past surgical history on file. Allergies: Not on File Medications: Patient's Medications New Prescriptions No medications on file Previous Medications PANTOPRAZOLE [address] TABLET DR Take 1 tablet by mouth daily. PROMETHAZINE 25 MG TABLET Take 1 tablet by mouth every 6 hours as needed for Nausea / Vomiting. Modified Medications No medications on file Discontinued Medications No medications on file Family History: History reviewed. No pertinent family history. Social History: Social History Socioeconomic History Marital status: Single Spouse name: Not on file Number of children: Not on file Years of education: Not on file Highest education level: Not on file Occupational History Not on file Tobacco Use Smoking status: Never Smokeless tobacco: Never Vaping Use Vaping status: Never Used Substance and Sexual Activity Alcohol use: Not Currently Drug use: Not Currently Sexual activity: Not on file Other Topics Concern Not on file Social History Narrative Not on file Social Determinants of Health Financial Resource Strain: Low Risk (06/27/2022) Received from [facility] Overall Financial Resource Strain (CARDIA) Difficulty of Paying Living Expenses: Not hard at all Food Insecurity: No Food Insecurity (06/27/2022) Received from [facility] Hunger Vital Sign Worried About Running Out of Food in the Last Year: Never true Ran Out of Food in the Last Year: Never true Transportation Needs: No Transportation Needs (06/27/2022) Received from [facility] PRAPARE - Transportation Lack of Transportation (Medical): No Lack of Transportation (Non-Medical): No Physical Activity: Insufficiently Active (06/27/2022) Received from [facility] Exercise Vital Sign Days of Exercise per Week: 1 day Minutes of Exercise per Session: 10 min Stress: Not on file Social Connections: Not on file Intimate Partner Violence: Not on file Housing Stability: Not on file Physical Exam: Physical Exam Vitals and nursing note reviewed. Constitutional: General: She is not in acute distress. Appearance: Normal appearance. She is not ill-appearing or toxic-appearing. HENT: Head: Normocephalic. Right Ear: External ear normal. Left Ear: External ear normal. Nose: Nose normal. Eyes: Pupils: Pupils are equal, round, and reactive to light. Cardiovascular: Rate and Rhythm: Normal rate. Heart sounds: Normal heart sounds. Pulmonary: Effort: Pulmonary effort is normal. Breath sounds: Normal breath sounds. Abdominal: General: Bowel sounds are normal. There is no distension. Palpations: Abdomen is soft. Tenderness: There is no abdominal tenderness. There is no right CVA tenderness or left CVA tenderness. Musculoskeletal: General: Normal range of motion. Cervical back: Normal range of motion. Skin: General: Skin is warm and dry. Capillary Refill: Capillary refill takes less than 2 seconds. Neurological: General: No focal deficit present. Mental Status: She is alert and oriented to person, place, and time. Psychiatric: Thought Content: Thought content normal. Vital Signs During ED Visit Patient Vitals for the past 24 hrs: BP Temp Temp src Pulse Resp SpO2 Height Weight 05/17/24 1819 135/82 -- -- 75 16 99 % -- -- 05/17/24 1722 135/80 -- -- 77 16 99 % -- -- 05/17/24 1636 137/83 98.5 F (36.9 C) Oral 89 17 98 % -- -- 05/17/24 1634 -- -- -- -- -- -- 1.676 m (5' 6) 66.7 kg (147 lb) Orders/Results: Orders Placed This Encounter CBC, EDIF, PLATELET CHEM 7 (LYTES,BUN,CREA,GLUC) Sodium chloride 0.9% IV solution 1,000 mL diphenhydrAMINE (BENADRYL) injection 25 mg Metoclopramide (REGLAN) injection 5 mg URINALYSIS, MACRO Results for orders placed or performed during the hospital encounter of 05/17/24 CBC, EDIF, PLATELET Result Value Ref Range WBC (WHITE BLOOD COUNT) 12.6 (H) 3.6 - 11.0 10*3/uL RBC 4.66 4.0 - 5.4 10*6/uL HEMOGLOBIN (HGB) 13.3 12.0 - 16.0 G/DL HEMATOCRIT (HCT) 39.7 36.0 - 48.0 % MEAN CELL VOLUME 85.3 80.0 - 100.0 FL Mean Cell HGB 28.5 26.0 - 35.0 PG MEAN CELL HGB CONCENTRATION 33.4 27.0 - 37.0 G/DL RBC DISTRIBUTION 13.3 11.5 - 14.5 % PLATELET COUNT 221 130 - 400 10*3/uL MEAN PLATELET VOLUME 9.3 7.4 - 11.0 FL DIFFERENTIAL TYPE AUTO DIFF % NEUTROPHILS 86.3 (H) 37.0 - 75.0 % LYMPHOCYTE 8.3 (L) 20.0 - 55.0 % MONOCYTE % 5.1 0.0 - 10.0 % EOSINOPHIL % 0.2 0.0 - 11.0 % BASOPHIL % 0.1 0.0 - 2.0 % Absolute Neutrophil Count 10.9 (H) 1.4 - 6.5 10*3/uL LYMPHOCYTES, ABSOLUTE 1.0 (L) 1.2 - 3.4 10*3/uL MONOCYTES, ABSOLUTE 0.7 0.0 - 0.7 10*3/uL ABSOLUTE EOSINOPHIL COUNT 0.0 0.0 - 0.7 10*3/uL ABSOLUTE BASOPHIL COUNT 0.0 0.0 - 0.2 10*3/uL CHEM 7 (LYTES,BUN,CREA,GLUC) Result Value Ref Range Glucose 91 70 - 100 MG/DL BUN 2 (L) 7 - 20 MG/DL CREATININE SERUM 0.44 (L) 0.70 - 1.20 MG/DL SODIUM 136 (L) 137 - 145 MMOL/L POTASSIUM 3.7 3.5 - 5.1 MMOL/L CHLORIDE 108 (H) 98 - 107 MMOL/L CARBON DIOXIDE (CO2) 22 22 - 30 MMOL/L ESTIMATED GFR, NON AMER 196 ml/min/1.73sq.m ESTIMATED GFR, 237 ml/min/1.73sq.m GFR COMMENT Average GFR for 18-29 years old = 116. URINALYSIS, MACRO Result Value Ref Range COLOR, URINE LIGHT YELLOW (A) YELLOW APPEARANCE, URINE CLEAR CLEAR Specific [place], Urine 1.015 1.010 - 1.025 PH URINE 7.0 5.0 - 7.0 Urine Protein NEGATIVE NEGATIVE mg/dl GLUCOSE, URINE NEGATIVE NEGATIVE mg/dl KETONES, URINE 80 (A) NEGATIVE mg/dl BILIRUBIN, URINE NEGATIVE NEGATIVE BLOOD, URINE DIPSTICK NEGATIVE NEGATIVE NITRITES, URINE NEGATIVE NEGATIVE UROBILINOGEN, URINE 0.2 0.2 - 1.0 E.U./dL LEUKOCYTE ESTERASE, URINE NEGATIVE NEGATIVE Radiographic Imaging No orders to display Procedures: Procedures Moderate Sedation Procedure: No ED Summary/MDM Patient presents to the ER with nausea and vomiting in early . Patient received a 1 L fluid bolus as well as Benadryl and Reglan. She was feeling improved. She was to follow up with her OBGYN tomorrow. Patient verbalized understanding and agrees with discharged home stable. Clinical Impression: 1. Nausea and vomiting during No follow-ups on file. New Prescriptions No medications on file Discontinued Medications No medications on file An After Visit Summary was printed and given to the patient with above information. . . Chyna Magaña APRN-LUIS 05/17/241854 * Ani Matos RN - 05/17/2024 4:36 PM EDT Patient denies any cramping or spotting [facility] Emergency [facility] Note* Ani Matos RN - 05/17/2024 4:36 PM EDT Patient denies any cramping or spotting [facility] Telephone encounter Note* Telephone Encounter - Edilberto Bailey RN - 05/13/2024 10:02 AM EDT Order faxed to [facility]. Edilberto Bailey RN [facility]09-25-2024 Miscellaneous Notes* Telephone Encounter - Edilberto Bailey RN - 05/13/2024 10:02 AM EDT Order faxed to [facility]. Edilberto Bailey RN * Telephone Encounter - Toby Rome APRN.CNP - 05/13/2024 9:43 AM EDT Zofran pump ordered, form placed at nurse station. Toby Rome APRN.CNP documented in this encounterWay[facility]-2024 Telephone encounter Note * Telephone Encounter - Toby Rome APRN.CNP - 05/13/2024 9:43 AM EDT Zofran pump ordered, form placed at nurse station. Toby Rome APRN.CNP [facility]09-25-2024 NoteHNO ID: [id number] Author: IVANNA GARCÍA MA Service: ? Author Type: Thread Cutter Tender Type: Progress Notes Filed: 05/13/2024 09:44 Note Text: Patient here for First Trimester Screening. See ultrasound report for details. Options for genetic screening and diagnosis discussed with the patient. Patient opts for first trimester screening and the sequential screening protocol. Limitations of screening tests discussed with the patient. Toby Rome APRN.[facility]NPUniversity [facility] History of Present illness Narrative* Ivanna García MA - 05/13/2024 9:19 AM EDT Patient here for First Trimester Screening. See ultrasound report for details. Options for genetic screening and diagnosis discussed with the patient. Patient opts for first trimester screening and the sequential screening protocol. Limitations of screening tests discussed withthe patient. Toby Rome APRN.CNP documented in this encounterWay[facility]09-25-2024 Progress note* Quick Notes - Toby Rome APRN.CNP - 05/13/2024 8:48 AM EDT EH - S: Zain is a 19 year old female who presents at 13w3d for a routine visit. Denies headache, visual changes, chest pain, shortness of breath, vaginal bleeding, leakage of fluid, or dysuria. O: See flow sheet Gen: No apparent distress Abd: Gravid, nontender ASSESSMENT/PLAN: 1. Encounter for supervision of normal first in second trimester - ICD9: V22.0, ICD10: Z34.02 (primary diagnosis) - Nuchal today, report pending 2. 13 weeks gestation of - ICD9: V22.2, ICD10: Z3A.13 - Opts for sequential screening today 3. Hyperemesis gravidarum - ICD9: 643.00, ICD10: O21.0 - Continues to experience severe nausea and vomiting - Minimal food/water intake - Phenergan providing some relief - Recommend Zofran pump, ordered. RTO in 2 weeks to assess N+V or sooner as needed. Toby Rome APRN.CNP [facility]09-25-2024 Miscellaneous Notes* Quick Notes - Toby Rome APRN.CNP - 05/13/2024 8:48 AM EDT EH - S: Zain is a 19 year old female who presents at 13w3d for a routine visit. Denies headache, visual changes, chest pain, shortness of breath, vaginal bleeding, leakage of fluid, or dysuria. O: See flow sheet Gen: No apparent distress Abd: Gravid, nontender ASSESSMENT/PLAN: 1. Encounter for supervision of normal first in second trimester - ICD9: V22.0, ICD10: Z34.02 (primary diagnosis) - Nuchal today, report pending 2. 13 weeks gestation of - ICD9: V22.2, ICD10: Z3A.13 - Opts for sequential screening today 3. Hyperemesis gravidarum - ICD9: 643.00, ICD10: O21.0 - Continues to experience severe nausea and vomiting - Minimal food/water intake - Phenergan providing some relief - Recommend Zofran pump, ordered. RTO in 2 weeks to assess N+V or sooner as needed. Toby Rome APRN.CNP documented in this encounterWay[facility]09-25-2024 Instructions* Patient Instructions* Ivanna García MA - 05/13/2024 8:34 AM EDT SEQUENTIAL SCREENINGS The [facility] offers sequential screenings for women who are interested in screenings for chromosomal abnormalities and certain defects during a . The sequential screen combinesultrasound and blood tests to determine the risk of chromosomal abnormalities, including Down's Syndrome (Trisomy 21) and Trisomy 18, as well as open neural tube defects including spina bifida. Ultrasound examination is performed between 11 weeks and 13 weeks gestational age. Blood tests are drawn after the ultrasound and again later in the between 15 and 21 weeks gestational age. Please let your physician know if you are interested in this testing. It will require an appointment withour medication reconciliation technician. This is not an ultrasound performed by a physician in our office during a routine visit. SIGNS AND SYMPTOMS OF LABOR 1. Contractions every 10 minutes or more often 2. Clear, pink, or brownish fluid (water) leaking from vagina 3. Feeling that baby is pushing down, pressure 4. Low, dull backache 5. Cramps that feel like a period 6. Cramps with or without diarrhea If you notice any of the above symptoms, contact our office at [phone] and ask to speak with anurse. After hours, you can call doctors registry at [phone] OR call [facility] at [phone] ask to have the doctor solution make up operator paged. If you consider this an emergency, dial [phone] or go to your nearest emergency department. NEED HELP? Are you dealing with a violent or abusive relationship? Are you a victim of rape or sexual assult? Call [facility] ([facility] 24 hour Crisis Hotline: 709.874.7004 or 838-101-4607. MANUAL Your Guide to a Healthy manual is now on-line. Visit [email or web address] to download your free copy SEQUENTIAL TESTING PROCESS Sequential Screen First Trimester Today you are currently: 13w3d weeks 05/13/2024: Ultrasound and blood test. Sequential Screen Second Trimester (16-17 Weeks Gestation) When you are called with your results, the nurse will give the optimal draw dates for the Sequential screen second trimester. Blood testing can be done at any [facility] lab. Please report to the any special duty nurse office front attendant for the Sequential Part 2 requisition and order before reporting to the lab. Your weight will need to be documented for testing. Please note: -No appointment is need for your second blood draw. -Office hours are 8 am to 4:30 pm. -Please have testing done prior to 12 noon on Saturday's -Once the sequential testing is started, in the first trimester the only follow- up will be for the sequential screen second trimester. Please don't have a Quad screen ordered by another provider. If you or your Provider have any questions please call your maternal medicine office, for east side please call [phone] or for the West side call [phone] and ask for the the nurse. Thank you. documented in this encounterWay[facility]09-20-2024 Miscellaneous Notes* Quick Notes - Toby Rome APRN.HOG BUYER - 05/08/2024 3:45 PM EDT EH - S: Zain is a 19 year old female who presents at 12w5d for a routine visit. Denies headache, visual changes, chest pain, shortness of breath, vaginal bleeding, leakage of fluid, or dysuria. O: See flow sheet Gen: No apparent distress Abd: Gravid, nontender ASSESSMENT/PLAN: Encounter for supervision of normal first in first trimester - ICD9: V22.0, ICD10: Z34.01(primary diagnosis) - Undecided on genetic screening. Wants nuchal. - Start LDA when nausea improves 12 weeks gestation of - ICD9: V22.2, ICD10: Z3A.12 - BOGDAN changed back to LMP due to formal dating consistent with LMP Anxiety during - ICD9: 648.43, 300.00, ICD10: O99.340, F41.9 - Reports about the same since last visit. Declines counseling or medication Hyperemesis gravidarum - ICD9: 643.00, ICD10: O21.0 7% weight loss Tried going to ER, but was waiting for 4 hours so she left Vomits up to 10x per day some days Taking Vitamin B6 and Unisom, as well as Zofran every 8 hours Eating and drinking, but some days not much Adding 25 mg of Phenergan. If not helpful, recommend Zofran pump. CMP ordered Toby Rome APRN.CNP Heartburn during in second trimester - ICD9: 646.83, 787.1, ICD10: O26.892, R12 - Pepcid effective Reviewed when to go to ER for nausea/vomiting - may need to return this weekend if symptoms worsen/don't improve. Continue small frequent meals and sips of water throughout day. Try to hydrate. RTO next week for nuchal and OB visit. Toby Rome APRN.CNP documented in this encounterWay[facility]09-20-2024 Progress note* Quick Notes - Toby Rome APRN.CNP - 05/08/2024 3:45 PM EDT EH - S: Zain is a 19 year old female who presents at 12w5d for a routine visit. Denies headache, visual changes, chest pain, shortness of breath, vaginal bleeding, leakage of fluid, or dysuria. O: See flow sheet Gen: No apparent distress Abd: Gravid, nontender ASSESSMENT/PLAN: Encounter for supervision of normal first in first trimester - ICD9: V22.0, ICD10: Z34.01(primary diagnosis) - Undecided on genetic screening. Wants nuchal. - Start LDA when nausea improves 12 weeks gestation of - ICD9: V22.2, ICD10: Z3A.12 - BOGDAN changed back to LMP due to formal dating consistent with LMP Anxiety during - ICD9: 648.43, 300.00, ICD10: O99.340, F41.9 - Reports about the same since last visit. Declines counseling or medication Hyperemesis gravidarum - ICD9: 643.00, ICD10: O21.0 7% weight loss Tried going to ER, but was waiting for 4 hours so she left Vomits up to 10x per day some days Taking Vitamin B6 and Unisom, as well as Zofran every 8 hours Eating and drinking, but some days not much Adding 25 mg of Phenergan. If not helpful, recommend Zofran pump. CMP ordered Toby Rome APRN.CNP Heartburn during in second trimester - ICD9: 646.83, 787.1, ICD10: O26.892, R12 - Pepcid effective Reviewed when to go to ER for nausea/vomiting - may need to return this weekend if symptoms worsen/don't improve. Continue small frequent meals and sips of water throughout day. Try to hydrate. RTO next week for nuchal and OB visit. Toby Rome APRN.CNP [facility]09-20-2024 Instructions* Patient Instructions* Ivanna García MA - 05/08/2024 3:39 PM EDT SEQUENTIAL SCREENINGS The [facility] offers sequential screenings for women who are interested in screenings for chromosomal abnormalities and certain defects during a . The sequential screen combinesultrasound and blood tests to determine the risk of chromosomal abnormalities, including Down's Syndrome (Trisomy 21) and Trisomy 18, as well as open neural tube defects including spina bifida. Ultrasound examination is performed between 11 weeks and 13 weeks gestational age. Blood tests are drawn after the ultrasound and again later in the between 15 and 21 weeks gestational age. Please let your physician know if you are interested in this testing. It will require an appointment withour medication reconciliation technician. This is not an ultrasound performed by a physician in our office during a routine visit. SIGNS AND SYMPTOMS OF LABOR 1. Contractions every 10 minutes or more often 2. Clear, pink, or brownish fluid (water) leaking from vagina 3. Feeling that baby is pushing down, pressure 4. Low, dull backache 5. Cramps that feel like a period 6. Cramps with or without diarrhea If you notice any of the above symptoms, contact our office at [phone] and ask to speak with anurse. After hours, you can call doctors registry at [phone] OR call [facility] at [phone] ask to have the doctor solution make up operator paged. If you consider this an emergency, dial 9--1 or go to your nearest emergency department. NEED HELP? Are you dealing with a violent or abusive relationship? Are you a victim of rape or sexual assult? Call [facility] ([place]) 24 hour Crisis Hotline: 723.375.6369 or 486-315-3099. MANUAL Your Guide to a Healthy manual is now on-line. Visit [email or web address] to download your free copy documented in this encounterWayne [facility]09-17-2024 Telephone encounter Note * Telephone Encounter - Carine Doherty RN - 05/05/2024 4:18 PM EDT Pt notified and voiced understanding. Carine Doherty RN [facility]09-17-2024 Miscellaneous Notes* Telephone Encounter - Carine Doherty RN - 05/05/2024 4:18 PM EDT Pt notified and voiced understanding. Carine Doherty RN * Telephone Encounter - Katina Reddy MD - 05/05/2024 4:05 PM EDT Recommend snacks with protein & fat. Should hydrate with water. Keep Saturday appt. Katina Reddy MD * Telephone Encounter - Alison Yu RN - 05/05/2024 4:01 PM EDT 11w2d For the last week and a half patient has been feeling shaky, like she could faint, dizzy, and nauseated. If she drinks a pop the feeling will subside, but then she's nauseated afterwards. States she is eating a snack every hour - carrots, chips, crackers (mostly carbs). Drinking x8 32 oz water bottles a day. She sometimes feels this way if she is standing up for while. Please advise. Alison Yu RN documented in this encounterWayne [facility]09-17-2024 Telephone encounter Note * Telephone Encounter - Katina Reddy MD - 05/05/2024 4:05 PM EDT Recommend snacks with protein & fat. Should hydrate with water. Keep Saturday appt. Katina Reddy MD [facility] Work Phone: [phone]) 906-625709-17-2024 Telephone encounter Note* Telephone Encounter - Alison Yu RN - 05/05/2024 4:01 PM EDT 11w2d For the last week and a half patient has been feeling shaky, like she could faint, dizzy, and nauseated. If she drinks a pop the feeling will subside, but then she's nauseated afterwards. States she is eating a snack every hour - carrots, chips, crackers (mostly carbs). Drinking x8 32 oz water bottles a day. She sometimes feels this way if she is standing up for while. Please advise. Alison Yu RN [facility]09-12-2024 Telephone encounter Note* Telephone Encounter - Edilberto Bailey RN - 04/30/2024 10:37 AM EDT Patient notified. Edilberto Bailey RN The following approved medication requests have been transmitted electronically. Requested Prescriptions Signed Prescriptions Disp Refills pantoprazole DR (PROTONIX) 20 mg tablet 30 tablet 2 Sig: Take 1 tablet by mouth once daily. Authorizing Provider: SETH CASTRO Pharmacy Information Pharmacy Address Telephone [id number] [place] [address] [facility]09-12-2024 Miscellaneous Notes* Telephone Encounter - Edilberto Bailey RN - 04/30/2024 10:37 AM EDT Patient notified. Edilberto Bailey RN The following approved medication requests have been transmitted electronically. Requested Prescriptions Signed Prescriptions Disp Refills pantoprazole DR (PROTONIX) 20 mg tablet 30 tablet 2 Sig: Take 1 tablet by mouth once daily. Authorizing Provider: SETH CASTRO Pharmacy Information Pharmacy Address Telephone [facility]/pharmacy #[id number] [place], [place] [address] * Telephone Encounter - Seth Castro APRN.CNM - 04/30/2024 10:09 AM EDT Discontinue Pepcid medication. Will send RX for Protonix 20 mg PO Daily. Please notify patient thisis taken once a day and is an extended release medication. Seth Castro APRN.CNM * Telephone Encounter - Edilberto Bailey RN - 04/30/2024 8:18 AM EDT 10w4d Calling c/o worsening heartburn. Has been taking Pepcid 20mg BID. It was helping up until the past day. She tried taking Tums too and vomited d/t the taste of it. Asking what else she can do or if she should try different medication. Mychart message sent with some other recommendations too. Please advise. Edilberto Bailey RN documented in this encounterWayne [facility]09-12-2024 Telephone encounter Note * Telephone Encounter - Seth Castro APRN.CNM - 04/30/2024 10:09 AM EDT Discontinue Pepcid medication. Will send RX for Protonix 20 mg PO Daily. Please notify patient thisis taken once a day and is an extended release medication. Seth Castro APRN.CNM [facility]09-12-2024 Telephone encounter Note* Telephone Encounter - Edilberto Bailey RN - 04/30/2024 8:18 AM EDT 10w4d Calling c/o worsening heartburn. Has been taking Pepcid 20mg BID. It was helping up until the past day. She tried taking Tums too and vomited d/t the taste of it. Asking what else she can do or if she should try different medication. [employer] message sent with some other recommendations too. Please advise. Edilberto Bailey RN [facility]08-30-2024 History of Present illness Narrative* Franco Caal APRN.CNP - 04/17/2024 3:50 PM EDT Images from the original note were not included. Subjective HPI Nontoxic-appearing female presents urgent care accompanied by significant other. Chief complaint rash. Duration of symptoms 2 days. Associated symptoms pruritic rash on lower legs. No OTC medication use today. Did take Benadryl last night this helps some. No recent medication changes antibiotic use. Overall feels well. No pain. Denies any fever body aches chills nausea vomiting abdominal pain. Currently 10 weeks . Past medical history prescription medications allergies reviewed. .Patient presents with: Hives: BLE's covered in hives x 2 days, red bumps and itchy PAST MEDICAL HISTORY No date: ADHD (attention deficit hyperactivity disorder) No date: Generalized anxiety disorder No date: NEGATIVE MEDICAL HISTORY Comment: normal color vision age 2 years: past medical history of Comment: dermatoid - by her right eye PAST SURGICAL HISTORY 10/07/2023: NEXPLANON REMOVAL; Left No date: PAST SURGICAL HISTORY OF Comment: surgery on eye ALLERGIES Patient has no known allergies. MEDICATIONS ondansetron (ZOFRAN) 4 mg tablet Take 1 tablet by mouth every 8 hours as needed for nausea/vomiting. famotidine (PEPCID) 20 mg tablet Take 1 tablet by mouth two times a day. PNV/iron,carb/docusat/folic ac (PRENA-CAP ORAL) Take 1 tablet by mouth once daily. FAMILY HISTORY Problem Relation Age of Onset Allergies Father Breast Cancer Maternal Grandmother Social History Tobacco Use Smoking status: Never Smokeless tobacco: Never Tobacco comments: no smoking in home Vaping Use Vaping status: Former Quit date: 03/08/2024 Substance Use Topics Alcohol use: Not Currently Comment: no alcohol use in home Drug use: Never BP 106/70 Pulse 92 Temp 36.6 C (97.9 F) Resp 20 Wt 69 kg (152 lb 1.9 oz) LMP 2024 (Approximate) SpO2 97% BMI 24.55 kg/m Review of Systems Constitutional: Negative for chills, fever and malaise/fatigue. HENT: Negative for congestion, ear discharge, ear pain, sinus pain and sore throat. Eyes: Negative for blurred vision, pain, discharge and redness. Respiratory: Negative for cough, hemoptysis, sputum production, shortness of breath, wheezing and stridor. Cardiovascular: Negative for chest pain. Gastrointestinal: Negative for abdominal pain, diarrhea, nausea and vomiting. Musculoskeletal: Negative for myalgias. Skin: Positive for itching and rash. Neurological: Negative for dizziness and headaches. Objective Physical Exam Constitutional: General: She is not in acute distress. Appearance: She is not diaphoretic. HENT: Head: Normocephalic. Jaw: No trismus, tenderness, swelling or pain on movement. Mouth/Throat: Mouth: Mucous membranes are moist. Pharynx: Oropharynx is clear. Uvula midline. No pharyngeal swelling, posterior oropharyngeal erythema or uvula swelling. Eyes: Conjunctiva/sclera: Conjunctivae normal. Pupils: Pupils are equal, round, and reactive to light. Cardiovascular: Rate and Rhythm: Normal rate and regular rhythm. Heart sounds: Normal heart sounds. Pulmonary: Effort: Pulmonary effort is normal. No tachypnea, accessory muscle usage or respiratory distress. Breath sounds: Normal breath sounds. No stridor. No wheezing, rhonchi or rales. Abdominal: Palpations: Abdomen is soft. Musculoskeletal: Cervical back: Normal range of motion and neck supple. No edema, erythema, rigidity or tenderness. No pain with movement. Normal range of motion. Lymphadenopathy: Cervical: No cervical adenopathy. Skin: General: Skin is warm and dry. Comments: Maculopapular rash noted highlighted area. No pustules noted. Rash is blanching. Spares palms of hands. No mucosal membrane involvement or desquamation of skin. No adenopathy. Neurological: Mental Status: She is alert and oriented to person, place, and time. ASSESSMENT/PLAN: 1. Rash - ICD9: 782.1, ICD10: R21 Diagnosed with rash. Treat as contact dermatitis. Use hydrocortisone 1% as needed. Can use second-generation antihistamine such as Zyrtec. Treat as dermatitis no evidence of bacterial infection. Patient was educated on supportive therapies. Patient will follow up with primary care provider as needed. Patient was instructed to immediately proceed to emergency room for any new, worsening, or symptoms lasting longer than anticipated. The patient's clinical presentation is otherwise unremarkable at this time. Based on exam and clinical finding, the patient is stable for discharge. Plan of care was discussed with patient. Patient verbalizes understanding and agrees to plan of care. This note was generated using [employer]ap[employer] software. It may contain errors in wording, punctuation, or spelling. Franco Caal APRN.HOG BUYER documented in this encounterWayne Healthcare [facility] Campus08-26-2024 History of Present illness Narrative* Terri Cancino MD - 04/13/2024 7:50 AM EDT Zain Rose is a 19 year old female who presented for panel sewer ultrasound today. Encounter Diagnosis ICD-10-CM 1. with uncertain dates in first trimester Z34.91 Please see report under imaging tab. Terri Cancino MD April 13, 2024 7:50 AM documented in this encounterWayne [facility]08-15-2024 Telephone encounter Note * Telephone Encounter - Shantal Daniel LPN - 04/02/2024 12:05 PM EDT Patient notified [facility]08-15-2024 Miscellaneous Notes* Telephone Encounter - Shantal Daniel LPN - 04/02/2024 12:05 PM EDT Patient notified * Telephone Encounter - Katina Reddy MD - 04/02/2024 11:35 AM EDT Please cancel appointment for tomorrow. Needs formal US next Saturday for dating. Katina Reddy MD * Telephone Encounter - Alison Yu RN - 04/02/2024 9:28 AM EDT 6w4d While reviewing schedules it was noted that patient is scheduled tomorrow for one week follow up and bedside US. She tested positive for COVID yesterday. Office note states that she needs repeat dating US. Can you please review chart and advise how to reschedule her visit. Thank you. Alison Yu, RN documented in this encounterWayne Healthcare [facility]08-15-2024 Telephone encounter Note * Telephone Encounter - Katina Reddy MD - 04/02/2024 11:35 AM EDT Please cancel appointment for tomorrow. Needs formal US next Saturday for dating. Katina Reddy MD [facility]08-15-2024 Telephone encounter Note* Telephone Encounter - Alison Yu RN - 04/02/2024 9:28 AM EDT 6w4d While reviewing schedules it was noted that patient is scheduled tomorrow for one week follow up and bedside US. She tested positive for COVID yesterday. Office note states that she needs repeat dating US. Can you please review chart and advise how to reschedule her visit. Thank you. Alison Yu, RN [facility]08-14-2024 History of Present illness Narrative* Kirby Sarmiento, ULISES.HOG BUYER - 04/01/2024 3:30 PM EDT This note was created using makexyz. Subjective Zain Rose is a 19 year old female. HPI Pt's coworker is lexi postnatali. For the last two days pt has had sore throat congestion fever nausea and cough.. Pt is 7 weeks and states she is feeling more nauseated than baseline however she is still urinating 3-4 times a day and able to tolerate fluids. She denies any abdominal pain vaginal bleeding or discharge urinary burning or frequency. Review of Systems Constitutional: Positive for fever. HENT: Positive for congestion and sore throat. Respiratory: Positive for cough. Gastrointestinal: Positive for nausea. Objective BP 100/64 Pulse 105 Temp 37 C (98.6 F) Resp 20 Wt 71.2 kg (156 lb 15.5 oz) LMP 2024(Approximate) SpO2 96% BMI 25.34 kg/m Physical Exam Vitals and nursing note reviewed. Constitutional: General: She is not in acute distress. Appearance: Normal appearance. She is not ill-appearing. HENT: Head: Normocephalic. Mouth/Throat: Mouth: Mucous membranes are moist. Eyes: Conjunctiva/sclera: Conjunctivae normal. Cardiovascular: Rate and Rhythm: Regular rhythm. Tachycardia present. Pulmonary: Effort: Pulmonary effort is normal. Breath sounds: Normal breath sounds. Musculoskeletal: General: Normal range of motion. Cervical back: Normal range of motion. Skin: General: Skin is warm and dry. Neurological: General: No focal deficit present. Mental Status: She is alert. Psychiatric: Mood and Affect: Mood normal. Behavior: Behavior normal. Assessment and Plan ASSESSMENT/PLAN: 1. URI, acute - ICD9: 465.9, ICD10: J06.9 - Discussed viral etiology and rationale for treatment. - Symptomatic treatment with prn analgesia - Supportive care with fluids and rest -Patient swab for COVID. We discussed the risk and benefits of treatment with Paxlovid and at this time patient states she would prefer not to be treated if the test comes back positive. -Patient encouraged to return immediately for reevaluation for any increased nausea vomiting, worsening of symptoms. - COVID NAAT, UPPER RESPIRATORY, ROUTINE Kirby Sarmiento APRN.HOG BUYER documented [facility] History of Present illness Narrative* Toby Rome APRN.CNP - 03/24/2024 3:35 PM EDT Bioinformatics Specialist offered: Patient declines. INITIAL OB ASSESSMENT HPI: Zain is a 19 year old No obstetric history on file. White here to establish Obstetrical Care. Patient's last menstrual period was 09/30/2023 (approximate). from OB Dating Form. was unplanned but accepted Complaints: Abdominal pain (mild light cramping) OB History No obstetric history on file. Previous history: Prior : never History of 4th degree laceration: NA History of shoulder dystocia: No History of Hypertensive disorders including pre-eclampsia or gestational hypertension: No History of gestational diabetes: No Patient's Risk Screening for delivery: Have you had a prior menezes between 20w and 36w6d? No How many pregnancies have you had before? 0 Did you have a previous baby with a GBS Infection? No Please select all that apply for any prior : N/A MEDICAL/PSYCHOSOCIAL HISTORY: History of hemorrhage or bleeding concerns: No Thyroid Disease: No History of chronic hypertension: No History of pre-existing diabetes: No No results found for: ABORHD No weight on file for this encounter. Last Pap: History of abnormal pap: No Prior treatment for cervical dysplasia: none. Last HPV: History of STDs: None Partner History of STDs: None Did you have a partner with Herpes? No Tobacco use: No E-Cigarette/Vaping Use: No Caffeine use: Yes, 60-80 mg per day Drug use: No Alcohol use: No Multivitamin with Folic acid: Yes Would refuse blood transfusion if medically necessary: No Social Needs: How often does this describe you? I don't have enough money to pay my bills: Sometimes Within the past 12 months, have you worried that your food would run out before you had money to buy more? Sometimes In the past 12 months, has lack of reliable transportation kept you from going to medical appointments or work, or from getting things needed for daily living? Never In the past 12 months, have you had any concerns about having a place to live, or about the condition or quality of your housing? Never Would you like more information on any of the following (please check all that apply)? Not interested Social History: Do you have any history of depression, anxiety, PTSD, or other mood problems? Yes Do you have a history of abuse or trauma that may impact your experience? No Are you currently employed? Yes Depression/Anxiety Screening: Admits to anxiety. OB Depression and Anxiety Screening- This Encounter (since 03/26/2024) Over the past 2 weeks have you felt down, depressed, or hopeless? Negative Over the past two weeks, have you felt little interest or pleasure in doing things? Negative Feeling nervous, anxious or on edge 1-Several days Not being able to stop or control worrying 1-Several days Anxiety Pre-Screening Total (If >/= 3 additional questions will be reviewed) 2 Genetic Screening: Partner present: No Patient verbalized knowledge of partner family health history: Yes Do you or your partner have any personal or family history of defects not previously discussed: No Do you have history of a complicated by anomaly, genetic condition, or demise: No OB Risk Screening: Completed, no positive findings documented. Marital Status:Co-habitating Partner: Name: Enzo Age: 20 Occupation: [employer] Gender: Male PAST MEDICAL HISTORY No date: NEGATIVE MEDICAL HISTORY Comment: normal color vision age 2 years: past medical history of Comment: dermatoid - by her right eye PAST SURGICAL HISTORY 10/07/2023: NEXPLANON REMOVAL; Left No date: PAST SURGICAL HISTORY OF Comment: surgery on eye Current Outpatient Medications Medication Sig Dispense Refill PNV/iron,carb/docusat/folic ac (PRENA-CAP ORAL) Take 1 tablet by mouth once daily. No current facility-administered medications for this visit. Allergies As of Date: 03/27/2024 (No Known Allergies) Fully Assessed 03/09/2024 Does patient have penicillin allergy: No REVIEW OF SYSTEMS: GENERAL: Negative for: Fever or Chills HEENT: Negative for: Headache, Impaired Vision, Ringing in Ears, Nosebleeds NECK: Negative for: Swelling, Pain, Stiffness RESPIRATORY: Negative for: Cough, Shortness of breath, Wheezing GASTROINTESTINAL: Negative for: Constipation, Diarrhea, Blood in stool, + nausea and heartburn MUSCULOSKELETAL: Negative for: Muscle or joint pain, stiffness, Joint swelling NEUROLOGIC/PSYCHIATRIC: Negative for: Weakness, Paralysis, Numbness, Tingling, Tremor, Depression, Memory loss + anxiety SKIN: Negative for: Rash, Itching GENITOURINARY: Negative for: vaginal itching, vaginal discharge, hematuria or dysuria PHYSICAL EXAM: BP 112/70 Pulse 76 Resp 14 Ht 5' 6 (1.68m) Wt 158 lb (71.7kg) SpO2 98% LMP 2024 BMI 25.51 kg/(m^2). GENERAL: pleasant in no apparent distress DERMATOLOGY: Normal, without lesions, non-icteric, and non-hirsute NECK: Supple, full range of motion, no adenopathy, and thyroid normal CHEST: Normal inspiratory effort BREAST: soft, non-tender, symmetric, no dominant mass, normal nipple-areolar complex, no lymphadenopathy, and no nipple discharge ABDOMEN: soft, non-tender, and no masses NEURO: alert and oriented x3,exam grossly non-focal PELVIS: External genitalia normal without lesions. Perineal body intact. No vaginal or cervical lesions. Cervix closed. Uterus <6 week size. No adnexal masses or tenderness. Clinical Pelvimetry: Pelvimetry clinically assessed as adequate Limited OB ultrasound exam: single intrauterine and positive cardiac activity ASSESSMENT: 19 year old No obstetric history on file. at 6w5d wks gestational age PLAN: 1) Patient oriented to practice. Patient given new OB orientation folder. Discussed nutrition, folic acid supplementation, dietary guidelines, exercise, smoking, alcohol, caffeine, and drug use. Discussed gestational weight gain guidelines. Discussed routine OB labs including STD/HIV. Discussed how to access Your guide to a health and the [employer]. Discussed hemoglobin electrophoresis. Patient: Accepts Reviewed midwifery and service station cashier services that are available. 2) Screening: Hemoglobin A1C: ordered Aneuploidy Screening: Discussed aneuploidy screening, nuchal translucency/first trimester early anatomy ultrasound and NIPT. The risks/benefits and limitations of NIPT/aneuploidy screening were reviewed including the potential for false negative and false positive results. The availability of genetic counseling was reviewed. Information on aneuploidy screening was provided. The patient chooses toproceed with First trimester early anatomy ultrasound (12-13w6d) Myriad Carrier Screening: Discussed myriad carrier screening. We discussed the availability of professional-society guided carrier screening and reviewed the conditions screened and limitations of screening. The availability of genetic counseling was reviewed. Information on carrier screening was provided. The patient is considering 3) Patient offered option of Virtual Visits. Patient unsure. May consider in future. ACTIVE PROBLEM LIST Encounter for Supervision of Normal First in First Trimester - 03/27/2024 Comment: Care Checklist Vaccines: [] Flu vaccine [] declined [] RSV vaccine 32 0/7 - 36 67 (Apr - Sep) [] declined [] COVID vaccine [] declined [] TDaP 27-36 [] declined First trimester: [x] Dating US [] 1st tri labs [] Pap smear NA [] Carrier screening - considering [] declined [] NIPT screening - considering [] declined [] First trimester anatomy scan [] declined [] universal ASA ordered (start 12w-16w) [] declined [] M Power Consult [] not indicated [] declined Second trimester: [] AFP [] declined [] Anatomy scan [] Mode of Delivery - [] Feeding - [] Pump ordered [] Diabetes screen [] CBC, RPR Third trimester (28-30 weeks): [] Consent [] Contraception - [] Bicycle Messenger Third trimester (36-40 weeks): [] GBS [] Presentation - [] Scheduled [] yes - Hibiclens, pre-op instructions, CBC, T&S ordered [] no [] H&P With Uncertain Dates in First Trimester - 03/27/2024 Comment: POCUS not consistent with LMP. Repeat dating ultrasound in 1 week. Family History of Deafness - 03/27/2024 Comment: FOB. Unknown etiology. Discussed baby will be screened before leaving hospital. Nausea and Vomiting During - 03/27/2024 Comment: 03/27/24 Not able to eat much or drink much. Hydration encouraged. Vitamin B6 and Unisom doses reviewed. Zofran rx sent in the event that nausea/vomiting becomes severe. Reviewed risks in 1st trimester, written info provided. Tobyanneliese Rome APRN.CNP Heartburn During in First Trimester - 03/27/2024 Comment: Pepcid rx sent. Anxiety During - 03/27/2024 Comment: Coping well at this time. Declines counseling and medication. Mental health resources provided. To update throughout . Adhd (Attention Deficit Hyperactivity Disorder) - 08/28/2011 Comment: Coping well at this time. Not on any medication. Follow up in 1 weeks or sooner. Needs repeat dating ultrasound. Toby Rome APRN.CNP documented in [facility] Instructions* Patient Instructions* Toby Rome APRN.CNP - 03/24/2024 3:35 PM EDT Images from the original note were not included. Please select the following link to access the [facility] Your Guide to a Healthy . [email or web address] Please select the following link to access the [facility] Your Guide to a Healthy . [email or web address] MORNING SICKNESS IN by Norma Srivastava M.D. for [employer] As you may already know, morning sickness can often be more appropriately called evening sickness or oeoru-ariibd-du-the-day sickness. While there are the lefty few, most women (50-90%) experience some degree of nausea, some have vomiting, and a few develop a severe form of vomiting duringpregnancy called hyperemesis gravidarum. What causes the nausea and vomiting of ? We can't explain why some people feel fine and others are green for months. Even the same woman mayfeel vastly different in each . There is some relationship between nausea and the level ofthe hormone hCG. In twin pregnancies, and in other situations where the hCG is greater than expected, nausea and vomiting tend to be worse. In a destined for miscarriage, hCG levels tend to be low, and nausea is often less severe. This being said, a lack of nausea doesn't guarantee that the is destined for miscarriage. The fact that nausea and vomiting are often signs of a healthy can offer a silver lining in the dark cloud of miserable nausea. How long will the nausea last? Fortunately, for most women, nausea and vomiting are a first trimester event, peaking at week 9-10 and waning by week 14-16. When you are feeling bad the weeks can go by slowly but most momsdo feel tremendously better by the middle of the . Whether morning sickness is a brief experience or lasts through most of the , there are treatments that can make the weeks or months more tolerable. What can you do about it? Diet: See what works for you. Try eating bland dry foods, and avoid fatty or spicy foods. It is okay to eat a less than perfectly balanced diet in the first trimester. Have your liquids separately from dry foods. Try sports drinks, water, clear juices, Monty-aid, or non-caffeinated tea. Avoid carbonated beverages that fill up your stomach. Try eating lots of little meals. If you tend to feel sick when you first wake up, leave crackers next to the bed for a quick snack before rising. Keeping healthy snacks with you all day to nibble when you feel queasy can sometimes even prevent nausea from starting. vitamins and nausea: Pre-chantale vitamins can sometimes worsen nausea in . While folate is necessary, especially early in the , it comes as a smaller pill that many people find more tolerable than the complete vitamin pill. Ask your practitioner if it is okay to temporarilyreplace vitamins and iron with just a folate pill if you find a significant worsening in the level of your nausea from the vitamins. Alternative therapies: Acupressure may be used to treat nausea in , and is not known to have any risks for the fetus. Wristbands (marketed for seasickness) that put pressure on an acupressure point at the wrist are often available at drugstores or travel stores. Umair root is used for nausea in many traditional cultures. Some women take fresh grated umair or umair tablets. It is possible that the pill form contains other ingredients or contaminants, so you may want to try fresh umair first. Medications: Emetrol is the only nausea medication approved for use in . It is available over the counter and is soothing to the stomach. A prescription medication called Bendectin was available in the -1979's and was shown to be safe in , but the company stopped marketing it in the [place] due to the costs of liability coverage. Bendectin contained 10 milligrams of vitamin B6 and 10 milligrams of Doxylamine. Two tablets were given at bedtime and a total of up to 4 tablets could be used in a 24-hour period. Interestingly, Unisom , which contains a higher dose (25 mg.) of the same medication, Doxylamine, is currently marketed as an hydp-evi-xyeqehg sleeping pill. Ask your practitioner if creating a vitamin B6/Doxylaminecombination with otsv-ytw-fttejoe medications would be safe for you. Prescription medications like Compazine and Phenergan can be used if the benefits outweigh possiblerisks, but these have not been clearly shown to be safe in . Zofran , an expensive anti-nausea medication often used to treat nausea from chemotherapy, can also be used. Can I throw up so much it harms the baby? The act of vomiting cannot hurt your fetus, which is protected inside the uterus. If you get dehydrated or develop a metabolic imbalance, this can be unhealthy. As long as you can keep down liquids, you and your baby will generally do all right. Eat when you feel able. If you are unable to keep anyt bert down, or if you notice potential signs of dehydration such as lightheadedness, or concentratedand/or infrequent urination, call your practitioner. Some women need brief hospital admission for intravenous fluids and anti-nausea medications if their condition becomes severe. This severe form ofnausea and vomiting is called Hyperemesis Gravidarum. As with many symptoms of , remind yourself that this, too, shall pass, and you'll have a wonderful baby to show for it! TREATMENT OPTIONS, SHORT VERSION: Frequent small meals Hydrate throughout day [employer] wrist pressure point applicators Umair root (powdered, in capsules) 250mg four times a day Vitamin B6 25 mg tablet three times a day Also may be taken with half a tablet of Unisom three times a day (Doxylamine 12.5 mg) If severe (weight loss, dehydration), call us and come in for IV hydration and possible medication in the form of injections. Ondansetron (Zofran ) March 19, 2020 This sheet talks about exposure to ondansetron in a and while . This information should not take the place of medical care and advice from your healthcare provider. What is ondansetron? Ondansetron is a medication used to treat nausea and vomiting that may be caused by surgery, chemotherapy, or radiation therapy. Ondansetron has also been prescribed during to help with symptoms of nausea and vomiting in (NVP). NVP is also referred to as morning sickness . Ondansetron is taken by mouth, infused into a vein (by IV) or given by injection into a muscle (IM). Ondansetron is sold under the brand name Zofran . What can I do to help control my nausea and vomiting? [employer] has a helpful fact sheet on nausea in with recommendations. You can review it here: https://retsCloud.org/fact-sheets/xlvhmv-wzowfwoe-sptghnpkn-nvp/pdf/. Also, eating small meals often, drinking plenty of clear fluids, and avoiding triggers (such as odors, heat, and spicy or high fat foods) can help. Talk to your healthcare provider about which NVP treatments are right for you. I take ondansetron. Can it make it harder for me to become ? There are no studies that have looked to see if ondansetron could make it harder for a person to get . Studies in animals did not find that ondansetron would affect the ability to get . Does taking ondansetron increase the chance for miscarriage? Miscarriage can occur in any . One study did not find that miscarriage happened more oftenfor those who reported that they used ondansetron in the first trimester of . Does taking ondansetron increase the chance of defects? Every starts out with a 3-5% chance of having a defect. This is called the background risk. Most studies have found no increased chance for defects among thousands of people whoused ondansetron in the first trimester of . A few studies reported a very small (less than 1%) increase in the chance for a cleft palate (an opening in the roof of the mouth that may be repaired with surgery) or a heart defect. Because of other factors that could affect the pregnancies exposed to ondansetron, it is not known if ondansetron actually increases the chance of defects. Could taking ondansetron cause other complications? Studies did not find a higher chance of loss, delivery (delivery before 37 weeks of ), or low weight when ondansetron was used during . At higher doses, there have been reports that ondansetron use might cause a heart rhythm problem (called QT interval prolongation) in the person taking ondansetron. In severe cases, this could becomean abnormal heart rhythm known as Torsades de Pointes. If you are taking ondansetron, you can talk to your healthcare provider about how to watch for changes in your heart rhythm. Does taking ondansetron in cause long-term problems in behavior or learning for the baby? One study looked at 78 infants who were exposed to ondansetron at any time during . The infants were looked at between 7 days to 2 months of age and did not show any signs of unusual behaviors. A single follow-up survey for about 25 of these children was sent in by the parents. The children were between 1 to 5 years old. The survey asked about behavior. The surveys did not report behavior differences in these children compared to children who were not exposed ondansetron during . There are no other studies looking at the use of ondansetron in and long-term effects for the baby. Can I breastfeed while taking ondansetron? There have been no studies in humans looking at the use of ondansetron during . Studies in animals suggest that ondansetron enters breast milk, but the effects of ondansetron on a infant are not known. If ondansetron use is necessary, it is not usually a reason to stop . A different drug may be considered, especially while a or preterminfant. Be sure to talk to your healthcare provider about all your questions. I take ondansetron. Can it make it harder for me to get my partner or increase the chance of defects? There are no human studies looking at male use of ondansetron. Animal studies have not shown any effect on male fertility. In general, exposures that fathers and sperm donor have are unlikely to increase risks to a . For more information, please see the MotherToBaby fact sheet Paternal Exposures at https://mothertobaby.org/fact-sheets/rdinizue-nzlllukaj-xtgxnkkfv/pdf/. Prescription medications such as Phenergan, Compazine, Reglan Thank you for your interest in [facility] at [facility] [place] [facility]. Your provider has referred you for counseling services. Below you will find a list of options. Psychotherapy Services at [facility] Call Behavioral Health Access Line at [phone] to schedule Individual psychotherapy In-person or virtual Wait time for first evaluation may be 12 or more weeks. Wait list spots may be available. Due to the high volume of patients this option is recommended if you are looking for short term acute symptomcoping strategies. 5-876-3-FZIH4GPRL - [facility] Mental Health Hotline If you are in suicidal crisis, please call or text 1-913-830-TALK ( ) or visit the National Suicide Prevention Lifeline website. [facility]gov If you are in crisis, call 911 or go to your nearest Emergency Department Here are some links for wonderful Providers here in the community and surrounding areas. Do not hesitate to contact their offices, many are offering virtual visits during this time. Psychotherapy Services outside of [facility] Support International Online Provider Directory [email or web address] - can assist in finding providers in your area that might be more extensive then the list below. [facility] [place], [place] [address] [place] [address] [facility] [address] [place] [address] [facility] [address] [place] [address] [facility] [id number] [place], [place] [id number] Lien Mir MD [address] [place], [place] [id number] [facility] [address], [address] [place] [address] [facility] [address] [place] [address] [facility] [place] / [place] [phone]/ [phone] Miryam Kelsey [address] [facility] [address] [facility] [phone] [place] [facility] [place] / [place] [phone] [facility] services of [facility] [address] [place] [address]/ [place] [facility] [place] [phone] Mario Billingsley, MICHAEL, CLC [facility] Workshops, telehealth and at home visits. [phone] [facility] counseling alder 20 locations [place], [place], [place], [place], [place], [place], [place], [facility], [place], [place], [place], [place], [place], [place], [facility], [place], [place] ,[facility], [place], [place],[facility], [facility], [place], [facility], [facility], [place] www.DevZuzsouth coastal health campus emergency departmentCinelan [phone] Psychotherapy resources outside of [facility] are listed below [facility] Psychotherapy Web: https://www.Raw Science Inc./ Support International Online Provider Directory https://Fracture/ [facility] https://hearo.fm/ Partners for Behavioral Health and Wellness Web: https://ProBueno/ Contacts+ for Effective Living Web: https://BoxCat.PayRight Health Solutions.Hyperfair/ LifeStance Web: https://Feathr.Hyperfair/location/critical access hospital/[place]/ [facility] Web: https://www.[facility].org/ The Centers Web: https://Virally.org/ Recovery Resources Mental health and substance abuse help Web: https://www.OnQueue Technologiess.org & RESOURCES Support International Direct peer support and connection to professional resources Non-Emergency Helpline Phone: / Text: [phone] Web: https://www..net/ Online Provider Directory: https://Slyde Holding S.A.Hyperfair/ Online Support Meetings: https://www..net/get-help/rod-lqwcev-misbrtc-meetings/ MISHA Baby and Line Cook Services Web: https://TotalHousehold/ Chewse Expert information on medication use during and Text: [phone] Web: https://Essess, Inc/ NATIONAL REGISTRY FOR PSYCHIATRIC MEDICATIONS Currently studying the safety of antidepressants, ADHD medications and atypical antipsychotics taken during TO PARTICIPATE CALL TOLL-FREE: Web: https://womensmentalhealth.org/research/pregnancyregistry/ Support Groups: [facility]- Follow on facebook Baby Bistro support group led by [facility] department [facility] - Support Group [facility].org The POEM support group [phone] Www.poClear Water Outdooronline.org Follow on facebook - POEM noriega chapter Online support meetings PSI https://www..net/get-help/apo-qyqket-ayvezja-meetings/ [facility] mommy and me virtual support group 11:30-1pm Support for mothers and new babies and toddlers [place] childbirth education: Childbirth @cc.org or call [phone] CRISIS: CRISIS HOTLINE [phone], 911 or go to the nearest [facility] [phone] / [facility] [phone] https://www.[facility].org Crisis text line text the word HOME to 390969 [facility] [address] naveen [address] [facility] [address] www.Contour InnovationstoriNintex.Hyperfair Yasmin Mane clinical counseling [address] [address] www.bethbritton.Hyperfair [phone] [facility] psychotherapy Ketty Reyez HOME ATTENDANT SHIPPING SUPPORT CLERK-S [address] [facility] www.Eat In Chef [phone]/ [place] [phone] They all offer virtual. All work with trauma Support groups Online support meetings PSI https://www..net/get-help/agq-ewdyox-rmnqnyg-meetings/ Here are the support groups they offer: Support of parents of 1 to 4 years old children POEM ( Outreach and Encouragement for Moms) offers free support for mothers experiencing depression, anxiety, and other mood and anxiety disorders. Masks are recommended but not required. No pre-registration required. Babies in arms welcome. meetings now take place on the and Saturday of each month Location: [facility] [address] [place] [address] Room 122 (library room) 7-8:00 p.m. When you enter the caodaism parking lot off of [address] the entrance door closest to our meeting room is on the front of the building toward the right. For those who are more comfortable with a virtual platform, POEM offers online support group options several days of the week. To register for an online group or to find out more about POEM, website at: https://mhaohio.org/get-help/efvthaxv-iatjqk-bsksiz/poem-services/ offer a confidential helpline: private Facebook group is called LUAN Hooper Here are the groups they offer: Traumatic childbirth resources: Http://pattch.org/ https://www.hakusuCompassMed.Hyperfair/ Name Location (s) Phone # (s) Services Website [facility] Psychotherapy 35[address] [facility], [facility] [phone]; [address] [phone] In-Person GROUPS INDIVIDUAL THERAPY MATERNAL-INFANT MENTAL HEALTH MEDICATION MANAGEMENT PLAY AND ART THERAPY TELETHERAPY https://www.Promon.Hyperfair/services/ KaterinetonEsperanza NORIEGA? [address] [place], [place] [address] ? [address], [address] [place], [place] [id number] ? ALEXANDRA [address] [place], [place] [address]? Grief Support Groups Individual Grief Counseling Spiritual Care Memorial Events https://pemberton.[facility].org/grief-services [facility] [address] [place], [place] [address]; ; Email: vicki@[employer] Corporation Women's Mental Health; Couples Counseling; Trauma (EMDR); Stress Management; Mood and Anxiety Related Disorders- and much more https://www.elarmcoThinkfuse/ LifeStance Numerous as they have contract providers: access website to find specific providers nearyou Counseling including CBT and EMDR as well as many more modalities; Medication Management; Telehealth and In-Person https://Healthways/ [facility] [address] [place] [address]; [phone] Personal, Family and Group Therapy; Psychological Testing and Diagnosis; Medication Management; Life and Career Coaching; Psychoanalysis; Literacy Testing; Yoga and Meditation https://ProBueno/ [place] [address] [facility] [address], [place] [address] [address] ; [address] [place] [address], [address] [place] [address]; Office # for both sites: Individual and Couples Counseling https://www.ZeroFOX.Hyperfair/paymentinsurance.html OCD & Anxiety [facility] [address] [facility], [address], [place] [address]; Specialize in Cognitive-Behavioral Therapy (CBT) for the treatment of anxiety disorders across the lifespan. TELEHEALTH ONLY. https://ocdandanxietycenteroMarakana.Hyperfair/faqs [facility] [address] [facility] [address]th [place], [address] [place] [address] [facility] [place], [address] [place] [address] [facility] [place], [address] [place] [address] [place], [address] [place], [address] [place] [address] [facility] [place], [address] [place] [address] [place], [place], [id number] Transportation Services To minimize patient barriers, [facility] provides transportation services to patients who qualify. If you are unable to get to your appointment at any of our facilities, please let us know. Need help now? Stop by one of our walk-in clinics to establish behavioral health care. Counseling Indvidual, Group, Couples and Family Counseling and EMDR. Medication Management Case Management benefits applications housing assistance Substance abuse treatment Medication assisted treatment https://www.[facility].org/mental-health/ [facility] OFFICE AT [facility] [address] [place] [address] [facility] OFFICE [address] [place] [address] [facility] OFF[facility] [address] [place] [address] [place] OFFICE (at [facility]) [address] [place] [address] [facility] SYRINGE EXCHANGE PROGRAM & HIV SCREENING [address] [place] [address] MADERA SYRINGE EXCHANGE PROGRAM [address] [place] [address] Behavioral Health Urgent Care: [facility] Counseling Indvidual and Group Medication Management Case Management benefits applications housing assistance Substance abuse treatment Medication assisted treatment Employment Services/ Job Training https://theBlueprint LabsersInfiKnoio.org/ Recovery Resources [address] [place], [place] [address]: P: [phone] [address] [facility], [address], [place] [address] P: [phone] Our services include: Addiction Mental Health Treatment Assessment Psychiatry Medical Care Employment Housing Drug and Alcohol Prevention HIV/AIDS Prevention https://www.recres.org/ [facility] [place] [address] [place] [address] [address] [place] [address] [address] [place], [place] [address] [place] [address] [place] [address] [place] [address] [place] [address] [place] [address] TMS Therapy/ Counseling Psychocological Testing for ADHD Medication Management In-Person/ Telemedicine https://www.Platter.com/patients-depression Memory & Psychological services [address] [place] [address], [place] [address] Neuropsychological Testing For ADHD https://www.memoryandpsych.com/ [facility] - Main Office [address] [place] [id number] [address] Providing acmr-xu-jeva and telehealth services. Adult Case Management Community Education and Prevention Employment Outpatient Treatment - Counseling & Psychotherapy Psychiatric Services http://www.[facility].org/ Ebb And Flow Counseling and Wellness [facility] [address] [place] [address] [facility] [address] [place] [address] Virtual Appointments! Now offering safe and convenient virtual client appointments to anyone in [place]! Individual Therapy Couples/Relationship Therapy Trauma/EMDR Therapy Art Therapy Play Therapy Regional Intermodal Truck Driver Support: Parenting Skills, Parent Child Interaction Therapy, Parent Infant Interaction Therapy Meditation Dietitian/Airline Radio Operator Services Group Therapy Yoga https://www.NOVASYS MEDICAL.Hyperfair/ Sherin Krishnan [phone] Private Practice: Telehealth Only Specializes in EMDR for Trauma None documented in this encounterWay[facility] History of Present illness Narrative* Franco Caal APRN.CNP - 03/09/2024 3:21 PM EDT Subjective HPI Nontoxic-appearing female presents urgent care requesting test. Patient states she is 2 days late on her menses and is concerned about possible . Overall feels well. Slightly nauseous. Denies any pain. No vaginal discharge or leaking of fluids. Denies any fever body aches chills productive cough chest pain shortness of breath pleuritic pain hemoptysis nausea vomiting abdominal pain change in bowel or bladder habits. Past medical history prescription medication use and allergies reviewed. .Patient presents with: Care: test x 2 days late PAST MEDICAL HISTORY Diagnosis Date NEGATIVE MEDICAL HISTORY normal color vision past medical history of age 2 years dermatoid - by her right eye PAST SURGICAL HISTORY Procedure Laterality Date NEXPLANON REMOVAL Left 10/07/2023 PAST SURGICAL HISTORY OF surgery on eye ALLERGIES Patient has no known allergies. MEDICATIONS cloNIDine HCl (CATAPRES) 0.1 mg tablet Take 1 tablet by mouth two times a day. (Patient not taking:Reported on 03/09/2024) FAMILY HISTORY Problem Relation Age of Onset Allergies Father Social History Tobacco Use Smoking status: Never Smokeless tobacco: Never Tobacco comments: no smoking in home Substance Use Topics Alcohol use: No Comment: no alcohol use in home BP 100/64 Pulse 92 Temp 37.1 C (98.8 F) Resp 20 Wt 72.8 kg (160 lb 7.9 oz) LMP 09/30/2023(Approximate) SpO2 98% Review of Systems Constitutional: Negative for chills, fever and malaise/fatigue. HENT: Negative for congestion, ear discharge, ear pain, sinus pain and sore throat. Eyes: Negative for blurred vision, pain, discharge and redness. Respiratory: Negative for cough, hemoptysis, sputum production, shortness of breath, wheezing and stridor. Cardiovascular: Negative for chest pain. Gastrointestinal: Negative for abdominal pain, diarrhea, nausea and vomiting. Musculoskeletal: Negative for myalgias. Skin: Negative for itching and rash. Neurological: Negative for dizziness and headaches. Objective Physical Exam Constitutional: General: She is not in acute distress. Appearance: She is not toxic-appearing. HENT: Head: Normocephalic. Nose: Nose normal. Eyes: Pupils: Pupils are equal, round, and reactive to light. Cardiovascular: Rate and Rhythm: Normal rate. Pulmonary: Effort: Pulmonary effort is normal. No respiratory distress. Abdominal: Tenderness: There is no abdominal tenderness. There is no right CVA tenderness, left CVA tendernessor guarding. Musculoskeletal: Cervical back: Normal range of motion. Skin: General: Skin is warm and dry. Neurological: General: No focal deficit present. Mental Status: She is alert. ASSESSMENT/PLAN: 1. Late menses - ICD9: 626.8, ICD10: N92.6 - HCG QUAL UR B/O test positive in office. Discussed follow-up with DISPOSAL PLANT OPERATOR. Discussed the use of vitamins. Discussed care. Patient was educated on supportive therapies. Patient will followup with primary care provider as needed. Patient was instructed to immediately proceed to emergencyroom for any new, worsening, or symptoms lasting longer than anticipated. The patient's clinical presentation is otherwise unremarkable at this time. Based on exam and clinical finding, the patient is stable for discharge. Plan of care was discussed with patient. Patient verbalizes understanding and agrees to plan of care. This note was generated using Soapbox software. It may contain errors in wording, punctuation, or spelling. Franco Caal APRN.LUIS documented in this encounterWayne Healthcare [facility] Campus06-09-2024 History of Present illness Narrative* Franco Caal APRN.CNP - 01/26/2024 2:23 PM EDT Nontoxic-appearing female presents urgent care accompanied by significant other. Chief complaint abdominal pain vaginal bleeding. Patient states vaginal bleeding started today. Patient states she believes she is currently. With presenting symptoms recommend patient be seen the ED for further evaluation care. Will be seen at [facility]. Franco Caal APRN.CNP documented in this encounterWayne Healthcare Main Campus02-19-2024 Instructions* Patient Instructions* Toby Rome APRN.CNP - 10/07/2023 2:29 PM EST NEXPLANON (progestin implant) Removal Aftercare Instructions Things to know: Once the implant is removed you are at risk for becoming . Discuss with your provider use of another method of control. Bruising and swelling at the site are common in the first 24 hours. Keep the dressing on for 24 hours. After 24 hours, you can remove the dressing and take a shower or bath. You should use latex condoms and /or dental dams to prevent sexually transmitted infections (STIs). You may return to school or work after your visit. Warning Signs: Redness, warmth or drainage from the removal site Fever (>101 degrees) If you develop any of the above warning signs you should be seen by a health care provider as soon as possible. documented in this encounterWayne Healthcare Main Campus02-19-2024 History of Present illness Narrative* Toby Rome APRN.CNP - 10/07/2023 2:10 PM EST Bioinformatics Specialist offered: Patient declines. Zain is a 18 year old who presents for Nexplanon removal for pain and desire for removal. UNIVERSAL PROTOCOL / SAFETY CHECKLIST Procedure to be Performed: Nexplanon Removal Sign In: A Moment of CARE was completed. Personnel directly involved with the procedure wore the appropriate PPE (Personal Protective Equipment). Patient/Surrogate Stated/Verified: PATIENT VERIFIED(optional for EMERGENT procedures): Patient name, Date of , Relevant allergies, and The intended procedure Time Out Communication: Intended patient and procedure match the source documents. Consent documented and matches the intended procedure. Sign Out: SIGN OUT (optional for EMERGENT procedures): No specimen collected. All instruments, equipment, possible retained foreign bodies accounted for. Post-procedure follow-up management communicated and Plan of Care Visit completed when applicable. Raquel Hammond LPN TECHNIQUE: Patient placed in supine position with left arm bent at the elbow and placed over the head. Skin cleansed with betadine. 1.5 mL of 1% lidocaine with epi injected subQ along insertion site. Scalpel used to made a 5mm stab incision superficially at distal end of Nexplanon. Device removed under sterile technique with a small hemostat. Sterile pressure dressing applied. A&P: 18 year old here for Nexplanon removal Nexplanon removed intact without difficulty. The patient was instructed to remove the dressing after 24 hours. Discussed return of fertility. Recommend PNV. Toby Rome APRN.CNP documented in this encounterWayne Healthcare Main Campus02-01-2024 Instructions* Patient Instructions* Miguel Dyer APRN.LUIS - 09/19/2023 3:42 PM EST ASSESSMENT/PLAN: 1. Sore throat - ICD9: 462, ICD10: J02.9 (primary diagnosis) - suspect viral - Group A strep molecular testing negative - Discussed supportive care treatment with fluids, rest and analgesia. - STREP A MOLECULAR (POC) 2. Flu-like symptoms - ICD9: 780.99, ICD10: R68.89 - INFLUENZA A&B MOLECULAR (POC) - COVID NAAT, UPPER RESPIRATORY, ROUTINE 3. Influenza A - ICD9: 487.1, ICD10: J10.1 - OSELTAMIVIR 75 MG CAPSULE - Follow-up with your PCP in 3-5 days if symptoms have not improved or sooner if symptoms worsen - Discussed red flags and need for immediate medical evaluation if any occur. - Discussed supportive care treatment with fluids, rest and analgesia. - Discussed expected course of illness Miguel Dyer APRN.[facility] PATIENT INFO INFLUENZA INTRODUCTION Influenza (commonly called the flu) is a highly contagious illness that can occur in children or adults of any age. It occurs more often in the winter months because people spend more time in close contact with one another. The flu is spread easily from cyotmd-jo-nbdwsf by coughing, sneezing, or touching surfaces. Every year, complications of the flu require more than 200,000 people in the [place] to be hospitalized. Serious illness is more likely in the very young, older adults, women, and people who have certain health problems such as asthma or other forms of lung disease. There have been several widespread flu outbreaks (called pandemics), which led to the deaths of many people worldwide. These outbreaks occurred when new strains of influenza viruses formed (often from pigs or birds) and humans became infected because they had no immunity to these viruses. FLU SYMPTOMS Symptoms of seasonal flu can vary from person to person, but usually include: Fever (temperature higher than 100 F or 37.8 C) Headache and muscle aches Fatigue Cough and sore throat may also be present People with the flu usually have a fever for two to five days. This is different than fever caused by other upper respiratory viruses, which usually resolve after 24 to 48 hours. Some people have cold-like symptoms (runny nose, sore throat) during the flu while others have fever and muscle aches. Flu symptoms usually improve over two to five days, although the illness may last for a week or more. Weakness and fatigue may persist for several weeks Flu complications -- Complications of influenza occur in some people; pneumonia is the most common complication. Pneumonia is a serious infection of the lungs, and is more likely to occur in people over the age of 65, people who live in tank terminal gauger care facilities (nursing homes), and those with other illnesses such as diabetes or conditions affecting the heart or lungs. FLU DIAGNOSIS Influenza is usually diagnosed based on symptoms (fever, cough and muscle aches). Lab testing for influenza is performed in certain cases, such as during a new influenza outbreak in a community. FLU TREATMENT When to seek help -- Most people with the flu recover within one to two weeks without treatment. However, serious complications of the flu can occur. Call your doctor or nurse immediately if: You feel short of breath or have trouble breathing You have pain or pressure in your chest or stomach You have signs of being dehydrated, such as dizziness when standing or not passing urine You feel confused You cannot stop vomiting or you cannot drink enough fluids There are several groups of people who are at increased risk for flu complications. These include women, young children (<5 years of age, and especially <2 years of age), people ?65 years of age, and people with certain diseases such as chronic lung disease (such as asthma), heart disease, diabetes, immunosuppressing conditions (such as HIV infection or transplantation), and some other diseases. If you or your child has flu symptoms and is at increased risk of flu complications, you should call your healthcare provider. Treat symptoms -- Treating the symptoms of influenza can help you to feel better, but will not makethe flu go away faster. Rest until the flu is fully resolved, especially if the illness has been severe Fluids -- Drink enough fluids so that you do not become dehydrated. One way to assistant mechanic if you are drinking enough is to look at the color of your urine. Normally, urine should be light yellow to nearlycolorless. If you are drinking enough, you should pass urine every three to five hours. Acetaminophen (such as Tylenol and other brands) can relieve fever, headache, and muscle aches. Aspirin, and medicines that include aspirin (eg, bismuth subsalicylate; PeptoBismol), are not recommended for children under 18 because aspirin can lead to a serious disease called Hayley syndrome. Cough medicines are not usually helpful; cough usually resolves without treatment. We do not recommend cough or cold medicine for children under age six years. Antiviral treatment -- Antiviral medicines can be used to treat or prevent influenza. When used as a treatment, the medicine does not eliminate flu symptoms, although it can reduce the severity and duration of symptoms by about one day. Not every person with influenza needs an antiviral medicine; the decision is based upon your risk of developing complications of influenza. Antiviral treatment is most effective for seasonal influenza when it is taken within the first 48 hours of flu symptoms. Side effects -- Zanamivir and oseltamivir can cause mild side effects, including nausea and vomiting; zanamivir, which is inhaled, can cause difficulty breathing in some cases. Most people are able to continue the medicine despite the side effects. Antibiotics -- Antibiotics are NOT useful for treating viral illnesses such as influenza. Antibiotics should only used if there is a bacterial complication of the flu such as bacterial pneumonia, earinfection, or sinusitis. Antibiotics can cause side effects and lead to development of antibiotic resistance. documented in this encounterWayne Healthcare Main Campus02-01-2024 History of Present illness Narrative* Miguel Dyer APRN.HOG BUYER - 09/19/2023 3:11 PM EST Subjective Flu Like Symptoms Associated symptoms include congestion, coughing, a fever, headaches, myalgias and a sore throat. Pertinent negatives include no abdominal pain, nausea or vomiting. Zain Rose is a 18 year old female who presents with sore throat, cough, runny nose, fever, headache, body aches for the past 4 days. She has not had any sick contacts. She has been taking cough syrup at home. Review of Systems Constitutional: Positive for fever and malaise/fatigue. HENT: Positive for congestion and sore throat. Negative for ear pain. Respiratory: Positive for cough. Cardiovascular: Negative. Gastrointestinal: Negative for abdominal pain, diarrhea, nausea and vomiting. Musculoskeletal: Positive for myalgias. Neurological: Positive for headaches. BP 110/77 Pulse 103 Temp (!) 38.3 C (101 F) Resp 20 Wt 66.7 kg (147 lb) LMP 09/02/2023 (Approximate) SpO2 99% PAST MEDICAL HISTORY Diagnosis Date NEGATIVE MEDICAL HISTORY normal color vision past medical history of age 2 years dermatoid - by her right eye PAST SURGICAL HISTORY Procedure Laterality Date PAST SURGICAL HISTORY OF surgery on eye ALLERGIES Patient has no known allergies. MEDICATIONS cloNIDine HCl (CATAPRES) 0.1 mg tablet Take 1 tablet by mouth two times a day. JIMBO 0.25-35 mg-mcg per tablet Take 1 tablet by mouth once daily. FAMILY HISTORY Problem Relation Age of Onset Allergies Father Social History Tobacco Use Smoking status: Never Smokeless tobacco: Never Tobacco comments: no smoking in home Substance Use Topics Alcohol use: No Comment: no alcohol use in home Objective Physical Exam Vitals and nursing note reviewed. Constitutional: General: She is not in acute distress. Appearance: Normal appearance. She is not ill-appearing. HENT: Right Ear: Tympanic membrane, ear canal and external ear normal. Left Ear: Tympanic membrane, ear canal and external ear normal. Nose: Congestion and rhinorrhea present. Mouth/Throat: Mouth: Mucous membranes are moist. Pharynx: Uvula midline. No oropharyngeal exudate or posterior oropharyngeal erythema. Cardiovascular: Rate and Rhythm: Normal rate and regular rhythm. Heart sounds: Normal heart sounds. Pulmonary: Effort: Pulmonary effort is normal. No respiratory distress. Breath sounds: Normal breath sounds. No wheezing or rales. Musculoskeletal: Cervical back: Neck supple. Lymphadenopathy: Cervical: No cervical adenopathy. Skin: General: Skin is warm and dry. Findings: No erythema or rash. Neurological: Mental Status: She is alert. ASSESSMENT/PLAN: 1. Sore throat - ICD9: 462, ICD10: J02.9 (primary diagnosis) - suspect viral - Group A strep molecular testing negative - Discussed supportive care treatment with fluids, rest and analgesia. - STREP A MOLECULAR (POC) 2. Flu-like symptoms - ICD9: 780.99, ICD10: R68.89 - INFLUENZA A&B MOLECULAR (POC) - COVID NAAT, UPPER RESPIRATORY, ROUTINE 3. Influenza A - ICD9: 487.1, ICD10: J10.1 - OSELTAMIVIR 75 MG CAPSULE - Follow-up with your PCP in 3-5 days if symptoms have not improved or sooner if symptoms worsen - Discussed red flags and need for immediate medical evaluation if any occur. - Discussed supportive care treatment with fluids, rest and analgesia. - Discussed expected course of illness Miguel Dyer APRN.HOG BUYER [facility] History of Present illness Narrative* Kuldeep Khan MD - 06/21/2023 4:00 PM EDT Zain Rose is an 18-year-old female with diagnosis of attention deficit to disorder who presents to the office today with sleep complaints. Patient was previously prescribed days for treatment of ADHD. Patient discontinued stimulant use in December 2022 when she graduated from high school. Wish touse stimulant medication for control of symptoms. 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 Previously very effective with sleep. Additionally the patient has complaints of bilateral hand pain. 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 This has been going on for approximately 3 months which correlates when she started the job. She has no complaints of neck shoulder or elbow pain. No complaintsof pain in the forearm. She has no complaints of hand stiffness in the morning. ACTIVE PROBLEM LIST Adhd (Attention Deficit Hyperactivity Disorder) PAST MEDICAL HISTORY Diagnosis Date NEGATIVE MEDICAL HISTORY normal color vision past medical history of age 2 years dermatoid - by her right eye PAST SURGICAL HISTORY Procedure Laterality Date PAST SURGICAL HISTORY OF surgery on eye ALLERGIES No Known Allergies 06/21/23 1606 Pulse: 80 Resp: 16 Temp: 37.1 C (98.8 F) TempSrc: Temporal Weight: 61.2 kg (135 lb) GENERAL: alert and active in no apparent distress, nontoxic-appearing HEAD: Normocephalic, atraumatic EYES: Negative for scleral icterus OROPHARYNX:moist mucous membranes, gums and dentition are healthy appearing NECK: Negative for anterior or posterior cervical adenopathy. No masses are present in the suprasternal notch. No supraclavicular adenopathy is present. CARDIOVASCULAR : Regular Rate and Rhythm without murmurs or clicks, well perfused LUNGS: clear to auscultation, excellent air exchange, resonant to percussion, easy respirations without grunting/flaring/retracting. ABDOMEN : Abdomen is soft, nontender, without organomegaly or masses. MUSCULOSKELETAL: No obvious muscle wasting is present in the hands. Patient does have pain bilaterally over the adductor pollicis muscle bilaterally. Palmar and dorsiflexion are within normal limits and bilaterally symmetric EXTREMITIES: No clubbing, cyanosis, or edema. Capillary refill in the right and left hand is 1 second. SKIN : normal color, no jaundice or rash and Normal skin turgor Muscle strength examination Action Right Left Elbow flexion, C5-C6, musculocutaneous 5/5 5/5 Elbow extension, C6-C7, radial 5/5 5/5 Wrist extension, C6-C7, radial 5/5 5/5 Wrist flexion, C7-C8, median 5/5 5/5 Finger flexion, C8, median 5/5 5/5 Finger extension, C8, radial 5/5 5/5 Finger abduction, T1, ulnar 5/5 5/5 0/5: no contraction 1/5: muscle flicker, but no movement 2/5: movement possible, but not against gravity (test the joint in its horizontal plane) 3/5: movement possible against gravity, but not against resistance by the examiner 4/5: movement possible against some resistance by the 5/5: normal strength Sensory: C5: Sensation to light touch intact over lateral shoulder. C6: Sensation to light touch intact over thumb and index finger. C7: Sensation to light touch intact over the long digit C8: Sensation to light touch intact over the ring and small digits. ASSESSMENT/PLAN: 1. 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 Bilateral hand pain - ICD9: 729.5, ICD10: M79.641, M79.642 - CBC + DIFF - CK CREATINE KINASE - SED RATE WESTERGREN - COMP METABOLIC PANEL - C-REACTIVE PROTEIN (CRP) I spent a total of 25 minutes on the date of the service which included preparing to see the patient, [id number] patient care, completing clinical documentation, obtaining and/or reviewing separately obtained history, performing a medically appropriate examination, counseling and educating the pat ient/family/caregiver, and ordering medications, tests, or procedures. Follow-up Kuldeep Khan MD [facility], [facility] documented in this encounterWay[facility]07[facility]19[facility]23 Miscellaneous Notes* Telephone Encounter - Fior Phelan RN - 03/06/2023 12:51 PM EDT Patient notified of results and provider's instructions. Patient verbalizes understanding. Fior Phelan RN * Telephone Encounter - Autumn Chen - 03/06/2023 12:13 PM EDT Left message for patient to return call. Autumn Chen * Telephone Encounter - George Pretty PA - 03/06/2023 12:00 PM EDT Please call patient and let her know urine culture revealed possible contamination. Continue antibiotic if it is helping. Follow-up with PCP if no improvement. documented in this encounterWay[facility]07-17-2023 Instructions* Patient Instructions* Miguel Dyer APRN.CNP - 03/04/2023 4:34 PM EDT ASSESSMENT/PLAN: 1. Urinary frequency - ICD9: 788.41, ICD10: R35.0 acute - UA positive for albert esterase and hematuria - Send urine for culture - Begin treatment with Macrobid 100 mg BID for 5 days - Patient education for prevention given - UA DIP, URINE (POC) - URINE CULTURE - Follow-up with your PCP in 3-5 days if symptoms have not improved or sooner if symptoms worsen - Discussed red flags and need for immediate medical evaluation if any occur. - Discussed supportive care treatment with fluids, rest and analgesia. - Discussed expected course of illness Miguel Dyer APRN.[employer] BU[employer]ER [facility] PATIENT INFO BLADDER INFECTION OVERVIEW Bladder infections are one of the most common infections, causing symptoms of burning with urination and needing to urinate frequently. A bladder infection is a type of urinary tract infection (UTI).Bladder infections are more common is women than men. Most women have an uncomplicated bladder infection that is easily treated with a short course of antibiotics. In men, bladder infections may alsoaffect the prostate gland, and a longer course of treatment may be needed. BLADDER INFECTION CAUSES The urinary tract includes the kidneys (which filter urine), ureters (the tube that carries urine from the kidneys to the bladder), the bladder (which stores urine), and urethra (the tube that carries urine out of the bladder). Bacteria do not normally live in these areas. However, bacteria normally live close to the urethra in women and men who are not circumcised. Bladder infections occur when bacteria travel up the urethra into the bladder. Factors that increase the risk of developing a bladder infection include: Vaginal sex Use of spermicides History of past bladder infections Diabetes In men, not being circumcised or having anal sex increase the risk of bladder infections. BLADDER INFECTION SYMPTOMS The typical symptoms of a bladder infection include: Pain or burning when urinating Frequent need to urinate Urgent need to urinate Blood in the urine Fever, back pain, nausea, or vomiting are not common symptoms of a bladder infection, but can occurin people with a kidney infection (pyelonephritis). If you have these symptoms, you should call your doctor or nurse immediately. Is it a bladder infection or something else? -- Burning with urination can also occur in people with vaginitis (eg, yeast infection) or urethritis (inflammation of the urethra). For this reason, it is important to call your healthcare provider before assuming you have a bladder infection. BLADDER INFECTION DIAGNOSIS Simple bladder infections are usually diagnosed based upon your symptoms alone. However, most patients, especially those who have bladder infection symptoms for the first time, should see a healthcare provider for urine testing. Urine culture -- A urine culture is a test that uses a sample of urine to try and grow bacteria in a laboratory. It usually requires about 48 hours to get results. However, a urine culture is not always required to diagnose a bladder infection. Urine culture is often recommended if: You have never had a bladder infection before You have symptoms that are not typical for bladder infection You have had resistant bladder infections before You have frequent bladder infections You do not begin to feel better within 24 to 48 hours after starting antibiotics You are BLADDER INFECTION TREATMENT Bladder infection -- In young, healthy adolescents and adults with a bladder infection, the usual treatment includes a three to seven day course of antibiotics. The typical drugs chosen are: trimethoprim-sulfamethoxazole (Bactrim ), nitrofurantoin (Macrobid ), ciprofloxacin (Cipro ) or levofloxacin (Levaquin ). In men, the infection may involve your prostate gland and treatment is usually given for at least 7days. Your symptoms should begin to resolve within one day after starting treatment. It is important to take the full course of antibiotics to completely eliminate the infection. If your symptoms persist for more than two or three days after starting treatment, call your healthcare provider. If needed, you can take a prescription medication that numbs the bladder and urethra (phenazopyridine [Pyridium ]) to reduce the burning pain of some UTIs. A similar medication is available without aprescription (eg, Uristat). Both medications change the color of the urine (usually blue or orange)and can interfere with laboratory testing. You should not take these medications for more than 48 hours due to the risk of side effects. These medications do not treat the infection and must be takenalong with an antibiotic. Some providers recommend drinking more fluids while treating bladder infections to help flush bacteria from the bladder. Others believe that drinking more fluids may dilute the antibiotic in the bladder and make the medication less effective. No studies have been performed to address this issue. There are also no good studies on the effectiveness of cranberry juice for treating a bladder infection; we do not recommend using cranberry juice to treat bladder infections. Follow-up care -- Follow-up testing is not needed in healthy, young men or women with a bladder infection if symptoms resolve. women are usually asked to have a repeat urine culture one to two weeks after treatment has ended to make sure the bacteria are no longer in the urine. RECURRENT BLADDER INFECTIONS Bladder infections versus other causes -- Some adults, especially women, develop bladder infectionsfrequently. In this case, it is important to confirm that your symptoms (eg, pain or burning, frequency, and urgency) are caused by a bladder infection. Symptoms are usually similar from one infection to another. The best way to confirm an infection is to have a urine culture. If your urine culture is negative for infection, other causes of pain, burning, and frequency should be investigated. There is no reason to take antibiotics if your urine culture is negative. Need for further testing -- If you continue to develop bladder infections, you may require further testing. If you continue to notice blood in your urine after your bladder infection has cleared, you should have further testing. Preventing recurrent UTIs -- Women with recurrent urinary tract infections may be advised to take steps to prevent bladder infections, including one or more of the following: Changes in control -- Women who develop frequent bladder infections and use spermicides, particularly those who also use a diaphragm, may be encouraged to use an alternate method of control. Cranberry products -- Taking cranberry juice or cranberry tablets has been promoted as one way to help prevent frequent bladder infections. However, this has not been proven. Drinking more fluid and urinating after intercourse -- Although studies have not proven that drinking more fluids or urinating soon after intercourse can prevent infection, some healthcare providers recommend these measures since they are not harmful. Drinking more fluid may help to wash out bacteria that enter the bladder. Postmenopausal women -- Postmenopausal women who develop recurrent bladder infections may benefit from using vaginal estrogen. Vaginal estrogen is available in a flexible ring that is worn in the vagina for three months (eg, Estring ), a small tablet (Vagifem ), or a cream (eg, Premarin or Estrace ). Vaginal estrogen is discussed in more detail in a separate topic review. Antibiotics -- A preventive antibiotic treatment may be recommended if you repeatedly develop bladder infections and have not responded to other preventive measures. Antibiotics are highly effective in preventing recurrent bladder infections and can be taken in several different ways. Preventive antibiotic -- You can take a low dose of an antibiotic once per day or three times per week for six months to several years. Antibiotics following intercourse -- In women who develop urinary tract infections after sex, taking a single low dose antibiotic after intercourse can help to prevent bladder infections. Self-treatment -- A plan to begin antibiotics at the first sign of a bladder infection may be recommended in some situations. Before starting this regimen, it is important that you have had testing (urine cultures) to confirm that your symptoms are caused by a bladder infection; some people have symptoms of a bladder infection but do not actually have an infection. documented in this encounterWay[facility]07-17-[facility]23 History of Present illness Narrative* Miguel Dyer, ULISES.HOG BUYER - 03/04/2023 4:23 PM EDT Subjective HPI Zain Rose is a 18 year old female who presents with one week of urinary burning and frequency. She has had UTI in the past and these are her typical symptoms. She denies fever, back pain or abdominal pain. She has not taken any medication for this at home. She denies concern for , has Nexplanon. LMP was 01/02 prior to nexplanon, has not had periods since. Review of Systems Constitutional: Negative for chills and fever. Respiratory: Negative. Cardiovascular: Negative. Gastrointestinal: Negative for abdominal pain, nausea and vomiting. Genitourinary: Positive for dysuria and frequency. Negative for hematuria. Musculoskeletal: Negative for back pain. 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 MEDICATIONS JIMBO 0.25-35 mg-mcg per tablet Take 1 tablet by mouth once daily. cloNIDine HCl (CATAPRES) 0.2 mg tablet Take 1 tablet by mouth daily at bedtime. dextroamphetamine-amphetamine (MYDAYIS) 12.5 mg CT24 Take 1 capsule by mouth once daily for 90 days. FAMILY HISTORY Problem Relation Age of Onset Allergies Father Social History Tobacco Use Smoking status: Never Smokeless tobacco: Never Tobacco comments: no smoking in home Substance Use Topics Alcohol use: No Comment: no alcohol use in home Objective Physical Exam Vitals and nursing note reviewed. Constitutional: General: She is not in acute distress. Appearance: Normal appearance. She is not ill-appearing. Cardiovascular: Rate and Rhythm: Normal rate and regular rhythm. Heart sounds: Normal heart sounds. Pulmonary: Effort: Pulmonary effort is normal. No respiratory distress. Breath sounds: Normal breath sounds. No wheezing or rales. Abdominal: General: There is no distension. Palpations: Abdomen is soft. There is no mass. Tenderness: There is no abdominal tenderness. There is no right CVA tenderness, left CVA tendernessor guarding. Skin: General: Skin is warm and dry. Neurological: Mental Status: She is alert. ASSESSMENT/PLAN: 1. Urinary frequency - ICD9: 788.41, ICD10: R35.0 acute - UA positive for albert esterase and hematuria - Send urine for culture - Begin treatment with Macrobid 100 mg BID for 5 days - Patient education for prevention given - UA DIP, URINE (POC) - URINE CULTURE - Follow-up with your PCP in 3-5 days if symptoms have not improved or sooner if symptoms worsen - Discussed red flags and need for immediate medical evaluation if any occur. - Discussed supportive care treatment with fluids, rest and analgesia. - Discussed expected course of illness Miguel Dyer APRN.HOG BUYER documented in this encounterWay[facility]04-13-2023 Miscellaneous Notes* Telephone Encounter - Frandy El MD - 11/29/2022 3:09 PM EDT Urine culture grew bacteria which could represent a urinary tract infection. She also grew urogenital yeny. I spoke with patient's mother. She is continue to have urinary symptoms. Nitrofurantoin prescription sent to pharmacy. Follow-up with pediatrics if symptoms persist. documented in this encounterWay[facility]04-11-2023 History of Present illness Narrative* Franco Caal APRN.HOG BUYER - 11/27/2022 7:16 PM EDT Subjective HPI Nontoxic-appearing female presents urgent care accompanied by mother. Chief complaint urgency frequency and burning with urination. Duration of symptoms 4 days. Associated symptoms listed above. Denies history of UTIs. Has not used any OTC medications. Denies history of BV yeast infections. Denies any fever body aches chills nausea vomiting abdominal pain back pain vaginal discharge rashes concerns for STDs. Last menstrual period November 05, 2022. Past medical history prescription medication use allergies reviewed .Patient presents with: UTI: Pt presented with parent, reported frequency, burning x4 days. 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 MEDICATIONS JIMBO 0.25-35 mg-mcg per tablet Take 1 tablet by mouth once daily. cloNIDine HCl (CATAPRES) 0.2 mg tablet Take 1 tablet by mouth daily at bedtime. dextroamphetamine-amphetamine (MYDAYIS) 12.5 mg CT24 Take 1 capsule by mouth once daily for 90 days. FAMILY HISTORY Problem Relation Age of Onset Allergies Father Social History Tobacco Use Smoking status: Never Smokeless tobacco: Never Tobacco comments: no smoking in home Substance Use Topics Alcohol use: No Comment: no alcohol use in home BP 98/60 Pulse 90 Temp 36.9 C (98.4 F) (Tympanic) Resp 18 Wt 51.1 kg (112 lb 9.6 oz) LMP 11/06/2022 SpO2 99% Review of Systems Constitutional: Negative for chills, fever and malaise/fatigue. HENT: Negative for congestion, ear discharge, ear pain, sinus pain and sore throat. Eyes: Negative for blurred vision, pain, discharge and redness. Respiratory: Negative for cough, hemoptysis, sputum production, shortness of breath, wheezing and stridor. Cardiovascular: Negative for chest pain. Gastrointestinal: Negative for abdominal pain, diarrhea, nausea and vomiting. Genitourinary: Positive for dysuria, frequency and urgency. Musculoskeletal: Negative for myalgias. Skin: Negative for itching and rash. Neurological: Negative for dizziness and headaches. Objective Physical Exam Constitutional: General: She is not in acute distress. Appearance: She is not diaphoretic. HENT: Head: Normocephalic. Mouth/Throat: Mouth: Mucous membranes are moist. Pharynx: Oropharynx is clear. No oropharyngeal exudate or posterior oropharyngeal erythema. Eyes: Conjunctiva/sclera: Conjunctivae normal. Pupils: Pupils are equal, round, and reactive to light. Cardiovascular: Rate and Rhythm: Normal rate and regular rhythm. Heart sounds: Normal heart sounds. Pulmonary: Effort: Pulmonary effort is normal. No tachypnea, accessory muscle usage or respiratory distress. Breath sounds: Normal breath sounds. No stridor. No wheezing, rhonchi or rales. Abdominal: Palpations: Abdomen is soft. Tenderness: There is no abdominal tenderness. There is no right CVA tenderness, left CVA tenderness, guarding or rebound. Musculoskeletal: Cervical back: Normal range of motion. Skin: General: Skin is warm and dry. Neurological: Mental Status: She is alert and oriented to person, place, and time. ASSESSMENT/PLAN: 1. Urinary frequency - ICD9: 788.41, ICD10: R35.0 - UA DIP, URINE (POC) Trace amount of leukocytes and blood noted on urine dip. No antibiotics at today's visit. Treat conservatively at this time. Follow-up with PCP as needed. Be seen urgent care or ED for any new worsening or symptoms lasting longer anticipated. Supportive therapies discussed. Mother verbalized understand agrees with plan of care Franco Caal APRN.HOG BUYER documented in this encounterWay[facility]* Diagnosis Urinary frequency- Primary [facility] Diagnosis Urinary frequency- Primary [facility]* Diagnosis Sleep initiation disorder- Primary Insomnia, unspecified Bilateral hand pain Pain in limb [facility]* Diagnosis Sore throat- Primary Acute pharyngitis Flu-like symptoms Other general symptoms Influenza A Influenza with other respiratory manifestations [facility]* Diagnosis Encounter for Nexplanon removal- Primary Surveillance of previously prescribed implantable subdermal contraceptive documented in this [facility] Diagnosis Procedure not carried out- Primary Procedure not carried out for other reasons [facility] Diagnosis Late menses- Primary Other disorder of menstruation and other abnormal bleeding from female genital tract [facility] Diagnosis Encounter for supervision of normal first in first trimester- Primary Supervision of normal first 5 weeks gestation of state, incidental with uncertain dates in first trimester Family history of deafness Family history of deafness or hearing loss Nausea and vomiting during Heartburn during in first trimester Anxiety during Attention deficit hyperactivity disorder (ADHD), combined type [facility] Diagnosis URI, acute- Primary Acute upper respiratory infections of unspecified site documented in this encounter [facility] note* Diagnosis Encounter for test, result positive- Primary examination or test, positive result documented in this encounter [facility] note* Diagnosis with uncertain dates in first trimester documented in this encounter [facility] note* Diagnosis Rash- Primary Rash and other nonspecific skin eruption documented in this encounter [facility] note* Diagnosis Encounter for supervision of normal first in first trimester- Primary Supervision of normal first 12 weeks gestation of state, incidental with uncertain dates in first trimester Anxiety during Hyperemesis gravidarum Mild hyperemesis gravidarum, unspecified as to episode of care Heartburn during in second trimester documented in this encounter [facility] note* Diagnosis Encounter for supervision of normal first in second trimester- Primary Supervision of normal first 13 weeks gestation of state, incidental Hyperemesis gravidarum Mild hyperemesis gravidarum, unspecified as to episode of care Encounter for screening for nuchal translucency documented in this encounter [facility] note* Diagnosis Encounter for screening for malformation using ultrasound- Primary 13 weeks gestation of state, incidental Encounter for (NT) nuchal translucency scan Other specified screening documented in this encounter [facility] note* Diagnosis Nausea and vomiting during - Primary [facility] Diagnosis Encounter for supervision of normal first in second trimester- Primary Supervision of normal first 14 weeks gestation of state, incidental Depression affecting in second trimester, antepartum Anxiety during Hyperemesis gravidarum Mild hyperemesis gravidarum, unspecified as to episode of care * Assessment & Plan Note - Toby Rome APRN.HOG BU[employer]ER - 05/22/2024 3:30 PM EDT Associated Problem(s): Anxiety during May 22, 2024 Initial Office Visit from 03/27/2024 in OB/Gynecology Routine Office Visit from 05/22/2024 in OB/Gynecology 03/24/2024 03/27/2024 05/22/2024 [id number] Depression Screening Over the past 2 weeks have you felt down, depressed, or hopeless? Negative Negative Positive - Further Testing Indicated Over the past two weeks, have you felt little interest or pleasure in doing things? Negative Negative Positive - Further Testing Indicated Kechi Depression Scale: In the Past 7 Days I have been able to laugh and see the funny side of things. -- -- As much as I always could I have looked forward with enjoyment to things. -- -- Rather less than I used to I have blamed myself unnecessarily when things went wrong. -- -- Yes, some of the time I have been anxious or worried for no good reason. -- -- Yes, sometimes I have felt scared or panicky for no good reason. -- -- Yes, sometimes Things have been getting on top of me. -- -- Yes, most of the time I haven't been able to cope at all I have been so unhappy that I have had difficulty sleeping. -- -- Yes, most of the time I have felt sad or miserable. -- -- Yes, quite often I have been so unhappy that I have been crying. -- -- Only occasionally The thought of harming myself has occurred to me. -- -- Hardly ever Kechi Depression Scale Total -- -- 17 Anxiety Pre-Screening Questions - Questions reference in the last two weeks Feeling nervous, anxious or on edge 1-Several days 1-Several days 3-Nearly every day Not being able to stop or control worrying 1-Several days 1-Several days 3- Nearly every day Anxiety ([facility]) Pre-Screening Total 2 2 6 Anxiety ([facility]) Full Screening - Questions reference in the last two weeks Worrying too much about different things -- -- 3-Nearly every day Trouble relaxing -- -- 2-More than half the days Being so restless that it is hard to sit still -- -- 2-More than half the days Becoming easily annoyed or irritable -- -- 3-Nearly every day Feeling afraid, as if something awful might happen -- -- 3-Nearly every day Anxiety ([facility]) Full Screening Total -- -- May 22, 2024 Discussed depression and anxiety impact on and baby's health, as well as maternal health.Strongly recommend counseling or medication as very high risk for depression, anxiety, mood disorders. Zain declines medication at this time but willing to trial counseling. + for thoughts of self harm (reported hardly ever). No active plan. Partner emotionally supportive. Women's Behavioral Health consult placed. Discussed alternative options such as counseling center. Crisis line and mental health resources provided. Reports mental health is improving with Zofran pump and feelingphysically better. LYNN Fernandez APRN.CNP * Assessment & Plan Note - Toby Rome APRN.CNP - 05/22/2024 3:29 PM EDT Associated Problem(s): Depression affecting in second trimester, antepartum May 22, 2024 Discussed depression and anxiety impact on and baby's health, as well as maternal health.Strongly recommend counseling or medication as very high risk for depression, anxiety, mood disorders. Zain declines medication at this time but willing to trial counseling. + for thoughts of self harm (reported hardly ever). No active plan. Partner emotionally supportive. Women's Behavioral Health consult placed. Discussed alternative options such as counseling center. Crisis line and mental health resources provided. Reports mental health is improving with Zofran pump and feelingphysically better. Toby Rome APRN.CNP [facility] Diagnosis Encounter for supervision of normal first in second trimester- Primary Supervision of normal first 14 weeks gestation of state, incidental Depression affecting in second trimester, antepartum Anxiety during Hyperemesis gravidarum Mild hyperemesis gravidarum, unspecified as to episode of care Urinary frequency- Primary Burning with urination Dysuria [facility] Diagnosis Encounter for supervision of normal first in second trimester- Primary Supervision of normal first 14 weeks gestation of state, incidental Depression affecting in second trimester, antepartum Anxiety during Hyperemesis gravidarum Mild hyperemesis gravidarum, unspecified as to episode of care Supervision of high risk in second trimester- Primary Unspecified high-risk 16 weeks gestation of state, incidental Hyperemesis gravidarum Mild hyperemesis gravidarum, unspecified as to episode of care Heartburn during in second trimester Depression affecting in second trimester, antepartum Anxiety during documented in this encounter [facility] note* Diagnosis Encounter for supervision of normal first in second trimester- Primary Supervision of normal first 14 weeks gestation of state, incidental Depression affecting in second trimester, antepartum Anxiety during Hyperemesis gravidarum Mild hyperemesis gravidarum, unspecified as to episode of care Supervision of high risk in second trimester- Primary Unspecified high-risk Heartburn during in second trimester 20 weeks gestation of state, incidental Cervical shortening, second trimester documented in this encounter [facility] note* Diagnosis Encounter for supervision of normal first in second trimester- Primary Supervision of normal first 14 weeks gestation of state, incidental Depression affecting in second trimester, antepartum Anxiety during Hyperemesis gravidarum Mild hyperemesis gravidarum, unspecified as to episode of care Encounter for anatomic survey- Primary 20 weeks gestation of state, incidental [facility] Diagnosis Encounter for supervision of normal first in second trimester- Primary Supervision of normal first 14 weeks gestation of state, incidental Depression affecting in second trimester, antepartum Anxiety during Hyperemesis gravidarum Mild hyperemesis gravidarum, unspecified as to episode of care Cervical shortening, second trimester- Primary 22 weeks gestation of state, incidental [facility] Diagnosis Encounter for supervision of normal first in second trimester- Primary Supervision of normal first 14 weeks gestation of state, incidental Depression affecting in second trimester, antepartum Anxiety during Hyperemesis gravidarum Mild hyperemesis gravidarum, unspecified as to episode of care Supervision of high risk in second trimester- Primary Unspecified high-risk Heartburn during in second trimester Cervical shortening, second trimester Hyperemesis gravidarum Mild hyperemesis gravidarum, unspecified as to episode of care 22 weeks gestation of state, incidental Cervix, short (affecting ) Cervical shortening, unspecified as to episode of care or not applicable documented in this encounter [facility] note* Diagnosis Encounter for supervision of normal first in second trimester- Primary Supervision of normal first 14 weeks gestation of state, incidental Depression affecting in second trimester, antepartum Anxiety during Hyperemesis gravidarum Mild hyperemesis gravidarum, unspecified as to episode of care Supervision of high risk in second trimester- Primary Unspecified high-risk 24 weeks gestation of state, incidental Heartburn during in second trimester Cervix, short (affecting ) Cervical shortening, unspecified as to episode of care or not applicable documented in this encounter [facility] note* Diagnosis Encounter for supervision of normal first in second trimester- Primary Supervision of normal first 14 weeks gestation of state, incidental Depression affecting in second trimester, antepartum Anxiety during Hyperemesis gravidarum Mild hyperemesis gravidarum, unspecified as to episode of care Supervision of high risk in second trimester- Primary Unspecified high-risk 28 weeks gestation of state, incidental Threatened premature labor, antepartum documented in this encounter [facility] note* Diagnosis Encounter for supervision of normal first in second trimester- Primary Supervision of normal first 14 weeks gestation of state, incidental Depression affecting in second trimester, antepartum Anxiety during Hyperemesis gravidarum Mild hyperemesis gravidarum, unspecified as to episode of care contractions- Primary Threatened premature labor, antepartum Family history of deafness Family history of deafness or hearing loss Cervix, short (affecting ) Cervical shortening, unspecified as to episode of care or not applicable ADHD (attention deficit hyperactivity disorder) Attention deficit disorder with hyperactivity Heartburn during in third trimester Anxiety and depression Dysthymic disorder Prematurity of fetus Other infants, unspecified (weight) Threatened premature labor, antepartum- Primary documented in this encounter [facility] note* Diagnosis Encounter for supervision of normal first in second trimester- Primary Supervision of normal first 14 weeks gestation of state, incidental Depression affecting in second trimester, antepartum Anxiety during Hyperemesis gravidarum Mild hyperemesis gravidarum, unspecified as to episode of care contractions- Primary Threatened premature labor, antepartum Family history of deafness Family history of deafness or hearing loss Cervix, short (affecting ) Cervical shortening, unspecified as to episode of care or not applicable ADHD (attention deficit hyperactivity disorder) Attention deficit disorder with hyperactivity Heartburn during in third trimester Anxiety and depression Dysthymic disorder Prematurity of fetus Other infants, unspecified (weight) Supervision of high risk in third trimester- Primary Unspecified high-risk Threatened premature labor, antepartum Cervix, short (affecting ) Cervical shortening, unspecified as to episode of care or not applicable 30 weeks gestation of state, incidental Rib pain Chest pain, unspecified * Assessment & Plan Note - Belle Carrillo MD - 09/08/2024 3:37 PM EST Associated Problem(s): Cervix, short (affecting ) Orders: URINE OB DIP B/O documented in this encounter [facility] note* Diagnosis Encounter for supervision of normal first in second trimester- Primary Supervision of normal first 14 weeks gestation of state, incidental Depression affecting in second trimester, antepartum Anxiety during Hyperemesis gravidarum Mild hyperemesis gravidarum, unspecified as to episode of care contractions- Primary Threatened premature labor, antepartum Family history of deafness Family history of deafness or hearing loss Cervix, short (affecting ) Cervical shortening, unspecified as to episode of care or not applicable ADHD (attention deficit hyperactivity disorder) Attention deficit disorder with hyperactivity Heartburn during in third trimester Anxiety and depression Dysthymic disorder Prematurity of fetus Other infants, unspecified (weight) Supervision of high risk in third trimester- Primary Unspecified high-risk Threatened premature labor, antepartum Cervix, short (affecting ) Cervical shortening, unspecified as to episode of care or not applicable 30 weeks gestation of state, incidental Rib pain Chest pain, unspecified Nausea and vomiting in - Primary Unspecified vomiting of , unspecified as to episode of care Cervix, short (affecting ) Cervical shortening, unspecified as to episode of care or not applicable Supervision of high risk in third trimester Unspecified high-risk 31 weeks gestation of state, incidental * Assessment & Plan Note - Thompson Gonzalez MD - 09/15/2024 4:38 PM EST Associated Problem(s): Cervix, short (affecting ) Orders: URINE OB DIP B/O continue prometrium documented in this encounter [facility] note* Diagnosis Encounter for supervision of normal first in second trimester- Primary Supervision of normal first 14 weeks gestation of state, incidental Depression affecting in second trimester, antepartum Anxiety during Hyperemesis gravidarum Mild hyperemesis gravidarum, unspecified as to episode of care contractions- Primary Threatened premature labor, antepartum Family history of deafness Family history of deafness or hearing loss Cervix, short (affecting ) Cervical shortening, unspecified as to episode of care or not applicable ADHD (attention deficit hyperactivity disorder) Attention deficit disorder with hyperactivity Heartburn during in third trimester Anxiety and depression Dysthymic disorder Prematurity of fetus Other infants, unspecified (weight) Supervision of high risk in third trimester- Primary Unspecified high-risk Threatened premature labor, antepartum Cervix, short (affecting ) Cervical shortening, unspecified as to episode of care or not applicable 30 weeks gestation of state, incidental Rib pain Chest pain, unspecified Nausea and vomiting in - Primary Unspecified vomiting of , unspecified as to episode of care Cervix, short (affecting ) Cervical shortening, unspecified as to episode of care or not applicable Supervision of high risk in third trimester Unspecified high-risk 31 weeks gestation of state, incidental Supervision of high risk in third trimester- Primary Unspecified high-risk 32 weeks gestation of state, incidental Cervix, short (affecting ) Cervical shortening, unspecified as to episode of care or not applicable Threatened premature labor, antepartum Anxiety and depression Dysthymic disorder Dysuria documented in this encounter [facility] note* Diagnosis Encounter for supervision of normal first in second trimester- Primary Supervision of normal first 14 weeks gestation of state, incidental Depression affecting in second trimester, antepartum Anxiety during Hyperemesis gravidarum Mild hyperemesis gravidarum, unspecified as to episode of care contractions- Primary Threatened premature labor, antepartum Family history of deafness Family history of deafness or hearing loss Cervix, short (affecting ) Cervical shortening, unspecified as to episode of care or not applicable ADHD (attention deficit hyperactivity disorder) Attention deficit disorder with hyperactivity Heartburn during in third trimester Anxiety and depression Dysthymic disorder Prematurity of fetus Other infants, unspecified (weight) Supervision of high risk in third trimester- Primary Unspecified high-risk Threatened premature labor, antepartum Cervix, short (affecting ) Cervical shortening, unspecified as to episode of care or not applicable 30 weeks gestation of state, incidental Rib pain Chest pain, unspecified Nausea and vomiting in - Primary Unspecified vomiting of , unspecified as to episode of care Cervix, short (affecting ) Cervical shortening, unspecified as to episode of care or not applicable Supervision of high risk in third trimester Unspecified high-risk 31 weeks gestation of state, incidental Rib pain- Primary Chest pain, unspecified 30 weeks gestation of state, incidental Supervision of high risk in third trimester Unspecified high-risk documented in this encounter [facility] note* Diagnosis Encounter for supervision of normal first in second trimester- Primary Supervision of normal first 14 weeks gestation of state, incidental Depression affecting in second trimester, antepartum Anxiety during Hyperemesis gravidarum Mild hyperemesis gravidarum, unspecified as to episode of care contractions- Primary Threatened premature labor, antepartum Family history of deafness Family history of deafness or hearing loss Cervix, short (affecting ) Cervical shortening, unspecified as to episode of care or not applicable ADHD (attention deficit hyperactivity disorder) Attention deficit disorder with hyperactivity Heartburn during in third trimester Anxiety and depression Dysthymic disorder Prematurity of fetus Other infants, unspecified (weight) Supervision of high risk in third trimester- Primary Unspecified high-risk Threatened premature labor, antepartum Cervix, short (affecting ) Cervical shortening, unspecified as to episode of care or not applicable 30 weeks gestation of state, incidental Rib pain Chest pain, unspecified Nausea and vomiting in - Primary Unspecified vomiting of , unspecified as to episode of care Cervix, short (affecting ) Cervical shortening, unspecified as to episode of care or not applicable Supervision of high risk in third trimester Unspecified high-risk 31 weeks gestation of state, incidental Supervision of high risk in third trimester- Primary Unspecified high-risk Anxiety and depression Dysthymic disorder Cervix, short (affecting ) Cervical shortening, unspecified as to episode of care or not applicable 33 weeks gestation of state, incidental documented in this encounter [facility] note* Diagnosis Encounter for supervision of normal first in second trimester- Primary Supervision of normal first 14 weeks gestation of state, incidental Depression affecting in second trimester, antepartum Anxiety during Hyperemesis gravidarum Mild hyperemesis gravidarum, unspecified as to episode of care contractions- Primary Threatened premature labor, antepartum Family history of deafness Family history of deafness or hearing loss Cervix, short (affecting ) Cervical shortening, unspecified as to episode of care or not applicable ADHD (attention deficit hyperactivity disorder) Attention deficit disorder with hyperactivity Heartburn during in third trimester Anxiety and depression Dysthymic disorder Prematurity of fetus Other infants, unspecified (weight) Supervision of high risk in third trimester- Primary Unspecified high-risk Threatened premature labor, antepartum Cervix, short (affecting ) Cervical shortening, unspecified as to episode of care or not applicable 30 weeks gestation of state, incidental Rib pain Chest pain, unspecified Nausea and vomiting in - Primary Unspecified vomiting of , unspecified as to episode of care Cervix, short (affecting ) Cervical shortening, unspecified as to episode of care or not applicable Supervision of high risk in third trimester Unspecified high-risk 31 weeks gestation of state, incidental Pyelonephritis affecting in third trimester- Primary [facility] Encounter for supervision of normal first in second trimester- Primary Supervision of normal first 14 weeks gestation of state, incidental Depression affecting in second trimester, antepartum Anxiety during Hyperemesis gravidarum Mild hyperemesis gravidarum, unspecified as to episode of care contractions- Primary Threatened premature labor, antepartum Family history of deafness Family history of deafness or hearing loss Cervix, short (affecting ) Cervical shortening, unspecified as to episode of care or not applicable ADHD (attention deficit hyperactivity disorder) Attention deficit disorder with hyperactivity Heartburn during in third trimester Anxiety and depression Dysthymic disorder Prematurity of fetus Other infants, unspecified (weight) Supervision of high risk in third trimester- Primary Unspecified high-risk Threatened premature labor, antepartum Cervix, short (affecting ) Cervical shortening, unspecified as to episode of care or not applicable 30 weeks gestation of state, incidental Rib pain Chest pain, unspecified Nausea and vomiting in - Primary Unspecified vomiting of , unspecified as to episode of care Cervix, short (affecting ) Cervical shortening, unspecified as to episode of care or not applicable Supervision of high risk in third trimester Unspecified high-risk 31 weeks gestation of state, incidental 35 weeks gestation of - Primary state, incidental Pyelonephritis affecting in third trimester Supervision of high risk in third trimester Unspecified high-risk Cervix, short (affecting ) Cervical shortening, unspecified as to episode of care or not applicable documented in this encounter [facility] note* Diagnosis Encounter for supervision of normal first in second trimester- Primary Supervision of normal first 14 weeks gestation of state, incidental Depression affecting in second trimester, antepartum Anxiety during Hyperemesis gravidarum Mild hyperemesis gravidarum, unspecified as to episode of care contractions- Primary Threatened premature labor, antepartum Family history of deafness Family history of deafness or hearing loss Cervix, short (affecting ) Cervical shortening, unspecified as to episode of care or not applicable ADHD (attention deficit hyperactivity disorder) Attention deficit disorder with hyperactivity Heartburn during in third trimester Anxiety and depression Dysthymic disorder Prematurity of fetus Other infants, unspecified (weight) Supervision of high risk in third trimester- Primary Unspecified high-risk Threatened premature labor, antepartum Cervix, short (affecting ) Cervical shortening, unspecified as to episode of care or not applicable 30 weeks gestation of state, incidental Rib pain Chest pain, unspecified Nausea and vomiting in - Primary Unspecified vomiting of , unspecified as to episode of care Cervix, short (affecting ) Cervical shortening, unspecified as to episode of care or not applicable Supervision of high risk in third trimester Unspecified high-risk 31 weeks gestation of state, incidental Nausea and vomiting in Unspecified vomiting of , unspecified as to episode of care [facility] Diagnosis Encounter for supervision of normal first in second trimester- Primary Supervision of normal first 14 weeks gestation of state, incidental Depression affecting in second trimester, antepartum Anxiety during Hyperemesis gravidarum Mild hyperemesis gravidarum, unspecified as to episode of care contractions- Primary Threatened premature labor, antepartum Family history of deafness Family history of deafness or hearing loss Cervix, short (affecting ) Cervical shortening, unspecified as to episode of care or not applicable ADHD (attention deficit hyperactivity disorder) Attention deficit disorder with hyperactivity Heartburn during in third trimester Anxiety and depression Dysthymic disorder Prematurity of fetus Other infants, unspecified (weight) Supervision of high risk in third trimester- Primary Unspecified high-risk Threatened premature labor, antepartum Cervix, short (affecting ) Cervical shortening, unspecified as to episode of care or not applicable 30 weeks gestation of state, incidental Rib pain Chest pain, unspecified Nausea and vomiting in - Primary Unspecified vomiting of , unspecified as to episode of care Cervix, short (affecting ) Cervical shortening, unspecified as to episode of care or not applicable Supervision of high risk in third trimester Unspecified high-risk 31 weeks gestation of state, incidental Supervision of high risk in third trimester- Primary Unspecified high-risk 36 weeks gestation of state, incidental Threatened labor, third trimester * Assessment & Plan Note - Belle Carrillo MD - 10/22/2024 2:10 PM EST Associated Problem(s): Supervision of high risk in third trimester Orders: URINE OB DIP B/O * Assessment & Plan Note - Belle Carrillo MD - 10/22/2024 2:10 PM EST Associated Problem(s): Threatened labor, third trimester Cervical change, bbow, to L&D for likeloy a dmission [facility] Diagnosis Encounter for supervision of normal first in second trimester- Primary Supervision of normal first 14 weeks gestation of state, incidental Depression affecting in second trimester, antepartum Anxiety during Hyperemesis gravidarum Mild hyperemesis gravidarum, unspecified as to episode of care Family history of deafness Family history of deafness or hearing loss Cervix, short (affecting ) Cervical shortening, unspecified as to episode of care or not applicable ADHD (attention deficit hyperactivity disorder) Attention deficit disorder with hyperactivity Heartburn during in third trimester Anxiety and depression Dysthymic disorder Prematurity of fetus Other infants, unspecified (weight) Supervision of high risk in third trimester- Primary Unspecified high-risk Threatened premature labor, antepartum Cervix, short (affecting ) Cervical shortening, unspecified as to episode of care or not applicable 30 weeks gestation of state, incidental Rib pain Chest pain, unspecified Nausea and vomiting in - Primary Unspecified vomiting of , unspecified as to episode of care Cervix, short (affecting ) Cervical shortening, unspecified as to episode of care or not applicable Supervision of high risk in third trimester Unspecified high-risk 31 weeks gestation of state, incidental care and examination immediately after delivery- Primary anxiety Mental disorders of mother, Pain of right thigh Pain in limb [facility] Diagnosis Encounter for supervision of normal first in second trimester- Primary Supervision of normal first 14 weeks gestation of state, incidental Depression affecting in second trimester, antepartum Anxiety during Hyperemesis gravidarum Mild hyperemesis gravidarum, unspecified as to episode of care Family history of deafness Family history of deafness or hearing loss Cervix, short (affecting ) Cervical shortening, unspecified as to episode of care or not applicable ADHD (attention deficit hyperactivity disorder) Attention deficit disorder with hyperactivity Heartburn during in third trimester Anxiety and depression Dysthymic disorder Prematurity of fetus Other infants, unspecified (weight) Supervision of high risk in third trimester- Primary Unspecified high-risk Threatened premature labor, antepartum Cervix, short (affecting ) Cervical shortening, unspecified as to episode of care or not applicable 30 weeks gestation of state, incidental Rib pain Chest pain, unspecified Nausea and vomiting in - Primary Unspecified vomiting of , unspecified as to episode of care Cervix, short (affecting ) Cervical shortening, unspecified as to episode of care or not applicable Supervision of high risk in third trimester Unspecified high-risk 31 weeks gestation of state, incidental Mastitis- Primary Inflammatory disease of breast Rash Rash and other nonspecific skin eruption [facility] Diagnosis Encounter for supervision of normal first in second trimester (HCC)- Primary Supervision of normal first 14 weeks gestation of (HCC) state, incidental Depression affecting in second trimester, antepartum (HCC) Anxiety during ([facility]) Hyperemesis gravidarum (HCC) Mild hyperemesis gravidarum, unspecified as to episode of care Family history of deafness Family history of deafness or hearing loss Cervix, short (affecting ) ([facility] [place]) Cervical shortening, unspecified as to episode of care or not applicable ADHD (attention deficit hyperactivity disorder) Attention deficit disorder with hyperactivity Heartburn during in third trimester ([facility] [place]) Anxiety and depression Dysthymic disorder Prematurity of fetus ([facility] [place]) Other infants, unspecified (weight) Supervision of high risk in third trimester ([facility])- Primary Unspecified high-risk Threatened premature labor, antepartum ([facility]) Cervix, short (affecting ) ([facility] [place]) Cervical shortening, unspecified as to episode of care or not applicable 30 weeks gestation of ([facility]) state, incidental Rib pain Chest pain, unspecified Nausea and vomiting in ([facility])- Primary Unspecified vomiting of , unspecified as to episode of care Cervix, short (affecting ) ([facility] [place]) Cervical shortening, unspecified as to episode of care or not applicable Supervision of high risk in third trimester ([facility] [place]) Unspecified high-risk 31 weeks gestation of ([facility]) state, incidental care and examination ([facility])- Primary Routine follow-up mood disorder ([facility]) [facility] Diagnosis Encounter for supervision of normal first in second trimester ([facility])- Primary Supervision of normal first 14 weeks gestation of ([facility]) state, incidental Depression affecting in second trimester, antepartum ([facility]) Anxiety during ([facility]) Hyperemesis gravidarum ([facility]) Mild hyperemesis gravidarum, unspecified as to episode of care Family history of deafness Family history of deafness or hearing loss Cervix, short (affecting ) ([facility] [place]) Cervical shortening, unspecified as to episode of care or not applicable ADHD (attention deficit hyperactivity disorder) Attention deficit disorder with hyperactivity Anxiety and depression Dysthymic disorder Prematurity of fetus ([facility] [place]) Other infants, unspecified (weight) Supervision of high risk in third trimester ([facility] [place])- Primary Unspecified high-risk Threatened premature labor, antepartum ([facility] [place]) Cervix, short (affecting ) ([facility]) Cervical shortening, unspecified as to episode of care or not applicable 30 weeks gestation of ([facility]) state, incidental Rib pain Chest pain, unspecified Nausea and vomiting in ([facility] [place])- Primary Unspecified vomiting of , unspecified as to episode of care Cervix, short (affecting ) ([facility]) Cervical shortening, unspecified as to episode of care or not applicable Supervision of high risk in third trimester ([facility] [place]) Unspecified high-risk 31 weeks gestation of ([facility]) state, incidental mood disorder ([facility])- Primary documented in this encounter [facility]* Diagnosis Encounter for supervision of normal first in second trimester ([facility])- Primary Supervision of normal first 14 weeks gestation of ([facility]) state, incidental Depression affecting in second trimester, antepartum ([facility] [place]) Anxiety during ([facility]) Hyperemesis gravidarum ([facility]) Mild hyperemesis gravidarum, unspecified as to episode of care Family history of deafness Family history of deafness or hearing loss Cervix, short (affecting ) ([facility]) Cervical shortening, unspecified as to episode of care or not applicable ADHD (attention deficit hyperactivity disorder) Attention deficit disorder with hyperactivity Anxiety and depression Dysthymic disorder Prematurity of fetus ([facility]) Other infants, unspecified (weight) Supervision of high risk in third trimester ([facility])- Primary Unspecified high-risk Threatened premature labor, antepartum ([facility]) Cervix, short (affecting ) ([facility]) Cervical shortening, unspecified as to episode of care or not applicable 30 weeks gestation of ([facility]) state, incidental Rib pain Chest pain, unspecified Nausea and vomiting in ([facility])- Primary Unspecified vomiting of , unspecified as to episode of care Cervix, short (affecting ) ([facility]) Cervical shortening, unspecified as to episode of care or not applicable Supervision of high risk in third trimester ([facility]) Unspecified high-risk 31 weeks gestation of ([facility]) state, incidental Missed period- Primary Irregular menstrual cycle Mastitis Inflammatory disease of breast documented in this encounter [facility] note* Diagnosis Encounter for supervision of normal first in second trimester ([facility])- Primary Supervision of normal first 14 weeks gestation of ([facility]) state, incidental Depression affecting in second trimester, antepartum ([facility]) Anxiety during ([facility]) Hyperemesis gravidarum ([facility]) Mild hyperemesis gravidarum, unspecified as to episode of care Family history of deafness Family history of deafness or hearing loss Cervix, short (affecting ) ([facility]) Cervical shortening, unspecified as to episode of care or not applicable ADHD (attention deficit hyperactivity disorder) Attention deficit disorder with hyperactivity Anxiety and depression Dysthymic disorder Prematurity of fetus (HCC) Other infants, unspecified (weight) Supervision of high risk in third trimester ([facility])- Primary Unspecified high-risk Threatened premature labor, antepartum ([facility]) Cervix, short (affecting ) ([facility]) Cervical shortening, unspecified as to episode of care or not applicable 30 weeks gestation of ([facility]) state, incidental Rib pain Chest pain, unspecified Nausea and vomiting in ([facility])- Primary Unspecified vomiting of , unspecified as to episode of care Cervix, short (affecting ) ([facility]) Cervical shortening, unspecified as to episode of care or not applicable Supervision of high risk in third trimester ([facility]) Unspecified high-risk 31 weeks gestation of ([facility]) state, incidental Well adult on routine health check- Primary Routine general medical examination at a health care facility [facility] Diagnosis Encounter for supervision of normal first in second trimester ([facility])- Primary Supervision of normal first 14 weeks gestation of ([facility]) state, incidental Depression affecting in second trimester, antepartum ([facility]) Anxiety during ([facility]) Hyperemesis gravidarum ([facility]) Mild hyperemesis gravidarum, unspecified as to episode of care Family history of deafness Family history of deafness or hearing loss Cervix, short (affecting ) ([facility]) Cervical shortening, unspecified as to episode of care or not applicable ADHD (attention deficit hyperactivity disorder) Attention deficit disorder with hyperactivity Anxiety and depression Dysthymic disorder Prematurity of fetus (HCC) Other infants, unspecified (weight) Supervision of high risk in third trimester ([facility])- Primary Unspecified high-risk Threatened premature labor, antepartum ([facility]) Cervix, short (affecting ) ([facility]) Cervical shortening, unspecified as to episode of care or not applicable 30 weeks gestation of ([facility]) state, incidental Rib pain Chest pain, unspecified Nausea and vomiting in ([facility])- Primary Unspecified vomiting of , unspecified as to episode of care Cervix, short (affecting ) ([facility]) Cervical shortening, unspecified as to episode of care or not applicable Supervision of high risk in third trimester ([facility]) Unspecified high-risk 31 weeks gestation of ([facility]) state, incidental mood disorder ([facility])- Primary Chronic midline thoracic back pain [facility] Diagnosis Encounter for supervision of normal first in second trimester ([facility])- Primary Supervision of normal first 14 weeks gestation of ([facility]) state, incidental Depression affecting in second trimester, antepartum ([facility]) Anxiety during ([facility]) Hyperemesis gravidarum ([facility]) Mild hyperemesis gravidarum, unspecified as to episode of care Family history of deafness Family history of deafness or hearing loss Cervix, short (affecting ) ([facility]) Cervical shortening, unspecified as to episode of care or not applicable ADHD (attention deficit hyperactivity disorder) Attention deficit disorder with hyperactivity Anxiety and depression Dysthymic disorder Prematurity of fetus ([facility]) Other infants, unspecified (weight) Supervision of high risk in third trimester ([facility])- Primary Unspecified high-risk Threatened premature labor, antepartum ([facility]) Cervix, short (affecting ) ([facility]) Cervical shortening, unspecified as to episode of care or not applicable 30 weeks gestation of ([facility]) state, incidental Rib pain Chest pain, unspecified Nausea and vomiting in ([facility])- Primary Unspecified vomiting of , unspecified as to episode of care Cervix, short (affecting ) ([facility]) Cervical shortening, unspecified as to episode of care or not applicable Supervision of high risk in third trimester ([facility]) Unspecified high-risk 31 weeks gestation of ([facility]) state, incidental Encounter for test, result unknown- Primary documented in this encounter [facility] note* Diagnosis Encounter for supervision of normal first in second trimester ([facility])- Primary Supervision of normal first 14 weeks gestation of ([facility]) state, incidental Depression affecting in second trimester, antepartum ([facility]) Anxiety during ([facility]) Hyperemesis gravidarum ([facility]) Mild hyperemesis gravidarum, unspecified as to episode of care Family history of deafness Family history of deafness or hearing loss Cervix, short (affecting ) ([facility]) Cervical shortening, unspecified as to episode of care or not applicable ADHD (attention deficit hyperactivity disorder) Attention deficit disorder with hyperactivity Anxiety and depression Dysthymic disorder Prematurity of fetus ([facility]) Other infants, unspecified (weight) Supervision of high risk in third trimester ([facility])- Primary Unspecified high-risk Threatened premature labor, antepartum ([facility]) Cervix, short (affecting ) ([facility]) Cervical shortening, unspecified as to episode of care or not applicable 30 weeks gestation of ([facility]) state, incidental Rib pain Chest pain, unspecified Nausea and vomiting in ([facility])- Primary Unspecified vomiting of , unspecified as to episode of care Cervix, short (affecting ) ([facility]) Cervical shortening, unspecified as to episode of care or not applicable Supervision of high risk in third trimester ([facility]) Unspecified high-risk 31 weeks gestation of ([facility]) state, incidental Chronic midline thoracic back pain documented in this encounter [facility] note* Diagnosis Encounter for supervision of normal first in second trimester ([facility] Primary Supervision of normal first 14 weeks gestation of ([facility]) state, incidental Depression affecting in second trimester, antepartum ([facility]) Anxiety during ([facility]) Hyperemesis gravidarum ([facility]) Mild hyperemesis gravidarum, unspecified as to episode of care Family history of deafness Family history of deafness or hearing loss Cervix, short (affecting ) ([facility]) Cervical shortening, unspecified as to episode of care or not applicable ADHD (attention deficit hyperactivity disorder) Attention deficit disorder with hyperactivity Anxiety and depression Dysthymic disorder Prematurity of fetus ([facility]) Other infants, unspecified (weight) Supervision of high risk in third trimester ([facility])- Primary Unspecified high-risk Threatened premature labor, antepartum ([facility]) Cervix, short (affecting ) ([facility]) Cervical shortening, unspecified as to episode of care or not applicable 30 weeks gestation of ([facility]) state, incidental Rib pain Chest pain, unspecified Nausea and vomiting in ([facility] Primary Unspecified vomiting of , unspecified as to episode of care Cervix, short (affecting ) ([facility]) Cervical shortening, unspecified as to episode of care or not applicable Supervision of high risk in third trimester ([facility]) Unspecified high-risk 31 weeks gestation of ([facility]) state, incidental Missed menses- Primary Absence of menstruation Encounter for test, result positive ([facility]) examination or test, positive result documented in this encounter [facility] note* Diagnosis Encounter for supervision of normal first in second trimester ([facility])- Primary Supervision of normal first 14 weeks gestation of ([facility]) state, incidental Depression affecting in second trimester, antepartum ([facility]) Anxiety during (HCC) Hyperemesis gravidarum (HCC) Mild hyperemesis gravidarum, unspecified as to episode of care Family history of deafness Family history of deafness or hearing loss Cervix, short (affecting ) (HCC) Cervical shortening, unspecified as to episode of care or not applicable ADHD (attention deficit hyperactivity disorder) Attention deficit disorder with hyperactivity Anxiety and depression Dysthymic disorder Prematurity of fetus (HCC) Other infants, unspecified (weight) Supervision of high risk in third trimester ([facility] Primary Unspecified high-risk Threatened premature labor, antepartum ([facility]) Cervix, short (affecting ) ([facility]) Cervical shortening, unspecified as to episode of care or not applicable 30 weeks gestation of ([facility]) state, incidental Rib pain Chest pain, unspecified Nausea and vomiting in ([facility] Primary Unspecified vomiting of , unspecified as to episode of care Cervix, short (affecting ) ([facility]) Cervical shortening, unspecified as to episode of care or not applicable Supervision of high risk in third trimester ([facility]) Unspecified high-risk 31 weeks gestation of ([facility]) state, incidental Nausea and vomiting in ([facility] Primary Unspecified vomiting of , unspecified as to episode of care documented in this encounter [facility] [facility] Main CampusEvaluation noteNo assessment information availableWLima [facility] Hospital Work Phone: Evaluation note* Diagnosis Encounter for supervision of normal first in second trimester ([facility] Primary Supervision of normal first 14 weeks gestation of ([facility]) state, incidental Depression affecting in second trimester, antepartum ([facility]) Anxiety during ([facility]) Hyperemesis gravidarum (HCC) Mild hyperemesis gravidarum, unspecified as to episode of care Family history of deafness Family history of deafness or hearing loss Cervix, short (affecting ) ([facility]) Cervical shortening, unspecified as to episode of care or not applicable ADHD (attention deficit hyperactivity disorder) Attention deficit disorder with hyperactivity Anxiety and depression Dysthymic disorder Prematurity of fetus (HCC) Other infants, unspecified (weight) Supervision of high risk in third trimester ([facility])- Primary Unspecified high-risk Threatened premature labor, antepartum ([facility]) Cervix, short (affecting ) ([facility]) Cervical shortening, unspecified as to episode of care or not applicable 30 weeks gestation of ([facility]) state, incidental Rib pain Chest pain, unspecified Nausea and vomiting in ([facility])- Primary Unspecified vomiting of , unspecified as to episode of care Cervix, short (affecting ) ([facility]) Cervical shortening, unspecified as to episode of care or not applicable Supervision of high risk in third trimester ([facility]) Unspecified high-risk 31 weeks gestation of ([facility]) state, incidental Pelvic pain in ([facility])- Primary Other specified complication of , unspecified as to episode of care documented in this encounter [facility] note* Diagnosis Encounter for supervision of normal first in second trimester ([facility])- Primary Supervision of normal first 14 weeks gestation of ([facility]) state, incidental Depression affecting in second trimester, antepartum ([facility]) Anxiety during ([facility]) Hyperemesis gravidarum ([facility]) Mild hyperemesis gravidarum, unspecified as to episode of care Family history of deafness Family history of deafness or hearing loss Cervix, short (affecting ) ([facility]) Cervical shortening, unspecified as to episode of care or not applicable ADHD (attention deficit hyperactivity disorder) Attention deficit disorder with hyperactivity Anxiety and depression Dysthymic disorder Prematurity of fetus ([facility]) Other infants, unspecified (weight) Supervision of high risk in third trimester ([facility])- Primary Unspecified high-risk Threatened premature labor, antepartum ([facility]) Cervix, short (affecting ) ([facility]) Cervical shortening, unspecified as to episode of care or not applicable 30 weeks gestation of ([facility]) state, incidental Rib pain Chest pain, unspecified Nausea and vomiting in ([facility])- Primary Unspecified vomiting of , unspecified as to episode of care Cervix, short (affecting ) ([facility]) Cervical shortening, unspecified as to episode of care or not applicable Supervision of high risk in third trimester ([facility]) Unspecified high-risk 31 weeks gestation of ([facility]) state, incidental Chronic midline low back pain, unspecified whether sciatica present- Primary documented in this encounter [facility] note* Diagnosis Encounter for supervision of normal first in second trimester ([facility])- Primary Supervision of normal first 14 weeks gestation of ([facility]) state, incidental Depression affecting in second trimester, antepartum ([facility]) Anxiety during ([facility]) Hyperemesis gravidarum ([facility]) Mild hyperemesis gravidarum, unspecified as to episode of care Family history of deafness Family history of deafness or hearing loss Cervix, short (affecting ) ([facility]) Cervical shortening, unspecified as to episode of care or not applicable ADHD (attention deficit hyperactivity disorder) Attention deficit disorder with hyperactivity Anxiety and depression Dysthymic disorder Prematurity of fetus (HCC) Other infants, unspecified (weight) Supervision of high risk in third trimester ([facility])- Primary Unspecified high-risk Threatened premature labor, antepartum ([facility]) Cervix, short (affecting ) ([facility]) Cervical shortening, unspecified as to episode of care or not applicable 30 weeks gestation of ([facility]) state, incidental Rib pain Chest pain, unspecified Nausea and vomiting in ([facility])- Primary Unspecified vomiting of , unspecified as to episode of care Cervix, short (affecting ) ([facility]) Cervical shortening, unspecified as to episode of care or not applicable Supervision of high risk in third trimester ([facility]) Unspecified high-risk 31 weeks gestation of ([facility]) state, incidental Chronic insomnia- Primary Insomnia, unspecified Eczema, unspecified type Depression, unspecified depression type Hyperemesis gravidarum ([facility]) Mild hyperemesis gravidarum, unspecified as to episode of care [facility] Diagnosis Encounter for supervision of normal first in second trimester ([facility])- Primary Supervision of normal first 14 weeks gestation of ([facility]) state, incidental Depression affecting in second trimester, antepartum ([facility]) Anxiety during ([facility]) Hyperemesis gravidarum ([facility]) Mild hyperemesis gravidarum, unspecified as to episode of care Family history of deafness Family history of deafness or hearing loss Cervix, short (affecting ) ([facility]) Cervical shortening, unspecified as to episode of care or not applicable ADHD (attention deficit hyperactivity disorder) Attention deficit disorder with hyperactivity Anxiety and depression Dysthymic disorder Prematurity of fetus (HCC) Other infants, unspecified (weight) Supervision of high risk in third trimester ([facility])- Primary Unspecified high-risk Threatened premature labor, antepartum ([facility]) Cervix, short (affecting ) ([facility]) Cervical shortening, unspecified as to episode of care or not applicable 30 weeks gestation of ([facility]) state, incidental Rib pain Chest pain, unspecified Nausea and vomiting in (HCC)- Primary Unspecified vomiting of , unspecified as to episode of care Cervix, short (affecting ) ([facility]) Cervical shortening, unspecified as to episode of care or not applicable Supervision of high risk in third trimester ([facility]) Unspecified high-risk 31 weeks gestation of ([facility]) state, incidental with uncertain dates in first trimester ([facility])- Primary with uncertain viability, single or unspecified fetus ([facility]) Left lower quadrant pain Abdominal pain, left lower quadrant [facility] Diagnosis Family history of deafness Family history of deafness or hearing loss ADHD (attention deficit hyperactivity disorder) Attention deficit disorder with hyperactivity Anxiety and depression Dysthymic disorder Prematurity of fetus ([facility]) Other infants, unspecified (weight) Encounter for supervision of normal in multigravida in first trimester ([facility])- Primary 7 weeks gestation of ([facility]) state, incidental Short interval between pregnancies affecting , antepartum ([facility]) Encounter to determine viability of , single or unspecified fetus ([facility]) with uncertain dates in first trimester ([facility]) Nausea and vomiting during ([facility]) [facility]* Attachments The following attachments cannot be sent through Care Everywhere. * Hyperemesis Gravidarum (HG) ([facility]) ([place]) [facility] in [facility] instructions Additional Instructions It is too early in your to see anything on the ultrasound. Make sure you call the [facility] [employer] OPERATOR office tomorrow. The staff there will instruct you when to get your blood work drawn next to check the hCG quant which is the hormone level. 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 Continue to take your home antinausea medicine as needed. Drink plenty of fluids. Recommend small frequent meals. You had bacteria in your urine, we will place you on antibiotics to prevent UTI. First dose given here.[facility] Work Phone: Reason for referral (narrative)* Diagnostic Procedure Only (Routine) - New Request Specialty Diagnoses / Procedures Referred By Contac t Referred To Contact [facility] Diagnoses with uncertain dates in first trimester Procedures PELVIC US WHI US PELVIC NONOBSTETRIC REAL-TIME IMAGE COMPLETE Toby Rome APRN.CNP [address] [place] [address] [facility] [address] [place] [address] Referral ID Status Reason Start Date Expiration Date Visits Requested Visits Authorized [id number] New Request Auto-Generat ed Referral 03/27/2024 03/27/2025 1 1 [facility] for referral (narrative)* Diagnostic Procedure Only (Routine) - New Request Specialty Diagnoses / Procedures Referred By Contac t Referred To Contact [facility] Diagnoses Encounter for test, result positive Procedures OBSTETRIC ULTRASOUND WHI US PREG UTERUS AFTER 1ST TRIMEST GESTATION Katina Reddy MD [address] [place] [address] [facility] [address] [place] [address] Referral ID Status Reason Start Date Expiration Date Visits Requested Visits Authorized [id number] New Request Auto-Generat ed Referral 04/02/2024 04/02/2025 1 1 [facility] for referral (narrative)* Diagnostic Procedure Only (Routine) - Authorized Specialty Diagnoses / Procedures Referred By Contac t Referred To Contact [facility] Diagnoses Encounter for supervision of normal first in first trimester 12 weeks gestation of Procedures NUCHAL TRANSLUCENCY WHI US NUCHAL TRANSLUCENCY 1ST GESTATION Toby Rome APRN.CNP [address] [place] [address] [facility] [address] [place] [address] Referral ID Status Reason Start Date Expiration Date Visits Requested Visits Authorized [id number] Authorized Auto-Generat ed Referral 05/08/2024 05/08/2025 1 1 [facility] for referral (narrative)* Diagnostic Procedure Only (Routine) - Authorized Specialty Diagnoses / Procedures Referred By Contac t Referred To Contact [facility] Diagnoses Cervical shortening, second trimester Procedures OBSTETRIC ULTRASOUND WHI US PREG UTERUS AFTER 1ST TRIMEST GESTATION Belle Carrillo MD [address] [place] [address] [address] Referral ID Status Reason Start Date Expiration Date Visits Requested Visits Authorized [id number] Authorized Auto-Generat ed Referral 06/30/2025 1 1 [facility] for referral (narrative)No reason for referral information availableWLima Memorial Hospital Work Phone: Reason for visit Narrative* Diagnostic Procedure Only (Routine) - Closed Specialty Diagnoses / Procedures Referred By Contac t Referred To Contact [facility] Diagnoses with uncertain dates in first trimester Procedures PELVIC US I US PELVIC NONOBSTETRIC REAL-TIME IMAGE COMPLETE Toby Roem, HEAD SAWYER.HOG BUYER [address] [place] [address] [address] Referral ID Status Reason Start Date Expiration Date V isits Requested Visits Authorized [id number] Closed Auto-Generate d Referral 03/27/2024 03/27/2025 1 1 [facility] for visit Narrative* (Routine) - Closed Specialty Diagnoses / Procedures Referred By Contac t Referred To Contact Radiology / RADIO MRI [facility] Diagnoses Chronic midline thoracic back pain [M54.6, G89.29] Procedures MRI [facility] [address] Diony Ferreira MD [address] [place] [address] Phone: tel: fax: Radiology [address] [place] [address] Phone: tel: fax: Referral ID Status Reason Start Date Expiration Date Visits Re quested Visits Authorized [id number] Closed 03/03/2025 06/01/2025 1 1 [facility] N[facility]* (Routine) - Closed Specialty Diagnoses / Procedures Referred By Contac t Referred To Contact Radiology / RADIO MRI [facility] Diagnoses Chronic midline thoracic back pain [M54.6, G89.29] Procedures MRI WO [facility] [address] ALL Diony Ferreira MD [address] [place] [address] Phone: tel: fax: Radiology [address] [place] [address] Phone: tel: fax: Referral ID Status Reason Start Date Expiration Date Visits Re quested Visits Authorized [id number] Closed 03/03/2025 06/01/2025 1 1 [facility] Reason for Referral Specialty Diagnoses / Procedures Referred By Contac t Referred To Contact Diagnoses Sleep initiation disorder Procedures CONSULT TO SLEEP MEDICINE - ADULT OFFICE/OUTPATIENT [facility] MDM 60-74 MINUTES Kuldeep Khan MD [address] [place] [address] Referral ID Status Reason Start Date Expiration Date Visits Requested Visits Authorized [id number] Pending Review PCP Requested Referral 06/21/2023 06/20/2024 1 1 Specialty Diagnoses / Procedures Referred By Contac t Referred To Contact Diagnoses Depression affecting in second trimester, antepartum Procedures CONSULT TO [facility] OFFICE/OUTPATIENT [facility] MDM 60 MINUTES Toby Rome APRN.HOG BUYER [address] [place] [address] Referral ID Status Reason Start Date Expiration Date Visits Requested Visits Authorized [id number] Authorized PCP Requested Referral 05/22/2024 05/22/2025 1 1 Specialty Diagnoses / Procedures Referred By Contac t Referred To Contact [facility] Diagnoses 30 weeks gestation of Supervision of high risk in third trimester Rib pain Procedures CONSULT TO PHYSICAL THERAPY PHYSICAL THERAPY EVALUATION HIGH COMPLEX 45 MINS Belle Carrillo MD [address] [place] [address] [facility] [place] [address] Referral ID Status Reason Start Date Expiration Date Visits Requested Visits Authorized [id number] Pending Review Auto-Generat ed Referral 09/08/2024 09/08/2025 1 1 Summary Purpose Family History No Family History Records FoundNo Family History Records FoundNo Family History Records FoundNo Family History Records Found Advance Directives No Advanced Directives Records Found Advance Directive Response Recorded Date/ Time Do you have a Healthcare Power of Home Health Physical Therapist? No April 08, 2025 2:22pm Advance Directive Response Recorded Date/ Time Do you have a Healthcare Power of Home Health Physical Therapist? No April 08, 2025 2:22pm Do you have a Healthcare Power of Home Health Physical Therapist? No April 29, 2025 6:54pm Chief Complaint and Reason for Visit Chief Complaint Admit Date abd pain April 08, 2025 1: 55pm Chief Complaint Admit Date abd pain April 08, 2025 1: 55pm N/V April 29, 2025 6:00pm Additional Source Comments Source Comments (unrecognize d section and content) In the event this informatio n is protected by the Federal Confidentiality of Alcohol and Drug Abuse Patient Records regulations: The Federal rules restrict any use of the information to criminally investigate or prosecute any alcohol or drug abuse patient.[facility] the event this information is protected by the Federal Confidentiality of Alcohol and Drug Abuse Patient Records regulations: The Federal rules restrict any use of the information to criminally investigate or prosecute any alcohol or drug abuse patient.[facility] CampusIn the event this information is protected by the Federal Confidentiality of Alcohol and Drug Abuse Patient Records regulations: The Federal rules restrict any use of the information to criminally investigate or prosecute any alcohol or drug abuse patient.[facility] CampusIn the event this information is protected by the Federal Confidentiality of Alcohol and Drug Abuse Patient Records regulations: The Federal rules restrict any use of the information to criminally investigate or prosecute any alcohol or drug abuse patient.[facility] CampusIn the event this information is protected by the Federal Confidentiality of Alcohol and Drug Abuse Patient Records regulations: The Federal rules restrict any use of the information to criminally investigate or prosecute any alcohol or drug abuse patient.[facility] CampusIn the event this information is protected by the Federal Confidentiality of Alcohol and Drug Abuse Patient Records regulations: The Federal rules restrict any use of the information to criminally investigate or prosecute any alcohol or drug abuse patient.[facility] CampusIn the event this information is protected by the Federal Confidentiality of Alcohol and Drug Abuse Patient Records regulations: The Federal rules restrict any use of the information to criminally investigate or prosecute any alcohol or drug abuse patient.[facility] CampusIn the event this information is protected by the Federal Confidentiality of Alcohol and Drug Abuse Patient Records regulations: The Federal rules restrict any use of the information to criminally investigate or prosecute any alcohol or drug abuse patient.[facility] CampusIn the event this information is protected by the Federal Confidentiality of Alcohol and Drug Abuse Patient Records regulations: The Federal rules restrict any use of the information to criminally investigate or prosecute any alcohol or drug abuse patient.[facility] CampusIn the event this information is protected by the Federal Confidentiality of Alcohol and Drug Abuse Patient Records regulations: The Federal rules restrict any use of the information to criminally investigate or prosecute any alcohol or drug abuse patient.[facility] CampusIn the event this information is protected by the Federal Confidentiality of Alcohol and Drug Abuse Patient Records regulations: The Federal rules restrict any use of the information to criminally investigate or prosecute any alcohol or drug abuse patient.[facility] CampusIn the event this information is protected by the Federal Confidentiality of Alcohol and Drug Abuse Patient Records regulations: The Federal rules restrict any use of the information to criminally investigate or prosecute any alcohol or drug abuse patient.[facility] CampusIn the event this information is protected by the Federal Confidentiality of Alcohol and Drug Abuse Patient Records regulations: The Federal rules restrict any use of the information to criminally investigate or prosecute any alcohol or drug abuse patient.[facility] CampusIn the event this information is protected by the Federal Confidentiality of Alcohol and Drug Abuse Patient Records regulations: The Federal rules restrict any use of the information to criminally investigate or prosecute any alcohol or drug abuse patient.[facility] CampusIn the event this information is protected by the Federal Confidentiality of Alcohol and Drug Abuse Patient Records regulations: The Federal rules restrict any use of the information to criminally investigate or prosecute any alcohol or drug abuse patient.[facility] CampusIn the event this information is protected by the Federal Confidentiality of Alcohol and Drug Abuse Patient Records regulations: The Federal rules restrict any use of the information to criminally investigate or prosecute any alcohol or drug abuse patient.[facility] CampusIn the event this information is protected by the Federal Confidentiality of Alcohol and Drug Abuse Patient Records regulations: The Federal rules restrict any use of the information to criminally investigate or prosecute any alcohol or drug abuse patient.[facility] CampusIn the event this information is protected by the Federal Confidentiality of Alcohol and Drug Abuse Patient Records regulations: The Federal rules restrict any use of the information to criminally investigate or prosecute any alcohol or drug abuse patient.[facility] CampusIn the event this information is protected by the Federal Confidentiality of Alcohol and Drug Abuse Patient Records regulations: The Federal rules restrict any use of the information to criminally investigate or prosecute any alcohol or drug abuse patient.[facility] CampusIn the event this information is protected by the Federal Confidentiality of Alcohol and Drug Abuse Patient Records regulations: The Federal rules restrict any use of the information to criminally investigate or prosecute any alcohol or drug abuse patient.[facility] CampusIn the event this information is protected by the Federal Confidentiality of Alcohol and Drug Abuse Patient Records regulations: The Federal rules restrict any use of the information to criminally investigate or prosecute any alcohol or drug abuse patient.[facility] CampusIn the event this information is protected by the Federal Confidentiality of Alcohol and Drug Abuse Patient Records regulations: The Federal rules restrict any use of the information to criminally investigate or prosecute any alcohol or drug abuse patient.[facility] CampusIn the event this information is protected by the Federal Confidentiality of Alcohol and Drug Abuse Patient Records regulations: The Federal rules restrict any use of the information to criminally investigate or prosecute any alcohol or drug abuse patient.[facility] CampusIn the event this information is protected by the Federal Confidentiality of Alcohol and Drug Abuse Patient Records regulations: The Federal rules restrict any use of the information to criminally investigate or prosecute any alcohol or drug abuse patient.[facility] CampusIn the event this information is protected by the Federal Confidentiality of Alcohol and Drug Abuse Patient Records regulations: The Federal rules restrict any use of the information to criminally investigate or prosecute any alcohol or drug abuse patient.[facility] CampusIn the event this information is protected by the Federal Confidentiality of Alcohol and Drug Abuse Patient Records regulations: The Federal rules restrict any use of the information to criminally investigate or prosecute any alcohol or drug abuse patient.[facility] CampusIn the event this information is protected by the Federal Confidentiality of Alcohol and Drug Abuse Patient Records regulations: The Federal rules restrict any use of the information to criminally investigate or prosecute any alcohol or drug abuse patient.[facility] CampusIn the event this information is protected by the Federal Confidentiality of Alcohol and Drug Abuse Patient Records regulations: The Federal rules restrict any use of the information to criminally investigate or prosecute any alcohol or drug abuse patient.[facility] CampusIn the event this information is protected by the Federal Confidentiality of Alcohol and Drug Abuse Patient Records regulations: The Federal rules restrict any use of the information to criminally investigate or prosecute any alcohol or drug abuse patient.[facility] CampusIn the event this information is protected by the Federal Confidentiality of Alcohol and Drug Abuse Patient Records regulations: The Federal rules restrict any use of the information to criminally investigate or prosecute any alcohol or drug abuse patient.[facility] CampusIn the event this information is protected by the Federal Confidentiality of Alcohol and Drug Abuse Patient Records regulations: The Federal rules restrict any use of the information to criminally investigate or prosecute any alcohol or drug abuse patient.[facility] CampusIn the event this information is protected by the Federal Confidentiality of Alcohol and Drug Abuse Patient Records regulations: The Federal rules restrict any use of the information to criminally investigate or prosecute any alcohol or drug abuse patient.[facility] CampusIn the event this information is protected by the Federal Confidentiality of Alcohol and Drug Abuse Patient Records regulations: The Federal rules restrict any use of the information to criminally investigate or prosecute any alcohol or drug abuse patient.[facility] CampusIn the event this information is protected by the Federal Confidentiality of Alcohol and Drug Abuse Patient Records regulations: The Federal rules restrict any use of the information to criminally investigate or prosecute any alcohol or drug abuse patient.[facility] CampusIn the event this information is protected by the Federal Confidentiality of Alcohol and Drug Abuse Patient Records regulations: The Federal rules restrict any use of the information to criminally investigate or prosecute any alcohol or drug abuse patient.[facility] CampusIn the event this information is protected by the Federal Confidentiality of Alcohol and Drug Abuse Patient Records regulations: The Federal rules restrict any use of the information to criminally investigate or prosecute any alcohol or drug abuse patient.[facility] CampusIn the event this information is protected by the Federal Confidentiality of Alcohol and Drug Abuse Patient Records regulations: The Federal rules restrict any use of the information to criminally investigate or prosecute any alcohol or drug abuse patient.[facility] CampusIn the event this information is protected by the Federal Confidentiality of Alcohol and Drug Abuse Patient Records regulations: The Federal rules restrict any use of the information to criminally investigate or prosecute any alcohol or drug abuse patient.[facility] CampusIn the event this information is protected by the Federal Confidentiality of Alcohol and Drug Abuse Patient Records regulations: The Federal rules restrict any use of the information to criminally investigate or prosecute any alcohol or drug abuse patient.[facility] CampusIn the event this information is protected by the Federal Confidentiality of Alcohol and Drug Abuse Patient Records regulations: The Federal rules restrict any use of the information to criminally investigate or prosecute any alcohol or drug abuse patient.[facility] CampusIn the event this information is protected by the Federal Confidentiality of Alcohol and Drug Abuse Patient Records regulations: The Federal rules restrict any use of the information to criminally investigate or prosecute any alcohol or drug abuse patient.[facility] CampusIn the event this information is protected by the Federal Confidentiality of Alcohol and Drug Abuse Patient Records regulations: The Federal rules restrict any use of the information to criminally investigate or prosecute any alcohol or drug abuse patient.[facility] CampusIn the event this information is protected by the Federal Confidentiality of Alcohol and Drug Abuse Patient Records regulations: The Federal rules restrict any use of the information to criminally investigate or prosecute any alcohol or drug abuse patient.[facility] CampusIn the event this information is protected by the Federal Confidentiality of Alcohol and Drug Abuse Patient Records regulations: The Federal rules restrict any use of the information to criminally investigate or prosecute any alcohol or drug abuse patient.[facility] CampusIn the event this information is protected by the Federal Confidentiality of Alcohol and Drug Abuse Patient Records regulations: The Federal rules restrict any use of the information to criminally investigate or prosecute any alcohol or drug abuse patient.[facility] CampusIn the event this information is protected by the Federal Confidentiality of Alcohol and Drug Abuse Patient Records regulations: The Federal rules restrict any use of the information to criminally investigate or prosecute any alcohol or drug abuse patient.[facility] CampusIn the event this information is protected by the Federal Confidentiality of Alcohol and Drug Abuse Patient Records regulations: The Federal rules restrict any use of the information to criminally investigate or prosecute any alcohol or drug abuse patient.[facility] CampusIn the event this information is protected by the Federal Confidentiality of Alcohol and Drug Abuse Patient Records regulations: The Federal rules restrict any use of the information to criminally investigate or prosecute any alcohol or drug abuse patient.[facility] CampusIn the event this information is protected by the Federal Confidentiality of Alcohol and Drug Abuse Patient Records regulations: The Federal rules restrict any use of the information to criminally investigate or prosecute any alcohol or drug abuse patient.[facility] CampusIn the event this information is protected by the Federal Confidentiality of Alcohol and Drug Abuse Patient Records regulations: The Federal rules restrict any use of the information to criminally investigate or prosecute any alcohol or drug abuse patient.[facility] CampusIn the event this information is protected by the Federal Confidentiality of Alcohol and Drug Abuse Patient Records regulations: The Federal rules restrict any use of the information to criminally investigate or prosecute any alcohol or drug abuse patient.[facility] CampusIn the event this information is protected by the Federal Confidentiality of Alcohol and Drug Abuse Patient Records regulations: The Federal rules restrict any use of the information to criminally investigate or prosecute any alcohol or drug abuse patient.[facility] CampusIn the event this information is protected by the Federal Confidentiality of Alcohol and Drug Abuse Patient Records regulations: The Federal rules restrict any use of the information to criminally investigate or prosecute any alcohol or drug abuse patient.[facility] CampusIn the event this information is protected by the Federal Confidentiality of Alcohol and Drug Abuse Patient Records regulations: The Federal rules restrict any use of the information to criminally investigate or prosecute any alcohol or drug abuse patient.[facility] CampusIn the event this information is protected by the Federal Confidentiality of Alcohol and Drug Abuse Patient Records regulations: The Federal rules restrict any use of the information to criminally investigate or prosecute any alcohol or drug abuse patient.[facility] CampusIn the event this information is protected by the Federal Confidentiality of Alcohol and Drug Abuse Patient Records regulations: The Federal rules restrict any use of the information to criminally investigate or prosecute any alcohol or drug abuse patient.[facility] CampusIn the event this information is protected by the Federal Confidentiality of Alcohol and Drug Abuse Patient Records regulations: The Federal rules restrict any use of the information to criminally investigate or prosecute any alcohol or drug abuse patient.[facility] CampusIn the event this information is protected by the Federal Confidentiality of Alcohol and Drug Abuse Patient Records regulations: The Federal rules restrict any use of the information to criminally investigate or prosecute any alcohol or drug abuse patient.[facility] CampusIn the event this information is protected by the Federal Confidentiality of Alcohol and Drug Abuse Patient Records regulations: The Federal rules restrict any use of the information to criminally investigate or prosecute any alcohol or drug abuse patient.[facility] CampusIn the event this information is protected by the Federal Confidentiality of Alcohol and Drug Abuse Patient Records regulations: The Federal rules restrict any use of the information to criminally investigate or prosecute any alcohol or drug abuse patient.[facility] CampusIn the event this information is protected by the Federal Confidentiality of Alcohol and Drug Abuse Patient Records regulations: The Federal rules restrict any use of the information to criminally investigate or prosecute any alcohol or drug abuse patient.[facility] CampusIn the event this information is protected by the Federal Confidentiality of Alcohol and Drug Abuse Patient Records regulations: The Federal rules restrict any use of the information to criminally investigate or prosecute any alcohol or drug abuse patient.[facility] CampusIn the event this information is protected by the Federal Confidentiality of Alcohol and Drug Abuse Patient Records regulations: The Federal rules restrict any use of the information to criminally investigate or prosecute any alcohol or drug abuse patient.[facility] CampusIn the event this information is protected by the Federal Confidentiality of Alcohol and Drug Abuse Patient Records regulations: The Federal rules restrict any use of the information to criminally investigate or prosecute any alcohol or drug abuse patient.[facility] CampusIn the event this information is protected by the Federal Confidentiality of Alcohol and Drug Abuse Patient Records regulations: The Federal rules restrict any use of the information to criminally investigate or prosecute any alcohol or drug abuse patient.[facility] CampusIn the event this information is protected by the Federal Confidentiality of Alcohol and Drug Abuse Patient Records regulations: The Federal rules restrict any use of the information to criminally investigate or prosecute any alcohol or drug abuse patient.[facility] CampusIn the event this information is protected by the Federal Confidentiality of Alcohol and Drug Abuse Patient Records regulations: The Federal rules restrict any use of the information to criminally investigate or prosecute any alcohol or drug abuse patient.[facility] CampusIn the event this information is protected by the Federal Confidentiality of Alcohol and Drug Abuse Patient Records regulations: The Federal rules restrict any use of the information to criminally investigate or prosecute any alcohol or drug abuse patient.[facility] CampusIn the event this information is protected by the Federal Confidentiality of Alcohol and Drug Abuse Patient Records regulations: The Federal rules restrict any use of the information to criminally investigate or prosecute any alcohol or drug abuse patient.[facility] CampusIn the event this information is protected by the Federal Confidentiality of Alcohol and Drug Abuse Patient Records regulations: The Federal rules restrict any use of the information to criminally investigate or prosecute any alcohol or drug abuse patient.[facility] CampusIn the event this information is protected by the Federal Confidentiality of Alcohol and Drug Abuse Patient Records regulations: The Federal rules restrict any use of the information to criminally investigate or prosecute any alcohol or drug abuse patient.[facility] CampusIn the event this information is protected by the Federal Confidentiality of Alcohol and Drug Abuse Patient Records regulations: The Federal rules restrict any use of the information to criminally investigate or prosecute any alcohol or drug abuse patient.[facility] CampusIn the event this information is protected by the Federal Confidentiality of Alcohol and Drug Abuse Patient Records regulations: The Federal rules restrict any use of the information to criminally investigate or prosecute any alcohol or drug abuse patient.[facility] CampusIn the event this information is protected by the Federal Confidentiality of Alcohol and Drug Abuse Patient Records regulations: The Federal rules restrict any use of the information to criminally investigate or prosecute any alcohol or drug abuse patient.[facility] Reason for Visit (unrecogniz ed section and content) Reason Comments UTI Pt presented with pa rent, reported frequency, burning x4 days. Reason Comments Results Urine Cx Reason Comments Urinary Frequency With burning x1 week Reason Comments Results Reason Comments Medication Discussion Reason Comments Flu Like Symptoms Fever, bodyaches, ru nny nose, cough, sore throat headache x 4 days but worse x 2 Reason Comments Nexplanon removal Specialty Diagnoses / Procedures Referred By Abdirahman palma Referred To Contact [facility] Diagnoses Encounter for Nexplanon removal Encounter for initial prescription of implantable subdermal contraceptive Procedures NEXPLANON REMOVAL REMOVAL NON-BIODEGRADABLE DRUG DELIVERY IMPLANT INSERT DRUG IMPLANT DEVICE ETONOGESTREL IMPLANT SYSTEM Toby Rome APRN.HOG BU[employer]ER [address] [place] [address] [facility] [address] [place] [address] Referral ID Status Reason Start Date Expiration Date Visits Requested Visits Authorized [id number] Authorized Auto-Generat ed Referral 09/16/2023 08/18/2024 2 2 Reason Comments Care test x 2 d ays late Reason Comments Initial OB Visit Reason Comments Cough Sore throat, congest ion, fever, nausea x 2 days Reason Comments Appointment Reason Comments Hives BLE's covered in hiv es x 2 days, red bumps and itchy Reason Comments Heartburn Reason Comments OB dizziness Reason Onset Date Comments Care 05/08/2024 Reason Onset Date Comments Care 05/13/2024 Reason Comments Orders Reason Comments US Specialty Diagnoses / Procedures Referred By Contac t Referred To Contact [facility] Diagnoses Encounter for supervision of normal first in first trimester 12 weeks gestation of Procedures NUCHAL TRANSLUCENCY WHI US NUCHAL TRANSLUCENCY 1ST GESTATION Toby Rome APRN.HOG BU[employer]ER [address] [place] [address] [facility] [address] [place] [address] Referral ID Status Reason Start Date Expiration Date V isits Requested Visits Authorized [id number] Closed Auto-Generate d Referral 05/08/2024 05/08/2025 1 1 Reason Comments Problem Patient to ED with c /o I can't stop vomiting since yesterday. Patient is currently 14 weeks . States I'm getting a nurse tomorrow. Reason Comments Patient Update Reason Onset Date Comments Care 05/22/2024 Nausea improved. Reason Comments Urinary Frequency burning with urinati on x 1 week, 15 weeks Reason Onset Date Comments Care 06/05/2024 Reason Onset Date Comments Care 06/30/2024 Specialty Diagnoses / Procedures Referred By Contac t Referred To Contact [facility] Diagnoses Encounter for test, result positive Procedures OBSTETRIC ULTRASOUND WHI US PREG UTERUS AFTER 1ST TRIMEST GESTATION Katina Reddy MD [address] [place] [address] [address] Referral ID Status Reason Start Date Expiration Date V isits Requested Visits Authorized [id number] Closed Auto-Generate d Referral 06/30/2024 08/18/2024 1 1 Specialty Diagnoses / Procedures Referred By Contac t Referred To Contact [facility] Diagnoses Cervical shortening, second trimester Procedures OBSTETRIC ULTRASOUND WHI US PREG UTERUS AFTER 1ST TRIMEST GESTATION Belle Carrillo MD [address] [place] [address] [address] Referral ID Status Reason Start Date Expiration Date V isits Requested Visits Authorized [id number] Closed Auto-Generate d Referral 06/30/2024 06/30/2025 1 1 Reason Onset Date Comments Care 07/13/2024 Reason Onset Date Comments Care 07/27/2024 Reason Onset Date Comments Care 08/24/2024 Reason Comments Contractions Reason Onset Date Comments Transition Of Care 08/26/2024 Discharged: A [facility] contractions 08/25/24, 15 hours Reason Comments Letter Reason Onset Date Comments Care 09/08/2024 Reason Comments OB Vomiting Reason Onset Date Comments Care 09/15/2024 Ob Problem Visit Reason Onset Date Comments Care 09/23/2024 Reason Comments PT Eval Specialty Diagnoses / Procedures Referred By Contac t Referred To Contact [facility] Diagnoses 30 weeks gestation of Supervision of high risk in third trimester Rib pain Procedures CONSULT TO PHYSICAL THERAPY PHYSICAL THERAPY EVALUATION HIGH COMPLEX 45 MINS Belle Carrillo MD [address] [place] [address] Phone: tel: fax: [facility] [address] [place] [id number] Referral ID Status Reason Start Date Expiration Date Visits Requested Visits Authorized [id number] Authorized Auto-Generat ed Referral 08/19/2024 08/18/2025 30 30 Reason Onset Date Comments Care 09/30/2024 Reason Onset Date Comments Care 10/15/2024 Reason Onset Date Comments Refill Request 10/19/2024 Reason Onset Date Comments Care 10/22/2024 Reason Comments Ob Delivery Note Reason Comments Early Reason Comments Anxiety Reason Comments Breast Problem Bilat breast, rednes s warmth, painful, lumps present in both, states she is exclusively pumping x 1 week Reason Comments Routine Reason Comments Follow Up Reason Comments Breast Problem Mastitis x 1 day lef t breast-also missed eriod Reason Comments Transition Of Care Reason Comments Establish Care back pain start abou t 1 month ago after starting back to work.States it is in about the same spot of epidural. Specialty Diagnoses / Procedures Referred By Abdirahman palma Referred To Contact Diagnoses Well adult on routine health check Procedures ESTABLISH WITH PRIMARY CARE NEW PATIENT OFFICE/OUTPATIENT [facility] MDM 60 MINUTES Kuldeep Khan MD [address] [place] [address] Phone: tel: fax: Referral ID Status Reason Start Date Expiration Date V isits Requested Visits Authorized [id number] Closed PCP Requested Referral 02/24/2025 02/24/2026 1 1 Reason Comments problem visit Reason Comments LLQ Pain in early Reason Comments Recheck medication and labs results Recently tested positive for Abdominal Pain off and on left side Derm Problem on right palm and 3r d and 4th digits Reason Comments Nausea Reason Comments Initial OB Visit Reason Comments [facility] Care Teams (unrecognized sec tion and content) Wastewater Treatment Supervisor Relationship Specialty Start Date End Date Kuldeep Khan MD [address] [place], [place] [id number] PCP - General 11/14/09 Wastewater Treatment Supervisor Relationship Specialty Start Date End Date Kuldeep Khan MD [address] [place], [place] [id number] PCP - General 11/14/09 Wastewater Treatment Supervisor Relationship Specialty Start Date End Date Kuldeep Khan MD [address] [place], [place] [id number] PCP - General 11/14/09 Wastewater Treatment Supervisor Relationship Specialty Start Date End Date Kuldeep Khan MD [address] [facility] [place] [address] PCP - General 11/14/09 Wastewater Treatment Supervisor Relationship Specialty Start Date End Date Kuldeep Khan MD [address] [place] [address] PCP - General 11/14/09 Wastewater Treatment Supervisor Relationship Specialty Start Date End Date Kuldeep Khan MD [address] [place] [address] PCP - General 11/14/09 Wastewater Treatment Supervisor Relationship Specialty Start Date End Date Kuldeep Khan MD [address] [place] [address] PCP - General 11/14/09 Wastewater Treatment Supervisor Relationship Specialty Start Date End Date Kuldeep Khan MD [address] [place] [address] PCP - General 11/14/09 Wastewater Treatment Supervisor Relationship Specialty Start Date End Date Kuldeep Khan MD [address] [place] [address] PCP - General 11/14/09 Wastewater Treatment Supervisor Relationship Specialty Start Date End Date Kuldeep Khan MD [address] [place] [address] PCP - General 11/14/09 Wastewater Treatment Supervisor Relationship Specialty Start Date End Date Kuldeep Khan MD [address] [place] [address] PCP - General 11/14/09 Wastewater Treatment Supervisor Relationship Specialty Start Date End Date Kuldeep Khan MD [address] [place] [address] PCP - General 11/14/09 Wastewater Treatment Supervisor Relationship Specialty Start Date End Date Kuldeep Khan MD [address] [place] [address] PCP - General 11/14/09 Wastewater Treatment Supervisor Relationship Specialty Start Date End Date Kuldeep Khan MD [address] [place] [address] PCP - General 11/14/09 Wastewater Treatment Supervisor Relationship Specialty Start Date End Date Kuldeep Khan MD [address] [place] [address] PCP - General 11/14/09 Wastewater Treatment Supervisor Relationship Specialty Start Date End Date Kuldeep Khan MD [address] [place] [address] PCP - General 11/14/09 Wastewater Treatment Supervisor Relationship Specialty Start Date End Date Kuldeep Khan MD [address] [place] [address] PCP - General 11/14/09 Wastewater Treatment Supervisor Relationship Specialty Start Date End Date Kuldeep Khan MD [address] [place] [address] PCP - General 11/14/09 Wastewater Treatment Supervisor Relationship Specialty Start Date End Date Kuldeep Khan MD [address] [place] [address] PCP - General 11/14/09 Wastewater Treatment Supervisor Relationship Specialty Start Date End Date Kuldeep Khan MD [address] [place] [address] PCP - General 11/14/09 Wastewater Treatment Supervisor Relationship Specialty Start Date End Date Kuldeep Khan MD [address] [place] [address] PCP - General 11/14/09 Wastewater Treatment Supervisor Relationship Specialty Start Date End Date Kuldeep Khan MD [address] [place] [address] PCP - General 11/14/09 Wastewater Treatment Supervisor Relationship Specialty Start Date End Date Kuldeep Khan MD [address] [place] [address] PCP - General 11/14/09 Wastewater Treatment Supervisor Relationship Specialty Start Date End Date Kuldeep Khan MD [address] [place] [address] PCP - General 11/14/09 Wastewater Treatment Supervisor Relationship Specialty Start Date End Date Kuldeep Khan MD [address] [place] [address] PCP - General 11/14/09 Wastewater Treatment Supervisor Relationship Specialty Start Date End Date Kuldeep Khan MD [address] [place] [address] PCP - General 11/14/09 Wastewater Treatment Supervisor Relationship Specialty Start Date End Date Kuldeep Khan MD [address] [place] [address] PCP - General 11/14/09 Wastewater Treatment Supervisor Relationship Specialty Start Date End Date Kuldeep Khan MD [address] [place] [address] PCP - General 11/14/09 Wastewater Treatment Supervisor Relationship Specialty Start Date End Date Kuldeep Khan MD [address] [place], [place] [address] PCP - General 11/14/09 Wastewater Treatment Supervisor Relationship Specialty Start Date End Date Kuldeep Khan MD [address] [place], [place] [address] PCP - General 11/14/09 Wastewater Treatment Supervisor Relationship Specialty Start Date End Date Kuldeep Khan MD [address] [place], [place] [address] PCP - General 11/14/09 Wastewater Treatment Supervisor Relationship Specialty Start Date End Date Kuldeep Khan MD [address] [place], [place] [id number] PCP - General 11/14/09 Wastewater Treatment Supervisor Relationship Specialty Start Date End Date Kuldeep Khan MD [address] [place], [place] [id number] PCP - General 11/14/09 Wastewater Treatment Supervisor Relationship Specialty Start Date End Date Kuldeep Khan MD [address] [place], [place] [id number] PCP - General 11/14/09 Wastewater Treatment Supervisor Relationship Specialty Start Date End Date Kuldeep Khan MD [address] [place], [place] [id number] PCP - General 11/14/09 Paula Ramos, summons server Automobile Rental Agent 08/26/24 09/25/24 Wastewater Treatment Supervisor Relationship Specialty Start Date End Date Kuldeep Khan MD [address] [place], [place] [address] PCP - General 11/14/09 Paula Ramos, summons server Automobile Rental Agent 08/26/24 09/25/24 Wastewater Treatment Supervisor Relationship Specialty Start Date End Date Kuldeep Khan MD [address] [facility] [place] [address] PCP - General 11/14/09 Paula Ramos summons server Automobile Rental Agent 08/26/24 09/25/24 Wastewater Treatment Supervisor Relationship Specialty Start Date End Date Kuldeep Khan MD [address] [place] [address] PCP - General 11/14/09 Paula Ramos RN Primary Care Automobile Rental Agent 08/26/24 09/25/24 Wastewater Treatment Supervisor Relationship Specialty Start Date End Date Kuldeep Khan MD [address] [place] [address] PCP - General 11/14/09 Paula Ramos summons server Automobile Rental Agent 08/26/24 09/25/24 Wastewater Treatment Supervisor Relationship Specialty Start Date End Date Kuldeep Khan MD [address] [facility] [place] [address] PCP - General 11/14/09 Paula Ramos, summons server Automobile Rental Agent 08/26/24 09/25/24 Wastewater Treatment Supervisor Relationship Specialty Start Date End Date Kuldeep Khan MD [address] [place] [address] PCP - General 11/14/09 Wastewater Treatment Supervisor Relationship Specialty Start Date End Date Kuldeep Khan MD [address] [place] [address] PCP - General 11/14/09 Wastewater Treatment Supervisor Relationship Specialty Start Date End Date Kuldeep Khan MD [address] [place] [address] PCP - General 11/14/09 Wastewater Treatment Supervisor Relationship Specialty Start Date End Date Kuldeep Khan MD [address] [place] [address] PCP - General 11/14/09 Wastewater Treatment Supervisor Relationship Specialty Start Date End Date Kuldeep Khan MD [address] [place] [address] PCP - General 11/14/09 Wastewater Treatment Supervisor Relationship Specialty Start Date End Date Kuldeep Khan MD [address] [place] [address] PCP - General 11/14/09 Wastewater Treatment Supervisor Relationship Specialty Start Date End Date Kuldeep Khan MD [address] [place] [address] PCP - General 11/14/09 Wastewater Treatment Supervisor Relationship Specialty Start Date End Date Kuldeep Khan MD [address] [place] [address] PCP - General 11/14/09 Wastewater Treatment Supervisor Relationship Specialty Start Date End Date Kuldeep Khan MD [address] [place] [address] PCP - General 11/14/09 Team Status: Active Member Role/Relationship Status Dates Dr. Halie Butts , DO Primary Care Provider Active Team Status: Inactive Member Role/Relationship Status Dates Dr. Halie Butts , DO Primary Care Provider Active Start: April 08, 2025 End: April 08, 2025 Dr. Darryl Galeano , Emergency Provider Active Start: April 08, 2025 End: April 08, 2025 Wastewater Treatment Supervisor Relationship Specialty Start Date End Date Diony Ferreira MD [address] [place] [address] PCP - General Internal Medicine/Pediatrics 04/14/25 Wastewater Treatment Supervisor Relationship Specialty Start Date End Date Diony Ferreira MD [address] [place] [address] PCP - General Internal Medicine/Pediatrics 04/14/25 Wastewater Treatment Supervisor Relationship Specialty Start Date End Date Diony Ferreira MD [address] [place], [place] [address] PCP - General Internal Medicine/Pediatrics 04/14/25 Wastewater Treatment Supervisor Relationship Specialty Start Date End Date Diony Ferreira MD [address] [place] [address] PCP - General Internal Medicine/Pediatrics 04/14/25 Wastewater Treatment Supervisor Relationship Specialty Start Date End Date Diony Ferreira MD [address] [place] [address] PCP - General Internal Medicine/Pediatrics 04/14/25 Wastewater Treatment Supervisor Relationship Specialty Start Date End Date Diony Ferreira MD [address] [place] [address] PCP - General Internal Medicine/Pediatrics 04/14/25 Team Status: Inactive Member Role/Relationship Status Dates Dr. Halie Butts , DO Primary Care Provider Active Start: April 08, 2025 End: April 08, 2025 Dr. Darryl Galeano , DO Attending Provider Active Start: April 08, 2025 End: April 08, 2025 Dr. Darryl Galeano , DO Emergency Provider Active Start: April 08, 2025 End: April 08, 2025 Team Status: Inactive Member Role/Relationship Status Dates Dr. Halie Butts , DO Primary Care Provider Active Start: April 29, 2025 End: April 29, 2025 Dr. Nate Bowling , DO Emergency Provider Active Start: April End: April 29, 2025 Wastewater Treatment Supervisor Relationship Specialty Start Date End Date Diony Ferreira MD [address] [place] [address] PCP - General Internal Medicine/Pediatrics 04/14/25 Wastewater Treatment Supervisor Relationship Specialty Start Date End Date Diony Ferreira MD [address] [place] [address] PCP - General Internal Medicine/Pediatrics 04/14/25 Scheduled Active and Recently Administ ered Medications (unrecognized section and content) Medication Order 05/15/2024 05/16/2024 05/17/2024 diphenhydrAMINE (BENADRYL) injection 25 mg (COMPLETED) 25 mg, Intravenous, ONCE, 1 dose, On 05/17/24 at 1730 1714 (Given - Provid er: Ella Woods RN) Metoclopramide (REGLAN) injection 5 mg (COMPLETED) 5 mg, Intravenous, ONCE, 1 dose, On 05/17/24 at 1730 1713 (Given - Provid er: Ella Woods RN) Sodium chloride 0.9% IV solution 1,000 mL (COMPLETED) 1,000 mL, Intravenous, ONCE, 1 dose, On 05/17/24 at 1730 1713 ($$New Bag$$ - Provider: Ella Woods RN)1819 (Stopped - Provider: Ella Woods RN) INFORMATION SOURCE (unrecogn ized section and content) DATE CREATED AUTHOR 05/21/2024 [facility] DATE CREATED AUTHOR AUTHOR'S ORGANIZ ATION 08/30/2024 [facility] DATE CREATED AUTHOR AUTHOR'S ORGANIZ ATION 05/02/2025 [facility] DATE CREATED AUTHOR AUTHOR'S ORGANIZ ATION 05/03/2025 [facility] Goals (unrecognized section and content) Goals may be documented in a n alternate sectionGoals may be documented in an alternate section FOR RECORDS PERTAINING TO PATIENTS WHO ARE OR HAVE BEEN ENROLLED IN A CHEMICAL DEPENDENCY/SUBSTANCEABUSE PROGRAM, SOME INFORMATION MAY BE OMITTED. This clinical summary was aggregated from multiple sources. Caution should be exercised in using it in the provision of clinical care. This summary normalizes information from multiple sources, and as a consequence, information in this document may materially change the coding, format and clinical context of patient data. In addition, data may be omitted in some cases. CLINICAL DECISIONS SHOULD BE BASED ON THE PRIMARY CLINICAL RECORDS. [facility] [facility] provides no warranty or guarantee of the accuracy or completeness of information in this document.
[2025-05-07 00:20] VITALS: BMI 26.4
[2025-05-07] MEDS: Dext 5%-0.45% NS 1,000 ML 200 ML IV (00:55)
[2025-05-07] MEDS: Famotidine 200 MG/20 ML MDV 20 MG in 0.9% Normal Saline (Pres. free 8 ML 300 MG IV ×2 (01:02→13:22)
[2025-05-07 05:28] VITALS: BP 101/65; PULSE 70; RESP 14; O2SAT 97
--- NOTE | 2025-05-07 09:11 | PCM.PN.OB ---
Subjective Subjective Feeling better today. Mild nausea no vomiting. Has not tried food. Zofran pump on order Objective Data Objective Data Vital Signs: Vital Signs Temp Pulse Resp BP Pulse Ox O2 Del Method 98.5 F 70 14 101/65 97 Room Air 05/06/25 23:41 05/07/25 05:28 05/07/25 05:28 05/07/25 05:28 05/07/25 05:28 05/07/25 05:28 Oxygen Delivery Method Room Air Weight: 71.9 kg Body Mass Index (BMI) 26.4 Intake & Output: Intake and Output for Last 24 Hours 05/05/25 05/06/25 05/07/25 23:59 23:59 23:59 Intake Total 1999 1010 / 1010 Output Total 650 / 650 Balance 1999 360 / 360 Lab / Micro Data 05/06/25 18:33 Labs: Laboratory Results - last 24 hr 05/06/25 18:33: Sodium 137, Potassium 4.0, Chloride 104, Carbon Dioxide 20.9 L, Anion Gap 12, BUN 6, Creatinine 0.50 L, Estim Creat Clear Calc 182.39, Est GFR (MDRD) Non-Af 138, BUN/Creatinine Ratio 12.8, Glucose 83, Calcium 9.2 05/06/25 20:55: Urine Color Yellow, Urine Clarity Cloudy, Urine pH 6.0, Ur Specific [place] 1.025, Urine Protein 15 H, Urine Glucose (UA) Normal, Urine Ketones 150 A*, Urine Occult Blood Negative, Urine Nitrite Negative, Urine Bilirubin Negative, Urine Urobilinogen Normal, Ur Leukocyte Esterase 100 H Physical Exam Const alert and no apparent distress General Appearance: cooperative HEENT normocephalic Resp normal respiratory effort Cardio regular rate GI soft to palpation Extremity no calf tenderness General Extremity: edema Skin no wounds Rashes: No rashes noted Psych activity/motor behavior normal Assessment & Plan (1) Failure of outpatient treatment: (2) Hyperemesis gravidarum before end of 22 week gestation with dehydration: PLAN: Plan Discharge home today
[2025-05-07 12:00] VITALS: BP 99/67; PULSE 100; RESP 16; TEMP 37.2; O2SAT 100
== END 2025-05-07 14:00 | disposition home or self-care (01) ==
LOC: ED 23:31 → WP 05-07 02:04
PROVIDERS: Admitting Provider Obstetrics & Gynecology; Emergency Provider Emergency Medicine; PCP Family Medicine; Visit Provider Obstetrics & Gynecology
DX: O21.1 Hyperemesis gravidarum with metabolic disturbance (principal); E88.89 Other specified metabolic disorders; O99.281 Endocrine, nutritional and metabolic diseases complicating pregnancy, first trimester; Z3A.08 8 weeks gestation of pregnancy
CPT/HCPCS: 96374; 96375 ×2; 96376 ×3; 96361 ×2; 80048; 81002; 99221; 99285; A4216; G0378; J2405

== ENCOUNTER 2025-05-20 16:43 | Emergency (ER) | payer MEDICAID, SELFPAY ==
[2025-05-20 16:43] VITALS: BP 102/76; PULSE 88; RESP 24; TEMP 36.2; O2SAT 97; BMI 26.3
[2025-05-20 17:18] LABS: Mucous, Urine 0 SEEN /hpf (<or=2+); Red Blood Cells-Urine 0 SEEN /hpf (0-5)
[2025-05-20 17:20] LABS: Color, Urine Yellow (Yellow); Glucose, Dipstick Normal (Normal); Ketone-Dipstick Negative (Negative); Leukocyte Esterase-Dipstick 100 /ul (Negative); Nitrite-Dipstick Negative (Negative); Occult Blood-Urine Negative /ul (Negative); Protein-Dipstick 15 mg/dl (Negative); Specific Gravity, Urine 1.010 (1.002-1.030); Urine Bilirubin Dipstick Negative (Negative)
[2025-05-20 17:21] LABS: Hematocrit 42.7 % (37-47); Hemoglobin 14.4 g/dL (12.0-15.0); Immature Granulocytes Count 0.040 X10^3/uL (0.0-0.0); Mean Corp Hgb Conc 33.7 g/dL (32-36); Mean Corpuscular Volume 83.4 fL (81-99); Mean Platelet Vol. 11.2 fl (6.2-12.0); NRBC Flagged by Analyzer 0 % (0-5); Platelet Count 256 K/mm3 (150-450); RBC Distribution Width CV 12.4 % (11.6-14.6); RBC Distribution Width SD 37.5 fl (35.1-43.9); Red Blood Count 5.12 M/mm3 (4.2-5.4); White Blood Count 11.3 K/mm3 (4.4-11.0)
[2025-05-20 17:35] LABS: Squamous Epithelial Cells - UA 5-10 SEEN /hpf (5-10); Yeast-Urine RARE /hpf (None Seen)
[2025-05-20 17:55] LABS: AST(SGOT) 19 U/L (<=31); Alanine Aminotransfer ALT/SGPT 18 U/L (<=34); Albumin, Serum 4.1 g/dL (3.5-5.0); Alkaline Phosphatase 107 U/L (35-104); Anion Gap 12 (5-15); BUN 3 mg/dL (4-19); BUN/Creat Ratio 7.4 RATIO (10-20); Calcium,Total 9.5 mg/dL (7.6-11.0); Carbon Dioxide 21.4 mmol/L (21.0-32.0); Chloride 103 mmol/L (98-108); Estimated Creatinine Clearance 193.65 ml/min (50-250); Globulin 2.6 g/dL (2.2-4.2); Glucose 92 mg/dL (70-99); Internal QC Validated? YES +Cl - CLEAR BKGD; Lipase 38 U/L (13-75); Potassium 3.7 mmol/L (3.3-5.1); Pregnancy, Serum, hCG Quali. POSITIVE Negative; Record Kit Lot#, Serum Preg. 0000980607
--- NOTE | 2025-05-20 17:57 | ED.VIS.FEGU ---
HPI HPI - Female History of Present Illness Chief Complaint: Detail of Chief Complaint: First trimester with a gush of fluid and lower cramping pain Informant: patient and spouse/S.O. Pain Pain: Positive for Pelvic Pain Current Severity: Moderate Maximum Severity: Severe Worsened by: - (Nothing specific) Relieved by: - (Nothing) Bleeding Issue: Negative for Vaginal bleeding, Passing clots or Passing tissue Associated Symptoms Associated Symptoms: Positive for Frequency; Negative for Dysuria, Urgency, Hematuria, Missed Period or Irregular Period Last known menstrual period: Patient is 10 weeks gestation. Test: Positive Sexually: Positive for Active Control: No control P: 1 Ab: 0 Narrative Narrative: Patient is a 20-year-old G2, P1 Ab0 female who is followed through the [facility]. She has not had care to this point. She apparently had a gush of fluid. states that saturated her pants/jeans. She denies vaginal bleeding. She states she has O- blood. She denies orthostatic symptoms. She does complain of cramping and pelvic pain. She endorses frequency without dysuria or hematuria. She denies low back pain or flank pain. Prior similar symptoms: No Recent Illness/Hospitalization: No PFSH PFSH Medical History Musculoskeletal pain Pyelonephritis ADHD Home Medications ?Medication ?Instructions ?Recorded ?Last Taken ?Type vit no.95-ferrous 1 tab PO DAILY 08/24/24 04/07/25 History fumarate 28 mg-folic acid 800 mcg tablet () ondansetron HCl 4 mg tablet 4 mg PO Q8H PRN PRN nausea/vomiting 04/08/25 04/07/25 History cholecalciferol (vitamin D3) 25 25 mcg PO DAILY 05/20/25 Unknown History mcg (1,000 unit) capsule clotrimazole 1 % topical cream applic topical BID 05/20/25 Unknown History hydrocortisone 1 % topical ointment topical 05/20/25 Unknown History promethazine 12.5 mg rectal 12.5 mg MA Q6H PRN PRN nausea 05/20/25 Unknown History suppository Allergy/AdvReac Type Severity Reaction Status Date / Time No Known Allergies Allergy Verified 05/20/25 16:43 Social History household members: spouse and children Smoking Status: Never smoker ROS ROS ED Constitutional Constitutional ED: Denies chills, fever(s) or subjective Eyes Eyes: Denies blurry vision or change in vision ENT ENT ED: Denies ear pain, rhinorrhea or sore throat Cardiovascular Cardiovascular: Denies chest pain or palpitations Respiratory/Chest Respiratory/Chest: Denies cough, dyspnea or dyspnea on exertion Gastrointestinal Gastrointestinal: Reports abdominal pain; Denies nausea or vomiting Genitourinary Genitourinary ED: Reports urinary frequency; Denies dysuria or hematuria Musculoskeletal Musculoskeletal: Denies arthralgias or myalgias Neurologic Neurologic: Denies headache(s) Hematologic/Lymphatic Hematologic/Lymphatic: Denies easy bleeding or easy bruising EXAM Physical Exam Const Vital Signs: 05/20/25 16:43 Temperature 97.2 F L Temperature Source Temporal Pulse Rate 88 Respiratory Rate 24 H Blood Pressure 102/76 Blood Pressure Mean 84 Pulse Ox 97 Oxygen Delivery Method Room Air Positive well nourished and well developed General Appearance ED: well developed, NAD and pallor HEENT Reports moist mucous membranes HEENT Narrative: Head is normal cephalic and atraumatic. Eyes PERRL and EOMs intact bilaterally General Eye ED: Negative for pale conjunctiva or scleral icterus Neck no lymphadenopathy, supple and no JVD Chest Wall inspection of chest normal and palpation of chest normal Resp normal respiratory effort and clear to auscultation bilaterally GI normal to inspection, nondistended, normoactive bowel sounds, soft to palpation, non-distended and no masses; Negative for non-tender Palpation: tender suprapubic Extremity normal to inspection and full ROM General Extremety ED: Negative for edema General Extremity: Negative for edema Neuro oriented x3 and CN's II-XII intact bilaterally Sensorium / Orientation: alert Psych mental status grossly normal Skin no rashes or lesions noted and no wounds General Skin Exam: pallor; Negative for jaundice MDM MDM MDM Narrative Medical decision making narrative: Quantitative hCG was ordered. Will need to perform pelvic exam to determine if ultrasound is indicated. Nurse protocol orders were initiated. Lab Data Attestation: I reviewed the patient's lab results. Lab results narrative: CBC is unremarkable. Competence of metabolic panel is unremarkable. Alkaline phosphatase slight elevated at 107. Urinalysis reveals 5-10 epithelial cells with 2+ bacteria. There is no pyuria. Suspect this is a contaminated specimen. Labs: Laboratory Results - last 24 hr 05/20/25 05/20/25 05/20/25 17:08 17:08 17:08 WBC 11.3 H Cancelled Corrected WBC Cancelled RBC 5.12 Cancelled Hgb 14.4 Hct MCV MCH MCHC RDW Std Deviation RDW Coeff of Derek Plt Count MPV Immature Gran % (Auto) Neut % (Auto) Lymph % (Auto) Weber % (Auto) Eos % (Auto) Baso % (Auto) Absolute Neuts (auto) Absolute Lymphs (auto) Total Counted Neutrophils % (Manual) Band Neutrophils % Lymphocytes % (Manual) Monocytes % (Manual) Eosinophils % (Manual) Basophils % (Manual) Metamyelocytes % Myelocytes % Promyelocytes % Blast Cells % Plasma Cell % (Manual) Other Cells % Nucleated RBC % Nucleated RBCs/100 WBC Differential Comment Diff Path Review Hypersegmented Neuts Atypical Lymphocytes Reactive Lymphocytes Smudge Cells Toxic Granulation Toxic Vacuolation Dohle Bodies Joyce Rods Platelet Estimate Plt Morphology Comment RBC Morphology Polychromasia Hypochromasia Basophilic Stippling Anisocytosis Microcytosis Macrocytosis Spherocytes Sickle Cells Target Cells Tear Drop Cells Ovalocytes Stomatocytes [place] Bodies [place] Cells Bite Cells Crenated Cell Acanthocytes (Spur) Rouleaux Schistocytes Sodium Potassium Chloride Carbon Dioxide Anion Gap BUN Creatinine Estim Creat Clear Calc Est GFR (MDRD) Non-Af BUN/Creatinine Ratio Glucose Calcium Total Bilirubin AST ALT Alkaline Phosphatase Total Protein Albumin Globulin Albumin/Globulin Ratio Lipase Serum , Qual Urine Color Urine Clarity Urine pH Ur Specific [place] Urine Protein Urine Glucose (UA) Urine Ketones Urine Occult Blood Urine Nitrite Urine Bilirubin Urine Urobilinogen Ur Leukocyte Esterase Urine RBC Urine WBC Ur Squamous Epith Cells Urine Bacteria Urine Mucus Urine Yeast 05/20/25 05/20/25 05/20/25 17:08 17:08 17:08 WBC Corrected WBC RBC Hgb Cancelled Hct 42.7 Cancelled MCV 83.4 Cancelled MCH 28.1 MCHC RDW Std Deviation RDW Coeff of Derek Plt Count MPV Immature Gran % (Auto) Neut % (Auto) Lymph % (Auto) Weber % (Auto) Eos % (Auto) Baso % (Auto) Absolute Neuts (auto) Absolute Lymphs (auto) Total Counted Neutrophils % (Manual) Band Neutrophils % Lymphocytes % (Manual) Monocytes % (Manual) Eosinophils % (Manual) Basophils % (Manual) Metamyelocytes % Myelocytes % Promyelocytes % Blast Cells % Plasma Cell % (Manual) Other Cells % Nucleated RBC % Nucleated RBCs/100 WBC Differential Comment Diff Path Review Hypersegmented Neuts Atypical Lymphocytes Reactive Lymphocytes Smudge Cells Toxic Granulation Toxic Vacuolation Dohle Bodies Joyce Rods Platelet Estimate Plt Morphology Comment RBC Morphology Polychromasia Hypochromasia Basophilic Stippling Anisocytosis Microcytosis Macrocytosis Spherocytes Sickle Cells Target Cells Tear Drop Cells Ovalocytes Stomatocytes [place] Bodies [place] Cells Bite Cells Crenated Cell Acanthocytes (Spur) Rouleaux Schistocytes Sodium Potassium Chloride Carbon Dioxide Anion Gap BUN Creatinine Estim Creat Clear Calc Est GFR (MDRD) Non-Af BUN/Creatinine Ratio Glucose Calcium Total Bilirubin AST ALT Alkaline Phosphatase Total Protein Albumin Globulin Albumin/Globulin Ratio Lipase Serum , Qual Urine Color Urine Clarity Urine pH Ur Specific [place] Urine Protein Urine Glucose (UA) Urine Ketones Urine Occult Blood Urine Nitrite Urine Bilirubin Urine Urobilinogen Ur Leukocyte Esterase Urine RBC Urine WBC Ur Squamous Epith Cells Urine Bacteria Urine Mucus Urine Yeast 05/20/25 05/20/25 05/20/25 17:08 17:08 17:08 WBC Corrected WBC RBC Hgb Hct MCV MCH Cancelled MCHC 33.7 Cancelled RDW Std Deviation 37.5 Cancelled RDW Coeff of Derek 12.4 Plt Count MPV Immature Gran % (Auto) Neut % (Auto) Lymph % (Auto) Weber % (Auto) Eos % (Auto) Baso % (Auto) Absolute Neuts (auto) Absolute Lymphs (auto) Total Counted Neutrophils % (Manual) Band Neutrophils % Lymphocytes % (Manual) Monocytes % (Manual) Eosinophils % (Manual) Basophils % (Manual) Metamyelocytes % Myelocytes % Promyelocytes % Blast Cells % Plasma Cell % (Manual) Other Cells % Nucleated RBC % Nucleated RBCs/100 WBC Differential Comment Diff Path Review Hypersegmented Neuts Atypical Lymphocytes Reactive Lymphocytes Smudge Cells Toxic Granulation Toxic Vacuolation Dohle Bodies Joyce Rods Platelet Estimate Plt Morphology Comment RBC Morphology Polychromasia Hypochromasia Basophilic Stippling Anisocytosis Microcytosis Macrocytosis Spherocytes Sickle Cells Target Cells Tear Drop Cells Ovalocytes Stomatocytes [place] Bodies [place] Cells Bite Cells Crenated Cell Acanthocytes (Spur) Rouleaux Schistocytes Sodium Potassium Chloride Carbon Dioxide Anion Gap BUN Creatinine Estim Creat Clear Calc Est GFR (MDRD) Non-Af BUN/Creatinine Ratio Glucose Calcium Total Bilirubin AST ALT Alkaline Phosphatase Total Protein Albumin Globulin Albumin/Globulin Ratio Lipase Serum , Qual Urine Color Urine Clarity Urine pH Ur Specific [place] Urine Protein Urine Glucose (UA) Urine Ketones Urine Occult Blood Urine Nitrite Urine Bilirubin Urine Urobilinogen Ur Leukocyte Esterase Urine RBC Urine WBC Ur Squamous Epith Cells Urine Bacteria Urine Mucus Urine Yeast 05/20/25 05/20/25 05/20/25 17:08 17:08 17:08 WBC Corrected WBC RBC Hgb Hct MCV MCH MCHC RDW Std Deviation RDW Coeff of Derek Cancelled Plt Count 256 Cancelled MPV 11.2 Cancelled Immature Gran % (Auto) 0.400 Neut % (Auto) Lymph % (Auto) Weber % (Auto) Eos % (Auto) Baso % (Auto) Absolute Neuts (auto) Absolute Lymphs (auto) Total Counted Neutrophils % (Manual) Band Neutrophils % Lymphocytes % (Manual) Monocytes % (Manual) Eosinophils % (Manual) Basophils % (Manual) Metamyelocytes % Myelocytes % Promyelocytes % Blast Cells % Plasma Cell % (Manual) Other Cells % Nucleated RBC % Nucleated RBCs/100 WBC Differential Comment Diff Path Review Hypersegmented Neuts Atypical Lymphocytes Reactive Lymphocytes Smudge Cells Toxic Granulation Toxic Vacuolation Dohle Bodies Joyce Rods Platelet Estimate Plt Morphology Comment RBC Morphology Polychromasia Hypochromasia Basophilic Stippling Anisocytosis Microcytosis Macrocytosis Spherocytes Sickle Cells Target Cells Tear Drop Cells Ovalocytes Stomatocytes [place] Bodies [place] Cells Bite Cells Crenated Cell Acanthocytes (Spur) Rouleaux Schistocytes Sodium Potassium Chloride Carbon Dioxide Anion Gap BUN Creatinine Estim Creat Clear Calc Est GFR (MDRD) Non-Af BUN/Creatinine Ratio Glucose Calcium Total Bilirubin AST ALT Alkaline Phosphatase Total Protein Albumin Globulin Albumin/Globulin Ratio Lipase Serum , Qual Urine Color Urine Clarity Urine pH Ur Specific [place] Urine Protein Urine Glucose (UA) Urine Ketones Urine Occult Blood Urine Nitrite Urine Bilirubin Urine Urobilinogen Ur Leukocyte Esterase Urine RBC Urine WBC Ur Squamous Epith Cells Urine Bacteria Urine Mucus Urine Yeast 05/20/25 05/20/25 05/20/25 17:08 17:08 17:08 WBC Corrected WBC RBC Hgb Hct MCV MCH MCHC RDW Std Deviation RDW Coeff of Derek Plt Count MPV Immature Gran % (Auto) Cancelled Neut % (Auto) 75.5 H Cancelled Lymph % (Auto) 16.2 L Cancelled Weber % (Auto) 7.1 Eos % (Auto) Baso % (Auto) Absolute Neuts (auto) Absolute Lymphs (auto) Total Counted Neutrophils % (Manual) Band Neutrophils % Lymphocytes % (Manual) Monocytes % (Manual) Eosinophils % (Manual) Basophils % (Manual) Metamyelocytes % Myelocytes % Promyelocytes % Blast Cells % Plasma Cell % (Manual) Other Cells % Nucleated RBC % Nucleated RBCs/100 WBC Differential Comment Diff Path Review Hypersegmented Neuts Atypical Lymphocytes Reactive Lymphocytes Smudge Cells Toxic Granulation Toxic Vacuolation Dohle Bodies Joyce Rods Platelet Estimate Plt Morphology Comment RBC Morphology Polychromasia Hypochromasia Basophilic Stippling Anisocytosis Microcytosis Macrocytosis Spherocytes Sickle Cells Target Cells Tear Drop Cells Ovalocytes Stomatocytes [place] Bodies [place] Cells Bite Cells Crenated Cell Acanthocytes (Spur) Rouleaux Schistocytes Sodium Potassium Chloride Carbon Dioxide Anion Gap BUN Creatinine Estim Creat Clear Calc Est GFR (MDRD) Non-Af BUN/Creatinine Ratio Glucose Calcium Total Bilirubin AST ALT Alkaline Phosphatase Total Protein Albumin Globulin Albumin/Globulin Ratio Lipase Serum , Qual Urine Color Urine Clarity Urine pH Ur Specific [place] Urine Protein Urine Glucose (UA) Urine Ketones Urine Occult Blood Urine Nitrite Urine Bilirubin Urine Urobilinogen Ur Leukocyte Esterase Urine RBC Urine WBC Ur Squamous Epith Cells Urine Bacteria Urine Mucus Urine Yeast 05/20/25 05/20/25 05/20/25 17:08 17:08 17:08 WBC Corrected WBC RBC Hgb Hct MCV MCH MCHC RDW Std Deviation RDW Coeff of Derek Plt Count MPV Immature Gran % (Auto) Neut % (Auto) Lymph % (Auto) Weber % (Auto) Cancelled Eos % (Auto) 0.4 Cancelled Baso % (Auto) 0.4 Cancelled Absolute Neuts (auto) 8.5 H Absolute Lymphs (auto) Total Counted Neutrophils % (Manual) Band Neutrophils % Lymphocytes % (Manual) Monocytes % (Manual) Eosinophils % (Manual) Basophils % (Manual) Metamyelocytes % Myelocytes % Promyelocytes % Blast Cells % Plasma Cell % (Manual) Other Cells % Nucleated RBC % Nucleated RBCs/100 WBC Differential Comment Diff Path Review Hypersegmented Neuts Atypical Lymphocytes Reactive Lymphocytes Smudge Cells Toxic Granulation Toxic Vacuolation Dohle Bodies Joyce Rods Platelet Estimate Plt Morphology Comment RBC Morphology Polychromasia Hypochromasia Basophilic Stippling Anisocytosis Microcytosis Macrocytosis Spherocytes Sickle Cells Target Cells Tear Drop Cells Ovalocytes Stomatocytes [place] Bodies [place] Cells Bite Cells Crenated Cell Acanthocytes (Spur) Rouleaux Schistocytes Sodium Potassium Chloride Carbon Dioxide Anion Gap BUN Creatinine Estim Creat Clear Calc Est GFR (MDRD) Non-Af BUN/Creatinine Ratio Glucose Calcium Total Bilirubin AST ALT Alkaline Phosphatase Total Protein Albumin Globulin Albumin/Globulin Ratio Lipase Serum , Qual Urine Color Urine Clarity Urine pH Ur Specific [place] Urine Protein Urine Glucose (UA) Urine Ketones Urine Occult Blood Urine Nitrite Urine Bilirubin Urine Urobilinogen Ur Leukocyte Esterase Urine RBC Urine WBC Ur Squamous Epith Cells Urine Bacteria Urine Mucus Urine Yeast 05/20/25 05/20/25 05/20/25 17:08 17:08 17:08 WBC Corrected WBC RBC Hgb Hct MCV MCH MCHC RDW Std Deviation RDW Coeff of Derek Plt Count MPV Immature Gran % (Auto) Neut % (Auto) Lymph % (Auto) Weber % (Auto) Eos % (Auto) Baso % (Auto) Absolute Neuts (auto) Cancelled Absolute Lymphs (auto) 1.82 Cancelled Total Counted Cancelled Neutrophils % (Manual) Cancelled Band Neutrophils % Cancelled Lymphocytes % (Manual) Cancelled Monocytes % (Manual) Cancelled Eosinophils % (Manual) Cancelled Basophils % (Manual) Cancelled Metamyelocytes % Cancelled Myelocytes % Cancelled Promyelocytes % Cancelled Blast Cells % Cancelled Plasma Cell % (Manual) Cancelled Other Cells % Cancelled Nucleated RBC % 0 Cancelled Nucleated RBCs/100 WBC Cancelled Differential Comment Cancelled Diff Path Review Cancelled Hypersegmented Neuts Cancelled Atypical Lymphocytes Cancelled Reactive Lymphocytes Cancelled Smudge Cells Cancelled Toxic Granulation Cancelled Toxic Vacuolation Cancelled Dohle Bodies Cancelled Joyce Rods Cancelled Platelet Estimate Cancelled Plt Morphology Comment Cancelled RBC Morphology Cancelled Polychromasia Hypochromasia Basophilic Stippling Anisocytosis Microcytosis Macrocytosis Spherocytes Sickle Cells Target Cells Tear Drop Cells Ovalocytes Stomatocytes [place] Bodies [place] Cells Bite Cells Crenated Cell Acanthocytes (Spur) Rouleaux Schistocytes Sodium Potassium Chloride Carbon Dioxide Anion Gap BUN Creatinine Estim Creat Clear Calc Est GFR (MDRD) Non-Af BUN/Creatinine Ratio Glucose Calcium Total Bilirubin AST ALT Alkaline Phosphatase Total Protein Albumin Globulin Albumin/Globulin Ratio Lipase Serum , Qual Urine Color Urine Clarity Urine pH Ur Specific [place] Urine Protein Urine Glucose (UA) Urine Ketones Urine Occult Blood Urine Nitrite Urine Bilirubin Urine Urobilinogen Ur Leukocyte Esterase Urine RBC Urine WBC Ur Squamous Epith Cells Urine Bacteria Urine Mucus Urine Yeast 05/20/25 05/20/25 17:08 17:12 WBC Corrected WBC RBC Hgb Hct MCV MCH MCHC RDW Std Deviation RDW Coeff of Derek Plt Count MPV Immature Gran % (Auto) Neut % (Auto) Lymph % (Auto) Weber % (Auto) Eos % (Auto) Baso % (Auto) Absolute Neuts (auto) Absolute Lymphs (auto) Total Counted Neutrophils % (Manual) Band Neutrophils % Lymphocytes % (Manual) Monocytes % (Manual) Eosinophils % (Manual) Basophils % (Manual) Metamyelocytes % Myelocytes % Promyelocytes % Blast Cells % Plasma Cell % (Manual) Other Cells % Nucleated RBC % Nucleated RBCs/100 WBC Differential Comment Diff Path Review Hypersegmented Neuts Atypical Lymphocytes Reactive Lymphocytes Smudge Cells Toxic Granulation Toxic Vacuolation Dohle Bodies Joyce Rods Platelet Estimate Plt Morphology Comment RBC Morphology Cancelled Polychromasia Cancelled Hypochromasia Cancelled Basophilic Stippling Cancelled Anisocytosis Cancelled Microcytosis Cancelled Macrocytosis Cancelled Spherocytes Cancelled Sickle Cells Cancelled Target Cells Cancelled Tear Drop Cells Cancelled Ovalocytes Cancelled Stomatocytes Cancelled [place] Bodies Cancelled [place] Cells Cancelled Bite Cells Cancelled Crenated Cell Cancelled Acanthocytes (Spur) Cancelled Rouleaux Cancelled Schistocytes Cancelled Sodium 136 Potassium 3.7 Chloride 103 Carbon Dioxide 21.4 Anion Gap 12 BUN 3 L Creatinine 0.46 L Estim Creat Clear Calc 193.65 Est GFR (MDRD) Non-Af 140 BUN/Creatinine Ratio 7.4 L Glucose 92 Calcium 9.5 Total Bilirubin 0.31 AST 19 ALT 18 Alkaline Phosphatase 107 H Total Protein 6.7 Albumin 4.1 Globulin 2.6 Albumin/Globulin Ratio 1.6 Lipase 38 Serum , Qual POSITIVE Urine Color Yellow Urine Clarity Sl. Cloudy Urine pH 7.0 Ur Specific [place] 1.010 Urine Protein 15 H Urine Glucose (UA) Normal Urine Ketones Negative Urine Occult Blood Negative Urine Nitrite Negative Urine Bilirubin Negative Urine Urobilinogen Normal Ur Leukocyte Esterase 100 H Urine RBC 0 SEEN Urine WBC 0-5 SEEN Ur Squamous Epith Cells 5-10 SEEN Urine Bacteria 2+ Urine Mucus 0 SEEN Urine Yeast RARE Management Discussion w/another healthcare provider: Social Media Assistant (Spoke to Dr. Blanco who is on-call for [facility]. She was informed of patient's history and concerns, my physical findings and ultrasound performed by me. She informing that patient has an appointment to be seen May 26. This should be satisfactory.) Procedures Other Procedures Procedure(s): Transabdominal ultrasound was performed by me. Single live intrauterine noted. Heart rate 140-150. The skull, torso and extremities were seen. The right lower extremity was only partially seen. Discharge Plan Triage Chief Complaint: ED Provider: Isidro Payne Dx/Rx/DC Orders Clinical Impression: Pelvic pain affecting in first trimester, antepartum, Tachypnea Instructions: 1st Trimester Prescriptions: No Action ondansetron HCl 4 mg tablet 4 mg PO Q8H PRN PRN (Reason: nausea/vomiting) hydrocortisone 1 % ointment topical promethazine 12.5 mg suppository 12.5 mg MA Q6H PRN PRN (Reason: nausea) clotrimazole 1 % cream topical BID cholecalciferol (vitamin D3) 25 mcg (1,000 unit) capsule 25 mcg PO DAILY PNV no.95-ferrous fumarate-FA [] 28 mg iron- 800 mcg tablet 1 tab PO DAILY Primary Care Provider: Halie Butts Referrals: Halie Butts DO [Primary Care Provider, Family Practice] Activity Restrictions/Additional Instructions: Keep scheduled OB appointment for May 28. Print Language: Azerbaijani Disposition Disposition: Home, Self Care
[2025-05-20 19:12] VITALS: BP 107/66; PULSE 68; RESP 15; TEMP 36.9; O2SAT 99
== END 2025-05-20 23:59 | disposition home or self-care (01) ==
PROVIDERS: Emergency Provider Emergency Medicine; PCP Family Medicine; Visit Provider Emergency Medicine
DX: O99.891 Other specified diseases and conditions complicating pregnancy (principal); R10.20 Pelvic and perineal pain unspecified side; R06.82 Tachypnea, not elsewhere classified; Z3A.00 Weeks of gestation of pregnancy not specified
CPT/HCPCS: 80053; 81001; 83690; 84702; 84703; 85025; 99283; A4216

== ENCOUNTER 2025-06-01 13:51 | Emergency (ER) | payer MEDICAID, SELFPAY ==
[2025-06-01 13:51] VITALS: BP 116/75; PULSE 124; RESP 18; TEMP 36.8; O2SAT 99; BMI 25.6
--- NOTE | 2025-06-01 14:25 | ED.VIS.FEGU ---
HPI HPI - Female History of Present Illness Chief Complaint: Complaint Informant: patient Narrative Narrative: Patient is a 20-year-old female, approximately 12-16 weeks , presenting with dysuria, hematuria, and nonlateralizing low back pain. - Symptoms began today, progressively worsening. - Reports back pain across the lower back. - Associated symptoms include hematuria and pain in the abdomen. - Describes abdominal pain as similar to contractions experienced in a previous . - Denies vaginal bleeding or discharge. - Has a history of a prior kidney infection, noting current symptoms feel similar. - Reports no emesis, stating she has already been nauseated with her . [facility] Medical History Musculoskeletal pain Pyelonephritis ADHD Home Medications ?Medication ?Instructions ?Recorded ?Last Taken ?Type vit no.95-ferrous 1 tab PO DAILY 08/24/24 04/07/25 History fumarate 28 mg-folic acid 800 mcg tablet () ondansetron HCl 4 mg tablet 4 mg PO Q8H PRN PRN nausea/vomiting 04/08/25 04/07/25 History cholecalciferol (vitamin D3) 25 25 mcg PO DAILY 05/20/25 Unknown History mcg (1,000 unit) capsule clotrimazole 1 % topical cream applic topical BID 05/20/25 Unknown History hydrocortisone 1 % topical ointment topical 05/20/25 Unknown History promethazine 12.5 mg rectal 12.5 mg OR Q6H PRN PRN nausea 05/20/25 Unknown History suppository nitrofurantoin 100 mg PO Q12 #14 CAPSULES 06/01/25 Unknown Rx monohydrate/macrocrystals 100 mg capsule phenazopyridine 200 mg tablet 200 mg PO BID PRN PRN Pain #10 tabs 06/01/25 Unknown Rx (Pyridium) Allergy/AdvReac Type Severity Reaction Status Date / Time No Known Allergies Allergy Verified 06/01/25 13:51 Social History household members: spouse and children Smoking Status: Never smoker ROS ROS ED Constitutional Constitutional ED: Denies chills or fever(s) Eyes Eyes: Denies change in vision or diplopia ENT ENT ED: Denies rhinorrhea or sore throat Cardiovascular Cardiovascular: Denies chest pain or palpitations Respiratory/Chest Respiratory/Chest: Denies cough or dyspnea Gastrointestinal Gastrointestinal: Reports abdominal pain and nausea; Denies diarrhea or vomiting Genitourinary Genitourinary ED: Reports dysuria, hematuria and urinary frequency Musculoskeletal Musculoskeletal: Reports back pain; Denies neck pain Integumentary Denies abscess or rash Neurologic Neurologic: Denies headache(s), paresthesias or weakness Psychiatric Psychiatric: Denies suicidal thoughts EXAM Physical Exam Const Vital Signs: 06/01/25 13:51 Temperature 98.2 F Temperature Source Oral Pulse Rate 124 H Respiratory Rate 18 Blood Pressure 116/75 Blood Pressure Mean 88 Pulse Ox 99 Oxygen Delivery Method Room Air Positive well nourished and well developed General Appearance ED: well developed and NAD HEENT Reports moist mucous membranes normocephalic and atraumatic Eyes PERRL and EOMs intact bilaterally Neck full ROM and supple Resp normal respiratory effort and clear to auscultation bilaterally Cardio regular rate, regular rhythm and no murmurs GI non-distended GI Narrative: Suprapubic tenderness without guarding or rebound. Otherwise benign abdomen. Auscultation: normoactive bowel sounds Palpation: soft Back/Spine no CVA tenderness General Back: other FROM Extremity normal to inspection General Extremety ED: Negative for edema, pulses abnormal or tenderness General Extremity: Negative for edema or pulses abnormal Neuro oriented x3, CN's II-XII intact bilaterally and no sensory deficits noted Sensorium / Orientation: awake and alert Motor Exam: strength 5/5 throughout Psych Mood & Affect: anxious Skin no rashes or lesions noted and no wounds MDM MDM MDM Narrative Medical decision making narrative: Nursing staff could not find heart tones, so I performed a bedside ultrasound, which demonstrated a single live intrauterine with heart tones of 161. The patient is doing well. Her urinalysis is consistent with infection, and clinically this presentation aligns with cystitis radiating to the low back. She does not have costovertebral angle tenderness, fevers, or vomiting, and she appears well, so I do not think this is pyelonephritis. I believe it is reasonable to treat her with Macrobid, given that she is , as well as pyridium as needed for dysuria, and have her follow up with her OB. I have sent a culture, and she is comfortable with this plan. Lab Data Attestation: I reviewed the patient's lab results. Labs: Laboratory Results - last 24 hr 06/01/25 14:30 Urine Color Yellow Urine Clarity Sl. Cloudy Urine pH 7.0 Ur Specific [place] 1.010 Urine Protein 100 H Urine Glucose (UA) Normal Urine Ketones Negative Urine Occult Blood 250 H Urine Nitrite Negative Urine Bilirubin Negative Urine Urobilinogen Normal Ur Leukocyte Esterase 500 H Urine RBC 5-10 SEEN Urine WBC 25-50 SEEN Ur Squamous Epith Cells 5-10 SEEN Urine Bacteria 2+ Urine Mucus 0 SEEN Discharge Plan Triage Chief Complaint: Complaint ED Provider: Sreedhar Kumari Dx/Rx/DC Orders Clinical Impression: Acute cystitis during in second trimester, Acute hemorrhagic cystitis Instructions: ED Cystitis Female Adult Prescriptions: New phenazopyridine [Pyridium] 200 mg tablet 200 mg PO BID PRN PRN (Reason: Pain) Qty: 10 0RF nitrofurantoin monohyd/m-cryst 100 mg capsule 100 mg PO Q12 Qty: 14 0RF No Action ondansetron HCl 4 mg tablet 4 mg PO Q8H PRN PRN (Reason: nausea/vomiting) hydrocortisone 1 % ointment topical promethazine 12.5 mg suppository 12.5 mg OR Q6H PRN PRN (Reason: nausea) clotrimazole 1 % cream topical BID cholecalciferol (vitamin D3) 25 mcg (1,000 unit) capsule 25 mcg PO DAILY PNV no.95-ferrous fumarate-FA [] 28 mg iron- 800 mcg tablet 1 tab PO DAILY Primary Care Provider: Halie Butts Referrals: Terri Qiu MD [Med Staff - Active Staff, Obstetrics-Gynecology (OBGYN)] - 3-5 Days if not improving Activity Restrictions/Additional Instructions: - Take Macrobid (nitrofurantoin) for your bladder infection as prescribed, and the pyridium as needed for the burning; picking tech the prescriptions at your pharmacy. - A urine culture has been sent to the lab to confirm the infection; we will contact you if the results require any change in treatment. - Follow up with your OB provider for ongoing care and to review your urinary infection management. Print Language: Greek Disposition Disposition: Home, Self Care
[2025-06-01 14:38] LABS: Mucous, Urine 0 SEEN /hpf (<or=2+)
[2025-06-01 14:45] LABS: Color, Urine Yellow (Yellow); Glucose, Dipstick Normal (Normal); Ketone-Dipstick Negative (Negative); Leukocyte Esterase-Dipstick 500 /ul (Negative); Nitrite-Dipstick Negative (Negative); Occult Blood-Urine 250 /ul (Negative); Protein-Dipstick 100 mg/dl (Negative); Specific Gravity, Urine 1.010 (1.002-1.030); Urine Bilirubin Dipstick Negative (Negative)
[2025-06-01 14:58] LABS: Red Blood Cells-Urine 5-10 SEEN /hpf (0-5); Squamous Epithelial Cells - UA 5-10 SEEN /hpf (5-10)
[2025-06-01 15:28] VITALS: BP 118/63; PULSE 69; RESP 14; TEMP 37.1; O2SAT 100
== END 2025-06-01 15:30 | disposition home or self-care (01) ==
PROVIDERS: Emergency Provider Emergency Medicine; PCP Family Medicine; Visit Provider Emergency Medicine
DX: O23.12 Infections of bladder in pregnancy, second trimester (principal); Z3A.16 16 weeks gestation of pregnancy; N30.01 Acute cystitis with hematuria
CPT/HCPCS: 81001; 87086; 87088; 99283